=== PATIENT | male | born 1980 | race Caucasian/White ===

== ENCOUNTER 2016-04-18 19:01 | Emergency (ER) | payer MEDICAID ==
[2016-04-18 19:18] VITALS: BP 137/97
[2016-04-18] MEDS ORDERED: Ketorolac 60 MG/2 ML SDV IM ONE (19:27)
[2016-04-18] MEDS ORDERED: cefTRIAXone 1 GM, Lidocaine 1% 2.1 ML IM ONE ×2 (19:27)
[2016-04-18] MEDS ORDERED: Acetaminophen/oxyCODONE 325-5 MG Tab PO ONE (19:28)
[2016-04-18] MEDS ORDERED: Lidocaine 4% Top Soln 50 ML Bottle MUCMEM ONE (19:29)
--- NOTE | 2016-04-18 19:35 | EDM.PDOC ---
ED HPI ENT - General Chief Complaint: ENT Problem Stated Complaint: BAD TOOTHACHE LEFT SIDE Time Seen by Provider: 04/18/16 19:29 Source: Reports: Patient History Limitations: Reports: No limitations - History of Present Illness INITIAL COMMENTS - FREE TEXT/NARRATIVE: pt has severe pain in the left lower gum line. The gums are red and inflammed. Timing/Duration: Reports: Day(s):, Getting worse Location: Reports: mouth Associated symptoms: Reports: other (pt is not able to eat. He has had such severe pain. ) - Related Data Allergies/ADRs: Allergies Allergy/AdvReac Type Severity Reaction Status Date / Time No Known Allergies Allergy Verified 04/18/16 19:18 Home Meds: Home Meds Baclofen [Baclofen] 10 mg PO TID 12/07/15 [History] Gabapentin [Gabapentin] 300 mg PO TID 12/07/15 [History] Past Medical History HEENT History: Reports: Other (see below) Other HEENT History: Carries Other Cardiovascular History: episode of blackouts Musculoskeletal History: Reports: Back pain, chronic Psychiatric History: Reports: Anxiety, Depression - Past Surgical History Neurological Surgical History: Reports: Laminectomy Musculoskeletal Surgical History: Reports: Other (see below) Other Musculoskeletal Surgeries/Procedures:: low back surgery Social & Family History - Tobacco Use Smoking Status *Q: Current Status Unknown Years of Tobacco use: 15 Packs/Tins Daily: 0.5 Used Tobacco, but Quit: No Second Hand Smoke Exposure: Yes - Caffeine Use Caffeine Use: Reports: Soda - Alcohol Use Days Per Week of Alcohol Use: 2 Number of Drinks Per Day: 6 Total Drinks Per Week: 12 - Recreational Drug Use Recreational Drug Use: No ED ROS ENT - Review of Systems Review Of Systems: See Below Constitutional: Reports: no symptoms HEENT: Reports: Dental pain Respiratory: Reports: no symptoms Cardiovascular: Reports: No symptoms Endocrine: Reports: no symptoms GI/Abdominal: Reports: No symptoms : Reports: no symptoms Musculoskeletal: Reports: no symptoms ED EXAM, ENT - Physical Exam Exam: See Below Text/Narrative:: pt has severe pain in a very carious tooth left lower. He has severe inflamation in the gum line. Exam Limited By: No limitations General Appearance: alert, anxious Ears: normal TMs Nose: normal inspection Mouth/Throat: Other (pt has a markedly inflamed gum line this is swollen. He was very demanding that he would hve the tooth pulled. I did explain to him that we do not pull teeth in [place] and he needed to be on antibiotics prior to the extraction. ) Head: atraumatic Neck: normal inspection Respiratory/Chest: no respiratory distress Cardiovascular: regular rate, rhythm GI/Abdominal: soft, non tender Course - Vital Signs Last Recorded V/S: Last Vital Signs Temp 36.1 C 04/18/16 19:14 Pulse 136 H 04/18/16 19:14 Resp 15 04/18/16 19:14 BP 137/97 H 04/18/16 19:14 Pulse Ox 94 L 04/18/16 19:14 - Orders/Labs/Meds Meds: Medications Discontinued Medications Generic Name Dose Route Start Last Admin Trade Name Matiq PRN Reason Stop Dose Admin Ceftriaxone Sodium 1 gm/ 0 gm 04/18/16 19:27 Lidocaine HCl 2.1 ml IM 04/18/16 19:28 ONETIME ONE Ketorolac Tromethamine 60 mg 04/18/16 19:27 Toradol IM 04/18/16 19:28 ONETIME ONE Lidocaine HCl 1 ml 04/18/16 19:29 Xylocaine 4% Top Soln MUCMEM 04/18/16 19:30 ONETIME ONE Oxycodone/Acetaminophen 1 tab 04/18/16 19:28 Percocet 325-5 Mg PO 04/18/16 19:29 ONETIME ONE - Re-Assessments/Exams Free Text/Narrative Re-Assessment/Exam: 04/18/16 19:41 pt was to receive torodol, percocet, and rocephen. He was to have a pack applied with 4% lidocaine to the site and he could reapply several times during the night. I advised I would do a referal to [facility] for 8 fifteen tomorrow. The nurse was getting the meds together and at that time the pt walked out and did not receive any of the treatment. Departure - Departure Time of Disposition: 19:44 Disposition: Eloped 07 Condition: fair Clinical Impression: Infected tooth Referrals: Jacob Lowe PA-C [Primary Care Provider] - Forms: ED Department Discharge Care Plan Goals: pt eloped without getting his treatment
== END 2016-04-18 20:00 | disposition left against medical advice (07) ==
LOC: JP.ED 19:01
DX: K04.7 Periapical abscess without sinus (principal); Z79.899 Other long term (current) drug therapy
CPT/HCPCS: 96372; 96374; 99283-25; A9270-GY

== ENCOUNTER 2017-04-27 11:10 | Emergency (ER) | payer OTHER, MEDICAID ==
[2017-04-27 11:48] VITALS: BP 116/84
--- NOTE | 2017-04-27 11:58 | EDM.PDOC ---
ED HPI GENERAL MEDICAL PROBLEM - General Chief Complaint: Back Pain or Injury Stated Complaint: BACK PAIN Time Seen by Provider: 04/27/17 11:58 Source of Information: Reports: Patient History Limitations: Reports: No Limitations - History of Present Illness INITIAL COMMENTS - FREE TEXT/NARRATIVE: pt works at the [employer] and he lifted a heavy barrel today and he felt like something gave way in his back He now has marked tightness in his lower back and more pain on the left side. Onset: Today Duration: Hour(s):, Getting Worse Location: Reports: Back Associated Symptoms: Reports: No Other Symptoms Lower Back Pain Score (Numeric/FACES): 9 - Related Data Allergies Allergy/AdvReac Type Severity Reaction Status Date / Time No Known Allergies Allergy Verified 04/18/16 19:18 Home Meds: Home Meds Lisinopril 10 mg PO DAILY 04/27/17 [History] PARoxetine [Paxil] 40 mg PO DAILY 04/27/17 [History] Past Medical History HEENT History: Reports: Other (See Below) Other HEENT History: Carries Other Cardiovascular History: episode of blackouts Musculoskeletal History: Reports: Back Pain, Chronic Psychiatric History: Reports: Anxiety, Depression - Past Surgical History Neurological Surgical History: Reports: Laminectomy Musculoskeletal Surgical History: Reports: Other (See Below) Social & Family History - Tobacco Use Smoking Status *Q: Current Every Day Smoker Years of Tobacco use: 17 Packs/Tins Daily: 1 Used Tobacco, but Quit: No Second Hand Smoke Exposure: Yes - Caffeine Use Caffeine Use: Reports: Coffee, Soda, Tea - Alcohol Use Days Per Week of Alcohol Use: 2 Number of Drinks Per Day: 6 Total Drinks Per Week: 12 - Recreational Drug Use Recreational Drug Use: No ED ROS GENERAL - Review of Systems Review Of Systems: See Below Constitutional: Reports: No Symptoms HEENT: Reports: No Symptoms Respiratory: Reports: No Symptoms Cardiovascular: Reports: No Symptoms Endocrine: Reports: No Symptoms GI/Abdominal: Reports: No Symptoms : Reports: No Symptoms Musculoskeletal: Reports: Other ( increased lower back pain. ) Skin: Reports: No Symptoms Neurological: Reports: No Symptoms ED EXAM,LOWER BACK PAIN/INJURY - Physical Exam Exam: See Below Text/Narrative:: pt arrived with pain in the lower lumbar area. He feels very tight on the left side. He has some pain which is radiating over the left buttock area. Exam Limited By: No Limitations General Appearance: Alert, Anxious Ears: Normal TMs Nose: Normal Inspection Throat/Mouth: Normal Inspection Head: Atraumatic Neck: Normal Inspection Respiratory/Chest: No Respiratory Distress Cardiovascular: Regular Rate, Rhythm GI/Abdominal: Soft, Non-Tender (Male) Exam: Deferred Back Exam: Muscle Spasm, Paraspinal Tenderness, Other (lower lumbar pin) Neurological: Alert, Oriented x 3 Psychiatric: Normal Affect Course - Vital Signs Last Recorded V/S: Last Vital Signs Temp 36.3 C 04/27/17 11:45 Pulse 108 H 04/27/17 11:45 Resp 16 04/27/17 11:45 BP 116/84 04/27/17 11:45 Pulse Ox 97 04/27/17 11:45 - Orders/Labs/Meds Orders: Active Orders 24 hr Category Date Time Status Lumbar Spine Min 4V [CR] Stat Exams 04/27/17 12:04 Taken Meds: Medications Discontinued Medications Generic Name Dose Route Start Last Admin Trade Name Freq PRN Reason Stop Dose Admin Cyclobenzaprine HCl 10 mg 04/27/17 12:02 04/27/17 12:14 Flexeril PO 04/27/17 12:03 10 mg ONETIME ONE Administration Ketorolac Tromethamine 60 mg 04/27/17 12:03 04/27/17 12:14 Toradol IM 04/27/17 12:04 60 mg ONETIME ONE Administration Oxycodone/Acetaminophen 1 tab 04/27/17 12:04 04/27/17 12:14 Percocet 325-5 Mg PO 04/27/17 12:05 1 tab ONETIME ONE Administration - Re-Assessments/Exams Free Text/Narrative Re-Assessment/Exam: 04/27/17 12:38 pt was given torodol 60mg im and percocet 5/325 . He is more comfortable. Xrays were obtained which did not show any disruption of his previous fusion. Departure - Departure Time of Disposition: 12:40 Disposition: Home, Self-Care 01 Condition: Fair Clinical Impression: Lumbar back sprain - Discharge Information Referrals: PCP,None [Primary Care Provider] - Forms: ED Department Discharge Care Plan Goals: rest, ice pack to lower rt lumbar area, flexeril 10 mg bid, motrin 600mg tid, percocet 5/325 q6h prn for pain. - My Orders Last 24 Hours: My Active Orders 04/27/17 12:04 Lumbar Spine Min 4V [CR] Stat - Assessment/Plan Last 24 Hours: My Active Orders 04/27/17 12:04 Lumbar Spine Min 4V [CR] Stat
[2017-04-27] MEDS: Acetaminophen/oxyCODONE 325-5 MG Tab PO ONE (12:14)
[2017-04-27] MEDS: Cyclobenzaprine 10 MG Tab PO ONE (12:14)
[2017-04-27] MEDS: Ketorolac 60 MG/2 ML SDV IM ONE (12:14)
--- NOTE | 2017-04-27 13:04 | CR ---
L-spine There is posterior surgical fusion at the L4/5 and L5/S1 levels. The hardware is intact. There is no evidence of instability with flexion or extension. There are disc spacers in place. Impression: 1. Postsurgical changes of lumbar spine without evidence for complication.
== END 2017-04-27 12:53 | disposition home or self-care (01) ==
LOC: JP.ED 11:10
DX: S33.5XXA Sprain of ligaments of lumbar spine, initial encounter (principal); F17.210 Nicotine dependence, cigarettes, uncomplicated; X50.0XXA Overexertion from strenuous movement or load, initial encounter; Y92.89 Other specified places as the place of occurrence of the external cause; Y99.0 Civilian activity done for income or pay; Z79.899 Other long term (current) drug therapy
CPT/HCPCS: 72110; 72110-26; 96372; 99284-25; A9270-GY; J1885

== ENCOUNTER 2018-04-09 15:53 | Inpatient (IN) | payer MEDICAID ==
[2018-04-09] MEDS ORDERED: Sodium Chloride 0.9% 1,000 ML IV SCH ×2 (16:15→19:20)
--- NOTE | 2018-04-09 16:34 | EDM.PDOC ---
ED HPI GENERAL MEDICAL PROBLEM - General Chief Complaint: General Stated Complaint: VIA [facility] Time Seen by Provider: 04/09/18 16:24 Source of Information: Reports: Patient History Limitations: Reports: No Limitations - History of Present Illness INITIAL COMMENTS - FREE TEXT/NARRATIVE: pt arrived with ahistory of falling to the floor when he stood up. He has done this several times. He did hit the back of his head today. He has drank about 1/ 8 of a liter of vodka today. Onset: Gradual, Other (pt drinks every day and he has passed out in the past. ) Duration: Hour(s): Location: Reports: Head, Abdomen Associated Symptoms: Reports: Syncope, Other (possible seizure) - Related Data Allergies Allergy/AdvReac Type Severity Reaction Status Date / Time No Known Allergies Allergy Verified 04/18/16 19:18 Home Meds: Home Meds Lisinopril 5 mg PO DAILY 04/27/17 [History] Baclofen 10 mg PO TID 04/09/18 [History] DULoxetine HCl [Duloxetine HCl] 30 mg PO DAILY 04/09/18 [History] Mirtazapine 7.5 mg PO BEDTIME PRN 04/09/18 [History] Topiramate [Topamax] 25 mg PO BID 04/09/18 [History] Past Medical History HEENT History: Reports: Other (See Below) Other HEENT History: Carries Other Cardiovascular History: episode of blackouts Musculoskeletal History: Reports: Back Pain, Chronic Psychiatric History: Reports: Anxiety, Depression - Past Surgical History Neurological Surgical History: Reports: Laminectomy Musculoskeletal Surgical History: Reports: Other (See Below) Social & Family History - Tobacco Use Smoking Status *Q: Heavy Tobacco Smoker Years of Tobacco use: 19 Packs/Tins Daily: 1 - Caffeine Use Caffeine Use: Reports: None - Alcohol Use Days Per Week of Alcohol Use: 7 Number of Drinks Per Day: 1 Total Drinks Per Week: 7 - Recreational Drug Use Recreational Drug Use: No ED ROS GENERAL - Review of Systems Review Of Systems: See Below Constitutional: Reports: Weakness, Decreased Appetite, Other (pt drinks regularly ) HEENT: Reports: No Symptoms Respiratory: Reports: No Symptoms Cardiovascular: Reports: No Symptoms Endocrine: Reports: No Symptoms GI/Abdominal: Reports: Decreased Appetite, Other (pt is drinking heavily. ) : Reports: No Symptoms Musculoskeletal: Reports: No Symptoms Skin: Reports: No Symptoms ED EXAM, GENERAL - Physical Exam Exam: See Below Free Text/Narrative:: pt appears clinically jaundiced. Pt fell and hit the back of his head. He did have syncopal episode. He drinks heavily 1.5 liters per day. Exam Limited By: No Limitations General Appearance: Alert, Anxious, Mild Distress, Other (pt appears clically jaundiced. ) Ears: Normal TMs Nose: Normal Inspection Throat/Mouth: Normal Inspection Head: Atraumatic Neck: Normal Inspection Respiratory/Chest: No Respiratory Distress Cardiovascular: Regular Rate, Rhythm, Tachycardia GI/Abdominal: Other (mild tenderness over the liver edge which is down 2 finger breaths. ) (Male) Exam: Deferred Rectal (Males) Exam: Deferred Back Exam: Normal Inspection Extremities: Normal Inspection Neurological: Alert, Oriented, Normal Cognition Psychiatric: Anxious Course - Vital Signs Last Recorded V/S: Last Vital Signs Temp 35.3 C 04/09/18 16:00 Pulse 98 04/09/18 16:00 Resp 14 04/09/18 16:00 BP 120/78 04/09/18 16:00 Pulse Ox 99 04/09/18 16:00 Orthostatic Blood Pressure [ 97/60 Standing] Orthostatic Blood Pressure [ 115/80 Sitting] Orthostatic Blood Pressure [ 126/82 Supine] - Orders/Labs/Meds Orders: Active Orders 24 hr Category Date Time Status Orthostatic Vital Signs [RC] ASDIRECTED Care 04/09/18 16:37 Active Abdomen Pelvis w Cont [CT] Stat Exams 04/09/18 17:19 Ordered DRUG SCREEN, URINE [URCHEM] Stat Lab 04/09/18 16:22 Ordered HEPATITIS PANEL (4) Stat Lab 04/09/18 16:46 Ordered UA W/MICROSCOPIC [URIN] Urgent Lab 04/09/18 16:04 Ordered Iopamidol [Isovue-300 (61%)] Med 04/09/18 17:30 Ordered 96 ml IV . DIRECTED Sodium Chloride 0.9% [Normal Saline] 1,000 ml Med 04/09/18 16:15 Active IV ASDIRECTED Sodium Chloride 0.9% [Normal Saline] 70 ml Med 04/09/18 17:30 Ordered IV ASDIRECTED Sodium Chloride 0.9% [Saline Flush] Med 04/09/18 17:27 Once 10 ml FLUSH ONETIME ONE Sodium Chloride 0.9% with KCl [Normal Saline with 40 Med 04/09/18 17:15 Active mEq KCl] 1,000 ml IV ASDIRECTED Medication Orders Sodium Chloride (Normal Saline) 1,000 mls @ 999 mls/hr IV ASDIRECTED RUSS Last Admin: 04/09/18 16:22 Dose: 999 mls/hr Potassium Chloride/Sodium Chloride (Normal Saline With 40 Meq Kcl) 1,000 mls @ 300 mls/hr IV ASDIRECTED RUSS Sodium Chloride (Normal Saline) 70 mls @ 3 mls/sec IV ASDIRECTED RUSS Iopamidol (Isovue-300 (61%)) 96 ml IV . DIRECTED RUSS Sodium Chloride (Saline Flush) 10 ml FLUSH ONETIME ONE Stop: 04/09/18 17:28 Labs: Laboratory Tests 04/09/18 04/09/18 04/09/18 Range/Units 16:04 16:04 16:04 WBC 4.5 (4.5-11.0) K/uL RBC 3.75 L (4.30-5.90) M/uL Hgb 12.3 (12.0-15.0) g/dL Hct 35.5 L (40.0-54.0) % MCV 95 (80-98) fL MCH 33 H (27-31) pg MCHC 35 (32-36) % Plt Count 85 L (150-400) K/uL Neut % (Auto) 48 (36-66) % Lymph % (Auto) 41 (24-44) % [place] % (Auto) 10 H (2-6) % Eos % (Auto) 1 L (2-4) % Baso % (Auto) 1 (0-1) % Sodium 132 L (140-148) mmol/L Potassium 3.2 L (3.6-5.2) mmol/L Chloride 90 L (100-108) mmol/L Carbon Dioxide 28 (21-32) mmol/L Anion Gap 17.2 H (5.0-14.0) mmol/L BUN 5 L (7-18) mg/dL Creatinine 0.7 L (0.8-1.3) mg/dL Est Cr Clr Drug Dosing 132.30 mL/min Estimated GFR (MDRD) > 60 (>60) Glucose 112 H (74-106) mg/dL Calcium 9.1 (8.5-10.1) mg/dL Total Bilirubin 7.7 H (0.2-1.0) mg/dL AST 213 H (15-37) U/L ALT 70 (12-78) U/L Alkaline Phosphatase 327 H (46-116) U/L Total Protein 7.0 (6.4-8.2) g/dL Albumin 2.7 L (3.4-5.0) g/dL Globulin 4.3 H (2.3-3.5) g/dL Albumin/Globulin Ratio 0.6 L (1.2-2.2) Amylase (25-115) U/L Lipase (73-393) U/L Ethyl Alcohol 261 mg/dL 04/09/18 04/09/18 Range/Units 16:39 17:14 WBC (4.5-11.0) K/uL RBC (4.30-5.90) M/uL Hgb (12.0-15.0) g/dL Hct (40.0-54.0) % MCV (80-98) fL MCH (27-31) pg MCHC (32-36) % Plt Count (150-400) K/uL Neut % (Auto) (36-66) % Lymph % (Auto) (24-44) % [place] % (Auto) (2-6) % Eos % (Auto) (2-4) % Baso % (Auto) (0-1) % Sodium (140-148) mmol/L Potassium (3.6-5.2) mmol/L Chloride (100-108) mmol/L Carbon Dioxide (21-32) mmol/L Anion Gap (5.0-14.0) mmol/L BUN (7-18) mg/dL Creatinine (0.8-1.3) mg/dL Est Cr Clr Drug Dosing mL/min Estimated GFR (MDRD) (>60) Glucose (74-106) mg/dL Calcium (8.5-10.1) mg/dL Total Bilirubin (0.2-1.0) mg/dL AST (15-37) U/L ALT (12-78) U/L Alkaline Phosphatase (46-116) U/L Total Protein (6.4-8.2) g/dL Albumin (3.4-5.0) g/dL Globulin (2.3-3.5) g/dL Albumin/Globulin Ratio (1.2-2.2) Amylase 68 (25-115) U/L Lipase 861 H (73-393) U/L Ethyl Alcohol mg/dL Meds: Medications Generic Name Dose Route Start Last Admin Trade Name Freq PRN Reason Stop Dose Admin Sodium Chloride 1,000 mls @ 999 mls/hr 04/09/18 16:15 04/09/18 16:22 Normal Saline IV 999 mls/hr ASDIRECTED RUSS Administration Potassium Chloride/Sodium Chloride 1,000 mls @ 300 mls/hr 04/09/18 17:15 Normal Saline With 40 Meq Kcl IV ASDIRECTED RUSS Sodium Chloride 70 mls @ 3 mls/sec 04/09/18 17:30 Normal Saline IV ASDIRECTED RUSS Iopamidol 96 ml 04/09/18 17:30 Isovue-300 (61%) IV . DIRECTED RUSS Sodium Chloride 10 ml 04/09/18 17:27 Saline Flush FLUSH 04/09/18 17:28 ONETIME ONE - Re-Assessments/Exams Free Text/Narrative Re-Assessment/Exam: 04/09/18 17:34 pt has a bilirubin of 7.7. His lipase is elevated over 800. His amylase is normal. His liver enzymes are elevated. He has sig postural hypotension which I believe is causing the syncope. Departure - Departure Time of Disposition: 17:35 Disposition: Admitted As Inpatient 66 Condition: Fair Clinical Impression: Jaundice, Alcohol abuse, Pancreatitis, Contusion of head, Postural hypotension - Discharge Information Referrals: PCP,None [Primary Care Provider] - Forms: ED Department Discharge Care Plan Goals: admit to Dr Arevalo - My Orders Last 24 Hours: My Active Orders 04/09/18 16:04 UA W/MICROSCOPIC [URIN] Urgent 04/09/18 16:15 Sodium Chloride 0.9% [Normal Saline] 1,000 ml IV ASDIRECTED 04/09/18 16:22 DRUG SCREEN, URINE [URCHEM] Stat 04/09/18 16:37 Orthostatic Vital Signs [RC] ASDIRECTED 04/09/18 16:46 HEPATITIS PANEL (4) Stat 04/09/18 17:15 Sodium Chloride 0.9% with KCl [Normal Saline with 40 mEq KCl] 1,000 ml IV ASDIRECTED 04/09/18 17:19 Abdomen Pelvis w Cont [CT] Stat 04/09/18 17:27 Sodium Chloride 0.9% [Saline Flush] 10 ml FLUSH ONETIME ONE 04/09/18 17:30 Iopamidol [Isovue-300 (61%)] 96 ml IV . DIRECTED Sodium Chloride 0.9% [Normal Saline] 70 ml IV ASDIRECTED - Assessment/Plan Last 24 Hours: My Active Orders 04/09/18 16:04 UA W/MICROSCOPIC [URIN] Urgent 04/09/18 16:15 Sodium Chloride 0.9% [Normal Saline] 1,000 ml IV ASDIRECTED 04/09/18 16:22 DRUG SCREEN, URINE [URCHEM] Stat 04/09/18 16:37 Orthostatic Vital Signs [RC] ASDIRECTED 04/09/18 16:46 HEPATITIS PANEL (4) Stat 04/09/18 17:15 Sodium Chloride 0.9% with KCl [Normal Saline with 40 mEq KCl] 1,000 ml IV ASDIRECTED 04/09/18 17:19 Abdomen Pelvis w Cont [CT] Stat 04/09/18 17:27 Sodium Chloride 0.9% [Saline Flush] 10 ml FLUSH ONETIME ONE 04/09/18 17:30 Iopamidol [Isovue-300 (61%)] 96 ml IV . DIRECTED Sodium Chloride 0.9% [Normal Saline] 70 ml IV ASDIRECTED
[2018-04-09] MEDS ORDERED: Sodium Chloride 0.9% with KCl 1,000 ML IV SCH (17:15)
[2018-04-09] MEDS ORDERED: Sodium Chloride 0.9% 10 ML Syringe FLUSH ONE (17:27)
[2018-04-09] MEDS ORDERED: Iopamidol 612 MG/ML 100 ML Bottle IV SCH (17:30)
--- NOTE | 2018-04-09 17:30 | CRLCT ---
INDICATION: Trauma. TECHNIQUE: Noncontrast axial images. COMPARISON: 07/28/2014. FINDINGS: There is no abnormal intracranial mass effect or midline shift. No intracranial hemorrhage. No areas of abnormal attenuation are seen with the brain. CSF spaces are age-appropriate. No skull fracture. Minor mucosal thickening scattered throughout the visualized paranasal sinuses. Mastoids are clear. IMPRESSION: No CT evidence of an acute intracranial abnormality. Dictated by Ron Rivera MD @ 04/09/2018 5:29:27 PM Please note that all CT scans at this facility use dose modulation, iterative reconstruction, and/or weight-based dosing when appropriate to reduce radiation dose to as low as reasonably achievable. Dictated by: Ron Rivera MD @ 04/09/2018 17:29:31 (Electronically Signed)
--- NOTE | 2018-04-09 17:44 | PCM.HP ---
H&P History of Present Illness - General Date of Service: 04/09/18 Admit Problem/Dx: Admission Diagnosis/Problem Admission Diagnosis/Problem Cirrhosis of liver Source of Information: Patient, Family, Provider, RN Notes Reviewed History Limitations: Reports: No Limitations - History of Present Illness Initial Comments - Free Text/Narative: Mr. Knowles is a 37-year-old gentleman who was admitted through the emergency department with weakness and a syncopal episode secondary to long-standing alcohol abuse and underlying cirrhosis. He has a long-standing history of daily alcohol use and recently has been consuming 1.75 L of vodka per day. He reports symptoms of lightheadedness frequently when he attempts to stand. His mother went to visit him today and witnessed him blacking out after he stood up. He did have a brief episode of tonic-clonic movement after he passed out that lasted approximately 10 seconds. On evaluation in the emergency department his found to have an alcohol level of 260. CT scan of the head was obtained showing no acute abnormalities. Bilirubin is elevated at 7.7 with more modest elevation in AST and alkaline phosphatase. - Related Data Allergies/Adverse Reactions: Allergies Allergy/AdvReac Type Severity Reaction Status Date / Time No Known Allergies Allergy Verified 04/18/16 19:18 Home Medications: Home Meds Lisinopril 5 mg PO DAILY 04/27/17 [History] Baclofen 10 mg PO TID 04/09/18 [History] DULoxetine HCl [Duloxetine HCl] 30 mg PO DAILY 04/09/18 [History] Mirtazapine 7.5 mg PO BEDTIME PRN 04/09/18 [History] Topiramate [Topamax] 25 mg PO BID 04/09/18 [History] Past Medical History HEENT History: Reports: Other (See Below) Other HEENT History: Carries Other Cardiovascular History: episode of blackouts Musculoskeletal History: Reports: Back Pain, Chronic Psychiatric History: Reports: Anxiety, Depression - Past Surgical History Neurological Surgical History: Reports: Laminectomy Musculoskeletal Surgical History: Reports: Other (See Below) Social & Family History - Tobacco Use Smoking Status *Q: Heavy Tobacco Smoker Years of Tobacco use: 19 Packs/Tins Daily: 1 - Caffeine Use Caffeine Use: Reports: None - Alcohol Use Days Per Week of Alcohol Use: 7 Number of Drinks Per Day: 1 Total Drinks Per Week: 7 - Recreational Drug Use Recreational Drug Use: No H&P Review of Systems - Review of Systems: Review Of Systems: See Below General: Reports: Weakness. Denies: Fever, Chills HEENT: Reports: No Symptoms Pulmonary: Reports: No Symptoms Cardiovascular: Reports: Lightheadedness, Syncope. Denies: Chest Pain, Palpitations, Dyspnea on Exertion, Orthopnea, PND, Edema Gastrointestinal: Reports: No Symptoms Genitourinary: Reports: No Symptoms Musculoskeletal: Reports: Back Pain Skin: Reports: No Symptoms Psychiatric: Reports: No Symptoms Neurological: Reports: No Symptoms Hematologic/Lymphatic: Reports: No Symptoms Immunologic: Reports: No Symptoms Exam - Exam Exam: See Below - Vital Signs Vital Signs: Last Vital Signs Temp 95.6 F 04/09/18 16:00 Pulse 98 04/09/18 16:00 Resp 14 04/09/18 16:00 BP 120/78 04/09/18 16:00 Pulse Ox 99 04/09/18 16:00 Orthostatic Blood Pressure [ 97/60 Standing] Orthostatic Blood Pressure [ 115/80 Sitting] Orthostatic Blood Pressure [ 126/82 Supine] Weight: 140 lb - Exam Quality Assessment: DVT Prophylaxis General: Alert, Oriented, Cooperative, Mild Distress HEENT: Conjunctiva Clear, Hearing Intact, Normal Nasal Septum, Posterior Pharynx Clear, Pupils Equal. No: Mucosa Moist & [place] Neck: Supple, Trachea Midline, +2 Carotid Pulse wo Bruit Lungs: Clear to Auscultation, Normal Respiratory Effort Cardiovascular: Regular Rate, Regular Rhythm, Normal S1, Normal S2. No: Systolic Murmur, Diastolic Murmur GI/Abdominal Exam: Soft, Non-Tender, No Organomegaly, No Distention Back Exam: Normal Inspection, Full Range of Motion Extremities: Non-Tender, No Pedal Edema Skin: Warm, Dry Neurological: Cranial Nerves Intact, Strength Equal Bilateral, Normal Speech, Normal Tone, Sensation Intact. No: Focal Deficit Neuro Extensive - Mental Status: Alert, Oriented x3, Normal Mood/Affect, Normal Cognition, Memory Intact - Patient Data Lab Results Last 24 hrs: Laboratory Results - last 24 hr 04/09/18 04/09/18 04/09/18 Range/Units 16:04 16:04 16:04 WBC 4.5 (4.5-11.0) K/uL RBC 3.75 L (4.30-5.90) M/uL Hgb 12.3 (12.0-15.0) g/dL Hct 35.5 L (40.0-54.0) % MCV 95 (80-98) fL MCH 33 H (27-31) pg MCHC 35 (32-36) % Plt Count 85 L (150-400) K/uL Neut % (Auto) 48 (36-66) % Lymph % (Auto) 41 (24-44) % [place] % (Auto) 10 H (2-6) % Eos % (Auto) 1 L (2-4) % Baso % (Auto) 1 (0-1) % Sodium 132 L (140-148) mmol/L Potassium 3.2 L (3.6-5.2) mmol/L Chloride 90 L (100-108) mmol/L Carbon Dioxide 28 (21-32) mmol/L Anion Gap 17.2 H (5.0-14.0) mmol/L BUN 5 L (7-18) mg/dL Creatinine 0.7 L (0.8-1.3) mg/dL Est Cr Clr Drug Dosing 132.30 mL/min Estimated GFR (MDRD) > 60 (>60) Glucose 112 H (74-106) mg/dL Calcium 9.1 (8.5-10.1) mg/dL Total Bilirubin 7.7 H (0.2-1.0) mg/dL AST 213 H (15-37) U/L ALT 70 (12-78) U/L Alkaline Phosphatase 327 H (46-116) U/L Total Protein 7.0 (6.4-8.2) g/dL Albumin 2.7 L (3.4-5.0) g/dL Globulin 4.3 H (2.3-3.5) g/dL Albumin/Globulin Ratio 0.6 L (1.2-2.2) Amylase (25-115) U/L Lipase (73-393) U/L Ethyl Alcohol 261 mg/dL 04/09/18 04/09/18 Range/Units 16:39 17:14 WBC (4.5-11.0) K/uL RBC (4.30-5.90) M/uL Hgb (12.0-15.0) g/dL Hct (40.0-54.0) % MCV (80-98) fL MCH (27-31) pg MCHC (32-36) % Plt Count (150-400) K/uL Neut % (Auto) (36-66) % Lymph % (Auto) (24-44) % [place] % (Auto) (2-6) % Eos % (Auto) (2-4) % Baso % (Auto) (0-1) % Sodium (140-148) mmol/L Potassium (3.6-5.2) mmol/L Chloride (100-108) mmol/L Carbon Dioxide (21-32) mmol/L Anion Gap (5.0-14.0) mmol/L BUN (7-18) mg/dL Creatinine (0.8-1.3) mg/dL Est Cr Clr Drug Dosing mL/min Estimated GFR (MDRD) (>60) Glucose (74-106) mg/dL Calcium (8.5-10.1) mg/dL Total Bilirubin (0.2-1.0) mg/dL AST (15-37) U/L ALT (12-78) U/L Alkaline Phosphatase (46-116) U/L Total Protein (6.4-8.2) g/dL Albumin (3.4-5.0) g/dL Globulin (2.3-3.5) g/dL Albumin/Globulin Ratio (1.2-2.2) Amylase 68 (25-115) U/L Lipase 861 H (73-393) U/L Ethyl Alcohol mg/dL Result Diagrams: 04/09/18 16:04 04/09/18 16:04 *Q Meaningful Use (ADM) - VTE Risk Assess *Q Each Risk Factor Represents 1 Point: None Total Score 1 Point Risk Factors: 0 Each Risk Factor Represents 2 Points: None Total Score 2 Point Risk Factors: 0 Each Risk Factor Represents 3 Points: None Total Score 3 Point Risk Factors: 0 Each Risk Factor Represents 5 Points: None Total Score 5 Point Risk Factors: 0 Venous Thromboembolism Risk Factor Score *Q: 0 Problem List Initiated/Reviewed/Updated: Yes Orders Last 24hrs: Active Orders 24 hr Category Date Time Status Patient Status Manage Transfer [TRANSFER] Routine ADT 04/09/18 17:32 Active Orthostatic Vital Signs [RC] ASDIRECTED Care 04/09/18 16:37 Active Abdomen Pelvis w Cont [CT] Stat Exams 04/09/18 17:19 Ordered DRUG SCREEN, URINE [URCHEM] Stat Lab 04/09/18 16:22 Ordered HEPATITIS PANEL (4) Stat Lab 04/09/18 16:46 Ordered UA W/MICROSCOPIC [URIN] Urgent Lab 04/09/18 16:04 Ordered Iopamidol [Isovue-300 (61%)] Med 04/09/18 17:30 Active 96 ml IV . DIRECTED Sodium Chloride 0.9% [Normal Saline] 1,000 ml Med 04/09/18 16:15 Active IV ASDIRECTED Sodium Chloride 0.9% [Normal Saline] 70 ml Med 04/09/18 17:30 Active IV ASDIRECTED Sodium Chloride 0.9% with KCl [Normal Saline with 40 Med 04/09/18 17:15 Active mEq KCl] 1,000 ml IV ASDIRECTED Resuscitation Status Routine Resus Stat 04/09/18 17:35 Ordered Medication Orders Sodium Chloride (Normal Saline) 1,000 mls @ 999 mls/hr IV ASDIRECTED RUSS Last Admin: 04/09/18 16:22 Dose: 999 mls/hr Potassium Chloride/Sodium Chloride (Normal Saline With 40 Meq Kcl) 1,000 mls @ 300 mls/hr IV ASDIRECTED RUSS Last Admin: 04/09/18 17:31 Dose: 300 mls/hr Sodium Chloride (Normal Saline) 70 mls @ 3 mls/sec IV ASDIRECTED RUSS Iopamidol (Isovue-300 (61%)) 96 ml IV . DIRECTED [facility] Assessment/Plan Comment:: ASSESSMENT AND PLAN SYNCOPAL EPISODE-likely secondary to dehydration and intravascular volume depletion. Symptoms of lightheadedness and syncopal episodes have occurred after standing from a lying position. -IV fluids for hydration -Hold lisinopril ELEVATED BILIRUBIN-associated with more modest elevation in AST and ALT. There is evidence of cirrhosis with thrombocytopenia, likely secondary to portal vein hypertension and splenic enlargement. -Direct bilirubin and INR in a.m. -Stop all alcohol use -Repeat liver enzymes in a.m. LONG-STANDING ALCOHOL USE AND ABUSE-monitor closely for alcohol withdrawal -Alcohol withdrawal protocol -Banana bag -Gabapentin 400 mg by mouth every 8 hours 4 days, then 200 mg by mouth every 8 hours 4 days CHRONIC LOW BACK PAIN MAINTENANCE ISSUES -DVT prophylaxis; SCUDs -GI prophylaxis; Protonix -Preston catheter; not indicated -Nutrition; regular diet -Nicotine dependence; not required CODE STATUS-FULL CODE ADMISSION STATUS-patient will be admitted to inpatient status, expect at least a 2 night hospital stay for evaluation and management of problems as outlined above. At the time of this admission I do not reasonably expected evaluation and management of this problem will require more than a 96 hour hospital stay. DISPOSITION-anticipate discharge to home after the hospital stay. PRIMARY CARE PROVIDER-
[2018-04-09] MEDS ORDERED: Potassium Chloride 20 MEQ Tab.ER PO ONE (18:31)
[2018-04-09] MEDS ORDERED: Potassium Chloride Riders 40 MEQ in Premix Bag 1 BAG IV ONE (18:31)
--- NOTE | 2018-04-09 19:18 | CRLCT ---
INDICATION: Elevated liver enzymes and lipase. COMPARISON: None available TECHNIQUE: CT examination of the abdomen and pelvis was performed with the uneventful intravenous administration of 100 cc of Isovue-300 while 3 mm thick axial sections were obtained from the lung bases through the pubic symphysis. Oral contrast was not administered. Please note that all CT scans at this facility use dose modulation, iterative reconstruction, and/or weight-based dosing when appropriate to reduce radiation dose to as low as reasonably achievable. FINDINGS: In the abdomen, the liver is quite low in density, representing prominent fatty infiltration. There is focal sparing of fatty infiltration adjacent to the gallbladder. There is no sign of mass. The spleen, pancreas and adrenals are normal in appearance. The kidneys are normal in appearance. The gallbladder is normal in appearance. The abdominal aorta is normal in caliber with no sign of dilatation. There is no sign of retroperitoneal mass or adenopathy. The stomach, loops of small bowel, and colon in the abdomen are normal in appearance. In the pelvis, the retrocecal appendix is normal in appearance with no sign of inflammatory process.. The loops of small bowel and colon in the pelvis are normal in appearance. The prostate is normal in appearance. The urinary bladder is normal in appearance. There is no sign of pelvic or inguinal mass or adenopathy. There is a small fat containing right indirect inguinal hernia. The lung bases are clear. There are changes of laminectomy and fusion from L4 through S1 with bilateral intrapedicular screws with vertical connecting hardware. The fused segments are in anatomic alignment. IMPRESSION: CT of the abdomen shows prominent fatty infiltration of the liver with focal sparing of fatty infiltration anterior to the gallbladder. No sign of biliary ductal dilatation. CT of the pelvis shows a small fat containing indirect right inguinal hernia. Status post laminectomy and fusion from L4 through S1. Please note that all CT scans at this facility use dose modulation, iterative reconstruction, and/or weight-based dosing when appropriate to reduce radiation dose to as low as reasonably achievable. Dictated by David Gaming MD @ Apr 09 2018 7:09PM Signed by Dr. David Gaming @ Apr 09 2018 7:16PM
[2018-04-09] MEDS ORDERED: MVI, Adult with Vitamin K 10 ML, Thiamine 100 MG, Folic Acid 1 MG, Magnesium Sulfate 2 ... IV ONE ×5 (19:20)
[2018-04-09] MEDS ORDERED: Ondansetron 4 MG/2 ML SDV IV PRN (19:20)
[2018-04-09] MEDS: Topiramate 25 MG Tab PO SCH (20:54)
[2018-04-09] MEDS: Gabapentin 400 MG Cap PO SCH (20:54)
[2018-04-09] MEDS: Pantoprazole 40 MG Vial IVPUSH SCH (20:54)
[2018-04-09] MEDS ORDERED: Lidocaine 1% 20 ML MDV ONE (22:00)
[2018-04-09] MEDS ORDERED: Potassium Chloride 100 ML ONE (22:14)
[2018-04-09] MEDS: Potassium Chloride 20 MEQ, Lidocaine 1% 2 ML in Sodium Chloride 0.9% 100 ML IV SCH (22:24)
[2018-04-10] MEDS ORDERED: Potassium Chloride 100 ML ONE (00:57)
[2018-04-10] MEDS: Potassium Chloride 20 MEQ, Lidocaine 1% 2 ML in Sodium Chloride 0.9% 100 ML IV SCH (01:01)
[2018-04-10] MEDS: Gabapentin 400 MG Cap PO SCH ×3 (04:43→19:32)
[2018-04-10] MEDS: LORazepam 1 MG Tab PO SCH ×3 (05:58→21:52)
[2018-04-10] MEDS: DULoxetine 30 MG Cap PO SCH (08:25)
[2018-04-10] MEDS: Folic Acid 1 MG Tab PO SCH (08:25)
[2018-04-10] MEDS: Topiramate 25 MG Tab PO SCH ×2 (08:25→21:52)
[2018-04-10] MEDS: Thiamine 100 MG Tab PO SCH (08:25)
[2018-04-10] MEDS: Ibuprofen 400 MG Tab PO PRN (08:27)
--- NOTE | 2018-04-10 10:21 | PCM.PN ---
- General Info Date of Service: 04/10/18 Subjective Update: Mr. Knowles has been fairly stable since admission, this morning he did develop tremulousness consistent with evolving alcohol withdrawal. Will manage thus far with use of lorazepam. He does have mild epigastric pain in his lipase level was noted to be further elevated this morning consistent with alcohol-induced pancreatitis. Functional Status: Reports: Pain Controlled, Urinating - Review of Systems General: Denies: Fever, Chills Pulmonary: Reports: No Symptoms Cardiovascular: Reports: No Symptoms Gastrointestinal: Reports: Abdominal Pain. Denies: Difficulty Swallowing, Hematochezia, Melena, Nausea, Vomiting - Patient Data Vitals - Most Recent: Last Vital Signs Temp 99.1 F 04/10/18 08:27 Pulse 102 H 04/10/18 08:00 Resp 17 04/10/18 08:00 BP 148/103 H 04/10/18 08:00 Pulse Ox 95 04/10/18 08:00 Orthostatic Blood Pressure [ 97/60 Standing] Orthostatic Blood Pressure [ 115/80 Sitting] Orthostatic Blood Pressure [ 126/82 Supine] Weight - Most Recent: 169 lb I&O - Last 24 Hours: Intake & Output 04/09/18 04/10/18 04/10/18 22:59 06:59 14:59 Intake Total 480 2329 Output Total 400 925 Balance 80 1404 Lab Results Last 24 Hours: Laboratory Results - last 24 hr 04/09/18 04/09/18 04/09/18 Range/Units 16:04 16:04 16:04 WBC 4.5 (4.5-11.0) K/uL RBC 3.75 L (4.30-5.90) M/uL Hgb 12.3 (12.0-15.0) g/dL Hct 35.5 L (40.0-54.0) % MCV 95 (80-98) fL MCH 33 H (27-31) pg MCHC 35 (32-36) % Plt Count 85 L (150-400) K/uL Neut % (Auto) 48 (36-66) % Lymph % (Auto) 41 (24-44) % [place] % (Auto) 10 H (2-6) % Eos % (Auto) 1 L (2-4) % Baso % (Auto) 1 (0-1) % PT (9.5-12.0) sec INR (0.80-1.20) Sodium 132 L (140-148) mmol/L Potassium 3.2 L (3.6-5.2) mmol/L Chloride 90 L (100-108) mmol/L Carbon Dioxide 28 (21-32) mmol/L Anion Gap 17.2 H (5.0-14.0) mmol/L BUN 5 L (7-18) mg/dL Creatinine 0.7 L (0.8-1.3) mg/dL Est Cr Clr Drug Dosing 132.30 mL/min Estimated GFR (MDRD) > 60 (>60) Glucose 112 H (74-106) mg/dL Calcium 9.1 (8.5-10.1) mg/dL Magnesium (1.8-2.4) mg/dL Total Bilirubin 7.7 H (0.2-1.0) mg/dL Direct Bilirubin (0.0-0.2) mg/dL AST 213 H (15-37) U/L ALT 70 (12-78) U/L Alkaline Phosphatase 327 H (46-116) U/L Total Protein 7.0 (6.4-8.2) g/dL Albumin 2.7 L (3.4-5.0) g/dL Globulin 4.3 H (2.3-3.5) g/dL Albumin/Globulin Ratio 0.6 L (1.2-2.2) Amylase (25-115) U/L Lipase (73-393) U/L Urine Color Urine Appearance Urine pH (4.5-8.0) Ur Specific Central (1.008-1.030) Urine Protein (NEGATIVE) mg/dL Urine Glucose (UA) (NEGATIVE) mg/dL Urine Ketones (NEGATIVE) mg/dL Urine Occult Blood (NEGATIVE) Urine Nitrite (NEGAITVE) Urine Bilirubin (NEGATIVE) Urine Urobilinogen (NORMAL) mg/dL Ur Leukocyte Esterase (NEGATIVE) Urine RBC (0-5) Urine WBC (0-5) Ur Epithelial Cells Amorphous Sediment Urine Bacteria Urine Mucus Urine Opiates Screen (NEGATIVE) Ur Oxycodone Screen (NEGATIVE) Urine Methadone Screen (NEGATIVE) Ur Propoxyphene Screen (NEGATIVE) Ur Barbiturates Screen (NEGATIVE) Ur Tricyclics Screen (NEGATIVE) Ur Phencyclidine Scrn (NEGATIVE) Ur Amphetamine Screen (NEGATIVE) U Methamphetamines Scrn (NEGATIVE) Urine MDMA Screen (NEGATIVE) U Benzodiazepines Scrn (NEGATIVE) U Cocaine Metab Screen (NEGATIVE) U Marijuana (THC) Screen (NEGATIVE) Ethyl Alcohol 261 mg/dL 04/09/18 04/09/18 04/09/18 Range/Units 16:39 17:14 20:34 WBC (4.5-11.0) K/uL RBC (4.30-5.90) M/uL Hgb (12.0-15.0) g/dL Hct (40.0-54.0) % MCV (80-98) fL MCH (27-31) pg MCHC (32-36) % Plt Count (150-400) K/uL Neut % (Auto) (36-66) % Lymph % (Auto) (24-44) % [place] % (Auto) (2-6) % Eos % (Auto) (2-4) % Baso % (Auto) (0-1) % PT (9.5-12.0) sec INR (0.80-1.20) Sodium (140-148) mmol/L Potassium (3.6-5.2) mmol/L Chloride (100-108) mmol/L Carbon Dioxide (21-32) mmol/L Anion Gap (5.0-14.0) mmol/L BUN (7-18) mg/dL Creatinine (0.8-1.3) mg/dL Est Cr Clr Drug Dosing mL/min Estimated GFR (MDRD) (>60) Glucose (74-106) mg/dL Calcium (8.5-10.1) mg/dL Magnesium (1.8-2.4) mg/dL Total Bilirubin (0.2-1.0) mg/dL Direct Bilirubin (0.0-0.2) mg/dL AST (15-37) U/L ALT (12-78) U/L Alkaline Phosphatase (46-116) U/L Total Protein (6.4-8.2) g/dL Albumin (3.4-5.0) g/dL Globulin (2.3-3.5) g/dL Albumin/Globulin Ratio (1.2-2.2) Amylase 68 (25-115) U/L Lipase 861 H (73-393) U/L Urine Color Other Urine Appearance Clear Urine pH 7.0 (4.5-8.0) Ur Specific Central 1.010 (1.008-1.030) Urine Protein Negative (NEGATIVE) mg/dL Urine Glucose (UA) Normal (NEGATIVE) mg/dL Urine Ketones Negative (NEGATIVE) mg/dL Urine Occult Blood Negative (NEGATIVE) Urine Nitrite Negative (NEGAITVE) Urine Bilirubin Moderate (NEGATIVE) Urine Urobilinogen 4 (NORMAL) mg/dL Ur Leukocyte Esterase Negative (NEGATIVE) Urine RBC Not seen (0-5) Urine WBC Not seen (0-5) Ur Epithelial Cells Not seen Amorphous Sediment Many Urine Bacteria Not seen Urine Mucus Not seen Urine Opiates Screen (NEGATIVE) Ur Oxycodone Screen (NEGATIVE) Urine Methadone Screen (NEGATIVE) Ur Propoxyphene Screen (NEGATIVE) Ur Barbiturates Screen (NEGATIVE) Ur Tricyclics Screen (NEGATIVE) Ur Phencyclidine Scrn (NEGATIVE) Ur Amphetamine Screen (NEGATIVE) U Methamphetamines Scrn (NEGATIVE) Urine MDMA Screen (NEGATIVE) U Benzodiazepines Scrn (NEGATIVE) U Cocaine Metab Screen (NEGATIVE) U Marijuana (THC) Screen (NEGATIVE) Ethyl Alcohol mg/dL 04/09/18 04/10/18 04/10/18 Range/Units 20:34 04:45 04:45 WBC 3.9 L (4.5-11.0) K/uL RBC 3.25 L (4.30-5.90) M/uL Hgb 10.8 L (12.0-15.0) g/dL Hct 31.5 L (40.0-54.0) % MCV 97 (80-98) fL MCH 33 H (27-31) pg MCHC 34 (32-36) % Plt Count 79 L (150-400) K/uL Neut % (Auto) 54 (36-66) % Lymph % (Auto) 36 (24-44) % [place] % (Auto) 8 H (2-6) % Eos % (Auto) 1 L (2-4) % Baso % (Auto) 1 (0-1) % PT (9.5-12.0) sec INR (0.80-1.20) Sodium (140-148) mmol/L Potassium (3.6-5.2) mmol/L Chloride (100-108) mmol/L Carbon Dioxide (21-32) mmol/L Anion Gap (5.0-14.0) mmol/L BUN (7-18) mg/dL Creatinine (0.8-1.3) mg/dL Est Cr Clr Drug Dosing mL/min Estimated GFR (MDRD) (>60) Glucose (74-106) mg/dL Calcium (8.5-10.1) mg/dL Magnesium (1.8-2.4) mg/dL Total Bilirubin (0.2-1.0) mg/dL Direct Bilirubin (0.0-0.2) mg/dL AST (15-37) U/L ALT (12-78) U/L Alkaline Phosphatase (46-116) U/L Total Protein (6.4-8.2) g/dL Albumin (3.4-5.0) g/dL Globulin (2.3-3.5) g/dL Albumin/Globulin Ratio (1.2-2.2) Amylase (25-115) U/L Lipase 1362 H (73-393) U/L Urine Color Urine Appearance Urine pH (4.5-8.0) Ur Specific Central (1.008-1.030) Urine Protein (NEGATIVE) mg/dL Urine Glucose (UA) (NEGATIVE) mg/dL Urine Ketones (NEGATIVE) mg/dL Urine Occult Blood (NEGATIVE) Urine Nitrite (NEGAITVE) Urine Bilirubin (NEGATIVE) Urine Urobilinogen (NORMAL) mg/dL Ur Leukocyte Esterase (NEGATIVE) Urine RBC (0-5) Urine WBC (0-5) Ur Epithelial Cells Amorphous Sediment Urine Bacteria Urine Mucus Urine Opiates Screen Negative (NEGATIVE) Ur Oxycodone Screen Negative (NEGATIVE) Urine Methadone Screen Negative (NEGATIVE) Ur Propoxyphene Screen Negative (NEGATIVE) Ur Barbiturates Screen Negative (NEGATIVE) Ur Tricyclics Screen Negative (NEGATIVE) Ur Phencyclidine Scrn Negative (NEGATIVE) Ur Amphetamine Screen Negative (NEGATIVE) U Methamphetamines Scrn Negative (NEGATIVE) Urine MDMA Screen Negative (NEGATIVE) U Benzodiazepines Scrn Negative (NEGATIVE) U Cocaine Metab Screen Negative (NEGATIVE) U Marijuana (THC) Screen Negative (NEGATIVE) Ethyl Alcohol mg/dL 04/10/18 04/10/18 Range/Units 04:45 04:45 WBC (4.5-11.0) K/uL RBC (4.30-5.90) M/uL Hgb (12.0-15.0) g/dL Hct (40.0-54.0) % MCV (80-98) fL MCH (27-31) pg MCHC (32-36) % Plt Count (150-400) K/uL Neut % (Auto) (36-66) % Lymph % (Auto) (24-44) % [place] % (Auto) (2-6) % Eos % (Auto) (2-4) % Baso % (Auto) (0-1) % PT 11.8 (9.5-12.0) sec INR 1.08 (0.80-1.20) Sodium 133 L (140-148) mmol/L Potassium 4.2 (3.6-5.2) mmol/L Chloride 98 L (100-108) mmol/L Carbon Dioxide 26 (21-32) mmol/L Anion Gap 13.2 (5.0-14.0) mmol/L BUN 4 L (7-18) mg/dL Creatinine 0.6 L (0.8-1.3) mg/dL Est Cr Clr Drug Dosing 186.32 mL/min Estimated GFR (MDRD) > 60 (>60) Glucose 91 (74-106) mg/dL Calcium 8.7 (8.5-10.1) mg/dL Magnesium 1.8 (1.8-2.4) mg/dL Total Bilirubin 8.3 H (0.2-1.0) mg/dL Direct Bilirubin 6.31 H (0.0-0.2) mg/dL AST 188 H (15-37) U/L ALT 67 (12-78) U/L Alkaline Phosphatase 296 H (46-116) U/L Total Protein 6.2 L (6.4-8.2) g/dL Albumin 2.4 L (3.4-5.0) g/dL Globulin 3.8 H (2.3-3.5) g/dL Albumin/Globulin Ratio 0.6 L (1.2-2.2) Amylase (25-115) U/L Lipase (73-393) U/L Urine Color Urine Appearance Urine pH (4.5-8.0) Ur Specific Central (1.008-1.030) Urine Protein (NEGATIVE) mg/dL Urine Glucose (UA) (NEGATIVE) mg/dL Urine Ketones (NEGATIVE) mg/dL Urine Occult Blood (NEGATIVE) Urine Nitrite (NEGAITVE) Urine Bilirubin (NEGATIVE) Urine Urobilinogen (NORMAL) mg/dL Ur Leukocyte Esterase (NEGATIVE) Urine RBC (0-5) Urine WBC (0-5) Ur Epithelial Cells Amorphous Sediment Urine Bacteria Urine Mucus Urine Opiates Screen (NEGATIVE) Ur Oxycodone Screen (NEGATIVE) Urine Methadone Screen (NEGATIVE) Ur Propoxyphene Screen (NEGATIVE) Ur Barbiturates Screen (NEGATIVE) Ur Tricyclics Screen (NEGATIVE) Ur Phencyclidine Scrn (NEGATIVE) Ur Amphetamine Screen (NEGATIVE) U Methamphetamines Scrn (NEGATIVE) Urine MDMA Screen (NEGATIVE) U Benzodiazepines Scrn (NEGATIVE) U Cocaine Metab Screen (NEGATIVE) U Marijuana (THC) Screen (NEGATIVE) Ethyl Alcohol mg/dL Med Orders - Current: Current Medications Duloxetine HCl (Cymbalta) 30 mg PO DAILY [facility] Last Admin: 04/10/18 08:25 Dose: 30 mg Folic Acid (Folic Acid) 1 mg PO DAILY [facility] Last Admin: 04/10/18 08:25 Dose: 1 mg Gabapentin (Neurontin) 400 mg PO Q8H [facility] Last Admin: 04/10/18 04:43 Dose: 400 mg Sodium Chloride (Normal Saline) 1,000 mls @ 125 mls/hr IV ASDIRECTED RUSS Last Admin: 04/10/18 04:48 Dose: 125 mls/hr Ibuprofen (Motrin) 400 mg PO Q6H PRN PRN Reason: Pain (mild 1-3) Last Admin: 04/10/18 08:27 Dose: 400 mg Lorazepam (Ativan) 0 mg IV ASDIRECTED [facility]; Protocol Lorazepam (Ativan) 0 mg PO ASDIRECTED RUSS; Protocol Last Admin: 04/10/18 05:58 Dose: 2 mg Ondansetron HCl (Zofran) 4 mg IV Q4H PRN PRN Reason: Nausea/Vomiting Pantoprazole Sodium (Protonix Iv) 40 mg IVPUSH Q24H [facility] Last Admin: 04/09/18 20:54 Dose: 40 mg Sodium Chloride (Saline Flush) 10 ml FLUSH ASDIRECTED PRN PRN Reason: Keep Vein Open Thiamine HCl (Vitamin B-1) 100 mg PO DAILY [facility] Last Admin: 04/10/18 08:25 Dose: 100 mg Topiramate (Topamax) 25 mg PO BID [facility] Last Admin: 04/10/18 08:25 Dose: 25 mg Discontinued Medications Sodium Chloride (Normal Saline) 1,000 mls @ 999 mls/hr IV ASDIRECTED [facility] Last Admin: 04/09/18 16:22 Dose: 999 mls/hr Potassium Chloride/Sodium Chloride (Normal Saline With 40 Meq Kcl) 1,000 mls @ 300 mls/hr IV ASDIRECTED [facility] Last Admin: 04/09/18 17:31 Dose: 300 mls/hr Sodium Chloride (Normal Saline) 70 mls @ 3 mls/sec IV ASDIRECTED [facility] Last Admin: 04/09/18 18:45 Dose: 3 mls/sec Multivitamins/Minerals 10 ml/Thiamine HCl 100 mg/ Folic Acid 1 mg/ Magnesium Sulfate 2 gm/ Sodium Chloride 1,015.2 mls @ 100 mls/hr IV ONETIME ONE Stop: 04/10/18 05:29 Last Admin: 04/09/18 21:10 Dose: 100 mls/hr Potassium Chloride 20 meq/Lidocaine HCl 2 ml/ Sodium Chloride 112 mls @ 50 mls/ hr IV Q2H [facility] Stop: 04/10/18 01:59 Last Admin: 04/10/18 01:01 Dose: 50 mls/hr Potassium Chloride (Kcl 20 Meq In Water 100 Ml) Confirm Administered Dose 100 mls @ as directed .ROUTE .STK-MED ONE Stop: 04/09/18 22:15 Last Admin: 04/09/18 22:25 Dose: Not Given Potassium Chloride (Kcl 20 Meq In Water 100 Ml) Confirm Administered Dose 100 mls @ as directed .ROUTE .STK-MED ONE Stop: 04/10/18 00:58 Last Admin: 04/10/18 03:27 Dose: Not Given Iopamidol (Isovue-300 (61%)) 96 ml IV . DIRECTED [facility] Last Admin: 04/09/18 18:45 Dose: 96 ml Lidocaine HCl (Xylocaine 1%) 1 ml .XX ONETIME ONE Stop: 04/09/18 22:01 Last Admin: 04/09/18 22:25 Dose: Not Given Lidocaine HCl (Xylocaine-Mpf 1%) 2 ml INJECT ONETIME ONE Stop: 04/09/18 22:12 Last Admin: 04/09/18 23:35 Dose: Not Given Potassium Chloride (Klor-Con M20) 40 meq PO ONETIME ONE Stop: 04/09/18 18:32 Last Admin: 04/09/18 20:53 Dose: 40 meq Sodium Chloride (Saline Flush) 10 ml FLUSH ONETIME ONE Stop: 04/09/18 17:28 Last Admin: 04/09/18 18:45 Dose: 10 ml - Exam General: Alert, Oriented, Cooperative, Mild Distress Lungs: Clear to Auscultation, Normal Respiratory Effort Cardiovascular: Regular Rate, Regular Rhythm, No Murmurs GI/Abdominal Exam: Soft, Non-Tender, No Organomegaly, No Distention Extremities: Non-Tender, No Pedal Edema Skin: Warm, Dry, Intact - Problem List Review Problem List Initiated/Reviewed/Updated: Yes - My Orders Last 24 Hours: My Active Orders 04/09/18 17:35 Resuscitation Status Routine 04/09/18 19:20 Patient Status [ADT] Routine Ambulate [RC] QID CIWAA Assessment [RC] Q1H Cardiac Monitoring [RC] Q6H Height and Weight [RC] DAILY Intake and Output [RC] QSHIFT Notify Provider Vital Signs [RC] ASDIRECTED Notify Provider [RC] PRN Oxygen Therapy [RC] PRN Peripheral IV Care [RC] Q12H Pulse Oximetry [RC] CONTINUOUS Up With Assistance [RC] ASDIRECTED Up to Chair [RC] QID VTE/DVT Education [RC] Per Unit Routine Vital Signs [RC] Q1H Ibuprofen [Motrin] 400 mg PO Q6H PRN LORazepam [Ativan] See Protocol IV ASDIRECTED LORazepam [Ativan] See Protocol PO ASDIRECTED Ondansetron [Zofran] 4 mg IV Q4H PRN Sodium Chloride 0.9% [Normal Saline] 1,000 ml IV ASDIRECTED Sodium Chloride 0.9% [Saline Flush] 10 ml FLUSH ASDIRECTED PRN Peripheral IV Insertion Adult [OM.PC] Routine Seizure Precautions [OM.PC] Routine Sequential Compression Device [OM.PC] Per Unit Routine 04/09/18 20:00 Gabapentin [Neurontin] 400 mg PO Q8H Pantoprazole [ProTONIX IV] 40 mg IVPUSH Q24H 04/09/18 21:00 Topiramate [Topamax] 25 mg PO BID 04/10/18 04:00 Accu Check [Blood Glucose Check, Bedside] [RC] QID 04/10/18 09:00 DULoxetine [Cymbalta] 30 mg PO DAILY Folic Acid 1 mg PO DAILY Thiamine [Vitamin B-1] 100 mg PO DAILY 04/10/18 Breakfast NPO Now [Nothing per Oral Now Diet] [DIET] 04/11/18 05:00 CBC WITH AUTO DIFF [HEME] Timed COMPREHENSIVE METABOLIC PN,CMP [CHEM] Timed INR,PT,PROTHROMBIN TIME [COAG] Timed MAGNESIUM [CHEM] Timed - Plan Plan:: ASSESSMENT AND PLAN SYNCOPAL EPISODE-likely secondary to dehydration and intravascular volume depletion. Symptoms of lightheadedness and syncopal episodes have occurred after standing from a lying position. -IV fluids for hydration -Hold lisinopril PANCREATITIS-secondary to alcohol use -Nothing by mouth -Follow-up lipase level in a.m. ELEVATED BILIRUBIN-further increase in bilirubin from admission -Stop all alcohol use -Repeat liver enzymes in a.m. LONG-STANDING ALCOHOL USE AND ABUSE-monitor closely for alcohol withdrawal -Alcohol withdrawal protocol -Gabapentin 400 mg by mouth every 8 hours 4 days, then 200 mg by mouth every 8 hours 4 days CHRONIC LOW BACK PAIN MAINTENANCE ISSUES -DVT prophylaxis; SCUDs -GI prophylaxis; Protonix -Preston catheter; not indicated -Nutrition; regular diet -Nicotine dependence; not required CODE STATUS-FULL CODE ADMISSION STATUS-patient will be admitted to inpatient status, expect at least a 2 night hospital stay for evaluation and management of problems as outlined above. At the time of this admission I do not reasonably expected evaluation and management of this problem will require more than a 96 hour hospital stay. DISPOSITION-anticipate discharge to home after the hospital stay. PRIMARY CARE PROVIDER-
[2018-04-10] MEDS: Sodium Chloride 0.9% 1,000 ML IV SCH (12:58)
[2018-04-10] MEDS: Pantoprazole 40 MG Vial IVPUSH SCH (19:31)
[2018-04-11] MEDS: Sodium Chloride 0.9% 1,000 ML IV SCH (02:29)
[2018-04-11] MEDS: LORazepam 1 MG Tab PO SCH ×11 (02:36→23:13)
[2018-04-11] MEDS: Gabapentin 400 MG Cap PO SCH ×3 (04:26→19:20)
[2018-04-11] MEDS: Thiamine 100 MG Tab PO SCH (08:29)
[2018-04-11] MEDS: Topiramate 25 MG Tab PO SCH ×2 (08:30→20:44)
[2018-04-11] MEDS: Folic Acid 1 MG Tab PO SCH (08:30)
[2018-04-11] MEDS: DULoxetine 30 MG Cap PO SCH (08:30)
[2018-04-11 09:18] LABS: HBSAG SCREEN Negative (Negative); HEP A AB, IGM Negative (Negative); HEP B CORE AB, IGM Negative (Negative); HEP C VIRUS AB <0.1 s/co ratio (0.0-0.9)
--- NOTE | 2018-04-11 09:42 | PCM.PN ---
- General Info Date of Service: 04/11/18 Subjective Update: Mr. Knowles is continue to experience withdrawal symptoms, reports that they're less severe than they usually are. Bilirubin is up to 11.1 and prothrombin time mildly elevated at 12.5. He denies significant abdominal pain, lipase level has improved from yesterday. Functional Status: Reports: Urinating - Review of Systems General: Reports: Weakness. Denies: Fever, Chills Pulmonary: Reports: No Symptoms Cardiovascular: Reports: No Symptoms Gastrointestinal: Reports: No Symptoms - Patient Data Vitals - Most Recent: Last Vital Signs Temp 96.3 F 04/11/18 03:00 Pulse 81 04/11/18 08:00 Resp 17 04/11/18 08:00 BP 124/96 H 04/11/18 08:00 Pulse Ox 99 04/11/18 08:00 Orthostatic Blood Pressure [ 97/60 Standing] Orthostatic Blood Pressure [ 115/80 Sitting] Orthostatic Blood Pressure [ 126/82 Supine] Weight - Most Recent: 168 lb 15.996 oz I&O - Last 24 Hours: Intake & Output 04/10/18 04/11/18 04/11/18 22:59 06:59 14:59 Intake Total 1459 901 Output Total 1150 875 575 Balance 309 26 -575 Lab Results Last 24 Hours: Laboratory Results - last 24 hr 04/09/18 04/11/18 04/11/18 Range/Units 17:53 04:32 04:32 WBC 3.7 L (4.5-11.0) K/uL RBC 2.94 L (4.30-5.90) M/uL Hgb 9.6 L (12.0-15.0) g/dL Hct 29.3 L (40.0-54.0) % MCV 100 H (80-98) fL MCH 33 H (27-31) pg MCHC 33 (32-36) % Plt Count 65 L (150-400) K/uL Neut % (Auto) 53 (36-66) % Lymph % (Auto) 37 (24-44) % Mcclain % (Auto) 8 H (2-6) % Eos % (Auto) 1 L (2-4) % Baso % (Auto) 1 (0-1) % PT 12.5 H (9.5-12.0) sec INR 1.15 (0.80-1.20) Sodium (140-148) mmol/L Potassium (3.6-5.2) mmol/L Chloride (100-108) mmol/L Carbon Dioxide (21-32) mmol/L Anion Gap (5.0-14.0) mmol/L BUN (7-18) mg/dL Creatinine (0.8-1.3) mg/dL Est Cr Clr Drug Dosing mL/min Estimated GFR (MDRD) (>60) Glucose (74-106) mg/dL Calcium (8.5-10.1) mg/dL Magnesium (1.8-2.4) mg/dL Total Bilirubin (0.2-1.0) mg/dL AST (15-37) U/L ALT (12-78) U/L Alkaline Phosphatase (46-116) U/L Total Protein (6.4-8.2) g/dL Albumin (3.4-5.0) g/dL Globulin (2.3-3.5) g/dL Albumin/Globulin Ratio (1.2-2.2) Lipase (73-393) U/L Hepatitis A IgM Ab Negative (Negative) Hep Bs Antigen Negative (Negative) Hep B Core IgM Ab Negative (Negative) Hepatitis C Antibody <0.1 (0.0-0.9) s/co ratio 04/11/ Range/Units 04:32 WBC (4.5-11.0) K/uL RBC (4.30-5.90) M/uL Hgb (12.0-15.0) g/dL Hct (40.0-54.0) % MCV (80-98) fL MCH (27-31) pg MCHC (32-36) % Plt Count (150-400) K/uL Neut % (Auto) (36-66) % Lymph % (Auto) (24-44) % Mcclain % (Auto) (2-6) % Eos % (Auto) (2-4) % Baso % (Auto) (0-1) % PT (9.5-12.0) sec INR (0.80-1.20) Sodium 131 L (140-148) mmol/L Potassium 4.1 (3.6-5.2) mmol/L Chloride 99 L (100-108) mmol/L Carbon Dioxide 23 (21-32) mmol/L Anion Gap 13.1 (5.0-14.0) mmol/L BUN 4 L (7-18) mg/dL Creatinine 0.5 L (0.8-1.3) mg/dL Est Cr Clr Drug Dosing 223.58 mL/min Estimated GFR (MDRD) > 60 (>60) Glucose 87 (74-106) mg/dL Calcium 9.1 (8.5-10.1) mg/dL Magnesium 1.4 L (1.8-2.4) mg/dL Total Bilirubin 11.1 H (0.2-1.0) mg/dL AST 124 H (15-37) U/L ALT 51 (12-78) U/L Alkaline Phosphatase 267 H (46-116) U/L Total Protein 5.9 L (6.4-8.2) g/dL Albumin 2.3 L (3.4-5.0) g/dL Globulin 3.6 H (2.3-3.5) g/dL Albumin/Globulin Ratio 0.6 L (1.2-2.2) Lipase 733 H (73-393) U/L Hepatitis A IgM Ab (Negative) Hep Bs Antigen (Negative) Hep B Core IgM Ab (Negative) Hepatitis C Antibody (0.0-0.9) s/co ratio Med Orders - Current: Current Medications Duloxetine HCl (Cymbalta) 30 mg PO DAILY [facility] Last Admin: 04/11/18 08:30 Dose: 30 mg Folic Acid (Folic Acid) 1 mg PO DAILY [facility] Last Admin: 04/11/18 08:30 Dose: 1 mg Gabapentin (Neurontin) 400 mg PO Q8H [facility] Last Admin: 04/11/18 04:26 Dose: 400 mg Magnesium Sulfate 2 gm/ Premix 50 mls @ 25 mls/hr IV Q6H [facility] Stop: 04/11/18 22:59 Ibuprofen (Motrin) 400 mg PO Q6H PRN PRN Reason: Pain (mild 1-3) Last Admin: 04/10/18 08:27 Dose: 400 mg Lorazepam (Ativan) 0 mg IV ASDIRECTED [facility]; Protocol Lorazepam (Ativan) 0 mg PO ASDIRECTED [facility]; Protocol Last Admin: 04/11/18 08:35 Dose: 1 mg Ondansetron HCl (Zofran) 4 mg IV Q4H PRN PRN Reason: Nausea/Vomiting Pantoprazole Sodium (Protonix) 40 mg PO DAILY [facility] Sodium Chloride (Saline Flush) 10 ml FLUSH ASDIRECTED PRN PRN Reason: Keep Vein Open Thiamine HCl (Vitamin B-1) 100 mg PO DAILY [facility] Last Admin: 04/11/18 08:29 Dose: 100 mg Topiramate (Topamax) 25 mg PO BID [facility] Last Admin: 04/11/18 08:30 Dose: 25 mg Discontinued Medications Sodium Chloride (Normal Saline) 1,000 mls @ 999 mls/hr IV ASDIRECTED [facility] Last Admin: 04/09/18 16:22 Dose: 999 mls/hr Potassium Chloride/Sodium Chloride (Normal Saline With 40 Meq Kcl) 1,000 mls @ 300 mls/hr IV ASDIRECTED [facility] Last Admin: 04/09/18 17:31 Dose: 300 mls/hr Sodium Chloride (Normal Saline) 70 mls @ 3 mls/sec IV ASDIRECTED [facility] Last Admin: 04/09/18 18:45 Dose: 3 mls/sec Multivitamins/Minerals 10 ml/Thiamine HCl 100 mg/ Folic Acid 1 mg/ Magnesium Sulfate 2 gm/ Sodium Chloride 1,015.2 mls @ 100 mls/hr IV ONETIME ONE Stop: 04/10/18 05:29 Last Admin: 04/09/18 21:10 Dose: 100 mls/hr Sodium Chloride (Normal Saline) 1,000 mls @ 125 mls/hr IV ASDIRECTED [facility] Last Admin: 04/10/18 04:48 Dose: 125 mls/hr Potassium Chloride 20 meq/Lidocaine HCl 2 ml/ Sodium Chloride 112 mls @ 50 mls/ hr IV Q2H [facility] Stop: 04/10/18 01:59 Last Admin: 04/10/18 01:01 Dose: 50 mls/hr Potassium Chloride (Kcl 20 Meq In Water 100 Ml) Confirm Administered Dose 100 mls @ as directed .ROUTE .STK-MED ONE Stop: 04/09/18 22:15 Last Admin: 04/09/18 22:25 Dose: Not Given Potassium Chloride (Kcl 20 Meq In Water 100 Ml) Confirm Administered Dose 100 mls @ as directed .ROUTE .STK-MED ONE Stop: 04/10/18 00:58 Last Admin: 04/10/18 03:27 Dose: Not Given Sodium Chloride (Normal Saline) 1,000 mls @ 75 mls/hr IV ASDIRECTED [facility] Last Admin: 04/11/18 02:29 Dose: 75 mls/hr Iopamidol (Isovue-300 (61%)) 96 ml IV . DIRECTED [facility] Last Admin: 04/09/18 18:45 Dose: 96 ml Lidocaine HCl (Xylocaine 1%) 1 ml .XX ONETIME ONE Stop: 04/09/18 22:01 Last Admin: 04/09/18 22:25 Dose: Not Given Lidocaine HCl (Xylocaine-Mpf 1%) 2 ml INJECT ONETIME ONE Stop: 04/09/18 22:12 Last Admin: 04/09/18 23:35 Dose: Not Given Pantoprazole Sodium (Protonix Iv) 40 mg IVPUSH Q24H [facility] Last Admin: 04/10/18 19:31 Dose: 40 mg Potassium Chloride (Klor-Con M20) 40 meq PO ONETIME ONE Stop: 04/09/18 18:32 Last Admin: 04/09/18 20:53 Dose: 40 meq Sodium Chloride (Saline Flush) 10 ml FLUSH ONETIME ONE Stop: 04/09/18 17:28 Last Admin: 04/09/18 18:45 Dose: 10 ml - Exam Quality Assessment: DVT Prophylaxis General: Alert, Oriented, Cooperative, Moderate Distress Lungs: Clear to Auscultation, Normal Respiratory Effort Cardiovascular: Regular Rate, Regular Rhythm, No Murmurs GI/Abdominal Exam: Soft, Non-Tender, No Organomegaly, No Distention Extremities: Non-Tender, No Pedal Edema Skin: Warm, Dry, Other (Jaundice) - Problem List Review Problem List Initiated/Reviewed/Updated: Yes - My Orders Last 24 Hours: My Active Orders 04/10/18 09:00 DULoxetine [Cymbalta] 30 mg PO DAILY Folic Acid 1 mg PO DAILY Thiamine [Vitamin B-1] 100 mg PO DAILY 04/10/18 10:23 Convert IV to Saline Lock [OM.PC] Routine 04/11/18 09:00 Magnesium Sulfate/Water [Magnesium Sulfate 2 GM in Water 50 ML] 2 gm Premix Bag 1 bag IV Q6H 04/11/18 09:36 Convert IV to Saline Lock [OM.PC] Routine 04/11/18 Breakfast Full Liquid Diet [DIET] 04/12/18 05:00 CBC WITH AUTO DIFF [HEME] Timed COMPREHENSIVE METABOLIC PN,CMP [CHEM] Timed INR,PT,PROTHROMBIN TIME [COAG] Timed LIPASE [CHEM] Timed MAGNESIUM [CHEM] Timed 04/12/18 09:00 Pantoprazole [ProTONIX] 40 mg PO DAILY - Plan Plan:: ASSESSMENT AND PLAN SYNCOPAL EPISODE-l lightheadedness has essentially resolved, no further syncopal episodes -Hold lisinopril PANCREATITIS-secondary to alcohol use, denies significant abdominal pain, lipase level improved but still elevated -Full liquid diet -Follow-up lipase level in a.m. ALCOHOLIC HEPATITIS-further increase in bilirubin from admission, now at 11.1. Likely also has some underlying cirrhosis. Calculated Maddrey Score is 13 -Stop all alcohol use -Repeat liver enzymes in a.m. LONG-STANDING ALCOHOL ABUSE-currently experiencing alcohol withdrawal, denies hallucinations -Alcohol withdrawal protocol -Gabapentin 400 mg by mouth every 8 hours 4 days, then 200 mg by mouth every 8 hours 4 days CHRONIC LOW BACK PAIN MAINTENANCE ISSUES -DVT prophylaxis; SCUDs -GI prophylaxis; Protonix -Preston catheter; not indicated -Nutrition; regular diet -Nicotine dependence; not required CODE STATUS-FULL CODE ADMISSION STATUS-patient will be admitted to inpatient status, expect at least a 2 night hospital stay for evaluation and management of problems as outlined above. At the time of this admission I do not reasonably expected evaluation and management of this problem will require more than a 96 hour hospital stay. DISPOSITION-anticipate discharge to home after the hospital stay. PRIMARY CARE PROVIDER-
[2018-04-11] MEDS: Magnesium Sulfate/Water 2 GM in Premix Bag 1 BAG IV SCH ×3 (09:57→20:43)
[2018-04-11] MEDS: Pantoprazole 40 MG Tab.CR PO SCH (16:34)
[2018-04-11] MEDS: LORazepam 2 MG/ML SDV IV SCH (19:58)
[2018-04-12] MEDS: LORazepam 2 MG/ML SDV IV SCH ×11 (00:13→23:19)
[2018-04-12] MEDS: Gabapentin 400 MG Cap PO SCH ×3 (04:34→19:50)
--- NOTE | 2018-04-12 09:40 | PCM.PN ---
- General Info Date of Service: 04/12/18 Subjective Update: Mr. Knowles has developed more active alcohol withdrawal with delirium and hallucinations. He is tolerating a full liquid diet and denies significant abdominal pain. Functional Status: Reports: Tolerating Diet, Urinating - Review of Systems General: Reports: Weakness. Denies: Fever, Chills Pulmonary: Reports: No Symptoms Cardiovascular: Reports: No Symptoms Gastrointestinal: Reports: No Symptoms Psychiatric: Reports: Confusion, Agitation - Patient Data Vitals - Most Recent: Last Vital Signs Temp 95.7 F 04/12/18 09:00 Pulse 86 04/12/18 09:00 Resp 16 04/12/18 09:00 BP 97/54 L 04/12/18 09:00 Pulse Ox 98 04/12/18 06:00 Orthostatic Blood Pressure [ 97/60 Standing] Orthostatic Blood Pressure [ 115/80 Sitting] Orthostatic Blood Pressure [ 126/82 Supine] Weight - Most Recent: 168 lb 15.996 oz I&O - Last 24 Hours: Intake & Output 04/11/18 04/12/18 04/12/18 22:59 06:59 14:59 Intake Total 1360 50 Output Total 800 650 Balance 560 -600 Lab Results Last 24 Hours: Laboratory Results - last 24 hr 04/12/18 04/12/18 04/12/18 Range/Units 05:00 05:00 05:00 WBC 4.5 (4.5-11.0) K/uL RBC 2.65 L (4.30-5.90) M/uL Hgb 8.9 L (12.0-15.0) g/dL Hct 26.3 L (40.0-54.0) % MCV 99 H (80-98) fL MCH 34 H (27-31) pg MCHC 34 (32-36) % Plt Count 123 L (150-400) K/uL Neut % (Auto) 53 (36-66) % Lymph % (Auto) 32 (24-44) % Lipscomb % (Auto) 13 H (2-6) % Eos % (Auto) 1 L (2-4) % Baso % (Auto) 1 (0-1) % PT 12.3 H (9.5-12.0) sec INR 1.13 (0.80-1.20) Sodium 131 L (140-148) mmol/L Potassium 3.8 (3.6-5.2) mmol/L Chloride 99 L (100-108) mmol/L Carbon Dioxide 24 (21-32) mmol/L Anion Gap 11.8 (5.0-14.0) mmol/L BUN 4 L (7-18) mg/dL Creatinine 0.6 L (0.8-1.3) mg/dL Est Cr Clr Drug Dosing 186.32 mL/min Estimated GFR (MDRD) > 60 (>60) Glucose 93 (74-106) mg/dL Calcium 9.2 (8.5-10.1) mg/dL Magnesium 1.8 (1.8-2.4) mg/dL Total Bilirubin 9.2 H (0.2-1.0) mg/dL AST 95 H (15-37) U/L ALT 52 (12-78) U/L Alkaline Phosphatase 247 H (46-116) U/L Total Protein 6.0 L (6.4-8.2) g/dL Albumin 2.4 L (3.4-5.0) g/dL Globulin 3.6 H (2.3-3.5) g/dL Albumin/Globulin Ratio 0.7 L (1.2-2.2) Lipase 695 H (73-393) U/L Med Orders - Current: Current Medications Duloxetine HCl (Cymbalta) 30 mg PO DAILY [facility] Last Admin: 04/11/18 08:30 Dose: 30 mg Folic Acid (Folic Acid) 1 mg PO DAILY [facility] Last Admin: 04/11/18 08:30 Dose: 1 mg Gabapentin (Neurontin) 400 mg PO Q8H [facility] Last Admin: 04/12/18 04:34 Dose: 400 mg Ibuprofen (Motrin) 400 mg PO Q6H PRN PRN Reason: Pain (mild 1-3) Last Admin: 04/10/18 08:27 Dose: 400 mg Lorazepam (Ativan) 0 mg IV ASDIRECTED [facility]; Protocol Last Admin: 04/12/18 02:19 Dose: 2 mg Lorazepam (Ativan) 0 mg PO ASDIRECTED [facility]; Protocol Last Admin: 04/11/18 23:13 Dose: 2 mg Ondansetron HCl (Zofran) 4 mg IV Q4H PRN PRN Reason: Nausea/Vomiting Pantoprazole Sodium (Protonix) 40 mg PO Q24H [facility] Last Admin: 04/11/18 16:34 Dose: 40 mg Sodium Chloride (Saline Flush) 10 ml FLUSH ASDIRECTED PRN PRN Reason: Keep Vein Open Thiamine HCl (Vitamin B-1) 100 mg PO DAILY [facility] Last Admin: 04/11/18 08:29 Dose: 100 mg Topiramate (Topamax) 25 mg PO BID [facility] Last Admin: 04/11/18 20:44 Dose: 25 mg Discontinued Medications Sodium Chloride (Normal Saline) 1,000 mls @ 999 mls/hr IV ASDIRECTED [facility] Last Admin: 04/09/18 16:22 Dose: 999 mls/hr Potassium Chloride/Sodium Chloride (Normal Saline With 40 Meq Kcl) 1,000 mls @ 300 mls/hr IV ASDIRECTED [facility] Last Admin: 04/09/18 17:31 Dose: 300 mls/hr Sodium Chloride (Normal Saline) 70 mls @ 3 mls/sec IV ASDIRECTED [facility] Last Admin: 04/09/18 18:45 Dose: 3 mls/sec Multivitamins/Minerals 10 ml/Thiamine HCl 100 mg/ Folic Acid 1 mg/ Magnesium Sulfate 2 gm/ Sodium Chloride 1,015.2 mls @ 100 mls/hr IV ONETIME ONE Stop: 04/10/18 05:29 Last Admin: 04/09/18 21:10 Dose: 100 mls/hr Sodium Chloride (Normal Saline) 1,000 mls @ 125 mls/hr IV ASDIRECTED [facility] Last Admin: 04/10/18 04:48 Dose: 125 mls/hr Potassium Chloride 20 meq/Lidocaine HCl 2 ml/ Sodium Chloride 112 mls @ 50 mls/ hr IV Q2H [facility] Stop: 04/10/18 01:59 Last Admin: 04/10/18 01:01 Dose: 50 mls/hr Potassium Chloride (Kcl 20 Meq In Water 100 Ml) Confirm Administered Dose 100 mls @ as directed .ROUTE .STK-MED ONE Stop: 04/09/18 22:15 Last Admin: 04/09/18 22:25 Dose: Not Given Potassium Chloride (Kcl 20 Meq In Water 100 Ml) Confirm Administered Dose 100 mls @ as directed .ROUTE .STK-MED ONE Stop: 04/10/18 00:58 Last Admin: 04/10/18 03:27 Dose: Not Given Sodium Chloride (Normal Saline) 1,000 mls @ 75 mls/hr IV ASDIRECTED [facility] Last Admin: 04/11/18 02:29 Dose: 75 mls/hr Magnesium Sulfate 2 gm/ Premix 50 mls @ 25 mls/hr IV Q6H [facility] Stop: 04/11/18 22:59 Last Admin: 04/11/18 20:43 Dose: 25 mls/hr Iopamidol (Isovue-300 (61%)) 96 ml IV . DIRECTED [facility] Last Admin: 04/09/18 18:45 Dose: 96 ml Lidocaine HCl (Xylocaine 1%) 1 ml .XX ONETIME ONE Stop: 04/09/18 22:01 Last Admin: 04/09/18 22:25 Dose: Not Given Lidocaine HCl (Xylocaine-Mpf 1%) 2 ml INJECT ONETIME ONE Stop: 04/09/18 22:12 Last Admin: 04/09/18 23:35 Dose: Not Given Pantoprazole Sodium (Protonix Iv) 40 mg IVPUSH Q24H [facility] Last Admin: 04/10/18 19:31 Dose: 40 mg Potassium Chloride (Klor-Con M20) 40 meq PO ONETIME ONE Stop: 04/09/18 18:32 Last Admin: 04/09/18 20:53 Dose: 40 meq Sodium Chloride (Saline Flush) 10 ml FLUSH ONETIME ONE Stop: 04/09/18 17:28 Last Admin: 04/09/18 18:45 Dose: 10 ml - Exam General: Alert, Oriented, Cooperative, Moderate Distress Lungs: Clear to Auscultation, Normal Respiratory Effort Cardiovascular: Regular Rate, Regular Rhythm, No Murmurs GI/Abdominal Exam: Soft, Non-Tender, No Organomegaly, No Distention Extremities: Non-Tender, No Pedal Edema - Problem List Review Problem List Initiated/Reviewed/Updated: Yes - My Orders Last 24 Hours: My Active Orders 04/11/18 09:36 Convert IV to Saline Lock [OM.PC] Routine 04/11/18 16:30 Pantoprazole [ProTONIX] 40 mg PO Q24H 04/12/18 Breakfast Regular Diet [DIET] 04/13/18 05:00 COMPREHENSIVE METABOLIC PN,CMP [CHEM] Timed INR,PT,PROTHROMBIN TIME [COAG] Timed LIPASE [CHEM] Timed - Plan Plan:: ASSESSMENT AND PLAN SYNCOPAL EPISODE-l lightheadedness has essentially resolved, no further syncopal episodes -Hold lisinopril PANCREATITIS-secondary to alcohol use, denies significant abdominal pain, lipase level improved but still elevated. He has tolerated a full liquid diet without significant increase in pain -Regular diet -Follow-up lipase level in a.m. ALCOHOLIC HEPATITIS-bilirubin has improved since yesterday now down to 9, PT stable -Stop all alcohol use -Repeat liver enzymes in a.m. LONG-STANDING ALCOHOL ABUSE-currently experiencing alcohol withdrawal with delirium, hallucinations, and mild agitation -Alcohol withdrawal protocol -Gabapentin 400 mg by mouth every 8 hours 4 days, then 200 mg by mouth every 8 hours 4 days CHRONIC LOW BACK PAIN MAINTENANCE ISSUES -DVT prophylaxis; SCUDs -GI prophylaxis; Protonix -Preston catheter; not indicated -Nutrition; regular diet -Nicotine dependence; not required CODE STATUS-FULL CODE ADMISSION STATUS-patient will be admitted to inpatient status, expect at least a 2 night hospital stay for evaluation and management of problems as outlined above. At the time of this admission I do not reasonably expected evaluation and management of this problem will require more than a 96 hour hospital stay. DISPOSITION-anticipate discharge to home after the hospital stay. PRIMARY CARE PROVIDER-
[2018-04-12] MEDS: LORazepam 1 MG Tab PO SCH ×2 (09:52→11:28)
[2018-04-12] MEDS: DULoxetine 30 MG Cap PO SCH (09:52)
[2018-04-12] MEDS: Thiamine 100 MG Tab PO SCH (09:52)
[2018-04-12] MEDS: Topiramate 25 MG Tab PO SCH ×2 (09:52→21:15)
[2018-04-12] MEDS: Folic Acid 1 MG Tab PO SCH (09:52)
[2018-04-12] MEDS: Pantoprazole 40 MG Tab.CR PO SCH ×2 (17:18→19:50)
[2018-04-13] MEDS: LORazepam 2 MG/ML SDV IV SCH ×6 (00:36→16:42)
[2018-04-13] MEDS: Gabapentin 400 MG Cap PO SCH (05:22)
[2018-04-13] MEDS: Topiramate 25 MG Tab PO SCH ×2 (08:23→21:07)
[2018-04-13] MEDS: Folic Acid 1 MG Tab PO SCH (08:23)
[2018-04-13] MEDS: DULoxetine 30 MG Cap PO SCH (08:23)
[2018-04-13] MEDS: Thiamine 100 MG Tab PO SCH (08:24)
--- NOTE | 2018-04-13 08:31 | LETTER ---
04/13/2018 Rehabilitation Therapy Technician RE: BRYAN HERNANDEZ : 1980 To Whom It May concern: Bryan Hernandez with a date of 1980, arrived at the hospital in a life-threatening situation. Bryan has been drinking very heavily and not particularly eating and maintaining nutrition. He has passed out at home multiple times and been found on the floor. He did pass out on April 09 and hit the back of his head. He was found by his parents on the floor and had to be helped up. Clinically, this patient looked malnourished and his blood pressure was quite low, pressures were down in the 70 range. He did look very jaundiced and looked like the beginning of some sort of liver failure. The patient by the time he arrived to the hospital was alert. He did have a head scan which did not show acute brain injury. The patient on laboratory findings was very jaundiced and had evidence of early liver failure. The patient was hydrated and admitted to the ICU and has been there since that time he was found to have pancreatitis and has been hydrated. He is going through withdrawal. This patient is not caring for himself and is definitely a threat to his life and in terms of his habits and his ability to maintain his health. At this point, I am highly recommending that he be committed for further withdrawal and treatment in a long- term way. This patient given the route that he has taken certainly will lose his life. If you need further information from me, I am certainly willing to answer phone calls and Dr. Hema Arevalo is caring for him, and I am sure could give further information. I did see this patient and cared for this patient in the emergency room. Thank you for your time. Sincerely, /[id number]
--- NOTE | 2018-04-13 09:38 | PCM.PN ---
- General Info Date of Service: 04/13/18 Subjective Update: Mr. Knowles has experienced significant delirium and agitation over the last 24 hours secondary to alcohol withdrawal. He is somewhat more calm this morning and interested in eating. Remains very tremulous. He is unable to provide meaningful information concerning symptoms or review of systems because of current withdrawal - Patient Data Vitals - Most Recent: Last Vital Signs Temp 95.4 F 04/13/18 08:00 Pulse 75 04/13/18 08:00 Resp 16 04/13/18 08:00 BP 101/72 04/13/18 08:00 Pulse Ox 100 04/13/18 08:00 Orthostatic Blood Pressure [ 97/60 Standing] Orthostatic Blood Pressure [ 115/80 Sitting] Orthostatic Blood Pressure [ 126/82 Supine] Weight - Most Recent: 163 lb 3.2 oz I&O - Last 24 Hours: Intake & Output 04/12/18 04/13/18 04/13/18 22:59 06:59 14:59 Intake Total 320 Balance 320 Lab Results Last 24 Hours: Laboratory Results - last 24 hr 04/13/18 04/13/18 Range/Units 05:35 05:35 PT 12.0 (9.5-12.0) sec INR 1.10 (0.80-1.20) Sodium 134 L (140-148) mmol/L Potassium 3.8 (3.6-5.2) mmol/L Chloride 100 (100-108) mmol/L Carbon Dioxide 25 (21-32) mmol/L Anion Gap 12.8 (5.0-14.0) mmol/L BUN 4 L (7-18) mg/dL Creatinine 0.7 L (0.8-1.3) mg/dL Est Cr Clr Drug Dosing 154.22 mL/min Estimated GFR (MDRD) > 60 (>60) Glucose 88 (74-106) mg/dL Calcium 9.5 (8.5-10.1) mg/dL Total Bilirubin 7.6 H (0.2-1.0) mg/dL AST 90 H (15-37) U/L ALT 59 (12-78) U/L Alkaline Phosphatase 270 H (46-116) U/L Total Protein 6.3 L (6.4-8.2) g/dL Albumin 2.5 L (3.4-5.0) g/dL Globulin 3.8 H (2.3-3.5) g/dL Albumin/Globulin Ratio 0.7 L (1.2-2.2) Lipase 406 H (73-393) U/L Med Orders - Current: Current Medications Duloxetine HCl (Cymbalta) 30 mg PO DAILY [facility] Last Admin: 04/13/18 08:23 Dose: 30 mg Folic Acid (Folic Acid) 1 mg PO DAILY [facility] Last Admin: 04/13/18 08:23 Dose: 1 mg Gabapentin (Neurontin) 400 mg PO Q8H [facility] Last Admin: 04/13/18 05:22 Dose: 400 mg Ibuprofen (Motrin) 400 mg PO Q6H PRN PRN Reason: Pain (mild 1-3) Last Admin: 04/10/18 08:27 Dose: 400 mg Lorazepam (Ativan) 0 mg IV ASDIRECTED [facility]; Protocol Last Admin: 04/13/18 08:19 Dose: 2 mg Lorazepam (Ativan) 0 mg PO ASDIRECTED [facility]; Protocol Last Admin: 04/12/18 11:28 Dose: 2 mg Ondansetron HCl (Zofran) 4 mg IV Q4H PRN PRN Reason: Nausea/Vomiting Pantoprazole Sodium (Protonix) 40 mg PO Q24H [facility] Last Admin: 04/12/18 19:50 Dose: 40 mg Sodium Chloride (Saline Flush) 10 ml FLUSH ASDIRECTED PRN PRN Reason: Keep Vein Open Thiamine HCl (Vitamin B-1) 100 mg PO DAILY [facility] Last Admin: 04/13/18 08:24 Dose: 100 mg Topiramate (Topamax) 25 mg PO BID [facility] Last Admin: 04/13/18 08:23 Dose: 25 mg Discontinued Medications Sodium Chloride (Normal Saline) 1,000 mls @ 999 mls/hr IV ASDIRECTED [facility] Last Admin: 04/09/18 16:22 Dose: 999 mls/hr Potassium Chloride/Sodium Chloride (Normal Saline With 40 Meq Kcl) 1,000 mls @ 300 mls/hr IV ASDIRECTED [facility] Last Admin: 04/09/18 17:31 Dose: 300 mls/hr Sodium Chloride (Normal Saline) 70 mls @ 3 mls/sec IV ASDIRECTED [facility] Last Admin: 04/09/18 18:45 Dose: 3 mls/sec Multivitamins/Minerals 10 ml/Thiamine HCl 100 mg/ Folic Acid 1 mg/ Magnesium Sulfate 2 gm/ Sodium Chloride 1,015.2 mls @ 100 mls/hr IV ONETIME ONE Stop: 04/10/18 05:29 Last Admin: 04/09/18 21:10 Dose: 100 mls/hr Sodium Chloride (Normal Saline) 1,000 mls @ 125 mls/hr IV ASDIRECTED [facility] Last Admin: 04/10/18 04:48 Dose: 125 mls/hr Potassium Chloride 20 meq/Lidocaine HCl 2 ml/ Sodium Chloride 112 mls @ 50 mls/ hr IV Q2H [facility] Stop: 04/10/18 01:59 Last Admin: 04/10/18 01:01 Dose: 50 mls/hr Potassium Chloride (Kcl 20 Meq In Water 100 Ml) Confirm Administered Dose 100 mls @ as directed .ROUTE .STK-MED ONE Stop: 04/09/18 22:15 Last Admin: 04/09/18 22:25 Dose: Not Given Potassium Chloride (Kcl 20 Meq In Water 100 Ml) Confirm Administered Dose 100 mls @ as directed .ROUTE .STK-MED ONE Stop: 04/10/18 00:58 Last Admin: 04/10/18 03:27 Dose: Not Given Sodium Chloride (Normal Saline) 1,000 mls @ 75 mls/hr IV ASDIRECTED [facility] Last Admin: 04/11/18 02:29 Dose: 75 mls/hr Magnesium Sulfate 2 gm/ Premix 50 mls @ 25 mls/hr IV Q6H [facility] Stop: 04/11/18 22:59 Last Admin: 04/11/18 20:43 Dose: 25 mls/hr Iopamidol (Isovue-300 (61%)) 96 ml IV . DIRECTED [facility] Last Admin: 04/09/18 18:45 Dose: 96 ml Lidocaine HCl (Xylocaine 1%) 1 ml .XX ONETIME ONE Stop: 04/09/18 22:01 Last Admin: 04/09/18 22:25 Dose: Not Given Lidocaine HCl (Xylocaine-Mpf 1%) 2 ml INJECT ONETIME ONE Stop: 04/09/18 22:12 Last Admin: 04/09/18 23:35 Dose: Not Given Pantoprazole Sodium (Protonix Iv) 40 mg IVPUSH Q24H [facility] Last Admin: 04/10/18 19:31 Dose: 40 mg Potassium Chloride (Klor-Con M20) 40 meq PO ONETIME ONE Stop: 04/09/18 18:32 Last Admin: 04/09/18 20:53 Dose: 40 meq Sodium Chloride (Saline Flush) 10 ml FLUSH ONETIME ONE Stop: 04/09/18 17:28 Last Admin: 04/09/18 18:45 Dose: 10 ml - Exam Quality Assessment: DVT Prophylaxis General: Sedated, Lethargic Lungs: Clear to Auscultation, Normal Respiratory Effort Cardiovascular: Regular Rate, Regular Rhythm, No Murmurs GI/Abdominal Exam: Soft, Non-Tender, No Organomegaly, No Distention Extremities: Non-Tender, No Pedal Edema - Problem List Review Problem List Initiated/Reviewed/Updated: Yes - My Orders Last 24 Hours: My Active Orders 04/12/18 22:41 Communication Order [RC] ASDIRECTED 04/12/18 22:53 Restraint/S VIOL/SD Initiate 18 - Older [OM.PC] Stat 04/14/18 05:00 COMPREHENSIVE METABOLIC PN,CMP [CHEM] Timed INR,PT,PROTHROMBIN TIME [COAG] Timed LIPASE [CHEM] Timed MAGNESIUM [CHEM] Timed - Plan Plan:: ASSESSMENT AND PLAN SYNCOPAL EPISODE-l lightheadedness has essentially resolved, no further syncopal episodes -Hold lisinopril PANCREATITIS-secondary to alcohol use, denies significant abdominal pain, lipase level improved but still slightly elevated. He has tolerated a full liquid diet without significant increase in pain -Regular diet -Follow-up lipase level in a.m. ALCOHOLIC HEPATITIS-bilirubin has improved since yesterday now down to 7.6, PT stable -Stop all alcohol use slightly -Repeat liver enzymes and INR in a.m. LONG-STANDING ALCOHOL ABUSE-currently experiencing alcohol withdrawal with delirium, hallucinations, and more severe agitation over the past 24 hours -Alcohol withdrawal protocol -Gabapentin 400 mg by mouth every 8 hours 4 days, then 200 mg by mouth every 8 hours 4 days CHRONIC LOW BACK PAIN MAINTENANCE ISSUES -DVT prophylaxis; SCUDs -GI prophylaxis; Protonix -Preston catheter; not indicated -Nutrition; regular diet -Nicotine dependence; not required CODE STATUS-FULL CODE ADMISSION STATUS-patient will be admitted to inpatient status, expect at least a 2 night hospital stay for evaluation and management of problems as outlined above. At the time of this admission I do not reasonably expected evaluation and management of this problem will require more than a 96 hour hospital stay. DISPOSITION-anticipate discharge to home after the hospital stay. PRIMARY CARE PROVIDER-
[2018-04-13] MEDS: Gabapentin 100 MG Cap PO SCH ×2 (11:58→21:07)
[2018-04-13] MEDS: LORazepam 1 MG Tab PO SCH (13:36)
[2018-04-13] MEDS: Sodium Chloride 0.9% 10 ML Syringe FLUSH PRN ×2 (15:33→16:47)
[2018-04-13] MEDS: Pantoprazole 40 MG Tab.CR PO SCH (16:42)
[2018-04-14] MEDS: LORazepam 2 MG/ML SDV IV SCH ×5 (02:08→21:37)
[2018-04-14] MEDS: Gabapentin 100 MG Cap PO SCH ×3 (05:23→20:14)
[2018-04-14] MEDS: LORazepam 1 MG Tab PO SCH ×2 (07:28→12:50)
[2018-04-14] MEDS: Magnesium Sulfate/Water 2 GM in Premix Bag 1 BAG IV SCH ×3 (09:06→21:37)
[2018-04-14] MEDS: Thiamine 100 MG Tab PO SCH (09:08)
[2018-04-14] MEDS: Folic Acid 1 MG Tab PO SCH (09:09)
[2018-04-14] MEDS: Topiramate 25 MG Tab PO SCH ×2 (09:09→20:15)
[2018-04-14] MEDS: DULoxetine 30 MG Cap PO SCH (09:09)
--- NOTE | 2018-04-14 10:00 | PCM.PN ---
- General Info Date of Service: 04/14/18 Subjective Update: Mr. Knowles has been less agitated over the last 24 hours, remains fairly sedated and confused. Unable to provide meaningful information concerning symptoms or review of systems. - Patient Data Vitals - Most Recent: Last Vital Signs Temp 96.1 F 04/14/18 07:25 Pulse 81 04/14/18 09:00 Resp 10 L 04/14/18 09:00 BP 105/81 04/14/18 09:00 Pulse Ox 99 04/14/18 09:00 Orthostatic Blood Pressure [ 97/60 Standing] Orthostatic Blood Pressure [ 115/80 Sitting] Orthostatic Blood Pressure [ 126/82 Supine] Weight - Most Recent: 157 lb I&O - Last 24 Hours: Intake & Output 04/13/18 04/14/18 04/14/18 22:59 06:59 14:59 Intake Total 290 Balance 290 Lab Results Last 24 Hours: Laboratory Results - last 24 hr 04/14/18 04/14/18 Range/Units 05:00 05:00 PT 11.6 (9.5-12.0) sec INR 1.06 (0.80-1.20) Sodium 135 L (140-148) mmol/L Potassium 3.6 (3.6-5.2) mmol/L Chloride 101 (100-108) mmol/L Carbon Dioxide 24 (21-32) mmol/L Anion Gap 13.6 (5.0-14.0) mmol/L BUN 8 D (7-18) mg/dL Creatinine 0.7 L (0.8-1.3) mg/dL Est Cr Clr Drug Dosing 147.29 mL/min Estimated GFR (MDRD) > 60 (>60) Glucose 92 (74-106) mg/dL Calcium 9.0 (8.5-10.1) mg/dL Magnesium 1.5 L (1.8-2.4) mg/dL Total Bilirubin 6.5 H (0.2-1.0) mg/dL AST 78 H (15-37) U/L ALT 58 (12-78) U/L Alkaline Phosphatase 247 H (46-116) U/L Total Protein 5.9 L (6.4-8.2) g/dL Albumin 2.2 L (3.4-5.0) g/dL Globulin 3.7 H (2.3-3.5) g/dL Albumin/Globulin Ratio 0.6 L (1.2-2.2) Lipase 376 (73-393) U/L Med Orders - Current: Current Medications Duloxetine HCl (Cymbalta) 30 mg PO DAILY [facility] Last Admin: 04/14/18 09:09 Dose: 30 mg Folic Acid (Folic Acid) 1 mg PO DAILY [facility] Last Admin: 04/14/18 09:09 Dose: 1 mg Gabapentin (Neurontin) 200 mg PO Q8H [facility] Last Admin: 04/14/18 05:23 Dose: 200 mg Magnesium Sulfate 2 gm/ Premix 50 mls @ 25 mls/hr IV Q6H [facility] Stop: 04/14/18 23:59 Last Admin: 04/14/18 09:06 Dose: 25 mls/hr Ibuprofen (Motrin) 400 mg PO Q6H PRN PRN Reason: Pain (mild 1-3) Last Admin: 04/10/18 08:27 Dose: 400 mg Lorazepam (Ativan) 0 mg IV ASDIRECTED [facility]; Protocol Last Admin: 04/14/18 04:49 Dose: 2 mg Lorazepam (Ativan) 0 mg PO ASDIRECTED [facility]; Protocol Last Admin: 04/14/18 07:28 Dose: 1 mg Ondansetron HCl (Zofran) 4 mg IV Q4H PRN PRN Reason: Nausea/Vomiting Pantoprazole Sodium (Protonix) 40 mg PO Q24H [facility] Last Admin: 04/13/18 16:42 Dose: 40 mg Sodium Chloride (Saline Flush) 10 ml FLUSH ASDIRECTED PRN PRN Reason: Keep Vein Open Last Admin: 04/13/18 16:47 Dose: 10 ml Thiamine HCl (Vitamin B-1) 100 mg PO DAILY [facility] Last Admin: 04/14/18 09:08 Dose: 100 mg Topiramate (Topamax) 25 mg PO BID [facility] Last Admin: 04/14/18 09:09 Dose: 25 mg Discontinued Medications Gabapentin (Neurontin) 400 mg PO Q8H [facility] Last Admin: 04/13/18 05:22 Dose: 400 mg Sodium Chloride (Normal Saline) 1,000 mls @ 999 mls/hr IV ASDIRECTED [facility] Last Admin: 04/09/18 16:22 Dose: 999 mls/hr Potassium Chloride/Sodium Chloride (Normal Saline With 40 Meq Kcl) 1,000 mls @ 300 mls/hr IV ASDIRECTED [facility] Last Admin: 04/09/18 17:31 Dose: 300 mls/hr Sodium Chloride (Normal Saline) 70 mls @ 3 mls/sec IV ASDIRECTED [facility] Last Admin: 04/09/18 18:45 Dose: 3 mls/sec Multivitamins/Minerals 10 ml/Thiamine HCl 100 mg/ Folic Acid 1 mg/ Magnesium Sulfate 2 gm/ Sodium Chloride 1,015.2 mls @ 100 mls/hr IV ONETIME ONE Stop: 04/10/18 05:29 Last Admin: 04/09/18 21:10 Dose: 100 mls/hr Sodium Chloride (Normal Saline) 1,000 mls @ 125 mls/hr IV ASDIRECTED [facility] Last Admin: 04/10/18 04:48 Dose: 125 mls/hr Potassium Chloride 20 meq/Lidocaine HCl 2 ml/ Sodium Chloride 112 mls @ 50 mls/ hr IV Q2H [facility] Stop: 04/10/18 01:59 Last Admin: 04/10/18 01:01 Dose: 50 mls/hr Potassium Chloride (Kcl 20 Meq In Water 100 Ml) Confirm Administered Dose 100 mls @ as directed .ROUTE .STK-MED ONE Stop: 04/09/18 22:15 Last Admin: 04/09/18 22:25 Dose: Not Given Potassium Chloride (Kcl 20 Meq In Water 100 Ml) Confirm Administered Dose 100 mls @ as directed .ROUTE .STK-MED ONE Stop: 04/10/18 00:58 Last Admin: 04/10/18 03:27 Dose: Not Given Sodium Chloride (Normal Saline) 1,000 mls @ 75 mls/hr IV ASDIRECTED [facility] Last Admin: 04/11/18 02:29 Dose: 75 mls/hr Magnesium Sulfate 2 gm/ Premix 50 mls @ 25 mls/hr IV Q6H [facility] Stop: 04/11/18 22:59 Last Admin: 04/11/18 20:43 Dose: 25 mls/hr Iopamidol (Isovue-300 (61%)) 96 ml IV . DIRECTED [facility] Last Admin: 04/09/18 18:45 Dose: 96 ml Lidocaine HCl (Xylocaine 1%) 1 ml .XX ONETIME ONE Stop: 04/09/18 22:01 Last Admin: 04/09/18 22:25 Dose: Not Given Lidocaine HCl (Xylocaine-Mpf 1%) 2 ml INJECT ONETIME ONE Stop: 04/09/18 22:12 Last Admin: 04/09/18 23:35 Dose: Not Given Pantoprazole Sodium (Protonix Iv) 40 mg IVPUSH Q24H [facility] Last Admin: 04/10/18 19:31 Dose: 40 mg Potassium Chloride (Klor-Con M20) 40 meq PO ONETIME ONE Stop: 04/09/18 18:32 Last Admin: 04/09/18 20:53 Dose: 40 meq Sodium Chloride (Saline Flush) 10 ml FLUSH ONETIME ONE Stop: 04/09/18 17:28 Last Admin: 04/09/18 18:45 Dose: 10 ml - Exam Quality Assessment: DVT Prophylaxis General: Sedated, Lethargic Lungs: Clear to Auscultation, Normal Respiratory Effort Cardiovascular: Regular Rate, Regular Rhythm, No Murmurs GI/Abdominal Exam: Soft, Non-Tender, No Organomegaly, No Distention Extremities: Non-Tender, No Pedal Edema - Problem List Review Problem List Initiated/Reviewed/Updated: Yes - My Orders Last 24 Hours: My Active Orders 04/13/18 12:00 Gabapentin [Neurontin] 200 mg PO Q8H 04/14/18 10:00 Magnesium Sulfate/Water [Magnesium Sulfate 2 GM in Water 50 ML] 2 gm Premix Bag 1 bag IV Q6H 04/15/18 05:00 COMPREHENSIVE METABOLIC PN,CMP [CHEM] Timed MAGNESIUM [CHEM] Timed - Plan Plan:: ASSESSMENT AND PLAN SYNCOPAL EPISODE-l lightheadedness has essentially resolved, no further syncopal episodes -Hold lisinopril PANCREATITIS-secondary to alcohol use, denies significant abdominal pain, lipase level improved but still slightly elevated. He has tolerated a full liquid diet without significant increase in pain -Regular diet -Follow-up lipase level in a.m. ALCOHOLIC HEPATITIS-bilirubin has improved since yesterday now down to 6.5, PT normal -Stop all alcohol use -Repeat liver enzymes in am LONG-STANDING ALCOHOL ABUSE-currently experiencing alcohol withdrawal with delirium, hallucinations, and more severe agitation over the past 24 hours -Alcohol withdrawal protocol -Gabapentin 200 mg by mouth every 8 hours 4 days CHRONIC LOW BACK PAIN MAINTENANCE ISSUES -DVT prophylaxis; SCUDs -GI prophylaxis; Protonix -Preston catheter; not indicated -Nutrition; regular diet -Nicotine dependence; not required CODE STATUS-FULL CODE ADMISSION STATUS-patient will be admitted to inpatient status, expect at least a 2 night hospital stay for evaluation and management of problems as outlined above. At the time of this admission I do not reasonably expected evaluation and management of this problem will require more than a 96 hour hospital stay. DISPOSITION-anticipate discharge to home after the hospital stay. PRIMARY CARE PROVIDER-
[2018-04-14] MEDS: Pantoprazole 40 MG Tab.CR PO SCH (20:14)
[2018-04-15] MEDS: Gabapentin 100 MG Cap PO SCH ×3 (06:29→21:33)
[2018-04-15] MEDS: LORazepam 2 MG/ML SDV IV SCH ×3 (06:30→15:58)
[2018-04-15] MEDS ORDERED: Potassium Chloride 20 MEQ Tab.ER PO ONE (09:30)
--- NOTE | 2018-04-15 09:43 | PCM.PN ---
- General Info Date of Service: 04/15/18 Subjective Update: Mr. Knowles continues to experience alcohol withdrawal with delirium and agitation, requiring ongoing use of lorazepam. He is presently sedated and confused, unable to provide meaningful history concerning symptoms or review of systems. - Patient Data Vitals - Most Recent: Last Vital Signs Temp 97.8 F 04/15/18 08:00 Pulse 82 04/15/18 09:00 Resp 12 04/15/18 09:00 BP 107/68 04/15/18 09:00 Pulse Ox 99 04/15/18 09:00 Orthostatic Blood Pressure [ 97/60 Standing] Orthostatic Blood Pressure [ 115/80 Sitting] Orthostatic Blood Pressure [ 126/82 Supine] Weight - Most Recent: 156 lb 14.4 oz I&O - Last 24 Hours: Intake & Output 04/14/18 04/15/18 04/15/18 21:59 06:59 14:59 Intake Total 200 Output Total Balance 200 Lab Results Last 24 Hours: Laboratory Results - last 24 hr 04/15/18 Range/Units 05:00 Sodium 136 L (140-148) mmol/L Potassium 3.4 L (3.6-5.2) mmol/L Chloride 101 (100-108) mmol/L Carbon Dioxide 23 (21-32) mmol/L Anion Gap 15.4 H (5.0-14.0) mmol/L BUN 8 (7-18) mg/dL Creatinine 0.8 (0.8-1.3) mg/dL Est Cr Clr Drug Dosing 128.88 mL/min Estimated GFR (MDRD) > 60 (>60) Glucose 91 (74-106) mg/dL Calcium 8.9 (8.5-10.1) mg/dL Magnesium 2.1 (1.8-2.4) mg/dL Total Bilirubin 7.0 H (0.2-1.0) mg/dL AST 86 H (15-37) U/L ALT 65 (12-78) U/L Alkaline Phosphatase 258 H (46-116) U/L Total Protein 6.1 L (6.4-8.2) g/dL Albumin 2.3 L (3.4-5.0) g/dL Globulin 3.8 H (2.3-3.5) g/dL Albumin/Globulin Ratio 0.6 L (1.2-2.2) Med Orders - Current: Current Medications Duloxetine HCl (Cymbalta) 30 mg PO DAILY [facility] Last Admin: 04/14/18 09:09 Dose: 30 mg Folic Acid (Folic Acid) 1 mg PO DAILY [facility] Last Admin: 04/14/18 09:09 Dose: 1 mg Gabapentin (Neurontin) 200 mg PO Q8H [facility] Ibuprofen (Motrin) 400 mg PO Q6H PRN PRN Reason: Pain (mild 1-3) Last Admin: 04/10/18 08:27 Dose: 400 mg Lorazepam (Ativan) 0 mg IV ASDIRECTED [facility]; Protocol Last Admin: 04/15/18 08:04 Dose: 2 mg Lorazepam (Ativan) 0 mg PO ASDIRECTED [facility]; Protocol Last Admin: 04/14/18 12:50 Dose: 1 mg Ondansetron HCl (Zofran) 4 mg IV Q4H PRN PRN Reason: Nausea/Vomiting Pantoprazole Sodium (Protonix) 40 mg PO DAILY@0730 [facility] Sodium Chloride (Saline Flush) 10 ml FLUSH ASDIRECTED PRN PRN Reason: Keep Vein Open Last Admin: 04/13/18 16:47 Dose: 10 ml Thiamine HCl (Vitamin B-1) 100 mg PO DAILY [facility] Last Admin: 04/14/18 09:08 Dose: 100 mg Topiramate (Topamax) 25 mg PO BID [facility] Last Admin: 04/14/18 20:15 Dose: 25 mg Discontinued Medications Gabapentin (Neurontin) 400 mg PO Q8H [facility] Last Admin: 04/13/18 05:22 Dose: 400 mg Gabapentin (Neurontin) 200 mg PO Q8H [facility] Last Admin: 04/15/18 06:29 Dose: 200 mg Sodium Chloride (Normal Saline) 1,000 mls @ 999 mls/hr IV ASDIRECTED [facility] Last Admin: 04/09/18 16:22 Dose: 999 mls/hr Potassium Chloride/Sodium Chloride (Normal Saline With 40 Meq Kcl) 1,000 mls @ 300 mls/hr IV ASDIRECTED [facility] Last Admin: 04/09/18 17:31 Dose: 300 mls/hr Sodium Chloride (Normal Saline) 70 mls @ 3 mls/sec IV ASDIRECTED [facility] Last Admin: 04/09/18 18:45 Dose: 3 mls/sec Multivitamins/Minerals 10 ml/Thiamine HCl 100 mg/ Folic Acid 1 mg/ Magnesium Sulfate 2 gm/ Sodium Chloride 1,015.2 mls @ 100 mls/hr IV ONETIME ONE Stop: 04/10/18 05:29 Last Admin: 04/09/18 21:10 Dose: 100 mls/hr Sodium Chloride (Normal Saline) 1,000 mls @ 125 mls/hr IV ASDIRECTED [facility] Last Admin: 04/10/18 04:48 Dose: 125 mls/hr Potassium Chloride 20 meq/Lidocaine HCl 2 ml/ Sodium Chloride 112 mls @ 50 mls/ hr IV Q2H [facility] Stop: 04/10/18 01:59 Last Admin: 04/10/18 01:01 Dose: 50 mls/hr Potassium Chloride (Kcl 20 Meq In Water 100 Ml) Confirm Administered Dose 100 mls @ as directed .ROUTE .STK-MED ONE Stop: 04/09/18 22:15 Last Admin: 04/09/18 22:25 Dose: Not Given Potassium Chloride (Kcl 20 Meq In Water 100 Ml) Confirm Administered Dose 100 mls @ as directed .ROUTE .STK-[facility] ONE Stop: 04/10/18 00:58 Last Admin: 04/10/18 03:27 Dose: Not Given Sodium Chloride (Normal Saline) 1,000 mls @ [facility] Admin: 04/11/18 02:29 Dose: 75 mls/hr Magnesium Sulfate 2 gm/ Premix 50 mls @ 25 mls/hr IV Q6H [facility] Stop: 04/11/18 22:59 Last Admin: 04/11/18 20:43 Dose: 25 mls/hr Magnesium Sulfate 2 gm/ Premix 50 mls @ 25 mls/hr IV Q6H [facility] Stop: 04/14/18 23:59 Last Admin: 04/14/18 21:37 Dose: 25 mls/hr Iopamidol (Isovue-300 (61%)) 96 ml IV . DIRECTED [facility] Last Admin: 04/09/18 18:45 Dose: 96 ml Lidocaine HCl (Xylocaine 1%) 1 ml .XX ONETIME ONE Stop: 04/09/18 22:01 Last Admin: 04/09/18 22:25 Dose: Not Given Lidocaine HCl (Xylocaine-Mpf 1%) 2 ml INJECT ONETIME ONE Stop: 04/09/18 22:12 Last Admin: 04/09/18 23:35 Dose: Not Given Pantoprazole Sodium (Protonix Iv) 40 mg IVPUSH Q24H [facility] Last Admin: 04/10/18 19:31 Dose: 40 mg Pantoprazole Sodium (Protonix) 40 mg PO Q24H [facility] Last Admin: 04/14/18 20:14 Dose: 40 mg Potassium Chloride (Klor-Con M20) 40 meq PO ONETIME ONE Stop: 04/09/18 18:32 Last Admin: 04/09/18 20:53 Dose: 40 meq Potassium Chloride (Klor-Con M20) 40 meq PO ONETIME ONE Stop: 04/15/18 09:31 Sodium Chloride (Saline Flush) 10 ml FLUSH ONETIME ONE Stop: 04/09/18 17:28 Last Admin: 04/09/18 18:45 Dose: 10 ml - Exam General: Sedated, Lethargic Lungs: Clear to Auscultation, Normal Respiratory Effort Cardiovascular: Regular Rate, Regular Rhythm, No Murmurs GI/Abdominal Exam: Soft, Non-Tender, No Organomegaly, No Distention - Problem List Review Problem List Initiated/Reviewed/Updated: Yes - My Orders Last 24 Hours: My Active Orders 04/15/18 08:30 Pantoprazole [ProTONIX] 40 mg PO DAILY@0730 04/15/18 14:00 Gabapentin [Neurontin] 200 mg PO Q8H 04/16/18 05:00 COMPREHENSIVE METABOLIC PN,CMP [CHEM] Timed - Plan Plan:: ASSESSMENT AND PLAN SYNCOPAL EPISODE- lightheadedness has essentially resolved, no further syncopal episodes -Hold lisinopril PANCREATITIS-resolved -Regular diet -Follow-up lipase level in a.m. ALCOHOLIC HEPATITIS-bilirubin stable at 7.0 -Stop all alcohol use -Repeat liver enzymes in am ALCOHOL WITHDRAWAL-currently experiencing alcohol withdrawal with delirium, hallucinations, and agitation -Alcohol withdrawal protocol -Gabapentin 200 mg by mouth every 8 hours 4 days CHRONIC LOW BACK PAIN MAINTENANCE ISSUES -DVT prophylaxis; SCUDs -GI prophylaxis; Protonix -Preston catheter; not indicated -Nutrition; regular diet -Nicotine dependence; not required CODE STATUS-FULL CODE ADMISSION STATUS-patient will be admitted to inpatient status, expect at least a 2 night hospital stay for evaluation and management of problems as outlined above. Patient has developed severe call withdrawal with hallucinations, delirium, and agitation, requiring a more prolonged hospital stay than originally anticipated. DISPOSITION-anticipate discharge to home after the hospital stay. PRIMARY CARE PROVIDER-
[2018-04-15] MEDS: Pantoprazole 40 MG Tab.CR PO SCH (14:49)
[2018-04-15] MEDS: Topiramate 25 MG Tab PO SCH ×2 (14:49→21:32)
[2018-04-15] MEDS: DULoxetine 30 MG Cap PO SCH (14:49)
[2018-04-15] MEDS: Thiamine 100 MG Tab PO SCH (14:50)
[2018-04-15] MEDS: Folic Acid 1 MG Tab PO SCH (14:50)
[2018-04-15] MEDS: LORazepam 1 MG Tab PO SCH (21:36)
[2018-04-16] MEDS: LORazepam 2 MG/ML SDV IV SCH ×2 (00:51→15:36)
[2018-04-16] MEDS: Gabapentin 100 MG Cap PO SCH ×3 (05:31→21:35)
--- NOTE | 2018-04-16 09:12 | PCM.PN ---
- General Info Date of Service: 04/16/18 Subjective Update: there were no acute events reported overnight. Patient is very sleepy this morning and participates very little in the conversation. He received lorazepam twice yesterday and has not had any lorazepam in about 10 hours. blood pressures have been on the low side of normal. He has not had any fevers. bilirubin slightly better today but remains elevated at greater than 6. - Review of Systems General: Denies: Fever - Patient Data Vitals - Most Recent: Last Vital Signs Temp 36.2 C 04/16/18 07:24 Pulse 69 04/16/18 07:24 Resp 17 04/16/18 07:24 BP 97/66 04/16/18 07:24 Pulse Ox 98 04/16/18 07:24 Orthostatic Blood Pressure [ 97/60 Standing] Orthostatic Blood Pressure [ 115/80 Sitting] Orthostatic Blood Pressure [ 126/82 Supine] Weight - Most Recent: 72.665 kg I&O - Last 24 Hours: Intake & Output 04/15/18 04/16/18 04/16/18 22:59 06:59 14:59 Intake Total 500 120 Balance 500 120 Lab Results Last 24 Hours: Laboratory Results - last 24 hr 04/16/18 Range/Units 05:00 Sodium 136 L (140-148) mmol/L Potassium 4.6 (3.6-5.2) mmol/L Chloride 103 (100-108) mmol/L Carbon Dioxide 23 (21-32) mmol/L Anion Gap 14.6 H (5.0-14.0) mmol/L BUN 8 (7-18) mg/dL Creatinine 0.6 L (0.8-1.3) mg/dL Est Cr Clr Drug Dosing 171.84 mL/min Estimated GFR (MDRD) > 60 (>60) Glucose 92 (74-106) mg/dL Calcium 9.1 (8.5-10.1) mg/dL Total Bilirubin 6.3 H (0.2-1.0) mg/dL AST 83 H (15-37) U/L ALT 73 (12-78) U/L Alkaline Phosphatase 246 H (46-116) U/L Total Protein 6.2 L (6.4-8.2) g/dL Albumin 2.2 L (3.4-5.0) g/dL Globulin 4.0 H (2.3-3.5) g/dL Albumin/Globulin Ratio 0.6 L (1.2-2.2) Med Orders - Current: Current Medications Duloxetine HCl (Cymbalta) 30 mg PO DAILY [facility] Last Admin: 04/15/18 14:49 Dose: 30 mg Folic Acid (Folic Acid) 1 mg PO DAILY [facility] Last Admin: 04/15/18 14:50 Dose: 1 mg Gabapentin (Neurontin) 200 mg PO Q8H [facility] Last Admin: 04/16/18 05:31 Dose: 200 mg Ibuprofen (Motrin) 400 mg PO Q6H PRN PRN Reason: Pain (mild 1-3) Last Admin: 04/10/18 08:27 Dose: 400 mg Lorazepam (Ativan) 0 mg IV ASDIRECTED [facility]; Protocol Last Admin: 04/16/18 00:51 Dose: 2 mg Lorazepam (Ativan) 0 mg PO ASDIRECTED [facility]; Protocol Last Admin: 04/15/18 21:36 Dose: 1 mg Ondansetron HCl (Zofran) 4 mg IV Q4H PRN PRN Reason: Nausea/Vomiting Pantoprazole Sodium (Protonix) 40 mg PO DAILY@0730 [facility] Last Admin: 04/15/18 14:49 Dose: 40 mg Sodium Chloride (Saline Flush) 10 ml FLUSH ASDIRECTED PRN PRN Reason: Keep Vein Open Last Admin: 04/13/18 16:47 Dose: 10 ml Thiamine HCl (Vitamin B-1) 100 mg PO DAILY [facility] Last Admin: 04/15/18 14:50 Dose: 100 mg Topiramate (Topamax) 25 mg PO BID [facility] Last Admin: 04/15/18 21:32 Dose: 25 mg Discontinued Medications Gabapentin (Neurontin) 400 mg PO Q8H [facility] Last Admin: 04/13/18 05:22 Dose: 400 mg Gabapentin (Neurontin) 200 mg PO Q8H [facility] Last Admin: 04/15/18 06:29 Dose: 200 mg Sodium Chloride (Normal Saline) 1,000 mls @ 999 mls/hr IV ASDIRECTED [facility] Last Admin: 04/09/18 16:22 Dose: 999 mls/hr Potassium Chloride/Sodium Chloride (Normal Saline With 40 Meq Kcl) 1,000 mls @ 300 mls/hr IV ASDIRECTED [facility] Last Admin: 04/09/18 17:31 Dose: 300 mls/hr Sodium Chloride (Normal Saline) 70 mls @ 3 mls/sec IV ASDIRECTED [facility] Last Admin: 04/09/18 18:45 Dose: 3 mls/sec Multivitamins/Minerals 10 ml/Thiamine HCl 100 mg/ Folic Acid 1 mg/ Magnesium Sulfate 2 gm/ Sodium Chloride 1,015.2 mls @ 100 mls/hr IV ONETIME ONE Stop: 04/10/18 05:29 Last Admin: 04/09/18 21:10 Dose: 100 mls/hr Sodium Chloride (Normal Saline) 1,000 mls @ 125 mls/hr IV ASDIRECTED [facility] Last Admin: 04/10/18 04:48 Dose: 125 mls/hr Potassium Chloride 20 meq/Lidocaine HCl 2 ml/ Sodium Chloride 112 mls @ 50 mls/ hr IV Q2H [facility] Stop: 04/10/18 01:59 Last Admin: 04/10/18 01:01 Dose: 50 mls/hr Potassium Chloride (Kcl 20 Meq In Water 100 Ml) Confirm Administered Dose 100 mls @ as directed .ROUTE .[facility] ONE Stop: 04/09/18 22:15 Last Admin: 04/09/18 22:25 Dose: Not Given Potassium Chloride (Kcl 20 Meq In Water 100 Ml) Confirm Administered Dose 100 mls @ as directed .ROUTE .[facility] ONE Stop: 04/10/18 00:58 Last Admin: 04/10/18 03:27 Dose: Not Given Sodium Chloride (Normal Saline) 1,000 mls @ 75 mls/hr IV ASDIRECTED [facility] Last Admin: 04/11/18 02:29 Dose: 75 mls/hr Magnesium Sulfate 2 gm/ Premix 50 mls @ 25 mls/hr IV Q6H [facility] Stop: 04/11/18 22:59 Last Admin: 04/11/18 20:43 Dose: 25 mls/hr Magnesium Sulfate 2 gm/ Premix 50 mls @ 25 mls/hr IV Q6H [facility] Stop: 04/14/18 23:59 Last Admin: 04/14/18 21:37 Dose: 25 mls/hr Iopamidol (Isovue-300 (61%)) 96 ml IV . DIRECTED [facility] Last Admin: 04/09/18 18:45 Dose: 96 ml Lidocaine HCl (Xylocaine 1%) 1 ml .XX ONETIME ONE Stop: 04/09/18 22:01 Last Admin: 04/09/18 22:25 Dose: Not Given Lidocaine HCl (Xylocaine-Mpf 1%) 2 ml INJECT ONETIME ONE Stop: 04/09/18 22:12 Last Admin: 04/09/18 23:35 Dose: Not Given Pantoprazole Sodium (Protonix Iv) 40 mg IVPUSH Q24H [facility] Last Admin: 04/10/18 19:31 Dose: 40 mg Pantoprazole Sodium (Protonix) 40 mg PO Q24H [facility] Last Admin: 04/14/18 20:14 Dose: 40 mg Potassium Chloride (Klor-Con M20) 40 meq PO ONETIME ONE Stop: 04/09/18 18:32 Last Admin: 04/09/18 20:53 Dose: 40 meq Potassium Chloride (Klor-Con M20) 40 meq PO ONETIME ONE Stop: 04/15/18 09:31 Last Admin: 04/15/18 14:50 Dose: 40 meq Sodium Chloride (Saline Flush) 10 ml FLUSH ONETIME ONE Stop: 04/09/18 17:28 Last Admin: 04/09/18 18:45 Dose: 10 ml - Exam Quality Assessment: No: Supplemental Oxygen General: Alert, No Acute Distress, Lethargic. No: Cooperative Lungs: Clear to Auscultation, Normal Respiratory Effort Cardiovascular: Regular Rate, Regular Rhythm Extremities: No Pedal Edema. No: Increased Warmth Psy/Mental Status: Alert. No: Agitated - Problem List Review Problem List Initiated/Reviewed/Updated: Yes - My Orders Last 24 Hours: My Active Orders 04/17/18 05:00 BASIC METABOLIC PANEL,BMP [CHEM] Timed CBC W/O DIFF,HEMOGRAM [HEME] Timed (1) - Plan Plan:: ASSESSMENT AND PLAN ALCOHOLIC HEPATITIS - bilirubin slowly trending down.still waiting for the patient to be coherent enough to complete a rule 25. -Stop all alcohol use -Repeat liver enzymes every other day ALCOHOL WITHDRAWAL DELIRIUM - currently experiencing alcohol withdrawal with delirium, hallucinations, and some agitation. -Alcohol withdrawal protocol -Gabapentin 200 mg by mouth every 8 hours 4 days SYNCOPAL EPISODE - lightheadedness has essentially resolved, no further syncopal episodes -Hold lisinopril PANCREATITIS - resolved -Regular diet CHRONIC LOW BACK PAIN - stable MAINTENANCE ISSUES -DVT prophylaxis; SCUDs -GI prophylaxis; Protonix -Preston catheter; not indicated -Nutrition; regular diet DISPOSITION - anticipate discharge to home versus to treatment after the hospital stay. Kiran Sharma MD
[2018-04-16] MEDS: Topiramate 25 MG Tab PO SCH ×2 (10:00→21:35)
[2018-04-16] MEDS: Folic Acid 1 MG Tab PO SCH (10:00)
[2018-04-16] MEDS: Thiamine 100 MG Tab PO SCH (10:00)
[2018-04-16] MEDS: DULoxetine 30 MG Cap PO SCH (10:00)
[2018-04-16] MEDS: Pantoprazole 40 MG Tab.CR PO SCH (10:00)
[2018-04-16] MEDS: LORazepam 1 MG Tab PO SCH (21:35)
[2018-04-17] MEDS: Gabapentin 100 MG Cap PO SCH ×3 (05:45→21:52)
[2018-04-17] MEDS: Pantoprazole 40 MG Tab.CR PO SCH (07:53)
[2018-04-17] MEDS: Thiamine 100 MG Tab PO SCH (07:59)
[2018-04-17] MEDS: Folic Acid 1 MG Tab PO SCH (07:59)
[2018-04-17] MEDS: DULoxetine 30 MG Cap PO SCH (07:59)
[2018-04-17] MEDS: Topiramate 25 MG Tab PO SCH ×2 (07:59→21:51)
[2018-04-17] MEDS ORDERED: Potassium Chloride 20 MEQ Tab.ER PO ONE (09:00)
--- NOTE | 2018-04-17 09:27 | PCM.PN ---
- General Info Date of Service: 04/17/18 Subjective Update: There were no acute events overnight. Patient did receive a dose of lorazepam yesterday afternoon but has not needed any since that time. He is more alert and interactive today. He is answering questions appropriately but has a very delayed response. No complaints of pain today. He had hallucinations yesterday afternoon but does not seem to be hallucinating today. Functional Status: Reports: Pain Controlled, Tolerating Diet - Review of Systems General: Reports: Weakness - Patient Data Vitals - Most Recent: Last Vital Signs Temp 35.8 C 04/17/18 08:00 Pulse 84 04/17/18 08:00 Resp 11 L 04/17/18 08:00 BP 139/97 H 04/17/18 08:00 Pulse Ox 100 04/17/18 08:00 Orthostatic Blood Pressure [ 97/60 Standing] Orthostatic Blood Pressure [ 115/80 Sitting] Orthostatic Blood Pressure [ 126/82 Supine] Weight - Most Recent: 72.665 kg I&O - Last 24 Hours: Intake & Output 04/16/18 04/17/18 04/17/18 22:59 06:59 14:59 Intake Total 360 Balance 360 Lab Results Last 24 Hours: Laboratory Results - last 24 hr 04/17/18 04/17/18 Range/Units 05:05 05:05 WBC 4.3 L (4.5-11.0) K/uL RBC 2.80 L (4.30-5.90) M/uL Hgb 9.1 L (12.0-15.0) g/dL Hct 29.5 L (40.0-54.0) % MCV 105 H (80-98) fL MCH 33 H (27-31) pg MCHC 31 L (32-36) % Plt Count 197 (150-400) K/uL Sodium 137 L (140-148) mmol/L Potassium 3.5 L (3.6-5.2) mmol/L Chloride 104 (100-108) mmol/L Carbon Dioxide 22 (21-32) mmol/L Anion Gap 14.5 H (5.0-14.0) mmol/L BUN 9 (7-18) mg/dL Creatinine 0.8 (0.8-1.3) mg/dL Est Cr Clr Drug Dosing 128.88 mL/min Estimated GFR (MDRD) > 60 (>60) Glucose 94 (74-106) mg/dL Calcium 8.9 (8.5-10.1) mg/dL Med Orders - Current: Current Medications Duloxetine HCl (Cymbalta) 30 mg PO DAILY [facility] Last Admin: 04/17/18 07:59 Dose: 30 mg Folic Acid (Folic Acid) 1 mg PO DAILY [facility] Last Admin: 04/17/18 07:59 Dose: 1 mg Gabapentin (Neurontin) 200 mg PO Q8H [facility] Last Admin: 04/17/18 05:45 Dose: 200 mg Ibuprofen (Motrin) 400 mg PO Q6H PRN PRN Reason: Pain (mild 1-3) Last Admin: 04/10/18 08:27 Dose: 400 mg Lorazepam (Ativan) 0 mg IV ASDIRECTED [facility]; Protocol Last Admin: 04/16/18 15:36 Dose: 2 mg Lorazepam (Ativan) 0 mg PO ASDIRECTED [facility]; Protocol Last Admin: 04/16/18 21:35 Dose: 2 mg Ondansetron HCl (Zofran) 4 mg IV Q4H PRN PRN Reason: Nausea/Vomiting Pantoprazole Sodium (Protonix) 40 mg PO DAILY@0730 [facility] Last Admin: 04/17/18 07:53 Dose: 40 mg Sodium Chloride (Saline Flush) 10 ml FLUSH ASDIRECTED PRN PRN Reason: Keep Vein Open Last Admin: 04/13/18 16:47 Dose: 10 ml Thiamine HCl (Vitamin B-1) 100 mg PO DAILY [facility] Last Admin: 04/17/18 07:59 Dose: 100 mg Topiramate (Topamax) 25 mg PO BID [facility] Last Admin: 04/17/18 07:59 Dose: 25 mg Discontinued Medications Gabapentin (Neurontin) 400 mg PO Q8H [facility] Last Admin: 04/13/18 05:22 Dose: 400 mg Gabapentin (Neurontin) 200 mg PO Q8H [facility] Last Admin: 04/15/18 06:29 Dose: 200 mg Sodium Chloride (Normal Saline) 1,000 mls @ 999 mls/hr IV ASDIRECTED [facility] Last Admin: 04/09/18 16:22 Dose: 999 mls/hr Potassium Chloride/Sodium Chloride (Normal Saline With 40 Meq Kcl) 1,000 mls @ 300 mls/hr IV ASDIRECTED [facility] Last Admin: 04/09/18 17:31 Dose: 300 mls/hr Sodium Chloride (Normal Saline) 70 mls @ 3 mls/sec IV ASDIRECTED [facility] Last Admin: 04/09/18 18:45 Dose: 3 mls/sec Multivitamins/Minerals 10 ml/Thiamine HCl 100 mg/ Folic Acid 1 mg/ Magnesium Sulfate 2 gm/ Sodium Chloride 1,015.2 mls @ 100 mls/hr IV ONETIME ONE Stop: 04/10/18 05:29 Last Admin: 04/09/18 21:10 Dose: 100 mls/hr Sodium Chloride (Normal Saline) 1,000 mls @ 125 mls/hr IV ASDIRECTED [facility] Last Admin: 04/10/18 04:48 Dose: 125 mls/hr Potassium Chloride 20 meq/Lidocaine HCl 2 ml/ Sodium Chloride 112 mls @ 50 mls/ hr IV Q2H [facility] Stop: 04/10/18 01:59 Last Admin: 04/10/18 01:01 Dose: 50 mls/hr Potassium Chloride (Kcl 20 Meq In Water 100 Ml) Confirm Administered Dose 100 mls @ as directed .ROUTE .[facility] ONE Stop: 04/09/18 22:15 Last Admin: 04/09/18 22:25 Dose: Not Given Potassium Chloride (Kcl 20 Meq In Water 100 Ml) Confirm Administered Dose 100 mls @ as directed .ROUTE .[facility] ONE Stop: 04/10/18 00:58 Last Admin: 04/10/18 03:27 Dose: Not Given Sodium Chloride (Normal Saline) 1,000 mls @ [facility] Admin: 04/11/18 02:29 Dose: 75 mls/hr Magnesium Sulfate 2 gm/ Premix 50 mls @ 25 mls/hr IV Q6H [facility] Stop: 04/11/18 22:59 Last Admin: 04/11/18 20:43 Dose: 25 mls/hr Magnesium Sulfate 2 gm/ Premix 50 mls @ 25 mls/hr IV Q6H [facility] Stop: 04/14/18 23:59 Last Admin: 04/14/18 21:37 Dose: 25 mls/hr Iopamidol (Isovue-300 (61%)) 96 ml IV . DIRECTED [facility] Last Admin: 04/09/18 18:45 Dose: 96 ml Lidocaine HCl (Xylocaine 1%) 1 ml .XX ONETIME ONE Stop: 04/09/18 22:01 Last Admin: 04/09/18 22:25 Dose: Not Given Lidocaine HCl (Xylocaine-Mpf 1%) 2 ml INJECT ONETIME ONE Stop: 04/09/18 22:12 Last Admin: 04/09/18 23:35 Dose: Not Given Pantoprazole Sodium (Protonix Iv) 40 mg IVPUSH Q24H [facility] Last Admin: 04/10/18 19:31 Dose: 40 mg Pantoprazole Sodium (Protonix) 40 mg PO Q24H [facility] Last Admin: 04/14/18 20:14 Dose: 40 mg Potassium Chloride (Klor-Con M20) 40 meq PO ONETIME ONE Stop: 04/09/18 18:32 Last Admin: 04/09/18 20:53 Dose: 40 meq Potassium Chloride (Klor-Con M20) 40 meq PO ONETIME ONE Stop: 04/15/18 09:31 Last Admin: 04/15/18 14:50 Dose: 40 meq Potassium Chloride (Klor-Con M20) 40 meq PO ONETIME ONE Stop: 04/17/18 09:01 Sodium Chloride (Saline Flush) 10 ml FLUSH ONETIME ONE Stop: 04/09/18 17:28 Last Admin: 04/09/18 18:45 Dose: 10 ml - Exam General: Alert, Cooperative, No Acute Distress Lungs: Normal Respiratory Effort Skin: Warm, Dry Psy/Mental Status: Alert. No: Anxious, Agitated - Problem List Review Problem List Initiated/Reviewed/Updated: Yes - My Orders Last 24 Hours: My Active Orders 04/17/18 08:40 PT Evaluation and Treatment [CONS] Routine 04/17/18 09:25 Discontinue Telemetry Monitoring [Cardiac Monitoring Discontinue] [RC] Click to Edit 04/18/18 05:00 COMPREHENSIVE METABOLIC PN,CMP [CHEM] Timed - Plan Plan:: ASSESSMENT AND PLAN ALCOHOLIC HEPATITIS - bilirubin slowly trending down and patient seems to be slowly improving. -Absolute alcohol cessation -Repeat liver enzymes every other day ALCOHOL WITHDRAWAL DELIRIUM - currently experiencing alcohol withdrawal with delirium but seems to be improving very slowly. No active hallucinations obvious today. I think he should be ready for a rule 25 assessment today. -Alcohol withdrawal protocol -Gabapentin 200 mg by mouth every 8 hours 4 days (stop after tomorrow's doses) -Rule 25 today SYNCOPAL EPISODE - no further syncopal episodes. -Hold lisinopril PANCREATITIS - resolved -Regular diet CHRONIC LOW BACK PAIN - stable MAINTENANCE ISSUES -DVT prophylaxis; SCUDs -GI prophylaxis; Protonix -Preston catheter; not indicated -Nutrition; regular diet DISPOSITION - anticipate discharge to home versus to treatment after the hospital stay. Kiran Sharma MD
[2018-04-17] MEDS: LORazepam 1 MG Tab PO SCH ×2 (16:44→21:52)
[2018-04-17] MEDS: LORazepam 2 MG/ML SDV IV SCH (23:51)
[2018-04-18] MEDS ORDERED: Potassium Chloride 20 MEQ Tab.ER PO ONE (08:45)
[2018-04-18] MEDS: Topiramate 25 MG Tab PO SCH ×2 (08:48→21:17)
[2018-04-18] MEDS: Gabapentin 100 MG Cap PO SCH ×3 (08:49→21:17)
[2018-04-18] MEDS: Pantoprazole 40 MG Tab.CR PO SCH (08:49)
[2018-04-18] MEDS: Folic Acid 1 MG Tab PO SCH (08:49)
[2018-04-18] MEDS: DULoxetine 30 MG Cap PO SCH (08:49)
[2018-04-18] MEDS: Thiamine 100 MG Tab PO SCH (08:49)
--- NOTE | 2018-04-18 09:22 | PCM.PN ---
- General Info Date of Service: 04/18/18 Subjective Update: Patient had some difficulty with restlessness overnight as well as some confusion and hallucinations. He received lorazepam twice yesterday. Does not report any pain at this time. He is not very talkative this morning and is waiting for the family conference this afternoon to discuss issues including alcohol use and plans after discharge. - Patient Data Vitals - Most Recent: Last Vital Signs Temp 36 C 04/18/18 04:00 Pulse 84 04/18/18 04:00 Resp 15 04/18/18 04:00 BP 116/74 04/18/18 04:00 Pulse Ox 96 04/18/18 04:00 Orthostatic Blood Pressure [ 97/60 Standing] Orthostatic Blood Pressure [ 115/80 Sitting] Orthostatic Blood Pressure [ 126/82 Supine] Weight - Most Recent: 72.665 kg I&O - Last 24 Hours: Intake & Output 04/17/18 04/18/18 04/18/18 22:59 06:59 14:59 Intake Total 690 Balance 690 Lab Results Last 24 Hours: Laboratory Results - last 24 hr 04/18/18 Range/Units 05:01 Sodium 135 L (140-148) mmol/L Potassium 3.4 L (3.6-5.2) mmol/L Chloride 103 (100-108) mmol/L Carbon Dioxide 20 L (21-32) mmol/L Anion Gap 15.4 H (5.0-14.0) mmol/L BUN 5 L (7-18) mg/dL Creatinine 0.7 L (0.8-1.3) mg/dL Est Cr Clr Drug Dosing 151.39 mL/min Estimated GFR (MDRD) > 60 (>60) Glucose 103 (74-106) mg/dL Calcium 9.0 (8.5-10.1) mg/dL Total Bilirubin 4.4 H (0.2-1.0) mg/dL AST 71 H (15-37) U/L ALT 83 H (12-78) U/L Alkaline Phosphatase 236 H (46-116) U/L Total Protein 6.0 L (6.4-8.2) g/dL Albumin 2.2 L (3.4-5.0) g/dL Globulin 3.8 H (2.3-3.5) g/dL Albumin/Globulin Ratio 0.6 L (1.2-2.2) Med Orders - Current: Current Medications Duloxetine HCl (Cymbalta) 30 mg PO DAILY [facility] Last Admin: 04/18/18 08:49 Dose: 30 mg Folic Acid (Folic Acid) 1 mg PO DAILY [facility] Last Admin: 04/18/18 08:49 Dose: 1 mg Gabapentin (Neurontin) 200 mg PO Q8H [facility] Last Admin: 04/18/18 08:49 Dose: 200 mg Ibuprofen (Motrin) 400 mg PO Q6H PRN PRN Reason: Pain (mild 1-3) Last Admin: 04/10/18 08:27 Dose: 400 mg Lorazepam (Ativan) 0 mg IV ASDIRECTED [facility]; Protocol Last Admin: 04/17/18 23:51 Dose: 2 mg Lorazepam (Ativan) 0 mg PO ASDIRECTED [facility]; Protocol Last Admin: 04/17/18 21:52 Dose: 2 mg Ondansetron HCl (Zofran) 4 mg IV Q4H PRN PRN Reason: Nausea/Vomiting Pantoprazole Sodium (Protonix) 40 mg PO DAILY@0730 [facility] Last Admin: 04/18/18 08:49 Dose: 40 mg Sodium Chloride (Saline Flush) 10 ml FLUSH ASDIRECTED PRN PRN Reason: Keep Vein Open Last Admin: 04/13/18 16:47 Dose: 10 ml Thiamine HCl (Vitamin B-1) 100 mg PO DAILY [facility] Last Admin: 04/18/18 08:49 Dose: 100 mg Topiramate (Topamax) 25 mg PO BID [facility] Last Admin: 04/18/18 08:48 Dose: 25 mg Discontinued Medications Gabapentin (Neurontin) 400 mg PO Q8H [facility] Last Admin: 04/13/18 05:22 Dose: 400 mg Gabapentin (Neurontin) 200 mg PO Q8H [facility] Last Admin: 04/15/18 06:29 Dose: 200 mg Sodium Chloride (Normal Saline) 1,000 mls @ 999 mls/hr IV ASDIRECTED [facility] Last Admin: 04/09/18 16:22 Dose: 999 mls/hr Potassium Chloride/Sodium Chloride (Normal Saline With 40 Meq Kcl) 1,000 mls @ 300 mls/hr IV ASDIRECTED [facility] Last Admin: 04/09/18 17:31 Dose: 300 mls/hr Sodium Chloride (Normal Saline) 70 mls @ 3 mls/sec IV ASDIRECTED [facility] Last Admin: 04/09/18 18:45 Dose: 3 mls/sec Multivitamins/Minerals 10 ml/Thiamine HCl 100 mg/ Folic Acid 1 mg/ Magnesium Sulfate 2 gm/ Sodium Chloride 1,015.2 mls @ 100 mls/hr IV ONETIME ONE Stop: 04/10/18 05:29 Last Admin: 04/09/18 21:10 Dose: 100 mls/hr Sodium Chloride (Normal Saline) 1,000 mls @ 125 mls/hr IV ASDIRECTED [facility] Last Admin: 04/10/18 04:48 Dose: 125 mls/hr Potassium Chloride 20 meq/Lidocaine HCl 2 ml/ Sodium Chloride 112 mls @ 50 mls/ hr IV Q2H [facility] Stop: 04/10/18 01:59 Last Admin: 04/10/18 01:01 Dose: 50 mls/hr Potassium Chloride (Kcl 20 Meq In Water 100 Ml) Confirm Administered Dose 100 mls @ as directed .ROUTE .[facility] Stop: 04/09/18 22:15 Last Admin: 04/09/18 22:25 Dose: Not Given Potassium Chloride (Kcl 20 Meq In Water 100 Ml) Confirm Administered Dose 100 mls @ as directed .ROUTE .[facility] ONE Stop: 04/10/18 00:58 Last Admin: 04/10/18 03:27 Dose: Not Given Sodium Chloride (Normal Saline) 1,000 mls @ 75 mls/hr IV ASDIRECTED [facility] Last Admin: 04/11/18 02:29 Dose: 75 mls/hr Magnesium Sulfate 2 gm/ Premix 50 mls @ 25 mls/hr IV Q6H [facility] Stop: 04/11/18 22:59 Last Admin: 04/11/18 20:43 Dose: 25 mls/hr Magnesium Sulfate 2 gm/ Premix 50 mls @ 25 mls/hr IV Q6H [facility] Stop: 04/14/18 23:59 Last Admin: 04/14/18 21:37 Dose: 25 mls/hr Iopamidol (Isovue-300 (61%)) 96 ml IV . DIRECTED [facility] Last Admin: 04/09/18 18:45 Dose: 96 ml Lidocaine HCl (Xylocaine 1%) 1 ml .XX ONETIME ONE Stop: 04/09/18 22:01 Last Admin: 04/09/18 22:25 Dose: Not Given Lidocaine HCl (Xylocaine-Mpf 1%) 2 ml INJECT ONETIME ONE Stop: 04/09/18 22:12 Last Admin: 04/09/18 23:35 Dose: Not Given Pantoprazole Sodium (Protonix Iv) 40 mg IVPUSH Q24H [facility] Last Admin: 04/10/18 19:31 Dose: 40 mg Pantoprazole Sodium (Protonix) 40 mg PO Q24H [facility] Last Admin: 04/14/18 20:14 Dose: 40 mg Potassium Chloride (Klor-Con M20) 40 meq PO ONETIME ONE Stop: 04/09/18 18:32 Last Admin: 04/09/18 20:53 Dose: 40 meq Potassium Chloride (Klor-Con M20) 40 meq PO ONETIME ONE Stop: 04/15/18 09:31 Last Admin: 04/15/18 14:50 Dose: 40 meq Potassium Chloride (Klor-Con M20) 40 meq PO ONETIME ONE Stop: 04/17/18 09:01 Last Admin: 04/17/18 11:22 Dose: 40 meq Potassium Chloride (Klor-Con M20) 40 meq PO ONETIME ONE Stop: 04/18/18 08:46 Last Admin: 04/18/18 08:49 Dose: 40 meq Sodium Chloride (Saline Flush) 10 ml FLUSH ONETIME ONE Stop: 04/09/18 17:28 Last Admin: 04/09/18 18:45 Dose: 10 ml - Exam Quality Assessment: No: Supplemental Oxygen General: Alert, Cooperative, No Acute Distress HEENT: Scleral Icterus Lungs: Normal Respiratory Effort Psy/Mental Status: Alert. No: Normal Affect (Flat affect) - Problem List Review Problem List Initiated/Reviewed/Updated: Yes - My Orders Last 24 Hours: My Active Orders 04/17/18 08:40 PT Evaluation and Treatment [CONS] Routine 04/19/18 05:00 BASIC METABOLIC PANEL,BMP [CHEM] Timed CBC W/O DIFF,HEMOGRAM [HEME] Timed (1) - Plan Plan:: ASSESSMENT AND PLAN ALCOHOLIC HEPATITIS - bilirubin slowly trending down and patient continues to slowly improve. -Absolute alcohol cessation -Repeat liver enzymes every other day ALCOHOL WITHDRAWAL DELIRIUM - currently experiencing alcohol withdrawal with delirium but seems to be improving very slowly. No active hallucinations obvious today but he did have some again yesterday evening. He did complete a rule 25 assessment yesterday but the environmental protection inspector felt that with ongoing alcohol withdrawal and was not a complete assessment. -Alcohol withdrawal protocol -Gabapentin 200 mg by mouth every 8 hours 4 days (stop after today's doses) -Family conference this afternoon to discuss discharge plans SYNCOPAL EPISODE - no further syncopal episodes. -Hold lisinopril PANCREATITIS - resolved -Regular diet CHRONIC LOW BACK PAIN - stable MAINTENANCE ISSUES -DVT prophylaxis; SCUDs -GI prophylaxis; Protonix -Preston catheter; not indicated -Nutrition; regular diet DISPOSITION - anticipate discharge to home versus to treatment after the hospital stay. Kiran Sharma MD
[2018-04-18] MEDS: Nicotine 10 MG/Cartridge Inhaler 168 Cartridges/Box INH PRN (16:14)
[2018-04-18] MEDS: LORazepam 1 MG Tab PO SCH (20:15)
[2018-04-19] MEDS ORDERED: Potassium Chloride 20 MEQ Tab.ER PO ONE (09:00)
[2018-04-19] MEDS: Topiramate 25 MG Tab PO SCH ×2 (09:04→20:24)
[2018-04-19] MEDS: DULoxetine 30 MG Cap PO SCH (09:04)
[2018-04-19] MEDS: Folic Acid 1 MG Tab PO SCH (09:04)
[2018-04-19] MEDS: Thiamine 100 MG Tab PO SCH (09:06)
[2018-04-19] MEDS: Pantoprazole 40 MG Tab.CR PO SCH (09:07)
[2018-04-19] MEDS: Nicotine 10 MG/Cartridge Inhaler 168 Cartridges/Box INH PRN (09:08)
[2018-04-19] MEDS ORDERED: LORazepam 1 MG Tab PO PRN (09:16)
--- NOTE | 2018-04-19 09:18 | PCM.PN ---
- General Info Date of Service: 04/19/18 Subjective Update: There were no acute events overnight. He did receive lorazepam at 1999 last night but none since. Slept all night. Agreeable to treatment yet this morning. Much more clear and interactive today. No behavior issues. Vital signs all been stable. Potassium still slightly low. Functional Status: Reports: Pain Controlled, Tolerating Diet - Review of Systems Neurological: Denies: Confusion - Patient Data Vitals - Most Recent: Last Vital Signs Temp 36.4 C 04/19/18 08:00 Pulse 81 04/19/18 08:00 Resp 14 04/19/18 08:00 BP 126/85 04/19/18 08:00 Pulse Ox 97 04/19/18 08:00 Orthostatic Blood Pressure [ 97/60 Standing] Orthostatic Blood Pressure [ 115/80 Sitting] Orthostatic Blood Pressure [ 126/82 Supine] Weight - Most Recent: 72.665 kg I&O - Last 24 Hours: Intake & Output 04/18/18 04/19/18 04/19/18 22:59 06:59 14:59 Intake Total 480 Balance 480 Lab Results Last 24 Hours: Laboratory Results - last 24 hr 04/19/18 04/19/18 Range/Units 05:00 05:00 WBC 5.8 (4.5-11.0) K/uL RBC 3.30 L (4.30-5.90) M/uL Hgb 10.8 L (12.0-15.0) g/dL Hct 34.7 L (40.0-54.0) % MCV 105 H (80-98) fL MCH 33 H (27-31) pg MCHC 31 L (32-36) % Plt Count 263 (150-400) K/uL Sodium 137 L (140-148) mmol/L Potassium 3.5 L (3.6-5.2) mmol/L Chloride 102 (100-108) mmol/L Carbon Dioxide 23 (21-32) mmol/L Anion Gap 15.5 H (5.0-14.0) mmol/L BUN 7 (7-18) mg/dL Creatinine 0.8 (0.8-1.3) mg/dL Est Cr Clr Drug Dosing 132.46 mL/min Estimated GFR (MDRD) > 60 (>60) Glucose 86 (74-106) mg/dL Calcium 9.4 (8.5-10.1) mg/dL Med Orders - Current: Current Medications Duloxetine HCl (Cymbalta) 30 mg PO DAILY [facility] Last Admin: 04/19/18 09:04 Dose: 30 mg Folic Acid (Folic Acid) 1 mg PO DAILY [facility] Last Admin: 04/19/18 09:04 Dose: 1 mg Ibuprofen (Motrin) 400 mg PO Q6H PRN PRN Reason: Pain (mild 1-3) Last Admin: 04/10/18 08:27 Dose: 400 mg Nicotine (Nicotrol) 10 mg INH Q2H PRN PRN Reason: nicotine craving Last Admin: 04/19/18 09:08 Dose: 10 mg Ondansetron HCl (Zofran) 4 mg IV Q4H PRN PRN Reason: Nausea/Vomiting Pantoprazole Sodium (Protonix) 40 mg PO DAILY@0730 [facility] Last Admin: 04/19/18 09:07 Dose: 40 mg Sodium Chloride (Saline Flush) 10 ml FLUSH ASDIRECTED PRN PRN Reason: Keep Vein Open Last Admin: 04/13/18 16:47 Dose: 10 ml Thiamine HCl (Vitamin B-1) 100 mg PO DAILY [facility] Last Admin: 04/19/18 09:06 Dose: 100 mg Topiramate (Topamax) 25 mg PO BID [facility] Last Admin: 04/19/18 09:04 Dose: 25 mg Discontinued Medications Gabapentin (Neurontin) 400 mg PO Q8H [facility] Last Admin: 04/13/18 05:22 Dose: 400 mg Gabapentin (Neurontin) 200 mg PO Q8H [facility] Last Admin: 04/15/18 06:29 Dose: 200 mg Gabapentin (Neurontin) 200 mg PO Q8H [facility] Stop: 04/18/18 23:00 Last Admin: 04/18/18 21:17 Dose: 200 mg Sodium Chloride (Normal Saline) 1,000 mls @ 999 mls/hr IV ASDIRECTED [facility] Last Admin: 04/09/18 16:22 Dose: 999 mls/hr Potassium Chloride/Sodium Chloride (Normal Saline With 40 Meq Kcl) 1,000 mls @ 300 mls/hr IV ASDIRECTED [facility] Last Admin: 04/09/18 17:31 Dose: 300 mls/hr Sodium Chloride (Normal Saline) 70 mls @ 3 mls/sec IV ASDIRECTED [facility] Last Admin: 04/09/18 18:45 Dose: 3 mls/sec Multivitamins/Minerals 10 ml/Thiamine HCl 100 mg/ Folic Acid 1 mg/ Magnesium Sulfate 2 gm/ Sodium Chloride 1,015.2 mls @ 100 mls/hr IV ONETIME ONE Stop: 04/10/18 05:29 Last Admin: 04/09/18 21:10 Dose: 100 mls/hr Sodium Chloride (Normal Saline) 1,000 mls @ 125 mls/hr IV ASDIRECTED [facility] Last Admin: 04/10/18 04:48 Dose: 125 mls/hr Potassium Chloride 20 meq/Lidocaine HCl 2 ml/ Sodium Chloride 112 mls @ 50 mls/ hr IV Q2H [facility] Stop: 04/10/18 01:59 Last Admin: 04/10/18 01:01 Dose: 50 mls/hr Potassium Chloride (Kcl 20 Meq In Water 100 Ml) Confirm Administered Dose 100 mls @ as directed .ROUTE .STK-MED ONE Stop: 04/09/18 22:15 Last Admin: 04/09/18 22:25 Dose: Not Given Potassium Chloride (Kcl 20 Meq In Water 100 Ml) Confirm Administered Dose 100 mls @ as directed .ROUTE .STK-MED ONE Stop: 04/10/18 00:58 Last Admin: 04/10/18 03:27 Dose: Not Given Sodium Chloride (Normal Saline) 1,000 mls @ 75 mls/hr IV ASDIRECTED [facility] Last Admin: 04/11/18 02:29 Dose: 75 mls/hr Magnesium Sulfate 2 gm/ Premix 50 mls @ 25 mls/hr IV Q6H [facility] Stop: 04/11/18 22:59 Last Admin: 04/11/18 20:43 Dose: 25 mls/hr Magnesium Sulfate 2 gm/ Premix 50 mls @ 25 mls/hr IV Q6H [facility] Stop: 04/14/18 23:59 Last Admin: 04/14/18 21:37 Dose: 25 mls/hr Iopamidol (Isovue-300 (61%)) 96 ml IV . DIRECTED [facility] Last Admin: 04/09/18 18:45 Dose: 96 ml Lidocaine HCl (Xylocaine 1%) 1 ml .XX ONETIME ONE Stop: 04/09/18 22:01 Last Admin: 04/09/18 22:25 Dose: Not Given Lidocaine HCl (Xylocaine-Mpf 1%) 2 ml INJECT ONETIME ONE Stop: 04/09/18 22:12 Last Admin: 04/09/18 23:35 Dose: Not Given Lorazepam (Ativan) 0 mg IV ASDIRECTED [facility]; Protocol Last Admin: 04/17/18 23:51 Dose: 2 mg Lorazepam (Ativan) 0 mg PO ASDIRECTED [facility]; Protocol Last Admin: 04/18/18 20:15 Dose: 1 mg Pantoprazole Sodium (Protonix Iv) 40 mg IVPUSH Q24H [facility] Last Admin: 04/10/18 19:31 Dose: 40 mg Pantoprazole Sodium (Protonix) 40 mg PO Q24H [facility] Last Admin: 04/14/18 20:14 Dose: 40 mg Potassium Chloride (Klor-Con M20) 40 meq PO ONETIME ONE Stop: 04/09/18 18:32 Last Admin: 04/09/18 20:53 Dose: 40 meq Potassium Chloride (Klor-Con M20) 40 meq PO ONETIME ONE Stop: 04/15/18 09:31 Last Admin: 04/15/18 14:50 Dose: 40 meq Potassium Chloride (Klor-Con M20) 40 meq PO ONETIME ONE Stop: 04/17/18 09:01 Last Admin: 04/17/18 11:22 Dose: 40 meq Potassium Chloride (Klor-Con M20) 40 meq PO ONETIME ONE Stop: 04/18/18 08:46 Last Admin: 04/18/18 08:49 Dose: 40 meq Potassium Chloride (Klor-Con M20) 40 meq PO ONETIME ONE Stop: 04/19/18 09:01 Last Admin: 04/19/18 09:04 Dose: 40 meq Sodium Chloride (Saline Flush) 10 ml FLUSH ONETIME ONE Stop: 04/09/18 17:28 Last Admin: 04/09/18 18:45 Dose: 10 ml - Exam Quality Assessment: No: Supplemental Oxygen General: Alert, Oriented, Cooperative, No Acute Distress HEENT: Scleral Icterus Lungs: Normal Respiratory Effort GI/Abdominal Exam: No Distention Extremities: No Pedal Edema Skin: Other (jaundice) Psy/Mental Status: Alert, Normal Affect - Problem List Review Problem List Initiated/Reviewed/Updated: Yes - My Orders Last 24 Hours: My Active Orders 04/18/18 15:30 Nicotine [Nicotrol] 10 mg INH Q2H PRN 04/19/18 09:16 LORazepam [Ativan] 1 mg PO Q4H PRN 04/20/18 05:00 COMPREHENSIVE METABOLIC PN,CMP [CHEM] Timed - Plan Plan:: ASSESSMENT AND PLAN ALCOHOLIC HEPATITIS - bilirubin slowly trending down and patient continues to improve. He is at high risk for hepatic failure if he decides to drink again. -Absolute alcohol cessation -Repeat liver enzymes every other day ALCOHOL WITHDRAWAL DELIRIUM - finally seems to be completing his alcohol withdrawal experience. No active hallucinations overnight or today.. He did partially complete a rule 25 assessment. We are hoping for inpatient treatment. At this time patient is willing to go voluntarily. -Pursue plans for voluntary inpatient treatment SYNCOPAL EPISODE - no further syncopal episodes. -Hold lisinopril PANCREATITIS - resolved -Regular diet CHRONIC LOW BACK PAIN - stable MAINTENANCE ISSUES -DVT prophylaxis; SCUDs -GI prophylaxis; Protonix -Preston catheter; not indicated -Nutrition; regular diet DISPOSITION - anticipate discharge to treatment after the hospital stay. Kiran Sharma MD
[2018-04-19] MEDS: Ibuprofen 400 MG Tab PO PRN (21:54)
[2018-04-20] MEDS: Pantoprazole 40 MG Tab.CR PO SCH (06:56)
[2018-04-20 08:02] VITALS: BP 133/91
[2018-04-20] MEDS: Folic Acid 1 MG Tab PO SCH (08:18)
[2018-04-20] MEDS: Thiamine 100 MG Tab PO SCH (08:19)
[2018-04-20] MEDS: DULoxetine 30 MG Cap PO SCH (08:19)
[2018-04-20] MEDS: Topiramate 25 MG Tab PO SCH (08:19)
--- NOTE | 2018-04-20 13:22 | PCM.PN ---
- General Info Date of Service: 04/20/18 Subjective Update: There were no acute events overnight. There have been no behavior issues. He has not needed lorazepam. He is more steady on his feet each and every day. He is interested in going to treatment. A treatment bed is available but not until Monday unfortunately. Functional Status: Reports: Pain Controlled, Tolerating Diet - Review of Systems General: Denies: Fever - Patient Data Vitals - Most Recent: Last Vital Signs Temp 35 C L 04/20/18 07:59 Pulse 78 04/20/18 07:59 Resp 18 04/20/18 07:59 BP 133/91 H 04/20/18 07:59 Pulse Ox 100 04/20/18 04:46 Orthostatic Blood Pressure [ 97/60 Standing] Orthostatic Blood Pressure [ 115/80 Sitting] Orthostatic Blood Pressure [ 126/82 Supine] Weight - Most Recent: 72.665 kg I&O - Last 24 Hours: Intake & Output 04/19/18 04/20/18 04/20/18 22:59 06:59 14:59 Intake Total 360 Balance 360 Lab Results Last 24 Hours: Laboratory Results - last 24 hr 04/20/18 Range/Units 04:40 Sodium 138 L (140-148) mmol/L Potassium 3.6 (3.6-5.2) mmol/L Chloride 104 (100-108) mmol/L Carbon Dioxide 24 (21-32) mmol/L Anion Gap 13.6 (5.0-14.0) mmol/L BUN 9 (7-18) mg/dL Creatinine 0.7 L (0.8-1.3) mg/dL Est Cr Clr Drug Dosing 151.39 mL/min Estimated GFR (MDRD) > 60 (>60) Glucose 95 (74-106) mg/dL Calcium 9.0 (8.5-10.1) mg/dL Total Bilirubin 3.8 H (0.2-1.0) mg/dL AST 49 H (15-37) U/L ALT 70 (12-78) U/L Alkaline Phosphatase 200 H (46-116) U/L Total Protein 6.0 L (6.4-8.2) g/dL Albumin 2.2 L (3.4-5.0) g/dL Globulin 3.8 H (2.3-3.5) g/dL Albumin/Globulin Ratio 0.6 L (1.2-2.2) Med Orders - Current: Current Medications Duloxetine HCl (Cymbalta) 30 mg PO DAILY [facility] Last Admin: 04/20/18 08:19 Dose: 30 mg Folic Acid (Folic Acid) 1 mg PO DAILY [facility] Last Admin: 04/20/18 08:18 Dose: 1 mg Ibuprofen (Motrin) 400 mg PO Q6H PRN PRN Reason: Pain (mild 1-3) Last Admin: 04/19/18 21:54 Dose: 400 mg Lorazepam (Ativan) 1 mg PO Q4H PRN PRN Reason: Anxiety Last Admin: 04/19/18 21:55 Dose: 1 mg Nicotine (Nicotrol) 10 mg INH Q2H PRN PRN Reason: nicotine craving Last Admin: 04/19/18 09:08 Dose: 10 mg Ondansetron HCl (Zofran) 4 mg IV Q4H PRN PRN Reason: Nausea/Vomiting Pantoprazole Sodium (Protonix) 40 mg PO DAILY@0730 [facility] Last Admin: 04/20/18 06:56 Dose: 40 mg Sodium Chloride (Saline Flush) 10 ml FLUSH ASDIRECTED PRN PRN Reason: Keep Vein Open Last Admin: 04/13/18 16:47 Dose: 10 ml Thiamine HCl (Vitamin B-1) 100 mg PO DAILY [facility] Last Admin: 04/20/18 08:19 Dose: 100 mg Topiramate (Topamax) 25 mg PO BID [facility] Last Admin: 04/20/18 08:19 Dose: 25 mg Discontinued Medications Gabapentin (Neurontin) 400 mg PO Q8H [facility] Last Admin: 04/13/18 05:22 Dose: 400 mg Gabapentin (Neurontin) 200 mg PO Q8H [facility] Last Admin: 04/15/18 06:29 Dose: 200 mg Gabapentin (Neurontin) 200 mg PO Q8H [facility] Stop: 04/18/18 23:00 Last Admin: 04/18/18 21:17 Dose: 200 mg Sodium Chloride (Normal Saline) 1,000 mls @ 999 mls/hr IV ASDIRECTED [facility] Last Admin: 04/09/18 16:22 Dose: 999 mls/hr Potassium Chloride/Sodium Chloride (Normal Saline With 40 Meq Kcl) 1,000 mls @ 300 mls/hr IV ASDIRECTED [facility] Last Admin: 04/09/18 17:31 Dose: 300 mls/hr Sodium Chloride (Normal Saline) 70 mls @ 3 mls/sec IV ASDIRECTED [facility] Last Admin: 04/09/18 18:45 Dose: 3 mls/sec Multivitamins/Minerals 10 ml/Thiamine HCl 100 mg/ Folic Acid 1 mg/ Magnesium Sulfate 2 gm/ Sodium Chloride 1,015.2 mls @ 100 mls/hr IV ONETIME ONE Stop: 04/10/18 05:29 Last Admin: 04/09/18 21:10 Dose: 100 mls/hr Sodium Chloride (Normal Saline) 1,000 mls @ 125 mls/hr IV ASDIRECTED [facility] Last Admin: 04/10/18 04:48 Dose: 125 mls/hr Potassium Chloride 20 meq/Lidocaine HCl 2 ml/ Sodium Chloride 112 mls @ 50 mls/ hr IV Q2H [facility] Stop: 04/10/18 01:59 Last Admin: 04/10/18 01:01 Dose: 50 mls/hr Potassium Chloride (Kcl 20 Meq In Water 100 Ml) Confirm Administered Dose 100 mls @ as directed .ROUTE .STK-MED ONE Stop: 04/09/18 22:15 Last Admin: 04/09/18 22:25 Dose: Not Given Potassium Chloride (Kcl 20 Meq In Water 100 Ml) Confirm Administered Dose 100 mls @ as directed .ROUTE .STK-MED ONE Stop: 04/10/18 00:58 Last Admin: 04/10/18 03:27 Dose: Not Given Sodium Chloride (Normal Saline) 1,000 mls @ 75 [facility] Last Admin: 04/11/18 02:29 Dose: 75 mls/hr Magnesium Sulfate 2 gm/ Premix 50 mls @ 25 mls/hr IV Q6H [facility] Stop: 04/11/18 22:59 Last Admin: 04/11/18 20:43 Dose: 25 mls/hr Magnesium Sulfate 2 gm/ Premix 50 mls @ 25 mls/hr IV Q6H [facility] Stop: 04/14/18 23:59 Last Admin: 04/14/18 21:37 Dose: 25 mls/hr Iopamidol (Isovue-300 (61%)) 96 ml IV . DIRECTED [facility] Last Admin: 04/09/18 18:45 Dose: 96 ml Lidocaine HCl (Xylocaine 1%) 1 ml .XX ONETIME ONE Stop: 04/09/18 22:01 Last Admin: 04/09/18 22:25 Dose: Not Given Lidocaine HCl (Xylocaine-Mpf 1%) 2 ml INJECT ONETIME ONE Stop: 04/09/18 22:12 Last Admin: 04/09/18 23:35 Dose: Not Given Lorazepam (Ativan) 0 mg IV ASDIRECTED [facility]; Protocol Last Admin: 04/17/18 23:51 Dose: 2 mg Lorazepam (Ativan) 0 mg PO ASDIRECTED [facility]; Protocol Last Admin: 04/18/18 20:15 Dose: 1 mg Pantoprazole Sodium (Protonix Iv) 40 mg IVPUSH Q24H [facility] Last Admin: 04/10/18 19:31 Dose: 40 mg Pantoprazole Sodium (Protonix) 40 mg PO Q24H [facility] Last Admin: 04/14/18 20:14 Dose: 40 mg Potassium Chloride (Klor-Con M20) 40 meq PO ONETIME ONE Stop: 04/09/18 18:32 Last Admin: 04/09/18 20:53 Dose: 40 meq Potassium Chloride (Klor-Con M20) 40 meq PO ONETIME ONE Stop: 04/15/18 09:31 Last Admin: 04/15/18 14:50 Dose: 40 meq Potassium Chloride (Klor-Con M20) 40 meq PO ONETIME ONE Stop: 04/17/18 09:01 Last Admin: 04/17/18 11:22 Dose: 40 meq Potassium Chloride (Klor-Con M20) 40 meq PO ONETIME ONE Stop: 04/18/18 08:46 Last Admin: 04/18/18 08:49 Dose: 40 meq Potassium Chloride (Klor-Con M20) 40 meq PO ONETIME ONE Stop: 04/19/18 09:01 Last Admin: 04/19/18 09:04 Dose: 40 meq Sodium Chloride (Saline Flush) 10 ml FLUSH ONETIME ONE Stop: 04/09/18 17:28 Last Admin: 04/09/18 18:45 Dose: 10 ml - Exam Quality Assessment: No: Supplemental Oxygen General: Alert, Oriented, Cooperative, No Acute Distress Lungs: Normal Respiratory Effort GI/Abdominal Exam: No Distention Psy/Mental Status: Alert, Normal Affect - Problem List Review Problem List Initiated/Reviewed/Updated: Yes - My Orders Last 24 Hours: My Active Orders 04/20/18 13:18 Transfer Patient (Change bed) [ADT] Routine - Plan Plan:: ASSESSMENT AND PLAN ALCOHOLIC HEPATITIS - bilirubin slowly trending down and patient continues to improve. He is at high risk for hepatic failure if he decides to drink again. -Absolute alcohol cessation -Repeat liver enzymes every other day ALCOHOL WITHDRAWAL DELIRIUM - finally through his alcohol withdrawal and is no longer delirious. No behavior issues. -Pursue plans for voluntary inpatient treatment SYNCOPAL EPISODE - no further syncopal episodes. -Discontinue lisinopril PANCREATITIS - resolved -Regular diet CHRONIC LOW BACK PAIN - stable MAINTENANCE ISSUES -DVT prophylaxis; SCUDs -GI prophylaxis; Protonix -Preston catheter; not indicated -Nutrition; regular diet DISPOSITION - anticipate discharge to treatment after the hospital stay. A bed will be available on Monday. Patient is at a high risk for relapse and will remain hospitalized until that time. Kiran Sharma MD
--- NOTE | 2018-04-20 17:10 | PCM.DCSUM1 ---
Discharge Summary - Hospital Course Brief History: 37-year-old male with history of alcohol abuse who presented with syncope in the setting of ongoing alcohol abuse. He was admitted for management of alcoholic pancreatitis and alcoholic hepatitis. Diagnosis: Stroke: No - Discharge Data Discharge Date: 04/20/18 Discharge Disposition: Against Medical Advice 07 Condition: Fair - Discharge Diagnosis/Problem(s) (1) Alcoholic hepatitis without ascites SNOMED Code(s): 880913645 ICD Code: K70.10 - ALCOHOLIC HEPATITIS WITHOUT ASCITES Status: Acute (2) Pancreatitis SNOMED Code(s): 65277022 ICD Code: K85.90 - ACUTE PANCREATITIS WITHOUT NECROSIS OR INFECTION, UNSP Status: Acute (3) Alcohol withdrawal delirium, acute, hypoactive SNOMED Code(s): 5637958, 98068251 ICD Code: F10.231 - ALCOHOL DEPENDENCE WITH WITHDRAWAL DELIRIUM Status: Acute (4) Syncope and collapse SNOMED Code(s): 021061499 ICD Code: R55 - SYNCOPE AND COLLAPSE Status: Acute (5) Hypokalemia SNOMED Code(s): 13969132 ICD Code: E87.6 - HYPOKALEMIA Status: Acute (6) OREN (generalized anxiety disorder) SNOMED Code(s): 23057317 ICD Code: F41.1 - GENERALIZED ANXIETY DISORDER Status: Chronic (7) History of major depression SNOMED Code(s): 462843132 ICD Code: Z86.59 - PERSONAL HISTORY OF OTHER MENTAL AND BEHAVIORAL DISORDERS Status: Chronic - Patient Summary/Data Consults: Consultations 04/17/18 08:40 PT Evaluation and Treatment [CONS] Routine Please Evaluate and Treat. PT Reason for Consult: Strengthening This query below is only for informational purposes and is not editable. Admission Diagnosis/Problem: Cirrhosis of liver Hospital Course: Domingo presented to the emergency room after an episode of syncope. This occurred in the setting of heavy alcohol use with consumption of 1.75 L of vodka daily for some time. Workup in the emergency room revealed orthostatic hypotension, alcoholic pancreatitis and alcoholic hepatitis. CT scan obtained in the emergency room showed fatty infiltration of liver but no other acute findings. Bilirubin was initially elevated around 6. Lipase was elevated around 800. He was intoxicated with a blood alcohol level of 260 at the time of presentation. He was admitted to the hospital for further management and made nothing by mouth status. He was provided symptomatic management as well as IV fluids. The morning after admission, April 10 he developed alcohol withdrawal with tremulousness and increasing confusion. Bilirubin level had started to rise and lipase at also risen to about 1300. He was admitted to the intensive care unit and started on the alcohol withdrawal protocol. He was started on gabapentin as well as lorazepam. Over the next several days his alcohol withdrawal worsen to the point that he was very delirious and hypoactive for the most part. He was hallucinating with visual hallucinations. Bilirubin iesha over the next few days and peaked at 11.1. Since that peaked has trended down. Over the course of the last 5 days of his hospital stay his alcohol withdrawal did finally slowly resolved. His hallucinations have resolved and his mental status has improved probably back to baseline. As the hospital stay progressed and we were discussing discharge plans are hope was that he would go into inpatient treatment. We had a family discussion 3 days ago and at that point he was agreeable to going to inpatient chemical health and mental health treatment. We did discuss the possibility of commitment. Since he was going to proceed willingly we have elected to not pursue commitment. The next day he changed his mind and no longer wanted to go to treatment but after more discussions was more agreeable to inpatient treatment again. On the day of discharge he became very adamant that he no longer needed to be here and was ready to go home. This is very unfortunate as we did secure inpatient treatment for him but unfortunately no bed was available until Monday morning, 3 days from now. We had a very long discussion about the dangers of leaving at this time and is high risk for relapse back and alcohol use. This point he is not suicidal and he is not posing any immediate threat. We strongly encouraged him to remain here to attend his inpatient treatment program which is scheduled in the near future. At this point he does not seem very interested in treatment and was going mostly to appease his family but at this point he thinks he can do it on his own. My medical advice was that he stay here in the hospital to attend his inpatient treatment on Monday. We discussed the risks of going home including relapse and alcoholism. We discussed the fact that if he does drink there is an extremely high risk for morbidity and mortality given the severity of liver injury present at the time of presentation. He was willing to sign the AMA form and accept the risk of going home at this time. At the time of admission it was expected that his problems could be medically managed and he could be safely discharged in 96 hours or less. His hospital stay was prolonged well beyond the 96 hours because of severe alcohol withdrawal which was much more severe than expected and not anticipated at the time of admission. - Patient Instructions Other/Special Instructions: patient left AMA. He signed an AMA formed. I counseled him that this was a poor decision and a treatment plan for his alcohol abuse is in place with placement accepted for Monday. He insists on leaving at this time. He does accept the risk of leaving. - Discharge Plan *PRESCRIPTION DRUG MONITORING PROGRAM REVIEWED*: Not Applicable *COPY OF PRESCRIPTION DRUG MONITORING REPORT IN PATIENT MIKE: Not Applicable Home Medications: Home Meds Lisinopril 5 mg PO DAILY 04/27/17 [History] Baclofen 10 mg PO TID 04/09/18 [History] DULoxetine HCl [Duloxetine HCl] 30 mg PO DAILY 04/09/18 [History] Mirtazapine 7.5 mg PO BEDTIME PRN 04/09/18 [History] Topiramate [Topamax] 25 mg PO BID 04/09/18 [History] Oxygen Therapy Mode: Room Air Forms: ED Department Discharge Referrals: PCP,None [Primary Care Provider] - - Discharge Summary/Plan Comment DC Time >30 min.: No - Patient Data Vitals - Most Recent: Last Vital Signs Temp 35.4 C 04/20/18 16:00 Pulse 78 04/20/18 07:59 Resp 18 04/20/18 07:59 BP 133/91 H 04/20/18 07:59 Pulse Ox 100 04/20/18 04:46 Orthostatic Blood Pressure [ 97/60 Standing] Orthostatic Blood Pressure [ 115/80 Sitting] Orthostatic Blood Pressure [ 126/82 Supine] Weight - Most Recent: 72.665 kg I&O - Last 24 hours: Intake & Output 04/20/18 04/20/18 04/20/18 06:59 14:59 22:59 Intake Total 960 Balance 960 Lab Results - Last 24 hrs: Laboratory Results - last 24 hr 04/20/18 Range/Units 04:40 Sodium 138 L (140-148) mmol/L Potassium 3.6 (3.6-5.2) mmol/L Chloride 104 (100-108) mmol/L Carbon Dioxide 24 (21-32) mmol/L Anion Gap 13.6 (5.0-14.0) mmol/L BUN 9 (7-18) mg/dL Creatinine 0.7 L (0.8-1.3) mg/dL Est Cr Clr Drug Dosing 151.39 mL/min Estimated GFR (MDRD) > 60 (>60) Glucose 95 (74-106) mg/dL Calcium 9.0 (8.5-10.1) mg/dL Total Bilirubin 3.8 H (0.2-1.0) mg/dL AST 49 H (15-37) U/L ALT 70 (12-78) U/L Alkaline Phosphatase 200 H (46-116) U/L Total Protein 6.0 L (6.4-8.2) g/dL Albumin 2.2 L (3.4-5.0) g/dL Globulin 3.8 H (2.3-3.5) g/dL Albumin/Globulin Ratio 0.6 L (1.2-2.2) Med Orders - Current: Current Medications Discontinued Medications Duloxetine HCl (Cymbalta) 30 mg PO DAILY [facility] Last Admin: 04/20/18 08:19 Dose: 30 mg Folic Acid (Folic Acid) 1 mg PO DAILY [facility] Last Admin: 04/20/18 08:18 Dose: 1 mg Gabapentin (Neurontin) 400 mg PO Q8H [facility] Last Admin: 04/13/18 05:22 Dose: 400 mg Gabapentin (Neurontin) 200 mg PO Q8H [facility] Last Admin: 04/15/18 06:29 Dose: 200 mg Gabapentin (Neurontin) 200 mg PO Q8H [facility] Stop: 04/18/18 23:00 Last Admin: 04/18/18 21:17 Dose: 200 mg Sodium Chloride (Normal Saline) 1,000 mls @ 999 mls/hr IV ASDIRECTED [facility] Last Admin: 04/09/18 16:22 Dose: 999 mls/hr Potassium Chloride/Sodium Chloride (Normal Saline With 40 Meq Kcl) 1,000 mls @ 300 mls/hr IV ASDIRECTED [facility] Last Admin: 04/09/18 17:31 Dose: 300 mls/hr Sodium Chloride (Normal Saline) 70 mls @ 3 mls/sec IV ASDIRECTED [facility] Last Admin: 04/09/18 18:45 Dose: 3 mls/sec Multivitamins/Minerals 10 ml/Thiamine HCl 100 mg/ Folic Acid 1 mg/ Magnesium Sulfate 2 gm/ Sodium Chloride 1,015.2 mls @ 100 mls/hr IV ONETIME ONE Stop: 04/10/18 05:29 Last Admin: 04/09/18 21:10 Dose: 100 mls/hr Sodium Chloride (Normal Saline) 1,000 mls @ 125 mls/hr IV ASDIRECTED [facility] Last Admin: 04/10/18 04:48 Dose: 125 mls/hr Potassium Chloride 20 meq/Lidocaine HCl 2 ml/ Sodium Chloride 112 mls @ 50 mls/ hr IV Q2H [facility] Stop: 04/10/18 01:59 Last Admin: 04/10/18 01:01 Dose: 50 mls/hr Potassium Chloride (Kcl 20 Meq In Water 100 Ml) Confirm Administered Dose 100 mls @ as directed .ROUTE .STK-MED ONE Stop: 04/09/18 22:15 Last Admin: 04/09/18 22:25 Dose: Not Given Potassium Chloride (Kcl 20 Meq In Water 100 Ml) Confirm Administered Dose 100 mls @ as directed .ROUTE .STK-MED ONE Stop: 04/10/18 00:58 Last Admin: 04/10/18 03:27 Dose: Not Given Sodium Chloride (Normal Saline) 1,000 mls @ 75 mls/hr IV ASDIRECTED [facility] Last Admin: 04/11/18 02:29 Dose: 75 mls/hr Magnesium Sulfate 2 gm/ Premix 50 mls @ 25 mls/hr IV Q6H [facility] Stop: 04/11/18 22:59 Last Admin: 04/11/18 20:43 Dose: 25 mls/hr Magnesium Sulfate 2 gm/ Premix 50 mls @ 25 mls/hr IV Q6H [facility] Stop: 04/14/18 23:59 Last Admin: 04/14/18 21:37 Dose: 25 mls/hr Ibuprofen (Motrin) 400 mg PO Q6H PRN PRN Reason: Pain (mild 1-3) Last Admin: 04/19/18 21:54 Dose: 400 mg Iopamidol (Isovue-300 (61%)) 96 ml IV . DIRECTED [facility] Last Admin: 04/09/18 18:45 Dose: 96 ml Lidocaine HCl (Xylocaine 1%) 1 ml .XX ONETIME ONE Stop: 04/09/18 22:01 Last Admin: 04/09/18 22:25 Dose: Not Given Lidocaine HCl (Xylocaine-Mpf 1%) 2 ml INJECT ONETIME ONE Stop: 04/09/18 22:12 Last Admin: 04/09/18 23:35 Dose: Not Given Lorazepam (Ativan) 0 mg IV ASDIRECTED [facility]; Protocol Last Admin: 04/17/18 23:51 Dose: 2 mg Lorazepam (Ativan) 0 mg PO ASDIRECTED [facility]; Protocol Last Admin: 04/18/18 20:15 Dose: 1 mg Lorazepam (Ativan) 1 mg PO Q4H PRN PRN Reason: Anxiety Last Admin: 04/19/18 21:55 Dose: 1 mg Nicotine (Nicotrol) 10 mg INH Q2H PRN PRN Reason: nicotine craving Last Admin: 04/19/18 09:08 Dose: 10 mg Ondansetron HCl (Zofran) 4 mg IV Q4H PRN PRN Reason: Nausea/Vomiting Pantoprazole Sodium (Protonix Iv) 40 mg IVPUSH Q24H [facility] Last Admin: 04/10/18 19:31 Dose: 40 mg Pantoprazole Sodium (Protonix) 40 mg PO Q24H [facility] Last Admin: 04/14/18 20:14 Dose: 40 mg Pantoprazole Sodium (Protonix) 40 mg PO DAILY@0730 [facility] Last Admin: 04/20/18 06:56 Dose: 40 mg Potassium Chloride (Klor-Con M20) 40 meq PO ONETIME ONE Stop: 04/09/18 18:32 Last Admin: 04/09/18 20:53 Dose: 40 meq Potassium Chloride (Klor-Con M20) 40 meq PO ONETIME ONE Stop: 04/15/18 09:31 Last Admin: 04/15/18 14:50 Dose: 40 meq Potassium Chloride (Klor-Con M20) 40 meq PO ONETIME ONE Stop: 04/17/18 09:01 Last Admin: 04/17/18 11:22 Dose: 40 meq Potassium Chloride (Klor-Con M20) 40 meq PO ONETIME ONE Stop: 04/18/18 08:46 Last Admin: 04/18/18 08:49 Dose: 40 meq Potassium Chloride (Klor-Con M20) 40 meq PO ONETIME ONE Stop: 04/19/18 09:01 Last Admin: 04/19/18 09:04 Dose: 40 meq Sodium Chloride (Saline Flush) 10 ml FLUSH ONETIME ONE Stop: 04/09/18 17:28 Last Admin: 04/09/18 18:45 Dose: 10 ml Sodium Chloride (Saline Flush) 10 ml FLUSH ASDIRECTED PRN PRN Reason: Keep Vein Open Last Admin: 04/13/18 16:47 Dose: 10 ml Thiamine HCl (Vitamin B-1) 100 mg PO DAILY [facility] Last Admin: 04/20/18 08:19 Dose: 100 mg Topiramate (Topamax) 25 mg PO BID [facility] Last Admin: 04/20/18 08:19 Dose: 25 mg
== END 2018-04-20 17:00 | disposition left against medical advice (07) | DRG 432 ==
LOC: JP.ED 15:53 → JP.ICU 17:32
PROVIDERS: ADMIT Hospitalist; ATTEND Internal Medicine
DX: K70.10 Alcoholic hepatitis without ascites (principal); K85.20 Alcohol induced acute pancreatitis without necrosis or infection; F10.221 Alcohol dependence with intoxication delirium; F10.231 Alcohol dependence with withdrawal delirium; Y90.8 Blood alcohol level of 240 mg/100 ml or more; K76.0 Fatty (change of) liver, not elsewhere classified; R55 Syncope and collapse; S00.83XA Contusion of other part of head, initial encounter; E87.6 Hypokalemia; F41.1 Generalized anxiety disorder; Z86.59 Personal history of other mental and behavioral disorders; M54.9 Dorsalgia, unspecified; G89.29 Other chronic pain; F17.210 Nicotine dependence, cigarettes, uncomplicated; W19.XXXA Unspecified fall, initial encounter; Z91.81 History of falling; Y92.009 Unspecified place in unspecified non-institutional (private) residence as the place of occurrence of the external cause
CPT/HCPCS: 36415; 70450; 74177; 80048; 80053; 80074; 80305-QW; 81001; 82150; 82248; 83690; 83735; 85025; 85027; 85610; 96361; 96365; 96366; 97110-GP; 97116-GP; 97162-GP; 97530-GP; 99285-25; A9270-GY; C9113; G0480; J2001; J2060; J3411; J3475; J3480; J3490; J7030; Q9967

== ENCOUNTER 2018-04-28 21:54 | Emergency (ER) | payer MEDICAID ==
[2018-04-28 22:00] VITALS: BP 115/81
--- NOTE | 2018-04-28 23:36 | EDM.PDOCBH ---
ED HPI GENERAL MEDICAL PROBLEM - General Chief Complaint: Drug or Alcohol Abuse Stated Complaint: INTOXICATED VIA [place] Time Seen by Provider: 04/28/18 23:30 Source of Information: Reports: Patient History Limitations: Reports: No Limitations, Intoxication - History of Present Illness INITIAL COMMENTS - FREE TEXT/NARRATIVE: Pt arrived intoxicated. He has passed out a couple of times. Duration: Day(s): Location: Reports: Face Associated Symptoms: Reports: No Other Symptoms lower back pain Pain Score (Numeric/FACES): 0 - Related Data Allergies Allergy/AdvReac Type Severity Reaction Status Date / Time No Known Allergies Allergy Verified 04/28/18 22:01 Home Meds: Home Meds Lisinopril 5 mg PO DAILY 04/27/17 [History] Baclofen 10 mg PO TID 04/09/18 [History] DULoxetine HCl [Duloxetine HCl] 30 mg PO DAILY 04/09/18 [History] Mirtazapine 7.5 mg PO BEDTIME PRN 04/09/18 [History] Topiramate [Topamax] 25 mg PO BID 04/09/18 [History] Past Medical History HEENT History: Reports: Impaired Vision, Other (See Below) Other HEENT History: Carries Cardiovascular History: Reports: Hypertension Other Cardiovascular History: episode of blackouts Respiratory History: Reports: Sleep Apnea Gastrointestinal History: Reports: Cirrhosis Musculoskeletal History: Reports: Arthritis, Back Pain, Chronic Neurological History: Reports: Concussion, Headaches, Chronic, Seizure Psychiatric History: Reports: ADD, Addiction, Anxiety, Depression, Suicide Attempt - Infectious Disease History Infectious Disease History: Reports: Chicken Pox - Past Surgical History Neurological Surgical History: Reports: Laminectomy Social & Family History - Tobacco Use Smoking Status *Q: Current Every Day Smoker Years of Tobacco use: 15 Packs/Tins Daily: 0.5 - Caffeine Use Caffeine Use: Reports: Soda - Alcohol Use Date of Last Drink: 04/28/18 Time of Last Drink: 21:45 - Recreational Drug Use Recreational Drug Use: No ED ROS GENERAL - Review of Systems Review Of Systems: See Below Constitutional: Reports: Other (pt is intoxicated. ) HEENT: Reports: No Symptoms Respiratory: Reports: No Symptoms Cardiovascular: Reports: No Symptoms Endocrine: Reports: No Symptoms GI/Abdominal: Reports: No Symptoms : Reports: No Symptoms Musculoskeletal: Reports: No Symptoms Skin: Reports: Jaundice ED EXAM, BEHAVIORAL HEALTH - Physical Exam Exam: See Below Text/Narrative:: pt arrived with a history of drinking heavily. He has passed out twice. Exam Limited By: No Limitations General Appearance: Alert, Anxious, Other (pt is intoxicated. ) Ears: Normal TMs Nose: Normal Inspection Throat/Mouth: Normal Inspection Head: Atraumatic Neck: Normal Inspection Respiratory/Chest: No Respiratory Distress Cardiovascular: Regular Rate, Rhythm GI/Abdominal: Soft, Non-Tender (Male) Exam: Deferred Rectal (Males) Exam: Deferred Back Exam: Normal Inspection Extremities: Normal Inspection Neurological: Alert, Normal Cognition Psychiatric: Alert, Normal Cognition COURSE, BEHAVIORAL HEALTH COMP - Course Vital Signs: Last Vital Signs Temp 35.7 C 04/28/18 22:03 Pulse 93 04/28/18 22:03 Resp 16 04/28/18 22:03 BP 115/81 04/28/18 22:03 Pulse Ox 95 04/28/18 22:03 Orders, Labs, Meds: Laboratory Tests 04/28/18 04/28/18 04/28/18 Range/Units 22:37 22:37 22:37 WBC 7.2 (4.5-11.0) K/uL RBC 4.11 L (4.30-5.90) M/uL Hgb 13.0 D (12.0-15.0) g/dL Hct 40.3 (40.0-54.0) % MCV 98 (80-98) fL MCH 32 H (27-31) pg MCHC 32 (32-36) % Plt Count 324 (150-400) K/uL Neut % (Auto) 54 (36-66) % Lymph % (Auto) 34 (24-44) % [place] % (Auto) 10 H (2-6) % Eos % (Auto) 1 L (2-4) % Baso % (Auto) 1 (0-1) % Sodium 138 L (140-148) mmol/L Potassium 3.3 L (3.6-5.2) mmol/L Chloride 100 (100-108) mmol/L Carbon Dioxide 25 (21-32) mmol/L Anion Gap 16.3 H (5.0-14.0) mmol/L BUN 5 L (7-18) mg/dL Creatinine 0.7 L (0.8-1.3) mg/dL Est Cr Clr Drug Dosing 141.75 mL/min Estimated GFR (MDRD) > 60 (>60) Glucose 101 (74-106) mg/dL Calcium 9.0 (8.5-10.1) mg/dL Total Bilirubin 2.3 H (0.2-1.0) mg/dL AST 190 H D (15-37) U/L ALT 216 H (12-78) U/L Alkaline Phosphatase 285 H (46-116) U/L Total Protein 7.4 (6.4-8.2) g/dL Albumin 2.8 L (3.4-5.0) g/dL Globulin 4.6 H (2.3-3.5) g/dL Albumin/Globulin Ratio 0.6 L (1.2-2.2) Ethyl Alcohol 362 mg/dL Departure - Departure Time of Disposition: 23:36 Disposition: Home, Self-Care 01 Condition: Fair Clinical Impression: Intoxication, Jaundice, Elevated liver enzymes - Discharge Information Referrals: PCP,None [Primary Care Provider] - Forms: ED Department Discharge Care Plan Goals: try to stop drinking will send information to [facility] [place] if increased symptoms.
== END 2018-04-28 23:45 | disposition home or self-care (01) ==
LOC: JP.ED 21:54
DX: F10.929 Alcohol use, unspecified with intoxication, unspecified (principal); R17 Unspecified jaundice; F17.210 Nicotine dependence, cigarettes, uncomplicated; I10 Essential (primary) hypertension; F41.9 Anxiety disorder, unspecified; F32.9 Major depressive disorder, single episode, unspecified; Z79.899 Other long term (current) drug therapy; Y90.8 Blood alcohol level of 240 mg/100 ml or more
CPT/HCPCS: 36415; 80053; 85025; 99284; G0480

== ENCOUNTER 2018-07-24 16:29 | Inpatient (IN) | payer MEDICAID ==
[2018-07-24] MEDS ORDERED: MVI, Adult with Vitamin K 10 ML, Thiamine 100 MG, Folic Acid 1 MG, Magnesium Sulfate 3 ... IV SCH ×5 (16:45)
[2018-07-24] MEDS ORDERED: MVI, Adult with Vitamin K 10 ML, Thiamine 100 MG, Folic Acid 1 MG, Magnesium Sulfate 3 ... IV ONE ×5 (17:00)
--- NOTE | 2018-07-24 17:02 | EDM.PDOC ---
ED HPI GENERAL MEDICAL PROBLEM - General Chief Complaint: Drug or Alcohol Abuse Stated Complaint: [facility] Time Seen by Provider: 07/24/18 16:30 Source of Information: Reports: Patient, EMS, Family History Limitations: Reports: Intoxication - History of Present Illness INITIAL COMMENTS - FREE TEXT/NARRATIVE: 37-year-old male chronic alcoholic who cannot stay sober for any appreciable length of time unless in the hospital setting. His last hospitalization he went through significant withdrawal, and it was set up for him to go in into treatment on discharge but he left AMA and started drinking right away. Today the family called the ambulance because he was at home "unresponsive". He's been drinking vodka daily. Patient denies any pain, now that he is here at the emergency room he is awake and talking. He is obviously jaundiced, hypotensive and tachycardic. He denies any fever or chills. He has a chronic cough but is a smoker. Onset: Unknown/Unsure Associated Symptoms: Reports: Malaise, Weakness. Denies: Fever/Chills - Related Data Allergies Allergy/AdvReac Type Severity Reaction Status Date / Time No Known Allergies Allergy Verified 04/28/18 22:01 Home Meds: Home Meds Lisinopril 5 mg PO DAILY 04/27/17 [History] DULoxetine HCl [Duloxetine HCl] 30 mg PO DAILY 04/09/18 [History] Past Medical History HEENT History: Reports: Impaired Vision, Other (See Below) Other HEENT History: Carries Cardiovascular History: Reports: Hypertension Other Cardiovascular History: episode of blackouts Respiratory History: Reports: Sleep Apnea Gastrointestinal History: Reports: Cirrhosis Musculoskeletal History: Reports: Arthritis, Back Pain, Chronic Neurological History: Reports: Concussion, Headaches, Chronic, Seizure Psychiatric History: Reports: ADD, Addiction, Anxiety, Depression, Suicide Attempt - Infectious Disease History Infectious Disease History: Reports: Chicken Pox - Past Surgical History Neurological Surgical History: Reports: Laminectomy Social & Family History - Tobacco Use Years of Tobacco use: 20 - Caffeine Use Caffeine Use: Reports: Coffee, Soda - Recreational Drug Use Recreational Drug Use: No ED ROS GENERAL - Review of Systems Review Of Systems: See Below Constitutional: Reports: Malaise, Decreased Appetite. Denies: Fever HEENT: Denies: Vision Change Respiratory: Denies: Shortness of Breath Cardiovascular: Denies: Chest Pain GI/Abdominal: Denies: Abdominal Pain : Denies: Dysuria Neurological: Reports: Weakness - Physical Exam Exam: See Below Exam Limited By: Intoxication General Appearance: Alert, No Apparent Distress Eye Exam: Bilateral Eye: EOMI, Other (Obvious scleral icterus) Head Exam: Atraumatic Respiratory/Chest: No Respiratory Distress, Lungs Clear Cardiovascular: Regular Rate, Rhythm, Tachycardia GI/Abdominal: Hepatomegaly. No: Tender Neuro Exam (Abbreviated): Alert, Oriented Extremities: No: Pedal Edema Psychiatric: Depressed Mood, Flat Affect Skin Exam: Warm, Dry, Jaundice, Pallor Course - Vital Signs Last Recorded V/S: Last Vital Signs Temp 98.7 F 07/25/18 04:00 Pulse 119 H 07/24/18 21:00 Resp 24 H 07/25/18 06:00 BP 108/81 07/25/18 06:00 Pulse Ox 97 07/25/18 06:00 - Orders/Labs/Meds Orders: Medication Orders Duloxetine HCl (Cymbalta) 30 mg PO DAILY RUSS Folic Acid (Folic Acid) 1 mg PO DAILY RUSS Gabapentin (Neurontin) 400 mg PO TID RUSS Last Admin: 07/24/18 20:41 Dose: 400 mg Haloperidol Lactate (Haldol) 2 mg IVPUSH Q4H PRN PRN Reason: Agitation Dextrose/Sodium Chloride (Dextrose 5%-Normal Saline) 1,000 mls @ 125 mls/hr IV ASDIRECTED RUSS Last Admin: 07/25/18 03:32 Dose: 125 mls/hr Infusion: 07/25/18 03:32 Dose: 125 mls/hr Admin: 07/24/18 19:58 Dose: 125 mls/hr Potassium Chloride (Kcl 20 Meq In Water 100 Ml) 100 mls @ 50 mls/hr IV Q2H RUSS Stop: 07/25/18 10:59 Last Admin: 07/25/18 06:32 Dose: 50 mls/hr Ibuprofen (Motrin) 600 mg PO Q6H PRN PRN Reason: Pain/Fever Lorazepam (Ativan) 0 mg PO ASDIRECTED RUSS; Protocol Lorazepam (Ativan) 0 mg IV ASDIRECTED RUSS; Protocol Last Admin: 07/25/18 03:55 Dose: 2 mg Admin: 07/25/18 01:18 Dose: 2 mg Admin: 07/24/18 20:29 Dose: 2 mg Lorazepam (Ativan) 2 mg IVPUSH ASDIRECTED PRN PRN Reason: Seizures Magnesium Hydroxide (Milk Of Magnesia) 30 ml PO Q12H PRN PRN Reason: Constipation Melatonin (Melatonin) 9 mg PO BEDTIME ON LICENSE OF [facility] Last Admin: 07/24/18 22:20 Dose: Not Given Nicotine (Habitrol) 14 mg TRDERM DAILY ON LICENSE OF [facility] Ondansetron HCl (Zofran Odt) 4 mg PO Q6H PRN PRN Reason: Nausea able to take PO Ondansetron HCl (Zofran) 4 mg IV Q6H PRN PRN Reason: Nausea/Vomiting Pantoprazole Sodium (Protonix Iv) 40 mg IV DAILY ON LICENSE OF [facility] Last Admin: 07/24/18 19:52 Dose: 40 mg Senna/Docusate Sodium (Senna Plus) 1 tab PO BID PRN PRN Reason: Constipation Thiamine HCl (Vitamin B-1) 100 mg PO DAILY ON LICENSE OF [facility] Labs: Laboratory Tests 07/24/18 07/24/18 07/24/18 Range/Units 16:54 16:54 16:54 WBC 4.5 (4.5-11.0) K/uL RBC 4.42 (4.30-5.90) M/uL Hgb 14.4 (12.0-15.0) g/dL Hct 38.3 L (40.0-54.0) % MCV 87 (80-98) fL MCH 33 H (27-31) pg MCHC 38 H (32-36) % Plt Count 50 L (150-400) K/uL Neut % (Auto) 72 H (36-66) % Lymph % (Auto) 22 L (24-44) % [place] % (Auto) 6 (2-6) % Eos % (Auto) 0 L (2-4) % Baso % (Auto) 0 (0-1) % Sodium 125 L (140-148) mmol/L Potassium 3.0 L (3.6-5.2) mmol/L Chloride 79 L (100-108) mmol/L Carbon Dioxide 27 (21-32) mmol/L Anion Gap 22.0 H (5.0-14.0) mmol/L BUN 8 D (7-18) mg/dL Creatinine 0.7 L (0.8-1.3) mg/dL Est Cr Clr Drug Dosing 151.20 mL/min Estimated GFR (MDRD) > 60 (>60) Glucose 119 H (74-106) mg/dL Calcium 9.5 (8.5-10.1) mg/dL Total Bilirubin 14.5 H D (0.2-1.0) mg/dL AST 150 H (15-37) U/L ALT 114 H (12-78) U/L Alkaline Phosphatase 357 H (46-116) U/L Ammonia 39 H (11-32) mmol/L Total Protein 7.5 (6.4-8.2) g/dL Albumin 2.9 L (3.4-5.0) g/dL Globulin 4.6 H (2.3-3.5) g/dL Albumin/Globulin Ratio 0.6 L (1.2-2.2) Ethyl Alcohol mg/dL 07/24/18 Range/Units 16:54 WBC (4.5-11.0) K/uL RBC (4.30-5.90) M/uL Hgb (12.0-15.0) g/dL Hct (40.0-54.0) % MCV (80-98) fL MCH (27-31) pg MCHC (32-36) % Plt Count (150-400) K/uL Neut % (Auto) (36-66) % Lymph % (Auto) (24-44) % [place] % (Auto) (2-6) % Eos % (Auto) (2-4) % Baso % (Auto) (0-1) % Sodium (140-148) mmol/L Potassium (3.6-5.2) mmol/L Chloride (100-108) mmol/L Carbon Dioxide (21-32) mmol/L Anion Gap (5.0-14.0) mmol/L BUN (7-18) mg/dL Creatinine (0.8-1.3) mg/dL Est Cr Clr Drug Dosing mL/min Estimated GFR (MDRD) (>60) Glucose (74-106) mg/dL Calcium (8.5-10.1) mg/dL Total Bilirubin (0.2-1.0) mg/dL AST (15-37) U/L ALT (12-78) U/L Alkaline Phosphatase (46-116) U/L Ammonia (11-32) mmol/L Total Protein (6.4-8.2) g/dL Albumin (3.4-5.0) g/dL Globulin (2.3-3.5) g/dL Albumin/Globulin Ratio (1.2-2.2) Ethyl Alcohol 165 mg/dL Meds: Medications Generic Name Dose Route Start Last Admin Trade Name Freq PRN Reason Stop Dose Admin Duloxetine HCl 30 mg 07/25/18 09:00 Cymbalta PO DAILY RUSS Folic Acid 1 mg 07/25/18 09:00 Folic Acid PO DAILY RUSS Gabapentin 400 mg 07/24/18 21:00 07/24/18 20:41 Neurontin PO 400 mg TID RUSS Administration Haloperidol Lactate 2 mg 07/24/18 18:04 Haldol IVPUSH Q4H PRN Agitation Dextrose/Sodium Chloride 1,000 mls @ 125 mls/hr 07/24/18 18:04 07/25/18 03:32 Dextrose 5%-Normal Saline IV 125 mls/hr ASDIRECTED RUSS Administration Potassium Chloride 100 mls @ 50 mls/hr 07/25/18 07:00 07/25/18 06:32 Kcl 20 Meq In Water 100 Ml IV 07/25/18 10:59 50 mls/hr Q2H RUSS Administration Ibuprofen 600 mg 07/24/18 18:04 Motrin PO Q6H PRN Pain/Fever Lorazepam 0 mg 07/24/18 18:04 Ativan PO ASDIRECTED RUSS Protocol Lorazepam 0 mg 07/24/18 18:04 07/25/18 03:55 Ativan IV 2 mg ASDIRECTED RUSS Administration Protocol Lorazepam 2 mg 07/24/18 18:04 Ativan IVPUSH ASDIRECTED PRN Seizures Magnesium Hydroxide 30 ml 07/24/18 18:04 Milk Of Magnesia PO Q12H PRN Constipation Melatonin 9 mg 07/24/18 21:00 07/24/18 22:20 Melatonin PO Not Given BEDTIME RUSS Nicotine 14 mg 07/25/18 09:00 Habitrol TRDERM DAILY ON LICENSE OF [facility] Ondansetron HCl 4 mg 07/24/18 18:04 Zofran Odt PO Q6H PRN Nausea able to take PO Ondansetron HCl 4 mg 07/24/18 18:04 Zofran IV Q6H PRN Nausea/Vomiting Pantoprazole Sodium 40 mg 07/24/18 18:04 07/24/18 19:52 Protonix Iv IV 40 mg DAILY RUSS Administration Senna/Docusate Sodium 1 tab 07/24/18 18:04 Senna Plus PO BID PRN Constipation Thiamine HCl 100 mg 07/25/18 09:00 Vitamin B-1 PO DAILY RUSS Discontinued Medications Generic Name Dose Route Start Last Admin Trade Name Matiq PRN Reason Stop Dose Admin Multivitamins/Minerals 10 ml/ 1,017.2 mls @ 1,000 mls/hr 07/24/18 16:45 Thiamine HCl 100 mg/ Folic IV Acid 1 mg/ Magnesium Sulfate 3 ASDIRECTED RUSS gm/ Sodium Chloride Multivitamins/Minerals 10 ml/ 1,017.2 mls @ 500 mls/hr 07/24/18 17:00 17:03 Thiamine HCl 100 mg/ Folic IV 07/24/18 19:02 500 mls/hr Acid 1 mg/ Magnesium Sulfate 3 ASDIRECTED ONE Administration gm/ Sodium Chloride Potassium Chloride 20 meq/ 112 mls @ 50 mls/hr 07/24/18 18:04 07/24/18 22:00 Lidocaine HCl 2 ml/ Sodium IV 07/24/18 22:03 50 mls/hr Chloride Q2H RUSS Administration Potassium Chloride Confirm 07/24/18 19:42 07/24/18 19:49 Kcl 20 Meq In Water 100 Ml Administered 07/24/18 19:43 Not Given Dose 200 mls @ as directed .ROUTE .STK-MED ONE Potassium Chloride 20 meq/ 0 mls @ 50 mls/hr 07/25/18 05:59 Premix IV 07/25/18 06:00 ONETIME ONE Lidocaine HCl 2 ml 07/25/18 06:01 07/25/18 06:32 Xylocaine-Mpf 1% INJECT 07/25/18 06:02 2 ml ONETIME ONE Administration - Re-Assessments/Exams Free Text/Narrative Re-Assessment/Exam: 07/24/18 16:59 An IV was started and the patient was aggressively hydrated with normal saline, his pulse improved after just a few 100 mL of fluid. A banana bag was ordered for a second liter bolus, CBC, CMP, EtOH and ammonia levels were drawn. I had a discussion with the family, they were insisting that he needed a 72 hour hold and mandatory placement for long-term treatment. This was discussed with Dr. Sharma of the hospitalist service and he agreed to see the patient to consider admission and treatment for chronic alcoholism and likely alcohol withdrawal. 07/24/18 17:35 Ammonia 39, ETOH .165. WBC and hemoglobin normal. Departure - Departure Time of Disposition: 18:21 Disposition: Admitted As Inpatient 68 Clinical Impression: Alcohol abuse, Dehydration Alcoholic cirrhosis of liver Qualifiers: Ascites presence: unspecified Qualified Code(s): K70.30 - Alcoholic cirrhosis of liver without ascites - Discharge Information
--- NOTE | 2018-07-24 17:56 | PCM.HP ---
H&P History of Present Illness - General Date of Service: 07/24/18 Admit Problem/Dx: Admission Diagnosis/Problem Admission Diagnosis/Problem Alcoholic hepatitis without ascites Source of Information: Patient, Family, Provider History Limitations: Reports: No Limitations - History of Present Illness Initial Comments - Free Text/Narative: CC: I feel fine HPI: Ronny presents to the emergency room by ambulance after he was found unresponsive on the floor this afternoon. Per emergency room report an ambulance was summoned after a neighbor heard a loud crash in his apartment and found him laying on the floor. He reports that he blacked out and passed out while attempting to go from his couch to the bathroom to dump out a bucket full of vomit. He reports one episode of vomiting today but has not had previous episodes. Paramedics were concerned that there may have been some blood streaking in the emesis. He does not currently endorse any abdominal pain or nausea. He does endorse episodes of lightheadedness after standing and has had several falls in his apartment over the past few weeks. He does admit to drinking at the very least one half of a liter of vodka per day and up to 1 L per day sometimes. He has been doing this steadily since he was in the hospital more than 3 months ago. He does not endorse headache, shoulder pain, hip or knee pain from the fall. There are no obvious signs of trauma. He does have a history of severe alcohol withdrawal. His father thinks that he's been having episodes of seizure activity which he describes as Ronny will suddenly fall to the ground and convulse for seconds and may be up to half a minute. He is often confused after the episode but then returns to normal after a short while. Workup in the emergency room has revealed a blood alcohol level of 165, evidence for alcoholic hepatitis including a bilirubin of more than 14. Ammonia level is mildly elevated. Platelet level is quite low at 50,000. The patient will be admitted to the intensive care unit for management of alcoholic hepatitis. I have a strong concern that he will experience severe alcohol withdrawal as he did last time. - Related Data Allergies/Adverse Reactions: Allergies Allergy/AdvReac Type Severity Reaction Status Date / Time No Known Allergies Allergy Verified 04/28/18 22:01 Home Medications: Home Meds Lisinopril 5 mg PO DAILY 04/27/17 [History] DULoxetine HCl [Duloxetine HCl] 30 mg PO DAILY 04/09/18 [History] Past Medical History HEENT History: Reports: Impaired Vision, Other (See Below) Other HEENT History: Carries Cardiovascular History: Reports: Hypertension Other Cardiovascular History: episode of blackouts Respiratory History: Reports: Sleep Apnea Gastrointestinal History: Reports: Cirrhosis Musculoskeletal History: Reports: Arthritis, Back Pain, Chronic Neurological History: Reports: Concussion, Headaches, Chronic, Seizure Psychiatric History: Reports: ADD, Addiction, Anxiety, Depression, Suicide Attempt - Infectious Disease History Infectious Disease History: Reports: Chicken Pox - Past Surgical History Neurological Surgical History: Reports: Laminectomy Social & Family History - Family History Psychiatric: Reports: Other (See Below) (brother with alcoholism) - Tobacco Use Years of Tobacco use: 20 - Caffeine Use Caffeine Use: Reports: Coffee, Soda - Alcohol Use Alcohol Use History: Yes Days Per Week of Alcohol Use: 7 Number of Drinks Per Day Comment: 1/2 to 1 L of vodka daily - Recreational Drug Use Recreational Drug Use: No H&P Review of Systems - Review of Systems: Review Of Systems: See Below Free Text/Narrative: A complete 12 point review of systems was obtained. Pertinent positives and negatives are noted in the history of present illness. All other systems were reviewed and were negative except as noted. Exam - Exam Exam: See Below - Vital Signs Vital Signs: Last Vital Signs Temp 35.2 C 07/24/18 16:49 Pulse 103 H 07/24/18 17:49 Resp 18 07/24/18 17:49 BP 115/67 07/24/18 17:49 Pulse Ox 99 07/24/18 17:49 Weight: 72.575 kg - Exam Quality Assessment: No: Supplemental Oxygen General: Alert, Cooperative. No: Mild Distress HEENT: Pupils Equal, Scleral Icterus, Other (purulent drainage from medial and lateral right eye. No evidence for head trauma ). No: Mucosa Moist & Kelly (dry) Neck: Supple, Trachea Midline. No: Lymphadenopathy Lungs: Clear to Auscultation, Normal Respiratory Effort Cardiovascular: Regular Rhythm, Tachycardia. No: Systolic Murmur GI/Abdominal Exam: Soft, Non-Tender, No Distention. No: Normal Bowel Sounds ( hypoactive) Extremities: No Pedal Edema. No: Increased Warmth Skin: Warm, Dry, Other (jaundice) Neuro Extensive - Mental Status: Alert, Nl Response to Commands Neuro Extensive - Motor, Sensory, Reflexes: Tremor, Other (asterixis and tongue fasciculations). No: Dysarthria Psychiatric: Alert, Normal Affect. No: Anxious, Agitated - Patient Data Lab Results Last 24 hrs: Laboratory Results - last 24 hr 07/24/18 07/24/18 07/24/18 Range/Units 16:54 16:54 16:54 WBC 4.5 (4.5-11.0) K/uL RBC 4.42 (4.30-5.90) M/uL Hgb 14.4 (12.0-15.0) g/dL Hct 38.3 L (40.0-54.0) % MCV 87 (80-98) fL MCH 33 H (27-31) pg MCHC 38 H (32-36) % Plt Count 50 L (150-400) K/uL Neut % (Auto) 72 H (36-66) % Lymph % (Auto) 22 L (24-44) % [place] % (Auto) 6 (2-6) % Eos % (Auto) 0 L (2-4) % Baso % (Auto) 0 (0-1) % Sodium 125 L (140-148) mmol/L Potassium 3.0 L (3.6-5.2) mmol/L Chloride 79 L (100-108) mmol/L Carbon Dioxide 27 (21-32) mmol/L Anion Gap 22.0 H (5.0-14.0) mmol/L BUN 8 D (7-18) mg/dL Creatinine 0.7 L (0.8-1.3) mg/dL Est Cr Clr Drug Dosing 151.20 mL/min Estimated GFR (MDRD) > 60 (>60) Glucose 119 H (74-106) mg/dL Calcium 9.5 (8.5-10.1) mg/dL Total Bilirubin 14.5 H D (0.2-1.0) mg/dL AST 150 H (15-37) U/L ALT 114 H (12-78) U/L Alkaline Phosphatase 357 H (46-116) U/L Ammonia 39 H (11-32) mmol/L Total Protein 7.5 (6.4-8.2) g/dL Albumin 2.9 L (3.4-5.0) g/dL Globulin 4.6 H (2.3-3.5) g/dL Albumin/Globulin Ratio 0.6 L (1.2-2.2) Ethyl Alcohol mg/dL 07/24/18 Range/Units 16:54 WBC (4.5-11.0) K/uL RBC (4.30-5.90) M/uL Hgb (12.0-15.0) g/dL Hct (40.0-54.0) % MCV (80-98) fL MCH (27-31) pg MCHC (32-36) % Plt Count (150-400) K/uL Neut % (Auto) (36-66) % Lymph % (Auto) (24-44) % [place] % (Auto) (2-6) % Eos % (Auto) (2-4) % Baso % (Auto) (0-1) % Sodium (140-148) mmol/L Potassium (3.6-5.2) mmol/L Chloride (100-108) mmol/L Carbon Dioxide (21-32) mmol/L Anion Gap (5.0-14.0) mmol/L BUN (7-18) mg/dL Creatinine (0.8-1.3) mg/dL Est Cr Clr Drug Dosing mL/min Estimated GFR (MDRD) (>60) Glucose (74-106) mg/dL Calcium (8.5-10.1) mg/dL Total Bilirubin (0.2-1.0) mg/dL AST (15-37) U/L ALT (12-78) U/L Alkaline Phosphatase (46-116) U/L Ammonia (11-32) mmol/L Total Protein (6.4-8.2) g/dL Albumin (3.4-5.0) g/dL Globulin (2.3-3.5) g/dL Albumin/Globulin Ratio (1.2-2.2) Ethyl Alcohol 165 mg/dL Result Diagrams: 07/24/18 16:54 07/24/18 16:54 *Q Meaningful Use (ADM) - VTE *Q VTE Pharmacological Contraindications *Q: Thrombocytopenia - VTE Risk Assess *Q Each Risk Factor Represents 1 Point: None Total Score 1 Point Risk Factors: 0 Each Risk Factor Represents 2 Points: None Total Score 2 Point Risk Factors: 0 Each Risk Factor Represents 3 Points: None Total Score 3 Point Risk Factors: 0 Each Risk Factor Represents 5 Points: None Total Score 5 Point Risk Factors: 0 Venous Thromboembolism Risk Factor Score *Q: 0 - Problem List (1) Alcoholic hepatitis without ascites SNOMED Code(s): 006580598 ICD Code: K70.10 - ALCOHOLIC HEPATITIS WITHOUT ASCITES Status: Acute Current Visit: No (2) Alcohol abuse SNOMED Code(s): 11282490 ICD Code: F10.10 - ALCOHOL ABUSE, UNCOMPLICATED Status: Acute Current Visit: Yes (3) Hypokalemia SNOMED Code(s): 82362808 ICD Code: E87.6 - HYPOKALEMIA Status: Acute Current Visit: No (4) Tobacco dependence SNOMED Code(s): 18511095 ICD Code: F17.200 - NICOTINE DEPENDENCE, UNSPECIFIED, UNCOMPLICATED Status : Chronic Current Visit: Yes Problem List Initiated/Reviewed/Updated: Yes Orders Last 24hrs: Active Orders 24 hr Category Date Time Status Patient Status Manage Transfer [TRANSFER] Routine ADT 07/24/18 17:46 Active MVI, Adult with Vitamin K [Infuvite Adult] 10 ml Med 07/24/18 17:00 Active Thiamine [Vitamin B-1] 100 mg Folic Acid 1 mg Magnesium Sulfate [Magnesium Sulfate 50%] 3 gm Sodium Chloride 0.9% [Normal Saline] 1,000 ml IV ASDIRECTED Resuscitation Status Routine Resus Stat 07/24/18 17:47 Ordered Medication Orders Multivitamins/Minerals 10 ml/Thiamine HCl 100 mg/ Folic Acid 1 mg/ Magnesium Sulfate 3 gm/ Sodium Chloride 1,017.2 mls @ 500 mls/hr IV ASDIRECTED ONE Stop: 07/24/18 19:02 Last Admin: 07/24/18 17:03 Dose: 500 mls/hr Assessment/Plan Comment:: ASSESSMENT AND PLAN - Alcoholic hepatitis - this occurs in the setting of long-standing and heavy alcohol use. The patient endorses drinking large quantities of alcohol daily since he was released from the hospital about 3 months ago. His bilirubin level is significantly elevated at more than 14. Highest it was during his last hospital stay was 11. I do not have an INR to calculate a discriminant function at this time. I believe the patient is at high risk for morbidity and mortality at this time and even higher risk if he does not completely quit drinking alcohol immediately. Patient has known cirrhosis with complications including thrombocytopenia, mild hepatic encephalopathy. He is absolutely in danger of dying of alcohol related liver failure in the very near future. -Intensive care unit admission -IV fluids for hydration -Obtain INR to calculate discriminant function, consider steroids if indicated -Symptomatic management for pain or nausea Alcohol abuse - long-standing history of alcohol use. He endorses previous driving while intoxicated offenses. He reports being through treatment multiple times in the past. During the past hospitalization he was able to voice understanding of the dangers of ongoing alcohol use which included the potential for if he were to continue drinking. He has continued to make poor choices with heavy alcohol use. He is not eating well. He is extremely weak. He does have a history of severe alcohol withdrawal and may be experiencing seizures related to his alcohol use. CIWAA protocol with lorazepam if indicated -Gabapentin 400 mg 3 times daily for 5 days then 200 mg 3 times daily for 5 days -Melatonin at bedtime -Petition court for commitment and alcohol treatment Hypokalemia - mild at this time based on laboratory studies but I suspect he has a significant deficit and will require many milliequivalents of replacement over the next couple of days. -Replace this evening and recheck tomorrow morning Tobacco dependence - no interest in quitting at this time. -Nicotine patch Maintenance issues - - DVT prophylaxis - mechanical with severe thrombocytopenia - GI prophylaxis - IV PPI - Nutrition - clear liquid diet - Preston catheter - not indicated at this time CODE STATUS - full code Admission justification - This patient will be admitted for inpatient services and is medically appropriate meeting medical necessity for inpatient admission as outlined in my documentation. I reasonably expect the patient will require inpatient services that span a period time over 2 midnights. I reasonably expect this patient to be discharged or transferred within 96 hours after admission to the [facility]. Disposition - I would anticipate discharge to inpatient alcohol treatment if he survives the hospital stay Kiran Sharma M.D.
[2018-07-24] MEDS ORDERED: Ondansetron 4 MG Tab.DIS PO PRN (18:04)
[2018-07-24] MEDS ORDERED: Pantoprazole 40 MG Vial IV SCH (18:04)
[2018-07-24] MEDS ORDERED: Ondansetron 4 MG/2 ML SDV IV PRN (18:04)
[2018-07-24] MEDS ORDERED: Magnesium Hydroxide 400 MG/5 ML Susp 30 ML Cup PO PRN (18:04)
[2018-07-24] MEDS ORDERED: LORazepam 1 MG Tab PO SCH (18:04)
[2018-07-24] MEDS: Potassium Chloride 20 MEQ, Lidocaine 1% 2 ML in Sodium Chloride 0.9% 100 ML IV SCH ×2 (19:48→22:00)
[2018-07-24] MEDS: Dextrose 5%-0.9% NaCl 1,000 ML IV SCH (19:58)
[2018-07-24] MEDS: LORazepam 2 MG/ML SDV IV SCH (20:29)
[2018-07-24] MEDS: Gabapentin 400 MG Cap PO SCH (20:41)
[2018-07-24] MEDS: Melatonin 3 MG Tab PO SCH (22:20)
[2018-07-25] MEDS: LORazepam 2 MG/ML SDV IV SCH ×3 (01:18→21:24)
[2018-07-25] MEDS: Dextrose 5%-0.9% NaCl 1,000 ML IV SCH ×3 (03:32→19:07)
[2018-07-25] MEDS ORDERED: Potassium Chloride 20 MEQ in Premix Bag 2 BAG IV ONE (05:59)
[2018-07-25] MEDS: Potassium Chloride 100 ML IV SCH ×2 (06:32→09:02)
[2018-07-25] MEDS ORDERED: Potassium Chloride 20 MEQ in Premix Bag 2 BAG IV SCH (07:00)
[2018-07-25] MEDS: LORazepam 2 MG/ML SDV IVPUSH PRN ×4 (07:34→17:58)
[2018-07-25] MEDS: Thiamine 100 MG Tab PO SCH (09:06)
[2018-07-25] MEDS: DULoxetine 30 MG Cap PO SCH (09:06)
[2018-07-25] MEDS: Nicotine 14 MG/24 Hr Patch TRDERM SCH (09:06)
[2018-07-25] MEDS: Folic Acid 1 MG Tab PO SCH (09:06)
[2018-07-25] MEDS: Gabapentin 400 MG Cap PO SCH ×3 (09:06→21:28)
--- NOTE | 2018-07-25 09:18 | PCM.PN ---
- General Info Date of Service: 07/25/18 Subjective Update: There were no acute events overnight but the patient did have difficulty with confusion and received several doses of lorazepam. He has continued to be tachycardic and his blood pressure has been acceptable. There've been no fevers. He is very lethargic this morning and is not able to provide any reliable history. Nursing reports that he sometimes thinks that he send ditch working and other times he's waiting for his mom to finish making breakfast. He appears comfortable. Bilirubin is slightly better today. - Review of Systems General: Denies: Fever Neurological: Reports: Confusion - Patient Data Vitals - Most Recent: Last Vital Signs Temp 37.2 C 07/25/18 07:53 Pulse 121 H 07/25/18 07:53 Resp 32 H 07/25/18 07:53 BP 112/82 07/25/18 07:53 Pulse Ox 94 L 07/25/18 07:53 Weight - Most Recent: 72.575 kg I&O - Last 24 Hours: Intake & Output 07/24/18 07/25/18 07/25/18 22:59 06:59 14:59 Intake Total 540 1896 Balance 540 1896 Lab Results Last 24 Hours: Laboratory Results - last 24 hr 07/24/18 07/24/18 07/24/18 Range/Units 16:54 16:54 16:54 WBC 4.5 (4.5-11.0) K/uL RBC 4.42 (4.30-5.90) M/uL Hgb 14.4 (12.0-15.0) g/dL Hct 38.3 L (40.0-54.0) % MCV 87 (80-98) fL MCH 33 H (27-31) pg MCHC 38 H (32-36) % Plt Count 50 L (150-400) K/uL Neut % (Auto) 72 H (36-66) % Lymph % (Auto) 22 L (24-44) % [place] % (Auto) 6 (2-6) % Eos % (Auto) 0 L (2-4) % Baso % (Auto) 0 (0-1) % PT (9.5-12.0) sec INR (0.80-1.20) Sodium 125 L (140-148) mmol/L Potassium 3.0 L (3.6-5.2) mmol/L Chloride 79 L (100-108) mmol/L Carbon Dioxide 27 (21-32) mmol/L Anion Gap 22.0 H (5.0-14.0) mmol/L BUN 8 D (7-18) mg/dL Creatinine 0.7 L (0.8-1.3) mg/dL Est Cr Clr Drug Dosing 151.20 mL/min Estimated GFR (MDRD) > 60 (>60) Glucose 119 H (74-106) mg/dL Calcium 9.5 (8.5-10.1) mg/dL Magnesium (1.8-2.4) mg/dL Total Bilirubin 14.5 H D (0.2-1.0) mg/dL AST 150 H (15-37) U/L ALT 114 H (12-78) U/L Alkaline Phosphatase 357 H (46-116) U/L Ammonia 39 H (11-32) mmol/L Total Protein 7.5 (6.4-8.2) g/dL Albumin 2.9 L (3.4-5.0) g/dL Globulin 4.6 H (2.3-3.5) g/dL Albumin/Globulin Ratio 0.6 L (1.2-2.2) Ethyl Alcohol mg/dL 07/24/18 07/25/18 07/25/18 Range/Units 16:54 05:06 05:06 WBC 3.7 L (4.5-11.0) K/uL RBC 3.64 L (4.30-5.90) M/uL Hgb 11.6 L D (12.0-15.0) g/dL Hct 31.8 L (40.0-54.0) % MCV 87 (80-98) fL MCH 32 H (27-31) pg MCHC 37 H (32-36) % Plt Count 39 L (150-400) K/uL Neut % (Auto) (36-66) % Lymph % (Auto) (24-44) % [place] % (Auto) (2-6) % Eos % (Auto) (2-4) % Baso % (Auto) (0-1) % PT 12.5 H (9.5-12.0) sec INR 1.15 (0.80-1.20) Sodium (140-148) mmol/L Potassium (3.6-5.2) mmol/L Chloride (100-108) mmol/L Carbon Dioxide (21-32) mmol/L Anion Gap (5.0-14.0) mmol/L BUN (7-18) mg/dL Creatinine (0.8-1.3) mg/dL Est Cr Clr Drug Dosing mL/min Estimated GFR (MDRD) (>60) Glucose (74-106) mg/dL Calcium (8.5-10.1) mg/dL Magnesium (1.8-2.4) mg/dL Total Bilirubin (0.2-1.0) mg/dL AST (15-37) U/L ALT (12-78) U/L Alkaline Phosphatase (46-116) U/L Ammonia (11-32) mmol/L Total Protein (6.4-8.2) g/dL Albumin (3.4-5.0) g/dL Globulin (2.3-3.5) g/dL Albumin/Globulin Ratio (1.2-2.2) Ethyl Alcohol 165 mg/dL 07/25/18 Range/Units 05:06 WBC (4.5-11.0) K/uL RBC (4.30-5.90) M/uL Hgb (12.0-15.0) g/dL Hct (40.0-54.0) % MCV (80-98) fL MCH (27-31) pg MCHC (32-36) % Plt Count (150-400) K/uL Neut % (Auto) (36-66) % Lymph % (Auto) (24-44) % [place] % (Auto) (2-6) % Eos % (Auto) (2-4) % Baso % (Auto) (0-1) % PT (9.5-12.0) sec INR (0.80-1.20) Sodium 127 L (140-148) mmol/L Potassium 2.9 L* (3.6-5.2) mmol/L Chloride 91 L (100-108) mmol/L Carbon Dioxide 27 (21-32) mmol/L Anion Gap 11.9 (5.0-14.0) mmol/L BUN 11 (7-18) mg/dL Creatinine 1.0 (0.8-1.3) mg/dL Est Cr Clr Drug Dosing 105.84 mL/min Estimated GFR (MDRD) > 60 (>60) Glucose 108 H (74-106) mg/dL Calcium 8.1 L (8.5-10.1) mg/dL Magnesium 1.9 (1.8-2.4) mg/dL Total Bilirubin 12.8 H (0.2-1.0) mg/dL AST 125 H (15-37) U/L ALT 80 H (12-78) U/L Alkaline Phosphatase 246 H (46-116) U/L Ammonia (11-32) mmol/L Total Protein 5.2 L (6.4-8.2) g/dL Albumin 2.1 L (3.4-5.0) g/dL Globulin 3.1 (2.3-3.5) g/dL Albumin/Globulin Ratio 0.7 L (1.2-2.2) Ethyl Alcohol mg/dL Med Orders - Current: Current Medications Duloxetine HCl (Cymbalta) 30 mg PO DAILY [facility] [place] Last Admin: 07/25/18 09:06 Dose: 30 mg Folic Acid (Folic Acid) 1 mg PO DAILY [facility] [place] Last Admin: 07/25/18 09:06 Dose: 1 mg Gabapentin (Neurontin) 400 mg PO TID [facility] [place] Last Admin: 07/25/18 09:06 Dose: 400 mg Haloperidol Lactate (Haldol) 2 mg IVPUSH Q4H PRN PRN Reason: Agitation Dextrose/Sodium Chloride (Dextrose 5%-Normal Saline) 1,000 mls @ 125 mls/hr IV ASDIRECTED [facility] Last Admin: 07/25/18 03:32 Dose: 125 mls/hr Potassium Chloride (Kcl 20 Meq In Water 100 Ml) 100 mls @ 50 mls/hr IV Q2H [facility] Stop: 07/25/18 10:59 Last Admin: 07/25/18 09:02 Dose: 50 mls/hr Ibuprofen (Motrin) 600 mg PO Q6H PRN PRN Reason: Pain/Fever Lorazepam (Ativan) 0 mg PO ASDIRECTED RUSS; Protocol Lorazepam (Ativan) 0 mg IV ASDIRECTED RUSS; Protocol Last Admin: 07/25/18 03:55 Dose: 2 mg Lorazepam (Ativan) 2 mg IVPUSH ASDIRECTED PRN PRN Reason: Seizures Last Admin: 07/25/18 09:16 Dose: 2 mg Magnesium Hydroxide (Milk Of Magnesia) 30 ml PO Q12H PRN PRN Reason: Constipation Melatonin (Melatonin) 9 mg PO BEDTIME [facility] [place] Last Admin: 07/24/18 22:20 Dose: Not Given Nicotine (Habitrol) 14 mg TRDERM DAILY [facility] [place] Last Admin: 07/25/18 09:06 Dose: 14 mg Ondansetron HCl (Zofran Odt) 4 mg PO Q6H PRN PRN Reason: Nausea able to take PO Ondansetron HCl (Zofran) 4 mg IV Q6H PRN PRN Reason: Nausea/Vomiting Pantoprazole Sodium (Protonix Iv) 40 mg IV Q24H [facility] [place] Senna/Docusate Sodium (Senna Plus) 1 tab PO BID PRN PRN Reason: Constipation Thiamine HCl (Vitamin B-1) 100 mg PO DAILY [facility] [place] Last Admin: 07/25/18 09:06 Dose: 100 mg Discontinued Medications Multivitamins/Minerals 10 ml/Thiamine HCl 100 mg/ Folic Acid 1 mg/ Magnesium Sulfate 3 gm/ Sodium Chloride 1,017.2 mls @ 1,000 mls/hr IV ASDIRECTED [facility] [place] Multivitamins/Minerals 10 ml/Thiamine HCl 100 mg/ Folic Acid 1 mg/ Magnesium Sulfate 3 gm/ Sodium Chloride 1,017.2 mls @ 500 mls/hr IV ASDIRECTED ONE Stop: 07/24/18 19:02 Last Admin: 07/24/18 17:03 Dose: 500 mls/hr Potassium Chloride 20 meq/Lidocaine HCl 2 ml/ Sodium Chloride 112 mls @ 50 mls/ hr IV Q2H [facility] [place] Stop: 07/24/18 22:03 Last Admin: 07/24/18 22:00 Dose: 50 mls/hr Potassium Chloride (Kcl 20 Meq In Water 100 Ml) Confirm Administered Dose 200 mls @ as directed .ROUTE .STK-MED ONE Stop: 07/24/18 19:43 Last Admin: 07/24/18 19:49 Dose: Not Given Potassium Chloride 20 meq/ (Premix) 0 mls @ 50 mls/hr IV ONETIME ONE Stop: 07/25/18 06:00 Lidocaine HCl (Xylocaine-Mpf 1%) 2 ml INJECT ONETIME ONE Stop: 07/25/18 06:02 Last Admin: 07/25/18 06:32 Dose: 2 ml Pantoprazole Sodium (Protonix Iv) 40 mg IV DAILY [facility] Last Admin: 07/24/18 19:52 Dose: 40 mg - Exam Quality Assessment: No: Supplemental Oxygen General: Mild Distress, Sedated. No: Alert, Oriented Lungs: Clear to Auscultation, Normal Respiratory Effort Cardiovascular: Regular Rhythm, Tachycardia GI/Abdominal Exam: Soft, Non-Tender, No Distention Extremities: No Pedal Edema. No: Increased Warmth Skin: Warm, Dry Psy/Mental Status: Anxious. No: Alert - Problem List & Annotations (1) Alcoholic hepatitis without ascites SNOMED Code(s): 200320806 Code(s): K70.10 - ALCOHOLIC HEPATITIS WITHOUT ASCITES Status: Acute Current Visit: No (2) Alcohol abuse SNOMED Code(s): 06718233 Code(s): F10.10 - ALCOHOL ABUSE, UNCOMPLICATED Status: Acute Current Visit: Yes (3) Hypokalemia SNOMED Code(s): 28336713 Code(s): E87.6 - HYPOKALEMIA Status: Resolved Current Visit: No (4) Tobacco dependence SNOMED Code(s): 03088489 Code(s): F17.200 - NICOTINE DEPENDENCE, UNSPECIFIED, UNCOMPLICATED Status: Chronic Current Visit: Yes - Problem List Review Problem List Initiated/Reviewed/Updated: Yes - My Orders Last 24 Hours: My Active Orders 07/24/18 17:47 Resuscitation Status Routine 07/24/18 18:04 Patient Status [ADT] Routine Antiembolic Devices [RC] .Routine Bedrest Bedside Commode [RC] ASDIRECTED CIWAA Assessment [RC] Q1H Cardiac Monitoring [RC] Q6H Height and Weight [RC] DAILY Intake and Output [RC] QSHIFT Notify Provider Vital Signs [RC] ASDIRECTED Notify Provider [RC] PRN Oxygen Therapy [RC] PRN Pulse Oximetry [RC] CONTINUOUS Up With Assistance [RC] ASDIRECTED Vital Signs [RC] Q1HR Dextrose 5%-0.9% NaCl [Dextrose 5%-Normal Saline] 1,000 ml IV ASDIRECTED Docusate Sodium/Sennosides [Senna Plus] 1 tab PO BID PRN Haloperidol Lactate [Haldol] 2 mg IVPUSH Q4H PRN Ibuprofen [Motrin] 600 mg PO Q6H PRN LORazepam [Ativan] 2 mg IVPUSH ASDIRECTED PRN LORazepam [Ativan] See Protocol IV ASDIRECTED LORazepam [Ativan] See Protocol PO ASDIRECTED Magnesium Hydroxide [Milk of Magnesia] 30 ml PO Q12H PRN Ondansetron [Zofran ODT] 4 mg PO Q6H PRN Ondansetron [Zofran] 4 mg IV Q6H PRN Antiembolic Hose [OM.PC] Routine Seizure Precautions [OM.PC] Routine VTE Pharmacological Contraindications [AST] Routine 07/24/18 21:00 Gabapentin [Neurontin] 400 mg PO TID Melatonin 9 mg PO BEDTIME 07/24/18 Dinner Clear Liquid Diet [DIET] 07/25/18 07:00 Potassium Chloride [KCL 20 MEQ in Water 100 ML] 100 ml IV Q2H 07/25/18 09:00 DULoxetine [Cymbalta] 30 mg PO DAILY Folic Acid 1 mg PO DAILY Nicotine [Habitrol] 14 mg TRDERM DAILY Thiamine [Vitamin B-1] 100 mg PO DAILY 07/25/18 13:00 POTASSIUM,K [CHEM] Timed 07/25/18 16:00 Pantoprazole [ProTONIX IV] 40 mg IV Q24H 07/26/18 05:00 CBC W/O DIFF,HEMOGRAM [HEME] Timed (1) COMPREHENSIVE METABOLIC PN,CMP [CHEM] Timed - Plan Plan:: ASSESSMENT AND PLAN - Alcoholic hepatitis - this occurs in the setting of long-standing and heavy alcohol use. The patient endorses drinking large quantities of alcohol daily since he was released from the hospital about 3 months ago. His bilirubin level has improved slightly overnight. Maddrey discriminant function is 15 suggesting that he would not benefit from steroids at this time. -Continue IV fluids -Repeat labs in the morning -Symptomatic management for pain or nausea Alcohol abuse - long-standing history of alcohol use. he is in full-blown alcohol withdrawal at this time and appears to be hallucinating. He has received multiple doses of medication to help manage his withdrawal. No seizures so far. -CIWAA protocol with lorazepam as indicated -Gabapentin 400 mg 3 times daily for 5 days then 200 mg 3 times daily for 5 days -Melatonin at bedtime -Petition court for commitment and alcohol treatment Hypokalemia - persistent hypokalemia and he is currently receiving IV replacement. -Recheck potassium this afternoon and replace as indicated -Recheck again in the morning Tobacco dependence - no interest in quitting at this time. -Nicotine patch Maintenance issues - - DVT prophylaxis - mechanical with severe thrombocytopenia - GI prophylaxis - IV PPI - Nutrition - clear liquid diet - Preston catheter - placed for strict intake and output monitoring in this critically ill patient Disposition - I would anticipate discharge to inpatient alcohol treatment if he survives the hospital stay Kiran Sharma M.D.
[2018-07-25] MEDS: Haloperidol Lactate 5 MG/ML SDV IVPUSH PRN ×2 (10:25→21:50)
[2018-07-25] MEDS: Potassium Chloride 20 MEQ, Lidocaine 1% 2 ML in Sodium Chloride 0.9% 100 ML IV SCH ×2 (14:57→17:11)
[2018-07-25] MEDS: Pantoprazole 40 MG Vial IV SCH (16:27)
[2018-07-25] MEDS: Melatonin 3 MG Tab PO SCH (21:27)
[2018-07-25] MEDS: Ibuprofen 600 MG Tab PO PRN (21:53)
[2018-07-26] MEDS: LORazepam 2 MG/ML SDV IV SCH ×4 (01:25→22:26)
[2018-07-26] MEDS: Haloperidol Lactate 5 MG/ML SDV IVPUSH PRN ×5 (02:25→20:27)
[2018-07-26] MEDS: Dextrose 5%-0.9% NaCl 1,000 ML IV SCH ×2 (03:14→10:23)
[2018-07-26] MEDS: Folic Acid 1 MG Tab PO SCH (08:25)
[2018-07-26] MEDS: Gabapentin 400 MG Cap PO SCH ×3 (08:26→20:26)
[2018-07-26] MEDS: Thiamine 100 MG Tab PO SCH (08:26)
[2018-07-26] MEDS: DULoxetine 30 MG Cap PO SCH (08:26)
[2018-07-26] MEDS: Nicotine 14 MG/24 Hr Patch TRDERM SCH (08:27)
[2018-07-26] MEDS: LORazepam 2 MG/ML SDV IVPUSH PRN ×4 (08:28→16:28)
--- NOTE | 2018-07-26 09:48 | PCM.PN ---
- General Info Date of Service: 07/26/18 Subjective Update: There were no acute events overnight. The patient remains very lethargic and is unable to provide any reliable history. He has received several doses of lorazepam and Haldol for agitation in the setting of alcohol withdrawal. Tachycardia has slowly decreased but he remains mildly tachycardic this morning. He has not had any fevers. Bilirubin is similar to the level obtained at the time of admission. Platelets are stable and there is no evidence for bleeding. Functional Status: Denies: Ambulating - Review of Systems General: Denies: Fever - Patient Data Vitals - Most Recent: Last Vital Signs Temp 35.9 C 07/26/18 08:00 Pulse 103 H 07/26/18 08:50 Resp 20 07/26/18 08:50 BP 102/63 07/26/18 08:50 Pulse Ox 96 07/26/18 08:50 Weight - Most Recent: 72.575 kg I&O - Last 24 Hours: Intake & Output 07/25/18 07/26/18 07/26/18 22:59 06:59 14:59 Intake Total 2086 1527 Output Total 1180 320 Balance 906 1207 Lab Results Last 24 Hours: Laboratory Results - last 24 hr 07/25/18 07/26/18 07/26/18 Range/Units 13:00 04:50 05:00 WBC 3.8 L (4.5-11.0) K/uL RBC 3.09 L (4.30-5.90) M/uL Hgb 10.1 L (12.0-15.0) g/dL Hct 28.1 L (40.0-54.0) % MCV 91 (80-98) fL MCH 33 H (27-31) pg MCHC 36 (32-36) % Plt Count 39 L (150-400) K/uL Sodium 136 L (140-148) mmol/L Potassium 3.3 L 3.3 L (3.6-5.2) mmol/L Chloride 102 (100-108) mmol/L Carbon Dioxide 28 (21-32) mmol/L Anion Gap 9.3 (5.0-14.0) mmol/L BUN 8 (7-18) mg/dL Creatinine 0.9 (0.8-1.3) mg/dL Est Cr Clr Drug Dosing 117.60 mL/min Estimated GFR (MDRD) > 60 (>60) Glucose 105 (74-106) mg/dL Calcium 8.4 L (8.5-10.1) mg/dL Total Bilirubin 14.4 H (0.2-1.0) mg/dL AST 82 H (15-37) U/L ALT 62 (12-78) U/L Alkaline Phosphatase 212 H (46-116) U/L Total Protein 4.7 L (6.4-8.2) g/dL Albumin 1.8 L (3.4-5.0) g/dL Globulin 2.9 (2.3-3.5) g/dL Albumin/Globulin Ratio 0.6 L (1.2-2.2) Med Orders - Current: Current Medications Duloxetine HCl (Cymbalta) 30 mg PO DAILY [facility] Last Admin: 07/26/18 08:26 Dose: 30 mg Folic Acid (Folic Acid) 1 mg PO DAILY [facility] Last Admin: 07/26/18 08:25 Dose: 1 mg Gabapentin (Neurontin) 400 mg PO TID [facility] Last Admin: 07/26/18 08:26 Dose: 400 mg Haloperidol Lactate (Haldol) 2 mg IVPUSH Q4H PRN PRN Reason: Agitation Last Admin: 07/26/18 08:27 Dose: 2 mg Dextrose/Sodium Chloride (Dextrose 5%-Normal Saline) 1,000 mls @ 125 mls/hr IV ASDIRECTED [facility] Last Admin: 07/26/18 03:14 Dose: 125 mls/hr Potassium Chloride 20 meq/Lidocaine HCl 2 ml/ Sodium Chloride 112 mls @ 56 mls/ hr IV Q2H [facility] Stop: 07/26/18 13:29 Ibuprofen (Motrin) 600 mg PO Q6H PRN PRN Reason: Pain/Fever Last Admin: 07/25/18 21:53 Dose: 600 mg Lorazepam (Ativan) 0 mg PO ASDIRECTED RUSS; Protocol Lorazepam (Ativan) 0 mg IV ASDIRECTED RUSS; Protocol Last Admin: 07/26/18 04:54 Dose: 2 mg Lorazepam (Ativan) 2 mg IVPUSH ASDIRECTED PRN PRN Reason: Seizures Last Admin: 07/26/18 08:28 Dose: 2 mg Magnesium Hydroxide (Milk Of Magnesia) 30 ml PO Q12H PRN PRN Reason: Constipation Melatonin (Melatonin) 9 mg PO BEDTIME [facility] Last Admin: 07/25/18 21:27 Dose: 9 mg Nicotine (Habitrol) 14 mg TRDERM DAILY [facility] Last Admin: 07/26/18 08:27 Dose: 14 mg Ondansetron HCl (Zofran Odt) 4 mg PO Q6H PRN PRN Reason: Nausea able to take PO Ondansetron HCl (Zofran) 4 mg IV Q6H PRN PRN Reason: Nausea/Vomiting Pantoprazole Sodium (Protonix Iv) 40 mg IV Q24H [facility] Last Admin: 07/25/18 16:27 Dose: 40 mg Senna/Docusate Sodium (Senna Plus) 1 tab PO BID PRN PRN Reason: Constipation Thiamine HCl (Vitamin B-1) 100 mg PO DAILY [facility] Last Admin: 07/26/18 08:26 Dose: 100 mg Discontinued Medications Multivitamins/Minerals 10 ml/Thiamine HCl 100 mg/ Folic Acid 1 mg/ Magnesium Sulfate 3 gm/ Sodium Chloride 1,017.2 mls @ 1,000 mls/hr IV ASDIRECTED [facility] Multivitamins/Minerals 10 ml/Thiamine HCl 100 mg/ Folic Acid 1 mg/ Magnesium Sulfate 3 gm/ Sodium Chloride 1,017.2 mls @ 500 mls/hr IV ASDIRECTED ONE Stop: 07/24/18 19:02 Last Admin: 07/24/18 17:03 Dose: 500 mls/hr Potassium Chloride 20 meq/Lidocaine HCl 2 ml/ Sodium Chloride 112 mls @ 50 mls/ hr IV Q2H [facility] Stop: 07/24/18 22:03 Last Admin: 07/24/18 22:00 Dose: 50 mls/hr Potassium Chloride (Kcl 20 Meq In Water 100 Ml) Confirm Administered Dose 200 mls @ as directed .ROUTE .STK-MED ONE Stop: 07/24/18 19:43 Last Admin: 07/24/18 19:49 Dose: Not Given Potassium Chloride 20 meq/ (Premix) 0 mls @ 50 mls/hr IV ONETIME ONE Stop: 07/25/18 06:00 Last Admin: 07/25/18 10:06 Dose: Not Given Potassium Chloride (Kcl 20 Meq In Water 100 Ml) 100 mls @ 50 mls/hr IV Q2H [facility] Stop: 07/25/18 10:59 Last Admin: 07/25/18 09:02 Dose: 50 mls/hr Potassium Chloride 20 meq/Lidocaine HCl 2 ml/ Sodium Chloride 112 mls @ 50 mls/ hr IV Q2H [facility] Stop: 07/25/18 18:29 Last Admin: 07/25/18 17:11 Dose: 50 mls/hr Lidocaine HCl (Xylocaine-Mpf 1%) 2 ml INJECT ONETIME ONE Stop: 07/25/18 06:02 Last Admin: 07/25/18 06:32 Dose: 2 ml Pantoprazole Sodium (Protonix Iv) 40 mg IV DAILY [facility] Last Admin: 07/24/18 19:52 Dose: 40 mg - Exam Quality Assessment: No: Supplemental Oxygen General: Alert, Oriented, Cooperative, No Acute Distress Neck: Supple Lungs: Clear to Auscultation, Normal Respiratory Effort Cardiovascular: Regular Rhythm, Tachycardia GI/Abdominal Exam: Soft, No Distention, Abnormal Bowel Sounds (hypoactive) Extremities: No Pedal Edema. No: Increased Warmth Skin: Warm, Dry Psy/Mental Status: No: Alert, Agitated - Problem List & Annotations (1) Alcoholic hepatitis without ascites SNOMED Code(s): 344046842 Code(s): K70.10 - ALCOHOLIC HEPATITIS WITHOUT ASCITES Status: Acute Current Visit: No (2) Alcohol abuse SNOMED Code(s): 07767471 Code(s): F10.10 - ALCOHOL ABUSE, UNCOMPLICATED Status: Acute Current Visit: Yes (3) Hypokalemia SNOMED Code(s): 71873680 Code(s): E87.6 - HYPOKALEMIA Status: Resolved Current Visit: No (4) Tobacco dependence SNOMED Code(s): 41051428 Code(s): F17.200 - NICOTINE DEPENDENCE, UNSPECIFIED, UNCOMPLICATED Status: Chronic Current Visit: Yes - Problem List Review Problem List Initiated/Reviewed/Updated: Yes - My Orders Last 24 Hours: My Active Orders 07/25/18 09:00 DULoxetine [Cymbalta] 30 mg PO DAILY Folic Acid 1 mg PO DAILY Nicotine [Habitrol] 14 mg TRDERM DAILY Thiamine [Vitamin B-1] 100 mg PO DAILY 07/25/18 12:03 Urinary Catheter Assessment [RC] ASDIRECTED 07/25/18 12:15 Preston Catheter Insertion [Insert Urinary Catheter] [OM.PC] Q24H 07/25/18 16:00 Pantoprazole [ProTONIX IV] 40 mg IV Q24H 07/26/18 09:30 Potassium Chloride 20 meq Lidocaine 1% [Xylocaine 1%] 2 ml Sodium Chloride 0.9 % [Normal Saline] 100 ml IV Q2H 07/26/18 14:00 POTASSIUM,K [CHEM] Timed 07/27/18 05:00 BASIC METABOLIC PANEL,BMP [CHEM] Timed CBC W/O DIFF,HEMOGRAM [HEME] Timed (1) - Plan Plan:: ASSESSMENT AND PLAN - Alcoholic hepatitis - bilirubin essentially stable the past couple of days. AST and ALT are improving. Patient does not appear to be having any pain. -Continue gentle IV fluids -Repeat labs in the morning -Symptomatic management for pain or nausea Alcohol abuse - long-standing history of alcohol use. He continues to be in full -blown alcohol withdrawal with delirium. He is lethargic this morning. He continues to require both lorazepam and Haldol for intermittent agitation. -CIWAA protocol with lorazepam as indicated -Gabapentin 400 mg 3 times daily for 5 days then 200 mg 3 times daily for 5 days -Haldol for breakthrough agitation -Melatonin at bedtime -Petition court for commitment and alcohol treatment Hypokalemia - potassium level still on the low side and will require additional supplementation. -Recheck potassium this afternoon and replace as indicated -Recheck again in the morning Tobacco dependence - no interest in quitting at this time. -Nicotine patch Maintenance issues - - DVT prophylaxis - mechanical with severe thrombocytopenia - GI prophylaxis - IV PPI - Nutrition - clear liquid diet - Preston catheter - placed for strict intake and output monitoring in this critically ill patient Disposition - I would anticipate discharge to inpatient alcohol treatment if he survives the hospital stay Kiran Sharma M.D.
[2018-07-26] MEDS: Potassium Chloride 20 MEQ, Lidocaine 1% 2 ML in Sodium Chloride 0.9% 100 ML IV SCH ×2 (10:23→12:31)
[2018-07-26] MEDS: D5 1/2 NS w/ 20 mEq/L KCl 1,000 ML IV SCH (14:45)
[2018-07-26] MEDS: Pantoprazole 40 MG Vial IV SCH (16:11)
[2018-07-26] MEDS: Melatonin 3 MG Tab PO SCH (20:26)
[2018-07-27] MEDS: Haloperidol Lactate 5 MG/ML SDV IVPUSH PRN ×5 (00:27→21:03)
[2018-07-27] MEDS: LORazepam 2 MG/ML SDV IV SCH ×4 (01:14→21:57)
[2018-07-27] MEDS: D5 1/2 NS w/ 20 mEq/L KCl 1,000 ML IV SCH ×2 (03:56→21:01)
[2018-07-27] MEDS: Nicotine 14 MG/24 Hr Patch TRDERM SCH (08:28)
[2018-07-27] MEDS: Folic Acid 1 MG Tab PO SCH (08:30)
[2018-07-27] MEDS: Gabapentin 400 MG Cap PO SCH ×4 (08:30→20:39)
[2018-07-27] MEDS: DULoxetine 30 MG Cap PO SCH (08:30)
[2018-07-27] MEDS: Thiamine 100 MG Tab PO SCH (08:30)
--- NOTE | 2018-07-27 08:53 | PCM.PN ---
- General Info Date of Service: 07/27/18 Subjective Update: There were no acute events overnight. Patient continues to experience significant alcohol withdrawal with tremor, confusion and hallucinations. He is very weak. Even trying to eat requires a great deal of effort and time. He has been alert enough to swallow pills and eat a little bit of breakfast today. Tachycardia is slowly improving. Potassium level is normal. Functional Status: Reports: Tolerating Diet - Review of Systems General: Denies: Fever Neurological: Reports: Confusion, Tremors - Patient Data Vitals - Most Recent: Last Vital Signs Temp 36.4 C 07/27/18 04:00 Pulse 120 H 07/27/18 07:00 Resp 24 H 07/27/18 07:00 BP 113/74 07/27/18 07:00 Pulse Ox 98 07/27/18 07:00 Weight - Most Recent: 72.575 kg I&O - Last 24 Hours: Intake & Output 07/26/18 07/27/18 07/27/18 22:59 06:59 14:59 Intake Total 1753 1273 Output Total 440 325 Balance 1313 948 Lab Results Last 24 Hours: Laboratory Results - last 24 hr 07/26/18 07/27/18 07/27/18 Range/Units 14:00 05:00 05:00 WBC 4.0 L (4.5-11.0) K/uL RBC 3.10 L (4.30-5.90) M/uL Hgb 10.1 L (12.0-15.0) g/dL Hct 28.3 L (40.0-54.0) % MCV 91 (80-98) fL MCH 33 H (27-31) pg MCHC 36 (32-36) % Plt Count 48 L (150-400) K/uL Sodium 137 L (140-148) mmol/L Potassium 4.0 3.6 (3.6-5.2) mmol/L Chloride 102 (100-108) mmol/L Carbon Dioxide 28 (21-32) mmol/L Anion Gap 10.6 (5.0-14.0) mmol/L BUN 7 (7-18) mg/dL Creatinine 0.7 L (0.8-1.3) mg/dL Est Cr Clr Drug Dosing 151.20 mL/min Estimated GFR (MDRD) > 60 (>60) Glucose 87 (74-106) mg/dL Calcium 8.7 (8.5-10.1) mg/dL Med Orders - Current: Current Medications Duloxetine HCl (Cymbalta) 30 mg PO DAILY [facility] Last Admin: 07/27/18 08:30 Dose: 30 mg Folic Acid (Folic Acid) 1 mg PO DAILY [facility] Last Admin: 07/27/18 08:30 Dose: 1 mg Gabapentin (Neurontin) 400 mg PO TID [facility] Last Admin: 07/27/18 08:30 Dose: 400 mg Haloperidol Lactate (Haldol) 2 mg IVPUSH Q4H PRN PRN Reason: Agitation Last Admin: 07/27/18 04:48 Dose: 2 mg Potassium Chloride/Dextrose/Sod Cl (D5 1/2 Ns W/ 20 Meq/L Kcl) 1,000 mls @ 50 mls/hr IV ASDIRECTED [facility] Ibuprofen (Motrin) 600 mg PO Q6H PRN PRN Reason: Pain/Fever Last Admin: 07/25/18 21:53 Dose: 600 mg Lorazepam (Ativan) 0 mg PO ASDIRECTED [facility]; Protocol Lorazepam (Ativan) 0 mg IV ASDIRECTED [facility]; Protocol Last Admin: 07/27/18 02:56 Dose: 2 mg Lorazepam (Ativan) 2 mg IVPUSH ASDIRECTED PRN PRN Reason: Seizures Last Admin: 07/26/18 16:28 Dose: 2 mg Magnesium Hydroxide (Milk Of Magnesia) 30 ml PO Q12H PRN PRN Reason: Constipation Melatonin (Melatonin) 9 mg PO BEDTIME [facility] Last Admin: 07/26/18 20:26 Dose: 9 mg Nicotine (Habitrol) 14 mg TRDERM DAILY [facility] Last Admin: 07/27/18 08:28 Dose: 14 mg Ondansetron HCl (Zofran Odt) 4 mg PO Q6H PRN PRN Reason: Nausea able to take PO Ondansetron HCl (Zofran) 4 mg IV Q6H PRN PRN Reason: Nausea/Vomiting Pantoprazole Sodium (Protonix Iv) 40 mg IV Q24H [facility] Last Admin: 07/26/18 16:11 Dose: 40 mg Senna/Docusate Sodium (Senna Plus) 1 tab PO BID PRN PRN Reason: Constipation Thiamine HCl (Vitamin B-1) 100 mg PO DAILY [facility] Last Admin: 07/27/18 08:30 Dose: 100 mg Discontinued Medications Multivitamins/Minerals 10 ml/Thiamine HCl 100 mg/ Folic Acid 1 mg/ Magnesium Sulfate 3 gm/ Sodium Chloride 1,017.2 mls @ 1,000 mls/hr IV ASDIRECTED [facility] Multivitamins/Minerals 10 ml/Thiamine HCl 100 mg/ Folic Acid 1 mg/ Magnesium Sulfate 3 gm/ Sodium Chloride 1,017.2 mls @ 500 mls/hr IV ASDIRECTED ONE Stop: 07/24/18 19:02 Last Admin: 07/24/18 17:03 Dose: 500 mls/hr Dextrose/Sodium Chloride (Dextrose 5%-Normal Saline) 1,000 mls @ 125 mls/hr IV ASDIRECTED [facility] Last Admin: 07/26/18 10:23 Dose: 125 mls/hr Potassium Chloride 20 meq/Lidocaine HCl 2 ml/ Sodium Chloride 112 mls @ 50 mls/ hr IV Q2H [facility] Stop: 07/24/18 22:03 Last Admin: 07/24/18 22:00 Dose: 50 mls/hr Potassium Chloride (Kcl 20 Meq In Water 100 Ml) Confirm Administered Dose 200 mls @ as directed .ROUTE .STK-MED ONE Stop: 07/24/18 19:43 Last Admin: 07/24/18 19:49 Dose: Not Given Potassium Chloride 20 meq/ (Premix) 0 mls @ 50 mls/hr IV ONETIME ONE Stop: 07/25/18 06:00 Last Admin: 07/25/18 10:06 Dose: Not Given Potassium Chloride (Kcl 20 Meq In Water 100 Ml) 100 mls @ 50 mls/hr IV Q2H [facility] Stop: 07/25/18 10:59 Last Admin: 07/25/18 09:02 Dose: 50 mls/hr Potassium Chloride 20 meq/Lidocaine HCl 2 ml/ Sodium Chloride 112 mls @ 50 mls/ hr IV Q2H [facility] Stop: 07/25/18 18:29 Last Admin: 07/25/18 17:11 Dose: 50 mls/hr Potassium Chloride 20 meq/Lidocaine HCl 2 ml/ Sodium Chloride 112 mls @ 56 mls/ hr IV Q2H [facility] Stop: 07/26/18 13:29 Last Admin: 07/26/18 12:31 Dose: 56 mls/hr Potassium Chloride/Dextrose/Sod Cl (D5 1/2 Ns W/ 20 Meq/L Kcl) 1,000 mls @ 75 mls/hr IV ASDIRECTED [facility] Last Admin: 07/27/18 03:56 Dose: 75 mls/hr Lidocaine HCl (Xylocaine-Mpf 1%) 2 ml INJECT ONETIME ONE Stop: 07/25/18 06:02 Last Admin: 07/25/18 06:32 Dose: 2 ml Pantoprazole Sodium (Protonix Iv) 40 mg IV DAILY [facility] Last Admin: 07/24/18 19:52 Dose: 40 mg - Exam Quality Assessment: No: Supplemental Oxygen General: Alert, Cooperative, Mild Distress. No: Oriented HEENT: Pupils Equal Lungs: Clear to Auscultation, Normal Respiratory Effort Cardiovascular: Regular Rhythm, Tachycardia GI/Abdominal Exam: Soft, Non-Tender, No Distention Extremities: No Pedal Edema. No: Increased Warmth Skin: Warm, Dry Psy/Mental Status: Alert, Anxious - Problem List & Annotations (1) Alcoholic hepatitis without ascites SNOMED Code(s): 778428721 Code(s): K70.10 - ALCOHOLIC HEPATITIS WITHOUT ASCITES Status: Acute Current Visit: No (2) Alcohol abuse SNOMED Code(s): 66456593 Code(s): F10.10 - ALCOHOL ABUSE, UNCOMPLICATED Status: Acute Current Visit: Yes (3) Hypokalemia SNOMED Code(s): 15159431 Code(s): E87.6 - HYPOKALEMIA Status: Resolved Current Visit: No (4) Tobacco dependence SNOMED Code(s): 35441224 Code(s): F17.200 - NICOTINE DEPENDENCE, UNSPECIFIED, UNCOMPLICATED Status: Chronic Current Visit: Yes - Problem List Review Problem List Initiated/Reviewed/Updated: Yes - My Orders Last 24 Hours: My Active Orders 07/27/18 09:00 D5 1/2 NS w/ 20 mEq/L KCl 1,000 ml IV ASDIRECTED 07/27/18 12:15 Preston Catheter Insertion [Insert Urinary Catheter] [OM.PC] Q24H 07/27/18 Lunch Regular Diet [DIET] 07/28/18 05:00 CBC W/O DIFF,HEMOGRAM [HEME] Timed (1) COMPREHENSIVE METABOLIC PN,CMP [CHEM] Timed - Plan Plan:: ASSESSMENT AND PLAN - Alcoholic hepatitis - bilirubin essentially stable the past couple of days. AST and ALT have been improving. Patient does not appear to be having any pain. -Continue gentle IV fluids -Repeat liver labs in the morning -Symptomatic management for pain or nausea Alcohol abuse - long-standing history of alcohol use. He continues to be in full -blown alcohol withdrawal with delirium. He is still lethargic but more alert today. Very tremulous, confused and hallucinating. -CIWAA protocol with lorazepam as indicated -Gabapentin 400 mg 3 times daily for 5 days then 200 mg 3 times daily for 5 days -Haldol for breakthrough agitation -Melatonin at bedtime -Petition court for commitment and alcohol treatment Hypokalemia - potassium level has improved with supplementation. -Recheck again in the morning Tobacco dependence - no interest in quitting at this time. -Nicotine patch Maintenance issues - - DVT prophylaxis - mechanical with severe thrombocytopenia - GI prophylaxis - PPI - Nutrition - regular diet - Preston catheter - placed for strict intake and output monitoring in this critically ill patient Disposition - I would anticipate discharge to inpatient alcohol treatment if he survives the hospital stay Kiran Sharma M.D.
[2018-07-27] MEDS: Pantoprazole 40 MG Tab.CR PO SCH (10:59)
[2018-07-27] MEDS: LORazepam 2 MG/ML SDV IVPUSH PRN ×3 (11:02→17:59)
[2018-07-27] MEDS: Melatonin 3 MG Tab PO SCH ×2 (20:36→20:38)
[2018-07-28] MEDS: LORazepam 2 MG/ML SDV IV SCH ×3 (00:20→08:13)
[2018-07-28] MEDS: Haloperidol Lactate 5 MG/ML SDV IVPUSH PRN (01:45)
[2018-07-28] MEDS: Ibuprofen 600 MG Tab PO PRN (07:35)
[2018-07-28] MEDS: Pantoprazole 40 MG Tab.CR PO SCH (07:35)
[2018-07-28] MEDS: Nicotine 14 MG/24 Hr Patch TRDERM SCH (08:14)
[2018-07-28] MEDS: Folic Acid 1 MG Tab PO SCH (08:14)
[2018-07-28] MEDS: Thiamine 100 MG Tab PO SCH (08:14)
[2018-07-28] MEDS: Gabapentin 400 MG Cap PO SCH ×3 (08:14→20:26)
[2018-07-28] MEDS: DULoxetine 30 MG Cap PO SCH (08:14)
--- NOTE | 2018-07-28 08:56 | PCM.PN ---
- General Info Date of Service: 07/28/18 Subjective Update: There were no acute events overnight. The patient remains very lethargic and provides no usable history this morning. He continues to be in alcohol withdrawal and has been receiving lorazepam for symptoms. He remains mildly tachycardic. Blood pressures have been stable. Urine output has been good. Bilirubin is slightly better today. Platelets remain low but are improving. - Review of Systems General: Denies: Fever - Patient Data Vitals - Most Recent: Last Vital Signs Temp 37.0 C 07/28/18 08:00 Pulse 130 H 07/28/18 08:00 Resp 22 H 07/28/18 08:00 BP 109/73 07/28/18 08:00 Pulse Ox 99 07/28/18 08:00 Weight - Most Recent: 72.575 kg I&O - Last 24 Hours: Intake & Output 07/27/18 07/28/18 07/28/18 22:59 06:59 14:59 Intake Total 400 973 Output Total 710 700 Balance -310 273 Lab Results Last 24 Hours: Laboratory Results - last 24 hr 07/28/18 07/28/18 Range/Units 05:47 05:47 WBC 4.3 L (4.5-11.0) K/uL RBC 3.05 L (4.30-5.90) M/uL Hgb 9.9 L (12.0-15.0) g/dL Hct 28.2 L (40.0-54.0) % MCV 93 (80-98) fL MCH 33 H (27-31) pg MCHC 35 (32-36) % Plt Count 61 L (150-400) K/uL Sodium 138 L (140-148) mmol/L Potassium 3.6 (3.6-5.2) mmol/L Chloride 102 (100-108) mmol/L Carbon Dioxide 29 (21-32) mmol/L Anion Gap 10.6 (5.0-14.0) mmol/L BUN 5 L (7-18) mg/dL Creatinine 0.6 L (0.8-1.3) mg/dL Est Cr Clr Drug Dosing 176.40 mL/min Estimated GFR (MDRD) > 60 (>60) Glucose 87 (74-106) mg/dL Calcium 8.5 (8.5-10.1) mg/dL Total Bilirubin 11.5 H (0.2-1.0) mg/dL AST 64 H (15-37) U/L ALT 60 (12-78) U/L Alkaline Phosphatase 205 H (46-116) U/L Total Protein 5.0 L (6.4-8.2) g/dL Albumin 1.8 L (3.4-5.0) g/dL Globulin 3.2 (2.3-3.5) g/dL Albumin/Globulin Ratio 0.6 L (1.2-2.2) Med Orders - Current: Current Medications Duloxetine HCl (Cymbalta) 30 mg PO DAILY [facility] Last Admin: 07/28/18 08:14 Dose: 30 mg Folic Acid (Folic Acid) 1 mg PO DAILY [facility] Last Admin: 07/28/18 08:14 Dose: 1 mg Gabapentin (Neurontin) 400 mg PO TID [facility] Last Admin: 07/28/18 08:14 Dose: 400 mg Haloperidol Lactate (Haldol) 2 mg IVPUSH Q4H PRN PRN Reason: Agitation Last Admin: 07/28/18 01:45 Dose: 2 mg Potassium Chloride/Dextrose/Sod Cl (D5 1/2 Ns W/ 20 Meq/L Kcl) 1,000 mls @ 50 mls/hr IV ASDIRECTED [facility] Last Admin: 07/27/18 21:01 Dose: 50 mls/hr Potassium Chloride 20 meq/Lidocaine HCl 2 ml/ Sodium Chloride 112 mls @ 50 mls/ hr IV Q2H [facility] Stop: 07/28/18 13:59 Ibuprofen (Motrin) 600 mg PO Q6H PRN PRN Reason: Pain/Fever Last Admin: 07/28/18 07:35 Dose: 600 mg Lorazepam (Ativan) 0 mg PO ASDIRECTED [facility]; Protocol Lorazepam (Ativan) 0 mg IV ASDIRECTED [facility]; Protocol Last Admin: 07/28/18 08:13 Dose: 2 mg Lorazepam (Ativan) 2 mg IVPUSH ASDIRECTED PRN PRN Reason: Seizures Last Admin: 07/27/18 17:59 Dose: 2 mg Magnesium Hydroxide (Milk Of Magnesia) 30 ml PO Q12H PRN PRN Reason: Constipation Melatonin (Melatonin) 9 mg PO BEDTIME [facility] Last Admin: 07/27/18 20:38 Dose: Not Given Nicotine (Habitrol) 14 mg TRDERM DAILY [facility] Last Admin: 07/28/18 08:14 Dose: 14 mg Ondansetron HCl (Zofran Odt) 4 mg PO Q6H PRN PRN Reason: Nausea able to take PO Ondansetron HCl (Zofran) 4 mg IV Q6H PRN PRN Reason: Nausea/Vomiting Pantoprazole Sodium (Protonix) 40 mg PO ACBREAKFAST [facility] Last Admin: 07/28/18 07:35 Dose: 40 mg Senna/Docusate Sodium (Senna Plus) 1 tab PO BID PRN PRN Reason: Constipation Thiamine HCl (Vitamin B-1) 100 mg PO DAILY [facility] Last Admin: 07/28/18 08:14 Dose: 100 mg Discontinued Medications Multivitamins/Minerals 10 ml/Thiamine HCl 100 mg/ Folic Acid 1 mg/ Magnesium Sulfate 3 gm/ Sodium Chloride 1,017.2 mls @ 1,000 mls/hr IV ASDIRECTED [facility] Multivitamins/Minerals 10 ml/Thiamine HCl 100 mg/ Folic Acid 1 mg/ Magnesium Sulfate 3 gm/ Sodium Chloride 1,017.2 mls @ 500 mls/hr IV ASDIRECTED ONE Stop: 07/24/18 19:02 Last Admin: 07/24/18 17:03 Dose: 500 mls/hr Dextrose/Sodium Chloride (Dextrose 5%-Normal Saline) 1,000 mls @ 125 mls/hr IV ASDIRECTED [facility] Last Admin: 07/26/18 10:23 Dose: 125 mls/hr Potassium Chloride 20 meq/Lidocaine HCl 2 ml/ Sodium Chloride 112 mls @ 50 mls/ hr IV Q2H [facility] Stop: 07/24/18 22:03 Last Admin: 07/24/18 22:00 Dose: 50 mls/hr Potassium Chloride (Kcl 20 Meq In Water 100 Ml) Confirm Administered Dose 200 mls @ as directed .ROUTE .STK-MED ONE Stop: 07/24/18 19:43 Last Admin: 07/24/18 19:49 Dose: Not Given Potassium Chloride 20 meq/ (Premix) 0 mls @ 50 mls/hr IV ONETIME ONE Stop: 07/25/18 06:00 Last Admin: 07/25/18 10:06 Dose: Not Given Potassium Chloride (Kcl 20 Meq In Water 100 Ml) 100 mls @ 50 mls/hr IV Q2H [facility] Stop: 07/25/18 10:59 Last Admin: 07/25/18 09:02 Dose: 50 mls/hr Potassium Chloride 20 meq/Lidocaine HCl 2 ml/ Sodium Chloride 112 mls @ 50 mls/ hr IV Q2H [facility] Stop: 07/25/18 18:29 Last Admin: 07/25/18 17:11 Dose: 50 mls/hr Potassium Chloride 20 meq/Lidocaine HCl 2 ml/ Sodium Chloride 112 mls @ 56 mls/ hr IV Q2H [facility] Stop: 07/26/18 13:29 Last Admin: 07/26/18 12:31 Dose: 56 mls/hr Potassium Chloride/Dextrose/Sod Cl (D5 1/2 Ns W/ 20 Meq/L Kcl) 1,000 mls @ 75 mls/hr IV ASDIRECTED [facility] Last Admin: 07/27/18 03:56 Dose: 75 mls/hr Lidocaine HCl (Xylocaine-Mpf 1%) 2 ml INJECT ONETIME ONE Stop: 07/25/18 06:02 Last Admin: 07/25/18 06:32 Dose: 2 ml Pantoprazole Sodium (Protonix Iv) 40 mg IV DAILY [facility] Last Admin: 07/24/18 19:52 Dose: 40 mg Pantoprazole Sodium (Protonix Iv) 40 mg IV Q24H [facility] Last Admin: 07/26/18 16:11 Dose: 40 mg - Exam Quality Assessment: No: Supplemental Oxygen General: No Acute Distress, Lethargic. No: Alert Lungs: Clear to Auscultation, Normal Respiratory Effort Cardiovascular: Regular Rhythm, Tachycardia GI/Abdominal Exam: Soft, No Distention Extremities: No Pedal Edema. No: Increased Warmth Skin: Warm, Dry Psy/Mental Status: No: Alert, Agitated - Problem List & Annotations (1) Alcoholic hepatitis without ascites SNOMED Code(s): 548639912 Code(s): K70.10 - ALCOHOLIC HEPATITIS WITHOUT ASCITES Status: Acute Current Visit: No (2) Alcohol abuse SNOMED Code(s): 20644214 Code(s): F10.10 - ALCOHOL ABUSE, UNCOMPLICATED Status: Acute Current Visit: Yes (3) Hypokalemia SNOMED Code(s): 24774505 Code(s): E87.6 - HYPOKALEMIA Status: Resolved Current Visit: No (4) Tobacco dependence SNOMED Code(s): 62417184 Code(s): F17.200 - NICOTINE DEPENDENCE, UNSPECIFIED, UNCOMPLICATED Status: Chronic Current Visit: Yes - Problem List Review Problem List Initiated/Reviewed/Updated: Yes - My Orders Last 24 Hours: My Active Orders 07/27/18 09:00 D5 1/2 NS w/ 20 mEq/L KCl 1,000 ml IV ASDIRECTED 07/27/18 11:30 Pantoprazole [ProTONIX] 40 mg PO ACBREAKFAST 07/27/18 12:15 Preston Catheter Insertion [Insert Urinary Catheter] [OM.PC] Q24H 07/27/18 Lunch Regular Diet [DIET] 07/28/18 10:00 Potassium Chloride 20 meq Lidocaine 1% [Xylocaine 1%] 2 ml Sodium Chloride 0.9 % [Normal Saline] 100 ml IV Q2H 07/29/18 05:00 CBC W/O DIFF,HEMOGRAM [HEME] Timed (1) COMPREHENSIVE METABOLIC PN,CMP [CHEM] Timed INR,PT,PROTHROMBIN TIME [COAG] Timed - Plan Plan:: ASSESSMENT AND PLAN - Alcoholic hepatitis - bilirubin slightly better today and AST and ALTs are both improving. No abdominal pain. -Continue gentle IV fluids -Repeat liver labs in the morning -Symptomatic management for pain or nausea Alcohol abuse - long-standing history of alcohol use. He continues to be in full -blown alcohol withdrawal with delirium. He remains very lethargic. -CIWAA protocol with lorazepam as indicated -Gabapentin 400 mg 3 times daily for 5 days then 200 mg 3 times daily for 5 days (start on 07/29) -Haldol for breakthrough agitation -Melatonin at bedtime -Petition court for commitment and alcohol treatment Hypokalemia - potassium level has improved with supplementation but is on the low side of normal. -40 mEq today -Recheck again in the morning Tobacco dependence - no interest in quitting at this time. -Nicotine patch Maintenance issues - - DVT prophylaxis - mechanical with severe thrombocytopenia - GI prophylaxis - PPI - Nutrition - regular diet - Preston catheter - placed for strict intake and output monitoring in this critically ill patient, I anticipate removal in the next day or 2 Disposition - I would anticipate discharge to inpatient alcohol treatment after the hospital stay Kiran Sharma M.D.
[2018-07-28] MEDS: LORazepam 2 MG/ML SDV IVPUSH PRN (09:00)
[2018-07-28] MEDS: Potassium Chloride 20 MEQ, Lidocaine 1% 2 ML in Sodium Chloride 0.9% 100 ML IV SCH ×2 (09:46→12:23)
[2018-07-28] MEDS ORDERED: Sodium Chloride 0.9% 500 ML IV ONE (18:37)
[2018-07-28] MEDS: Melatonin 3 MG Tab PO SCH (20:26)
[2018-07-28] MEDS: D5 1/2 NS w/ 20 mEq/L KCl 1,000 ML IV SCH (22:47)
--- NOTE | 2018-07-29 09:02 | PCM.PN ---
- General Info Date of Service: 07/29/18 Subjective Update: There were no acute events overnight. The patient is somnolent again this morning and I'm unable to get any usable history out of him. He has not had lorazepam since yesterday morning. He has been more alert and interactive when talking to the nurses. He remains extremely weak and requires an assist device to get from the bed to the chair. Bilirubin is slightly lower at 10 today. He has not had any fevers. Heart rate has finally normalized. - Review of Systems General: Reports: Weakness. Denies: Fever - Patient Data Vitals - Most Recent: Last Vital Signs Temp 35.7 C 07/29/18 04:00 Pulse 85 07/29/18 05:50 Resp 16 07/29/18 05:50 BP 108/74 07/29/18 05:50 Pulse Ox 98 07/29/18 05:50 Weight - Most Recent: 75.7 kg I&O - Last 24 Hours: Intake & Output 07/28/18 07/29/18 07/29/18 22:59 06:59 14:59 Intake Total 680 1398 Output Total 250 300 Balance 430 1098 Lab Results Last 24 Hours: Laboratory Results - last 24 hr 07/29/18 07/29/18 07/29/18 Range/Units 06:02 06:02 06:02 WBC 3.8 L (4.5-11.0) K/uL RBC 2.86 L (4.30-5.90) M/uL Hgb 9.2 L (12.0-15.0) g/dL Hct 26.8 L (40.0-54.0) % MCV 94 (80-98) fL MCH 32 H (27-31) pg MCHC 34 (32-36) % Plt Count 60 L (150-400) K/uL PT 12.7 H (9.5-12.0) sec INR 1.16 (0.80-1.20) Sodium 138 L (140-148) mmol/L Potassium 3.8 (3.6-5.2) mmol/L Chloride 104 (100-108) mmol/L Carbon Dioxide 26 (21-32) mmol/L Anion Gap 11.8 (5.0-14.0) mmol/L BUN 6 L (7-18) mg/dL Creatinine 0.6 L (0.8-1.3) mg/dL Est Cr Clr Drug Dosing 183.99 mL/min Estimated GFR (MDRD) > 60 (>60) Glucose 89 (74-106) mg/dL Calcium 8.6 (8.5-10.1) mg/dL Total Bilirubin 10.8 H (0.2-1.0) mg/dL AST 68 H (15-37) U/L ALT 62 (12-78) U/L Alkaline Phosphatase 208 H (46-116) U/L Total Protein 5.1 L (6.4-8.2) g/dL Albumin 1.8 L (3.4-5.0) g/dL Globulin 3.3 (2.3-3.5) g/dL Albumin/Globulin Ratio 0.6 L (1.2-2.2) Med Orders - Current: Current Medications Duloxetine HCl (Cymbalta) 30 mg PO DAILY [facility] Last Admin: 07/28/18 08:14 Dose: 30 mg Folic Acid (Folic Acid) 1 mg PO DAILY [facility] Last Admin: 07/28/18 08:14 Dose: 1 mg Gabapentin (Neurontin) 400 mg PO TID [facility] Last Admin: 07/28/18 20:26 Dose: 400 mg Haloperidol Lactate (Haldol) 2 mg IVPUSH Q4H PRN PRN Reason: Agitation Last Admin: 07/28/18 01:45 Dose: 2 mg Potassium Chloride/Dextrose/Sod Cl (D5 1/2 Ns W/ 20 Meq/L Kcl) 1,000 mls @ 50 mls/hr IV ASDIRECTED [facility] Last Admin: 07/28/18 22:47 Dose: 50 mls/hr Ibuprofen (Motrin) 600 mg PO Q6H PRN PRN Reason: Pain/Fever Last Admin: 07/28/18 07:35 Dose: 600 mg Lorazepam (Ativan) 0 mg PO ASDIRECTED [facility]; Protocol Lorazepam (Ativan) 0 mg IV ASDIRECTED [facility]; Protocol Last Admin: 07/28/18 08:13 Dose: 2 mg Lorazepam (Ativan) 2 mg IVPUSH ASDIRECTED PRN PRN Reason: Seizures Last Admin: 07/28/18 09:00 Dose: 2 mg Magnesium Hydroxide (Milk Of Magnesia) 30 ml PO Q12H PRN PRN Reason: Constipation Melatonin (Melatonin) 9 mg PO BEDTIME [facility] Last Admin: 07/28/18 20:26 Dose: 9 mg Nicotine (Habitrol) 14 mg TRDERM DAILY [facility] Last Admin: 07/28/18 08:14 Dose: 14 mg Ondansetron HCl (Zofran Odt) 4 mg PO Q6H PRN PRN Reason: Nausea able to take PO Ondansetron HCl (Zofran) 4 mg IV Q6H PRN PRN Reason: Nausea/Vomiting Pantoprazole Sodium (Protonix) 40 mg PO ACBREAKFAST [facility] Last Admin: 07/28/18 07:35 Dose: 40 mg Senna/Docusate Sodium (Senna Plus) 1 tab PO BID PRN PRN Reason: Constipation Thiamine HCl (Vitamin B-1) 100 mg PO DAILY [facility] Last Admin: 07/28/18 08:14 Dose: 100 mg Discontinued Medications Multivitamins/Minerals 10 ml/Thiamine HCl 100 mg/ Folic Acid 1 mg/ Magnesium Sulfate 3 gm/ Sodium Chloride 1,017.2 mls @ 1,000 mls/hr IV ASDIRECTED [facility] Multivitamins/Minerals 10 ml/Thiamine HCl 100 mg/ Folic Acid 1 mg/ Magnesium Sulfate 3 gm/ Sodium Chloride 1,017.2 mls @ 500 mls/hr IV ASDIRECTED ONE Stop: 07/24/18 19:02 Last Admin: 07/24/18 17:03 Dose: 500 mls/hr Dextrose/Sodium Chloride (Dextrose 5%-Normal Saline) 1,000 mls @ 125 mls/hr IV ASDIRECTED [facility] Last Admin: 07/26/18 10:23 Dose: 125 mls/hr Potassium Chloride 20 meq/Lidocaine HCl 2 ml/ Sodium Chloride 112 mls @ 50 mls/ hr IV Q2H [facility] Stop: 07/24/18 22:03 Last Admin: 07/24/18 22:00 Dose: 50 mls/hr Potassium Chloride (Kcl 20 Meq In Water 100 Ml) Confirm Administered Dose 200 mls @ as directed .ROUTE .STK-MED ONE Stop: 07/24/18 19:43 Last Admin: 07/24/18 19:49 Dose: Not Given Potassium Chloride 20 meq/ (Premix) 0 mls @ 50 mls/hr IV ONETIME ONE Stop: 07/25/18 06:00 Last Admin: 07/25/18 10:06 Dose: Not Given Potassium Chloride (Kcl 20 Meq In Water 100 Ml) 100 mls @ 50 mls/hr IV Q2H [facility] Stop: 07/25/18 10:59 Last Admin: 07/25/18 09:02 Dose: 50 mls/hr Potassium Chloride 20 meq/Lidocaine HCl 2 ml/ Sodium Chloride 112 mls @ 50 mls/ hr IV Q2H [facility] Stop: 07/25/18 18:29 Last Admin: 07/25/18 17:11 Dose: 50 mls/hr Potassium Chloride 20 meq/Lidocaine HCl 2 ml/ Sodium Chloride 112 mls @ 56 mls/ hr IV Q2H [facility] Stop: 07/26/18 13:29 Last Admin: 07/26/18 12:31 Dose: 56 mls/hr Potassium Chloride/Dextrose/Sod Cl (D5 1/2 Ns W/ 20 Meq/L Kcl) 1,000 mls @ 75 mls/hr IV ASDIRECTED [facility] Last Admin: 07/27/18 03:56 Dose: 75 mls/hr Potassium Chloride 20 meq/Lidocaine HCl 2 ml/ Sodium Chloride 112 mls @ 50 mls/ hr IV Q2H [facility] Stop: 07/28/18 13:59 Last Admin: 07/28/18 12:23 Dose: 50 mls/hr Sodium Chloride (Normal Saline) 500 mls @ 500 mls/hr IV .BOLUS ONE Stop: 07/28/18 19:36 Last Admin: 07/28/18 18:40 Dose: 500 mls/hr Lidocaine HCl (Xylocaine-Mpf 1%) 2 ml INJECT ONETIME ONE Stop: 07/25/18 06:02 Last Admin: 07/25/18 06:32 Dose: 2 ml Pantoprazole Sodium (Protonix Iv) 40 mg IV DAILY [facility] Last Admin: 07/24/18 19:52 Dose: 40 mg Pantoprazole Sodium (Protonix Iv) 40 mg IV Q24H [facility] Last Admin: 07/26/18 16:11 Dose: 40 mg - Exam Quality Assessment: No: Supplemental Oxygen General: No Acute Distress, Lethargic. No: Alert Lungs: Clear to Auscultation, Normal Respiratory Effort Cardiovascular: Regular Rate, Regular Rhythm GI/Abdominal Exam: Soft, No Distention Extremities: No Pedal Edema Skin: Warm, Dry Psy/Mental Status: No: Agitated - Problem List & Annotations (1) Alcoholic hepatitis without ascites SNOMED Code(s): 341438644 Code(s): K70.10 - ALCOHOLIC HEPATITIS WITHOUT ASCITES Status: Acute Current Visit: No (2) Alcohol abuse SNOMED Code(s): 10108828 Code(s): F10.10 - ALCOHOL ABUSE, UNCOMPLICATED Status: Acute Current Visit: Yes (3) Hypokalemia SNOMED Code(s): 56982639 Code(s): E87.6 - HYPOKALEMIA Status: Resolved Current Visit: No (4) Tobacco dependence SNOMED Code(s): 21707167 Code(s): F17.200 - NICOTINE DEPENDENCE, UNSPECIFIED, UNCOMPLICATED Status: Chronic Current Visit: Yes - Problem List Review Problem List Initiated/Reviewed/Updated: Yes - My Orders Last 24 Hours: My Active Orders 07/29/18 12:15 Preston Catheter Insertion [Insert Urinary Catheter] [OM.PC] Q24H 07/30/18 05:00 CBC W/O DIFF,HEMOGRAM [HEME] Timed (1) COMPREHENSIVE METABOLIC PN,CMP [CHEM] Timed - Plan Plan:: ASSESSMENT AND PLAN - Alcoholic hepatitis - bilirubin slightly better again today and AST and ALT are both improving. No abdominal pain. -Continue gentle IV fluids -Repeat liver labs in the morning -Symptomatic management for pain or nausea Alcohol abuse - long-standing history of alcohol use. He remains very lethargic but overall alcohol withdrawal seems to be improving. -CIWAA protocol with lorazepam as indicated -Gabapentin 200 mg 3 times daily for 5 days (start on 07/29) -Haldol for breakthrough agitation -Melatonin at bedtime -Petition court for commitment and alcohol treatment once alcohol withdrawal has completed Hypokalemia - potassium level has improved with supplementation. -40 mEq today -Recheck again in the morning Tobacco dependence - no interest in quitting at this time. -Nicotine patch Maintenance issues - - DVT prophylaxis - mechanical with severe thrombocytopenia - GI prophylaxis - PPI - Nutrition - regular diet - Preston catheter - placed for strict intake and output monitoring in this critically ill patient, I anticipate removal tomorrow. Urine output has remained on the low side of normal Disposition - I would anticipate discharge to inpatient alcohol treatment after the hospital stay Kiran Sharma M.D.
[2018-07-29] MEDS: Thiamine 100 MG Tab PO SCH (09:52)
[2018-07-29] MEDS: Pantoprazole 40 MG Tab.CR PO SCH (09:53)
[2018-07-29] MEDS: DULoxetine 30 MG Cap PO SCH (09:53)
[2018-07-29] MEDS: Gabapentin 100 MG Cap PO SCH ×4 (09:53→20:33)
[2018-07-29] MEDS: Nicotine 14 MG/24 Hr Patch TRDERM SCH (09:54)
[2018-07-29] MEDS: Folic Acid 1 MG Tab PO SCH (09:54)
[2018-07-29] MEDS: Gabapentin 400 MG Cap PO SCH (10:03)
[2018-07-29] MEDS: D5 1/2 NS w/ 20 mEq/L KCl 1,000 ML IV SCH (18:36)
[2018-07-29] MEDS: Melatonin 3 MG Tab PO SCH (20:33)
[2018-07-30] MEDS ORDERED: Haloperidol Lactate 5 MG/ML SDV IM STA (06:01)
[2018-07-30] MEDS: Nicotine 14 MG/24 Hr Patch TRDERM SCH (08:19)
[2018-07-30] MEDS: Pantoprazole 40 MG Tab.CR PO SCH (08:19)
[2018-07-30] MEDS: Thiamine 100 MG Tab PO SCH (08:20)
[2018-07-30] MEDS: DULoxetine 30 MG Cap PO SCH (08:20)
[2018-07-30] MEDS: Folic Acid 1 MG Tab PO SCH (08:20)
[2018-07-30] MEDS: Gabapentin 100 MG Cap PO SCH ×3 (08:21→20:50)
--- NOTE | 2018-07-30 10:05 | PCM.PN ---
- General Info Date of Service: 07/30/18 Subjective Update: Mr. Knowles is a 37-year-old gentleman with a long-standing history of alcohol abuse. He became very weak and fell at home, admitted to the hospital with acute alcohol withdrawal and acute alcoholic hepatitis. He likely also has a component of underlying cirrhosis. He was admitted to this facility within the past few months under similar circumstances and after discharge refuses treatment for his chemical dependency. He is slowly coming out of his alcohol withdrawal and is placed on a 72 hour hold today to proceed with commitment. He was informed of the 72 hour hold and commitment process when seen today. - Review of Systems General: Reports: Weakness. Denies: Fever, Chills Pulmonary: Reports: No Symptoms Cardiovascular: Reports: No Symptoms Gastrointestinal: Reports: No Symptoms - Patient Data Vitals - Most Recent: Last Vital Signs Temp 97.6 F 07/30/18 08:00 Pulse 101 H 07/30/18 08:00 Resp 20 07/30/18 08:00 BP 113/72 07/30/18 08:00 Pulse Ox 98 07/30/18 08:00 Weight - Most Recent: 166 lb 14.239 oz I&O - Last 24 Hours: Intake & Output 07/29/18 07/30/18 07/30/18 22:59 06:59 14:59 Intake Total 659 1250 Output Total 300 Balance 359 1250 Lab Results Last 24 Hours: Laboratory Results - last 24 hr 07/30/18 07/30/18 Range/Units 05:49 05:49 WBC 4.4 L (4.5-11.0) K/uL RBC 3.13 L (4.30-5.90) M/uL Hgb 10.0 L (12.0-15.0) g/dL Hct 29.7 L (40.0-54.0) % MCV 95 (80-98) fL MCH 32 H (27-31) pg MCHC 34 (32-36) % Plt Count 95 L (150-400) K/uL Sodium 138 L (140-148) mmol/L Potassium 3.6 (3.6-5.2) mmol/L Chloride 102 (100-108) mmol/L Carbon Dioxide 28 (21-32) mmol/L Anion Gap 11.6 (5.0-14.0) mmol/L BUN 5 L (7-18) mg/dL Creatinine 0.7 L (0.8-1.3) mg/dL Est Cr Clr Drug Dosing 157.71 mL/min Estimated GFR (MDRD) > 60 (>60) Glucose 87 (74-106) mg/dL Calcium 8.9 (8.5-10.1) mg/dL Total Bilirubin 11.5 H (0.2-1.0) mg/dL AST 77 H (15-37) U/L ALT 69 (12-78) U/L Alkaline Phosphatase 225 H (46-116) U/L Total Protein 5.3 L (6.4-8.2) g/dL Albumin 2.0 L (3.4-5.0) g/dL Globulin 3.3 (2.3-3.5) g/dL Albumin/Globulin Ratio 0.6 L (1.2-2.2) Med Orders - Current: Current Medications Duloxetine HCl (Cymbalta) 30 mg PO DAILY [facility] Last Admin: 07/30/18 08:20 Dose: 30 mg Folic Acid (Folic Acid) 1 mg PO DAILY [facility] Last Admin: 07/30/18 08:20 Dose: 1 mg Gabapentin (Neurontin) 200 mg PO TID [facility] Last Admin: 07/30/18 08:21 Dose: 200 mg Haloperidol Lactate (Haldol) 2 mg IVPUSH Q4H PRN PRN Reason: Agitation Last Admin: 07/28/18 01:45 Dose: 2 mg Ibuprofen (Motrin) 600 mg PO Q6H PRN PRN Reason: Pain/Fever Last Admin: 07/28/18 07:35 Dose: 600 mg Lorazepam (Ativan) 0 mg PO ASDIRECTED [facility]; Protocol Last Admin: 07/29/18 15:46 Dose: 1 mg Lorazepam (Ativan) 0 mg IV ASDIRECTED [facility]; Protocol Last Admin: 07/28/18 08:13 Dose: 2 mg Lorazepam (Ativan) 2 mg IVPUSH ASDIRECTED PRN PRN Reason: Seizures Last Admin: 07/28/18 09:00 Dose: 2 mg Magnesium Hydroxide (Milk Of Magnesia) 30 ml PO Q12H PRN PRN Reason: Constipation Melatonin (Melatonin) 9 mg PO BEDTIME [facility] Last Admin: 07/29/18 20:33 Dose: 9 mg Nicotine (Habitrol) 14 mg TRDERM DAILY [facility] Last Admin: 07/30/18 08:19 Dose: 14 mg Ondansetron HCl (Zofran Odt) 4 mg PO Q6H PRN PRN Reason: Nausea able to take PO Ondansetron HCl (Zofran) 4 mg IV Q6H PRN PRN Reason: Nausea/Vomiting Pantoprazole Sodium (Protonix) 40 mg PO ACBREAKFAST [facility] Last Admin: 07/30/18 08:19 Dose: 40 mg Senna/Docusate Sodium (Senna Plus) 1 tab PO BID PRN PRN Reason: Constipation Thiamine HCl (Vitamin B-1) 100 mg PO DAILY [facility] Last Admin: 07/30/18 08:20 Dose: 100 mg Discontinued Medications Gabapentin (Neurontin) 400 mg PO TID [facility] Last Admin: 07/29/18 10:03 Dose: Not Given Haloperidol Lactate (Haldol) 5 mg IM ONETIME [facility] Stop: 07/30/18 06:02 Last Admin: 07/30/18 06:16 Dose: 5 mg Multivitamins/Minerals 10 ml/Thiamine HCl 100 mg/ Folic Acid 1 mg/ Magnesium Sulfate 3 gm/ Sodium Chloride 1,017.2 mls @ 1,000 mls/hr IV ASDIRECTED [facility] Multivitamins/Minerals 10 ml/Thiamine HCl 100 mg/ Folic Acid 1 mg/ Magnesium Sulfate 3 gm/ Sodium Chloride 1,017.2 mls @ 500 mls/hr IV ASDIRECTED ONE Stop: 07/24/18 19:02 Last Admin: 07/24/18 17:03 Dose: 500 mls/hr Dextrose/Sodium Chloride (Dextrose 5%-Normal Saline) 1,000 mls @ 125 mls/hr IV ASDIRECTED [facility] Last Admin: 07/26/18 10:23 Dose: 125 mls/hr Potassium Chloride 20 meq/Lidocaine HCl 2 ml/ Sodium Chloride 112 mls @ 50 mls/ hr IV Q2H [facility] Stop: 07/24/18 22:03 Last Admin: 07/24/18 22:00 Dose: 50 mls/hr Potassium Chloride (Kcl 20 Meq In Water 100 Ml) Confirm Administered Dose 200 mls @ as directed .ROUTE .STK-MED ONE Stop: 07/24/18 19:43 Last Admin: 07/24/18 19:49 Dose: Not Given Potassium Chloride 20 meq/ (Premix) 0 mls @ 50 mls/hr IV ONETIME [facility] Stop: 07/25/18 06:00 Last Admin: 07/25/18 10:06 Dose: Not Given Potassium Chloride (Kcl 20 Meq In Water 100 Ml) 100 mls @ 50 mls/hr IV Q2H [facility] Stop: 07/25/18 10:59 Last Admin: 07/25/18 09:02 Dose: 50 mls/hr Potassium Chloride 20 meq/Lidocaine HCl 2 ml/ Sodium Chloride 112 mls @ 50 mls/ hr IV Q2H [facility] Stop: 07/25/18 18:29 Last Admin: 07/25/18 17:11 Dose: 50 mls/hr Potassium Chloride 20 meq/Lidocaine HCl 2 ml/ Sodium Chloride 112 mls @ 56 mls/ hr IV Q2H [facility] Stop: 07/26/18 13:29 Last Admin: 07/26/18 12:31 Dose: 56 mls/hr Potassium Chloride/Dextrose/Sod Cl (D5 1/2 Ns W/ 20 Meq/L Kcl) 1,000 mls @ 75 mls/hr IV ASDIRECTED [facility] Last Admin: 07/27/18 03:56 Dose: 75 mls/hr Potassium Chloride/Dextrose/Sod Cl (D5 1/2 Ns W/ 20 Meq/L Kcl) 1,000 mls @ 50 mls/hr IV ASDIRECTED [facility] Last Admin: 07/29/18 18:36 Dose: 50 mls/hr Potassium Chloride 20 meq/Lidocaine HCl 2 ml/ Sodium Chloride 112 mls @ 50 mls/ hr IV Q2H [facility] Stop: 07/28/18 13:59 Last Admin: 07/28/18 12:23 Dose: 50 mls/hr Sodium Chloride (Normal Saline) 500 mls @ 500 mls/hr IV .BOLUS ONE Stop: 07/28/18 19:36 Last Admin: 07/28/18 18:40 Dose: 500 mls/hr Lidocaine HCl (Xylocaine-Mpf 1%) 2 ml INJECT ONETIME ONE Stop: 07/25/18 06:02 Last Admin: 07/25/18 06:32 Dose: 2 ml Pantoprazole Sodium (Protonix Iv) 40 mg IV DAILY [facility] Last Admin: 07/24/18 19:52 Dose: 40 mg Pantoprazole Sodium (Protonix Iv) 40 mg IV Q24H [facility] Last Admin: 07/26/18 16:11 Dose: 40 mg - Exam Quality Assessment: Urine Catheter, DVT Prophylaxis General: Alert, Oriented, Cooperative, Mild Distress HEENT: Scleral Icterus Lungs: Clear to Auscultation, Normal Respiratory Effort Cardiovascular: Regular Rate, Regular Rhythm, No Murmurs GI/Abdominal Exam: Soft, Non-Tender, No Organomegaly, No Distention Skin: Other (Jaundice) - Problem List Review Problem List Initiated/Reviewed/Updated: Yes - My Orders Last 24 Hours: My Active Orders 07/30/18 09:51 Convert IV to Saline Lock [OM.PC] Routine 07/31/18 05:00 CBC WITH AUTO DIFF [HEME] Timed COMPREHENSIVE METABOLIC PN,CMP [CHEM] Timed INR,PT,PROTHROMBIN TIME [COAG] Timed - Plan Plan:: ASSESSMENT AND PLAN - Alcoholic hepatitis -bilirubin remains elevated at 11.5 -A lock IV -Repeat liver labs in the morning -Symptomatic management for pain or nausea Alcohol abuse - long-standing history of alcohol use. He remains very lethargic but overall alcohol withdrawal seems to be improving. He was placed on a 70 2R hold today and will forward with commitment process. -[facility] protocol with lorazepam as indicated -Gabapentin 200 mg 3 times daily for 5 days (start on 07/29) -Haldol for breakthrough agitation -Melatonin at bedtime -72 hour hold, proceed with commitment process Hypokalemia - potassium level within normal range today -Recheck again in the morning Tobacco dependence - no interest in quitting at this time. -Nicotine patch Maintenance issues - - DVT prophylaxis - mechanical with severe thrombocytopenia - GI prophylaxis - PPI - Nutrition - regular diet - Preston catheter - placed for strict intake and output monitoring in this critically ill patient, I anticipate removal tomorrow. Urine output has remained on the low side of normal Disposition - I would anticipate discharge to inpatient alcohol treatment after the hospital stay
[2018-07-30] MEDS: Melatonin 3 MG Tab PO SCH (20:50)
[2018-07-31] MEDS: Loperamide 2 MG Cap PO PRN ×3 (05:43→10:17)
[2018-07-31] MEDS ORDERED: Potassium Chloride 20 MEQ in Premix Bag 1 BAG IV SCH (06:00)
[2018-07-31] MEDS ORDERED: Potassium Chloride 20 MEQ Tab.ER PO ONE ×2 (06:00→12:00)
[2018-07-31] MEDS: Nicotine 14 MG/24 Hr Patch TRDERM SCH (08:07)
[2018-07-31] MEDS: Thiamine 100 MG Tab PO SCH (08:08)
[2018-07-31] MEDS: Gabapentin 100 MG Cap PO SCH ×3 (08:08→21:56)
[2018-07-31] MEDS: Pantoprazole 40 MG Tab.CR PO SCH (08:08)
[2018-07-31] MEDS: Folic Acid 1 MG Tab PO SCH (08:09)
[2018-07-31] MEDS: DULoxetine 30 MG Cap PO SCH (08:10)
[2018-07-31] MEDS ORDERED: Potassium Chloride 20 MEQ, Lidocaine 1% 2 ML in Sodium Chloride 0.9% 100 ML IV ONE (08:30)
--- NOTE | 2018-07-31 11:07 | PCM.PN ---
- General Info Date of Service: 07/31/18 Subjective Update: Mr. Knowles remains very weak and lethargic, he has had 2 episodes of transient syncope in the last 24 hours. Oral intake has been fair, but he continues to have large volume of watery diarrhea. Functional Status: Reports: Tolerating Diet, Urinating - Review of Systems General: Reports: Weakness. Denies: Fever, Chills Pulmonary: Reports: No Symptoms Cardiovascular: Reports: No Symptoms Gastrointestinal: Reports: No Symptoms - Patient Data Vitals - Most Recent: Last Vital Signs Temp 97.8 F 07/31/18 10:00 Pulse 88 07/31/18 10:00 Resp 23 H 07/31/18 10:00 BP 107/73 07/31/18 10:00 Pulse Ox 100 07/31/18 10:00 Weight - Most Recent: 165 lb 12.602 oz I&O - Last 24 Hours: Intake & Output 07/30/18 07/31/18 07/31/18 22:59 06:59 14:59 Intake Total 600 Output Total 900 800 Balance -300 -800 Lab Results Last 24 Hours: Laboratory Results - last 24 hr 07/31/18 07/31/18 07/31/18 Range/Units 04:45 04:45 04:45 WBC 5.1 (4.5-11.0) K/uL RBC 3.04 L (4.30-5.90) M/uL Hgb 9.8 L (12.0-15.0) g/dL Hct 28.7 L (40.0-54.0) % MCV 94 (80-98) fL MCH 32 H (27-31) pg MCHC 34 (32-36) % Plt Count 124 L (150-400) K/uL Add Manual Diff Yes Neutrophils % (Manual) 48 (36-66) % Band Neutrophils % 5 (5-11) % Lymphocytes % (Manual) 25 (24-44) % Monocytes % (Manual) 22 H (2-6) % Anisocytosis Marked H Target Cells Many H PT 12.7 H (9.5-12.0) sec INR 1.16 (0.80-1.20) Sodium 138 L (140-148) mmol/L Potassium 2.9 L* (3.6-5.2) mmol/L Chloride 101 (100-108) mmol/L Carbon Dioxide 26 (21-32) mmol/L Anion Gap 13.9 (5.0-14.0) mmol/L BUN 3 L (7-18) mg/dL Creatinine 0.7 L (0.8-1.3) mg/dL Est Cr Clr Drug Dosing 157.71 mL/min Estimated GFR (MDRD) > 60 (>60) Glucose 99 (74-106) mg/dL Calcium 8.7 (8.5-10.1) mg/dL Total Bilirubin 12.2 H (0.2-1.0) mg/dL AST 77 H (15-37) U/L ALT 76 (12-78) U/L Alkaline Phosphatase 244 H (46-116) U/L Total Protein 5.3 L (6.4-8.2) g/dL Albumin 1.9 L (3.4-5.0) g/dL Globulin 3.4 (2.3-3.5) g/dL Albumin/Globulin Ratio 0.6 L (1.2-2.2) Med Orders - Current: Current Medications Diphenoxylate HCl/Atropine (Lomotil 0.025-2.5 Mg) 1 tab PO Q4H PRN PRN Reason: Diarrhea Duloxetine HCl (Cymbalta) 30 mg PO DAILY [facility] Last Admin: 07/31/18 08:10 Dose: 30 mg Folic Acid (Folic Acid) 1 mg PO DAILY [facility] Last Admin: 07/31/18 08:09 Dose: 1 mg Gabapentin (Neurontin) 200 mg PO TID [facility] Last Admin: 07/31/18 08:08 Dose: 200 mg Haloperidol Lactate (Haldol) 2 mg IVPUSH Q4H PRN PRN Reason: Agitation Last Admin: 07/28/18 01:45 Dose: 2 mg Sodium Chloride (Normal Saline) 1,000 mls @ 125 mls/hr IV ASDIRECTED [facility] Ibuprofen (Motrin) 600 mg PO Q6H PRN PRN Reason: Pain/Fever Last Admin: 07/28/18 07:35 Dose: 600 mg Lorazepam (Ativan) 0 mg PO ASDIRECTED [facility]; Protocol Last Admin: 07/29/18 15:46 Dose: 1 mg Lorazepam (Ativan) 0 mg IV ASDIRECTED [facility]; Protocol Last Admin: 07/28/18 08:13 Dose: 2 mg Lorazepam (Ativan) 2 mg IVPUSH ASDIRECTED PRN PRN Reason: Seizures Last Admin: 07/28/18 09:00 Dose: 2 mg Magnesium Hydroxide (Milk Of Magnesia) 30 ml PO Q12H PRN PRN Reason: Constipation Melatonin (Melatonin) 9 mg PO BEDTIME [facility] Last Admin: 07/30/18 20:50 Dose: 9 mg Nicotine (Habitrol) 14 mg TRDERM DAILY [facility] Last Admin: 07/31/18 08:07 Dose: 14 mg Ondansetron HCl (Zofran Odt) 4 mg PO Q6H PRN PRN Reason: Nausea able to take PO Ondansetron HCl (Zofran) 4 mg IV Q6H PRN PRN Reason: Nausea/Vomiting Pantoprazole Sodium (Protonix) 40 mg PO ACBREAKFAST [facility] Last Admin: 07/31/18 08:08 Dose: 40 mg Potassium Chloride (Klor-Con M20) 40 meq PO ONETIME ONE Stop: 07/31/18 12:01 Senna/Docusate Sodium (Senna Plus) 1 tab PO BID PRN PRN Reason: Constipation Thiamine HCl (Vitamin B-1) 100 mg PO DAILY [facility] Last Admin: 07/31/18 08:08 Dose: 100 mg Discontinued Medications Gabapentin (Neurontin) 400 mg PO TID [facility] Last Admin: 07/29/18 10:03 Dose: Not Given Haloperidol Lactate (Haldol) 5 mg IM ONETIME STA Stop: 07/30/18 06:02 Last Admin: 07/30/18 06:16 Dose: 5 mg Multivitamins/Minerals 10 ml/Thiamine HCl 100 mg/ Folic Acid 1 mg/ Magnesium Sulfate 3 gm/ Sodium Chloride 1,017.2 mls @ 1,000 mls/hr IV ASDIRECTED [facility] Multivitamins/Minerals 10 ml/Thiamine HCl 100 mg/ Folic Acid 1 mg/ Magnesium Sulfate 3 gm/ Sodium Chloride 1,017.2 mls @ 500 mls/hr IV ASDIRECTED ONE Stop: 07/24/18 19:02 Last Admin: 07/24/18 17:03 Dose: 500 mls/hr Dextrose/Sodium Chloride (Dextrose 5%-Normal Saline) 1,000 mls @ 125 mls/hr IV ASDIRECTED [facility] Last Admin: 07/26/18 10:23 Dose: 125 mls/hr Potassium Chloride 20 meq/Lidocaine HCl 2 ml/ Sodium Chloride 112 mls @ 50 mls/ hr IV Q2H [facility] Stop: 07/24/18 22:03 Last Admin: 07/24/18 22:00 Dose: 50 mls/hr Potassium Chloride (Kcl 20 Meq In Water 100 Ml) Confirm Administered Dose 200 mls @ as directed .ROUTE .STK-MED ONE Stop: 07/24/18 19:43 Last Admin: 07/24/18 19:49 Dose: Not Given Potassium Chloride 20 meq/ (Premix) 0 mls @ 50 mls/hr IV ONETIME ONE Stop: 07/25/18 06:00 Last Admin: 07/25/18 10:06 Dose: Not Given Potassium Chloride (Kcl 20 Meq In Water 100 Ml) 100 mls @ 50 mls/hr IV Q2H [facility] Stop: 07/25/18 10:59 Last Admin: 07/25/18 09:02 Dose: 50 mls/hr Potassium Chloride 20 meq/Lidocaine HCl 2 ml/ Sodium Chloride 112 mls @ 50 mls/ hr IV Q2H [facility] Stop: 07/25/18 18:29 Last Admin: 07/25/18 17:11 Dose: 50 mls/hr Potassium Chloride 20 meq/Lidocaine HCl 2 ml/ Sodium Chloride 112 mls @ 56 mls/ hr IV Q2H [facility] Stop: 07/26/18 13:29 Last Admin: 07/26/18 12:31 Dose: 56 mls/hr Potassium Chloride/Dextrose/Sod Cl (D5 1/2 Ns W/ 20 Meq/L Kcl) 1,000 mls @ 75 mls/hr IV ASDIRECTED [facility] Last Admin: 07/27/18 03:56 Dose: 75 mls/hr Potassium Chloride/Dextrose/Sod Cl (D5 1/2 Ns W/ 20 Meq/L Kcl) 1,000 mls @ 50 mls/hr IV ASDIRECTED [facility] Last Admin: 07/29/18 18:36 Dose: 50 mls/hr Potassium Chloride 20 meq/Lidocaine HCl 2 ml/ Sodium Chloride 112 mls @ 50 mls/ hr IV Q2H [facility] Stop: 07/28/18 13:59 Last Admin: 07/28/18 12:23 Dose: 50 mls/hr Sodium Chloride (Normal Saline) 500 mls @ 500 mls/hr IV .BOLUS ONE Stop: 07/28/18 19:36 Last Admin: 07/28/18 18:40 Dose: 500 mls/hr Potassium Chloride 20 meq/ (Premix) 100 mls @ 50 mls/hr IV Q2H [facility] Stop: 07/31/18 08:00 Last Admin: 07/31/18 06:35 Dose: 50 mls/hr Potassium Chloride 20 meq/Lidocaine HCl 2 ml/ Sodium Chloride 112 mls @ 56 mls/ hr IV ONETIME ONE Stop: 07/31/18 10:29 Last Admin: 07/31/18 08:27 Dose: 56 mls/hr Lidocaine HCl (Xylocaine-Mpf 1%) 2 ml INJECT ONETIME ONE Stop: 07/25/18 06:02 Last Admin: 07/25/18 06:32 Dose: 2 ml Lidocaine HCl (Xylocaine-Mpf 1%) 2 ml INJECT ONETIME ONE Stop: 07/31/18 05:56 Last Admin: 07/31/18 06:41 Dose: 2 ml Loperamide HCl (Imodium) 2 mg PO Q4H PRN PRN Reason: Diarrhea Last Admin: 07/31/18 10:17 Dose: 2 mg Pantoprazole Sodium (Protonix Iv) 40 mg IV DAILY [facility] Last Admin: 07/24/18 19:52 Dose: 40 mg Pantoprazole Sodium (Protonix Iv) 40 mg IV Q24H [facility] Last Admin: 07/26/18 16:11 Dose: 40 mg Potassium Chloride (Klor-Con M20) 40 meq PO ONETIME ONE Stop: 07/31/18 06:01 Last Admin: 07/31/18 06:31 Dose: 40 meq - Exam Quality Assessment: DVT Prophylaxis General: Cooperative, Mild Distress Lungs: Clear to Auscultation, Normal Respiratory Effort Cardiovascular: Regular Rate, Regular Rhythm, No Murmurs GI/Abdominal Exam: Soft, Non-Tender, No Organomegaly, No Distention Extremities: Non-Tender, No Pedal Edema - Problem List Review Problem List Initiated/Reviewed/Updated: Yes - My Orders Last 24 Hours: My Active Orders 07/31/18 11:01 Orthostatic Vital Signs [RC] Q6HR 07/31/18 11:02 Atropine/Diphenoxylate [Lomotil 0.025-2.5 MG] 1 tab PO Q4H PRN 07/31/18 11:15 Sodium Chloride 0.9% @ 125 MLS/HR (1000ml) Sodium Chloride 0.9% [Normal Saline] 1,000 ml IV ASDIRECTED 07/31/18 12:00 Potassium Chloride [Klor-Con M20] 40 meq PO ONETIME ONE 07/31/18 17:00 POTASSIUM,K [CHEM] Stat 08/01/18 05:00 COMPREHENSIVE METABOLIC PN,CMP [CHEM] Timed - Plan Plan:: ASSESSMENT AND PLAN - Alcoholic hepatitis -bilirubin remains elevated at 12 -Dermal saline 125 mL per hour -Repeat liver labs in the morning -Symptomatic management for pain or nausea Alcohol abuse - long-standing history of alcohol use. He remains very lethargic but overall alcohol withdrawal seems to be improving. He was placed on a 70 2R hold today and will forward with commitment process. -CIWAA protocol with lorazepam as indicated -Gabapentin 200 mg 3 times daily for 5 days (start on 07/29) -Haldol for breakthrough agitation -Melatonin at bedtime -72 hour hold, proceed with commitment process Hypokalemia - potassium level low today -IV and oral potassium replacement -Recheck potassium this afternoon -Recheck again in the morning Tobacco dependence - no interest in quitting at this time. -Nicotine patch Maintenance issues - - DVT prophylaxis - mechanical with severe thrombocytopenia - GI prophylaxis - PPI - Nutrition - regular diet - Preston catheter - placed for strict intake and output monitoring in this critically ill patient, I anticipate removal tomorrow. Urine output has remained on the low side of normal Disposition - I would anticipate discharge to inpatient alcohol treatment after the hospital stay
[2018-07-31] MEDS: Sodium Chloride 0.9% 1,000 ML IV SCH ×2 (11:57→19:17)
[2018-07-31] MEDS: Atropine/Diphenoxylate 0.025-2.5 MG Tab PO PRN (14:50)
[2018-07-31] MEDS: Melatonin 3 MG Tab PO SCH (21:55)
[2018-08-01] MEDS: Sodium Chloride 0.9% 1,000 ML IV SCH (03:23)
[2018-08-01] MEDS: Atropine/Diphenoxylate 0.025-2.5 MG Tab PO PRN ×2 (03:24→11:19)
[2018-08-01] MEDS: Ibuprofen 600 MG Tab PO PRN ×2 (05:43→17:03)
[2018-08-01] MEDS: Nicotine 14 MG/24 Hr Patch TRDERM SCH (08:17)
[2018-08-01] MEDS: Folic Acid 1 MG Tab PO SCH (08:19)
[2018-08-01] MEDS: Thiamine 100 MG Tab PO SCH (08:19)
[2018-08-01] MEDS: DULoxetine 30 MG Cap PO SCH (08:19)
[2018-08-01] MEDS: Pantoprazole 40 MG Tab.CR PO SCH (08:19)
[2018-08-01] MEDS: Gabapentin 100 MG Cap PO SCH ×2 (08:20→13:21)
[2018-08-01] MEDS ORDERED: Potassium Chloride 20 MEQ Tab.ER PO ONE ×3 (09:00→17:00)
--- NOTE | 2018-08-01 09:24 | PCM.PN ---
- General Info Date of Service: 08/01/18 Subjective Update: Mr. Knowles has become cognitively more clear over the last 24 hours, more interactive and conversant. He refuses to consider voluntary alcohol treatment, but did consent to sign a release of information for the court system to move along commitment proceedings. Continues to experience diarrhea, oral intake has remained somewhat marginal. - Review of Systems General: Reports: Weakness. Denies: Fever, Chills Pulmonary: Reports: No Symptoms Cardiovascular: Reports: No Symptoms Gastrointestinal: Reports: Decreased Appetite, Diarrhea. Denies: Difficulty Swallowing, Hematochezia, Melena, Nausea, Vomiting - Patient Data Vitals - Most Recent: Last Vital Signs Temp 98.5 F 07/31/18 19:51 Pulse 90 08/01/18 07:22 Resp 19 08/01/18 07:22 BP 125/85 08/01/18 07:22 Pulse Ox 99 08/01/18 07:22 Orthostatic Blood Pressure [ 107/48 Standing] Orthostatic Blood Pressure [ 107/73 Sitting] Orthostatic Blood Pressure [ 121/83 Supine] Weight - Most Recent: 165 lb 12.602 oz I&O - Last 24 Hours: Intake & Output 07/31/18 08/01/18 08/01/18 22:59 06:59 14:59 Intake Total 2399 2157 Output Total 1300 1000 Balance 1099 1157 Lab Results Last 24 Hours: Laboratory Results - last 24 hr 07/31/18 08/01/18 Range/Units 17:00 05:47 Sodium 137 L (140-148) mmol/L Potassium 3.6 3.3 L (3.6-5.2) mmol/L Chloride 102 (100-108) mmol/L Carbon Dioxide 25 (21-32) mmol/L Anion Gap 13.3 (5.0-14.0) mmol/L BUN 2 L (7-18) mg/dL Creatinine 0.6 L (0.8-1.3) mg/dL Est Cr Clr Drug Dosing 182.78 mL/min Estimated GFR (MDRD) > 60 (>60) Glucose 101 (74-106) mg/dL Calcium 8.6 (8.5-10.1) mg/dL Total Bilirubin 14.7 H (0.2-1.0) mg/dL AST 89 H (15-37) U/L ALT 85 H (12-78) U/L Alkaline Phosphatase 276 H (46-116) U/L Total Protein 5.6 L (6.4-8.2) g/dL Albumin 2.1 L (3.4-5.0) g/dL Globulin 3.5 (2.3-3.5) g/dL Albumin/Globulin Ratio 0.6 L (1.2-2.2) Med Orders - Current: Current Medications Diphenoxylate HCl/Atropine (Lomotil 0.025-2.5 Mg) 1 tab PO Q4H PRN PRN Reason: Diarrhea Last Admin: 08/01/18 03:24 Dose: 1 tab Duloxetine HCl (Cymbalta) 30 mg PO DAILY [facility] Last Admin: 08/01/18 08:19 Dose: 30 mg Folic Acid (Folic Acid) 1 mg PO DAILY [facility] Last Admin: 08/01/18 08:19 Dose: 1 mg Gabapentin (Neurontin) 200 mg PO TID [facility] Last Admin: 08/01/18 08:20 Dose: 200 mg Haloperidol Lactate (Haldol) 2 mg IVPUSH Q4H PRN PRN Reason: Agitation Last Admin: 07/28/18 01:45 Dose: 2 mg Sodium Chloride (Normal Saline) 1,000 mls @ 125 mls/hr IV ASDIRECTED [facility] Last Admin: 08/01/18 03:23 Dose: 125 mls/hr Ibuprofen (Motrin) 600 mg PO Q6H PRN PRN Reason: Pain/Fever Last Admin: 08/01/18 05:43 Dose: 600 mg Lorazepam (Ativan) 0 mg PO ASDIRECTED [facility]; Protocol Last Admin: 07/29/18 15:46 Dose: 1 mg Lorazepam (Ativan) 0 mg IV ASDIRECTED [facility]; Protocol Last Admin: 07/28/18 08:13 Dose: 2 mg Lorazepam (Ativan) 2 mg IVPUSH ASDIRECTED PRN PRN Reason: Seizures Last Admin: 07/28/18 09:00 Dose: 2 mg Magnesium Hydroxide (Milk Of Magnesia) 30 ml PO Q12H PRN PRN Reason: Constipation Melatonin (Melatonin) 9 mg PO BEDTIME [facility] Last Admin: 07/31/18 21:55 Dose: 9 mg Nicotine (Habitrol) 14 mg TRDERM DAILY [facility] Last Admin: 06/26/19 08:17 Dose: 14 mg Ondansetron HCl (Zofran Odt) 4 mg PO Q6H PRN PRN Reason: Nausea able to take PO Ondansetron HCl (Zofran) 4 mg IV Q6H PRN PRN Reason: Nausea/Vomiting Pantoprazole Sodium (Protonix) 40 mg PO ACBREAKFAST [facility] Last Admin: 08/01/18 08:19 Dose: 40 mg Potassium Chloride (Klor-Con M20) 40 meq PO ONETIME ONE Stop: 08/01/18 12:01 Senna/Docusate Sodium (Senna Plus) 1 tab PO BID PRN PRN Reason: Constipation Thiamine HCl (Vitamin B-1) 100 mg PO DAILY [facility] Last Admin: 08/01/18 08:19 Dose: 100 mg Discontinued Medications Gabapentin (Neurontin) 400 mg PO TID [facility] Last Admin: 07/29/18 10:03 Dose: Not Given Haloperidol Lactate (Haldol) 5 mg IM ONETIME [facility] Stop: 07/30/18 06:02 Last Admin: 07/30/18 06:16 Dose: 5 mg Multivitamins/Minerals 10 ml/Thiamine HCl 100 mg/ Folic Acid 1 mg/ Magnesium Sulfate 3 gm/ Sodium Chloride 1,017.2 mls @ 1,000 mls/hr IV ASDIRECTED [facility] Multivitamins/Minerals 10 ml/Thiamine HCl 100 mg/ Folic Acid 1 mg/ Magnesium Sulfate 3 gm/ Sodium Chloride 1,017.2 mls @ 500 mls/hr IV ASDIRECTED ONE Stop: 07/24/18 19:02 Last Admin: 07/24/18 17:03 Dose: 500 mls/hr Dextrose/Sodium Chloride (Dextrose 5%-Normal Saline) 1,000 mls @ 125 mls/hr IV ASDIRECTED [facility] Last Admin: 07/26/18 10:23 Dose: 125 mls/hr Potassium Chloride 20 meq/Lidocaine HCl 2 ml/ Sodium Chloride 112 mls @ 50 mls/ hr IV Q2H [facility] Stop: 07/24/18 22:03 Last Admin: 07/24/18 22:00 Dose: 50 mls/hr Potassium Chloride (Kcl 20 Meq In Water 100 Ml) Confirm Administered Dose 200 mls @ as directed .ROUTE .STK-MED ONE Stop: 07/24/18 19:43 Last Admin: 07/24/18 19:49 Dose: Not Given Potassium Chloride 20 meq/ (Premix) 0 mls @ 50 mls/hr IV ONETIME ONE Stop: 07/25/18 06:00 Last Admin: 07/25/18 10:06 Dose: Not Given Potassium Chloride (Kcl 20 Meq In Water 100 Ml) 100 mls @ 50 mls/hr IV Q2H [facility] Stop: 07/25/18 10:59 Last Admin: 07/25/18 09:02 Dose: 50 mls/hr Potassium Chloride 20 meq/Lidocaine HCl 2 ml/ Sodium Chloride 112 mls @ 50 mls/ hr IV Q2H [facility] Stop: 07/25/18 18:29 Last Admin: 07/25/18 17:11 Dose: 50 mls/hr Potassium Chloride 20 meq/Lidocaine HCl 2 ml/ Sodium Chloride 112 mls @ 56 mls/ hr IV Q2H [facility] Stop: 07/26/18 13:29 Last Admin: 07/26/18 12:31 Dose: 56 mls/hr Potassium Chloride/Dextrose/Sod Cl (D5 1/2 Ns W/ 20 Meq/L Kcl) 1,000 mls @ 75 mls/hr IV ASDIRECTED [facility] Last Admin: 07/27/18 03:56 Dose: 75 mls/hr Potassium Chloride/Dextrose/Sod Cl (D5 1/2 Ns W/ 20 Meq/L Kcl) 1,000 mls @ 50 mls/hr IV ASDIRECTED [facility] Last Admin: 07/29/18 18:36 Dose: 50 mls/hr Potassium Chloride 20 meq/Lidocaine HCl 2 ml/ Sodium Chloride 112 mls @ 50 mls/ hr IV Q2H [facility] Stop: 07/28/18 13:59 Last Admin: 07/28/18 12:23 Dose: 50 mls/hr Sodium Chloride (Normal Saline) 500 mls @ 500 mls/hr IV .BOLUS ONE Stop: 07/28/18 19:36 Last Admin: 07/28/18 18:40 Dose: 500 mls/hr Potassium Chloride 20 meq/ (Premix) 100 mls @ 50 mls/hr IV Q2H [facility] Stop: 07/31/18 08:00 Last Admin: 07/31/18 06:35 Dose: 50 mls/hr Potassium Chloride 20 meq/Lidocaine HCl 2 ml/ Sodium Chloride 112 mls @ 56 mls/ hr IV ONETIME ONE Stop: 07/31/18 10:29 Last Admin: 07/31/18 08:27 Dose: 56 mls/hr Lidocaine HCl (Xylocaine-Mpf 1%) 2 ml INJECT ONETIME ONE Stop: 07/25/18 06:02 Last Admin: 07/25/18 06:32 Dose: 2 ml Lidocaine HCl (Xylocaine-Mpf 1%) 2 ml INJECT ONETIME ONE Stop: 07/31/18 05:56 Last Admin: 07/31/18 06:41 Dose: 2 ml Loperamide HCl (Imodium) 2 mg PO Q4H PRN PRN Reason: Diarrhea Last Admin: 07/31/18 10:17 Dose: 2 mg Pantoprazole Sodium (Protonix Iv) 40 mg IV DAILY [facility] Last Admin: 07/24/18 19:52 Dose: 40 mg Pantoprazole Sodium (Protonix Iv) 40 mg IV Q24H [facility] Last Admin: 07/26/18 16:11 Dose: 40 mg Potassium Chloride (Klor-Con M20) 40 meq PO ONETIME ONE Stop: 07/31/18 06:01 Last Admin: 07/31/18 06:31 Dose: 40 meq Potassium Chloride (Klor-Con M20) 40 meq PO ONETIME ONE Stop: 07/31/18 12:01 Last Admin: 07/31/18 11:58 Dose: 40 meq Potassium Chloride (Klor-Con M20) 40 meq PO ONETIME ONE Stop: 08/01/18 09:01 Last Admin: 08/01/18 08:22 Dose: 40 meq - Exam Quality Assessment: DVT Prophylaxis General: Alert, Oriented, Mild Distress Lungs: Clear to Auscultation, Normal Respiratory Effort Cardiovascular: Regular Rate, Regular Rhythm, No Murmurs GI/Abdominal Exam: Soft, Non-Tender, No Organomegaly, No Distention - Problem List Review Problem List Initiated/Reviewed/Updated: Yes - My Orders Last 24 Hours: My Active Orders 07/31/18 11:01 Orthostatic Vital Signs [RC] Q6HR 07/31/18 11:02 Atropine/Diphenoxylate [Lomotil 0.025-2.5 MG] 1 tab PO Q4H PRN 07/31/18 11:15 Sodium Chloride 0.9% [Normal Saline] 1,000 ml IV ASDIRECTED 08/01/18 12:00 Potassium Chloride [Klor-Con M20] 40 meq PO ONETIME ONE 08/01/18 17:00 Potassium Chloride [Klor-Con M20] 40 meq PO ONETIME ONE 08/02/18 05:11 POTASSIUM,K [CHEM] AM - Plan Plan:: ASSESSMENT AND PLAN - Alcoholic hepatitis -bilirubin remains elevated at 14 -Normal saline 125 mL per hour -Repeat liver labs in the morning -Symptomatic management for pain or nausea Alcohol abuse - remains very weak, and no longer delirious -CIWAA protocol with lorazepam as indicated -Gabapentin 200 mg 3 times daily for 5 days (start on 07/29) -Haldol for breakthrough agitation -Melatonin at bedtime -72 hour hold, proceed with commitment process Hypokalemia - potassium level low today -oral potassium replacement -Recheck again in the morning Tobacco dependence - no interest in quitting at this time. -Nicotine patch Maintenance issues - - DVT prophylaxis - mechanical with severe thrombocytopenia - GI prophylaxis - PPI - Nutrition - regular diet - Preston catheter - placed for strict intake and output monitoring in this critically ill patient, I anticipate removal tomorrow. Urine output has remained on the low side of normal Disposition - I would anticipate discharge to inpatient alcohol treatment after the hospital stay
--- NOTE | 2018-08-01 09:39 | LETTER ---
08/01/2018 RE: BRYAN HERNANDEZ : 1980 To Whom It May Concern: Mr. Hernandez is a 37-year-old gentleman who is currently hospitalized at [facility] in [place], [place] in the intensive care unit. Mr. Hernandez has a long- standing history of alcohol use and abuse. 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 During that hospitalization, he had severe alcohol withdrawal. After he recovered from his alcohol withdrawal, plan had been for alcohol treatment. He left our facility against medical advice, did resume drinking and then later went to detox, but refused alcohol treatment. Since then, he has been consuming alcohol and has become progressively more weak to the point where he was falling several times a day in his apartment. He returned to our facility last week, after he fell and was unable to get up at home. He again was intoxicated when he arrived and has gone through alcohol withdrawal. He remains extremely weak, but has refused any suggestion of treatment for his alcoholism. He again had shown significant elevation in his bilirubin consistent with alcoholic hepatitis and underlying liver cirrhosis. I have told Mr. Hernandez many times that, if he does not stop drinking, I do not expect that he will live more than another year or two because of his medical problems related to alcohol use. I strongly believe that Mr. Hernandez should be committed for alcohol treatment and that he does not have the insight to make this decision for himself. If there are any further questions concerning these issues, please feel free to contact me. Sincerely, /[id number]
[2018-08-01] MEDS: Melatonin 3 MG Tab PO SCH (20:33)
[2018-08-02] MEDS: Ibuprofen 600 MG Tab PO PRN ×4 (03:06→20:34)
[2018-08-02] MEDS: Pantoprazole 40 MG Tab.CR PO SCH (07:57)
[2018-08-02] MEDS: Nicotine 14 MG/24 Hr Patch TRDERM SCH (07:59)
[2018-08-02] MEDS: Folic Acid 1 MG Tab PO SCH (07:59)
[2018-08-02] MEDS: DULoxetine 30 MG Cap PO SCH ×3 (07:59→20:34)
[2018-08-02] MEDS: Thiamine 100 MG Tab PO SCH (08:00)
[2018-08-02] MEDS: Atropine/Diphenoxylate 0.025-2.5 MG Tab PO PRN (08:03)
--- NOTE | 2018-08-02 09:01 | PCM.PN ---
- General Info Date of Service: 08/02/18 Subjective Update: Mr. Knowles has continued to show slow improvement in overall strength and has been working with physical therapy. Tolerating current diet but continues to experience loose stools although not overt diarrhea. Currently experiencing muscular pain in his neck and extending into the skull. Bilirubin level continues to slowly increase, he remains very jaundice. - Review of Systems General: Reports: Weakness. Denies: Fever, Chills Pulmonary: Reports: No Symptoms Cardiovascular: Reports: No Symptoms Gastrointestinal: Reports: No Symptoms - Patient Data Vitals - Most Recent: Last Vital Signs Temp 96.2 F 08/02/18 08:09 Pulse 91 08/02/18 08:09 Resp 19 08/02/18 08:09 BP 124/87 08/02/18 08:09 Pulse Ox 98 08/02/18 08:09 Orthostatic Blood Pressure [ 107/48 Standing] Orthostatic Blood Pressure [ 107/73 Sitting] Orthostatic Blood Pressure [ 121/83 Supine] Weight - Most Recent: 165 lb 12.602 oz I&O - Last 24 Hours: Intake & Output 08/01/18 08/02/18 08/02/18 22:59 06:59 14:59 Intake Total 700 Balance 700 Lab Results Last 24 Hours: Laboratory Results - last 24 hr 08/02/18 08/02/18 Range/Units 04:45 04:45 PT 12.8 H (9.5-12.0) sec INR 1.17 (0.80-1.20) Sodium 138 L (140-148) mmol/L Potassium 3.8 (3.6-5.2) mmol/L Chloride 104 (100-108) mmol/L Carbon Dioxide 26 (21-32) mmol/L Anion Gap 11.8 (5.0-14.0) mmol/L BUN 4 L D (7-18) mg/dL Creatinine 0.6 L (0.8-1.3) mg/dL Est Cr Clr Drug Dosing 182.78 mL/min Estimated GFR (MDRD) > 60 (>60) Glucose 112 H (74-106) mg/dL Calcium 8.6 (8.5-10.1) mg/dL Total Bilirubin 15.8 H (0.2-1.0) mg/dL AST 100 H (15-37) U/L ALT 90 H (12-78) U/L Alkaline Phosphatase 295 H (46-116) U/L Total Protein 5.3 L (6.4-8.2) g/dL Albumin 1.9 L (3.4-5.0) g/dL Globulin 3.4 (2.3-3.5) g/dL Albumin/Globulin Ratio 0.6 L (1.2-2.2) Med Orders - Current: Current Medications Citalopram Hydrobromide (Celexa) 20 mg PO DAILY [facility] Diphenoxylate HCl/Atropine (Lomotil 0.025-2.5 Mg) 1 tab PO Q4H PRN PRN Reason: Diarrhea Last Admin: 08/02/18 08:03 Dose: 1 tab Duloxetine HCl (Cymbalta) 30 mg PO BID [facility] Folic Acid (Folic Acid) 1 mg PO DAILY [facility] Last Admin: 08/02/18 07:59 Dose: 1 mg Ibuprofen (Motrin) 600 mg PO Q6H PRN PRN Reason: Pain/Fever Last Admin: 08/02/18 03:06 Dose: 600 mg Magnesium Hydroxide (Milk Of Magnesia) 30 ml PO Q12H PRN PRN Reason: Constipation Melatonin (Melatonin) 9 mg PO BEDTIME [facility] Last Admin: 08/01/18 20:33 Dose: 9 mg Nicotine (Habitrol) 14 mg TRDERM DAILY [facility] Last Admin: 08/02/18 07:59 Dose: 14 mg Ondansetron HCl (Zofran Odt) 4 mg PO Q6H PRN PRN Reason: Nausea able to take PO Ondansetron HCl (Zofran) 4 mg IV Q6H PRN PRN Reason: Nausea/Vomiting Pantoprazole Sodium (Protonix) 40 mg PO ACBREAKFAST [facility] Last Admin: 08/02/18 07:57 Dose: 40 mg Senna/Docusate Sodium (Senna Plus) 1 tab PO BID PRN PRN Reason: Constipation Thiamine HCl (Vitamin B-1) 100 mg PO DAILY [facility] Last Admin: 08/01/18 08:19 Dose: 100 mg Discontinued Medications Duloxetine HCl (Cymbalta) 30 mg PO DAILY [facility] Last Admin: 08/02/18 07:59 Dose: 30 mg Gabapentin (Neurontin) 400 mg PO TID [facility] Last Admin: 07/29/18 10:03 Dose: Not Given Gabapentin (Neurontin) 200 mg PO TID [facility] Last Admin: 08/01/18 13:21 Dose: 200 mg Haloperidol Lactate (Haldol) 2 mg IVPUSH Q4H PRN PRN Reason: Agitation Last Admin: 07/28/18 01:45 Dose: 2 mg Haloperidol Lactate (Haldol) 5 mg IM ONETIME STA Stop: 07/30/18 06:02 Last Admin: 07/30/18 06:16 Dose: 5 mg Multivitamins/Minerals 10 ml/Thiamine HCl 100 mg/ Folic Acid 1 mg/ Magnesium Sulfate 3 gm/ Sodium Chloride 1,017.2 mls @ 1,000 mls/hr IV ASDIRECTED [facility] Multivitamins/Minerals 10 ml/Thiamine HCl 100 mg/ Folic Acid 1 mg/ Magnesium Sulfate 3 gm/ Sodium Chloride 1,017.2 mls @ 500 mls/hr IV ASDIRECTED ONE Stop: 07/24/18 19:02 Last Admin: 07/24/18 17:03 Dose: 500 mls/hr Dextrose/Sodium Chloride (Dextrose 5%-Normal Saline) 1,000 mls @ 125 mls/hr IV ASDIRECTED [facility] Last Admin: 07/26/18 10:23 Dose: 125 mls/hr Potassium Chloride 20 meq/Lidocaine HCl 2 ml/ Sodium Chloride 112 mls @ 50 mls/ hr IV Q2H [facility] Stop: 07/24/18 22:03 Last Admin: 07/24/18 22:00 Dose: 50 mls/hr Potassium Chloride (Kcl 20 Meq In Water 100 Ml) Confirm Administered Dose 200 mls @ as directed .ROUTE .STK-MED ONE Stop: 07/24/18 19:43 Last Admin: 07/24/18 19:49 Dose: Not Given Potassium Chloride 20 meq/ (Premix) 0 mls @ 50 mls/hr IV ONETIME ONE Stop: 07/25/18 06:00 Last Admin: 07/25/18 10:06 Dose: Not Given Potassium Chloride (Kcl 20 Meq In Water 100 Ml) 100 mls @ 50 mls/hr IV Q2H [facility] Stop: 07/25/18 10:59 Last Admin: 07/25/18 09:02 Dose: 50 mls/hr Potassium Chloride 20 meq/Lidocaine HCl 2 ml/ Sodium Chloride 112 mls @ 50 mls/ hr IV Q2H [facility] Stop: 07/25/18 18:29 Last Admin: 07/25/18 17:11 Dose: 50 mls/hr Potassium Chloride 20 meq/Lidocaine HCl 2 ml/ Sodium Chloride 112 mls @ 56 mls/ hr IV Q2H [facility] Stop: 07/26/18 13:29 Last Admin: 07/26/18 12:31 Dose: 56 mls/hr Potassium Chloride/Dextrose/Sod Cl (D5 1/2 Ns W/ 20 Meq/L Kcl) 1,000 mls @ 75 mls/hr IV ASDIRECTED [facility] Last Admin: 07/27/18 03:56 Dose: 75 mls/hr Potassium Chloride/Dextrose/Sod Cl (D5 1/2 Ns W/ 20 Meq/L Kcl) 1,000 mls @ 50 mls/hr IV ASDIRECTED [facility] Last Admin: 07/29/18 18:36 Dose: 50 mls/hr Potassium Chloride 20 meq/Lidocaine HCl 2 ml/ Sodium Chloride 112 mls @ 50 mls/ hr IV Q2H [facility] Stop: 07/28/18 13:59 Last Admin: 07/28/18 12:23 Dose: 50 mls/hr Sodium Chloride (Normal Saline) 500 mls @ 500 mls/hr IV .BOLUS ONE Stop: 07/28/18 19:36 Last Admin: 07/28/18 18:40 Dose: 500 mls/hr Potassium Chloride 20 meq/ (Premix) 100 mls @ 50 mls/hr IV Q2H [facility] Stop: 07/31/18 08:00 Last Admin: 07/31/18 06:35 Dose: 50 mls/hr Potassium Chloride 20 meq/Lidocaine HCl 2 ml/ Sodium Chloride 112 mls @ 56 mls/ hr IV ONETIME ONE Stop: 07/31/18 10:29 Last Admin: 07/31/18 08:27 Dose: 56 mls/hr Sodium Chloride (Normal Saline) 1,000 mls @ 125 mls/hr IV ASDIRECTED [facility] Last Admin: 08/01/18 03:23 Dose: 125 mls/hr Lidocaine HCl (Xylocaine-Mpf 1%) 2 ml INJECT ONETIME ONE Stop: 07/25/18 06:02 Last Admin: 07/25/18 06:32 Dose: 2 ml Lidocaine HCl (Xylocaine-Mpf 1%) 2 ml INJECT ONETIME ONE Stop: 07/31/18 05:56 Last Admin: 07/31/18 06:41 Dose: 2 ml Loperamide HCl (Imodium) 2 mg PO Q4H PRN PRN Reason: Diarrhea Last Admin: 07/31/18 10:17 Dose: 2 mg Lorazepam (Ativan) 0 mg PO ASDIRECTED [facility]; Protocol Last Admin: 07/29/18 15:46 Dose: 1 mg Lorazepam (Ativan) 0 mg IV ASDIRECTED [facility]; Protocol Last Admin: 07/28/18 08:13 Dose: 2 mg Lorazepam (Ativan) 2 mg IVPUSH ASDIRECTED PRN PRN Reason: Seizures Last Admin: 07/28/18 09:00 Dose: 2 mg Pantoprazole Sodium (Protonix Iv) 40 mg IV DAILY [facility] Last Admin: 07/24/18 19:52 Dose: 40 mg Pantoprazole Sodium (Protonix Iv) 40 mg IV Q24H [facility] Last Admin: 07/26/18 16:11 Dose: 40 mg Potassium Chloride (Klor-Con M20) 40 meq PO ONETIME ONE Stop: 07/31/18 06:01 Last Admin: 07/31/18 06:31 Dose: 40 meq Potassium Chloride (Klor-Con M20) 40 meq PO ONETIME ONE Stop: 07/31/18 12:01 Last Admin: 07/31/18 11:58 Dose: 40 meq Potassium Chloride (Klor-Con M20) 40 meq PO ONETIME ONE Stop: 08/01/18 09:01 Last Admin: 08/01/18 08:22 Dose: 40 meq Potassium Chloride (Klor-Con M20) 40 meq PO ONETIME ONE Stop: 08/01/18 12:01 Last Admin: 08/01/18 11:18 Dose: 40 meq Potassium Chloride (Klor-Con M20) 40 meq PO ONETIME ONE Stop: 08/01/18 17:01 Last Admin: 08/01/18 17:03 Dose: 40 meq - Exam Quality Assessment: DVT Prophylaxis General: Alert, Oriented, Cooperative, No Acute Distress Lungs: Clear to Auscultation, Normal Respiratory Effort Cardiovascular: Regular Rate, Regular Rhythm, No Murmurs GI/Abdominal Exam: Soft, Non-Tender, No Organomegaly, No Distention Extremities: Non-Tender, No Pedal Edema - Problem List Review Problem List Initiated/Reviewed/Updated: Yes - My Orders Last 24 Hours: My Active Orders 08/01/18 10:33 Communication Order [RC] ASDIRECTED 08/01/18 15:29 PT Evaluation and Treatment [CONS] Routine 08/01/18 15:44 Discontinue Telemetry Monitoring [Cardiac Monitoring Discontinue] [RC] Click to Edit 08/02/18 09:00 Citalopram [Celexa] 20 mg PO DAILY DULoxetine [Cymbalta] 30 mg PO BID 08/03/18 05:00 COMPREHENSIVE METABOLIC PN,CMP [CHEM] Timed INR,PT,PROTHROMBIN TIME [COAG] Timed - Plan Plan:: ASSESSMENT AND PLAN - Alcoholic hepatitis/cirrhosis -bilirubin remains elevated, now close to 16 -Saline lock IV -Repeat liver labs in the morning -Symptomatic management for pain or nausea Alcohol abuse - remains very weak, alcohol withdrawal has resolved -Melatonin at bedtime -72 hour hold, proceed with commitment process Hypokalemia - potassium level now within normal range -Recheck again in the morning Tobacco dependence - no interest in quitting at this time. -Nicotine patch Maintenance issues - - DVT prophylaxis - mechanical - GI prophylaxis - PPI - Nutrition - regular diet - Preston catheter - removed yesterday Disposition - I would anticipate discharge to inpatient alcohol treatment after the hospital stay
[2018-08-02] MEDS: Citalopram 20 MG Tab PO SCH (09:56)
[2018-08-02] MEDS: Melatonin 3 MG Tab PO SCH (20:34)
--- NOTE | 2018-08-02 22:26 | PCM.SN ---
- Free Text/Narrative Note: time: 22:00 call from ICU Nurse, request fecal occult stool test reports early in shift had a brown colored stool, now has a unusual looking reddish brown stool vital signs 36.1-84 B/P 155/61 O2 sat 92% A: stool changes P: order fecal occult stool x 3, hemoglobin and hematocrit now. continue present plan of care.
[2018-08-03] MEDS ORDERED: HYDROmorphone 0.5 MG/0.5 ML Syringe IVPUSH PRN (01:06)
[2018-08-03] MEDS: Ibuprofen 600 MG Tab PO PRN (03:03)
[2018-08-03] MEDS: Pantoprazole 40 MG Tab.CR PO SCH (07:45)
[2018-08-03] MEDS: Thiamine 100 MG Tab PO SCH (08:05)
[2018-08-03] MEDS: Citalopram 20 MG Tab PO SCH (08:05)
[2018-08-03] MEDS: Folic Acid 1 MG Tab PO SCH (08:06)
[2018-08-03] MEDS: Nicotine 14 MG/24 Hr Patch TRDERM SCH (08:06)
[2018-08-03] MEDS: DULoxetine 30 MG Cap PO SCH ×2 (08:06→20:37)
--- NOTE | 2018-08-03 08:40 | PCM.PN ---
- General Info Date of Service: 08/03/18 Subjective Update: Mr. Knowles continues to experience slow increase in bilirubin level. Over the last 24 hours is had some difficulty with headache and ongoing difficulty with insomnia. - Patient Data Vitals - Most Recent: Last Vital Signs Temp 96.5 F 08/03/18 07:51 Pulse 84 08/03/18 07:51 Resp 20 08/03/18 07:51 BP 122/69 08/03/18 07:51 Pulse Ox 97 08/03/18 07:51 Orthostatic Blood Pressure [ 107/48 Standing] Orthostatic Blood Pressure [ 107/73 Sitting] Orthostatic Blood Pressure [ 121/83 Supine] Weight - Most Recent: 165 lb 12.602 oz I&O - Last 24 Hours: Intake & Output 08/02/18 08/03/18 08/03/18 22:59 06:59 14:59 Intake Total 240 Output Total 200 200 Balance -200 40 Lab Results Last 24 Hours: Laboratory Results - last 24 hr 08/02/18 08/03/18 08/03/18 Range/Units 22:22 05:27 05:27 WBC (4.5-11.0) K/uL RBC (4.30-5.90) M/uL Hgb 10.4 L (12.0-15.0) g/dL Hct 29.5 L (40.0-54.0) % MCV (80-98) fL MCH (27-31) pg MCHC (32-36) % Plt Count (150-400) K/uL Add Manual Diff Neutrophils % (Manual) (36-66) % Band Neutrophils % (5-11) % Lymphocytes % (Manual) (24-44) % Monocytes % (Manual) (2-6) % PT 12.1 H (9.5-12.0) sec INR 1.11 (0.80-1.20) Sodium 133 L (140-148) mmol/L Potassium 3.6 (3.6-5.2) mmol/L Chloride 99 L (100-108) mmol/L Carbon Dioxide 27 (21-32) mmol/L Anion Gap 10.6 (5.0-14.0) mmol/L BUN 5 L (7-18) mg/dL Creatinine 0.4 L (0.8-1.3) mg/dL Est Cr Clr Drug Dosing 274.17 mL/min Estimated GFR (MDRD) > 60 (>60) Glucose 103 (74-106) mg/dL Calcium 8.7 (8.5-10.1) mg/dL Total Bilirubin 16.2 H (0.2-1.0) mg/dL AST 102 H (15-37) U/L ALT 97 H (12-78) U/L Alkaline Phosphatase 299 H (46-116) U/L Total Protein 5.1 L (6.4-8.2) g/dL Albumin 1.8 L (3.4-5.0) g/dL Globulin 3.3 (2.3-3.5) g/dL Albumin/Globulin Ratio 0.6 L (1.2-2.2) 08/03/18 Range/Units 06:20 WBC 9.7 (4.5-11.0) K/uL RBC 3.18 L (4.30-5.90) M/uL Hgb 10.5 L (12.0-15.0) g/dL Hct 29.9 L (40.0-54.0) % MCV 94 (80-98) fL MCH 33 H (27-31) pg MCHC 35 (32-36) % Plt Count 195 (150-400) K/uL Add Manual Diff Yes Neutrophils % (Manual) 65 (36-66) % Band Neutrophils % 5 (5-11) % Lymphocytes % (Manual) 17 L (24-44) % Monocytes % (Manual) 13 H (2-6) % PT (9.5-12.0) sec INR (0.80-1.20) Sodium (140-148) mmol/L Potassium (3.6-5.2) mmol/L Chloride (100-108) mmol/L Carbon Dioxide (21-32) mmol/L Anion Gap (5.0-14.0) mmol/L BUN (7-18) mg/dL Creatinine (0.8-1.3) mg/dL Est Cr Clr Drug Dosing mL/min Estimated GFR (MDRD) (>60) Glucose (74-106) mg/dL Calcium (8.5-10.1) mg/dL Total Bilirubin (0.2-1.0) mg/dL AST (15-37) U/L ALT (12-78) U/L Alkaline Phosphatase (46-116) U/L Total Protein (6.4-8.2) g/dL Albumin (3.4-5.0) g/dL Globulin (2.3-3.5) g/dL Albumin/Globulin Ratio (1.2-2.2) Td Results Last 24 Hours: Microbiology 08/02/18 22:16 Stool Occult Blood (TD) - Final Stool / Feces Med Orders - Current: Current Medications Citalopram Hydrobromide (Celexa) 20 mg PO DAILY [facility] Last Admin: 08/03/18 08:05 Dose: 20 mg Diphenoxylate HCl/Atropine (Lomotil 0.025-2.5 Mg) 1 tab PO Q4H PRN PRN Reason: Diarrhea Last Admin: 08/02/18 08:03 Dose: 1 tab Duloxetine HCl (Cymbalta) 30 mg PO BID [facility] Last Admin: 08/03/18 08:06 Dose: 30 mg Folic Acid (Folic Acid) 1 mg PO DAILY [facility] Last Admin: 08/03/18 08:06 Dose: 1 mg Ketorolac Tromethamine (Toradol) 30 mg IVPUSH Q6H PRN PRN Reason: Pain Stop: 08/08/18 08:36 Magnesium Hydroxide (Milk Of Magnesia) 30 ml PO Q12H PRN PRN Reason: Constipation Melatonin (Melatonin) 9 mg PO BEDTIME [facility] Last Admin: 08/02/18 20:34 Dose: 9 mg Nicotine (Habitrol) 14 mg TRDERM DAILY [facility] Last Admin: 08/03/18 08:06 Dose: 14 mg Ondansetron HCl (Zofran Odt) 4 mg PO Q6H PRN PRN Reason: Nausea able to take PO Last Admin: 08/02/18 15:15 Dose: 4 mg Ondansetron HCl (Zofran) 4 mg IV Q6H PRN PRN Reason: Nausea/Vomiting Pantoprazole Sodium (Protonix) 40 mg PO ACBREAKFAST [facility] Last Admin: 08/03/18 07:45 Dose: 40 mg Potassium Chloride (Klor-Con M20) 40 meq PO ONETIME ONE Stop: 08/03/18 08:36 Potassium Chloride (Klor-Con M20) 40 meq PO ONETIME ONE Stop: 08/03/18 17:01 Senna/Docusate Sodium (Senna Plus) 1 tab PO BID PRN PRN Reason: Constipation Thiamine HCl (Vitamin B-1) 100 mg PO DAILY [facility] Last Admin: 08/03/18 08:05 Dose: 100 mg Discontinued Medications Duloxetine HCl (Cymbalta) 30 mg PO DAILY [facility] Last Admin: 08/02/18 07:59 Dose: 30 mg Gabapentin (Neurontin) 400 mg PO TID [facility] Last Admin: 07/29/18 10:03 Dose: Not Given Gabapentin (Neurontin) 200 mg PO TID [facility] Last Admin: 08/01/18 13:21 Dose: 200 mg Haloperidol Lactate (Haldol) 2 mg IVPUSH Q4H PRN PRN Reason: Agitation Last Admin: 07/28/18 01:45 Dose: 2 mg Haloperidol Lactate (Haldol) 5 mg IM ONETIME STA Stop: 07/30/18 06:02 Last Admin: 07/30/18 06:16 Dose: 5 mg Hydromorphone HCl (Dilaudid) 0.5 mg IVPUSH Q2H PRN PRN Reason: Headache Last Admin: 08/03/18 01:19 Dose: 0.5 mg Multivitamins/Minerals 10 ml/Thiamine HCl 100 mg/ Folic Acid 1 mg/ Magnesium Sulfate 3 gm/ Sodium Chloride 1,017.2 mls @ 1,000 mls/hr IV ASDIRECTED [facility] Multivitamins/Minerals 10 ml/Thiamine HCl 100 mg/ Folic Acid 1 mg/ Magnesium Sulfate 3 gm/ Sodium Chloride 1,017.2 mls @ 500 mls/hr IV ASDIRECTED ONE Stop: 07/24/18 19:02 Last Admin: 07/24/18 17:03 Dose: 500 mls/hr Dextrose/Sodium Chloride (Dextrose 5%-Normal Saline) 1,000 mls @ 125 mls/hr IV ASDIRECTED [facility] Last Admin: 07/26/18 10:23 Dose: 125 mls/hr Potassium Chloride 20 meq/Lidocaine HCl 2 ml/ Sodium Chloride 112 mls @ 50 mls/ hr IV Q2H [facility] Stop: 07/24/18 22:03 Last Admin: 07/24/18 22:00 Dose: 50 mls/hr Potassium Chloride (Kcl 20 Meq In Water 100 Ml) Confirm Administered Dose 200 mls @ as directed .ROUTE .STK-MED ONE Stop: 07/24/18 19:43 Last Admin: 07/24/18 19:49 Dose: Not Given Potassium Chloride 20 meq/ (Premix) 0 mls @ 50 mls/hr IV ONETIME ONE Stop: 07/25/18 06:00 Last Admin: 07/25/18 10:06 Dose: Not Given Potassium Chloride (Kcl 20 Meq In Water 100 Ml) 100 mls @ 50 mls/hr IV Q2H [facility] Stop: 07/25/18 10:59 Last Admin: 07/25/18 09:02 Dose: 50 mls/hr Potassium Chloride 20 meq/Lidocaine HCl 2 ml/ Sodium Chloride 112 mls @ 50 mls/ hr IV Q2H [facility] Stop: 07/25/18 18:29 Last Admin: 07/25/18 17:11 Dose: 50 mls/hr Potassium Chloride 20 meq/Lidocaine HCl 2 ml/ Sodium Chloride 112 mls @ 56 mls/ hr IV Q2H [facility] Stop: 07/26/18 13:29 Last Admin: 07/26/18 12:31 Dose: 56 mls/hr Potassium Chloride/Dextrose/Sod Cl (D5 1/2 Ns W/ 20 Meq/L Kcl) 1,000 mls @ 75 mls/hr IV ASDIRECTED [facility] Last Admin: 07/27/18 03:56 Dose: 75 mls/hr Potassium Chloride/Dextrose/Sod Cl (D5 1/2 Ns W/ 20 Meq/L Kcl) 1,000 mls @ 50 mls/hr IV ASDIRECTED [facility] Last Admin: 07/29/18 18:36 Dose: 50 mls/hr Potassium Chloride 20 meq/Lidocaine HCl 2 ml/ Sodium Chloride 112 mls @ 50 mls/ hr IV Q2H [facility] Stop: 07/28/18 13:59 Last Admin: 07/28/18 12:23 Dose: 50 mls/hr Sodium Chloride (Normal Saline) 500 mls @ 500 mls/hr IV .BOLUS ONE Stop: 07/28/18 19:36 Last Admin: 07/28/18 18:40 Dose: 500 mls/hr Potassium Chloride 20 meq/ (Premix) 100 mls @ 50 mls/hr IV Q2H [facility] Stop: 07/31/18 08:00 Last Admin: 07/31/18 06:35 Dose: 50 mls/hr Potassium Chloride 20 meq/Lidocaine HCl 2 ml/ Sodium Chloride 112 mls @ 56 mls/ hr IV ONETIME ONE Stop: 07/31/18 10:29 Last Admin: 07/31/18 08:27 Dose: 56 mls/hr Sodium Chloride (Normal Saline) 1,000 mls @ 125 mls/hr IV ASDIRECTED [facility] Last Admin: 08/01/18 03:23 Dose: 125 mls/hr Ibuprofen (Motrin) 600 mg PO Q6H PRN PRN Reason: Pain/Fever Last Admin: 08/03/18 03:03 Dose: 600 mg Lidocaine HCl (Xylocaine-Mpf 1%) 2 ml INJECT ONETIME ONE Stop: 07/25/18 06:02 Last Admin: 07/25/18 06:32 Dose: 2 ml Lidocaine HCl (Xylocaine-Mpf 1%) 2 ml INJECT ONETIME ONE Stop: 07/31/18 05:56 Last Admin: 07/31/18 06:41 Dose: 2 ml Loperamide HCl (Imodium) 2 mg PO Q4H PRN PRN Reason: Diarrhea Last Admin: 07/31/18 10:17 Dose: 2 mg Lorazepam (Ativan) 0 mg PO ASDIRECTED [facility]; Protocol Last Admin: 07/29/18 15:46 Dose: 1 mg Lorazepam (Ativan) 0 mg IV ASDIRECTED [facility]; Protocol Last Admin: 07/28/18 08:13 Dose: 2 mg Lorazepam (Ativan) 2 mg IVPUSH ASDIRECTED PRN PRN Reason: Seizures Last Admin: 07/28/18 09:00 Dose: 2 mg Pantoprazole Sodium (Protonix Iv) 40 mg IV DAILY [facility] Last Admin: 07/24/18 19:52 Dose: 40 mg Pantoprazole Sodium (Protonix Iv) 40 mg IV Q24H [facility] Last Admin: 07/26/18 16:11 Dose: 40 mg Potassium Chloride (Klor-Con M20) 40 meq PO ONETIME ONE Stop: 07/31/18 06:01 Last Admin: 07/31/18 06:31 Dose: 40 meq Potassium Chloride (Klor-Con M20) 40 meq PO ONETIME ONE Stop: 07/31/18 12:01 Last Admin: 07/31/18 11:58 Dose: 40 meq Potassium Chloride (Klor-Con M20) 40 meq PO ONETIME ONE Stop: 08/01/18 09:01 Last Admin: 08/01/18 08:22 Dose: 40 meq Potassium Chloride (Klor-Con M20) 40 meq PO ONETIME ONE Stop: 08/01/18 12:01 Last Admin: 08/01/18 11:18 Dose: 40 meq Potassium Chloride (Klor-Con M20) 40 meq PO ONETIME ONE Stop: 08/01/18 17:01 Last Admin: 08/01/18 17:03 Dose: 40 meq - Exam Quality Assessment: DVT Prophylaxis General: Alert, Oriented, Cooperative, Mild Distress Lungs: Clear to Auscultation, Normal Respiratory Effort Cardiovascular: Regular Rate, Regular Rhythm, No Murmurs GI/Abdominal Exam: Soft, Non-Tender, No Organomegaly, No Distention Extremities: Non-Tender, No Pedal Edema - Problem List Review Problem List Initiated/Reviewed/Updated: Yes - My Orders Last 24 Hours: My Active Orders 08/02/18 09:00 Citalopram [Celexa] 20 mg PO DAILY DULoxetine [Cymbalta] 30 mg PO BID 08/03/18 08:35 Potassium Chloride [Klor-Con M20] 40 meq PO ONETIME ONE 08/03/18 08:36 Ketorolac [Toradol] 30 mg IVPUSH Q6H PRN 08/03/18 17:00 Potassium Chloride [Klor-Con M20] 40 meq PO ONETIME ONE 08/04/18 05:00 CBC WITH AUTO DIFF [HEME] Timed COMPREHENSIVE METABOLIC PN,CMP [CHEM] Timed - Plan Plan:: ASSESSMENT AND PLAN - Alcoholic hepatitis/cirrhosis -bilirubin remains elevated, now at 16 -Saline lock IV -Repeat liver labs in the morning -Symptomatic management for pain or nausea Alcohol abuse - remains very weak, alcohol withdrawal has resolved -Melatonin at bedtime -Currently on a court hold pending commitment Hypokalemia - potassium level now within normal range -Recheck again in the morning Tobacco dependence - no interest in quitting at this time. -Nicotine patch Maintenance issues - - DVT prophylaxis - mechanical - GI prophylaxis - PPI - Nutrition - regular diet - Preston catheter - removed yesterday Disposition - I would anticipate discharge to inpatient alcohol treatment after the hospital stay
[2018-08-03] MEDS ORDERED: Potassium Chloride 20 MEQ Tab.ER PO ONE ×2 (09:00→17:00)
[2018-08-03] MEDS: Ketorolac 30 MG/ML SDV IVPUSH PRN ×2 (10:46→19:52)
--- NOTE | 2018-08-03 11:47 | LETTER ---
08/03/2018 RE: BRYAN HERNANDEZ : 1980 To Whom It May Concern: This letter is in regard to Mr. Bryan Hernandez, who is a patient under my care at [facility] in [place], [place]. Mr. Hernandez is in the process of undergoing legal proceedings for commitment. It was my feeling yesterday after talking with Bryan that he would be able to participate and go to the court proceedings scheduled for today. Unfortunately, Mr. Hernandez did not have a good night and was unable to sleep complicated by pain from a headache. Mr. Hernandez does have underlying severe anxiety and I believe that this is a contributing factor to him not wanting to go to court today. We are in the process of trying to actively treat his anxiety, but medications have not yet taken full effect. Given his current condition, I believe it would be better if Mr. Hernandez participates in the court proceedings via telephone today given that the situation has changed in the last 24 hours. If there are any further questions concerning these issues, please feel free to contact me. Sincerely, /[phone]
[2018-08-03] MEDS: Atropine/Diphenoxylate 0.025-2.5 MG Tab PO PRN (19:52)
[2018-08-03] MEDS: Melatonin 3 MG Tab PO SCH (20:37)
[2018-08-03] MEDS ORDERED: LORazepam 1 MG Tab PO ONE (22:33)
[2018-08-03] MEDS: Divalproex Sodium Delayed-Release 250 MG Tab.CR PO SCH (22:52)
[2018-08-04] MEDS: Pantoprazole 40 MG Tab.CR PO SCH (07:32)
[2018-08-04] MEDS: Divalproex Sodium Delayed-Release 250 MG Tab.CR PO SCH ×2 (07:33→16:49)
[2018-08-04] MEDS: DULoxetine 30 MG Cap PO SCH ×2 (08:49→21:29)
[2018-08-04] MEDS: Nicotine 14 MG/24 Hr Patch TRDERM SCH (08:50)
[2018-08-04] MEDS: Citalopram 20 MG Tab PO SCH (08:50)
[2018-08-04] MEDS: Thiamine 100 MG Tab PO SCH (08:50)
[2018-08-04] MEDS: Folic Acid 1 MG Tab PO SCH (08:50)
--- NOTE | 2018-08-04 09:32 | PCM.PN ---
- General Info Date of Service: 08/04/18 Subjective Update: Mr. Knowles continues to experience difficulty with anxiety, started on Depakote 250 mg twice daily last night. Seems more relaxed and comfortable this morning. Denies significant abdominal pain but bilirubin is now up to 18.2. Functional Status: Reports: Pain Controlled, Tolerating Diet, Ambulating, Urinating - Review of Systems General: Reports: Weakness. Denies: Fever, Chills Pulmonary: Reports: No Symptoms Cardiovascular: Reports: No Symptoms Gastrointestinal: Reports: No Symptoms Skin: Reports: Jaundice - Patient Data Vitals - Most Recent: Last Vital Signs Temp 98.3 F 08/04/18 08:00 Pulse 85 08/04/18 08:00 Resp 14 08/04/18 08:00 BP 120/81 08/04/18 08:00 Pulse Ox 96 08/04/18 08:00 Orthostatic Blood Pressure [ 107/48 Standing] Orthostatic Blood Pressure [ 107/73 Sitting] Orthostatic Blood Pressure [ 121/83 Supine] Weight - Most Recent: 165 lb 12.602 oz I&O - Last 24 Hours: Intake & Output 08/03/18 08/04/18 08/04/18 22:59 06:59 14:59 Output Total 650 Balance -650 Lab Results Last 24 Hours: Laboratory Results - last 24 hr 08/04/18 08/04/18 Range/Units 05:05 05:05 WBC 9.4 (4.5-11.0) K/uL RBC 3.13 L (4.30-5.90) M/uL Hgb 10.0 L (12.0-15.0) g/dL Hct 29.3 L (40.0-54.0) % MCV 94 (80-98) fL MCH 32 H (27-31) pg MCHC 34 (32-36) % Plt Count 222 (150-400) K/uL Add Manual Diff Yes Neutrophils % (Manual) 75 H (36-66) % Band Neutrophils % 1 L (5-11) % Lymphocytes % (Manual) 12 L (24-44) % Monocytes % (Manual) 12 H (2-6) % Anisocytosis Moderate H Target Cells Many H Sodium 134 L (140-148) mmol/L Potassium 3.8 (3.6-5.2) mmol/L Chloride 99 L (100-108) mmol/L Carbon Dioxide 27 (21-32) mmol/L Anion Gap 11.8 (5.0-14.0) mmol/L BUN 5 L (7-18) mg/dL Creatinine 0.5 L (0.8-1.3) mg/dL Est Cr Clr Drug Dosing 219.33 mL/min Estimated GFR (MDRD) > 60 (>60) Glucose 90 (74-106) mg/dL Calcium 8.7 (8.5-10.1) mg/dL Total Bilirubin 18.2 H (0.2-1.0) mg/dL AST 113 H (15-37) U/L ALT 111 H (12-78) U/L Alkaline Phosphatase 326 H (46-116) U/L Total Protein 5.4 L (6.4-8.2) g/dL Albumin 2.0 L (3.4-5.0) g/dL Globulin 3.4 (2.3-3.5) g/dL Albumin/Globulin Ratio 0.6 L (1.2-2.2) Td Results Last 24 Hours: Microbiology 08/03/18 13:24 Occult Blood - Final Stool / Feces Med Orders - Current: Current Medications Citalopram Hydrobromide (Celexa) 20 mg PO DAILY [facility] Last Admin: 08/04/18 08:50 Dose: 20 mg Diphenoxylate HCl/Atropine (Lomotil 0.025-2.5 Mg) 1 tab PO Q4H PRN PRN Reason: Diarrhea Last Admin: 08/03/18 19:52 Dose: 1 tab Divalproex Sodium (Divalproex Sodium) 250 mg PO BIDMEALS [facility] Last Admin: 08/04/18 07:33 Dose: 250 mg Duloxetine HCl (Cymbalta) 30 mg PO BID [facility] Last Admin: 08/04/18 08:49 Dose: 30 mg Folic Acid (Folic Acid) 1 mg PO DAILY [facility] Last Admin: 08/04/18 08:50 Dose: 1 mg Ketorolac Tromethamine (Toradol) 30 mg IVPUSH Q6H PRN PRN Reason: Pain Stop: 08/08/18 08:36 Last Admin: 08/03/18 19:52 Dose: 30 mg Magnesium Hydroxide (Milk Of Magnesia) 30 ml PO Q12H PRN PRN Reason: Constipation Melatonin (Melatonin) 9 mg PO BEDTIME [facility] Last Admin: 08/03/18 20:37 Dose: 9 mg Nicotine (Habitrol) 14 mg TRDERM DAILY [facility] Last Admin: 08/04/18 08:50 Dose: 14 mg Ondansetron HCl (Zofran Odt) 4 mg PO Q6H PRN PRN Reason: Nausea able to take PO Last Admin: 08/02/18 15:15 Dose: 4 mg Ondansetron HCl (Zofran) 4 mg IV Q6H PRN PRN Reason: Nausea/Vomiting Pantoprazole Sodium (Protonix) 40 mg PO ACBREAKFAST [facility] Last Admin: 08/04/18 07:32 Dose: 40 mg Senna/Docusate Sodium (Senna Plus) 1 tab PO BID PRN PRN Reason: Constipation Thiamine HCl (Vitamin B-1) 100 mg PO DAILY [facility] Last Admin: 08/04/18 08:50 Dose: 100 mg Discontinued Medications Duloxetine HCl (Cymbalta) 30 mg PO DAILY [facility] Last Admin: 08/02/18 07:59 Dose: 30 mg Gabapentin (Neurontin) 400 mg PO TID [facility] Last Admin: 07/29/18 10:03 Dose: Not Given Gabapentin (Neurontin) 200 mg PO TID [facility] Last Admin: 08/01/18 13:21 Dose: 200 mg Haloperidol Lactate (Haldol) 2 mg IVPUSH Q4H PRN PRN Reason: Agitation Last Admin: 07/28/18 01:45 Dose: 2 mg Haloperidol Lactate (Haldol) 5 mg IM ONETIME STA Stop: 07/30/18 06:02 Last Admin: 07/30/18 06:16 Dose: 5 mg Hydromorphone HCl (Dilaudid) 0.5 mg IVPUSH Q2H PRN PRN Reason: Headache Last Admin: 08/03/18 01:19 Dose: 0.5 mg Multivitamins/Minerals 10 ml/Thiamine HCl 100 mg/ Folic Acid 1 mg/ Magnesium Sulfate 3 gm/ Sodium Chloride 1,017.2 mls @ 1,000 mls/hr IV ASDIRECTED [facility] Multivitamins/Minerals 10 ml/Thiamine HCl 100 mg/ Folic Acid 1 mg/ Magnesium Sulfate 3 gm/ Sodium Chloride 1,017.2 mls @ 500 mls/hr IV ASDIRECTED ONE Stop: 07/24/18 19:02 Last Admin: 07/24/18 17:03 Dose: 500 mls/hr Dextrose/Sodium Chloride (Dextrose 5%-Normal Saline) 1,000 mls @ 125 mls/hr IV ASDIRECTED [facility] Last Admin: 07/26/18 10:23 Dose: 125 mls/hr Potassium Chloride 20 meq/Lidocaine HCl 2 ml/ Sodium Chloride 112 mls @ 50 mls/ hr IV Q2H [facility] Stop: 07/24/18 22:03 Last Admin: 07/24/18 22:00 Dose: 50 mls/hr Potassium Chloride (Kcl 20 Meq In Water 100 Ml) Confirm Administered Dose 200 mls @ as directed .ROUTE .STK-MED ONE Stop: 07/24/18 19:43 Last Admin: 07/24/18 19:49 Dose: Not Given Potassium Chloride 20 meq/ (Premix) 0 mls @ 50 mls/hr IV ONETIME ONE Stop: 07/25/18 06:00 Last Admin: 07/25/18 10:06 Dose: Not Given Potassium Chloride (Kcl 20 Meq In Water 100 Ml) 100 mls @ 50 mls/hr IV Q2H [facility] Stop: 07/25/18 10:59 Last Admin: 07/25/18 09:02 Dose: 50 mls/hr Potassium Chloride 20 meq/Lidocaine HCl 2 ml/ Sodium Chloride 112 mls @ 50 mls/ hr IV Q2H [facility] Stop: 07/25/18 18:29 Last Admin: 07/25/18 17:11 Dose: 50 mls/hr Potassium Chloride 20 meq/Lidocaine HCl 2 ml/ Sodium Chloride 112 mls @ 56 mls/ hr IV Q2H [facility] Stop: 07/26/18 13:29 Last Admin: 07/26/18 12:31 Dose: 56 mls/hr Potassium Chloride/Dextrose/Sod Cl (D5 1/2 Ns W/ 20 Meq/L Kcl) 1,000 mls @ 75 mls/hr IV ASDIRECTED [facility] Last Admin: 07/27/18 03:56 Dose: 75 mls/hr Potassium Chloride/Dextrose/Sod Cl (D5 1/2 Ns W/ 20 Meq/L Kcl) 1,000 mls @ 50 mls/hr IV ASDIRECTED [facility] Last Admin: 07/29/18 18:36 Dose: 50 mls/hr Potassium Chloride 20 meq/Lidocaine HCl 2 ml/ Sodium Chloride 112 mls @ 50 mls/ hr IV Q2H [facility] Stop: 07/28/18 13:59 Last Admin: 07/28/18 12:23 Dose: 50 mls/hr Sodium Chloride (Normal Saline) 500 mls @ 500 mls/hr IV .BOLUS ONE Stop: 07/28/18 19:36 Last Admin: 07/28/18 18:40 Dose: 500 mls/hr Potassium Chloride 20 meq/ (Premix) 100 mls @ 50 mls/hr IV Q2H [facility] Stop: 07/31/18 08:00 Last Admin: 07/31/18 06:35 Dose: 50 mls/hr Potassium Chloride 20 meq/Lidocaine HCl 2 ml/ Sodium Chloride 112 mls @ 56 mls/ hr IV ONETIME ONE Stop: 07/31/18 10:29 Last Admin: 07/31/18 08:27 Dose: 56 mls/hr Sodium Chloride (Normal Saline) 1,000 mls @ 125 mls/hr IV ASDIRECTED [facility] Last Admin: 08/01/18 03:23 Dose: 125 mls/hr Ibuprofen (Motrin) 600 mg PO Q6H PRN PRN Reason: Pain/Fever Last Admin: 08/03/18 03:03 Dose: 600 mg Lidocaine HCl (Xylocaine-Mpf 1%) 2 ml INJECT ONETIME ONE Stop: 07/25/18 06:02 Last Admin: 07/25/18 06:32 Dose: 2 ml Lidocaine HCl (Xylocaine-Mpf 1%) 2 ml INJECT ONETIME ONE Stop: 07/31/18 05:56 Last Admin: 07/31/18 06:41 Dose: 2 ml Loperamide HCl (Imodium) 2 mg PO Q4H PRN PRN Reason: Diarrhea Last Admin: 07/31/18 10:17 Dose: 2 mg Lorazepam (Ativan) 0 mg PO ASDIRECTED [facility]; Protocol Last Admin: 07/29/18 15:46 Dose: 1 mg Lorazepam (Ativan) 0 mg IV ASDIRECTED [facility]; Protocol Last Admin: 07/28/18 08:13 Dose: 2 mg Lorazepam (Ativan) 2 mg IVPUSH ASDIRECTED PRN PRN Reason: Seizures Last Admin: 07/28/18 09:00 Dose: 2 mg Lorazepam (Ativan) 1 mg PO ONETIME ONE Stop: 08/03/18 22:34 Last Admin: 08/03/18 22:51 Dose: 1 mg Pantoprazole Sodium (Protonix Iv) 40 mg IV DAILY [facility] Last Admin: 07/24/18 19:52 Dose: 40 mg Pantoprazole Sodium (Protonix Iv) 40 mg IV Q24H [facility] Last Admin: 07/26/18 16:11 Dose: 40 mg Potassium Chloride (Klor-Con M20) 40 meq PO ONETIME ONE Stop: 07/31/18 06:01 Last Admin: 07/31/18 06:31 Dose: 40 meq Potassium Chloride (Klor-Con M20) 40 meq PO ONETIME ONE Stop: 07/31/18 12:01 Last Admin: 07/31/18 11:58 Dose: 40 meq Potassium Chloride (Klor-Con M20) 40 meq PO ONETIME ONE Stop: 08/01/18 09:01 Last Admin: 08/01/18 08:22 Dose: 40 meq Potassium Chloride (Klor-Con M20) 40 meq PO ONETIME ONE Stop: 08/01/18 12:01 Last Admin: 08/01/18 11:18 Dose: 40 meq Potassium Chloride (Klor-Con M20) 40 meq PO ONETIME ONE Stop: 08/01/18 17:01 Last Admin: 08/01/18 17:03 Dose: 40 meq Potassium Chloride (Klor-Con M20) 40 meq PO ONETIME ONE Stop: 08/03/18 09:01 Last Admin: 08/03/18 09:57 Dose: 40 meq Potassium Chloride (Klor-Con M20) 40 meq PO ONETIME ONE Stop: 08/03/18 17:01 Last Admin: 08/03/18 16:22 Dose: 40 meq - Exam Quality Assessment: DVT Prophylaxis General: Alert, Oriented, Cooperative, Mild Distress Lungs: Clear to Auscultation, Normal Respiratory Effort Cardiovascular: Regular Rate, Regular Rhythm, No Murmurs GI/Abdominal Exam: Soft, Non-Tender, No Organomegaly, No Distention Extremities: Non-Tender, No Pedal Edema - Problem List Review Problem List Initiated/Reviewed/Updated: Yes - My Orders Last 24 Hours: My Active Orders 08/03/18 08:36 Ketorolac [Toradol] 30 mg IVPUSH Q6H PRN 08/03/18 22:32 Divalproex Sodium 250 mg PO BIDMEALS - Plan Plan:: ASSESSMENT AND PLAN - Alcoholic hepatitis/cirrhosis -bilirubin remains elevated, now at 18. Maddrey score of 19, meld score 19 -Abdominal ultrasound to rule out obstruction -Saline lock IV -Repeat liver labs in the morning -Symptomatic management for pain or nausea Alcohol abuse - remains very weak, alcohol withdrawal has resolved -Melatonin at bedtime -Currently on a court hold pending commitment Severe anxiety -Citalopram 20 mg by mouth daily -Depakote 250 mg by mouth twice a day Hypokalemia - potassium level now within normal range -Recheck again in the morning Tobacco dependence - no interest in quitting at this time. -Nicotine patch Maintenance issues - - DVT prophylaxis - mechanical - GI prophylaxis - PPI - Nutrition - regular diet - Preston catheter - removed yesterday Disposition - I would anticipate discharge to inpatient alcohol treatment after the hospital stay
--- NOTE | 2018-08-04 14:43 | CRLUS ---
INDICATION: Increasing bilirubin. TECHNIQUE: Transabdominal imaging with attention to the right upper quadrant. COMPARISON: CT from 04/09/2018. FINDINGS: The pancreas is obscured by bowel gas. Mild hepatomegaly is again noted with severe fatty infiltration. There is no discrete intrahepatic mass. Trace amount of free fluid is seen adjacent to the liver. Hepatopetal flow is demonstrated in the main portal vein. Gallbladder is distended. Sludge is seen within the gallbladder, but there are no discrete gallstones. Gallbladder wall appears mildly thickened with a trace amount of free fluid adjacent to the fundus. No intrahepatic or extrahepatic bile duct dilatation. The CBD measures 4 mm. Right kidney is unremarkable. IMPRESSION: 1. Sludge is seen within the gallbladder, which is distended, with mild gallbladder wall thickening and a trace amount of pericholecystic edema. Findings are concerning for cholecystitis. This could be further assessed with a HIDA scan if clinically indicated. 2. No abnormal bile duct dilatation. 3. Fatty liver. Dictated by Ron Rivera MD @ 08/04/2018 2:42:07 PM Dictated by: Ron Rivera MD @ 08/04/2018 14:43:05 (Electronically Signed)
[2018-08-04] MEDS: Ampicillin/Sulbactam Na 1.5 GM in Sodium Chloride 0.9% 50 ML IV SCH ×2 (16:40→21:29)
[2018-08-04] MEDS: Melatonin 3 MG Tab PO SCH (21:29)
[2018-08-05] MEDS: Ampicillin/Sulbactam Na 1.5 GM in Sodium Chloride 0.9% 50 ML IV SCH ×4 (04:31→21:00)
[2018-08-05] MEDS: Pantoprazole 40 MG Tab.CR PO SCH (08:28)
[2018-08-05] MEDS: Citalopram 20 MG Tab PO SCH (08:30)
[2018-08-05] MEDS: Divalproex Sodium Delayed-Release 250 MG Tab.CR PO SCH ×2 (08:30→16:48)
[2018-08-05] MEDS: Folic Acid 1 MG Tab PO SCH (08:31)
[2018-08-05] MEDS: Thiamine 100 MG Tab PO SCH (08:32)
[2018-08-05] MEDS: DULoxetine 30 MG Cap PO SCH ×2 (08:33→20:47)
[2018-08-05] MEDS: Nicotine 14 MG/24 Hr Patch TRDERM SCH (08:33)
[2018-08-05] MEDS: Atropine/Diphenoxylate 0.025-2.5 MG Tab PO PRN ×2 (08:43→20:46)
[2018-08-05] MEDS ORDERED: Potassium Chloride 20 MEQ Tab.ER PO ONE ×2 (11:30→17:00)
--- NOTE | 2018-08-05 13:10 | PCM.PN ---
- General Info Date of Service: 08/05/18 Subjective Update: Mr. Knowles showing further improvement with better oral intake and overall strength. He is been up and walking around the room as well as out into the hallway. More agitated this morning and demanding that he be allowed to leave, law enforcement had to be called twice because of attempts to leave the building. When a long discussion concerning his behavior this morning and is agreed to act more appropriately if he is allowed to smoke 3 times a day. Bilirubin further elevated today, almost up to 22. He denies any abdominal pain or nausea. Abdominal ultrasound obtained yesterday shows no evidence of biliary ductal dilatation, bilirubin a disproportionately elevated compared to transaminase levels. Ultrasound did show evidence of cholecystitis with sludge in the gallbladder, pericholecyst systolic fluid, and mild gallbladder wall thickening. Functional Status: Reports: Tolerating Diet, Ambulating, Urinating - Review of Systems General: Reports: Weakness. Denies: Fever, Chills Pulmonary: Reports: No Symptoms Cardiovascular: Reports: No Symptoms Gastrointestinal: Reports: No Symptoms Skin: Reports: Jaundice - Patient Data Vitals - Most Recent: Last Vital Signs Temp 97.6 F 08/05/18 11:53 Pulse 89 08/05/18 11:53 Resp 20 08/05/18 11:53 BP 123/75 08/05/18 11:53 Pulse Ox 99 08/05/18 11:53 Orthostatic Blood Pressure [ 107/48 Standing] Orthostatic Blood Pressure [ 107/73 Sitting] Orthostatic Blood Pressure [ 121/83 Supine] Weight - Most Recent: 165 lb 12.602 oz I&O - Last 24 Hours: Intake & Output 08/04/18 08/05/18 08/05/18 22:59 06:59 14:59 Intake Total 720 Balance 720 Lab Results Last 24 Hours: Laboratory Results - last 24 hr 08/05/18 08/05/18 Range/Units 10:00 10:00 PT 12.6 H (9.5-12.0) sec INR 1.15 (0.80-1.20) Sodium 138 L (140-148) mmol/L Potassium 3.3 L (3.6-5.2) mmol/L Chloride 99 L (100-108) mmol/L Carbon Dioxide 28 (21-32) mmol/L Anion Gap 14.3 H (5.0-14.0) mmol/L BUN 5 L (7-18) mg/dL Creatinine 0.6 L (0.8-1.3) mg/dL Est Cr Clr Drug Dosing 182.78 mL/min Estimated GFR (MDRD) > 60 (>60) Glucose 81 (74-106) mg/dL Calcium 8.4 L (8.5-10.1) mg/dL Total Bilirubin 21.8 H (0.2-1.0) mg/dL AST 153 H (15-37) U/L ALT 142 H (12-78) U/L Alkaline Phosphatase 369 H (46-116) U/L Total Protein 5.7 L (6.4-8.2) g/dL Albumin 2.1 L (3.4-5.0) g/dL Globulin 3.6 H (2.3-3.5) g/dL Albumin/Globulin Ratio 0.6 L (1.2-2.2) Med Orders - Current: Current Medications Citalopram Hydrobromide (Celexa) 20 mg PO DAILY [facility] Last Admin: 08/05/18 08:30 Dose: 20 mg Diphenoxylate HCl/Atropine (Lomotil 0.025-2.5 Mg) 1 tab PO Q4H PRN PRN Reason: Diarrhea Last Admin: 08/05/18 08:43 Dose: 1 tab Divalproex Sodium (Divalproex Sodium) 250 mg PO BIDMEALS [facility] Last Admin: 08/05/18 08:30 Dose: 250 mg Duloxetine HCl (Cymbalta) 30 mg PO BID [facility] Last Admin: 08/05/18 08:33 Dose: 30 mg Folic Acid (Folic Acid) 1 mg PO DAILY [facility] Last Admin: 08/05/18 08:31 Dose: 1 mg Ampicillin Sodium/Sulbactam (Sodium 1.5 gm/ Sodium Chloride) 50 mls @ 100 mls/ hr IV Q6H [facility] Last Admin: 08/05/18 10:31 Dose: 100 mls/hr Ketorolac Tromethamine (Toradol) 30 mg IVPUSH Q6H PRN PRN Reason: Pain Stop: 08/08/18 08:36 Last Admin: 08/03/18 19:52 Dose: 30 mg Magnesium Hydroxide (Milk Of Magnesia) 30 ml PO Q12H PRN PRN Reason: Constipation Melatonin (Melatonin) 9 mg PO BEDTIME [facility] Last Admin: 08/04/18 21:29 Dose: 9 mg Nicotine (Habitrol) 14 mg TRDERM DAILY [facility] Last Admin: 08/05/18 08:33 Dose: Not Given Ondansetron HCl (Zofran Odt) 4 mg PO Q6H PRN PRN Reason: Nausea able to take PO Last Admin: 08/02/18 15:15 Dose: 4 mg Ondansetron HCl (Zofran) 4 mg IV Q6H PRN PRN Reason: Nausea/Vomiting Pantoprazole Sodium (Protonix) 40 mg PO ACBREAKFAST [facility] Last Admin: 08/05/18 08:28 Dose: 40 mg Senna/Docusate Sodium (Senna Plus) 1 tab PO BID PRN PRN Reason: Constipation Thiamine HCl (Vitamin B-1) 100 mg PO DAILY [facility] Last Admin: 08/05/18 08:32 Dose: 100 mg Discontinued Medications Duloxetine HCl (Cymbalta) 30 mg PO DAILY [facility] Last Admin: 08/02/18 07:59 Dose: 30 mg Gabapentin (Neurontin) 400 mg PO TID [facility] Last Admin: 07/29/18 10:03 Dose: Not Given Gabapentin (Neurontin) 200 mg PO TID [facility] Last Admin: 08/01/18 13:21 Dose: 200 mg Haloperidol Lactate (Haldol) 2 mg IVPUSH Q4H PRN PRN Reason: Agitation Last Admin: 07/28/18 01:45 Dose: 2 mg Haloperidol Lactate (Haldol) 5 mg IM ONETIME STA Stop: 07/30/18 06:02 Last Admin: 07/30/18 06:16 Dose: 5 mg Hydromorphone HCl (Dilaudid) 0.5 mg IVPUSH Q2H PRN PRN Reason: Headache Last Admin: 08/03/18 01:19 Dose: 0.5 mg Multivitamins/Minerals 10 ml/Thiamine HCl 100 mg/ Folic Acid 1 mg/ Magnesium Sulfate 3 gm/ Sodium Chloride 1,017.2 mls @ 1,000 mls/hr IV ASDIRECTED [facility] Multivitamins/Minerals 10 ml/Thiamine HCl 100 mg/ Folic Acid 1 mg/ Magnesium Sulfate 3 gm/ Sodium Chloride 1,017.2 mls @ 500 mls/hr IV ASDIRECTED ONE Stop: 07/24/18 19:02 Last Admin: 07/24/18 17:03 Dose: 500 mls/hr Dextrose/Sodium Chloride (Dextrose 5%-Normal Saline) 1,000 mls @ 125 mls/hr IV ASDIRECTED [facility] Last Admin: 07/26/18 10:23 Dose: 125 mls/hr Potassium Chloride 20 meq/Lidocaine HCl 2 ml/ Sodium Chloride 112 mls @ 50 mls/ hr IV Q2H [facility] Stop: 07/24/18 22:03 Last Admin: 07/24/18 22:00 Dose: 50 mls/hr Potassium Chloride (Kcl 20 Meq In Water 100 Ml) Confirm Administered Dose 200 mls @ as directed .ROUTE .STK-MED ONE Stop: 07/24/18 19:43 Last Admin: 07/24/18 19:49 Dose: Not Given Potassium Chloride 20 meq/ (Premix) 0 mls @ 50 mls/hr IV ONETIME ONE Stop: 07/25/18 06:00 Last Admin: 07/25/18 10:06 Dose: Not Given Potassium Chloride (Kcl 20 Meq In Water 100 Ml) 100 mls @ 50 mls/hr IV Q2H [facility] Stop: 07/25/18 10:59 Last Admin: 07/25/18 09:02 Dose: 50 mls/hr Potassium Chloride 20 meq/Lidocaine HCl 2 ml/ Sodium Chloride 112 mls @ 50 mls/ hr IV Q2H [facility] Stop: 07/25/18 18:29 Last Admin: 07/25/18 17:11 Dose: 50 mls/hr Potassium Chloride 20 meq/Lidocaine HCl 2 ml/ Sodium Chloride 112 mls @ 56 mls/ hr IV Q2H [facility] Stop: 07/26/18 13:29 Last Admin: 07/26/18 12:31 Dose: 56 mls/hr Potassium Chloride/Dextrose/Sod Cl (D5 1/2 Ns W/ 20 Meq/L Kcl) 1,000 mls @ 75 mls/hr IV ASDIRECTED [facility] Last Admin: 07/27/18 03:56 Dose: 75 mls/hr Potassium Chloride/Dextrose/Sod Cl (D5 1/2 Ns W/ 20 Meq/L Kcl) 1,000 mls @ 50 mls/hr IV ASDIRECTED [facility] Last Admin: 07/29/18 18:36 Dose: 50 mls/hr Potassium Chloride 20 meq/Lidocaine HCl 2 ml/ Sodium Chloride 112 mls @ 50 mls/ hr IV Q2H [facility] Stop: 07/28/18 13:59 Last Admin: 07/28/18 12:23 Dose: 50 mls/hr Sodium Chloride (Normal Saline) 500 mls @ 500 mls/hr IV .BOLUS ONE Stop: 07/28/18 19:36 Last Admin: 07/28/18 18:40 Dose: 500 mls/hr Potassium Chloride 20 meq/ (Premix) 100 mls @ 50 mls/hr IV Q2H [facility] Stop: 07/31/18 08:00 Last Admin: 07/31/18 06:35 Dose: 50 mls/hr Potassium Chloride 20 meq/Lidocaine HCl 2 ml/ Sodium Chloride 112 mls @ 56 mls/ hr IV ONETIME ONE Stop: 07/31/18 10:29 Last Admin: 07/31/18 08:27 Dose: 56 mls/hr Sodium Chloride (Normal Saline) 1,000 mls @ 125 mls/hr IV ASDIRECTED [facility] Last Admin: 08/01/18 03:23 Dose: 125 mls/hr Ibuprofen (Motrin) 600 mg PO Q6H PRN PRN Reason: Pain/Fever Last Admin: 08/03/18 03:03 Dose: 600 mg Lidocaine HCl (Xylocaine-Mpf 1%) 2 ml INJECT ONETIME ONE Stop: 07/25/18 06:02 Last Admin: 07/25/18 06:32 Dose: 2 ml Lidocaine HCl (Xylocaine-Mpf 1%) 2 ml INJECT ONETIME ONE Stop: 07/31/18 05:56 Last Admin: 07/31/18 06:41 Dose: 2 ml Loperamide HCl (Imodium) 2 mg PO Q4H PRN PRN Reason: Diarrhea Last Admin: 07/31/18 10:17 Dose: 2 mg Lorazepam (Ativan) 0 mg PO ASDIRECTED [facility]; Protocol Last Admin: 07/29/18 15:46 Dose: 1 mg Lorazepam (Ativan) 0 mg IV ASDIRECTED [facility]; Protocol Last Admin: 07/28/18 08:13 Dose: 2 mg Lorazepam (Ativan) 2 mg IVPUSH ASDIRECTED PRN PRN Reason: Seizures Last Admin: 07/28/18 09:00 Dose: 2 mg Lorazepam (Ativan) 1 mg PO ONETIME ONE Stop: 08/03/18 22:34 Last Admin: 08/03/18 22:51 Dose: 1 mg Pantoprazole Sodium (Protonix Iv) 40 mg IV DAILY [facility] Last Admin: 07/24/18 19:52 Dose: 40 mg Pantoprazole Sodium (Protonix Iv) 40 mg IV Q24H [facility] Last Admin: 07/26/18 16:11 Dose: 40 mg Potassium Chloride (Klor-Con M20) 40 meq PO ONETIME ONE Stop: 07/31/18 06:01 Last Admin: 07/31/18 06:31 Dose: 40 meq Potassium Chloride (Klor-Con M20) 40 meq PO ONETIME ONE Stop: 07/31/18 12:01 Last Admin: 07/31/18 11:58 Dose: 40 meq Potassium Chloride (Klor-Con M20) 40 meq PO ONETIME ONE Stop: 08/01/18 09:01 Last Admin: 08/01/18 08:22 Dose: 40 meq Potassium Chloride (Klor-Con M20) 40 meq PO ONETIME ONE Stop: 08/01/18 12:01 Last Admin: 08/01/18 11:18 Dose: 40 meq Potassium Chloride (Klor-Con M20) 40 meq PO ONETIME ONE Stop: 08/01/18 17:01 Last Admin: 08/01/18 17:03 Dose: 40 meq Potassium Chloride (Klor-Con M20) 40 meq PO ONETIME ONE Stop: 08/03/18 09:01 Last Admin: 08/03/18 09:57 Dose: 40 meq Potassium Chloride (Klor-Con M20) 40 meq PO ONETIME ONE Stop: 08/03/18 17:01 Last Admin: 08/03/18 16:22 Dose: 40 meq Potassium Chloride (Klor-Con M20) 40 meq PO ONETIME ONE Stop: 08/05/18 11:31 Last Admin: 08/05/18 11:24 Dose: 40 meq - Exam Quality Assessment: DVT Prophylaxis General: Alert, Oriented, Mild Distress HEENT: Scleral Icterus Lungs: Clear to Auscultation, Normal Respiratory Effort Cardiovascular: Regular Rate, Regular Rhythm, No Murmurs GI/Abdominal Exam: Soft, Non-Tender, No Organomegaly, No Distention Extremities: Non-Tender, No Pedal Edema - Problem List Review Problem List Initiated/Reviewed/Updated: Yes - My Orders Last 24 Hours: My Active Orders 08/04/18 16:00 Ampicillin/Sulbactam Na [Unasyn] 1.5 gm Sodium Chloride 0.9% [Normal Saline] 50 ml IV Q6H 08/06/18 05:00 COMPREHENSIVE METABOLIC PN,CMP [CHEM] Timed 08/06/18 05:11 BILIRUBIN DIRECT [CHEM] AM 08/06/18 08:00 Cholescintigraphy w Pharm Int [NM] Urgent - Plan Plan:: ASSESSMENT AND PLAN - Alcoholic hepatitis/cirrhosis -bilirubin remains elevated, now at 21. Evidence of cholecystitis identified on ultrasound obtained yesterday, no evidence of liver ductal dilatation. Essentially asymptomatic with slowly improving appetite and energy level. -Saline lock IV -Repeat liver labs in the morning including direct bilirubin -Continue Unasyn 1.5 g IV every 6 hours -CCK stimulated HIDA scan in a.m. -Symptomatic management for pain or nausea Alcohol abuse -alcohol withdrawal has resolved -Melatonin at bedtime -Currently on a court hold pending commitment Severe anxiety -Citalopram 20 mg by mouth daily -Depakote 250 mg by mouth twice a day Hypokalemia - potassium level low this morning -Oral iron replacement -Recheck again in the morning Tobacco dependence - no interest in quitting at this time. -Nicotine patch Maintenance issues - - DVT prophylaxis - mechanical - GI prophylaxis - PPI - Nutrition - regular diet - Preston catheter - removed, no current indication Disposition - I would anticipate discharge to inpatient alcohol treatment after the hospital stay
[2018-08-05] MEDS: Lactobacillus Rhamnosus GG (Probiotic) Cap PO SCH ×2 (13:30→20:46)
[2018-08-05] MEDS: Vancomycin 250 MG/5 ML ML Oral Solution PO SCH ×2 (17:40→21:00)
[2018-08-05] MEDS: Melatonin 3 MG Tab PO SCH (20:46)
[2018-08-06] MEDS: Vancomycin 250 MG/5 ML ML Oral Solution PO SCH ×4 (03:00→21:38)
[2018-08-06] MEDS: Ampicillin/Sulbactam Na 1.5 GM in Sodium Chloride 0.9% 50 ML IV SCH ×4 (03:00→21:37)
[2018-08-06] MEDS: Folic Acid 1 MG Tab PO SCH (10:53)
[2018-08-06] MEDS: Lactobacillus Rhamnosus GG (Probiotic) Cap PO SCH ×2 (10:53→21:38)
[2018-08-06] MEDS: Divalproex Sodium Delayed-Release 250 MG Tab.CR PO SCH ×2 (10:54→17:24)
[2018-08-06] MEDS: DULoxetine 30 MG Cap PO SCH ×2 (10:54→21:38)
[2018-08-06] MEDS: Pantoprazole 40 MG Tab.CR PO SCH (10:54)
[2018-08-06] MEDS: Thiamine 100 MG Tab PO SCH (10:54)
[2018-08-06] MEDS: Citalopram 20 MG Tab PO SCH (10:54)
[2018-08-06] MEDS: Nicotine 14 MG/24 Hr Patch TRDERM SCH (11:10)
--- NOTE | 2018-08-06 12:38 | NM ---
HEPATOBILIARY SCAN : Clinical History: Cholecystitis, elevated bilirubin Technique: Multiple scintographic images of the hepatobiliary system were obtained following the IV injection of 5.1 mCi of technetium 99m Choletec. Findings: There was only minimal diffuse uptake within the liver slightly beyond background level. No visualization of the intrahepatic biliary tree, common bile duct or gallbladder is seen. There is no intestinal activity. Impression:Vague diffuse uptake in the liver without significant biliary excretion. Considering the lack of intrahepatic biliary dilatation on the ultrasound, abnormal liver echotexture and ascites, this likely represents a diffuse hepatocellular disease. Gallbladder function is not evaluated
--- NOTE | 2018-08-06 14:35 | PCM.PN ---
- General Info Date of Service: 08/06/18 Subjective Update: There were no acute events overnight. The patient has not been sleeping well at night but did get a nap and today. he is not reporting any abdominal pain or nausea. Diarrhea seems a little bit better at this time. HIDA scan was completed this morning and did not show any uptake in the gallbladder which can be seen in diffuse hepatocellular disease. Functional Status: Reports: Pain Controlled, Tolerating Diet - Review of Systems General: Denies: Fever Gastrointestinal: Reports: Diarrhea. Denies: Abdominal Pain - Patient Data Vitals - Most Recent: Last Vital Signs Temp 36.5 C 08/06/18 12:00 Pulse 91 08/06/18 12:00 Resp 16 08/06/18 12:00 BP 116/72 08/06/18 12:00 Pulse Ox 96 08/06/18 12:00 Orthostatic Blood Pressure [ 107/48 Standing] Orthostatic Blood Pressure [ 107/73 Sitting] Orthostatic Blood Pressure [ 121/83 Supine] Weight - Most Recent: 77.927 kg I&O - Last 24 Hours: Intake & Output 08/05/18 08/06/18 08/06/18 22:59 06:59 14:59 Intake Total 150 350 400 Balance 150 350 400 Lab Results Last 24 Hours: Laboratory Results - last 24 hr 08/06/18 08/06/18 Range/Units 05:10 05:10 Sodium 139 L (140-148) mmol/L Potassium 3.7 (3.6-5.2) mmol/L Chloride 102 (100-108) mmol/L Carbon Dioxide 27 (21-32) mmol/L Anion Gap 13.7 (5.0-14.0) mmol/L BUN 6 L (7-18) mg/dL Creatinine 0.6 L (0.8-1.3) mg/dL Est Cr Clr Drug Dosing 189.41 mL/min Estimated GFR (MDRD) > 60 (>60) Glucose 92 (74-106) mg/dL Calcium 8.0 L (8.5-10.1) mg/dL Total Bilirubin 19.7 H (0.2-1.0) mg/dL Direct Bilirubin 15.26 H (0.0-0.2) mg/dL AST 161 H (15-37) U/L ALT 147 H (12-78) U/L Alkaline Phosphatase 352 H (46-116) U/L Total Protein 5.0 L (6.4-8.2) g/dL Albumin 1.8 L (3.4-5.0) g/dL Globulin 3.2 (2.3-3.5) g/dL Albumin/Globulin Ratio 0.6 L (1.2-2.2) Td Results Last 24 Hours: Microbiology 08/05/18 13:15 Clostridioides difficile (PCR) - Final Stool / Feces Positive C. Diff Toxin 08/04/18 22:16 Stool Occult Blood (TD) - Final Stool / Feces NEGATIVE OCCULT BLOOD REFERENCE RANGE: NEGATIVE Med Orders - Current: Current Medications Citalopram Hydrobromide (Celexa) 20 mg PO DAILY [facility] Last Admin: 08/06/18 10:54 Dose: 20 mg Divalproex Sodium (Divalproex Sodium) 250 mg PO BIDMEALS [facility] Last Admin: 08/06/18 10:54 Dose: 250 mg Duloxetine HCl (Cymbalta) 30 mg PO BID [facility] Last Admin: 08/06/18 10:54 Dose: 30 mg Folic Acid (Folic Acid) 1 mg PO DAILY [facility] Last Admin: 08/06/18 10:53 Dose: 1 mg Ampicillin Sodium/Sulbactam (Sodium 1.5 gm/ Sodium Chloride) 50 mls @ 100 mls/ hr IV Q6H [facility] Last Admin: 08/06/18 09:51 Dose: 100 mls/hr Ketorolac Tromethamine (Toradol) 30 mg IVPUSH Q6H PRN PRN Reason: Pain Stop: 08/08/18 08:36 Last Admin: 08/03/18 19:52 Dose: 30 mg Lactobacillus Rhamnosus (Culturelle) 1 cap PO BID [facility] Last Admin: 08/06/18 10:53 Dose: 1 cap Magnesium Hydroxide (Milk Of Magnesia) 30 ml PO Q12H PRN PRN Reason: Constipation Melatonin (Melatonin) 9 mg PO BEDTIME [facility] Last Admin: 08/05/18 20:46 Dose: 9 mg Nicotine (Habitrol) 14 mg TRDERM DAILY [facility] Last Admin: 08/06/18 11:10 Dose: Not Given Ondansetron HCl (Zofran Odt) 4 mg PO Q6H PRN PRN Reason: Nausea able to take PO Last Admin: 08/02/18 15:15 Dose: 4 mg Ondansetron HCl (Zofran) 4 mg IV Q6H PRN PRN Reason: Nausea/Vomiting Pantoprazole Sodium (Protonix) 40 mg PO ACBREAKFAST [facility] Last Admin: 08/06/18 10:54 Dose: 40 mg Senna/Docusate Sodium (Senna Plus) 1 tab PO BID PRN PRN Reason: Constipation Thiamine HCl (Vitamin B-1) 100 mg PO DAILY [facility] Last Admin: 08/06/18 10:54 Dose: 100 mg Vancomycin HCl (Vancocin 250 Mg/5 Ml Soln) 125 mg PO Q6HR [facility] Discontinued Medications Diphenoxylate HCl/Atropine (Lomotil 0.025-2.5 Mg) 1 tab PO Q4H PRN PRN Reason: Diarrhea Last Admin: 08/05/18 20:46 Dose: 1 tab Duloxetine HCl (Cymbalta) 30 mg PO DAILY [facility] Last Admin: 08/02/18 07:59 Dose: 30 mg Gabapentin (Neurontin) 400 mg PO TID [facility] Last Admin: 07/29/18 10:03 Dose: Not Given Gabapentin (Neurontin) 200 mg PO TID [facility] Last Admin: 08/01/18 13:21 Dose: 200 mg Haloperidol Lactate (Haldol) 2 mg IVPUSH Q4H PRN PRN Reason: Agitation Last Admin: 07/28/18 01:45 Dose: 2 mg Haloperidol Lactate (Haldol) 5 mg IM ONETIME STA Stop: 07/30/18 06:02 Last Admin: 07/30/18 06:16 Dose: 5 mg Hydromorphone HCl (Dilaudid) 0.5 mg IVPUSH Q2H PRN PRN Reason: Headache Last Admin: 08/03/18 01:19 Dose: 0.5 mg Multivitamins/Minerals 10 ml/Thiamine HCl 100 mg/ Folic Acid 1 mg/ Magnesium Sulfate 3 gm/ Sodium Chloride 1,017.2 mls @ 1,000 mls/hr IV ASDIRECTED [facility] Multivitamins/Minerals 10 ml/Thiamine HCl 100 mg/ Folic Acid 1 mg/ Magnesium Sulfate 3 gm/ Sodium Chloride 1,017.2 mls @ 500 mls/hr IV ASDIRECTED ONE Stop: 07/24/18 19:02 Last Admin: 07/24/18 17:03 Dose: 500 mls/hr Dextrose/Sodium Chloride (Dextrose 5%-Normal Saline) 1,000 mls @ 125 mls/hr IV ASDIRECTED [facility] Last Admin: 07/26/18 10:23 Dose: 125 mls/hr Potassium Chloride 20 meq/Lidocaine HCl 2 ml/ Sodium Chloride 112 mls @ 50 mls/ hr IV Q2H [facility] Stop: 07/24/18 22:03 Last Admin: 07/24/18 22:00 Dose: 50 mls/hr Potassium Chloride (Kcl 20 Meq In Water 100 Ml) Confirm Administered Dose 200 mls @ as directed .ROUTE .STK-MED ONE Stop: 07/24/18 19:43 Last Admin: 07/24/18 19:49 Dose: Not Given Potassium Chloride 20 meq/ (Premix) 0 mls @ 50 mls/hr IV ONETIME ONE Stop: 07/25/18 06:00 Last Admin: 07/25/18 10:06 Dose: Not Given Potassium Chloride (Kcl 20 Meq In Water 100 Ml) 100 mls @ 50 mls/hr IV Q2H [facility] Stop: 07/25/18 10:59 Last Admin: 07/25/18 09:02 Dose: 50 mls/hr Potassium Chloride 20 meq/Lidocaine HCl 2 ml/ Sodium Chloride 112 mls @ 50 mls/ hr IV Q2H [facility] Stop: 07/25/18 18:29 Last Admin: 07/25/18 17:11 Dose: 50 mls/hr Potassium Chloride 20 meq/Lidocaine HCl 2 ml/ Sodium Chloride 112 mls @ 56 mls/ hr IV Q2H [facility] Stop: 07/26/18 13:29 Last Admin: 07/26/18 12:31 Dose: 56 mls/hr Potassium Chloride/Dextrose/Sod Cl (D5 1/2 Ns W/ 20 Meq/L Kcl) 1,000 mls @ 75 mls/hr IV ASDIRECTED [facility] Last Admin: 07/27/18 03:56 Dose: 75 mls/hr Potassium Chloride/Dextrose/Sod Cl (D5 1/2 Ns W/ 20 Meq/L Kcl) 1,000 mls @ 50 mls/hr IV ASDIRECTED [facility] Last Admin: 07/29/18 18:36 Dose: 50 mls/hr Potassium Chloride 20 meq/Lidocaine HCl 2 ml/ Sodium Chloride 112 mls @ 50 mls/ hr IV Q2H [facility] Stop: 07/28/18 13:59 Last Admin: 07/28/18 12:23 Dose: 50 mls/hr Sodium Chloride (Normal Saline) 500 mls @ 500 mls/hr IV .BOLUS ONE Stop: 07/28/18 19:36 Last Admin: 07/28/18 18:40 Dose: 500 mls/hr Potassium Chloride 20 meq/ (Premix) 100 mls @ 50 mls/hr IV Q2H [facility] Stop: 07/31/18 08:00 Last Admin: 07/31/18 06:35 Dose: 50 mls/hr Potassium Chloride 20 meq/Lidocaine HCl 2 ml/ Sodium Chloride 112 mls @ 56 mls/ hr IV ONETIME ONE Stop: 07/31/18 10:29 Last Admin: 07/31/18 08:27 Dose: 56 mls/hr Sodium Chloride (Normal Saline) 1,000 mls @ 125 mls/hr IV ASDIRECTED [facility] Last Admin: 08/01/18 03:23 Dose: 125 mls/hr Ibuprofen (Motrin) 600 mg PO Q6H PRN PRN Reason: Pain/Fever Last Admin: 08/03/18 03:03 Dose: 600 mg Lidocaine HCl (Xylocaine-Mpf 1%) 2 ml INJECT ONETIME ONE Stop: 07/25/18 06:02 Last Admin: 07/25/18 06:32 Dose: 2 ml Lidocaine HCl (Xylocaine-Mpf 1%) 2 ml INJECT ONETIME ONE Stop: 07/31/18 05:56 Last Admin: 07/31/18 06:41 Dose: 2 ml Loperamide HCl (Imodium) 2 mg PO Q4H PRN PRN Reason: Diarrhea Last Admin: 07/31/18 10:17 Dose: 2 mg Lorazepam (Ativan) 0 mg PO ASDIRECTED [facility]; Protocol Last Admin: 07/29/18 15:46 Dose: 1 mg Lorazepam (Ativan) 0 mg IV ASDIRECTED [facility]; Protocol Last Admin: 07/28/18 08:13 Dose: 2 mg Lorazepam (Ativan) 2 mg IVPUSH ASDIRECTED PRN PRN Reason: Seizures Last Admin: 07/28/18 09:00 Dose: 2 mg Lorazepam (Ativan) 1 mg PO ONETIME ONE Stop: 08/03/18 22:34 Last Admin: 08/03/18 22:51 Dose: 1 mg Pantoprazole Sodium (Protonix Iv) 40 mg IV DAILY [facility] Last Admin: 07/24/18 19:52 Dose: 40 mg Pantoprazole Sodium (Protonix Iv) 40 mg IV Q24H [facility] Last Admin: 07/26/18 16:11 Dose: 40 mg Potassium Chloride (Klor-Con M20) 40 meq PO ONETIME ONE Stop: 07/31/18 06:01 Last Admin: 07/31/18 06:31 Dose: 40 meq Potassium Chloride (Klor-Con M20) 40 meq PO ONETIME ONE Stop: 07/31/18 12:01 Last Admin: 07/31/18 11:58 Dose: 40 meq Potassium Chloride (Klor-Con M20) 40 meq PO ONETIME ONE Stop: 08/01/18 09:01 Last Admin: 08/01/18 08:22 Dose: 40 meq Potassium Chloride (Klor-Con M20) 40 meq PO ONETIME ONE Stop: 08/01/18 12:01 Last Admin: 08/01/18 11:18 Dose: 40 meq Potassium Chloride (Klor-Con M20) 40 meq PO ONETIME ONE Stop: 08/01/18 17:01 Last Admin: 08/01/18 17:03 Dose: 40 meq Potassium Chloride (Klor-Con M20) 40 meq PO ONETIME ONE Stop: 08/03/18 09:01 Last Admin: 08/03/18 09:57 Dose: 40 meq Potassium Chloride (Klor-Con M20) 40 meq PO ONETIME ONE Stop: 08/03/18 17:01 Last Admin: 08/03/18 16:22 Dose: 40 meq Potassium Chloride (Klor-Con M20) 40 meq PO ONETIME ONE Stop: 08/05/18 11:31 Last Admin: 08/05/18 11:24 Dose: 40 meq Potassium Chloride (Klor-Con M20) 40 meq PO ONETIME ONE Stop: 08/05/18 17:01 Last Admin: 08/05/18 16:49 Dose: 40 meq Vancomycin HCl (Vancocin 250 Mg/5 Ml Soln) 250 mg PO Q6HR [facility] Last Admin: 08/06/18 10:58 Dose: 250 mg - Exam Quality Assessment: No: Supplemental Oxygen General: Alert, Oriented, Cooperative, No Acute Distress HEENT: Scleral Icterus Lungs: Normal Respiratory Effort GI/Abdominal Exam: Soft, No Distention Extremities: No Pedal Edema Skin: Warm, Dry Psy/Mental Status: Alert, Normal Affect - Problem List & Annotations (1) Alcoholic hepatitis without ascites SNOMED Code(s): 133145426 Code(s): K70.10 - ALCOHOLIC HEPATITIS WITHOUT ASCITES Status: Resolved Current Visit: No (2) Alcohol abuse SNOMED Code(s): 14374966 Code(s): F10.10 - ALCOHOL ABUSE, UNCOMPLICATED Status: Acute Current Visit: Yes (3) Hypokalemia SNOMED Code(s): 20593648 Code(s): E87.6 - HYPOKALEMIA Status: Resolved Current Visit: No (4) Tobacco dependence SNOMED Code(s): 66334471 Code(s): F17.200 - NICOTINE DEPENDENCE, UNSPECIFIED, UNCOMPLICATED Status: Chronic Current Visit: Yes - Problem List Review Problem List Initiated/Reviewed/Updated: Yes - My Orders Last 24 Hours: My Active Orders 08/06/18 16:00 Vancomycin [Vancocin 250 MG/5 ML Soln] 125 mg PO Q6HR 08/07/18 05:00 CBC W/O DIFF,HEMOGRAM [HEME] Timed (1) COMPREHENSIVE METABOLIC PN,CMP [CHEM] Timed - Plan Plan:: ASSESSMENT AND PLAN - Alcoholic hepatitis/cirrhosis - bilirubin remains elevated but is slightly better today. No complaints of abdominal pain or nausea. -Saline lock IV -Repeat liver labs in the morning -Symptomatic management for pain or nausea Acute acalculous cholecystitis, suspected - ultrasound showed distended gallbladder with sludge and mild wall thickening. Patient is asymptomatic. HIDA did not help evaluate gallbladder function because of diffuse hepatocellular disease. -Continue Unasyn 1.5 g IV every 6 hours -Transition to oral antibiotics tomorrow or the next day -Consider outpatient surgical follow-up unless symptoms develop Clostridium difficile colitis - diarrhea slowly improving. Tolerating oral vancomycin. -Continue vancomycin for total of 2 weeks Alcohol abuse - alcohol withdrawal has resolved. Petition for commitment completed and next hearing is August 14. -Melatonin at bedtime -Currently on a court hold pending commitment Severe anxiety -Citalopram 20 mg by mouth daily -Depakote 250 mg by mouth twice a day Hypokalemia - potassium level is in the low side of normal today. -Recheck again in the morning Tobacco dependence - no interest in quitting at this time. -Nicotine patch Maintenance issues - - DVT prophylaxis - mechanical - GI prophylaxis - PPI - Nutrition - regular diet Disposition - I would anticipate discharge to inpatient alcohol treatment after the hospital stay Kiran Sharma M.D.
[2018-08-06] MEDS: Melatonin 3 MG Tab PO SCH (21:38)
[2018-08-07] MEDS: Vancomycin 250 MG/5 ML ML Oral Solution PO SCH ×4 (04:32→22:08)
[2018-08-07] MEDS: Ampicillin/Sulbactam Na 1.5 GM in Sodium Chloride 0.9% 50 ML IV SCH (04:32)
[2018-08-07] MEDS: Pantoprazole 40 MG Tab.CR PO SCH (07:23)
[2018-08-07] MEDS: Divalproex Sodium Delayed-Release 250 MG Tab.CR PO SCH ×2 (08:55→16:52)
--- NOTE | 2018-08-07 09:02 | PCM.PN ---
- General Info Date of Service: 08/07/18 Subjective Update: There were no acute events overnight. Patient does not report any abdominal pain or nausea. He does feel a little unsteady when walking to the bathroom. He has not had any fevers. Still has diarrhea but it seems to be a little bit less. Bilirubin level is stable. Patient has been relatively calm and cooperative. Functional Status: Reports: Pain Controlled, Tolerating Diet, Ambulating - Review of Systems General: Reports: Weakness Gastrointestinal: Reports: Diarrhea. Denies: Abdominal Pain - Patient Data Vitals - Most Recent: Last Vital Signs Temp 36.0 C 08/07/18 08:00 Pulse 97 08/07/18 08:00 Resp 20 08/07/18 08:00 BP 123/81 08/07/18 08:00 Pulse Ox 97 08/07/18 08:00 Orthostatic Blood Pressure [ 107/48 Standing] Orthostatic Blood Pressure [ 107/73 Sitting] Orthostatic Blood Pressure [ 121/83 Supine] Weight - Most Recent: 77.111 kg I&O - Last 24 Hours: Intake & Output 08/06/18 08/07/18 08/07/18 22:59 06:59 14:59 Intake Total 250 650 Balance 250 650 Lab Results Last 24 Hours: Laboratory Results - last 24 hr 08/07/18 08/07/18 Range/Units 04:30 04:30 WBC 9.9 (4.5-11.0) K/uL RBC 2.99 L (4.30-5.90) M/uL Hgb 9.4 L (12.0-15.0) g/dL Hct 28.3 L (40.0-54.0) % MCV 95 (80-98) fL MCH 31 (27-31) pg MCHC 33 (32-36) % Plt Count 193 (150-400) K/uL Sodium 138 L (140-148) mmol/L Potassium 3.4 L (3.6-5.2) mmol/L Chloride 101 (100-108) mmol/L Carbon Dioxide 28 (21-32) mmol/L Anion Gap 12.4 (5.0-14.0) mmol/L BUN 5 L (7-18) mg/dL Creatinine 0.5 L (0.8-1.3) mg/dL Est Cr Clr Drug Dosing 224.91 mL/min Estimated GFR (MDRD) > 60 (>60) Glucose 91 (74-106) mg/dL Calcium 8.4 L (8.5-10.1) mg/dL Total Bilirubin 20.8 H (0.2-1.0) mg/dL AST 193 H (15-37) U/L ALT 182 H (12-78) U/L Alkaline Phosphatase 363 H (46-116) U/L Total Protein 5.1 L (6.4-8.2) g/dL Albumin 1.8 L (3.4-5.0) g/dL Globulin 3.3 (2.3-3.5) g/dL Albumin/Globulin Ratio 0.6 L (1.2-2.2) Med Orders - Current: Current Medications Amoxicillin/Clavulanate Potassium (Augmentin 875 Mg/125 Mg) 1 tab PO Q12HR [facility] Citalopram Hydrobromide (Celexa) 20 mg PO DAILY [facility] Last Admin: 08/06/18 10:54 Dose: 20 mg Divalproex Sodium (Divalproex Sodium) 250 mg PO BIDMEALS [facility] Last Admin: 08/06/18 17:24 Dose: 250 mg Duloxetine HCl (Cymbalta) 30 mg PO BID [facility] Last Admin: 08/06/18 21:38 Dose: 30 mg Folic Acid (Folic Acid) 1 mg PO DAILY [facility] Last Admin: 08/06/18 10:53 Dose: 1 mg Ketorolac Tromethamine (Toradol) 30 mg IVPUSH Q6H PRN PRN Reason: Pain Stop: 08/08/18 08:36 Last Admin: 08/03/18 19:52 Dose: 30 mg Lactobacillus Rhamnosus (Culturelle) 1 cap PO BID [facility] Last Admin: 08/06/18 21:38 Dose: 1 cap Magnesium Hydroxide (Milk Of Magnesia) 30 ml PO Q12H PRN PRN Reason: Constipation Melatonin (Melatonin) 9 mg PO BEDTIME [facility] Last Admin: 08/06/18 21:38 Dose: 9 mg Nicotine (Habitrol) 14 mg TRDERM DAILY [facility] Last Admin: 08/06/18 11:10 Dose: Not Given Ondansetron HCl (Zofran Odt) 4 mg PO Q6H PRN PRN Reason: Nausea able to take PO Last Admin: 08/02/18 15:15 Dose: 4 mg Ondansetron HCl (Zofran) 4 mg IV Q6H PRN PRN Reason: Nausea/Vomiting Pantoprazole Sodium (Protonix) 40 mg PO ACBREAKFAST [facility] Last Admin: 08/07/18 07:23 Dose: 40 mg Potassium Chloride (Klor-Con M20) 40 meq PO BID [facility] Stop: 08/07/18 21:01 Senna/Docusate Sodium (Senna Plus) 1 tab PO BID PRN PRN Reason: Constipation Thiamine HCl (Vitamin B-1) 100 mg PO DAILY [facility] Last Admin: 08/06/18 10:54 Dose: 100 mg Vancomycin HCl (Vancocin 250 Mg/5 Ml Soln) 125 mg PO Q6HR [facility] Stop: 08/18/18 22:30 Last Admin: 08/07/18 04:32 Dose: 125 mg Discontinued Medications Diphenoxylate HCl/Atropine (Lomotil 0.025-2.5 Mg) 1 tab PO Q4H PRN PRN Reason: Diarrhea Last Admin: 08/05/18 20:46 Dose: 1 tab Duloxetine HCl (Cymbalta) 30 mg PO DAILY [facility] Last Admin: 08/02/18 07:59 Dose: 30 mg Gabapentin (Neurontin) 400 mg PO TID [facility] Last Admin: 07/29/18 10:03 Dose: Not Given Gabapentin (Neurontin) 200 mg PO TID [facility] Last Admin: 08/01/18 13:21 Dose: 200 mg Haloperidol Lactate (Haldol) 2 mg IVPUSH Q4H PRN PRN Reason: Agitation Last Admin: 07/28/18 01:45 Dose: 2 mg Haloperidol Lactate (Haldol) 5 mg IM ONETIME [facility] Stop: 07/30/18 06:02 Last Admin: 07/30/18 06:16 Dose: 5 mg Hydromorphone HCl (Dilaudid) 0.5 mg IVPUSH Q2H PRN PRN Reason: Headache Last Admin: 08/03/18 01:19 Dose: 0.5 mg Multivitamins/Minerals 10 ml/Thiamine HCl 100 mg/ Folic Acid 1 mg/ Magnesium Sulfate 3 gm/ Sodium Chloride 1,017.2 mls @ 1,000 mls/hr IV ASDIRECTED [facility] Multivitamins/Minerals 10 ml/Thiamine HCl 100 mg/ Folic Acid 1 mg/ Magnesium Sulfate 3 gm/ Sodium Chloride 1,017.2 mls @ 500 mls/hr IV ASDIRECTED ONE Stop: 07/24/18 19:02 Last Admin: 07/24/18 17:03 Dose: 500 mls/hr Dextrose/Sodium Chloride (Dextrose 5%-Normal Saline) 1,000 mls @ 125 mls/hr IV ASDIRECTED [facility] Last Admin: 07/26/18 10:23 Dose: 125 mls/hr Potassium Chloride 20 meq/Lidocaine HCl 2 ml/ Sodium Chloride 112 mls @ 50 mls/ hr IV Q2H [facility] Stop: 07/24/18 22:03 Last Admin: 07/24/18 22:00 Dose: 50 mls/hr Potassium Chloride (Kcl 20 Meq In Water 100 Ml) Confirm Administered Dose 200 mls @ as directed .ROUTE .[facility] Stop: 07/24/18 19:43 Last Admin: 07/24/18 19:49 Dose: Not Given Potassium Chloride 20 meq/ (Premix) 0 mls @ 50 mls/hr IV ONETIME ONE Stop: 07/25/18 06:00 Last Admin: 07/25/18 10:06 Dose: Not Given Potassium Chloride (Kcl 20 Meq In Water 100 Ml) 100 mls @ 50 mls/hr IV Q2H [facility] Stop: 07/25/18 10:59 Last Admin: 07/25/18 09:02 Dose: 50 mls/hr Potassium Chloride 20 meq/Lidocaine HCl 2 ml/ Sodium Chloride 112 mls @ 50 mls/ hr IV Q2H [facility] Stop: 07/25/18 18:29 Last Admin: 07/25/18 17:11 Dose: 50 mls/hr Potassium Chloride 20 meq/Lidocaine HCl 2 ml/ Sodium Chloride 112 mls @ 56 mls/ hr IV Q2H [facility] Stop: 07/26/18 13:29 Last Admin: 07/26/18 12:31 Dose: 56 mls/hr Potassium Chloride/Dextrose/Sod Cl (D5 1/2 Ns W/ 20 Meq/L Kcl) 1,000 mls @ 75 mls/hr IV ASDIRECTED [facility] Last Admin: 07/27/18 03:56 Dose: 75 mls/hr Potassium Chloride/Dextrose/Sod Cl (D5 1/2 Ns W/ 20 Meq/L Kcl) 1,000 mls @ 50 mls/hr IV ASDIRECTED [facility] Last Admin: 07/29/18 18:36 Dose: 50 mls/hr Potassium Chloride 20 meq/Lidocaine HCl 2 ml/ Sodium Chloride 112 mls @ 50 mls/ hr IV Q2H [facility] Stop: 07/28/18 13:59 Last Admin: 07/28/18 12:23 Dose: 50 mls/hr Sodium Chloride (Normal Saline) 500 mls @ 500 mls/hr IV .[facility] ONE Stop: 07/28/18 19:36 Last Admin: 07/28/18 18:40 Dose: 500 mls/hr Potassium Chloride 20 meq/ (Premix) 100 mls @ 50 mls/hr IV Q2H [facility] Stop: 07/31/18 08:00 Last Admin: 07/31/18 06:35 Dose: 50 mls/hr Potassium Chloride 20 meq/Lidocaine HCl 2 ml/ Sodium Chloride 112 mls @ 56 mls/ hr IV ONETIME ONE Stop: 07/31/18 10:29 Last Admin: 07/31/18 08:27 Dose: 56 mls/hr Sodium Chloride (Normal Saline) 1,000 mls @ 125 mls/hr IV ASDIRECTED [facility] Last Admin: 08/01/18 03:23 Dose: 125 mls/hr Ampicillin Sodium/Sulbactam (Sodium 1.5 gm/ Sodium Chloride) 50 mls @ 100 mls/ hr IV Q6H [facility] Last Admin: 08/07/18 04:32 Dose: 100 mls/hr Ibuprofen (Motrin) 600 mg PO Q6H PRN PRN Reason: Pain/Fever Last Admin: 08/03/18 03:03 Dose: 600 mg Lidocaine HCl (Xylocaine-Mpf 1%) 2 ml INJECT ONETIME ONE Stop: 07/25/18 06:02 Last Admin: 07/25/18 06:32 Dose: 2 ml Lidocaine HCl (Xylocaine-Mpf 1%) 2 ml INJECT ONETIME ONE Stop: 07/31/18 05:56 Last Admin: 07/31/18 06:41 Dose: 2 ml Loperamide HCl (Imodium) 2 mg PO Q4H PRN PRN Reason: Diarrhea Last Admin: 07/31/18 10:17 Dose: 2 mg Lorazepam (Ativan) 0 mg PO ASDIRECTED [facility]; Protocol Last Admin: 07/29/18 15:46 Dose: 1 mg Lorazepam (Ativan) 0 mg IV ASDIRECTED [facility]; Protocol Last Admin: 07/28/18 08:13 Dose: 2 mg Lorazepam (Ativan) 2 mg IVPUSH ASDIRECTED PRN PRN Reason: Seizures Last Admin: 07/28/18 09:00 Dose: 2 mg Lorazepam (Ativan) 1 mg PO ONETIME ONE Stop: 08/03/18 22:34 Last Admin: 08/03/18 22:51 Dose: 1 mg Pantoprazole Sodium (Protonix Iv) 40 mg IV DAILY [facility] Last Admin: 07/24/18 19:52 Dose: 40 mg Pantoprazole Sodium (Protonix Iv) 40 mg IV Q24H [facility] Last Admin: 07/26/18 16:11 Dose: 40 mg Potassium Chloride (Klor-Con M20) 40 meq PO ONETIME ONE Stop: 07/31/18 06:01 Last Admin: 07/31/18 06:31 Dose: 40 meq Potassium Chloride (Klor-Con M20) 40 meq PO ONETIME ONE Stop: 07/31/18 12:01 Last Admin: 07/31/18 11:58 Dose: 40 meq Potassium Chloride (Klor-Con M20) 40 meq PO ONETIME ONE Stop: 08/01/18 09:01 Last Admin: 08/01/18 08:22 Dose: 40 meq Potassium Chloride (Klor-Con M20) 40 meq PO ONETIME ONE Stop: 08/01/18 12:01 Last Admin: 08/01/18 11:18 Dose: 40 meq Potassium Chloride (Klor-Con M20) 40 meq PO ONETIME ONE Stop: 08/01/18 17:01 Last Admin: 08/01/18 17:03 Dose: 40 meq Potassium Chloride (Klor-Con M20) 40 meq PO ONETIME ONE Stop: 08/03/18 09:01 Last Admin: 08/03/18 09:57 Dose: 40 meq Potassium Chloride (Klor-Con M20) 40 meq PO ONETIME ONE Stop: 08/03/18 17:01 Last Admin: 08/03/18 16:22 Dose: 40 meq Potassium Chloride (Klor-Con M20) 40 meq PO ONETIME ONE Stop: 08/05/18 11:31 Last Admin: 08/05/18 11:24 Dose: 40 meq Potassium Chloride (Klor-Con M20) 40 meq PO ONETIME ONE Stop: 08/05/18 17:01 Last Admin: 08/05/18 16:49 Dose: 40 meq Vancomycin HCl (Vancocin 250 Mg/5 Ml Soln) 250 mg PO Q6HR [facility] Last Admin: 08/06/18 10:58 Dose: 250 mg - Exam Quality Assessment: No: Supplemental Oxygen General: Alert, Oriented, Cooperative, No Acute Distress Lungs: Normal Respiratory Effort GI/Abdominal Exam: Soft, No Distention Extremities: No Pedal Edema Skin: Warm, Dry Psy/Mental Status: Alert, Normal Affect - Problem List & Annotations (1) Alcoholic hepatitis without ascites SNOMED Code(s): 925021210 Code(s): K70.10 - ALCOHOLIC HEPATITIS WITHOUT ASCITES Status: Resolved Current Visit: No (2) Alcohol abuse SNOMED Code(s): 97706093 Code(s): F10.10 - ALCOHOL ABUSE, UNCOMPLICATED Status: Acute Current Visit: Yes (3) Hypokalemia SNOMED Code(s): 70050752 Code(s): E87.6 - HYPOKALEMIA Status: Resolved Current Visit: No (4) Tobacco dependence SNOMED Code(s): 08034380 Code(s): F17.200 - NICOTINE DEPENDENCE, UNSPECIFIED, UNCOMPLICATED Status: Chronic Current Visit: Yes - Problem List Review Problem List Initiated/Reviewed/Updated: Yes - My Orders Last 24 Hours: My Active Orders 08/06/18 16:00 Vancomycin [Vancocin 250 MG/5 ML Soln] 125 mg PO Q6HR 08/07/18 09:00 Amoxicillin/Clavulanate K [Augmentin 875 MG/125 MG] 1 tab PO Q12HR 08/07/18 09:15 Potassium Chloride [Klor-Con M20] 40 meq PO BID 08/08/18 05:00 COMPREHENSIVE METABOLIC PN,CMP [CHEM] Timed - Plan Plan:: ASSESSMENT AND PLAN - Alcoholic hepatitis/cirrhosis - bilirubin remains elevated but and is stable. No complaints of abdominal pain or nausea. -Saline lock IV -Repeat liver labs in the morning -Symptomatic management for pain or nausea Acute acalculous cholecystitis, suspected - ultrasound showed distended gallbladder with sludge and mild wall thickening. Patient is asymptomatic. HIDA did not help evaluate gallbladder function because of diffuse hepatocellular disease. -Change antibiotics to oral Augmentin -Consider outpatient surgical follow-up unless symptoms develop Clostridium difficile colitis - diarrhea slowly improving. Tolerating oral vancomycin so far. -Continue vancomycin for total of 2 weeks Alcohol abuse - alcohol withdrawal has resolved. Petition for commitment completed and next hearing is August 14. -Melatonin at bedtime -Currently on a court hold pending commitment Severe anxiety -Citalopram 20 mg by mouth daily -Depakote 250 mg by mouth twice a day Hypokalemia - potassium level slightly low again today. -40 mEq 2 today -Recheck again in the morning Tobacco dependence - no interest in quitting at this time. -Nicotine patch Maintenance issues - - DVT prophylaxis - mechanical - GI prophylaxis - PPI - Nutrition - regular diet Disposition - I would anticipate discharge to inpatient alcohol treatment after the hospital stay Kiran Sharma M.D.
[2018-08-07] MEDS: Thiamine 100 MG Tab PO SCH (09:29)
[2018-08-07] MEDS: DULoxetine 30 MG Cap PO SCH ×2 (09:29→20:54)
[2018-08-07] MEDS: Nicotine 14 MG/24 Hr Patch TRDERM SCH (09:30)
[2018-08-07] MEDS: Citalopram 20 MG Tab PO SCH (09:30)
[2018-08-07] MEDS: Folic Acid 1 MG Tab PO SCH (09:30)
[2018-08-07] MEDS: Lactobacillus Rhamnosus GG (Probiotic) Cap PO SCH ×2 (09:30→20:55)
[2018-08-07] MEDS: Potassium Chloride 20 MEQ Tab.ER PO SCH ×2 (09:45→20:55)
[2018-08-07] MEDS: Amoxicillin/Clavulanate K 875-125 MG Tab PO SCH ×2 (09:45→20:55)
[2018-08-07] MEDS: Melatonin 3 MG Tab PO SCH (20:55)
[2018-08-08] MEDS: Vancomycin 250 MG/5 ML ML Oral Solution PO SCH ×4 (04:12→21:10)
[2018-08-08] MEDS: Pantoprazole 40 MG Tab.CR PO SCH (07:51)
[2018-08-08] MEDS: Divalproex Sodium Delayed-Release 250 MG Tab.CR PO SCH ×2 (07:52→16:36)
[2018-08-08] MEDS: Thiamine 100 MG Tab PO SCH ×2 (07:53→10:04)
[2018-08-08] MEDS: Citalopram 20 MG Tab PO SCH ×2 (07:53→10:04)
[2018-08-08] MEDS: Lactobacillus Rhamnosus GG (Probiotic) Cap PO SCH ×3 (07:53→21:10)
[2018-08-08] MEDS: DULoxetine 30 MG Cap PO SCH ×3 (07:53→21:09)
[2018-08-08] MEDS: Folic Acid 1 MG Tab PO SCH ×2 (07:54→10:04)
[2018-08-08] MEDS: Amoxicillin/Clavulanate K 875-125 MG Tab PO SCH ×3 (07:54→21:10)
[2018-08-08] MEDS ORDERED: Potassium Chloride 20 MEQ Tab.ER PO ONE (09:00)
--- NOTE | 2018-08-08 09:07 | PCM.PN ---
- General Info Date of Service: 08/08/18 Subjective Update: There were no acute events overnight. The patient has not been sleeping well. He continues to have diarrhea. He has not had any fevers. He does not have any abdominal pain or nausea. His discriminant function is elevated today at 33 suggesting that steroids may be beneficial to prolong survival and these will be initiated. He has smoked 3 cigarettes early this morning which is his daily allowance and he is requesting more. Functional Status: Reports: Pain Controlled, Tolerating Diet - Review of Systems Gastrointestinal: Reports: Diarrhea. Denies: Abdominal Pain, Nausea - Patient Data Vitals - Most Recent: Last Vital Signs Temp 35.8 C 08/08/18 07:50 Pulse 100 08/08/18 07:50 Resp 16 08/08/18 07:50 BP 127/82 08/08/18 07:50 Pulse Ox 97 08/08/18 07:50 Orthostatic Blood Pressure [ 107/48 Standing] Orthostatic Blood Pressure [ 107/73 Sitting] Orthostatic Blood Pressure [ 121/83 Supine] Weight - Most Recent: 76.938 kg I&O - Last 24 Hours: Intake & Output 08/07/18 08/08/18 08/08/18 22:59 06:59 14:59 Intake Total 485 Balance 485 Lab Results Last 24 Hours: Laboratory Results - last 24 hr 08/08/18 Range/Units 05:30 Sodium 138 L (140-148) mmol/L Potassium 3.4 L (3.6-5.2) mmol/L Chloride 101 (100-108) mmol/L Carbon Dioxide 30 (21-32) mmol/L Anion Gap 10.4 (5.0-14.0) mmol/L BUN 5 L (7-18) mg/dL Creatinine 0.5 L (0.8-1.3) mg/dL Est Cr Clr Drug Dosing 224.40 mL/min Estimated GFR (MDRD) > 60 (>60) Glucose 92 (74-106) mg/dL Calcium 8.6 (8.5-10.1) mg/dL Total Bilirubin 21.6 H (0.2-1.0) mg/dL AST 206 H (15-37) U/L ALT 208 H (12-78) U/L Alkaline Phosphatase 382 H (46-116) U/L Total Protein 5.1 L (6.4-8.2) g/dL Albumin 1.8 L (3.4-5.0) g/dL Globulin 3.3 (2.3-3.5) g/dL Albumin/Globulin Ratio 0.6 L (1.2-2.2) Med Orders - Current: Current Medications Amoxicillin/Clavulanate Potassium (Augmentin 875 Mg/125 Mg) 1 tab PO Q12H [facility] Last Admin: 08/08/18 07:54 Dose: 1 tab Citalopram Hydrobromide (Celexa) 20 mg PO DAILY [facility] Last Admin: 08/08/18 07:53 Dose: 20 mg Divalproex Sodium (Divalproex Sodium) 250 mg PO BIDMEALS [facility] Last Admin: 08/08/18 07:52 Dose: 250 mg Duloxetine HCl (Cymbalta) 30 mg PO BID [facility] Last Admin: 08/08/18 07:53 Dose: 30 mg Folic Acid (Folic Acid) 1 mg PO DAILY [facility] Last Admin: 08/08/18 07:54 Dose: 1 mg Lactobacillus Rhamnosus (Culturelle) 1 cap PO BID [facility] Last Admin: 08/08/18 07:53 Dose: 1 cap Magnesium Hydroxide (Milk Of Magnesia) 30 ml PO Q12H PRN PRN Reason: Constipation Melatonin (Melatonin) 9 mg PO BEDTIME [facility] Last Admin: 08/07/18 20:55 Dose: 9 mg Nicotine (Habitrol) 14 mg TRDERM DAILY [facility] Last Admin: 08/07/18 09:30 Dose: Not Given Ondansetron HCl (Zofran Odt) 4 mg PO Q6H PRN PRN Reason: Nausea able to take PO Last Admin: 08/02/18 15:15 Dose: 4 mg Ondansetron HCl (Zofran) 4 mg IV Q6H PRN PRN Reason: Nausea/Vomiting Pantoprazole Sodium (Protonix) 40 mg PO ACBREAKFAST [facility] Last Admin: 08/08/18 07:51 Dose: 40 mg Senna/Docusate Sodium (Senna Plus) 1 tab PO BID PRN PRN Reason: Constipation Thiamine HCl (Vitamin B-1) 100 mg PO DAILY [facility] Last Admin: 08/08/18 07:53 Dose: 100 mg Vancomycin HCl (Vancocin 250 Mg/5 Ml Soln) 125 mg PO Q6HR [facility] Stop: 08/18/18 22:30 Last Admin: 08/08/18 04:12 Dose: 125 mg Discontinued Medications Diphenoxylate HCl/Atropine (Lomotil 0.025-2.5 Mg) 1 tab PO Q4H PRN PRN Reason: Diarrhea Last Admin: 08/05/18 20:46 Dose: 1 tab Duloxetine HCl (Cymbalta) 30 mg PO DAILY [facility] Last Admin: 08/02/18 07:59 Dose: 30 mg Gabapentin (Neurontin) 400 mg PO TID [facility] Last Admin: 07/29/18 10:03 Dose: Not Given Gabapentin (Neurontin) 200 mg PO TID [facility] Last Admin: 08/01/18 13:21 Dose: 200 mg Haloperidol Lactate (Haldol) 2 mg IVPUSH Q4H PRN PRN Reason: Agitation Last Admin: 07/28/18 01:45 Dose: 2 mg Haloperidol Lactate (Haldol) 5 mg IM ONETIME [facility] Stop: 07/30/18 06:02 Last Admin: 07/30/18 06:16 Dose: 5 mg Hydromorphone HCl (Dilaudid) 0.5 mg IVPUSH Q2H PRN PRN Reason: Headache Last Admin: 08/03/18 01:19 Dose: 0.5 mg Multivitamins/Minerals 10 ml/Thiamine HCl 100 mg/ Folic Acid 1 mg/ Magnesium Sulfate 3 gm/ Sodium Chloride 1,017.2 mls @ 1,000 mls/hr IV ASDIRECTED [facility] Multivitamins/Minerals 10 ml/Thiamine HCl 100 mg/ Folic Acid 1 mg/ Magnesium Sulfate 3 gm/ Sodium Chloride 1,017.2 mls @ 500 mls/hr IV ASDIRECTED ONE Stop: 07/24/18 19:02 Last Admin: 07/24/18 17:03 Dose: 500 mls/hr Dextrose/Sodium Chloride (Dextrose 5%-Normal Saline) 1,000 mls @ 125 mls/hr IV ASDIRECTED [facility] Last Admin: 07/26/18 10:23 Dose: 125 mls/hr Potassium Chloride 20 meq/Lidocaine HCl 2 ml/ Sodium Chloride 112 mls @ 50 mls/ hr IV Q2H [facility] Stop: 07/24/18 22:03 Last Admin: 07/24/18 22:00 Dose: 50 mls/hr Potassium Chloride (Kcl 20 Meq In Water 100 Ml) Confirm Administered Dose 200 mls @ as directed .ROUTE .STK-MED ONE Stop: 07/24/18 19:43 Last Admin: 07/24/18 19:49 Dose: Not Given Potassium Chloride 20 meq/ (Premix) 0 mls @ 50 mls/hr IV ONETIME ONE Stop: 07/25/18 06:00 Last Admin: 07/25/18 10:06 Dose: Not Given Potassium Chloride (Kcl 20 Meq In Water 100 Ml) 100 mls @ 50 mls/hr IV Q2H [facility] Stop: 07/25/18 10:59 Last Admin: 07/25/18 09:02 Dose: 50 mls/hr Potassium Chloride 20 meq/Lidocaine HCl 2 ml/ Sodium Chloride 112 mls @ 50 mls/ hr IV Q2H [facility] Stop: 07/25/18 18:29 Last Admin: 07/25/18 17:11 Dose: 50 mls/hr Potassium Chloride 20 meq/Lidocaine HCl 2 ml/ Sodium Chloride 112 mls @ 56 mls/ hr IV Q2H [facility] Stop: 07/26/18 13:29 Last Admin: 07/26/18 12:31 Dose: 56 mls/hr Potassium Chloride/Dextrose/Sod Cl (D5 1/2 Ns W/ 20 Meq/L Kcl) 1,000 mls @ 75 mls/hr IV ASDIRECTED [facility] Last Admin: 07/27/18 03:56 Dose: 75 mls/hr Potassium Chloride/Dextrose/Sod Cl (D5 1/2 Ns W/ 20 Meq/L Kcl) 1,000 mls @ 50 mls/hr IV ASDIRECTED [facility] Last Admin: 07/29/18 18:36 Dose: 50 mls/hr Potassium Chloride 20 meq/Lidocaine HCl 2 ml/ Sodium Chloride 112 mls @ 50 mls/ hr IV Q2H [facility] Stop: 07/28/18 13:59 Last Admin: 07/28/18 12:23 Dose: 50 mls/hr Sodium Chloride (Normal Saline) 500 mls @ 500 mls/hr IV .BOLUS ONE Stop: 07/28/18 19:36 Last Admin: 07/28/18 18:40 Dose: 500 mls/hr Potassium Chloride 20 meq/ (Premix) 100 mls @ 50 mls/hr IV Q2H [facility] Stop: 07/31/18 08:00 Last Admin: 07/31/18 06:35 Dose: 50 mls/hr Potassium Chloride 20 meq/Lidocaine HCl 2 ml/ Sodium Chloride 112 mls @ 56 mls/ hr IV ONETIME ONE Stop: 07/31/18 10:29 Last Admin: 07/31/18 08:27 Dose: 56 mls/hr Sodium Chloride (Normal Saline) 1,000 mls @ 125 mls/hr IV ASDIRECTED [facility] Last Admin: 08/01/18 03:23 Dose: 125 mls/hr Ampicillin Sodium/Sulbactam (Sodium 1.5 gm/ Sodium Chloride) 50 mls @ 100 mls/ hr IV Q6H [facility] Last Admin: 08/07/18 04:32 Dose: 100 mls/hr Ibuprofen (Motrin) 600 mg PO Q6H PRN PRN Reason: Pain/Fever Last Admin: 08/03/18 03:03 Dose: 600 mg Ketorolac Tromethamine (Toradol) 30 mg IVPUSH Q6H PRN PRN Reason: Pain Stop: 08/08/18 08:36 Last Admin: 08/03/18 19:52 Dose: 30 mg Lidocaine HCl (Xylocaine-Mpf 1%) 2 ml INJECT ONETIME ONE Stop: 07/25/18 06:02 Last Admin: 07/25/18 06:32 Dose: 2 ml Lidocaine HCl (Xylocaine-Mpf 1%) 2 ml INJECT ONETIME ONE Stop: 07/31/18 05:56 Last Admin: 07/31/18 06:41 Dose: 2 ml Loperamide HCl (Imodium) 2 mg PO Q4H PRN PRN Reason: Diarrhea Last Admin: 07/31/18 10:17 Dose: 2 mg Lorazepam (Ativan) 0 mg PO ASDIRECTED [facility]; Protocol Last Admin: 07/29/18 15:46 Dose: 1 mg Lorazepam (Ativan) 0 mg IV ASDIRECTED [facility]; Protocol Last Admin: 07/28/18 08:13 Dose: 2 mg Lorazepam (Ativan) 2 mg IVPUSH ASDIRECTED PRN PRN Reason: Seizures Last Admin: 07/28/18 09:00 Dose: 2 mg Lorazepam (Ativan) 1 mg PO ONETIME ONE Stop: 08/03/18 22:34 Last Admin: 08/03/18 22:51 Dose: 1 mg Pantoprazole Sodium (Protonix Iv) 40 mg IV DAILY [facility] Last Admin: 07/24/18 19:52 Dose: 40 mg Pantoprazole Sodium (Protonix Iv) 40 mg IV Q24H [facility] Last Admin: 07/26/18 16:11 Dose: 40 mg Potassium Chloride (Klor-Con M20) 40 meq PO ONETIME ONE Stop: 07/31/18 06:01 Last Admin: 07/31/18 06:31 Dose: 40 meq Potassium Chloride (Klor-Con M20) 40 meq PO ONETIME ONE Stop: 07/31/18 12:01 Last Admin: 07/31/18 11:58 Dose: 40 meq Potassium Chloride (Klor-Con M20) 40 meq PO ONETIME ONE Stop: 08/01/18 09:01 Last Admin: 08/01/18 08:22 Dose: 40 meq Potassium Chloride (Klor-Con M20) 40 meq PO ONETIME ONE Stop: 08/01/18 12:01 Last Admin: 08/01/18 11:18 Dose: 40 meq Potassium Chloride (Klor-Con M20) 40 meq PO ONETIME ONE Stop: 08/01/18 17:01 Last Admin: 08/01/18 17:03 Dose: 40 meq Potassium Chloride (Klor-Con M20) 40 meq PO ONETIME ONE Stop: 08/03/18 09:01 Last Admin: 08/03/18 09:57 Dose: 40 meq Potassium Chloride (Klor-Con M20) 40 meq PO ONETIME ONE Stop: 08/03/18 17:01 Last Admin: 08/03/18 16:22 Dose: 40 meq Potassium Chloride (Klor-Con M20) 40 meq PO ONETIME ONE Stop: 08/05/18 11:31 Last Admin: 08/05/18 11:24 Dose: 40 meq Potassium Chloride (Klor-Con M20) 40 meq PO ONETIME ONE Stop: 08/05/18 17:01 Last Admin: 08/05/18 16:49 Dose: 40 meq Potassium Chloride (Klor-Con M20) 40 meq PO BID [facility] Stop: 08/07/18 21:01 Last Admin: 08/07/18 20:55 Dose: 40 meq Potassium Chloride (Klor-Con M20) 40 meq PO ONETIME ONE Stop: 08/08/18 09:01 Vancomycin HCl (Vancocin 250 Mg/5 Ml Soln) 250 mg PO Q6HR [facility] Last Admin: 08/06/18 10:58 Dose: 250 mg - Exam Quality Assessment: No: Supplemental Oxygen General: Alert, Cooperative, No Acute Distress HEENT: Scleral Icterus Lungs: Normal Respiratory Effort GI/Abdominal Exam: Soft, No Distention Extremities: No Pedal Edema Skin: Warm, Dry, Ecchymosis (right medial elbow) Psy/Mental Status: Alert, Normal Affect - Problem List & Annotations (1) Alcoholic hepatitis without ascites SNOMED Code(s): 737845929 Code(s): K70.10 - ALCOHOLIC HEPATITIS WITHOUT ASCITES Status: Resolved Current Visit: No (2) Alcohol abuse SNOMED Code(s): 40478926 Code(s): F10.10 - ALCOHOL ABUSE, UNCOMPLICATED Status: Acute Current Visit: Yes (3) Hypokalemia SNOMED Code(s): 62405840 Code(s): E87.6 - HYPOKALEMIA Status: Resolved Current Visit: No (4) Tobacco dependence SNOMED Code(s): 49899551 Code(s): F17.200 - NICOTINE DEPENDENCE, UNSPECIFIED, UNCOMPLICATED Status: Chronic Current Visit: Yes - Problem List Review Problem List Initiated/Reviewed/Updated: Yes - My Orders Last 24 Hours: My Active Orders 08/07/18 09:00 Amoxicillin/Clavulanate K [Augmentin 875 MG/125 MG] 1 tab PO Q12H 08/09/18 05:00 AMMONIA VENOUS [CHEM] Timed COMPREHENSIVE METABOLIC PN,CMP [CHEM] Timed - Plan Plan:: ASSESSMENT AND PLAN - Alcoholic hepatitis/cirrhosis - bilirubin remains elevated and has been slowly climbing. Discriminant function elevated at greater than 33 suggesting steroids may be beneficial to prolong survival. Oh complaints of abdominal pain. -Saline lock IV -Start prednisolone 40 mg daily -Repeat liver labs in the morning -Symptomatic management for pain or nausea Acute acalculous cholecystitis, suspected - ultrasound showed distended gallbladder with sludge and mild wall thickening. Patient is asymptomatic. HIDA did not help evaluate gallbladder function because of diffuse hepatocellular disease. -Continue Augmentin -Consider outpatient surgical follow-up unless symptoms develop Clostridium difficile colitis - diarrhea slowly improving. Tolerating oral vancomycin so far. -Continue vancomycin for total of 2 weeks (treatment through August 18) Alcohol abuse - alcohol withdrawal has resolved. Petition for commitment completed and next hearing is August 14. -Melatonin at bedtime -Currently on a court hold pending commitment Severe anxiety -Citalopram 20 mg by mouth daily -Depakote 250 mg by mouth twice a day Hypokalemia - potassium level slightly low again today. -40 mEq 1 today -Recheck again in the morning Tobacco dependence - no interest in quitting at this time. Current cigarette allowance is 3 per day. -Nicotine patch Maintenance issues - - DVT prophylaxis - mechanical - GI prophylaxis - PPI - Nutrition - regular diet Disposition - I would anticipate discharge to inpatient alcohol treatment after the hospital stay if he survives his severe alcoholic hepatitis Kiran Sharma M.D.
[2018-08-08] MEDS: Nicotine 14 MG/24 Hr Patch TRDERM SCH (09:34)
[2018-08-08] MEDS: prednisoLONE 15 MG/5 ML Soln UD Cup PO SCH (16:35)
[2018-08-08] MEDS: Melatonin 3 MG Tab PO SCH (21:09)
[2018-08-09] MEDS: Vancomycin 250 MG/5 ML ML Oral Solution PO SCH ×4 (03:17→21:35)
[2018-08-09] MEDS: Divalproex Sodium Delayed-Release 250 MG Tab.CR PO SCH (07:40)
[2018-08-09] MEDS: Pantoprazole 40 MG Tab.CR PO SCH (07:40)
[2018-08-09] MEDS: DULoxetine 30 MG Cap PO SCH ×2 (08:14→20:24)
[2018-08-09] MEDS: Amoxicillin/Clavulanate K 875-125 MG Tab PO SCH ×2 (08:14→20:24)
[2018-08-09] MEDS: Lactobacillus Rhamnosus GG (Probiotic) Cap PO SCH ×2 (08:15→20:24)
[2018-08-09] MEDS: Folic Acid 1 MG Tab PO SCH (08:15)
[2018-08-09] MEDS: Citalopram 20 MG Tab PO SCH (08:15)
[2018-08-09] MEDS: prednisoLONE 15 MG/5 ML Soln UD Cup PO SCH (08:16)
[2018-08-09] MEDS: Thiamine 100 MG Tab PO SCH (08:16)
[2018-08-09] MEDS: Nicotine 14 MG/24 Hr Patch TRDERM SCH (08:20)
--- NOTE | 2018-08-09 09:16 | PCM.PN ---
- General Info Date of Service: 08/09/18 Subjective Update: There were no acute events overnight. Patient continues to have diarrhea. He has been hallucinating some overnight. He has not had any fevers. He does not report any abdominal pain or nausea. Bilirubin level has risen to more than 25 today. Today is day 2 of prednisolone. Functional Status: Reports: Pain Controlled, Tolerating Diet - Review of Systems General: Reports: Weakness. Denies: Fever Gastrointestinal: Reports: Diarrhea. Denies: Abdominal Pain, Nausea Neurological: Reports: Confusion Psychiatric: Reports: Hallucinations - Patient Data Vitals - Most Recent: Last Vital Signs Temp 36.1 C 08/09/18 08:00 Pulse 90 08/09/18 03:15 Resp 16 08/09/18 03:15 BP 128/76 08/09/18 03:15 Pulse Ox 96 08/09/18 03:15 Orthostatic Blood Pressure [ 107/48 Standing] Orthostatic Blood Pressure [ 107/73 Sitting] Orthostatic Blood Pressure [ 121/83 Supine] Weight - Most Recent: 76.938 kg I&O - Last 24 Hours: Intake & Output 08/08/18 08/09/18 08/09/18 22:59 06:59 14:59 Intake Total 240 600 Balance 240 600 Lab Results Last 24 Hours: Laboratory Results - last 24 hr 08/09/18 08/09/18 Range/Units 05:50 05:50 Sodium 137 L (140-148) mmol/L Potassium 3.7 (3.6-5.2) mmol/L Chloride 100 (100-108) mmol/L Carbon Dioxide 29 (21-32) mmol/L Anion Gap 11.7 (5.0-14.0) mmol/L BUN 5 L (7-18) mg/dL Creatinine 0.5 L (0.8-1.3) mg/dL Est Cr Clr Drug Dosing 224.40 mL/min Estimated GFR (MDRD) > 60 (>60) Glucose 100 (74-106) mg/dL Calcium 9.1 (8.5-10.1) mg/dL Total Bilirubin 25.4 H (0.2-1.0) mg/dL AST 248 H (15-37) U/L ALT 251 H (12-78) U/L Alkaline Phosphatase 442 H (46-116) U/L Ammonia 29 (11-32) mmol/L Total Protein 5.9 L (6.4-8.2) g/dL Albumin 2.1 L (3.4-5.0) g/dL Globulin 3.8 H (2.3-3.5) g/dL Albumin/Globulin Ratio 0.6 L (1.2-2.2) Med Orders - Current: Current Medications Amoxicillin/Clavulanate Potassium (Augmentin 875 Mg/125 Mg) 1 tab PO Q12H [facility] Last Admin: 08/09/18 08:14 Dose: 1 tab Citalopram Hydrobromide (Celexa) 20 mg PO DAILY [facility] Last Admin: 08/09/18 08:15 Dose: 20 mg Divalproex Sodium (Divalproex Sodium) 250 mg PO BIDMEALS [facility] Last Admin: 08/09/18 07:40 Dose: 250 mg Duloxetine HCl (Cymbalta) 30 mg PO BID [facility] Last Admin: 08/09/18 08:14 Dose: 30 mg Folic Acid (Folic Acid) 1 mg PO DAILY [facility] Last Admin: 08/09/18 08:15 Dose: 1 mg Lactobacillus Rhamnosus (Culturelle) 1 cap PO BID [facility] Last Admin: 08/09/18 08:15 Dose: 1 cap Magnesium Hydroxide (Milk Of Magnesia) 30 ml PO Q12H PRN PRN Reason: Constipation Melatonin (Melatonin) 9 mg PO BEDTIME [facility] Last Admin: 08/08/18 21:09 Dose: 9 mg Nicotine (Habitrol) 14 mg TRDERM DAILY [facility] Last Admin: 08/09/18 08:20 Dose: Not Given Ondansetron HCl (Zofran Odt) 4 mg PO Q6H PRN PRN Reason: Nausea able to take PO Last Admin: 08/02/18 15:15 Dose: 4 mg Ondansetron HCl (Zofran) 4 mg IV Q6H PRN PRN Reason: Nausea/Vomiting Pantoprazole Sodium (Protonix) 40 mg PO ACBREAKFAST [facility] Last Admin: 08/09/18 07:40 Dose: 40 mg Prednisolone (Orapred 15 Mg/5ml Soln) 40 mg PO DAILY [facility] Last Admin: 08/09/18 08:16 Dose: 40 mg Senna/Docusate Sodium (Senna Plus) 1 tab PO BID PRN PRN Reason: Constipation Thiamine HCl (Vitamin B-1) 100 mg PO DAILY [facility] Last Admin: 08/09/18 08:16 Dose: 100 mg Vancomycin HCl (Vancocin 250 Mg/5 Ml Soln) 125 mg PO Q6HR [facility] Stop: 08/18/18 22:30 Last Admin: 08/09/18 03:17 Dose: 125 mg Discontinued Medications Diphenoxylate HCl/Atropine (Lomotil 0.025-2.5 Mg) 1 tab PO Q4H PRN PRN Reason: Diarrhea Last Admin: 08/05/18 20:46 Dose: 1 tab Duloxetine HCl (Cymbalta) 30 mg PO DAILY [facility] Last Admin: 08/02/18 07:59 Dose: 30 mg Gabapentin (Neurontin) 400 mg PO TID [facility] Last Admin: 07/29/18 10:03 Dose: Not Given Gabapentin (Neurontin) 200 mg PO TID [facility] Last Admin: 08/01/18 13:21 Dose: 200 mg Haloperidol Lactate (Haldol) 2 mg IVPUSH Q4H PRN PRN Reason: Agitation Last Admin: 07/28/18 01:45 Dose: 2 mg Haloperidol Lactate (Haldol) 5 mg IM ONETIME [facility] Stop: 07/30/18 06:02 Last Admin: 07/30/18 06:16 Dose: 5 mg Hydromorphone HCl (Dilaudid) 0.5 mg IVPUSH Q2H PRN PRN Reason: Headache Last Admin: 08/03/18 01:19 Dose: 0.5 mg Multivitamins/Minerals 10 ml/Thiamine HCl 100 mg/ Folic Acid 1 mg/ Magnesium Sulfate 3 gm/ Sodium Chloride 1,017.2 mls @ 1,000 mls/hr IV ASDIRECTED [facility] Multivitamins/Minerals 10 ml/Thiamine HCl 100 mg/ Folic Acid 1 mg/ Magnesium Sulfate 3 gm/ Sodium Chloride 1,017.2 mls @ 500 mls/hr IV ASDIRECTED ONE Stop: 07/24/18 19:02 Last Admin: 07/24/18 17:03 Dose: 500 mls/hr Dextrose/Sodium Chloride (Dextrose 5%-Normal Saline) 1,000 mls @ 125 mls/hr IV ASDIRECTED [facility] Last Admin: 07/26/18 10:23 Dose: 125 mls/hr Potassium Chloride 20 meq/Lidocaine HCl 2 ml/ Sodium Chloride 112 mls @ 50 mls/ hr IV Q2H [facility] Stop: 07/24/18 22:03 Last Admin: 07/24/18 22:00 Dose: 50 mls/hr Potassium Chloride (Kcl 20 Meq In Water 100 Ml) Confirm Administered Dose 200 mls @ as directed .ROUTE .STK-MED ONE Stop: 07/24/18 19:43 Last Admin: 07/24/18 19:49 Dose: Not Given Potassium Chloride 20 meq/ (Premix) 0 mls @ 50 mls/hr IV ONETIME ONE Stop: 07/25/18 06:00 Last Admin: 07/25/18 10:06 Dose: Not Given Potassium Chloride (Kcl 20 Meq In Water 100 Ml) 100 mls @ 50 mls/hr IV Q2H [facility] Stop: 07/25/18 10:59 Last Admin: 07/25/18 09:02 Dose: 50 mls/hr Potassium Chloride 20 meq/Lidocaine HCl 2 ml/ Sodium Chloride 112 mls @ 50 mls/ hr IV Q2H [facility] Stop: 07/25/18 18:29 Last Admin: 07/25/18 17:11 Dose: 50 mls/hr Potassium Chloride 20 meq/Lidocaine HCl 2 ml/ Sodium Chloride 112 mls @ 56 mls/ hr IV Q2H [facility] Stop: 07/26/18 13:29 Last Admin: 07/26/18 12:31 Dose: 56 mls/hr Potassium Chloride/Dextrose/Sod Cl (D5 1/2 Ns W/ 20 Meq/L Kcl) 1,000 mls @ 75 mls/hr IV ASDIRECTED [facility] Last Admin: 07/27/18 03:56 Dose: 75 mls/hr Potassium Chloride/Dextrose/Sod Cl (D5 1/2 Ns W/ 20 Meq/L Kcl) 1,000 mls @ 50 mls/hr IV ASDIRECTED [facility] Last Admin: 07/29/18 18:36 Dose: 50 mls/hr Potassium Chloride 20 meq/Lidocaine HCl 2 ml/ Sodium Chloride 112 mls @ 50 mls/ hr IV Q2H [facility] Stop: 07/28/18 13:59 Last Admin: 07/28/18 12:23 Dose: 50 mls/hr Sodium Chloride (Normal Saline) 500 mls @ 500 mls/hr IV .BOLUS ONE Stop: 07/28/18 19:36 Last Admin: 07/28/18 18:40 Dose: 500 mls/hr Potassium Chloride 20 meq/ (Premix) 100 mls @ 50 mls/hr IV Q2H [facility] Stop: 07/31/18 08:00 Last Admin: 07/31/18 06:35 Dose: 50 mls/hr Potassium Chloride 20 meq/Lidocaine HCl 2 ml/ Sodium Chloride 112 mls @ 56 mls/ hr IV ONETIME ONE Stop: 07/31/18 10:29 Last Admin: 07/31/18 08:27 Dose: 56 mls/hr Sodium Chloride (Normal Saline) 1,000 mls @ 125 mls/hr IV ASDIRECTED [facility] Last Admin: 08/01/18 03:23 Dose: 125 mls/hr Ampicillin Sodium/Sulbactam (Sodium 1.5 gm/ Sodium Chloride) 50 mls @ 100 mls/ hr IV Q6H [facility] Last Admin: 08/07/18 04:32 Dose: 100 mls/hr Ibuprofen (Motrin) 600 mg PO Q6H PRN PRN Reason: Pain/Fever Last Admin: 08/03/18 03:03 Dose: 600 mg Ketorolac Tromethamine (Toradol) 30 mg IVPUSH Q6H PRN PRN Reason: Pain Stop: 08/08/18 08:36 Last Admin: 08/03/18 19:52 Dose: 30 mg Lidocaine HCl (Xylocaine-Mpf 1%) 2 ml INJECT ONETIME ONE Stop: 07/25/18 06:02 Last Admin: 07/25/18 06:32 Dose: 2 ml Lidocaine HCl (Xylocaine-Mpf 1%) 2 ml INJECT ONETIME ONE Stop: 07/31/18 05:56 Last Admin: 07/31/18 06:41 Dose: 2 ml Loperamide HCl (Imodium) 2 mg PO Q4H PRN PRN Reason: Diarrhea Last Admin: 07/31/18 10:17 Dose: 2 mg Lorazepam (Ativan) 0 mg PO ASDIRECTED [facility]; Protocol Last Admin: 07/29/18 15:46 Dose: 1 mg Lorazepam (Ativan) 0 mg IV ASDIRECTED [facility]; Protocol Last Admin: 07/28/18 08:13 Dose: 2 mg Lorazepam (Ativan) 2 mg IVPUSH ASDIRECTED PRN PRN Reason: Seizures Last Admin: 07/28/18 09:00 Dose: 2 mg Lorazepam (Ativan) 1 mg PO ONETIME ONE Stop: 08/03/18 22:34 Last Admin: 08/03/18 22:51 Dose: 1 mg Pantoprazole Sodium (Protonix Iv) 40 mg IV DAILY [facility] Last Admin: 07/24/18 19:52 Dose: 40 mg Pantoprazole Sodium (Protonix Iv) 40 mg IV Q24H [facility] Last Admin: 07/26/18 16:11 Dose: 40 mg Potassium Chloride (Klor-Con M20) 40 meq PO ONETIME ONE Stop: 07/31/18 06:01 Last Admin: 07/31/18 06:31 Dose: 40 meq Potassium Chloride (Klor-Con M20) 40 meq PO ONETIME ONE Stop: 07/31/18 12:01 Last Admin: 07/31/18 11:58 Dose: 40 meq Potassium Chloride (Klor-Con M20) 40 meq PO ONETIME ONE Stop: 08/01/18 09:01 Last Admin: 08/01/18 08:22 Dose: 40 meq Potassium Chloride (Klor-Con M20) 40 meq PO ONETIME ONE Stop: 08/01/18 12:01 Last Admin: 08/01/18 11:18 Dose: 40 meq Potassium Chloride (Klor-Con M20) 40 meq PO ONETIME ONE Stop: 08/01/18 17:01 Last Admin: 08/01/18 17:03 Dose: 40 meq Potassium Chloride (Klor-Con M20) 40 meq PO ONETIME ONE Stop: 08/03/18 09:01 Last Admin: 08/03/18 09:57 Dose: 40 meq Potassium Chloride (Klor-Con M20) 40 meq PO ONETIME ONE Stop: 08/03/18 17:01 Last Admin: 08/03/18 16:22 Dose: 40 meq Potassium Chloride (Klor-Con M20) 40 meq PO ONETIME ONE Stop: 08/05/18 11:31 Last Admin: 08/05/18 11:24 Dose: 40 meq Potassium Chloride (Klor-Con M20) 40 meq PO ONETIME ONE Stop: 08/05/18 17:01 Last Admin: 08/05/18 16:49 Dose: 40 meq Potassium Chloride (Klor-Con M20) 40 meq PO BID [facility] Stop: 08/07/18 21:01 Last Admin: 08/07/18 20:55 Dose: 40 meq Potassium Chloride (Klor-Con M20) 40 meq PO ONETIME ONE Stop: 08/08/18 09:01 Last Admin: 08/08/18 09:59 Dose: 40 meq Vancomycin HCl (Vancocin 250 Mg/5 Ml Soln) 250 mg PO Q6HR [facility] Last Admin: 08/06/18 10:58 Dose: 250 mg - Exam Quality Assessment: No: Supplemental Oxygen General: Alert, Cooperative, No Acute Distress HEENT: Scleral Icterus Lungs: Clear to Auscultation, Normal Respiratory Effort Cardiovascular: Regular Rate, Regular Rhythm, No Murmurs GI/Abdominal Exam: Soft, No Distention Extremities: Pedal Edema (trace bilateral ankle edema). No: Increased Warmth Skin: Warm, Dry, Other (jaundice) Psy/Mental Status: Alert. No: Agitated - Problem List & Annotations (1) Alcoholic hepatitis without ascites SNOMED Code(s): 456238254 Code(s): K70.10 - ALCOHOLIC HEPATITIS WITHOUT ASCITES Status: Resolved Current Visit: No (2) Alcohol abuse SNOMED Code(s): 24085573 Code(s): F10.10 - ALCOHOL ABUSE, UNCOMPLICATED Status: Acute Current Visit: Yes (3) Hypokalemia SNOMED Code(s): 69411646 Code(s): E87.6 - HYPOKALEMIA Status: Resolved Current Visit: No (4) Tobacco dependence SNOMED Code(s): 34777220 Code(s): F17.200 - NICOTINE DEPENDENCE, UNSPECIFIED, UNCOMPLICATED Status: Chronic Current Visit: Yes - Problem List Review Problem List Initiated/Reviewed/Updated: Yes - My Orders Last 24 Hours: My Active Orders 08/08/18 14:00 prednisoLONE [OraPred 15 MG/5ML Soln] 40 mg PO DAILY 08/10/18 05:00 AMMONIA VENOUS [CHEM] Timed CBC W/O DIFF,HEMOGRAM [HEME] Timed (1) HEPATIC FUNCTION PANEL,HFP [CHEM] Timed POTASSIUM,K [CHEM] Timed - Plan Plan:: ASSESSMENT AND PLAN - Alcoholic hepatitis/cirrhosis - bilirubin remains elevated and has risen even further since yesterday. Today is day 2 of steroids. Still no complaints of abdominal pain or nausea. He is hallucinating. Ammonia level is normal. Both mother and father updated today about rising bilirubin and concerns of worsening liver function. -Saline lock IV -Continue prednisolone 40 mg daily -Repeat liver labs in the morning -Symptomatic management for pain or nausea Acute acalculous cholecystitis, suspected - ultrasound showed distended gallbladder with sludge and mild wall thickening. Patient is asymptomatic. HIDA did not help evaluate gallbladder function because of diffuse hepatocellular disease. -Continue Augmentin -Consider outpatient surgical follow-up unless symptoms develop Clostridium difficile colitis - diarrhea slowly improving. Tolerating oral vancomycin so far. -Continue vancomycin for total of 2 weeks (treatment through August 18) -contact precautions until diarrhea resolves Alcohol abuse - alcohol withdrawal has resolved. Petition for commitment completed and next hearing is August 14. -Melatonin at bedtime -Currently on a court hold pending commitment Severe anxiety -Citalopram 20 mg by mouth daily -discontinue Depakote with concerns of potential problems in the setting of severe liver disease Hypokalemia - potassium level acceptable today. -Recheck again in the morning Tobacco dependence - no interest in quitting at this time. Current cigarette allowance is 3 per day. -Nicotine patch Maintenance issues - - DVT prophylaxis - mechanical - GI prophylaxis - PPI - Nutrition - regular diet Disposition - I would anticipate discharge to inpatient alcohol treatment after the hospital stay if he survives his severe alcoholic hepatitis Kiran Sharma M.D.
[2018-08-09] MEDS: Nicotine 14 MG/24 Hr Patch TRDERM PRN (13:01)
[2018-08-09] MEDS: Melatonin 3 MG Tab PO SCH (20:24)
[2018-08-10] MEDS: Vancomycin 250 MG/5 ML ML Oral Solution PO SCH ×4 (04:00→21:11)
[2018-08-10] MEDS ORDERED: Potassium Chloride 20 MEQ Tab.ER PO ONE (06:58)
[2018-08-10] MEDS: Pantoprazole 40 MG Tab.CR PO SCH (07:11)
[2018-08-10] MEDS: Citalopram 20 MG Tab PO SCH (08:21)
[2018-08-10] MEDS: Lactobacillus Rhamnosus GG (Probiotic) Cap PO SCH ×2 (08:22→21:09)
[2018-08-10] MEDS: Amoxicillin/Clavulanate K 875-125 MG Tab PO SCH ×2 (08:22→21:09)
[2018-08-10] MEDS: DULoxetine 30 MG Cap PO SCH ×2 (08:22→21:11)
[2018-08-10] MEDS: Folic Acid 1 MG Tab PO SCH (08:23)
[2018-08-10] MEDS: prednisoLONE 15 MG/5 ML Soln UD Cup PO SCH (08:23)
[2018-08-10] MEDS: Thiamine 100 MG Tab PO SCH (08:23)
[2018-08-10] MEDS: Nicotine 14 MG/24 Hr Patch TRDERM PRN (08:24)
--- NOTE | 2018-08-10 09:22 | PCM.PN ---
- General Info Date of Service: 08/10/18 Subjective Update: there were no acute events overnight. Patient does not report any abdominal pain or nausea today. He has been tolerating his diet. No hallucinations today. He is more alert and interactive today. Bilirubin is slightly better. Tolerating current antibiotics. Functional Status: Reports: Pain Controlled, Tolerating Diet, Ambulating - Review of Systems General: Reports: Weakness Gastrointestinal: Reports: Diarrhea - Patient Data Vitals - Most Recent: Last Vital Signs Temp 36.0 C 08/10/18 07:28 Pulse 96 08/10/18 07:28 Resp 20 08/10/18 07:28 BP 135/92 H 08/10/18 07:28 Pulse Ox 100 08/10/18 04:00 Orthostatic Blood Pressure [ 107/48 Standing] Orthostatic Blood Pressure [ 107/73 Sitting] Orthostatic Blood Pressure [ 121/83 Supine] Weight - Most Recent: 76.938 kg I&O - Last 24 Hours: Intake & Output 08/09/18 08/10/18 08/10/18 22:59 06:59 14:59 Intake Total 1200 Balance 1200 Lab Results Last 24 Hours: Laboratory Results - last 24 hr 08/10/18 08/10/18 08/10/18 Range/Units 05:56 05:56 05:56 WBC 12.3 H (4.5-11.0) K/uL RBC 3.25 L (4.30-5.90) M/uL Hgb 10.3 L (12.0-15.0) g/dL Hct 31.0 L (40.0-54.0) % MCV 95 (80-98) fL MCH 32 H (27-31) pg MCHC 33 (32-36) % Plt Count 225 (150-400) K/uL Potassium 2.7 L* (3.6-5.2) mmol/L Total Bilirubin 23.9 H (0.2-1.0) mg/dL Direct Bilirubin 19.45 H (0.0-0.2) mg/dL Indirect Bilirubin 4.45 AST 200 H (15-37) U/L ALT 251 H (12-78) U/L Alkaline Phosphatase 402 H (46-116) U/L Ammonia 25 (11-32) mmol/L Total Protein 5.5 L (6.4-8.2) g/dL Albumin 1.9 L (3.4-5.0) g/dL Globulin 3.6 H (2.3-3.5) g/dL Albumin/Globulin Ratio 0.5 L (1.2-2.2) Med Orders - Current: Current Medications Amoxicillin/Clavulanate Potassium (Augmentin 875 Mg/125 Mg) 1 tab PO Q12H [facility] Last Admin: 08/10/18 08:22 Dose: 1 tab Citalopram Hydrobromide (Celexa) 20 mg PO DAILY [facility] Last Admin: 08/10/18 08:21 Dose: 20 mg Duloxetine HCl (Cymbalta) 30 mg PO BID [facility] Last Admin: 08/10/18 08:22 Dose: 30 mg Folic Acid (Folic Acid) 1 mg PO DAILY [facility] Last Admin: 08/10/18 08:23 Dose: 1 mg Lactobacillus Rhamnosus (Culturelle) 1 cap PO BID [facility] Last Admin: 08/10/18 08:22 Dose: 1 cap Magnesium Hydroxide (Milk Of Magnesia) 30 ml PO Q12H PRN PRN Reason: Constipation Melatonin (Melatonin) 9 mg PO BEDTIME [facility] Last Admin: 08/09/18 20:24 Dose: 9 mg Nicotine (Habitrol) 14 mg TRDERM DAILY PRN PRN Reason: nicotine craving Last Admin: 08/10/18 08:24 Dose: 14 mg Ondansetron HCl (Zofran Odt) 4 mg PO Q6H PRN PRN Reason: Nausea able to take PO Last Admin: 08/02/18 15:15 Dose: 4 mg Ondansetron HCl (Zofran) 4 mg IV Q6H PRN PRN Reason: Nausea/Vomiting Pantoprazole Sodium (Protonix) 40 mg PO ACBREAKFAST [facility] Last Admin: 08/10/18 07:11 Dose: 40 mg Potassium Chloride (Klor-Con M20) 40 meq PO TID [facility] Prednisolone (Orapred 15 Mg/5ml Soln) 40 mg PO DAILY [facility] Last Admin: 08/10/18 08:23 Dose: 40 mg Senna/Docusate Sodium (Senna Plus) 1 tab PO BID PRN PRN Reason: Constipation Thiamine HCl (Vitamin B-1) 100 mg PO DAILY [facility] Last Admin: 08/10/18 08:23 Dose: 100 mg Vancomycin HCl (Vancocin 250 Mg/5 Ml Soln) 125 mg PO Q6HR [facility] Stop: 08/18/18 22:30 Last Admin: 08/10/18 04:00 Dose: 125 mg Discontinued Medications Diphenoxylate HCl/Atropine (Lomotil 0.025-2.5 Mg) 1 tab PO Q4H PRN PRN Reason: Diarrhea Last Admin: 08/05/18 20:46 Dose: 1 tab Divalproex Sodium (Divalproex Sodium) 250 mg PO BIDMEALS [facility] Last Admin: 08/09/18 07:40 Dose: 250 mg Duloxetine HCl (Cymbalta) 30 mg PO DAILY [facility] Last Admin: 08/02/18 07:59 Dose: 30 mg Gabapentin (Neurontin) 400 mg PO TID [facility] Last Admin: 07/29/18 10:03 Dose: Not Given Gabapentin (Neurontin) 200 mg PO TID [facility] Last Admin: 08/01/18 13:21 Dose: 200 mg Haloperidol Lactate (Haldol) 2 mg IVPUSH Q4H PRN PRN Reason: Agitation Last Admin: 07/28/18 01:45 Dose: 2 mg Haloperidol Lactate (Haldol) 5 mg IM ONETIME STA Stop: 07/30/18 06:02 Last Admin: 07/30/18 06:16 Dose: 5 mg Hydromorphone HCl (Dilaudid) 0.5 mg IVPUSH Q2H PRN PRN Reason: Headache Last Admin: 08/03/18 01:19 Dose: 0.5 mg Multivitamins/Minerals 10 ml/Thiamine HCl 100 mg/ Folic Acid 1 mg/ Magnesium Sulfate 3 gm/ Sodium Chloride 1,017.2 mls @ 1,000 mls/hr IV ASDIRECTED [facility] Multivitamins/Minerals 10 ml/Thiamine HCl 100 mg/ Folic Acid 1 mg/ Magnesium Sulfate 3 gm/ Sodium Chloride 1,017.2 mls @ 500 mls/hr IV ASDIRECTED ONE Stop: 07/24/18 19:02 Last Admin: 07/24/18 17:03 Dose: 500 mls/hr Dextrose/Sodium Chloride (Dextrose 5%-Normal Saline) 1,000 mls @ 125 mls/hr IV ASDIRECTED [facility] Last Admin: 07/26/18 10:23 Dose: 125 mls/hr Potassium Chloride 20 meq/Lidocaine HCl 2 ml/ Sodium Chloride 112 mls @ 50 mls/ hr IV Q2H [facility] Stop: 07/24/18 22:03 Last Admin: 07/24/18 22:00 Dose: 50 mls/hr Potassium Chloride (Kcl 20 Meq In Water 100 Ml) Confirm Administered Dose 200 mls @ as directed .ROUTE .STK-MED ONE Stop: 07/24/18 19:43 Last Admin: 07/24/18 19:49 Dose: Not Given Potassium Chloride 20 meq/ (Premix) 0 mls @ 50 mls/hr IV ONETIME ONE Stop: 07/25/18 06:00 Last Admin: 07/25/18 10:06 Dose: Not Given Potassium Chloride (Kcl 20 Meq In Water 100 Ml) 100 mls @ 50 mls/hr IV Q2H [facility] Stop: 07/25/18 10:59 Last Admin: 07/25/18 09:02 Dose: 50 mls/hr Potassium Chloride 20 meq/Lidocaine HCl 2 ml/ Sodium Chloride 112 mls @ 50 mls/ hr IV Q2H [facility] Stop: 07/25/18 18:29 Last Admin: 07/25/18 17:11 Dose: 50 mls/hr Potassium Chloride 20 meq/Lidocaine HCl 2 ml/ Sodium Chloride 112 mls @ 56 mls/ hr IV Q2H [facility] Stop: 07/26/18 13:29 Last Admin: 07/26/18 12:31 Dose: 56 mls/hr Potassium Chloride/Dextrose/Sod Cl (D5 1/2 Ns W/ 20 Meq/L Kcl) 1,000 mls @ 75 mls/hr IV ASDIRECTED [facility] Last Admin: 07/27/18 03:56 Dose: 75 mls/hr Potassium Chloride/Dextrose/Sod Cl (D5 1/2 Ns W/ 20 Meq/L Kcl) 1,000 mls @ 50 mls/hr IV ASDIRECTED [facility] Last Admin: 07/29/18 18:36 Dose: 50 mls/hr Potassium Chloride 20 meq/Lidocaine HCl 2 ml/ Sodium Chloride 112 mls @ 50 mls/ hr IV Q2H [facility] Stop: 07/28/18 13:59 Last Admin: 07/28/18 12:23 Dose: 50 mls/hr Sodium Chloride (Normal Saline) 500 mls @ 500 mls/hr IV .BOLUS ONE Stop: 07/28/18 19:36 Last Admin: 07/28/18 18:40 Dose: 500 mls/hr Potassium Chloride 20 meq/ (Premix) 100 mls @ 50 mls/hr IV Q2H [facility] Stop: 07/31/18 08:00 Last Admin: 07/31/18 06:35 Dose: 50 mls/hr Potassium Chloride 20 meq/Lidocaine HCl 2 ml/ Sodium Chloride 112 mls @ 56 mls/ hr IV ONETIME ONE Stop: 07/31/18 10:29 Last Admin: 07/31/18 08:27 Dose: 56 mls/hr Sodium Chloride (Normal Saline) 1,000 mls @ 125 mls/hr IV ASDIRECTED [facility] Last Admin: 08/01/18 03:23 Dose: 125 mls/hr Ampicillin Sodium/Sulbactam (Sodium 1.5 gm/ Sodium Chloride) 50 mls @ 100 mls/ hr IV Q6H [facility] Last Admin: 08/07/18 04:32 Dose: 100 mls/hr Ibuprofen (Motrin) 600 mg PO Q6H PRN PRN Reason: Pain/Fever Last Admin: 08/03/18 03:03 Dose: 600 mg Ketorolac Tromethamine (Toradol) 30 mg IVPUSH Q6H PRN PRN Reason: Pain Stop: 08/08/18 08:36 Last Admin: 08/03/18 19:52 Dose: 30 mg Lidocaine HCl (Xylocaine-Mpf 1%) 2 ml INJECT ONETIME ONE Stop: 07/25/18 06:02 Last Admin: 07/25/18 06:32 Dose: 2 ml Lidocaine HCl (Xylocaine-Mpf 1%) 2 ml INJECT ONETIME ONE Stop: 07/31/18 05:56 Last Admin: 07/31/18 06:41 Dose: 2 ml Loperamide HCl (Imodium) 2 mg PO Q4H PRN PRN Reason: Diarrhea Last Admin: 07/31/18 10:17 Dose: 2 mg Lorazepam (Ativan) 0 mg PO ASDIRECTED [facility]; Protocol Last Admin: 07/29/18 15:46 Dose: 1 mg Lorazepam (Ativan) 0 mg IV ASDIRECTED [facility]; Protocol Last Admin: 07/28/18 08:13 Dose: 2 mg Lorazepam (Ativan) 2 mg IVPUSH ASDIRECTED PRN PRN Reason: Seizures Last Admin: 07/28/18 09:00 Dose: 2 mg Lorazepam (Ativan) 1 mg PO ONETIME ONE Stop: 08/03/18 22:34 Last Admin: 08/03/18 22:51 Dose: 1 mg Nicotine (Habitrol) 14 mg TRDERM DAILY [facility] Last Admin: 08/09/18 08:20 Dose: Not Given Pantoprazole Sodium (Protonix Iv) 40 mg IV DAILY [facility] Last Admin: 07/24/18 19:52 Dose: 40 mg Pantoprazole Sodium (Protonix Iv) 40 mg IV Q24H [facility] Last Admin: 07/26/18 16:11 Dose: 40 mg Potassium Chloride (Klor-Con M20) 40 meq PO ONETIME ONE Stop: 07/31/18 06:01 Last Admin: 07/31/18 06:31 Dose: 40 meq Potassium Chloride (Klor-Con M20) 40 meq PO ONETIME ONE Stop: 07/31/18 12:01 Last Admin: 07/31/18 11:58 Dose: 40 meq Potassium Chloride (Klor-Con M20) 40 meq PO ONETIME ONE Stop: 08/01/18 09:01 Last Admin: 08/01/18 08:22 Dose: 40 meq Potassium Chloride (Klor-Con M20) 40 meq PO ONETIME ONE Stop: 08/01/18 12:01 Last Admin: 08/01/18 11:18 Dose: 40 meq Potassium Chloride (Klor-Con M20) 40 meq PO ONETIME ONE Stop: 08/01/18 17:01 Last Admin: 08/01/18 17:03 Dose: 40 meq Potassium Chloride (Klor-Con M20) 40 meq PO ONETIME ONE Stop: 08/03/18 09:01 Last Admin: 08/03/18 09:57 Dose: 40 meq Potassium Chloride (Klor-Con M20) 40 meq PO ONETIME ONE Stop: 08/03/18 17:01 Last Admin: 08/03/18 16:22 Dose: 40 meq Potassium Chloride (Klor-Con M20) 40 meq PO ONETIME ONE Stop: 08/05/18 11:31 Last Admin: 08/05/18 11:24 Dose: 40 meq Potassium Chloride (Klor-Con M20) 40 meq PO ONETIME ONE Stop: 08/05/18 17:01 Last Admin: 08/05/18 16:49 Dose: 40 meq Potassium Chloride (Klor-Con M20) 40 meq PO BID [facility] Stop: 08/07/18 21:01 Last Admin: 08/07/18 20:55 Dose: 40 meq Potassium Chloride (Klor-Con M20) 40 meq PO ONETIME ONE Stop: 08/08/18 09:01 Last Admin: 08/08/18 09:59 Dose: 40 meq Potassium Chloride (Klor-Con M20) 40 meq PO ONETIME ONE Stop: 08/10/18 06:59 Last Admin: 08/10/18 07:10 Dose: 40 meq Vancomycin HCl (Vancocin 250 Mg/5 Ml Soln) 250 mg PO Q6HR [facility] Last Admin: 08/06/18 10:58 Dose: 250 mg - Exam Quality Assessment: No: Supplemental Oxygen General: Alert, Oriented, Cooperative, No Acute Distress HEENT: Scleral Icterus Lungs: Normal Respiratory Effort GI/Abdominal Exam: Soft, Distended (mild) Extremities: Pedal Edema Skin: Other (jaundice) Psy/Mental Status: Alert, Normal Affect. No: Hallucinations - Problem List & Annotations (1) Alcoholic hepatitis without ascites SNOMED Code(s): 332091559 Code(s): K70.10 - ALCOHOLIC HEPATITIS WITHOUT ASCITES Status: Resolved Current Visit: No (2) Alcohol abuse SNOMED Code(s): 35071017 Code(s): F10.10 - ALCOHOL ABUSE, UNCOMPLICATED Status: Acute Current Visit: Yes (3) Hypokalemia SNOMED Code(s): 76199536 Code(s): E87.6 - HYPOKALEMIA Status: Resolved Current Visit: No (4) Tobacco dependence SNOMED Code(s): 93674296 Code(s): F17.200 - NICOTINE DEPENDENCE, UNSPECIFIED, UNCOMPLICATED Status: Chronic Current Visit: Yes - Problem List Review Problem List Initiated/Reviewed/Updated: Yes - My Orders Last 24 Hours: My Active Orders 08/09/18 09:22 Nicotine [Habitrol] 14 mg TRDERM DAILY PRN 08/10/18 14:00 Potassium Chloride [Klor-Con M20] 40 meq PO TID 08/11/18 05:00 COMPREHENSIVE METABOLIC PN,CMP [CHEM] Timed - Plan Plan:: ASSESSMENT AND PLAN - Alcoholic hepatitis/cirrhosis - bilirubin remains elevated but is slightly better today. Patient is more alert and interactive. Tolerating steroids. -Saline lock IV -Continue prednisolone 40 mg daily -Repeat liver labs in the morning -Symptomatic management for pain or nausea Acute acalculous cholecystitis, suspected - ultrasound showed distended gallbladder with sludge and mild wall thickening. Patient is asymptomatic. HIDA did not help evaluate gallbladder function because of diffuse hepatocellular disease. -Continue Augmentin (treatment will end after dosing on Monday) -Consider outpatient surgical follow-up unless symptoms develop Clostridium difficile colitis - diarrhea slowly improving. Tolerating oral vancomycin so far. -Continue vancomycin for total of 2 weeks (treatment through August 18) -contact precautions until diarrhea resolves Alcohol abuse - alcohol withdrawal has resolved. Petition for commitment completed and next hearing is August 14. -Melatonin at bedtime -Currently on a court hold pending commitment Severe anxiety -Citalopram 20 mg by mouth daily -discontinue Depakote with concerns of potential problems in the setting of severe liver disease Hypokalemia - potassium level low again today. -Potassium supplementation 3 times today -Recheck again in the morning Tobacco dependence - no interest in quitting at this time. Current cigarette allowance is 3 per day. -Nicotine patch Maintenance issues - - DVT prophylaxis - mechanical - GI prophylaxis - PPI - Nutrition - regular diet Disposition - I would anticipate discharge to inpatient alcohol treatment after the hospital stay if he survives his severe alcoholic hepatitis Kiran Sharma M.D.
[2018-08-10] MEDS: Potassium Chloride 20 MEQ Tab.ER PO SCH ×2 (13:08→21:09)
[2018-08-10] MEDS: Melatonin 3 MG Tab PO SCH (21:09)
[2018-08-11] MEDS: Vancomycin 250 MG/5 ML ML Oral Solution PO SCH ×4 (04:32→21:08)
[2018-08-11] MEDS: Pantoprazole 40 MG Tab.CR PO SCH (07:48)
[2018-08-11] MEDS: Amoxicillin/Clavulanate K 875-125 MG Tab PO SCH ×2 (08:55→21:05)
[2018-08-11] MEDS: Citalopram 20 MG Tab PO SCH (08:55)
[2018-08-11] MEDS: Potassium Chloride 20 MEQ Tab.ER PO SCH ×3 (08:55→21:06)
[2018-08-11] MEDS: Folic Acid 1 MG Tab PO SCH (08:56)
[2018-08-11] MEDS: DULoxetine 30 MG Cap PO SCH ×2 (08:56→21:06)
[2018-08-11] MEDS: Lactobacillus Rhamnosus GG (Probiotic) Cap PO SCH ×2 (08:56→21:05)
[2018-08-11] MEDS: Thiamine 100 MG Tab PO SCH (08:57)
[2018-08-11] MEDS: prednisoLONE 15 MG/5 ML Soln UD Cup PO SCH (08:57)
[2018-08-11] MEDS: Nicotine 14 MG/24 Hr Patch TRDERM PRN (09:19)
--- NOTE | 2018-08-11 09:22 | PCM.PN ---
- General Info Date of Service: 08/11/18 Subjective Update: There were no acute events overnight. Patient seems to be hallucinating today and thinks that he sees either cats or babies in his room. He seems a little bit more agitated today and is insistent that he gets more cigarettes or gets to go home. He does not complain of any abdominal pain or nausea. He has not had any fevers. Bilirubin level is slightly better today. He continues to have diarrhea though it does seem to be slowing a little bit. Functional Status: Reports: Pain Controlled, Tolerating Diet - Review of Systems General: Denies: Fever Psychiatric: Reports: Confusion, Hallucinations - Patient Data Vitals - Most Recent: Last Vital Signs Temp 36.8 C 08/11/18 04:00 Pulse 105 H 08/11/18 04:00 Resp 18 08/11/18 04:00 BP 139/89 08/11/18 04:00 Pulse Ox 97 08/11/18 04:00 Orthostatic Blood Pressure [ 107/48 Standing] Orthostatic Blood Pressure [ 107/73 Sitting] Orthostatic Blood Pressure [ 121/83 Supine] Weight - Most Recent: 72.212 kg I&O - Last 24 Hours: Intake & Output 08/10/18 08/11/18 08/11/18 22:59 06:59 14:59 Intake Total 1999 Balance 1999 Lab Results Last 24 Hours: Laboratory Results - last 24 hr 08/11/18 Range/Units 05:00 Sodium 139 L (140-148) mmol/L Potassium 3.3 L (3.6-5.2) mmol/L Chloride 103 (100-108) mmol/L Carbon Dioxide 26 (21-32) mmol/L Anion Gap 13.3 (5.0-14.0) mmol/L BUN 7 (7-18) mg/dL Creatinine 0.6 L (0.8-1.3) mg/dL Est Cr Clr Drug Dosing 175.52 mL/min Estimated GFR (MDRD) > 60 (>60) Glucose 93 (74-106) mg/dL Calcium 8.5 (8.5-10.1) mg/dL Total Bilirubin 21.3 H (0.2-1.0) mg/dL AST 145 H (15-37) U/L ALT 212 H (12-78) U/L Alkaline Phosphatase 351 H (46-116) U/L Total Protein 5.0 L (6.4-8.2) g/dL Albumin 1.6 L (3.4-5.0) g/dL Globulin 3.4 (2.3-3.5) g/dL Albumin/Globulin Ratio 0.5 L (1.2-2.2) Med Orders - Current: Current Medications Amoxicillin/Clavulanate Potassium (Augmentin 875 Mg/125 Mg) 1 tab PO Q12H [facility] Last Admin: 08/11/18 08:55 Dose: 1 tab Citalopram Hydrobromide (Celexa) 20 mg PO DAILY [facility] Last Admin: 08/11/18 08:55 Dose: 20 mg Duloxetine HCl (Cymbalta) 30 mg PO BID [facility] Last Admin: 08/11/18 08:56 Dose: 30 mg Folic Acid (Folic Acid) 1 mg PO DAILY [facility] Last Admin: 08/11/18 08:56 Dose: 1 mg Lactobacillus Rhamnosus (Culturelle) 1 cap PO BID [facility] Last Admin: 08/11/18 08:56 Dose: 1 cap Magnesium Hydroxide (Milk Of Magnesia) 30 ml PO Q12H PRN PRN Reason: Constipation Melatonin (Melatonin) 9 mg PO BEDTIME [facility] Last Admin: 08/10/18 21:09 Dose: Not Given Nicotine (Habitrol) 14 mg TRDERM DAILY PRN PRN Reason: nicotine craving Last Admin: 08/11/18 09:19 Dose: 14 mg Ondansetron HCl (Zofran Odt) 4 mg PO Q6H PRN PRN Reason: Nausea able to take PO Last Admin: 08/02/18 15:15 Dose: 4 mg Ondansetron HCl (Zofran) 4 mg IV Q6H PRN PRN Reason: Nausea/Vomiting Pantoprazole Sodium (Protonix) 40 mg PO ACBREAKFAST [facility] Last Admin: 08/11/18 07:48 Dose: 40 mg Potassium Chloride (Klor-Con M20) 40 meq PO TID [facility] Last Admin: 08/11/18 08:55 Dose: 40 meq Prednisolone (Orapred 15 Mg/5ml Soln) 40 mg PO DAILY [facility] Last Admin: 08/11/18 08:57 Dose: 40 mg Quetiapine Fumarate (Seroquel) 25 mg PO BID [facility] Senna/Docusate Sodium (Senna Plus) 1 tab PO BID PRN PRN Reason: Constipation Thiamine HCl (Vitamin B-1) 100 mg PO DAILY [facility] Last Admin: 08/11/18 08:57 Dose: 100 mg Vancomycin HCl (Vancocin 250 Mg/5 Ml Soln) 125 mg PO Q6HR [facility] Stop: 08/18/18 22:30 Last Admin: 08/11/18 04:32 Dose: 125 mg Discontinued Medications Diphenoxylate HCl/Atropine (Lomotil 0.025-2.5 Mg) 1 tab PO Q4H PRN PRN Reason: Diarrhea Last Admin: 08/05/18 20:46 Dose: 1 tab Divalproex Sodium (Divalproex Sodium) 250 mg PO BIDMEALS [facility] Last Admin: 08/09/18 07:40 Dose: 250 mg Duloxetine HCl (Cymbalta) 30 mg PO DAILY [facility] Last Admin: 08/02/18 07:59 Dose: 30 mg Gabapentin (Neurontin) 400 mg PO TID [facility] Last Admin: 07/29/18 10:03 Dose: Not Given Gabapentin (Neurontin) 200 mg PO TID [facility] Last Admin: 08/01/18 13:21 Dose: 200 mg Haloperidol Lactate (Haldol) 2 mg IVPUSH Q4H PRN PRN Reason: Agitation Last Admin: 07/28/18 01:45 Dose: 2 mg Haloperidol Lactate (Haldol) 5 mg IM ONETIME [facility] Stop: 07/30/18 06:02 Last Admin: 07/30/18 06:16 Dose: 5 mg Hydromorphone HCl (Dilaudid) 0.5 mg IVPUSH Q2H PRN PRN Reason: Headache Last Admin: 08/03/18 01:19 Dose: 0.5 mg Multivitamins/Minerals 10 ml/Thiamine HCl 100 mg/ Folic Acid 1 mg/ Magnesium Sulfate 3 gm/ Sodium Chloride 1,017.2 mls @ 1,000 mls/hr IV ASDIRECTED [facility] Multivitamins/Minerals 10 ml/Thiamine HCl 100 mg/ Folic Acid 1 mg/ Magnesium Sulfate 3 gm/ Sodium Chloride 1,017.2 mls @ 500 mls/hr IV ASDIRECTED ONE Stop: 07/24/18 19:02 Last Admin: 07/24/18 17:03 Dose: 500 mls/hr Dextrose/Sodium Chloride (Dextrose 5%-Normal Saline) 1,000 mls @ 125 mls/hr IV ASDIRECTED [facility] Last Admin: 07/26/18 10:23 Dose: 125 mls/hr Potassium Chloride 20 meq/Lidocaine HCl 2 ml/ Sodium Chloride 112 mls @ 50 mls/ hr IV Q2H [facility] Stop: 07/24/18 22:03 Last Admin: 07/24/18 22:00 Dose: 50 mls/hr Potassium Chloride (Kcl 20 Meq In Water 100 Ml) Confirm Administered Dose 200 mls @ as directed .ROUTE .STK-MED ONE Stop: 07/24/18 19:43 Last Admin: 07/24/18 19:49 Dose: Not Given Potassium Chloride 20 meq/ (Premix) 0 mls @ 50 mls/hr IV ONETIME ONE Stop: 07/25/18 06:00 Last Admin: 07/25/18 10:06 Dose: Not Given Potassium Chloride (Kcl 20 Meq In Water 100 Ml) 100 mls @ 50 mls/hr IV Q2H [facility] Stop: 07/25/18 10:59 Last Admin: 07/25/18 09:02 Dose: 50 mls/hr Potassium Chloride 20 meq/Lidocaine HCl 2 ml/ Sodium Chloride 112 mls @ 50 mls/ hr IV Q2H [facility] Stop: 07/25/18 18:29 Last Admin: 07/25/18 17:11 Dose: 50 mls/hr Potassium Chloride 20 meq/Lidocaine HCl 2 ml/ Sodium Chloride 112 mls @ 56 mls/ hr IV Q2H [facility] Stop: 07/26/18 13:29 Last Admin: 07/26/18 12:31 Dose: 56 mls/hr Potassium Chloride/Dextrose/Sod Cl (D5 1/2 Ns W/ 20 Meq/L Kcl) 1,000 mls @ 75 mls/hr IV ASDIRECTED [facility] Last Admin: 07/27/18 03:56 Dose: 75 mls/hr Potassium Chloride/Dextrose/Sod Cl (D5 1/2 Ns W/ 20 Meq/L Kcl) 1,000 mls @ 50 mls/hr IV ASDIRECTED [facility] Last Admin: 07/29/18 18:36 Dose: 50 mls/hr Potassium Chloride 20 meq/Lidocaine HCl 2 ml/ Sodium Chloride 112 mls @ 50 mls/ hr IV Q2H [facility] Stop: 07/28/18 13:59 Last Admin: 07/28/18 12:23 Dose: 50 mls/hr Sodium Chloride (Normal Saline) 500 mls @ 500 mls/hr IV .BOLUS ONE Stop: 07/28/18 19:36 Last Admin: 07/28/18 18:40 Dose: 500 mls/hr Potassium Chloride 20 meq/ (Premix) 100 mls @ 50 mls/hr IV Q2H [facility] Stop: 07/31/18 08:00 Last Admin: 07/31/18 06:35 Dose: 50 mls/hr Potassium Chloride 20 meq/Lidocaine HCl 2 ml/ Sodium Chloride 112 mls @ 56 mls/ hr IV ONETIME ONE Stop: 07/31/18 10:29 Last Admin: 07/31/18 08:27 Dose: 56 mls/hr Sodium Chloride (Normal Saline) 1,000 mls @ 125 mls/hr IV ASDIRECTED [facility] Last Admin: 08/01/18 03:23 Dose: 125 mls/hr Ampicillin Sodium/Sulbactam (Sodium 1.5 gm/ Sodium Chloride) 50 mls @ 100 mls/ hr IV Q6H [facility] Last Admin: 08/07/18 04:32 Dose: 100 mls/hr Ibuprofen (Motrin) 600 mg PO Q6H PRN PRN Reason: Pain/Fever Last Admin: 08/03/18 03:03 Dose: 600 mg Ketorolac Tromethamine (Toradol) 30 mg IVPUSH Q6H PRN PRN Reason: Pain Stop: 08/08/18 08:36 Last Admin: 08/03/18 19:52 Dose: 30 mg Lidocaine HCl (Xylocaine-Mpf 1%) 2 ml INJECT ONETIME ONE Stop: 07/25/18 06:02 Last Admin: 07/25/18 06:32 Dose: 2 ml Lidocaine HCl (Xylocaine-Mpf 1%) 2 ml INJECT ONETIME ONE Stop: 07/31/18 05:56 Last Admin: 07/31/18 06:41 Dose: 2 ml Loperamide HCl (Imodium) 2 mg PO Q4H PRN PRN Reason: Diarrhea Last Admin: 07/31/18 10:17 Dose: 2 mg Lorazepam (Ativan) 0 mg PO ASDIRECTED [facility]; Protocol Last Admin: 07/29/18 15:46 Dose: 1 mg Lorazepam (Ativan) 0 mg IV ASDIRECTED [facility]; Protocol Last Admin: 07/28/18 08:13 Dose: 2 mg Lorazepam (Ativan) 2 mg IVPUSH ASDIRECTED PRN PRN Reason: Seizures Last Admin: 07/28/18 09:00 Dose: 2 mg Lorazepam (Ativan) 1 mg PO ONETIME ONE Stop: 08/03/18 22:34 Last Admin: 08/03/18 22:51 Dose: 1 mg Nicotine (Habitrol) 14 mg TRDERM DAILY [facility] Last Admin: 08/09/18 08:20 Dose: Not Given Pantoprazole Sodium (Protonix Iv) 40 mg IV DAILY [facility] Last Admin: 07/24/18 19:52 Dose: 40 mg Pantoprazole Sodium (Protonix Iv) 40 mg IV Q24H [facility] Last Admin: 07/26/18 16:11 Dose: 40 mg Potassium Chloride (Klor-Con M20) 40 meq PO ONETIME ONE Stop: 07/31/18 06:01 Last Admin: 07/31/18 06:31 Dose: 40 meq Potassium Chloride (Klor-Con M20) 40 meq PO ONETIME ONE Stop: 07/31/18 12:01 Last Admin: 07/31/18 11:58 Dose: 40 meq Potassium Chloride (Klor-Con M20) 40 meq PO ONETIME ONE Stop: 08/01/18 09:01 Last Admin: 08/01/18 08:22 Dose: 40 meq Potassium Chloride (Klor-Con M20) 40 meq PO ONETIME ONE Stop: 08/01/18 12:01 Last Admin: 08/01/18 11:18 Dose: 40 meq Potassium Chloride (Klor-Con M20) 40 meq PO ONETIME ONE Stop: 08/01/18 17:01 Last Admin: 08/01/18 17:03 Dose: 40 meq Potassium Chloride (Klor-Con M20) 40 meq PO ONETIME ONE Stop: 08/03/18 09:01 Last Admin: 08/03/18 09:57 Dose: 40 meq Potassium Chloride (Klor-Con M20) 40 meq PO ONETIME ONE Stop: 08/03/18 17:01 Last Admin: 08/03/18 16:22 Dose: 40 meq Potassium Chloride (Klor-Con M20) 40 meq PO ONETIME ONE Stop: 08/05/18 11:31 Last Admin: 08/05/18 11:24 Dose: 40 meq Potassium Chloride (Klor-Con M20) 40 meq PO ONETIME ONE Stop: 08/05/18 17:01 Last Admin: 08/05/18 16:49 Dose: 40 meq Potassium Chloride (Klor-Con M20) 40 meq PO BID [facility] Stop: 08/07/18 21:01 Last Admin: 08/07/18 20:55 Dose: 40 meq Potassium Chloride (Klor-Con M20) 40 meq PO ONETIME ONE Stop: 08/08/18 09:01 Last Admin: 08/08/18 09:59 Dose: 40 meq Potassium Chloride (Klor-Con M20) 40 meq PO ONETIME ONE Stop: 08/10/18 06:59 Last Admin: 08/10/18 07:10 Dose: 40 meq Vancomycin HCl (Vancocin 250 Mg/5 Ml Soln) 250 mg PO Q6HR [facility] Last Admin: 08/06/18 10:58 Dose: 250 mg - Exam Quality Assessment: No: Supplemental Oxygen General: Alert, Cooperative, No Acute Distress HEENT: Scleral Icterus Lungs: Normal Respiratory Effort GI/Abdominal Exam: Soft, No Distention Extremities: Pedal Edema (mild) Psy/Mental Status: Alert, Agitated, Hallucinations - Problem List & Annotations (1) Alcoholic hepatitis without ascites SNOMED Code(s): 747882738 Code(s): K70.10 - ALCOHOLIC HEPATITIS WITHOUT ASCITES Status: Resolved Current Visit: No (2) Alcohol abuse SNOMED Code(s): 54393734 Code(s): F10.10 - ALCOHOL ABUSE, UNCOMPLICATED Status: Acute Current Visit: Yes (3) Hypokalemia SNOMED Code(s): 94797598 Code(s): E87.6 - HYPOKALEMIA Status: Resolved Current Visit: No (4) Tobacco dependence SNOMED Code(s): 47216077 Code(s): F17.200 - NICOTINE DEPENDENCE, UNSPECIFIED, UNCOMPLICATED Status: Chronic Current Visit: Yes - Problem List Review Problem List Initiated/Reviewed/Updated: Yes - My Orders Last 24 Hours: My Active Orders 08/10/18 14:00 Potassium Chloride [Klor-Con M20] 40 meq PO TID 08/11/18 09:30 QUEtiapine [SEROquel] 25 mg PO BID 08/12/18 05:00 COMPREHENSIVE METABOLIC PN,CMP [CHEM] Timed - Plan Plan:: ASSESSMENT AND PLAN - Alcoholic hepatitis/cirrhosis - bilirubin remains elevated but seems to be slowly trending down since steroids were started. He is hallucinating today and I'm not sure if that's because of his alcohol related liver disease or if it's steroids or both. -Saline lock IV -Continue prednisolone 40 mg daily -Seroquel twice daily to help with hallucinations and agitation -Repeat liver labs in the morning -Symptomatic management for pain or nausea Acute acalculous cholecystitis, suspected - ultrasound showed distended gallbladder with sludge and mild wall thickening. Patient is asymptomatic. HIDA did not help evaluate gallbladder function because of diffuse hepatocellular disease. -Continue Augmentin (treatment will end after dosing on Monday) -Consider outpatient surgical follow-up unless symptoms develop Clostridium difficile colitis - diarrhea slowly improving. Tolerating oral vancomycin so far. -Continue vancomycin for total of 2 weeks (treatment through August 18) -contact precautions until diarrhea resolves Alcohol abuse - alcohol withdrawal has resolved. Petition for commitment completed and next hearing is August 14. -Melatonin at bedtime -Currently on a court hold pending commitment Severe anxiety -Citalopram 20 mg by mouth daily -Seroquel twice daily Hypokalemia - potassium level low again today. -Potassium supplementation 3 times today -Recheck again in the morning Tobacco dependence - no interest in quitting at this time. Current cigarette allowance is 3 per day. -Nicotine patch Maintenance issues - - DVT prophylaxis - mechanical - GI prophylaxis - PPI - Nutrition - regular diet Disposition - I would anticipate discharge to inpatient alcohol treatment after the hospital stay if he survives his severe alcoholic hepatitis Kiran Sharma M.D.
[2018-08-11] MEDS: QUEtiapine 25 MG Tab PO SCH ×2 (10:29→21:06)
[2018-08-11] MEDS: Melatonin 3 MG Tab PO SCH (21:07)
[2018-08-12] MEDS: Vancomycin 250 MG/5 ML ML Oral Solution PO SCH ×4 (03:43→21:12)
[2018-08-12] MEDS: Pantoprazole 40 MG Tab.CR PO SCH (07:28)
[2018-08-12] MEDS: Nicotine 14 MG/24 Hr Patch TRDERM PRN (08:15)
[2018-08-12] MEDS: Potassium Chloride 20 MEQ Tab.ER PO SCH ×2 (08:16→10:28)
[2018-08-12] MEDS: Amoxicillin/Clavulanate K 875-125 MG Tab PO SCH (08:16)
[2018-08-12] MEDS: Lactobacillus Rhamnosus GG (Probiotic) Cap PO SCH ×2 (08:17→21:12)
[2018-08-12] MEDS: Citalopram 20 MG Tab PO SCH (08:17)
[2018-08-12] MEDS: DULoxetine 30 MG Cap PO SCH ×2 (08:17→21:12)
[2018-08-12] MEDS: Folic Acid 1 MG Tab PO SCH (08:17)
[2018-08-12] MEDS: prednisoLONE 15 MG/5 ML Soln UD Cup PO SCH (08:18)
[2018-08-12] MEDS: QUEtiapine 25 MG Tab PO SCH ×2 (08:18→21:12)
[2018-08-12] MEDS: Thiamine 100 MG Tab PO SCH (08:18)
--- NOTE | 2018-08-12 11:26 | PCM.PN ---
- General Info Date of Service: 08/12/18 Subjective Update: There were no acute events overnight. Patient continues to have diarrhea but his stool is no longer watery and is now loose. He has not had any fevers. No complaints of abdominal pain or nausea. He does report hallucinations and sees 3 other people in the room with us today. 2 of them are familiar and one is a stranger. Functional Status: Reports: Pain Controlled - Review of Systems General: Denies: Fever Gastrointestinal: Denies: Abdominal Pain Psychiatric: Reports: Hallucinations - Patient Data Vitals - Most Recent: Last Vital Signs Temp 36.2 C 08/12/18 07:00 Pulse 102 H 08/12/18 07:00 Resp 20 08/12/18 07:00 BP 121/84 08/12/18 07:00 Pulse Ox 98 08/12/18 03:46 Orthostatic Blood Pressure [ 107/48 Standing] Orthostatic Blood Pressure [ 107/73 Sitting] Orthostatic Blood Pressure [ 121/83 Supine] Weight - Most Recent: 71.441 kg I&O - Last 24 Hours: Intake & Output 08/11/18 08/12/18 08/12/18 22:59 06:59 14:59 Intake Total 1800 1980 Balance 1800 1979 Lab Results Last 24 Hours: Laboratory Results - last 24 hr 08/12/18 Range/Units 05:05 Sodium 139 L (140-148) mmol/L Potassium 3.9 (3.6-5.2) mmol/L Chloride 105 (100-108) mmol/L Carbon Dioxide 24 (21-32) mmol/L Anion Gap 13.9 (5.0-14.0) mmol/L BUN 9 (7-18) mg/dL Creatinine 0.7 L (0.8-1.3) mg/dL Est Cr Clr Drug Dosing 150.44 mL/min Estimated GFR (MDRD) > 60 (>60) Glucose 76 (74-106) mg/dL Calcium 8.7 (8.5-10.1) mg/dL Total Bilirubin 21.5 H (0.2-1.0) mg/dL AST 131 H (15-37) U/L ALT 214 H (12-78) U/L Alkaline Phosphatase 346 H (46-116) U/L Total Protein 5.5 L (6.4-8.2) g/dL Albumin 1.8 L (3.4-5.0) g/dL Globulin 3.7 H (2.3-3.5) g/dL Albumin/Globulin Ratio 0.5 L (1.2-2.2) Med Orders - Current: Current Medications Citalopram Hydrobromide (Celexa) 20 mg PO DAILY [facility] Last Admin: 08/12/18 08:17 Dose: 20 mg Duloxetine HCl (Cymbalta) 30 mg PO BID [facility] Last Admin: 08/12/18 08:17 Dose: 30 mg Folic Acid (Folic Acid) 1 mg PO DAILY [facility] Last Admin: 08/12/18 08:17 Dose: 1 mg Lactobacillus Rhamnosus (Culturelle) 1 cap PO BID [facility] Last Admin: 08/12/18 08:17 Dose: 1 cap Magnesium Hydroxide (Milk Of Magnesia) 30 ml PO Q12H PRN PRN Reason: Constipation Melatonin (Melatonin) 9 mg PO BEDTIME [facility] Last Admin: 08/11/18 21:07 Dose: 9 mg Nicotine (Habitrol) 14 mg TRDERM DAILY PRN PRN Reason: nicotine craving Last Admin: 08/12/18 08:15 Dose: 14 mg Ondansetron HCl (Zofran Odt) 4 mg PO Q6H PRN PRN Reason: Nausea able to take PO Last Admin: 08/02/18 15:15 Dose: 4 mg Ondansetron HCl (Zofran) 4 mg IV Q6H PRN PRN Reason: Nausea/Vomiting Pantoprazole Sodium (Protonix) 40 mg PO ACBREAKFAST [facility] Last Admin: 08/12/18 07:28 Dose: 40 mg Potassium Chloride (Klor-Con M20) 40 meq PO DAILY [facility] Last Admin: 08/12/18 10:28 Dose: Not Given Prednisolone (Orapred 15 Mg/5ml Soln) 40 mg PO DAILY [facility] Last Admin: 08/12/18 08:18 Dose: 40 mg Quetiapine Fumarate (Seroquel) 25 mg PO BID [facility] Last Admin: 08/12/18 08:18 Dose: 25 mg Senna/Docusate Sodium (Senna Plus) 1 tab PO BID PRN PRN Reason: Constipation Thiamine HCl (Vitamin B-1) 100 mg PO DAILY [facility] Last Admin: 08/12/18 08:18 Dose: 100 mg Vancomycin HCl (Vancocin 250 Mg/5 Ml Soln) 125 mg PO Q6HR [facility] Stop: 08/18/18 22:30 Last Admin: 08/12/18 10:31 Dose: 125 mg Discontinued Medications Amoxicillin/Clavulanate Potassium (Augmentin 875 Mg/125 Mg) 1 tab PO Q12H [facility] Last Admin: 08/12/18 08:16 Dose: 1 tab Diphenoxylate HCl/Atropine (Lomotil 0.025-2.5 Mg) 1 tab PO Q4H PRN PRN Reason: Diarrhea Last Admin: 08/05/18 20:46 Dose: 1 tab Divalproex Sodium (Divalproex Sodium) 250 mg PO BIDMEALS [facility] Last Admin: 08/09/18 07:40 Dose: 250 mg Duloxetine HCl (Cymbalta) 30 mg PO DAILY [facility] Last Admin: 08/02/18 07:59 Dose: 30 mg Gabapentin (Neurontin) 400 mg PO TID [facility] Last Admin: 07/29/18 10:03 Dose: Not Given Gabapentin (Neurontin) 200 mg PO TID [facility] Last Admin: 08/01/18 13:21 Dose: 200 mg Haloperidol Lactate (Haldol) 2 mg IVPUSH Q4H PRN PRN Reason: Agitation Last Admin: 07/28/18 01:45 Dose: 2 mg Haloperidol Lactate (Haldol) 5 mg IM ONETIME [facility] Stop: 07/30/18 06:02 Last Admin: 07/30/18 06:16 Dose: 5 mg Hydromorphone HCl (Dilaudid) 0.5 mg IVPUSH Q2H PRN PRN Reason: Headache Last Admin: 08/03/18 01:19 Dose: 0.5 mg Multivitamins/Minerals 10 ml/Thiamine HCl 100 mg/ Folic Acid 1 mg/ Magnesium Sulfate 3 gm/ Sodium Chloride 1,017.2 mls @ 1,000 mls/hr IV ASDIRECTED [facility] Multivitamins/Minerals 10 ml/Thiamine HCl 100 mg/ Folic Acid 1 mg/ Magnesium Sulfate 3 gm/ Sodium Chloride 1,017.2 mls @ 500 mls/hr IV ASDIRECTED ONE Stop: 07/24/18 19:02 Last Admin: 07/24/18 17:03 Dose: 500 mls/hr Dextrose/Sodium Chloride (Dextrose 5%-Normal Saline) 1,000 mls @ 125 mls/hr IV ASDIRECTED [facility] Last Admin: 07/26/18 10:23 Dose: 125 mls/hr Potassium Chloride 20 meq/Lidocaine HCl 2 ml/ Sodium Chloride 112 mls @ 50 mls/ hr IV Q2H [facility] Stop: 07/24/18 22:03 Last Admin: 07/24/18 22:00 Dose: 50 mls/hr Potassium Chloride (Kcl 20 Meq In Water 100 Ml) Confirm Administered Dose 200 mls @ as directed .ROUTE .STK-MED ONE Stop: 07/24/18 19:43 Last Admin: 07/24/18 19:49 Dose: Not Given Potassium Chloride 20 meq/ (Premix) 0 mls @ 50 mls/hr IV ONETIME ONE Stop: 07/25/18 06:00 Last Admin: 07/25/18 10:06 Dose: Not Given Potassium Chloride (Kcl 20 Meq In Water 100 Ml) 100 mls @ 50 mls/hr IV Q2H [facility] Stop: 07/25/18 10:59 Last Admin: 07/25/18 09:02 Dose: 50 mls/hr Potassium Chloride 20 meq/Lidocaine HCl 2 ml/ Sodium Chloride 112 mls @ 50 mls/ hr IV Q2H [facility] Stop: 07/25/18 18:29 Last Admin: 07/25/18 17:11 Dose: 50 mls/hr Potassium Chloride 20 meq/Lidocaine HCl 2 ml/ Sodium Chloride 112 mls @ 56 mls/ hr IV Q2H [facility] Stop: 07/26/18 13:29 Last Admin: 07/26/18 12:31 Dose: 56 mls/hr Potassium Chloride/Dextrose/Sod Cl (D5 1/2 Ns W/ 20 Meq/L Kcl) 1,000 mls @ 75 mls/hr IV ASDIRECTED [facility] Last Admin: 07/27/18 03:56 Dose: 75 mls/hr Potassium Chloride/Dextrose/Sod Cl (D5 1/2 Ns W/ 20 Meq/L Kcl) 1,000 mls @ 50 mls/hr IV ASDIRECTED [facility] Last Admin: 07/29/18 18:36 Dose: 50 mls/hr Potassium Chloride 20 meq/Lidocaine HCl 2 ml/ Sodium Chloride 112 mls @ 50 mls/ hr IV Q2H [facility] Stop: 07/28/18 13:59 Last Admin: 07/28/18 12:23 Dose: 50 mls/hr Sodium Chloride (Normal Saline) 500 mls @ 500 mls/hr IV .BOLUS ONE Stop: 07/28/18 19:36 Last Admin: 07/28/18 18:40 Dose: 500 mls/hr Potassium Chloride 20 meq/ (Premix) 100 mls @ 50 mls/hr IV Q2H [facility] Stop: 07/31/18 08:00 Last Admin: 07/31/18 06:35 Dose: 50 mls/hr Potassium Chloride 20 meq/Lidocaine HCl 2 ml/ Sodium Chloride 112 mls @ 56 mls/ hr IV ONETIME ONE Stop: 07/31/18 10:29 Last Admin: 07/31/18 08:27 Dose: 56 mls/hr Sodium Chloride (Normal Saline) 1,000 mls @ 125 mls/hr IV ASDIRECTED [facility] Last Admin: 08/01/18 03:23 Dose: 125 mls/hr Ampicillin Sodium/Sulbactam (Sodium 1.5 gm/ Sodium Chloride) 50 mls @ 100 mls/ hr IV Q6H [facility] Last Admin: 08/07/18 04:32 Dose: 100 mls/hr Ibuprofen (Motrin) 600 mg PO Q6H PRN PRN Reason: Pain/Fever Last Admin: 08/03/18 03:03 Dose: 600 mg Ketorolac Tromethamine (Toradol) 30 mg IVPUSH Q6H PRN PRN Reason: Pain Stop: 08/08/18 08:36 Last Admin: 08/03/18 19:52 Dose: 30 mg Lidocaine HCl (Xylocaine-Mpf 1%) 2 ml INJECT ONETIME ONE Stop: 07/25/18 06:02 Last Admin: 07/25/18 06:32 Dose: 2 ml Lidocaine HCl (Xylocaine-Mpf 1%) 2 ml INJECT ONETIME ONE Stop: 07/31/18 05:56 Last Admin: 07/31/18 06:41 Dose: 2 ml Loperamide HCl (Imodium) 2 mg PO Q4H PRN PRN Reason: Diarrhea Last Admin: 07/31/18 10:17 Dose: 2 mg Lorazepam (Ativan) 0 mg PO ASDIRECTED [facility]USS; Protocol Last Admin: 07/29/18 15:46 Dose: 1 mg Lorazepam (Ativan) 0 mg IV ASDIRECTED [facility]; Protocol Last Admin: 07/28/18 08:13 Dose: 2 mg Lorazepam (Ativan) 2 mg IVPUSH ASDIRECTED PRN PRN Reason: Seizures Last Admin: 07/28/18 09:00 Dose: 2 mg Lorazepam (Ativan) 1 mg PO ONETIME ONE Stop: 08/03/18 22:34 Last Admin: 08/03/18 22:51 Dose: 1 mg Nicotine (Habitrol) 14 mg TRDERM DAILY [facility] Last Admin: 08/09/18 08:20 Dose: Not Given Pantoprazole Sodium (Protonix Iv) 40 mg IV DAILY [facility] Last Admin: 07/24/18 19:52 Dose: 40 mg Pantoprazole Sodium (Protonix Iv) 40 mg IV Q24H [facility] Last Admin: 07/26/18 16:11 Dose: 40 mg Potassium Chloride (Klor-Con M20) 40 meq PO ONETIME ONE Stop: 07/31/18 06:01 Last Admin: 07/31/18 06:31 Dose: 40 meq Potassium Chloride (Klor-Con M20) 40 meq PO ONETIME ONE Stop: 07/31/18 12:01 Last Admin: 07/31/18 11:58 Dose: 40 meq Potassium Chloride (Klor-Con M20) 40 meq PO ONETIME ONE Stop: 08/01/18 09:01 Last Admin: 08/01/18 08:22 Dose: 40 meq Potassium Chloride (Klor-Con M20) 40 meq PO ONETIME ONE Stop: 08/01/18 12:01 Last Admin: 08/01/18 11:18 Dose: 40 meq Potassium Chloride (Klor-Con M20) 40 meq PO ONETIME ONE Stop: 08/01/18 17:01 Last Admin: 08/01/18 17:03 Dose: 40 meq Potassium Chloride (Klor-Con M20) 40 meq PO ONETIME ONE Stop: 08/03/18 09:01 Last Admin: 08/03/18 09:57 Dose: 40 meq Potassium Chloride (Klor-Con M20) 40 meq PO ONETIME ONE Stop: 08/03/18 17:01 Last Admin: 08/03/18 16:22 Dose: 40 meq Potassium Chloride (Klor-Con M20) 40 meq PO ONETIME ONE Stop: 08/05/18 11:31 Last Admin: 08/05/18 11:24 Dose: 40 meq Potassium Chloride (Klor-Con M20) 40 meq PO ONETIME ONE Stop: 08/05/18 17:01 Last Admin: 08/05/18 16:49 Dose: 40 meq Potassium Chloride (Klor-Con M20) 40 meq PO BID [facility] Stop: 08/07/18 21:01 Last Admin: 08/07/18 20:55 Dose: 40 meq Potassium Chloride (Klor-Con M20) 40 meq PO ONETIME ONE Stop: 08/08/18 09:01 Last Admin: 08/08/18 09:59 Dose: 40 meq Potassium Chloride (Klor-Con M20) 40 meq PO ONETIME ONE Stop: 08/10/18 06:59 Last Admin: 08/10/18 07:10 Dose: 40 meq Potassium Chloride (Klor-Con M20) 40 meq PO TID [facility] Last Admin: 08/12/18 08:16 Dose: 40 meq Vancomycin HCl (Vancocin 250 Mg/5 Ml Soln) 250 mg PO Q6HR [facility] Last Admin: 08/06/18 10:58 Dose: 250 mg - Exam Quality Assessment: No: Supplemental Oxygen General: Alert, Oriented, Cooperative, No Acute Distress HEENT: Scleral Icterus Lungs: Normal Respiratory Effort GI/Abdominal Exam: Soft, No Distention Extremities: Pedal Edema (Trace ankle edema) Skin: Other (Jaundice) Psy/Mental Status: Alert, Hallucinations. No: Agitated - Problem List & Annotations (1) Alcoholic hepatitis without ascites SNOMED Code(s): 929490713 Code(s): K70.10 - ALCOHOLIC HEPATITIS WITHOUT ASCITES Status: Resolved Current Visit: No (2) Alcohol abuse SNOMED Code(s): 35513070 Code(s): F10.10 - ALCOHOL ABUSE, UNCOMPLICATED Status: Acute Current Visit: Yes (3) Hypokalemia SNOMED Code(s): 48997141 Code(s): E87.6 - HYPOKALEMIA Status: Resolved Current Visit: No (4) Tobacco dependence SNOMED Code(s): 99956646 Code(s): F17.200 - NICOTINE DEPENDENCE, UNSPECIFIED, UNCOMPLICATED Status: Chronic Current Visit: Yes - Problem List Review Problem List Initiated/Reviewed/Updated: Yes - My Orders Last 24 Hours: My Active Orders 08/12/18 09:00 Potassium Chloride [Klor-Con M20] 40 meq PO DAILY 08/13/18 05:00 CBC W/O DIFF,HEMOGRAM [HEME] Timed (1) COMPREHENSIVE METABOLIC PN,CMP [CHEM] Timed - Plan Plan:: ASSESSMENT AND PLAN - Alcoholic hepatitis/cirrhosis - bilirubin remains elevated and is stable compared to yesterday. Still hallucinating and I suspect this is related to steroids since the hallucinations started shortly after steroids were initiated. Benefits of continuing seem to outweigh the risk with only hallucinations present at this time. -Saline lock IV -Continue prednisolone 40 mg daily -Seroquel twice daily to help with hallucinations and agitation -Repeat liver labs in the morning -Symptomatic management for pain or nausea Acute acalculous cholecystitis, suspected - ultrasound showed distended gallbladder with sludge and mild wall thickening. Patient is asymptomatic. HIDA did not help evaluate gallbladder function because of diffuse hepatocellular disease. -Stopping antibiotics today -Consider outpatient surgical follow-up unless symptoms develop Clostridium difficile colitis - diarrhea slowly improving. Tolerating oral vancomycin so far. -Continue vancomycin for total of 2 weeks (treatment through August 18) -contact precautions until diarrhea resolves Alcohol abuse - alcohol withdrawal has resolved. Petition for commitment completed and next hearing is August 14. -Melatonin at bedtime -Currently on a court hold pending commitment Severe anxiety -Citalopram 20 mg by mouth daily -Seroquel twice daily Hypokalemia - potassium level improved with supplementation. -Potassium supplementation daily -Recheck again in the morning Tobacco dependence - no interest in quitting at this time. Current cigarette allowance is 3 per day. -Nicotine patch Maintenance issues - - DVT prophylaxis - mechanical - GI prophylaxis - PPI - Nutrition - regular diet Disposition - I would anticipate discharge to inpatient alcohol treatment after the hospital stay if he survives his severe alcoholic hepatitis Kiran Sharma M.D.
[2018-08-12] MEDS: Melatonin 3 MG Tab PO SCH (21:12)
[2018-08-13] MEDS: Vancomycin 250 MG/5 ML ML Oral Solution PO SCH ×4 (04:15→21:40)
[2018-08-13] MEDS: prednisoLONE 15 MG/5 ML Soln UD Cup PO SCH ×2 (07:24→09:05)
[2018-08-13] MEDS: Lactobacillus Rhamnosus GG (Probiotic) Cap PO SCH ×3 (07:24→21:40)
[2018-08-13] MEDS: Potassium Chloride 20 MEQ Tab.ER PO SCH ×2 (07:24→09:05)
[2018-08-13] MEDS: Citalopram 20 MG Tab PO SCH ×2 (07:24→09:05)
[2018-08-13] MEDS: Thiamine 100 MG Tab PO SCH ×2 (07:25→09:06)
[2018-08-13] MEDS: QUEtiapine 25 MG Tab PO SCH ×3 (07:25→21:40)
[2018-08-13] MEDS: Folic Acid 1 MG Tab PO SCH ×2 (07:25→09:05)
[2018-08-13] MEDS: DULoxetine 30 MG Cap PO SCH ×3 (07:25→21:40)
[2018-08-13] MEDS: Pantoprazole 40 MG Tab.CR PO SCH (07:25)
[2018-08-13] MEDS ORDERED: Potassium Chloride 20 MEQ Tab.ER PO ONE ×3 (08:31→17:00)
--- NOTE | 2018-08-13 09:37 | PCM.PN ---
- General Info Date of Service: 08/13/18 Subjective Update: Mr. Knowles has been stable since yesterday, diarrhea continues to slowly improve , appetite is very good. Bilirubin level has shown further improvement since yesterday with steroid therapy. Functional Status: Reports: Tolerating Diet, Ambulating, Urinating - Review of Systems General: Denies: Fever, Chills Pulmonary: Reports: No Symptoms Cardiovascular: Reports: No Symptoms Gastrointestinal: Reports: Diarrhea. Denies: Abdominal Pain, Difficulty Swallowing, Hematochezia, Melena, Nausea, Vomiting - Patient Data Vitals - Most Recent: Last Vital Signs Temp 99.1 F 08/13/18 07:00 Pulse 87 08/13/18 07:00 Resp 20 08/13/18 07:00 BP 122/71 08/13/18 07:00 Pulse Ox 99 08/13/18 07:00 Orthostatic Blood Pressure [ 107/48 Standing] Orthostatic Blood Pressure [ 107/73 Sitting] Orthostatic Blood Pressure [ 121/83 Supine] Weight - Most Recent: 157 lb 8 oz I&O - Last 24 Hours: Intake & Output 08/12/18 08/13/18 08/13/18 22:59 06:59 14:59 Intake Total 1999 240 Balance 1999 240 Lab Results Last 24 Hours: Laboratory Results - last 24 hr 08/13/18 08/13/18 Range/Units 04:10 04:10 WBC 12.1 H (4.5-11.0) K/uL RBC 3.01 L (4.30-5.90) M/uL Hgb 9.6 L (12.0-15.0) g/dL Hct 29.3 L (40.0-54.0) % MCV 97 (80-98) fL MCH 32 H (27-31) pg MCHC 33 (32-36) % Plt Count 182 (150-400) K/uL Sodium 139 L (140-148) mmol/L Potassium 3.2 L (3.6-5.2) mmol/L Chloride 103 (100-108) mmol/L Carbon Dioxide 30 (21-32) mmol/L Anion Gap 9.2 (5.0-14.0) mmol/L BUN 9 (7-18) mg/dL Creatinine 0.6 L (0.8-1.3) mg/dL Est Cr Clr Drug Dosing 173.64 mL/min Estimated GFR (MDRD) > 60 (>60) Glucose 94 (74-106) mg/dL Calcium 8.8 (8.5-10.1) mg/dL Total Bilirubin 17.8 H (0.2-1.0) mg/dL AST 106 H (15-37) U/L ALT 187 H (12-78) U/L Alkaline Phosphatase 310 H (46-116) U/L Total Protein 5.3 L (6.4-8.2) g/dL Albumin 1.7 L (3.4-5.0) g/dL Globulin 3.6 H (2.3-3.5) g/dL Albumin/Globulin Ratio 0.5 L (1.2-2.2) Med Orders - Current: Current Medications Citalopram Hydrobromide (Celexa) 20 mg PO DAILY [facility] Last Admin: 08/13/18 09:05 Dose: Not Given Duloxetine HCl (Cymbalta) 30 mg PO BID [facility] Last Admin: 08/13/18 09:05 Dose: Not Given Folic Acid (Folic Acid) 1 mg PO DAILY [facility] Last Admin: 08/13/18 09:05 Dose: Not Given Lactobacillus Rhamnosus (Culturelle) 1 cap PO BID [facility] Last Admin: 08/13/18 09:05 Dose: Not Given Magnesium Hydroxide (Milk Of Magnesia) 30 ml PO Q12H PRN PRN Reason: Constipation Melatonin (Melatonin) 9 mg PO BEDTIME [facility] Last Admin: 08/12/18 21:12 Dose: 9 mg Nicotine (Habitrol) 14 mg TRDERM DAILY PRN PRN Reason: nicotine craving Last Admin: 08/12/18 08:15 Dose: 14 mg Ondansetron HCl (Zofran Odt) 4 mg PO Q6H PRN PRN Reason: Nausea able to take PO Last Admin: 08/02/18 15:15 Dose: 4 mg Ondansetron HCl (Zofran) 4 mg IV Q6H PRN PRN Reason: Nausea/Vomiting Pantoprazole Sodium (Protonix) 40 mg PO ACBREAKFAST [facility] Last Admin: 08/13/18 07:25 Dose: 40 mg Potassium Chloride (Klor-Con M20) 40 meq PO DAILY [facility] Last Admin: 08/13/18 09:05 Dose: Not Given Potassium Chloride (Klor-Con M20) 40 meq PO ONETIME ONE Stop: 08/13/18 12:01 Potassium Chloride (Klor-Con M20) 40 meq PO ONETIME ONE Stop: 08/13/18 17:01 Prednisolone (Orapred 15 Mg/5ml Soln) 40 mg PO DAILY [facility] Last Admin: 08/13/18 09:05 Dose: Not Given Quetiapine Fumarate (Seroquel) 25 mg PO BID [facility] Last Admin: 08/13/18 09:05 Dose: Not Given Senna/Docusate Sodium (Senna Plus) 1 tab PO BID PRN PRN Reason: Constipation Thiamine HCl (Vitamin B-1) 100 mg PO DAILY [facility] Last Admin: 08/13/18 09:06 Dose: Not Given Vancomycin HCl (Vancocin 250 Mg/5 Ml Soln) 125 mg PO Q6HR [facility] Stop: 08/18/18 22:30 Last Admin: 08/13/18 04:15 Dose: 125 mg Discontinued Medications Amoxicillin/Clavulanate Potassium (Augmentin 875 Mg/125 Mg) 1 tab PO Q12H [facility] Last Admin: 08/12/18 08:16 Dose: 1 tab Diphenoxylate HCl/Atropine (Lomotil 0.025-2.5 Mg) 1 tab PO Q4H PRN PRN Reason: Diarrhea Last Admin: 08/05/18 20:46 Dose: 1 tab Divalproex Sodium (Divalproex Sodium) 250 mg PO BIDMEALS [facility] Last Admin: 08/09/18 07:40 Dose: 250 mg Duloxetine HCl (Cymbalta) 30 mg PO DAILY [facility] Last Admin: 08/02/18 07:59 Dose: 30 mg Gabapentin (Neurontin) 400 mg PO TID [facility] Last Admin: 07/29/18 10:03 Dose: Not Given Gabapentin (Neurontin) 200 mg PO TID [facility] Last Admin: 08/01/18 13:21 Dose: 200 mg Haloperidol Lactate (Haldol) 2 mg IVPUSH Q4H PRN PRN Reason: Agitation Last Admin: 07/28/18 01:45 Dose: 2 mg Haloperidol Lactate (Haldol) 5 mg IM ONETIME STA Stop: 07/30/18 06:02 Last Admin: 07/30/18 06:16 Dose: 5 mg Hydromorphone HCl (Dilaudid) 0.5 mg IVPUSH Q2H PRN PRN Reason: Headache Last Admin: 08/03/18 01:19 Dose: 0.5 mg Multivitamins/Minerals 10 ml/Thiamine HCl 100 mg/ Folic Acid 1 mg/ Magnesium Sulfate 3 gm/ Sodium Chloride 1,017.2 mls @ 1,000 mls/hr IV ASDIRECTED [facility] Multivitamins/Minerals 10 ml/Thiamine HCl 100 mg/ Folic Acid 1 mg/ Magnesium Sulfate 3 gm/ Sodium Chloride 1,017.2 mls @ 500 mls/hr IV ASDIRECTED ONE Stop: 07/24/18 19:02 Last Admin: 07/24/18 17:03 Dose: 500 mls/hr Dextrose/Sodium Chloride (Dextrose 5%-Normal Saline) 1,000 mls @ 125 mls/hr IV ASDIRECTED [facility] Last Admin: 07/26/18 10:23 Dose: 125 mls/hr Potassium Chloride 20 meq/Lidocaine HCl 2 ml/ Sodium Chloride 112 mls @ 50 mls/ hr IV Q2H [facility] Stop: 07/24/18 22:03 Last Admin: 07/24/18 22:00 Dose: 50 mls/hr Potassium Chloride (Kcl 20 Meq In Water 100 Ml) Confirm Administered Dose 200 mls @ as directed .ROUTE .STK-MED ONE Stop: 07/24/18 19:43 Last Admin: 07/24/18 19:49 Dose: Not Given Potassium Chloride 20 meq/ (Premix) 0 mls @ 50 mls/hr IV ONETIME ONE Stop: 07/25/18 06:00 Last Admin: 07/25/18 10:06 Dose: Not Given Potassium Chloride (Kcl 20 Meq In Water 100 Ml) 100 mls @ 50 mls/hr IV Q2H [facility] Stop: 07/25/18 10:59 Last Admin: 07/25/18 09:02 Dose: 50 mls/hr Potassium Chloride 20 meq/Lidocaine HCl 2 ml/ Sodium Chloride 112 mls @ 50 mls/ hr IV Q2H [facility] Stop: 07/25/18 18:29 Last Admin: 07/25/18 17:11 Dose: 50 mls/hr Potassium Chloride 20 meq/Lidocaine HCl 2 ml/ Sodium Chloride 112 mls @ 56 mls/ hr IV Q2H [facility] Stop: 07/26/18 13:29 Last Admin: 07/26/18 12:31 Dose: 56 mls/hr Potassium Chloride/Dextrose/Sod Cl (D5 1/2 Ns W/ 20 Meq/L Kcl) 1,000 mls @ 75 mls/hr IV ASDIRECTED [facility] Last Admin: 07/27/18 03:56 Dose: 75 mls/hr Potassium Chloride/Dextrose/Sod Cl (D5 1/2 Ns W/ 20 Meq/L Kcl) 1,000 mls @ [facility]ls[facility] Last Admin: 07/29/18 18:36 Dose: 50 mls/hr Potassium Chloride 20 meq/Lidocaine HCl 2 ml/ Sodium Chloride 112 mls @ 50 mls/ hr IV Q2H [facility] Stop: 07/28/18 13:59 Last Admin: 07/28/18 12:23 Dose: 50 mls/hr Sodium Chloride (Normal Saline) 500 mls @ 500 mls/hr IV .BOLUS ONE Stop: 07/28/18 19:36 Last Admin: 07/28/18 18:40 Dose: 500 mls/hr Potassium Chloride 20 meq/ (Premix) 100 mls @ 50 mls/hr IV Q2H [facility] Stop: 07/31/18 08:00 Last Admin: 07/31/18 06:35 Dose: 50 mls/hr Potassium Chloride 20 meq/Lidocaine HCl 2 ml/ Sodium Chloride 112 mls @ 56 mls/ hr IV ONETIME ONE Stop: 07/31/18 10:29 Last Admin: 07/31/18 08:27 Dose: 56 mls/hr Sodium Chloride (Normal Saline) 1,000 mls @ 125 [facility]ls[facility] Last Admin: 08/01/18 03:23 Dose: 125 mls/hr Ampicillin Sodium/Sulbactam (Sodium 1.5 gm/ Sodium Chloride) 50 mls @ 100 mls/ hr IV Q6H [facility] Last Admin: 08/07/18 04:32 Dose: 100 mls/hr Ibuprofen (Motrin) 600 mg PO Q6H PRN PRN Reason: Pain/Fever Last Admin: 08/03/18 03:03 Dose: 600 mg Ketorolac Tromethamine (Toradol) 30 mg IVPUSH Q6H PRN PRN Reason: Pain Stop: 08/08/18 08:36 Last Admin: 08/03/18 19:52 Dose: 30 mg Lidocaine HCl (Xylocaine-Mpf 1%) 2 ml INJECT ONETIME ONE Stop: 07/25/18 06:02 Last Admin: 07/25/18 06:32 Dose: 2 ml Lidocaine HCl (Xylocaine-Mpf 1%) 2 ml INJECT ONETIME ONE Stop: 07/31/18 05:56 Last Admin: 07/31/18 06:41 Dose: 2 ml Loperamide HCl (Imodium) 2 mg PO Q4H PRN PRN Reason: Diarrhea Last Admin: 07/31/18 10:17 Dose: 2 mg Lorazepam (Ativan) 0 mg PO ASDIRECTED [facility]; Protocol Last Admin: 07/29/18 15:46 Dose: 1 mg Lorazepam (Ativan) 0 mg IV ASDIRECTED [facility]; Protocol Last Admin: 07/28/18 08:13 Dose: 2 mg Lorazepam (Ativan) 2 mg IVPUSH ASDIRECTED PRN PRN Reason: Seizures Last Admin: 07/28/18 09:00 Dose: 2 mg Lorazepam (Ativan) 1 mg PO ONETIME ONE Stop: 08/03/18 22:34 Last Admin: 08/03/18 22:51 Dose: 1 mg Nicotine (Habitrol) 14 mg TRDERM DAILY [facility] Last Admin: 08/09/18 08:20 Dose: Not Given Pantoprazole Sodium (Protonix Iv) 40 mg IV DAILY [facility] Last Admin: 07/24/18 19:52 Dose: 40 mg Pantoprazole Sodium (Protonix Iv) 40 mg IV Q24H [facility] Last Admin: 07/26/18 16:11 Dose: 40 mg Potassium Chloride (Klor-Con M20) 40 meq PO ONETIME ONE Stop: 07/31/18 06:01 Last Admin: 07/31/18 06:31 Dose: 40 meq Potassium Chloride (Klor-Con M20) 40 meq PO ONETIME ONE Stop: 07/31/18 12:01 Last Admin: 07/31/18 11:58 Dose: 40 meq Potassium Chloride (Klor-Con M20) 40 meq PO ONETIME ONE Stop: 08/01/18 09:01 Last Admin: 08/01/18 08:22 Dose: 40 meq Potassium Chloride (Klor-Con M20) 40 meq PO ONETIME ONE Stop: 08/01/18 12:01 Last Admin: 08/01/18 11:18 Dose: 40 meq Potassium Chloride (Klor-Con M20) 40 meq PO ONETIME ONE Stop: 08/01/18 17:01 Last Admin: 08/01/18 17:03 Dose: 40 meq Potassium Chloride (Klor-Con M20) 40 meq PO ONETIME ONE Stop: 08/03/18 09:01 Last Admin: 08/03/18 09:57 Dose: 40 meq Potassium Chloride (Klor-Con M20) 40 meq PO ONETIME ONE Stop: 08/03/18 17:01 Last Admin: 08/03/18 16:22 Dose: 40 meq Potassium Chloride (Klor-Con M20) 40 meq PO ONETIME ONE Stop: 08/05/18 11:31 Last Admin: 08/05/18 11:24 Dose: 40 meq Potassium Chloride (Klor-Con M20) 40 meq PO ONETIME ONE Stop: 08/05/18 17:01 Last Admin: 08/05/18 16:49 Dose: 40 meq Potassium Chloride (Klor-Con M20) 40 meq PO BID [facility] Stop: 08/07/18 21:01 Last Admin: 08/07/18 20:55 Dose: 40 meq Potassium Chloride (Klor-Con M20) 40 meq PO ONETIME ONE Stop: 08/08/18 09:01 Last Admin: 08/08/18 09:59 Dose: 40 meq Potassium Chloride (Klor-Con M20) 40 meq PO ONETIME ONE Stop: 08/10/18 06:59 Last Admin: 08/10/18 07:10 Dose: 40 meq Potassium Chloride (Klor-Con M20) 40 meq PO TID [facility] Last Admin: 08/12/18 08:16 Dose: 40 meq Potassium Chloride (Klor-Con M20) 40 meq PO ONETIME ONE Stop: 08/13/18 08:32 Last Admin: 08/13/18 08:44 Dose: 40 meq Vancomycin HCl (Vancocin 250 Mg/5 Ml Soln) 250 mg PO Q6HR [facility] Last Admin: 08/06/18 10:58 Dose: 250 mg - Exam General: Alert, Oriented, Cooperative, Mild Distress Lungs: Clear to Auscultation, Normal Respiratory Effort Cardiovascular: Regular Rate, Regular Rhythm, No Murmurs GI/Abdominal Exam: Soft, Non-Tender, No Organomegaly, No Distention Extremities: Non-Tender, No Pedal Edema - Problem List Review Problem List Initiated/Reviewed/Updated: Yes - My Orders Last 24 Hours: My Active Orders 08/13/18 12:00 Potassium Chloride [Klor-Con M20] 40 meq PO ONETIME ONE 08/13/18 17:00 Potassium Chloride [Klor-Con M20] 40 meq PO ONETIME ONE 08/14/18 05:00 CBC WITH AUTO DIFF [HEME] Timed COMPREHENSIVE METABOLIC PN,CMP [CHEM] Timed - Plan Plan:: ASSESSMENT AND PLAN - Alcoholic hepatitis/cirrhosis - bilirubin remains elevated and is stable compared to yesterday. Still hallucinating and I suspect this is related to steroids since the hallucinations started shortly after steroids were initiated. Benefits of continuing seem to outweigh the risk with only hallucinations present at this time. -Continue prednisolone 40 mg daily -Seroquel twice daily to help with hallucinations and agitation -Repeat liver labs in the morning -Symptomatic management for pain or nausea Acute acalculous cholecystitis, suspected - ultrasound showed distended gallbladder with sludge and mild wall thickening. Patient is asymptomatic. HIDA did not help evaluate gallbladder function because of diffuse hepatocellular disease. -Antibiotic therapy discontinued yesterday -Consider outpatient surgical follow-up unless symptoms develop Clostridium difficile colitis - diarrhea slowly improving. Tolerating oral vancomycin so far. -Continue vancomycin for total of 2 weeks (treatment through August 18) -contact precautions until diarrhea resolves Alcohol abuse - alcohol withdrawal has resolved. Petition for commitment completed and next hearing is August 14. -Melatonin at bedtime -Currently on a court hold pending commitment Severe anxiety -Citalopram 20 mg by mouth daily -Seroquel twice daily Hypokalemia - potassium level improved with supplementation. -Potassium supplementation daily -Recheck again in the morning Tobacco dependence - no interest in quitting at this time. Current cigarette allowance is 3 per day. -Nicotine patch Maintenance issues - - DVT prophylaxis - mechanical - GI prophylaxis - PPI - Nutrition - regular diet Disposition - I would anticipate discharge to inpatient alcohol treatment after the hospital stay if he survives his severe alcoholic hepatitis
[2018-08-13] MEDS: Melatonin 3 MG Tab PO SCH (21:40)
[2018-08-14] MEDS: Vancomycin 250 MG/5 ML ML Oral Solution PO SCH ×4 (03:21→21:48)
[2018-08-14] MEDS: Citalopram 20 MG Tab PO SCH (08:41)
[2018-08-14] MEDS: Pantoprazole 40 MG Tab.CR PO SCH (08:41)
[2018-08-14] MEDS: Lactobacillus Rhamnosus GG (Probiotic) Cap PO SCH ×2 (08:42→21:48)
[2018-08-14] MEDS: Folic Acid 1 MG Tab PO SCH (08:42)
[2018-08-14] MEDS: DULoxetine 30 MG Cap PO SCH ×2 (08:42→21:48)
[2018-08-14] MEDS: Potassium Chloride 20 MEQ Tab.ER PO SCH (08:43)
[2018-08-14] MEDS: prednisoLONE 15 MG/5 ML Soln UD Cup PO SCH (08:43)
[2018-08-14] MEDS: QUEtiapine 25 MG Tab PO SCH ×2 (08:44→21:48)
[2018-08-14] MEDS: Thiamine 100 MG Tab PO SCH (08:44)
--- NOTE | 2018-08-14 10:32 | PCM.PN ---
- General Info Date of Service: 08/14/18 Subjective Update: Mr. Knowles is experienced difficulty with agitation and behaviors over the last 24 hours. He has left the facility 3 times and each time has returned with law enforcement. There is been further improvement in bilirubin level. Overall strength and appetite have been good, albumin level improving. White blood cell count elevated but likely secondary to current glucocorticoid therapy. Functional Status: Reports: Tolerating Diet, Ambulating, Urinating - Review of Systems General: Denies: Fever, Weakness, Chills Pulmonary: Reports: No Symptoms Cardiovascular: Reports: No Symptoms Gastrointestinal: Reports: No Symptoms - Patient Data Vitals - Most Recent: Last Vital Signs Temp 98.6 F 08/13/18 21:54 Pulse 80 08/13/18 21:54 Resp 17 08/13/18 21:54 BP 121/85 08/13/18 21:54 Pulse Ox 99 08/13/18 21:54 Orthostatic Blood Pressure [ 107/48 Standing] Orthostatic Blood Pressure [ 107/73 Sitting] Orthostatic Blood Pressure [ 121/83 Supine] Weight - Most Recent: 157 lb 8 oz Lab Results Last 24 Hours: Laboratory Results - last 24 hr 08/14/18 08/14/18 Range/Units 04:10 04:10 WBC 15.3 H (4.5-11.0) K/uL RBC 3.34 L (4.30-5.90) M/uL Hgb 10.7 L (12.0-15.0) g/dL Hct 33.0 L (40.0-54.0) % MCV 99 H (80-98) fL MCH 32 H (27-31) pg MCHC 32 (32-36) % Plt Count 220 (150-400) K/uL Neut % (Auto) It Consulting Director Lymph % (Auto) It Consulting Director Camp % (Auto) It Consulting Director Eos % (Auto) It Consulting Director Baso % (Auto) It Consulting Director Add Manual Diff Yes Neutrophils % (Manual) 58 (36-66) % Band Neutrophils % 5 (5-11) % Lymphocytes % (Manual) 13 L (24-44) % Monocytes % (Manual) 23 H (2-6) % Eosinophils % (Manual) 1 L (2-4) % Anisocytosis Marked H Target Cells Moderate H Sodium 138 L (140-148) mmol/L Potassium 3.7 (3.6-5.2) mmol/L Chloride 101 (100-108) mmol/L Carbon Dioxide 29 (21-32) mmol/L Anion Gap 11.7 (5.0-14.0) mmol/L BUN 9 (7-18) mg/dL Creatinine 0.7 L (0.8-1.3) mg/dL Est Cr Clr Drug Dosing 148.83 mL/min Estimated GFR (MDRD) > 60 (>60) Glucose 86 (74-106) mg/dL Calcium 9.1 (8.5-10.1) mg/dL Total Bilirubin 16.7 H (0.2-1.0) mg/dL AST 111 H (15-37) U/L ALT 211 H (12-78) U/L Alkaline Phosphatase 343 H (46-116) U/L Total Protein 6.3 L (6.4-8.2) g/dL Albumin 2.1 L (3.4-5.0) g/dL Globulin 4.2 H (2.3-3.5) g/dL Albumin/Globulin Ratio 0.5 L (1.2-2.2) Med Orders - Current: Current Medications Citalopram Hydrobromide (Celexa) 20 mg PO DAILY [facility] Last Admin: 08/14/18 08:41 Dose: 20 mg Duloxetine HCl (Cymbalta) 30 mg PO BID [facility] Last Admin: 08/14/18 08:42 Dose: 30 mg Folic Acid (Folic Acid) 1 mg PO DAILY [facility] Last Admin: 08/14/18 08:42 Dose: 1 mg Lactobacillus Rhamnosus (Culturelle) 1 cap PO BID [facility] Last Admin: 08/14/18 08:42 Dose: 1 cap Magnesium Hydroxide (Milk Of Magnesia) 30 ml PO Q12H PRN PRN Reason: Constipation Melatonin (Melatonin) 9 mg PO BEDTIME [facility] Last Admin: 08/13/18 21:40 Dose: 9 mg Nicotine (Habitrol) 14 mg TRDERM DAILY PRN PRN Reason: nicotine craving Last Admin: 08/12/18 08:15 Dose: 14 mg Ondansetron HCl (Zofran Odt) 4 mg PO Q6H PRN PRN Reason: Nausea able to take PO Last Admin: 08/02/18 15:15 Dose: 4 mg Ondansetron HCl (Zofran) 4 mg IV Q6H PRN PRN Reason: Nausea/Vomiting Pantoprazole Sodium (Protonix) 40 mg PO ACBREAKFAST [facility] Last Admin: 08/14/18 08:41 Dose: 40 mg Potassium Chloride (Klor-Con M20) 40 meq PO DAILY [facility] Last Admin: 08/14/18 08:43 Dose: 40 meq Prednisolone (Orapred 15 Mg/5ml Soln) 40 mg PO DAILY [facility] Last Admin: 08/14/18 08:43 Dose: 40 mg Quetiapine Fumarate (Seroquel) 25 mg PO BID [facility] Last Admin: 08/14/18 08:44 Dose: 25 mg Senna/Docusate Sodium (Senna Plus) 1 tab PO BID PRN PRN Reason: Constipation Thiamine HCl (Vitamin B-1) 100 mg PO DAILY [facility] Last Admin: 08/14/18 08:44 Dose: 100 mg Vancomycin HCl (Vancocin 250 Mg/5 Ml Soln) 125 mg PO Q6HR [facility] Stop: 08/18/18 22:30 Last Admin: 08/14/18 09:34 Dose: 125 mg Discontinued Medications Amoxicillin/Clavulanate Potassium (Augmentin 875 Mg/125 Mg) 1 tab PO Q12H [facility] Last Admin: 08/12/18 08:16 Dose: 1 tab Diphenoxylate HCl/Atropine (Lomotil 0.025-2.5 Mg) 1 tab PO Q4H PRN PRN Reason: Diarrhea Last Admin: 08/05/18 20:46 Dose: 1 tab Divalproex Sodium (Divalproex Sodium) 250 mg PO BIDMEALS [facility] Last Admin: 08/09/18 07:40 Dose: 250 mg Duloxetine HCl (Cymbalta) 30 mg PO DAILY [facility] Last Admin: 08/02/18 07:59 Dose: 30 mg Gabapentin (Neurontin) 400 mg PO TID [facility] Last Admin: 07/29/18 10:03 Dose: Not Given Gabapentin (Neurontin) 200 mg PO TID [facility] Last Admin: 08/01/18 13:21 Dose: 200 mg Haloperidol Lactate (Haldol) 2 mg IVPUSH Q4H PRN PRN Reason: Agitation Last Admin: 07/28/18 01:45 Dose: 2 mg Haloperidol Lactate (Haldol) 5 mg IM ONETIME [facility] Stop: 07/30/18 06:02 Last Admin: 07/30/18 06:16 Dose: 5 mg Hydromorphone HCl (Dilaudid) 0.5 mg IVPUSH Q2H PRN PRN Reason: Headache Last Admin: 08/03/18 01:19 Dose: 0.5 mg Multivitamins/Minerals 10 ml/Thiamine HCl 100 mg/ Folic Acid 1 mg/ Magnesium Sulfate 3 gm/ Sodium Chloride 1,017.2 mls @ 1,000 mls/hr IV ASDIRECTED [facility] Multivitamins/Minerals 10 ml/Thiamine HCl 100 mg/ Folic Acid 1 mg/ Magnesium Sulfate 3 gm/ Sodium Chloride 1,017.2 mls @ 500 mls/hr IV ASDIRECTED ONE Stop: 07/24/18 19:02 Last Admin: 07/24/18 17:03 Dose: 500 mls/hr Dextrose/Sodium Chloride (Dextrose 5%-Normal Saline) 1,000 mls @ 125 mls/hr IV ASDIRECTED [facility] Last Admin: 07/26/18 10:23 Dose: 125 mls/hr Potassium Chloride 20 meq/Lidocaine HCl 2 ml/ Sodium Chloride 112 mls @ 50 mls/ hr IV Q2H [facility] Stop: 07/24/18 22:03 Last Admin: 07/24/18 22:00 Dose: 50 mls/hr Potassium Chloride (Kcl 20 Meq In Water 100 Ml) Confirm Administered Dose 200 mls @ as directed .ROUTE .STK-MED ONE Stop: 07/24/18 19:43 Last Admin: 07/24/18 19:49 Dose: Not Given Potassium Chloride 20 meq/ (Premix) 0 mls @ 50 mls/hr IV ONETIME ONE Stop: 07/25/18 06:00 Last Admin: 07/25/18 10:06 Dose: Not Given Potassium Chloride (Kcl 20 Meq In Water 100 Ml) 100 mls @ 50 mls/hr IV Q2H [facility] Stop: 07/25/18 10:59 Last Admin: 07/25/18 09:02 Dose: 50 mls/hr Potassium Chloride 20 meq/Lidocaine HCl 2 ml/ Sodium Chloride 112 mls @ 50 mls/ hr IV Q2H [facility] Stop: 07/25/18 18:29 Last Admin: 07/25/18 17:11 Dose: 50 mls/hr Potassium Chloride 20 meq/Lidocaine HCl 2 ml/ Sodium Chloride 112 mls @ 56 mls/ hr IV Q2H [facility] Stop: 07/26/18 13:29 Last Admin: 07/26/18 12:31 Dose: 56 mls/hr Potassium Chloride/Dextrose/Sod Cl (D5 1/2 Ns W/ 20 Meq/L Kcl) 1,000 mls @ 75 mls/hr IV ASDIRECTED [facility] Last Admin: 07/27/18 03:56 Dose: 75 mls/hr Potassium Chloride/Dextrose/Sod Cl (D5 1/2 Ns W/ 20 Meq/L Kcl) 1,000 mls @ 50 mls/hr IV ASDIRECTED [facility] Last Admin: 07/29/18 18:36 Dose: 50 mls/hr Potassium Chloride 20 meq/Lidocaine HCl 2 ml/ Sodium Chloride 112 mls @ 50 mls/ hr IV Q2H [facility] Stop: 07/28/18 13:59 Last Admin: 07/28/18 12:23 Dose: 50 mls/hr Sodium Chloride (Normal Saline) 500 mls @ 500 mls/hr IV .BOLUS ONE Stop: 07/28/18 19:36 Last Admin: 07/28/18 18:40 Dose: 500 mls/hr Potassium Chloride 20 meq/ (Premix) 100 mls @ 50 mls/hr IV Q2H [facility] Stop: 07/31/18 08:00 Last Admin: 07/31/18 06:35 Dose: 50 mls/hr Potassium Chloride 20 meq/Lidocaine HCl 2 ml/ Sodium Chloride 112 mls @ 56 mls/ hr IV ONETIME ONE Stop: 07/31/18 10:29 Last Admin: 07/31/18 08:27 Dose: 56 mls/hr Sodium Chloride (Normal Saline) 1,000 mls @ 125 mls/hr IV ASDIRECTED [facility] Last Admin: 08/01/18 03:23 Dose: 125 mls/hr Ampicillin Sodium/Sulbactam (Sodium 1.5 gm/ Sodium Chloride) 50 mls @ 100 mls/ hr IV Q6H [facility] Last Admin: 08/07/18 04:32 Dose: 100 mls/hr Ibuprofen (Motrin) 600 mg PO Q6H PRN PRN Reason: Pain/Fever Last Admin: 08/03/18 03:03 Dose: 600 mg Ketorolac Tromethamine (Toradol) 30 mg IVPUSH Q6H PRN PRN Reason: Pain Stop: 08/08/18 08:36 Last Admin: 08/03/18 19:52 Dose: 30 mg Lidocaine HCl (Xylocaine-Mpf 1%) 2 ml INJECT ONETIME ONE Stop: 07/25/18 06:02 Last Admin: 07/25/18 06:32 Dose: 2 ml Lidocaine HCl (Xylocaine-Mpf 1%) 2 ml INJECT ONETIME ONE Stop: 07/31/18 05:56 Last Admin: 07/31/18 06:41 Dose: 2 ml Loperamide HCl (Imodium) 2 mg PO Q4H PRN PRN Reason: Diarrhea Last Admin: 07/31/18 10:17 Dose: 2 mg Lorazepam (Ativan) 0 mg PO ASDIRECTED [facility]; Protocol Last Admin: 07/29/18 15:46 Dose: 1 mg Lorazepam (Ativan) 0 mg IV ASDIRECTED [facility]; Protocol Last Admin: 07/28/18 08:13 Dose: 2 mg Lorazepam (Ativan) 2 mg IVPUSH ASDIRECTED PRN PRN Reason: Seizures Last Admin: 07/28/18 09:00 Dose: 2 mg Lorazepam (Ativan) 1 mg PO ONETIME ONE Stop: 08/03/18 22:34 Last Admin: 08/03/18 22:51 Dose: 1 mg Nicotine (Habitrol) 14 mg TRDERM DAILY [facility] Last Admin: 08/09/18 08:20 Dose: Not Given Pantoprazole Sodium (Protonix Iv) 40 mg IV DAILY [facility] Last Admin: 07/24/18 19:52 Dose: 40 mg Pantoprazole Sodium (Protonix Iv) 40 mg IV Q24H [facility] Last Admin: 07/26/18 16:11 Dose: 40 mg Potassium Chloride (Klor-Con M20) 40 meq PO ONETIME ONE Stop: 07/31/18 06:01 Last Admin: 07/31/18 06:31 Dose: 40 meq Potassium Chloride (Klor-Con M20) 40 meq PO ONETIME ONE Stop: 07/31/18 12:01 Last Admin: 07/31/18 11:58 Dose: 40 meq Potassium Chloride (Klor-Con M20) 40 meq PO ONETIME ONE Stop: 08/01/18 09:01 Last Admin: 08/01/18 08:22 Dose: 40 meq Potassium Chloride (Klor-Con M20) 40 meq PO ONETIME ONE Stop: 08/01/18 12:01 Last Admin: 08/01/18 11:18 Dose: 40 meq Potassium Chloride (Klor-Con M20) 40 meq PO ONETIME ONE Stop: 08/01/18 17:01 Last Admin: 08/01/18 17:03 Dose: 40 meq Potassium Chloride (Klor-Con M20) 40 meq PO ONETIME ONE Stop: 08/03/18 09:01 Last Admin: 08/03/18 09:57 Dose: 40 meq Potassium Chloride (Klor-Con M20) 40 meq PO ONETIME ONE Stop: 08/03/18 17:01 Last Admin: 08/03/18 16:22 Dose: 40 meq Potassium Chloride (Klor-Con M20) 40 meq PO ONETIME ONE Stop: 08/05/18 11:31 Last Admin: 08/05/18 11:24 Dose: 40 meq Potassium Chloride (Klor-Con M20) 40 meq PO ONETIME ONE Stop: 08/05/18 17:01 Last Admin: 08/05/18 16:49 Dose: 40 meq Potassium Chloride (Klor-Con M20) 40 meq PO BID [facility] Stop: 08/07/18 21:01 Last Admin: 08/07/18 20:55 Dose: 40 meq Potassium Chloride (Klor-Con M20) 40 meq PO ONETIME ONE Stop: 08/08/18 09:01 Last Admin: 08/08/18 09:59 Dose: 40 meq Potassium Chloride (Klor-Con M20) 40 meq PO ONETIME ONE Stop: 08/10/18 06:59 Last Admin: 08/10/18 07:10 Dose: 40 meq Potassium Chloride (Klor-Con M20) 40 meq PO TID [facility] Last Admin: 08/12/18 08:16 Dose: 40 meq Potassium Chloride (Klor-Con M20) 40 meq PO ONETIME ONE Stop: 08/13/18 08:32 Last Admin: 08/13/18 08:44 Dose: 40 meq Potassium Chloride (Klor-Con M20) 40 meq PO ONETIME ONE Stop: 08/13/18 12:01 Last Admin: 08/13/18 11:44 Dose: 40 meq Potassium Chloride (Klor-Con M20) 40 meq PO ONETIME ONE Stop: 08/13/18 17:01 Last Admin: 08/13/18 16:26 Dose: 40 meq Vancomycin HCl (Vancocin 250 Mg/5 Ml Soln) 250 mg PO Q6HR [facility] Last Admin: 08/06/18 10:58 Dose: 250 mg - Exam Quality Assessment: DVT Prophylaxis General: Alert, Oriented, Cooperative, No Acute Distress Lungs: Clear to Auscultation, Normal Respiratory Effort Cardiovascular: Regular Rate, Regular Rhythm, No Murmurs GI/Abdominal Exam: Soft, Non-Tender, No Organomegaly, No Distention Extremities: Non-Tender, No Pedal Edema - Problem List Review Problem List Initiated/Reviewed/Updated: Yes - My Orders Last 24 Hours: My Active Orders 08/15/18 05:00 CBC WITH AUTO DIFF [HEME] Timed COMPREHENSIVE METABOLIC PN,CMP [CHEM] Timed - Plan Plan:: ASSESSMENT AND PLAN - Alcoholic hepatitis/cirrhosis - further modest improvement in bilirubin level. Appetite and energy level improving. -Continue prednisolone 40 mg daily -Seroquel twice daily to help with hallucinations and agitation -Repeat liver labs in the morning -Symptomatic management for pain or nausea Acute acalculous cholecystitis, suspected - ultrasound showed distended gallbladder with sludge and mild wall thickening. Patient is asymptomatic. HIDA did not help evaluate gallbladder function because of diffuse hepatocellular disease. -Antibiotic therapy discontinued -Consider outpatient surgical follow-up unless symptoms develop Clostridium difficile colitis - diarrhea slowly improving. Tolerating oral vancomycin so far. -Continue vancomycin for total of 2 weeks (treatment through August 18) -contact precautions until diarrhea resolves Alcohol abuse - alcohol withdrawal has resolved. Petition for commitment completed and next hearing is today -Melatonin at bedtime -Currently on a court hold pending commitment Severe anxiety -Citalopram 20 mg by mouth daily -Seroquel twice daily Hypokalemia - potassium level improved with supplementation. -Potassium supplementation daily -Recheck again in the morning Tobacco dependence - no interest in quitting at this time. Current cigarette allowance is 3 per day. -Nicotine patch Maintenance issues - - DVT prophylaxis - mechanical - GI prophylaxis - PPI - Nutrition - regular diet Disposition - I would anticipate discharge to inpatient alcohol treatment after the hospital stay if he survives his severe alcoholic hepatitis
[2018-08-14] MEDS: Nicotine 14 MG/24 Hr Patch TRDERM PRN (16:28)
[2018-08-14] MEDS: Melatonin 3 MG Tab PO SCH (21:48)
[2018-08-15] MEDS: Vancomycin 250 MG/5 ML ML Oral Solution PO SCH ×4 (04:50→21:12)
--- NOTE | 2018-08-15 08:11 | LETTER ---
08/14/2018 To Whom It May Concern RE: BRYAN HERNANDEZ : 1980 Mr. Bryan Hernandez is a 37-year-old gentleman, currently under my care at [facility] in [place], [place]. Mr. Hernandez was originally hospitalized because of acute alcohol intoxication associated with severe weakness and acute alcoholic hepatitis. During this hospitalization, we have moved to proceed with commitment, that process was completed today, and he has now been committed by the chart picker for mandated alcohol treatment by the State. Mr. Hernandez did go through significant alcohol withdrawal during this hospitalization. He is now through that and is alert and interactive. He does have ongoing difficulty with anxiety. He has had ongoing difficulty with alcoholic hepatitis. His bilirubin level peaked at 25 with a Maddrey score of over 32, so he was started on prednisolone. With that therapy, his bilirubin level has slowly improved and is now down to 16. His hospital course has been complicated by C. difficile-positive diarrhea. He is currently receiving a course of oral antibiotic therapy with vancomycin and is no longer felt to be contagious. His overall strength has slowly improved where he is ambulatory and steady on his feet. Appetite has improved and his oral intake has been excellent. Albumin level remains low, but has slowly improved and today was at 2.1. I believe that Mr. Hernandez is medically stable and would be able to be managed as an outpatient at this time. He is cleared medically to be discharged to inpatient alcohol treatment as decided by the State. He is currently on oral medications, but will require followup and ongoing monitoring of his liver tests including bilirubin, AST, ALT, and alkaline phosphatase level. I would expect that these levels should continue to slowly improve, although they may not normalize as I do believe that he does have a component of hepatic cirrhosis. If there any further questions concerning Mr. Hernandez's current condition or recent care, please feel free to contact me. Sincerely, /[id number]
[2018-08-15] MEDS: Pantoprazole 40 MG Tab.CR PO SCH (08:35)
[2018-08-15] MEDS: Lactobacillus Rhamnosus GG (Probiotic) Cap PO SCH ×2 (08:55→21:12)
[2018-08-15] MEDS: Thiamine 100 MG Tab PO SCH (08:55)
[2018-08-15] MEDS: QUEtiapine 25 MG Tab PO SCH ×2 (08:55→21:13)
[2018-08-15] MEDS: Citalopram 20 MG Tab PO SCH (08:56)
[2018-08-15] MEDS: DULoxetine 30 MG Cap PO SCH ×2 (08:56→21:13)
[2018-08-15] MEDS: Folic Acid 1 MG Tab PO SCH (08:57)
[2018-08-15] MEDS: prednisoLONE 15 MG/5 ML Soln UD Cup PO SCH (08:59)
[2018-08-15] MEDS ORDERED: Potassium Chloride 20 MEQ Tab.ER PO ONE (09:00)
--- NOTE | 2018-08-15 09:53 | PCM.PN ---
- General Info Date of Service: 08/15/18 Subjective Update: Mr. Knowles has been stable since yesterday, further improvement in bilirubin today 12.9. Commitment hearing was held yesterday and he has been committed to his state custody for mandated alcohol treatment. Functional Status: Reports: Tolerating Diet, Ambulating, Urinating - Review of Systems General: Reports: No Symptoms Pulmonary: Reports: No Symptoms Cardiovascular: Reports: No Symptoms Gastrointestinal: Reports: No Symptoms - Patient Data Vitals - Most Recent: Last Vital Signs Temp 96.2 F 08/15/18 05:00 Pulse 80 08/15/18 05:00 Resp 17 08/15/18 05:00 BP 118/86 08/15/18 05:00 Pulse Ox 97 08/15/18 05:00 Orthostatic Blood Pressure [ 107/48 Standing] Orthostatic Blood Pressure [ 107/73 Sitting] Orthostatic Blood Pressure [ 121/83 Supine] Weight - Most Recent: 144 lb 11.2 oz Lab Results Last 24 Hours: Laboratory Results - last 24 hr 08/15/18 08/15/18 Range/Units 05:40 05:40 WBC 11.9 H (4.5-11.0) K/uL RBC 3.11 L (4.30-5.90) M/uL Hgb 10.1 L (12.0-15.0) g/dL Hct 30.7 L (40.0-54.0) % MCV 99 H (80-98) fL MCH 33 H (27-31) pg MCHC 33 (32-36) % Plt Count 234 (150-400) K/uL Add Manual Diff Yes Neutrophils % (Manual) 56 (36-66) % Lymphocytes % (Manual) 24 (24-44) % Monocytes % (Manual) 19 H (2-6) % Eosinophils % (Manual) 1 L (2-4) % Target Cells Moderate H Sodium 138 L (140-148) mmol/L Potassium 3.5 L (3.6-5.2) mmol/L Chloride 101 (100-108) mmol/L Carbon Dioxide 29 (21-32) mmol/L Anion Gap 11.5 (5.0-14.0) mmol/L BUN 10 (7-18) mg/dL Creatinine 0.6 L (0.8-1.3) mg/dL Est Cr Clr Drug Dosing 159.53 mL/min Estimated GFR (MDRD) > 60 (>60) Glucose 91 (74-106) mg/dL Calcium 8.8 (8.5-10.1) mg/dL Total Bilirubin 12.9 H (0.2-1.0) mg/dL AST 98 H (15-37) U/L ALT 197 H (12-78) U/L Alkaline Phosphatase 306 H (46-116) U/L Total Protein 6.0 L (6.4-8.2) g/dL Albumin 1.9 L (3.4-5.0) g/dL Globulin 4.1 H (2.3-3.5) g/dL Albumin/Globulin Ratio 0.5 L (1.2-2.2) Med Orders - Current: Current Medications Citalopram Hydrobromide (Celexa) 20 mg PO DAILY [facility] Last Admin: 08/15/18 08:56 Dose: 20 mg Duloxetine HCl (Cymbalta) 30 mg PO BID [facility] Last Admin: 08/15/18 08:56 Dose: 30 mg Folic Acid (Folic Acid) 1 mg PO DAILY [facility] Last Admin: 08/15/18 08:57 Dose: 1 mg Lactobacillus Rhamnosus (Culturelle) 1 cap PO BID [facility] Last Admin: 08/15/18 08:55 Dose: 1 cap Magnesium Hydroxide (Milk Of Magnesia) 30 ml PO Q12H PRN PRN Reason: Constipation Melatonin (Melatonin) 9 mg PO BEDTIME [facility] Last Admin: 08/14/18 21:48 Dose: 9 mg Nicotine (Habitrol) 14 mg TRDERM DAILY PRN PRN Reason: nicotine craving Last Admin: 08/14/18 16:28 Dose: 14 mg Ondansetron HCl (Zofran Odt) 4 mg PO Q6H PRN PRN Reason: Nausea able to take PO Last Admin: 08/02/18 15:15 Dose: 4 mg Ondansetron HCl (Zofran) 4 mg IV Q6H PRN PRN Reason: Nausea/Vomiting Pantoprazole Sodium (Protonix) 40 mg PO ACBREAKFAST [facility] Last Admin: 08/15/18 08:35 Dose: 40 mg Potassium Chloride (Klor-Con M20) 40 meq PO DAILY [facility] Last Admin: 08/14/18 08:43 Dose: 40 meq Prednisolone (Orapred 15 Mg/5ml Soln) 40 mg PO DAILY [facility] Last Admin: 08/15/18 08:59 Dose: 40 mg Quetiapine Fumarate (Seroquel) 25 mg PO BID [facility] Last Admin: 08/15/18 08:55 Dose: 25 mg Senna/Docusate Sodium (Senna Plus) 1 tab PO BID PRN PRN Reason: Constipation Thiamine HCl (Vitamin B-1) 100 mg PO DAILY [facility] Last Admin: 08/15/18 08:55 Dose: 100 mg Vancomycin HCl (Vancocin 250 Mg/5 Ml Soln) 125 mg PO Q6HR [facility] Stop: 08/18/18 22:30 Last Admin: 08/15/18 09:35 Dose: 125 mg Discontinued Medications Amoxicillin/Clavulanate Potassium (Augmentin 875 Mg/125 Mg) 1 tab PO Q12H [facility] Last Admin: 08/12/18 08:16 Dose: 1 tab Diphenoxylate HCl/Atropine (Lomotil 0.025-2.5 Mg) 1 tab PO Q4H PRN PRN Reason: Diarrhea Last Admin: 08/05/18 20:46 Dose: 1 tab Divalproex Sodium (Divalproex Sodium) 250 mg PO BIDMEALS [facility] Last Admin: 08/09/18 07:40 Dose: 250 mg Duloxetine HCl (Cymbalta) 30 mg PO DAILY [facility] Last Admin: 08/02/18 07:59 Dose: 30 mg Gabapentin (Neurontin) 400 mg PO TID [facility] Last Admin: 07/29/18 10:03 Dose: Not Given Gabapentin (Neurontin) 200 mg PO TID [facility] Last Admin: 08/01/18 13:21 Dose: 200 mg Haloperidol Lactate (Haldol) 2 mg IVPUSH Q4H PRN PRN Reason: Agitation Last Admin: 07/28/18 01:45 Dose: 2 mg Haloperidol Lactate (Haldol) 5 mg IM ONETIME [facility] Stop: 07/30/18 06:02 Last Admin: 07/30/18 06:16 Dose: 5 mg Hydromorphone HCl (Dilaudid) 0.5 mg IVPUSH Q2H PRN PRN Reason: Headache Last Admin: 08/03/18 01:19 Dose: 0.5 mg Multivitamins/Minerals 10 ml/Thiamine HCl 100 mg/ Folic Acid 1 mg/ Magnesium Sulfate 3 gm/ Sodium Chloride 1,017.2 mls @ 1,000 mls/hr IV ASDIRECTED [facility] Multivitamins/Minerals 10 ml/Thiamine HCl 100 mg/ Folic Acid 1 mg/ Magnesium Sulfate 3 gm/ Sodium Chloride 1,017.2 mls @ 500 mls/hr IV ASDIRECTED ONE Stop: 07/24/18 19:02 Last Admin: 07/24/18 17:03 Dose: 500 mls/hr Dextrose/Sodium Chloride (Dextrose 5%-Normal Saline) 1,000 mls @ 125 mls/hr IV ASDIRECTED [facility] Last Admin: 07/26/18 10:23 Dose: 125 mls/hr Potassium Chloride 20 meq/Lidocaine HCl 2 ml/ Sodium Chloride 112 mls @ 50 mls/ hr IV Q2H [facility] Stop: 07/24/18 22:03 Last Admin: 07/24/18 22:00 Dose: 50 mls/hr Potassium Chloride (Kcl 20 Meq In Water 100 Ml) Confirm Administered Dose 200 mls @ as directed .ROUTE .[facility] Stop: 07/24/18 19:43 Last Admin: 07/24/18 19:49 Dose: Not Given Potassium Chloride 20 meq/ (Premix) 0 mls @ 50 mls/hr IV ONETIME ONE Stop: 07/25/18 06:00 Last Admin: 07/25/18 10:06 Dose: Not Given Potassium Chloride (Kcl 20 Meq In Water 100 Ml) 100 mls @ 50 mls/hr IV Q2H [facility] Stop: 07/25/18 10:59 Last Admin: 07/25/18 09:02 Dose: 50 mls/hr Potassium Chloride 20 meq/Lidocaine HCl 2 ml/ Sodium Chloride 112 mls @ 50 mls/ hr IV Q2H [facility] Stop: 07/25/18 18:29 Last Admin: 07/25/18 17:11 Dose: 50 mls/hr Potassium Chloride 20 meq/Lidocaine HCl 2 ml/ Sodium Chloride 112 mls @ 56 mls/ hr IV Q2H [facility] Stop: 07/26/18 13:29 Last Admin: 07/26/18 12:31 Dose: 56 mls/hr Potassium Chloride/Dextrose/Sod Cl (D5 1/2 Ns W/ 20 Meq/L Kcl) 1,000 mls @ 75 mls/hr IV ASDIRECTED [facility] Last Admin: 07/27/18 03:56 Dose: 75 mls/hr Potassium Chloride/Dextrose/Sod Cl (D5 1/2 Ns W/ 20 Meq/L Kcl) 1,000 mls @ 50 mls/hr IV ASDIRECTED [facility] Last Admin: 07/29/18 18:36 Dose: 50 mls/hr Potassium Chloride 20 meq/Lidocaine HCl 2 ml/ Sodium Chloride 112 mls @ 50 mls/ hr IV Q2H [facility] Stop: 07/28/18 13:59 Last Admin: 07/28/18 12:23 Dose: 50 mls/hr Sodium Chloride (Normal Saline) 500 mls @ 500 mls/hr IV .[facility] ONE Stop: 07/28/18 19:36 Last Admin: 07/28/18 18:40 Dose: 500 mls/hr Potassium Chloride 20 meq/ (Premix) 100 mls @ 50 mls/hr IV Q2H [facility] Stop: 07/31/18 08:00 Last Admin: 07/31/18 06:35 Dose: 50 mls/hr Potassium Chloride 20 meq/Lidocaine HCl 2 ml/ Sodium Chloride 112 mls @ 56 mls/ hr IV ONETIME ONE Stop: 07/31/18 10:29 Last Admin: 07/31/18 08:27 Dose: 56 mls/hr Sodium Chloride (Normal Saline) 1,000 mls @ 125 mls/hr IV ASDIRECTED [facility] Last Admin: 08/01/18 03:23 Dose: 125 mls/hr Ampicillin Sodium/Sulbactam (Sodium 1.5 gm/ Sodium Chloride) 50 mls @ 100 mls/ hr IV Q6H [facility] Last Admin: 08/07/18 04:32 Dose: 100 mls/hr Ibuprofen (Motrin) 600 mg PO Q6H PRN PRN Reason: Pain/Fever Last Admin: 08/03/18 03:03 Dose: 600 mg Ketorolac Tromethamine (Toradol) 30 mg IVPUSH Q6H PRN PRN Reason: Pain Stop: 08/08/18 08:36 Last Admin: 08/03/18 19:52 Dose: 30 mg Lidocaine HCl (Xylocaine-Mpf 1%) 2 ml INJECT ONETIME ONE Stop: 07/25/18 06:02 Last Admin: 07/25/18 06:32 Dose: 2 ml Lidocaine HCl (Xylocaine-Mpf 1%) 2 ml INJECT ONETIME ONE Stop: 07/31/18 05:56 Last Admin: 07/31/18 06:41 Dose: 2 ml Loperamide HCl (Imodium) 2 mg PO Q4H PRN PRN Reason: Diarrhea Last Admin: 07/31/18 10:17 Dose: 2 mg Lorazepam (Ativan) 0 mg PO ASDIRECTED [facility]; Protocol Last Admin: 07/29/18 15:46 Dose: 1 mg Lorazepam (Ativan) 0 mg IV ASDIRECTED [facility]; Protocol Last Admin: 07/28/18 08:13 Dose: 2 mg Lorazepam (Ativan) 2 mg IVPUSH ASDIRECTED PRN PRN Reason: Seizures Last Admin: 07/28/18 09:00 Dose: 2 mg Lorazepam (Ativan) 1 mg PO ONETIME ONE Stop: 08/03/18 22:34 Last Admin: 08/03/18 22:51 Dose: 1 mg Nicotine (Habitrol) 14 mg TRDERM DAILY [facility] Last Admin: 08/09/18 08:20 Dose: Not Given Pantoprazole Sodium (Protonix Iv) 40 mg IV DAILY [facility] Last Admin: 07/24/18 19:52 Dose: 40 mg Pantoprazole Sodium (Protonix Iv) 40 mg IV Q24H [facility] Last Admin: 07/26/18 16:11 Dose: 40 mg Potassium Chloride (Klor-Con M20) 40 meq PO ONETIME ONE Stop: 07/31/18 06:01 Last Admin: 07/31/18 06:31 Dose: 40 meq Potassium Chloride (Klor-Con M20) 40 meq PO ONETIME ONE Stop: 07/31/18 12:01 Last Admin: 07/31/18 11:58 Dose: 40 meq Potassium Chloride (Klor-Con M20) 40 meq PO ONETIME ONE Stop: 08/01/18 09:01 Last Admin: 08/01/18 08:22 Dose: 40 meq Potassium Chloride (Klor-Con M20) 40 meq PO ONETIME ONE Stop: 08/01/18 12:01 Last Admin: 08/01/18 11:18 Dose: 40 meq Potassium Chloride (Klor-Con M20) 40 meq PO ONETIME ONE Stop: 08/01/18 17:01 Last Admin: 08/01/18 17:03 Dose: 40 meq Potassium Chloride (Klor-Con M20) 40 meq PO ONETIME ONE Stop: 08/03/18 09:01 Last Admin: 08/03/18 09:57 Dose: 40 meq Potassium Chloride (Klor-Con M20) 40 meq PO ONETIME ONE Stop: 08/03/18 17:01 Last Admin: 08/03/18 16:22 Dose: 40 meq Potassium Chloride (Klor-Con M20) 40 meq PO ONETIME ONE Stop: 08/05/18 11:31 Last Admin: 08/05/18 11:24 Dose: 40 meq Potassium Chloride (Klor-Con M20) 40 meq PO ONETIME ONE Stop: 08/05/18 17:01 Last Admin: 08/05/18 16:49 Dose: 40 meq Potassium Chloride (Klor-Con M20) 40 meq PO BID [facility] Stop: 08/07/18 21:01 Last Admin: 08/07/18 20:55 Dose: 40 meq Potassium Chloride (Klor-Con M20) 40 meq PO ONETIME ONE Stop: 08/08/18 09:01 Last Admin: 08/08/18 09:59 Dose: 40 meq Potassium Chloride (Klor-Con M20) 40 meq PO ONETIME ONE Stop: 08/10/18 06:59 Last Admin: 08/10/18 07:10 Dose: 40 meq Potassium Chloride (Klor-Con M20) 40 meq PO TID [facility] Last Admin: 08/12/18 08:16 Dose: 40 meq Potassium Chloride (Klor-Con M20) 40 meq PO ONETIME ONE Stop: 08/13/18 08:32 Last Admin: 08/13/18 08:44 Dose: 40 meq Potassium Chloride (Klor-Con M20) 40 meq PO ONETIME ONE Stop: 08/13/18 12:01 Last Admin: 08/13/18 11:44 Dose: 40 meq Potassium Chloride (Klor-Con M20) 40 meq PO ONETIME ONE Stop: 08/13/18 17:01 Last Admin: 08/13/18 16:26 Dose: 40 meq Potassium Chloride (Klor-Con M20) 40 meq PO ONETIME ONE Stop: 08/15/18 09:01 Last Admin: 08/15/18 08:57 Dose: 40 meq Vancomycin HCl (Vancocin 250 Mg/5 Ml Soln) 250 mg PO Q6HR [facility] Last Admin: 08/06/18 10:58 Dose: 250 mg - Exam General: Alert, Oriented, Cooperative, No Acute Distress Lungs: Clear to Auscultation, Normal Respiratory Effort Cardiovascular: Regular Rate, Regular Rhythm, No Murmurs GI/Abdominal Exam: Soft, Non-Tender, No Organomegaly, No Distention Skin: Other (Jaundice) - Problem List Review Problem List Initiated/Reviewed/Updated: Yes - My Orders Last 24 Hours: My Active Orders 08/16/18 05:00 COMPREHENSIVE METABOLIC PN,CMP [CHEM] Timed - Plan Plan:: ASSESSMENT AND PLAN - Alcoholic hepatitis/cirrhosis - bilirubin improved to 12.9 today. Appetite and energy level improving. -Seroquel twice daily to help with hallucinations and agitation -Repeat liver labs in the morning -Symptomatic management for pain or nausea Acute acalculous cholecystitis, resolved - stable now that he has completed antibiotic therapy, no fevers or abdominal pain. Clostridium difficile colitis - diarrhea slowly improving. Tolerating oral vancomycin so far. -Continue vancomycin for total of 2 weeks (treatment through August 18) -contact precautions until diarrhea resolves Alcohol abuse - alcohol withdrawal has resolved. He has been legally committed by the state and will be mandated to state alcohol treatment. -Melatonin at bedtime Severe anxiety -Citalopram 20 mg by mouth daily -Seroquel twice daily Hypokalemia - potassium level improved with supplementation. -Potassium supplementation daily -Recheck again in the morning Tobacco dependence - no interest in quitting at this time. Current cigarette allowance is 3 per day. -Nicotine patch Maintenance issues - - DVT prophylaxis - mechanical - GI prophylaxis - PPI - Nutrition - regular diet Disposition - I would anticipate discharge to inpatient alcohol treatment after the hospital stay if he survives his severe alcoholic hepatitis
[2018-08-15] MEDS: Potassium Chloride 20 MEQ Tab.ER PO SCH (12:00)
[2018-08-15] MEDS: Nicotine 14 MG/24 Hr Patch TRDERM PRN (19:40)
[2018-08-15] MEDS: Melatonin 3 MG Tab PO SCH (21:13)
[2018-08-16] MEDS: Vancomycin 250 MG/5 ML ML Oral Solution PO SCH ×4 (05:14→21:05)
[2018-08-16] MEDS: Pantoprazole 40 MG Tab.CR PO SCH (08:06)
[2018-08-16] MEDS: Citalopram 20 MG Tab PO SCH (08:13)
[2018-08-16] MEDS: QUEtiapine 25 MG Tab PO SCH (08:13)
[2018-08-16] MEDS: DULoxetine 30 MG Cap PO SCH ×2 (08:14→21:05)
[2018-08-16] MEDS: Potassium Chloride 20 MEQ Tab.ER PO SCH (08:14)
[2018-08-16] MEDS: Lactobacillus Rhamnosus GG (Probiotic) Cap PO SCH ×2 (08:15→21:05)
[2018-08-16] MEDS: Folic Acid 1 MG Tab PO SCH (08:15)
[2018-08-16] MEDS: Thiamine 100 MG Tab PO SCH (08:15)
[2018-08-16] MEDS: prednisoLONE 15 MG/5 ML Soln UD Cup PO SCH (08:18)
[2018-08-16] MEDS ORDERED: Potassium Chloride 20 MEQ Tab.ER PO ONE ×3 (09:00→17:00)
--- NOTE | 2018-08-16 09:18 | PCM.PN ---
- General Info Date of Service: 08/16/18 Subjective Update: Mr. Knowles has been stable over the last 24 hours, further improvement in bilirubin to 11.6. Eating well with total resolution of diarrhea. Awaiting state mandated placement in treatment facility. Functional Status: Reports: Tolerating Diet, Ambulating, Urinating - Review of Systems General: Denies: Fever, Weakness, Chills Pulmonary: Reports: No Symptoms Cardiovascular: Reports: No Symptoms Gastrointestinal: Reports: No Symptoms - Patient Data Vitals - Most Recent: Last Vital Signs Temp 96.0 F 08/16/18 08:00 Pulse 82 08/16/18 08:00 Resp 14 08/16/18 08:00 BP 128/86 08/16/18 08:00 Pulse Ox 99 08/16/18 08:00 Orthostatic Blood Pressure [ 107/48 Standing] Orthostatic Blood Pressure [ 107/73 Sitting] Orthostatic Blood Pressure [ 121/83 Supine] Weight - Most Recent: 144 lb 11.2 oz I&O - Last 24 Hours: Intake & Output 08/15/18 08/16/18 08/16/18 22:59 06:59 14:59 Output Total 50 Balance -50 Lab Results Last 24 Hours: Laboratory Results - last 24 hr 08/16/18 Range/Units 05:00 Sodium 140 (140-148) mmol/L Potassium 3.5 L (3.6-5.2) mmol/L Chloride 104 (100-108) mmol/L Carbon Dioxide 28 (21-32) mmol/L Anion Gap 11.5 (5.0-14.0) mmol/L BUN 10 (7-18) mg/dL Creatinine 0.7 L (0.8-1.3) mg/dL Est Cr Clr Drug Dosing 136.74 mL/min Estimated GFR (MDRD) > 60 (>60) Glucose 93 (74-106) mg/dL Calcium 8.9 (8.5-10.1) mg/dL Total Bilirubin 11.6 H (0.2-1.0) mg/dL AST 107 H (15-37) U/L ALT 215 H (12-78) U/L Alkaline Phosphatase 291 H (46-116) U/L Total Protein 6.2 L (6.4-8.2) g/dL Albumin 2.0 L (3.4-5.0) g/dL Globulin 4.2 H (2.3-3.5) g/dL Albumin/Globulin Ratio 0.5 L (1.2-2.2) Med Orders - Current: Current Medications Citalopram Hydrobromide (Celexa) 20 mg PO DAILY [facility] Last Admin: 08/16/18 08:13 Dose: 20 mg Duloxetine HCl (Cymbalta) 30 mg PO BID [facility] Last Admin: 08/16/18 08:14 Dose: 30 mg Folic Acid (Folic Acid) 1 mg PO DAILY [facility] Last Admin: 08/16/18 08:15 Dose: 1 mg Lactobacillus Rhamnosus (Culturelle) 1 cap PO BID [facility] Last Admin: 08/16/18 08:15 Dose: 1 cap Magnesium Hydroxide (Milk Of Magnesia) 30 ml PO Q12H PRN PRN Reason: Constipation Melatonin (Melatonin) 9 mg PO BEDTIME [facility] Last Admin: 08/15/18 21:13 Dose: 9 mg Nicotine (Habitrol) 14 mg TRDERM DAILY PRN PRN Reason: nicotine craving Last Admin: 08/15/18 19:40 Dose: 14 mg Ondansetron HCl (Zofran Odt) 4 mg PO Q6H PRN PRN Reason: Nausea able to take PO Last Admin: 08/02/18 15:15 Dose: 4 mg Ondansetron HCl (Zofran) 4 mg IV Q6H PRN PRN Reason: Nausea/Vomiting Pantoprazole Sodium (Protonix) 40 mg PO ACBREAKFAST [facility] Last Admin: 08/16/18 08:06 Dose: 40 mg Potassium Chloride (Klor-Con M20) 40 meq PO DAILY [facility] Last Admin: 08/16/18 08:14 Dose: 40 meq Potassium Chloride (Klor-Con M20) 40 meq PO ONETIME ONE Stop: 08/16/18 12:01 Potassium Chloride (Klor-Con M20) 40 meq PO ONETIME ONE Stop: 08/16/18 17:01 Quetiapine Fumarate (Seroquel) 25 mg PO BID [facility] Last Admin: 08/16/18 08:13 Dose: 25 mg Senna/Docusate Sodium (Senna Plus) 1 tab PO BID PRN PRN Reason: Constipation Thiamine HCl (Vitamin B-1) 100 mg PO DAILY [facility] Last Admin: 08/16/18 08:15 Dose: 100 mg Vancomycin HCl (Vancocin 250 Mg/5 Ml Soln) 125 mg PO Q6HR [facility] Stop: 08/18/18 22:30 Last Admin: 08/16/18 05:14 Dose: 125 mg Discontinued Medications Amoxicillin/Clavulanate Potassium (Augmentin 875 Mg/125 Mg) 1 tab PO Q12H [facility] Last Admin: 08/12/18 08:16 Dose: 1 tab Diphenoxylate HCl/Atropine (Lomotil 0.025-2.5 Mg) 1 tab PO Q4H PRN PRN Reason: Diarrhea Last Admin: 08/05/18 20:46 Dose: 1 tab Divalproex Sodium (Divalproex Sodium) 250 mg PO BIDMEALS [facility] Last Admin: 08/09/18 07:40 Dose: 250 mg Duloxetine HCl (Cymbalta) 30 mg PO DAILY [facility] Last Admin: 08/02/18 07:59 Dose: 30 mg Gabapentin (Neurontin) 400 mg PO TID [facility] Last Admin: 07/29/18 10:03 Dose: Not Given Gabapentin (Neurontin) 200 mg PO TID [facility] Last Admin: 08/01/18 13:21 Dose: 200 mg Haloperidol Lactate (Haldol) 2 mg IVPUSH Q4H PRN PRN Reason: Agitation Last Admin: 07/28/18 01:45 Dose: 2 mg Haloperidol Lactate (Haldol) 5 mg IM ONETIME [facility] Stop: 07/30/18 06:02 Last Admin: 07/30/18 06:16 Dose: 5 mg Hydromorphone HCl (Dilaudid) 0.5 mg IVPUSH Q2H PRN PRN Reason: Headache Last Admin: 08/03/18 01:19 Dose: 0.5 mg Multivitamins/Minerals 10 ml/Thiamine HCl 100 mg/ Folic Acid 1 mg/ Magnesium Sulfate 3 gm/ Sodium Chloride 1,017.2 mls @ 1,000 mls/hr IV ASDIRECTED [facility] Multivitamins/Minerals 10 ml/Thiamine HCl 100 mg/ Folic Acid 1 mg/ Magnesium Sulfate 3 gm/ Sodium Chloride 1,017.2 mls @ 500 mls/hr IV ASDIRECTED ONE Stop: 07/24/18 19:02 Last Admin: 07/24/18 17:03 Dose: 500 mls/hr Dextrose/Sodium Chloride (Dextrose 5%-Normal Saline) 1,000 mls @ 125 mls/hr IV ASDIRECTED [facility] Last Admin: 07/26/18 10:23 Dose: 125 mls/hr Potassium Chloride 20 meq/Lidocaine HCl 2 ml/ Sodium Chloride 112 mls @ 50 mls/ hr IV Q2H [facility] Stop: 07/24/18 22:03 Last Admin: 07/24/18 22:00 Dose: 50 mls/hr Potassium Chloride (Kcl 20 Meq In Water 100 Ml) Confirm Administered Dose 200 mls @ as directed .ROUTE .STK-MED ONE Stop: 07/24/18 19:43 Last Admin: 07/24/18 19:49 Dose: Not Given Potassium Chloride 20 meq/ (Premix) 0 mls @ 50 mls/hr IV ONETIME ONE Stop: 07/25/18 06:00 Last Admin: 07/25/18 10:06 Dose: Not Given Potassium Chloride (Kcl 20 Meq In Water 100 Ml) 100 mls @ 50 mls/hr IV Q2H [facility] Stop: 07/25/18 10:59 Last Admin: 07/25/18 09:02 Dose: 50 mls/hr Potassium Chloride 20 meq/Lidocaine HCl 2 ml/ Sodium Chloride 112 mls @ 50 mls/ hr IV Q2H [facility] Stop: 07/25/18 18:29 Last Admin: 07/25/18 17:11 Dose: 50 mls/hr Potassium Chloride 20 meq/Lidocaine HCl 2 ml/ Sodium Chloride 112 mls @ 56 mls/ hr IV Q2H [facility] Stop: 07/26/18 13:29 Last Admin: 07/26/18 12:31 Dose: 56 mls/hr Potassium Chloride/Dextrose/Sod Cl (D5 1/2 Ns W/ 20 Meq/L Kcl) 1,000 mls @ 75 mls/hr IV ASDIRECTED [facility] Last Admin: 07/27/18 03:56 Dose: 75 mls/hr Potassium Chloride/Dextrose/Sod Cl (D5 1/2 Ns W/ 20 Meq/L Kcl) 1,000 mls @ 50 mls/hr IV ASDIRECTED [facility] Last Admin: 07/29/18 18:36 Dose: 50 mls/hr Potassium Chloride 20 meq/Lidocaine HCl 2 ml/ Sodium Chloride 112 mls @ 50 mls/ hr IV Q2H [facility] Stop: 07/28/18 13:59 Last Admin: 07/28/18 12:23 Dose: 50 mls/hr Sodium Chloride (Normal Saline) 500 mls @ 500 mls/hr IV .BOLUS ONE Stop: 07/28/18 19:36 Last Admin: 07/28/18 18:40 Dose: 500 mls/hr Potassium Chloride 20 meq/ (Premix) 100 mls @ 50 mls/hr IV Q2H [facility] Stop: 07/31/18 08:00 Last Admin: 07/31/18 06:35 Dose: 50 mls/hr Potassium Chloride 20 meq/Lidocaine HCl 2 ml/ Sodium Chloride 112 mls @ 56 mls/ hr IV ONETIME ONE Stop: 07/31/18 10:29 Last Admin: 07/31/18 08:27 Dose: 56 mls/hr Sodium Chloride (Normal Saline) 1,000 mls @ 125 mls/hr IV ASDIRECTED [facility] Last Admin: 08/01/18 03:23 Dose: 125 mls/hr Ampicillin Sodium/Sulbactam (Sodium 1.5 gm/ Sodium Chloride) 50 mls @ 100 mls/ hr IV Q6H [facility] Last Admin: 08/07/18 04:32 Dose: 100 mls/hr Ibuprofen (Motrin) 600 mg PO Q6H PRN PRN Reason: Pain/Fever Last Admin: 08/03/18 03:03 Dose: 600 mg Ketorolac Tromethamine (Toradol) 30 mg IVPUSH Q6H PRN PRN Reason: Pain Stop: 08/08/18 08:36 Last Admin: 08/03/18 19:52 Dose: 30 mg Lidocaine HCl (Xylocaine-Mpf 1%) 2 ml INJECT ONETIME ONE Stop: 07/25/18 06:02 Last Admin: 07/25/18 06:32 Dose: 2 ml Lidocaine HCl (Xylocaine-Mpf 1%) 2 ml INJECT ONETIME ONE Stop: 07/31/18 05:56 Last Admin: 07/31/18 06:41 Dose: 2 ml Loperamide HCl (Imodium) 2 mg PO Q4H PRN PRN Reason: Diarrhea Last Admin: 07/31/18 10:17 Dose: 2 mg Lorazepam (Ativan) 0 mg PO ASDIRECTED [facility]; Protocol Last Admin: 07/29/18 15:46 Dose: 1 mg Lorazepam (Ativan) 0 mg IV ASDIRECTED [facility]; Protocol Last Admin: 07/28/18 08:13 Dose: 2 mg Lorazepam (Ativan) 2 mg IVPUSH ASDIRECTED PRN PRN Reason: Seizures Last Admin: 07/28/18 09:00 Dose: 2 mg Lorazepam (Ativan) 1 mg PO ONETIME ONE Stop: 08/03/18 22:34 Last Admin: 08/03/18 22:51 Dose: 1 mg Nicotine (Habitrol) 14 mg TRDERM DAILY [facility] Last Admin: 08/09/18 08:20 Dose: Not Given Pantoprazole Sodium (Protonix Iv) 40 mg IV DAILY [facility] Last Admin: 07/24/18 19:52 Dose: 40 mg Pantoprazole Sodium (Protonix Iv) 40 mg IV Q24H [facility] Last Admin: 07/26/18 16:11 Dose: 40 mg Potassium Chloride (Klor-Con M20) 40 meq PO ONETIME ONE Stop: 07/31/18 06:01 Last Admin: 07/31/18 06:31 Dose: 40 meq Potassium Chloride (Klor-Con M20) 40 meq PO ONETIME ONE Stop: 07/31/18 12:01 Last Admin: 07/31/18 11:58 Dose: 40 meq Potassium Chloride (Klor-Con M20) 40 meq PO ONETIME ONE Stop: 08/01/18 09:01 Last Admin: 08/01/18 08:22 Dose: 40 meq Potassium Chloride (Klor-Con M20) 40 meq PO ONETIME ONE Stop: 08/01/18 12:01 Last Admin: 08/01/18 11:18 Dose: 40 meq Potassium Chloride (Klor-Con M20) 40 meq PO ONETIME ONE Stop: 08/01/18 17:01 Last Admin: 08/01/18 17:03 Dose: 40 meq Potassium Chloride (Klor-Con M20) 40 meq PO ONETIME ONE Stop: 08/03/18 09:01 Last Admin: 08/03/18 09:57 Dose: 40 meq Potassium Chloride (Klor-Con M20) 40 meq PO ONETIME ONE Stop: 08/03/18 17:01 Last Admin: 08/03/18 16:22 Dose: 40 meq Potassium Chloride (Klor-Con M20) 40 meq PO ONETIME ONE Stop: 08/05/18 11:31 Last Admin: 08/05/18 11:24 Dose: 40 meq Potassium Chloride (Klor-Con M20) 40 meq PO ONETIME ONE Stop: 08/05/18 17:01 Last Admin: 08/05/18 16:49 Dose: 40 meq Potassium Chloride (Klor-Con M20) 40 meq PO BID [facility] Stop: 08/07/18 21:01 Last Admin: 08/07/18 20:55 Dose: 40 meq Potassium Chloride (Klor-Con M20) 40 meq PO ONETIME ONE Stop: 08/08/18 09:01 Last Admin: 08/08/18 09:59 Dose: 40 meq Potassium Chloride (Klor-Con M20) 40 meq PO ONETIME ONE Stop: 08/10/18 06:59 Last Admin: 08/10/18 07:10 Dose: 40 meq Potassium Chloride (Klor-Con M20) 40 meq PO TID [facility] Last Admin: 08/12/18 08:16 Dose: 40 meq Potassium Chloride (Klor-Con M20) 40 meq PO ONETIME ONE Stop: 08/13/18 08:32 Last Admin: 08/13/18 08:44 Dose: 40 meq Potassium Chloride (Klor-Con M20) 40 meq PO ONETIME ONE Stop: 08/13/18 12:01 Last Admin: 08/13/18 11:44 Dose: 40 meq Potassium Chloride (Klor-Con M20) 40 meq PO ONETIME ONE Stop: 08/13/18 17:01 Last Admin: 08/13/18 16:26 Dose: 40 meq Potassium Chloride (Klor-Con M20) 40 meq PO ONETIME ONE Stop: 08/15/18 09:01 Last Admin: 08/15/18 08:57 Dose: 40 meq Prednisolone (Orapred 15 Mg/5ml Soln) 40 mg PO DAILY [facility] Last Admin: 08/16/18 08:18 Dose: 40 mg Vancomycin HCl (Vancocin 250 Mg/5 Ml Soln) 250 mg PO Q6HR [facility] Last Admin: 08/06/18 10:58 Dose: 250 mg - Exam Quality Assessment: DVT Prophylaxis General: Alert, Oriented, Cooperative, No Acute Distress Lungs: Clear to Auscultation, Normal Respiratory Effort Cardiovascular: Regular Rate, Regular Rhythm, No Murmurs GI/Abdominal Exam: Soft, Non-Tender, No Organomegaly, No Distention - Problem List Review Problem List Initiated/Reviewed/Updated: Yes - My Orders Last 24 Hours: My Active Orders 08/16/18 12:00 Potassium Chloride [Klor-Con M20] 40 meq PO ONETIME ONE 08/16/18 17:00 Potassium Chloride [Klor-Con M20] 40 meq PO ONETIME ONE 08/17/18 05:00 COMPREHENSIVE METABOLIC PN,CMP [CHEM] Timed - Plan Plan:: ASSESSMENT AND PLAN - Alcoholic hepatitis/cirrhosis - bilirubin improved to 11.6 today. Appetite and energy level improving. -Seroquel twice daily to help with hallucinations and agitation -Repeat liver labs in the morning -Symptomatic management for pain or nausea Acute acalculous cholecystitis, resolved - stable now that he has completed antibiotic therapy, no fevers or abdominal pain. Clostridium difficile colitis - diarrhea slowly improving. Tolerating oral vancomycin so far. -Continue vancomycin for total of 2 weeks (treatment through August 18) Alcohol abuse - alcohol withdrawal has resolved. He has been legally committed by the state and will be mandated to state alcohol treatment. -Melatonin at bedtime Severe anxiety -Citalopram 20 mg by mouth daily -Seroquel twice daily Hypokalemia - potassium level improved with supplementation. -Potassium supplementation daily -Recheck again in the morning Tobacco dependence - no interest in quitting at this time. Current cigarette allowance is 3 per day. -Nicotine patch Maintenance issues - - DVT prophylaxis - mechanical - GI prophylaxis - PPI - Nutrition - regular diet Disposition - I would anticipate discharge to inpatient alcohol treatment after the hospital stay if he survives his severe alcoholic hepatitis
[2018-08-16] MEDS: Melatonin 3 MG Tab PO SCH (21:05)
[2018-08-17] MEDS: Vancomycin 250 MG/5 ML ML Oral Solution PO SCH ×4 (03:30→21:51)
[2018-08-17] MEDS: Pantoprazole 40 MG Tab.CR PO SCH (08:24)
[2018-08-17] MEDS: DULoxetine 30 MG Cap PO SCH ×2 (08:24→21:51)
[2018-08-17] MEDS: Potassium Chloride 20 MEQ Tab.ER PO SCH ×2 (08:25→21:51)
[2018-08-17] MEDS: Thiamine 100 MG Tab PO SCH (08:25)
[2018-08-17] MEDS: Folic Acid 1 MG Tab PO SCH (08:25)
[2018-08-17] MEDS: Citalopram 20 MG Tab PO SCH (08:25)
[2018-08-17] MEDS: Lactobacillus Rhamnosus GG (Probiotic) Cap PO SCH ×2 (08:25→21:51)
[2018-08-17] MEDS ORDERED: Potassium Chloride 20 MEQ Tab.ER PO ONE (10:00)
--- NOTE | 2018-08-17 10:48 | PCM.PN ---
- General Info Date of Service: 08/17/18 Subjective Update: Mr. Knowles has been stable since yesterday, no further diarrhea or hallucinations. Bilirubin level is now down to 10.1. Functional Status: Reports: Tolerating Diet, Ambulating, Urinating - Review of Systems General: Denies: Fever, Chills Pulmonary: Reports: No Symptoms Cardiovascular: Reports: No Symptoms Gastrointestinal: Reports: No Symptoms - Patient Data Vitals - Most Recent: Last Vital Signs Temp 96 F 08/17/18 08:00 Pulse 60 08/17/18 08:00 Resp 12 08/17/18 08:00 BP 137/90 08/17/18 08:00 Pulse Ox 99 08/17/18 08:00 Orthostatic Blood Pressure [ 107/48 Standing] Orthostatic Blood Pressure [ 107/73 Sitting] Orthostatic Blood Pressure [ 121/83 Supine] Weight - Most Recent: 144 lb 11.2 oz I&O - Last 24 Hours: Intake & Output 08/16/18 08/17/18 08/17/18 22:59 06:59 14:59 Intake Total 840 Balance 840 Lab Results Last 24 Hours: Laboratory Results - last 24 hr 08/17/18 Range/Units 06:01 Sodium 137 L (140-148) mmol/L Potassium 3.3 L (3.6-5.2) mmol/L Chloride 104 (100-108) mmol/L Carbon Dioxide 25 (21-32) mmol/L Anion Gap 11.3 (5.0-14.0) mmol/L BUN 11 (7-18) mg/dL Creatinine 0.6 L (0.8-1.3) mg/dL Est Cr Clr Drug Dosing 159.53 mL/min Estimated GFR (MDRD) > 60 (>60) Glucose 96 (74-106) mg/dL Calcium 8.8 (8.5-10.1) mg/dL Total Bilirubin 10.1 H (0.2-1.0) mg/dL AST 107 H (15-37) U/L ALT 225 H (12-78) U/L Alkaline Phosphatase 261 H (46-116) U/L Total Protein 6.0 L (6.4-8.2) g/dL Albumin 1.9 L (3.4-5.0) g/dL Globulin 4.1 H (2.3-3.5) g/dL Albumin/Globulin Ratio 0.5 L (1.2-2.2) Med Orders - Current: Current Medications Citalopram Hydrobromide (Celexa) [address] [facility] Last Admin: 08/17/18 08:25 Dose: 20 mg Duloxetine HCl (Cymbalta) [address] [facility] Last Admin: 08/17/18 08:24 Dose: 30 mg Folic Acid (Folic Acid) [address] [facility] Last Admin: 08/17/18 08:25 Dose: 1 mg Lactobacillus Rhamnosus (Culturelle) [address] [facility] Last Admin: 08/17/18 08:25 Dose: 1 cap Magnesium Hydroxide (Milk Of Magnesia) 30 ml PO Q12H PRN PRN Reason: Constipation Melatonin (Melatonin) [address] [facility] Last Admin: 08/16/18 21:05 Dose: 9 mg Nicotine (Habitrol) 14 mg TRDERM DAILY PRN PRN Reason: nicotine craving Last Admin: 08/15/18 19:40 Dose: 14 mg Ondansetron HCl (Zofran Odt) 4 mg PO Q6H PRN PRN Reason: Nausea able to take PO Last Admin: 08/02/18 15:15 Dose: 4 mg Ondansetron HCl (Zofran) 4 mg IV Q6H PRN PRN Reason: Nausea/Vomiting Pantoprazole Sodium (Protonix) [address] [facility] Last Admin: 08/17/18 08:24 Dose: 40 mg Potassium Chloride (Klor-Con M20) [address] [facility] Senna/Docusate Sodium (Senna Plus) 1 tab PO BID PRN PRN Reason: Constipation Thiamine HCl (Vitamin B-1) [address] [facility] Last Admin: 08/17/18 08:25 Dose: 100 mg Vancomycin HCl (Vancocin 250 Mg/5 Ml Soln) [address] [facility] Stop: 08/17/18 22:30 Last Admin: 08/17/18 09:59 Dose: 125 mg Discontinued Medications Amoxicillin/Clavulanate Potassium (Augmentin 875 Mg/125 Mg) [address] [facility] Last Admin: 08/12/18 08:16 Dose: 1 tab Diphenoxylate HCl/Atropine (Lomotil 0.025-2.5 Mg) 1 tab PO Q4H PRN PRN Reason: Diarrhea Last Admin: 08/05/18 20:46 Dose: 1 tab Divalproex Sodium (Divalproex Sodium) [address] [facility] Last Admin: 08/09/18 07:40 Dose: 250 mg Duloxetine HCl (Cymbalta) [address] [facility] Last Admin: 08/02/18 07:59 Dose: 30 mg Gabapentin (Neurontin) [address] [facility] Last Admin: 07/29/18 10:03 Dose: Not Given Gabapentin (Neurontin) [address] [facility] Last Admin: 08/01/18 13:21 Dose: 200 mg Haloperidol Lactate (Haldol) 2 mg IVPUSH Q4H PRN PRN Reason: Agitation Last Admin: 07/28/18 01:45 Dose: 2 mg Haloperidol Lactate (Haldol) 5 mg IM ONETIME [facility] Stop: 07/30/18 06:02 Last Admin: 07/30/18 06:16 Dose: 5 mg Hydromorphone HCl (Dilaudid) 0.5 mg IVPUSH Q2H PRN PRN Reason: Headache Last Admin: 08/03/18 01:19 Dose: 0.5 mg Multivitamins/Minerals 10 ml/Thiamine HCl 100 mg/ Folic Acid 1 mg/ Magnesium Sulfate 3 gm/ Sodium Chloride 1,017.2 mls @ 1,000 mls/hr IV ASDIRECTED [facility] Multivitamins/Minerals 10 ml/Thiamine HCl 100 mg/ Folic Acid 1 mg/ Magnesium Sulfate 3 gm/ Sodium Chloride 1,017.2 mls @ 500 mls/hr IV ASDIRECTED ONE Stop: 07/24/18 19:02 Last Admin: 07/24/18 17:03 Dose: 500 mls/hr Dextrose/Sodium Chloride (Dextrose 5%-Normal Saline) 1,000 mls @ 125 mls/hr IV ASDIRECTED [facility] Last Admin: 07/26/18 10:23 Dose: 125 mls/hr Potassium Chloride 20 meq/Lidocaine HCl 2 ml/ Sodium Chloride 112 mls @ 50 mls/ hr IV Q2H [facility] Stop: 07/24/18 22:03 Last Admin: 07/24/18 22:00 Dose: 50 mls/hr Potassium Chloride (Kcl 20 Meq In Water 100 Ml) Confirm Administered Dose 200 mls @ as directed .ROUTE .STK-MED ONE Stop: 07/24/18 19:43 Last Admin: 07/24/18 19:49 Dose: Not Given Potassium Chloride 20 meq/ (Premix) 0 mls @ 50 mls/hr IV ONETIME ONE Stop: 07/25/18 06:00 Last Admin: 07/25/18 10:06 Dose: Not Given Potassium Chloride (Kcl 20 Meq In Water 100 Ml) 100 mls @ 50 mls/hr IV Q2H [facility] Stop: 07/25/18 10:59 Last Admin: 07/25/18 09:02 Dose: 50 mls/hr Potassium Chloride 20 meq/Lidocaine HCl 2 ml/ Sodium Chloride 112 mls @ 50 mls/ hr IV Q2H [facility] Stop: 07/25/18 18:29 Last Admin: 07/25/18 17:11 Dose: 50 mls/hr Potassium Chloride 20 meq/Lidocaine HCl 2 ml/ Sodium Chloride 112 mls @ 56 mls/ hr IV Q2H [facility] Stop: 07/26/18 13:29 Last Admin: 07/26/18 12:31 Dose: 56 mls/hr Potassium Chloride/Dextrose/Sod Cl (D5 1/2 Ns W/ 20 Meq/L Kcl) 1,000 mls @ 75 mls/hr IV ASDIRECTED [facility] Last Admin: 07/27/18 03:56 Dose: 75 mls/hr Potassium Chloride/Dextrose/Sod Cl (D5 1/2 Ns W/ 20 Meq/L Kcl) 1,000 mls @ 50 mls/hr IV ASDIRECTED [facility] Last Admin: 07/29/18 18:36 Dose: 50 mls/hr Potassium Chloride 20 meq/Lidocaine HCl 2 ml/ Sodium Chloride 112 mls @ 50 mls/ hr IV Q2H [facility] Stop: 07/28/18 13:59 Last Admin: 07/28/18 12:23 Dose: 50 mls/hr Sodium Chloride (Normal Saline) 500 mls @ 500 mls/hr IV .BOLUS ONE Stop: 07/28/18 19:36 Last Admin: 07/28/18 18:40 Dose: 500 mls/hr Potassium Chloride 20 meq/ (Premix) 100 mls @ 50 mls/hr IV Q2H [facility] Stop: 07/31/18 08:00 Last Admin: 07/31/18 06:35 Dose: 50 mls/hr Potassium Chloride 20 meq/Lidocaine HCl 2 ml/ Sodium Chloride 112 mls @ 56 mls/ hr IV ONETIME ONE Stop: 07/31/18 10:29 Last Admin: 07/31/18 08:27 Dose: 56 mls/hr Sodium Chloride (Normal Saline) 1,000 mls @ 125 mls/hr IV ASDIRECTED [facility] Last Admin: 08/01/18 03:23 Dose: 125 mls/hr Ampicillin Sodium/Sulbactam (Sodium 1.5 gm/ Sodium Chloride) 50 mls @ 100 mls/ hr IV Q6H [facility] Last Admin: 08/07/18 04:32 Dose: 100 mls/hr Ibuprofen (Motrin) 600 mg PO Q6H PRN PRN Reason: Pain/Fever Last Admin: 08/03/18 03:03 Dose: 600 mg Ketorolac Tromethamine (Toradol) 30 mg IVPUSH Q6H PRN PRN Reason: Pain Stop: 08/08/18 08:36 Last Admin: 08/03/18 19:52 Dose: 30 mg Lidocaine HCl (Xylocaine-Mpf 1%) 2 ml INJECT ONETIME ONE Stop: 07/25/18 06:02 Last Admin: 07/25/18 06:32 Dose: 2 ml Lidocaine HCl (Xylocaine-Mpf 1%) 2 ml INJECT ONETIME ONE Stop: 07/31/18 05:56 Last Admin: 07/31/18 06:41 Dose: 2 ml Loperamide HCl (Imodium) 2 mg PO Q4H PRN PRN Reason: Diarrhea Last Admin: 07/31/18 10:17 Dose: 2 mg Lorazepam (Ativan) [address] [facility]; Protocol Last Admin: 07/29/18 15:46 Dose: 1 mg Lorazepam (Ativan) 0 mg IV ASDIRECTED [facility]; Protocol Last Admin: 07/28/18 08:13 Dose: 2 mg Lorazepam (Ativan) 2 mg IVPUSH ASDIRECTED PRN PRN Reason: Seizures Last Admin: 07/28/18 09:00 Dose: 2 mg Lorazepam (Ativan) 1 mg PO ONETIME ONE Stop: 08/03/18 22:34 Last Admin: 08/03/18 22:51 Dose: 1 mg Nicotine (Habitrol) [address] [facility] Last Admin: 08/09/18 08:20 Dose: Not Given Pantoprazole Sodium (Protonix Iv) [address] [facility] Last Admin: 07/24/18 19:52 Dose: 40 mg Pantoprazole Sodium (Protonix Iv) [address] [facility] Last Admin: 07/26/18 16:11 Dose: 40 mg Potassium Chloride (Klor-Con M20) 40 meq PO ONETIME ONE Stop: 07/31/18 06:01 Last Admin: 07/31/18 06:31 Dose: 40 meq Potassium Chloride (Klor-Con M20) 40 meq PO ONETIME ONE Stop: 07/31/18 12:01 Last Admin: 07/31/18 11:58 Dose: 40 meq Potassium Chloride (Klor-Con M20) 40 meq PO ONETIME ONE Stop: 08/01/18 09:01 Last Admin: 08/01/18 08:22 Dose: 40 meq Potassium Chloride (Klor-Con M20) 40 meq PO ONETIME ONE Stop: 08/01/18 12:01 Last Admin: 08/01/18 11:18 Dose: 40 meq Potassium Chloride (Klor-Con M20) 40 meq PO ONETIME ONE Stop: 08/01/18 17:01 Last Admin: 08/01/18 17:03 Dose: 40 meq Potassium Chloride (Klor-Con M20) 40 meq PO ONETIME ONE Stop: 08/03/18 09:01 Last Admin: 08/03/18 09:57 Dose: 40 meq Potassium Chloride (Klor-Con M20) 40 meq PO ONETIME ONE Stop: 08/03/18 17:01 Last Admin: 08/03/18 16:22 Dose: 40 meq Potassium Chloride (Klor-Con M20) 40 meq PO ONETIME ONE Stop: 08/05/18 11:31 Last Admin: 08/05/18 11:24 Dose: 40 meq Potassium Chloride (Klor-Con M20) 40 meq PO ONETIME ONE Stop: 08/05/18 17:01 Last Admin: 08/05/18 16:49 Dose: 40 meq Potassium Chloride (Klor-Con M20) 40 meq PO BID [facility] Stop: 08/07/18 21:01 Last Admin: 08/07/18 20:55 Dose: 40 meq Potassium Chloride (Klor-Con M20) 40 meq PO ONETIME ONE Stop: 08/08/18 09:01 Last Admin: 08/08/18 09:59 Dose: 40 meq Potassium Chloride (Klor-Con M20) 40 meq PO ONETIME ONE Stop: 08/10/18 06:59 Last Admin: 08/10/18 07:10 Dose: 40 meq Potassium Chloride (Klor-Con M20) [address] [facility] Last Admin: 08/12/18 08:16 Dose: 40 meq Potassium Chloride (Klor-Con M20) [address] [facility] Last Admin: 08/17/18 08:25 Dose: 40 meq Potassium Chloride (Klor-Con M20) 40 meq PO ONETIME ONE Stop: 08/13/18 08:32 Last Admin: 08/13/18 08:44 Dose: 40 meq Potassium Chloride (Klor-Con M20) 40 meq PO ONETIME ONE Stop: 08/13/18 12:01 Last Admin: 08/13/18 11:44 Dose: 40 meq Potassium Chloride (Klor-Con M20) 40 meq PO ONETIME ONE Stop: 08/13/18 17:01 Last Admin: 08/13/18 16:26 Dose: 40 meq Potassium Chloride (Klor-Con M20) 40 meq PO ONETIME ONE Stop: 08/15/18 09:01 Last Admin: 08/15/18 08:57 Dose: 40 meq Potassium Chloride (Klor-Con M20) 40 meq PO ONETIME ONE Stop: 08/16/18 12:01 Last Admin: 08/16/18 12:07 Dose: 40 meq Potassium Chloride (Klor-Con M20) 40 meq PO ONETIME ONE Stop: 08/16/18 17:01 Last Admin: 08/16/18 17:03 Dose: 40 meq Potassium Chloride (Klor-Con M20) 40 meq PO ONETIME ONE Stop: 08/17/18 10:01 Last Admin: 08/17/18 09:58 Dose: 40 meq Prednisolone (Orapred 15 Mg/5ml Soln) [address] [facility] Last Admin: 08/16/18 08:18 Dose: 40 mg Quetiapine Fumarate (Seroquel) [address] [facility] Last Admin: 08/16/18 08:13 Dose: 25 mg Vancomycin HCl (Vancocin 250 Mg/5 Ml Soln) [address] [facility] Last Admin: 07/01/19 10:58 Dose: 250 mg - Exam Quality Assessment: DVT Prophylaxis General: Alert, Oriented, Cooperative, No Acute Distress Lungs: Clear to Auscultation, Normal Respiratory Effort Cardiovascular: Regular Rate, Regular Rhythm, No Murmurs GI/Abdominal Exam: Soft, Non-Tender, No Organomegaly, No Distention Extremities: Non-Tender, No Pedal Edema - Problem List & Annotations (1) Alcohol withdrawal delirium, acute, hypoactive SNOMED Code(s): 2259910, 34256025 Code(s): F10.231 - ALCOHOL DEPENDENCE WITH WITHDRAWAL DELIRIUM Status: Acute Current Visit: Yes (2) Clostridium difficile colitis SNOMED Code(s): 319620115 Code(s): A04.72 - ENTEROCOLITIS D/T CLOSTRIDIUM DIFFICILE, NOT SPCF RECUR Status: Acute Current Visit: Yes (3) Alcohol abuse SNOMED Code(s): 28639605 Code(s): F10.10 - ALCOHOL ABUSE, UNCOMPLICATED Status: Acute Current Visit: Yes (4) Dehydration SNOMED Code(s): 41550225 Code(s): E86.0 - DEHYDRATION Status: Acute Current Visit: Yes (5) Alcoholic cirrhosis of liver SNOMED Code(s): 539158626 Code(s): K70.30 - ALCOHOLIC CIRRHOSIS OF LIVER WITHOUT ASCITES Status: Acute Current Visit: Yes Qualifiers: Ascites presence: unspecified Qualified Code(s): K70.30 - Alcoholic cirrhosis of liver without ascites (6) Alcoholic hepatitis SNOMED Code(s): 296761831 Code(s): K70.10 - ALCOHOLIC HEPATITIS WITHOUT ASCITES Status: Acute Current Visit: Yes - Problem List Review Problem List Initiated/Reviewed/Updated: Yes - My Orders Last 24 Hours: My Active Orders 08/17/18 21:00 Potassium Chloride [Klor-Con M20] 40 meq PO BID 08/18/18 05:00 COMPREHENSIVE METABOLIC PN,CMP [CHEM] Timed - Plan Plan:: ASSESSMENT AND PLAN - Alcoholic hepatitis/cirrhosis - bilirubin improved to 10.1 today. Appetite and energy level improving. -Repeat liver labs in the morning Acute acalculous cholecystitis, resolved - stable now that he has completed antibiotic therapy, no fevers or abdominal pain. Clostridium difficile colitis - diarrhea resolved -Continue vancomycin for total of 2 weeks (treatment through August 17) Alcohol abuse - alcohol withdrawal has resolved. He has been legally committed by the state and will be mandated to state alcohol treatment. Severe anxiety -Citalopram 20 mg by mouth daily Hypokalemia - potassium level improved with supplementation. -Potassium supplementation daily -Recheck again in the morning Tobacco dependence - no interest in quitting at this time. Current cigarette allowance is 3 per day. -Nicotine patch Maintenance issues - - DVT prophylaxis - mechanical - GI prophylaxis - PPI - Nutrition - regular diet Disposition - I would anticipate discharge to inpatient alcohol treatment after the hospital stay
[2018-08-17] MEDS: Melatonin 3 MG Tab PO SCH (21:51)
[2018-08-18] MEDS: Folic Acid 1 MG Tab PO SCH (08:08)
[2018-08-18] MEDS: Pantoprazole 40 MG Tab.CR PO SCH (08:08)
[2018-08-18] MEDS: Potassium Chloride 20 MEQ Tab.ER PO SCH ×2 (08:08→21:24)
[2018-08-18] MEDS: DULoxetine 30 MG Cap PO SCH ×2 (08:09→21:24)
[2018-08-18] MEDS: Lactobacillus Rhamnosus GG (Probiotic) Cap PO SCH ×2 (08:09→21:25)
[2018-08-18] MEDS: Thiamine 100 MG Tab PO SCH (08:10)
[2018-08-18] MEDS: Citalopram 20 MG Tab PO SCH (08:10)
--- NOTE | 2018-08-18 09:23 | PCM.PN ---
- General Info Date of Service: 08/18/18 Subjective Update: Domingo has been stable since yesterday. No further episodes of hallucinations, these episodes seem to be very random and he has shown no other evidence of psychosis. I believe that these episodes are factitious and a result of the patient trying to manipulate the staff. Functional Status: Reports: Tolerating Diet, Ambulating, Urinating - Review of Systems General: Reports: No Symptoms Pulmonary: Reports: No Symptoms Cardiovascular: Reports: No Symptoms Gastrointestinal: Reports: No Symptoms - Patient Data Vitals - Most Recent: Last Vital Signs Temp 95.9 F 08/18/18 07:29 Pulse 80 08/18/18 07:29 Resp 16 08/18/18 07:29 BP 115/78 08/18/18 07:29 Pulse Ox 98 08/18/18 07:29 Orthostatic Blood Pressure [ 107/48 Standing] Orthostatic Blood Pressure [ 107/73 Sitting] Orthostatic Blood Pressure [ 121/83 Supine] Weight - Most Recent: 144 lb 11.2 oz I&O - Last 24 Hours: Intake & Output 08/17/18 08/18/18 08/18/18 22:59 06:59 14:59 Intake Total 1000 Balance 1000 Lab Results Last 24 Hours: Laboratory Results - last 24 hr 08/18/18 Range/Units 05:00 Sodium 136 L (140-148) mmol/L Potassium 3.9 (3.6-5.2) mmol/L Chloride 103 (100-108) mmol/L Carbon Dioxide 25 (21-32) mmol/L Anion Gap 11.9 (5.0-14.0) mmol/L BUN 9 (7-18) mg/dL Creatinine 0.6 L (0.8-1.3) mg/dL Est Cr Clr Drug Dosing 159.53 mL/min Estimated GFR (MDRD) > 60 (>60) Glucose 108 H (74-106) mg/dL Calcium 8.8 (8.5-10.1) mg/dL Total Bilirubin 10.1 H (0.2-1.0) mg/dL AST 137 H (15-37) U/L ALT 276 H (12-78) U/L Alkaline Phosphatase 260 H (46-116) U/L Total Protein 5.8 L (6.4-8.2) g/dL Albumin 2.0 L (3.4-5.0) g/dL Globulin 3.8 H (2.3-3.5) g/dL Albumin/Globulin Ratio 0.5 L (1.2-2.2) Med Orders - Current: Current Medications Citalopram Hydrobromide (Celexa) 20 mg PO DAILY [facility] Last Admin: 08/18/18 08:10 Dose: 20 mg Duloxetine HCl (Cymbalta) 30 mg PO BID [facility] Last Admin: 08/18/18 08:09 Dose: 30 mg Folic Acid (Folic Acid) 1 mg PO DAILY [facility] Last Admin: 08/18/18 08:08 Dose: 1 mg Lactobacillus Rhamnosus (Culturelle) 1 cap PO BID [facility] Last Admin: 08/18/18 08:09 Dose: 1 cap Magnesium Hydroxide (Milk Of Magnesia) 30 ml PO Q12H PRN PRN Reason: Constipation Melatonin (Melatonin) 9 mg PO BEDTIME [facility] Last Admin: 08/17/18 21:51 Dose: 9 mg Nicotine (Habitrol) 14 mg TRDERM DAILY PRN PRN Reason: nicotine craving Last Admin: 08/15/18 19:40 Dose: 14 mg Ondansetron HCl (Zofran Odt) 4 mg PO Q6H PRN PRN Reason: Nausea able to take PO Last Admin: 08/02/18 15:15 Dose: 4 mg Ondansetron HCl (Zofran) 4 mg IV Q6H PRN PRN Reason: Nausea/Vomiting Pantoprazole Sodium (Protonix) 40 mg PO ACBREAKFAST [facility] Last Admin: 08/18/18 08:08 Dose: 40 mg Potassium Chloride (Klor-Con M20) 40 meq PO BID [facility] Last Admin: 08/18/18 08:08 Dose: 40 meq Senna/Docusate Sodium (Senna Plus) 1 tab PO BID PRN PRN Reason: Constipation Thiamine HCl (Vitamin B-1) 100 mg PO DAILY [facility] Last Admin: 08/18/18 08:10 Dose: 100 mg Discontinued Medications Amoxicillin/Clavulanate Potassium (Augmentin 875 Mg/125 Mg) 1 tab PO Q12H [facility] Last Admin: 08/12/18 08:16 Dose: 1 tab Diphenoxylate HCl/Atropine (Lomotil 0.025-2.5 Mg) 1 tab PO Q4H PRN PRN Reason: Diarrhea Last Admin: 08/05/18 20:46 Dose: 1 tab Divalproex Sodium (Divalproex Sodium) 250 mg PO BIDMEALS [facility] Last Admin: 08/09/18 07:40 Dose: 250 mg Duloxetine HCl (Cymbalta) 30 mg PO DAILY [facility] Last Admin: 08/02/18 07:59 Dose: 30 mg Gabapentin (Neurontin) 400 mg PO TID [facility] Last Admin: 07/29/18 10:03 Dose: Not Given Gabapentin (Neurontin) 200 mg PO TID [facility] Last Admin: 08/01/18 13:21 Dose: 200 mg Haloperidol Lactate (Haldol) 2 mg IVPUSH Q4H PRN PRN Reason: Agitation Last Admin: 07/28/18 01:45 Dose: 2 mg Haloperidol Lactate (Haldol) 5 mg IM ONETIME [facility] Stop: 07/30/18 06:02 Last Admin: 07/30/18 06:16 Dose: 5 mg Hydromorphone HCl (Dilaudid) 0.5 mg IVPUSH Q2H PRN PRN Reason: Headache Last Admin: 08/03/18 01:19 Dose: 0.5 mg Multivitamins/Minerals 10 ml/Thiamine HCl 100 mg/ Folic Acid 1 mg/ Magnesium Sulfate 3 gm/ Sodium Chloride 1,017.2 mls @ 1,000 mls/hr IV ASDIRECTED [facility] Multivitamins/Minerals 10 ml/Thiamine HCl 100 mg/ Folic Acid 1 mg/ Magnesium Sulfate 3 gm/ Sodium Chloride 1,017.2 mls @ 500 mls/hr IV ASDIRECTED ONE Stop: 07/24/18 19:02 Last Admin: 07/24/18 17:03 Dose: 500 mls/hr Dextrose/Sodium Chloride (Dextrose 5%-Normal Saline) 1,000 mls @ 125 mls/hr IV ASDIRECTED [facility] Last Admin: 07/26/18 10:23 Dose: 125 mls/hr Potassium Chloride 20 meq/Lidocaine HCl 2 ml/ Sodium Chloride 112 mls @ 50 mls/ hr IV Q2H [facility] Stop: 07/24/18 22:03 Last Admin: 07/24/18 22:00 Dose: 50 mls/hr Potassium Chloride (Kcl 20 Meq In Water 100 Ml) Confirm Administered Dose 200 mls @ as directed .ROUTE .STK-MED ONE Stop: 07/24/18 19:43 Last Admin: 07/24/18 19:49 Dose: Not Given Potassium Chloride 20 meq/ (Premix) 0 mls @ 50 mls/hr IV ONETIME ONE Stop: 07/25/18 06:00 Last Admin: 07/25/18 10:06 Dose: Not Given Potassium Chloride (Kcl 20 Meq In Water 100 Ml) 100 mls @ 50 mls/hr IV Q2H [facility] Stop: 07/25/18 10:59 Last Admin: 07/25/18 09:02 Dose: 50 mls/hr Potassium Chloride 20 meq/Lidocaine HCl 2 ml/ Sodium Chloride 112 mls @ 50 mls/ hr IV Q2H [facility] Stop: 07/25/18 18:29 Last Admin: 07/25/18 17:11 Dose: 50 mls/hr Potassium Chloride 20 meq/Lidocaine HCl 2 ml/ Sodium Chloride 112 mls @ 56 mls/ hr IV Q2H [facility] Stop: 07/26/18 13:29 Last Admin: 07/26/18 12:31 Dose: 56 mls/hr Potassium Chloride/Dextrose/Sod Cl (D5 1/2 Ns W/ 20 Meq/L Kcl) 1,000 mls @ 75 mls/hr IV ASDIRECTED [facility] Last Admin: 07/27/18 03:56 Dose: 75 mls/hr Potassium Chloride/Dextrose/Sod Cl (D5 1/2 Ns W/ 20 Meq/L Kcl) 1,000 mls @ 50 mls/hr IV ASDIRECTED [facility] Last Admin: 07/29/18 18:36 Dose: 50 mls/hr Potassium Chloride 20 meq/Lidocaine HCl 2 ml/ Sodium Chloride 112 mls @ 50 mls/ hr IV Q2H [facility] Stop: 07/28/18 13:59 Last Admin: 07/28/18 12:23 Dose: 50 mls/hr Sodium Chloride (Normal Saline) 500 mls @ 500 mls/hr IV .BOLUS ONE Stop: 07/28/18 19:36 Last Admin: 07/28/18 18:40 Dose: 500 mls/hr Potassium Chloride 20 meq/ (Premix) 100 mls @ 50 mls/hr IV Q2H [facility] Stop: 07/31/18 08:00 Last Admin: 07/31/18 06:35 Dose: 50 mls/hr Potassium Chloride 20 meq/Lidocaine HCl 2 ml/ Sodium Chloride 112 mls @ 56 mls/ hr IV ONETIME ONE Stop: 07/31/18 10:29 Last Admin: 07/31/18 08:27 Dose: 56 mls/hr Sodium Chloride (Normal Saline) 1,000 mls @ 125 mls/hr IV ASDIRECTED [facility] Last Admin: 08/01/18 03:23 Dose: 125 mls/hr Ampicillin Sodium/Sulbactam (Sodium 1.5 gm/ Sodium Chloride) 50 mls @ 100 mls/ hr IV Q6H [facility] Last Admin: 08/07/18 04:32 Dose: 100 mls/hr Ibuprofen (Motrin) 600 mg PO Q6H PRN PRN Reason: Pain/Fever Last Admin: 08/03/18 03:03 Dose: 600 mg Ketorolac Tromethamine (Toradol) 30 mg IVPUSH Q6H PRN PRN Reason: Pain Stop: 08/08/18 08:36 Last Admin: 08/03/18 19:52 Dose: 30 mg Lidocaine HCl (Xylocaine-Mpf 1%) 2 ml INJECT ONETIME ONE Stop: 07/25/18 06:02 Last Admin: 07/25/18 06:32 Dose: 2 ml Lidocaine HCl (Xylocaine-Mpf 1%) 2 ml INJECT ONETIME ONE Stop: 07/31/18 05:56 Last Admin: 07/31/18 06:41 Dose: 2 ml Loperamide HCl (Imodium) 2 mg PO Q4H PRN PRN Reason: Diarrhea Last Admin: 07/31/18 10:17 Dose: 2 mg Lorazepam (Ativan) 0 mg PO ASDIRECTED [facility]; Protocol Last Admin: 07/29/18 15:46 Dose: 1 mg Lorazepam (Ativan) 0 mg IV ASDIRECTED [facility]; Protocol Last Admin: 07/28/18 08:13 Dose: 2 mg Lorazepam (Ativan) 2 mg IVPUSH ASDIRECTED PRN PRN Reason: Seizures Last Admin: 07/28/18 09:00 Dose: 2 mg Lorazepam (Ativan) 1 mg PO ONETIME ONE Stop: 08/03/18 22:34 Last Admin: 08/03/18 22:51 Dose: 1 mg Nicotine (Habitrol) 14 mg TRDERM DAILY [facility] Last Admin: 08/09/18 08:20 Dose: Not Given Pantoprazole Sodium (Protonix Iv) 40 mg IV DAILY [facility] Last Admin: 07/24/18 19:52 Dose: 40 mg Pantoprazole Sodium (Protonix Iv) 40 mg IV Q24H [facility] Last Admin: 07/26/18 16:11 Dose: 40 mg Potassium Chloride (Klor-Con M20) 40 meq PO ONETIME ONE Stop: 07/31/18 06:01 Last Admin: 07/31/18 06:31 Dose: 40 meq Potassium Chloride (Klor-Con M20) 40 meq PO ONETIME ONE Stop: 07/31/18 12:01 Last Admin: 07/31/18 11:58 Dose: 40 meq Potassium Chloride (Klor-Con M20) 40 meq PO ONETIME ONE Stop: 08/01/18 09:01 Last Admin: 08/01/18 08:22 Dose: 40 meq Potassium Chloride (Klor-Con M20) 40 meq PO ONETIME ONE Stop: 08/01/18 12:01 Last Admin: 08/01/18 11:18 Dose: 40 meq Potassium Chloride (Klor-Con M20) 40 meq PO ONETIME ONE Stop: 08/01/18 17:01 Last Admin: 08/01/18 17:03 Dose: 40 meq Potassium Chloride (Klor-Con M20) 40 meq PO ONETIME ONE Stop: 08/03/18 09:01 Last Admin: 08/03/18 09:57 Dose: 40 meq Potassium Chloride (Klor-Con M20) 40 meq PO ONETIME ONE Stop: 08/03/18 17:01 Last Admin: 08/03/18 16:22 Dose: 40 meq Potassium Chloride (Klor-Con M20) 40 meq PO ONETIME ONE Stop: 08/05/18 11:31 Last Admin: 08/05/18 11:24 Dose: 40 meq Potassium Chloride (Klor-Con M20) 40 meq PO ONETIME ONE Stop: 08/05/18 17:01 Last Admin: 08/05/18 16:49 Dose: 40 meq Potassium Chloride (Klor-Con M20) 40 meq PO BID [facility] Stop: 08/07/18 21:01 Last Admin: 08/07/18 20:55 Dose: 40 meq Potassium Chloride (Klor-Con M20) 40 meq PO ONETIME ONE Stop: 08/08/18 09:01 Last Admin: 08/08/18 09:59 Dose: 40 meq Potassium Chloride (Klor-Con M20) 40 meq PO ONETIME ONE Stop: 08/10/18 06:59 Last Admin: 08/10/18 07:10 Dose: 40 meq Potassium Chloride (Klor-Con M20) 40 meq PO TID [facility] Last Admin: 08/12/18 08:16 Dose: 40 meq Potassium Chloride (Klor-Con M20) 40 meq PO DAILY [facility] Last Admin: 08/17/18 08:25 Dose: 40 meq Potassium Chloride (Klor-Con M20) 40 meq PO ONETIME ONE Stop: 08/13/18 08:32 Last Admin: 08/13/18 08:44 Dose: 40 meq Potassium Chloride (Klor-Con M20) 40 meq PO ONETIME ONE Stop: 08/13/18 12:01 Last Admin: 08/13/18 11:44 Dose: 40 meq Potassium Chloride (Klor-Con M20) 40 meq PO ONETIME ONE Stop: 08/13/18 17:01 Last Admin: 08/13/18 16:26 Dose: 40 meq Potassium Chloride (Klor-Con M20) 40 meq PO ONETIME ONE Stop: 08/15/18 09:01 Last Admin: 08/15/18 08:57 Dose: 40 meq Potassium Chloride (Klor-Con M20) 40 meq PO ONETIME ONE Stop: 08/16/18 12:01 Last Admin: 08/16/18 12:07 Dose: 40 meq Potassium Chloride (Klor-Con M20) 40 meq PO ONETIME ONE Stop: 08/16/18 17:01 Last Admin: 08/16/18 17:03 Dose: 40 meq Potassium Chloride (Klor-Con M20) 40 meq PO ONETIME ONE Stop: 08/17/18 10:01 Last Admin: 08/17/18 09:58 Dose: 40 meq Prednisolone (Orapred 15 Mg/5ml Soln) 40 mg PO DAILY [facility] Last Admin: 08/16/18 08:18 Dose: 40 mg Quetiapine Fumarate (Seroquel) 25 mg PO BID [facility] Last Admin: 08/16/18 08:13 Dose: 25 mg Vancomycin HCl (Vancocin 250 Mg/5 Ml Soln) 250 mg PO Q6HR [facility] Last Admin: 08/06/18 10:58 Dose: 250 mg Vancomycin HCl (Vancocin 250 Mg/5 Ml Soln) 125 mg PO Q6HR [facility] Stop: 08/17/18 22:30 Last Admin: 08/17/18 21:51 Dose: 125 mg - Exam Quality Assessment: DVT Prophylaxis General: Alert, Oriented, Cooperative, No Acute Distress HEENT: Scleral Icterus Lungs: Clear to Auscultation, Normal Respiratory Effort Cardiovascular: Regular Rate, Regular Rhythm, No Murmurs GI/Abdominal Exam: Soft, Non-Tender, No Organomegaly, No Distention Skin: Other (Jaundice) - Problem List & Annotations (1) Alcohol withdrawal delirium, acute, hypoactive SNOMED Code(s): 4893014, 76696615 Code(s): F10.231 - ALCOHOL DEPENDENCE WITH WITHDRAWAL DELIRIUM Status: Acute Current Visit: Yes (2) Clostridium difficile colitis SNOMED Code(s): 067541760 Code(s): A04.72 - ENTEROCOLITIS D/T CLOSTRIDIUM DIFFICILE, NOT SPCF RECUR Status: Acute Current Visit: Yes (3) Alcohol abuse SNOMED Code(s): 99627250 Code(s): F10.10 - ALCOHOL ABUSE, UNCOMPLICATED Status: Acute Current Visit: Yes (4) Dehydration SNOMED Code(s): 61194846 Code(s): E86.0 - DEHYDRATION Status: Acute Current Visit: Yes (5) Alcoholic cirrhosis of liver SNOMED Code(s): 999053480 Code(s): K70.30 - ALCOHOLIC CIRRHOSIS OF LIVER WITHOUT ASCITES Status: Acute Current Visit: Yes Qualifiers: Ascites presence: unspecified Qualified Code(s): K70.30 - Alcoholic cirrhosis of liver without ascites (6) Alcoholic hepatitis SNOMED Code(s): 697441649 Code(s): K70.10 - ALCOHOLIC HEPATITIS WITHOUT ASCITES Status: Acute Current Visit: Yes - Problem List Review Problem List Initiated/Reviewed/Updated: Yes - My Orders Last 24 Hours: My Active Orders 08/17/18 21:00 Potassium Chloride [Klor-Con M20] 40 meq PO BID - Plan Plan:: ASSESSMENT AND PLAN - Alcoholic hepatitis/cirrhosis - bilirubin stable from yesterday at 10.1. Appetite and energy level improving. Acute acalculous cholecystitis, resolved - stable now that he has completed antibiotic therapy, no fevers or abdominal pain. Clostridium difficile colitis - diarrhea resolved, he has completed his course of antibiotic therapy Alcohol abuse - alcohol withdrawal has resolved. He has been legally committed by the state and will be mandated to state alcohol treatment. Severe anxiety -Citalopram 20 mg by mouth daily Hypokalemia - potassium level normal today Tobacco dependence - no interest in quitting at this time. Current cigarette allowance is 3 per day. -Nicotine patch Maintenance issues - - DVT prophylaxis - mechanical - GI prophylaxis - PPI - Nutrition - regular diet Disposition - I would anticipate discharge to inpatient alcohol treatment after the hospital stay
[2018-08-18] MEDS: Melatonin 3 MG Tab PO SCH (21:25)
[2018-08-19] MEDS: Pantoprazole 40 MG Tab.CR PO SCH (07:49)
[2018-08-19] MEDS: Lactobacillus Rhamnosus GG (Probiotic) Cap PO SCH (08:19)
[2018-08-19] MEDS: Thiamine 100 MG Tab PO SCH (08:19)
[2018-08-19] MEDS: Citalopram 20 MG Tab PO SCH (08:19)
[2018-08-19] MEDS: DULoxetine 30 MG Cap PO SCH (08:19)
[2018-08-19] MEDS: Potassium Chloride 20 MEQ Tab.ER PO SCH (08:19)
[2018-08-19] MEDS: Folic Acid 1 MG Tab PO SCH (08:19)
--- NOTE | 2018-08-19 09:33 | PCM.PN ---
- General Info Date of Service: 08/19/18 Subjective Update: Domingo has been stable over the last 24 hours, good vital signs and no significant temperature elevations. Functional Status: Reports: Tolerating Diet, Ambulating, Urinating - Review of Systems General: Denies: Fever, Weakness, Fatigue, Chills Pulmonary: Reports: No Symptoms Cardiovascular: Reports: No Symptoms Gastrointestinal: Reports: No Symptoms Skin: Reports: Jaundice - Patient Data Vitals - Most Recent: Last Vital Signs Temp 97.4 F 08/19/18 07:45 Pulse 100 08/19/18 07:45 Resp 12 08/19/18 07:45 BP 147/96 H 08/19/18 07:45 Pulse Ox 100 08/19/18 07:45 Orthostatic Blood Pressure [ 107/48 Standing] Orthostatic Blood Pressure [ 107/73 Sitting] Orthostatic Blood Pressure [ 121/83 Supine] Weight - Most Recent: 144 lb 11.2 oz I&O - Last 24 Hours: Intake & Output 08/18/18 08/19/18 08/19/18 22:59 06:59 14:59 Intake Total 480 Balance 480 Med Orders - Current: Current Medications Citalopram Hydrobromide (Celexa) 20 mg PO DAILY [facility] Last Admin: 08/19/18 08:19 Dose: 20 mg Duloxetine HCl (Cymbalta) 30 mg PO BID [facility] Last Admin: 08/19/18 08:19 Dose: 30 mg Folic Acid (Folic Acid) 1 mg PO DAILY [facility] Last Admin: 08/19/18 08:19 Dose: 1 mg Lactobacillus Rhamnosus (Culturelle) 1 cap PO BID [facility] Last Admin: 08/19/18 08:19 Dose: 1 cap Magnesium Hydroxide (Milk Of Magnesia) 30 ml PO Q12H PRN PRN Reason: Constipation Melatonin (Melatonin) 9 mg PO BEDTIME [facility] Last Admin: 08/18/18 21:25 Dose: 9 mg Nicotine (Habitrol) 14 mg TRDERM DAILY PRN PRN Reason: nicotine craving Last Admin: 08/15/18 19:40 Dose: 14 mg Ondansetron HCl (Zofran Odt) 4 mg PO Q6H PRN PRN Reason: Nausea able to take PO Last Admin: 08/02/18 15:15 Dose: 4 mg Ondansetron HCl (Zofran) 4 mg IV Q6H PRN PRN Reason: Nausea/Vomiting Pantoprazole Sodium (Protonix) 40 mg PO ACBREAKFAST [facility] Last Admin: 08/19/18 07:49 Dose: 40 mg Potassium Chloride (Klor-Con M20) 40 meq PO BID [facility] Last Admin: 08/19/18 08:19 Dose: 40 meq Senna/Docusate Sodium (Senna Plus) 1 tab PO BID PRN PRN Reason: Constipation Thiamine HCl (Vitamin B-1) 100 mg PO DAILY [facility] Last Admin: 08/19/18 08:19 Dose: 100 mg Discontinued Medications Amoxicillin/Clavulanate Potassium (Augmentin 875 Mg/125 Mg) 1 tab PO Q12H [facility] Last Admin: 08/12/18 08:16 Dose: 1 tab Diphenoxylate HCl/Atropine (Lomotil 0.025-2.5 Mg) 1 tab PO Q4H PRN PRN Reason: Diarrhea Last Admin: 08/05/18 20:46 Dose: 1 tab Divalproex Sodium (Divalproex Sodium) 250 mg PO BIDMEALS [facility] Last Admin: 08/09/18 07:40 Dose: 250 mg Duloxetine HCl (Cymbalta) 30 mg PO DAILY [facility] Last Admin: 08/02/18 07:59 Dose: 30 mg Gabapentin (Neurontin) 400 mg PO TID [facility] Last Admin: 07/29/18 10:03 Dose: Not Given Gabapentin (Neurontin) 200 mg PO TID [facility] Last Admin: 08/01/18 13:21 Dose: 200 mg Haloperidol Lactate (Haldol) 2 mg IVPUSH Q4H PRN PRN Reason: Agitation Last Admin: 07/28/18 01:45 Dose: 2 mg Haloperidol Lactate (Haldol) 5 mg IM ONETIME STA Stop: 07/30/18 06:02 Last Admin: 07/30/18 06:16 Dose: 5 mg Hydromorphone HCl (Dilaudid) 0.5 mg IVPUSH Q2H PRN PRN Reason: Headache Last Admin: 08/03/18 01:19 Dose: 0.5 mg Multivitamins/Minerals 10 ml/Thiamine HCl 100 mg/ Folic Acid 1 mg/ Magnesium Sulfate 3 gm/ Sodium Chloride 1,017.2 mls @ 1,000 mls/hr IV ASDIRECTED [facility] Multivitamins/Minerals 10 ml/Thiamine HCl 100 mg/ Folic Acid 1 mg/ Magnesium Sulfate 3 gm/ Sodium Chloride 1,017.2 mls @ 500 mls/hr IV ASDIRECTED ONE Stop: 07/24/18 19:02 Last Admin: 07/24/18 17:03 Dose: 500 mls/hr Dextrose/Sodium Chloride (Dextrose 5%-Normal Saline) 1,000 mls @ 125 mls/hr IV ASDIRECTED [facility] Last Admin: 07/26/18 10:23 Dose: 125 mls/hr Potassium Chloride 20 meq/Lidocaine HCl 2 ml/ Sodium Chloride 112 mls @ 50 mls/ hr IV Q2H [facility] Stop: 07/24/18 22:03 Last Admin: 07/24/18 22:00 Dose: 50 mls/hr Potassium Chloride (Kcl 20 Meq In Water 100 Ml) Confirm Administered Dose 200 mls @ as directed .ROUTE .STK-MED ONE Stop: 07/24/18 19:43 Last Admin: 07/24/18 19:49 Dose: Not Given Potassium Chloride 20 meq/ (Premix) 0 mls @ 50 mls/hr IV ONETIME ONE Stop: 07/25/18 06:00 Last Admin: 07/25/18 10:06 Dose: Not Given Potassium Chloride (Kcl 20 Meq In Water 100 Ml) 100 mls @ 50 mls/hr IV Q2H [facility] Stop: 07/25/18 10:59 Last Admin: 07/25/18 09:02 Dose: 50 mls/hr Potassium Chloride 20 meq/Lidocaine HCl 2 ml/ Sodium Chloride 112 mls @ 50 mls/ hr IV Q2H [facility] Stop: 07/25/18 18:29 Last Admin: 07/25/18 17:11 Dose: 50 mls/hr Potassium Chloride 20 meq/Lidocaine HCl 2 ml/ Sodium Chloride 112 mls @ 56 mls/ hr IV Q2H [facility] Stop: 07/26/18 13:29 Last Admin: 07/26/18 12:31 Dose: 56 mls/hr Potassium Chloride/Dextrose/Sod Cl (D5 1/2 Ns W/ 20 Meq/L Kcl) 1,000 mls @ 75 mls/hr IV ASDIRECTED [facility] Last Admin: 07/27/18 03:56 Dose: 75 mls/hr Potassium Chloride/Dextrose/Sod Cl (D5 1/2 Ns W/ 20 Meq/L Kcl) 1,000 mls @ 50 mls/hr IV ASDIRECTED [facility] Last Admin: 07/29/18 18:36 Dose: 50 mls/hr Potassium Chloride 20 meq/Lidocaine HCl 2 ml/ Sodium Chloride 112 mls @ 50 mls/ hr IV Q2H [facility] Stop: 07/28/18 13:59 Last Admin: 07/28/18 12:23 Dose: 50 mls/hr Sodium Chloride (Normal Saline) 500 mls @ 500 mls/hr IV .BOLUS ONE Stop: 07/28/18 19:36 Last Admin: 07/28/18 18:40 Dose: 500 mls/hr Potassium Chloride 20 meq/ (Premix) 100 mls @ 50 mls/hr IV Q2H [facility] Stop: 07/31/18 08:00 Last Admin: 07/31/18 06:35 Dose: 50 mls/hr Potassium Chloride 20 meq/Lidocaine HCl 2 ml/ Sodium Chloride 112 mls @ 56 mls/ hr IV ONETIME ONE Stop: 07/31/18 10:29 Last Admin: 07/31/18 08:27 Dose: 56 mls/hr Sodium Chloride (Normal Saline) 1,000 mls @ 125 mls/hr IV ASDIRECTED [facility] Last Admin: 08/01/18 03:23 Dose: 125 mls/hr Ampicillin Sodium/Sulbactam (Sodium 1.5 gm/ Sodium Chloride) 50 mls @ 100 mls/ hr IV Q6H [facility] Last Admin: 08/07/18 04:32 Dose: 100 mls/hr Ibuprofen (Motrin) 600 mg PO Q6H PRN PRN Reason: Pain/Fever Last Admin: 08/03/18 03:03 Dose: 600 mg Ketorolac Tromethamine (Toradol) 30 mg IVPUSH Q6H PRN PRN Reason: Pain Stop: 08/08/18 08:36 Last Admin: 08/03/18 19:52 Dose: 30 mg Lidocaine HCl (Xylocaine-Mpf 1%) 2 ml INJECT ONETIME ONE Stop: 07/25/18 06:02 Last Admin: 07/25/18 06:32 Dose: 2 ml Lidocaine HCl (Xylocaine-Mpf 1%) 2 ml INJECT ONETIME ONE Stop: 07/31/18 05:56 Last Admin: 07/31/18 06:41 Dose: 2 ml Loperamide HCl (Imodium) 2 mg PO Q4H PRN PRN Reason: Diarrhea Last Admin: 07/31/18 10:17 Dose: 2 mg Lorazepam (Ativan) 0 mg PO ASDIRECTED [facility]; Protocol Last Admin: 07/29/18 15:46 Dose: 1 mg Lorazepam (Ativan) 0 mg IV ASDIRECTED [facility]; Protocol Last Admin: 07/28/18 08:13 Dose: 2 mg Lorazepam (Ativan) 2 mg IVPUSH ASDIRECTED PRN PRN Reason: Seizures Last Admin: 07/28/18 09:00 Dose: 2 mg Lorazepam (Ativan) 1 mg PO ONETIME ONE Stop: 08/03/18 22:34 Last Admin: 08/03/18 22:51 Dose: 1 mg Nicotine (Habitrol) 14 mg TRDERM DAILY [facility] Last Admin: 08/09/18 08:20 Dose: Not Given Pantoprazole Sodium (Protonix Iv) 40 mg IV DAILY [facility] Last Admin: 07/24/18 19:52 Dose: 40 mg Pantoprazole Sodium (Protonix Iv) 40 mg IV Q24H [facility] Last Admin: 07/26/18 16:11 Dose: 40 mg Potassium Chloride (Klor-Con M20) 40 meq PO ONETIME ONE Stop: 07/31/18 06:01 Last Admin: 07/31/18 06:31 Dose: 40 meq Potassium Chloride (Klor-Con M20) 40 meq PO ONETIME ONE Stop: 07/31/18 12:01 Last Admin: 07/31/18 11:58 Dose: 40 meq Potassium Chloride (Klor-Con M20) 40 meq PO ONETIME ONE Stop: 08/01/18 09:01 Last Admin: 08/01/18 08:22 Dose: 40 meq Potassium Chloride (Klor-Con M20) 40 meq PO ONETIME ONE Stop: 08/01/18 12:01 Last Admin: 08/01/18 11:18 Dose: 40 meq Potassium Chloride (Klor-Con M20) 40 meq PO ONETIME ONE Stop: 08/01/18 17:01 Last Admin: 08/01/18 17:03 Dose: 40 meq Potassium Chloride (Klor-Con M20) 40 meq PO ONETIME ONE Stop: 08/03/18 09:01 Last Admin: 08/03/18 09:57 Dose: 40 meq Potassium Chloride (Klor-Con M20) 40 meq PO ONETIME ONE Stop: 08/03/18 17:01 Last Admin: 08/03/18 16:22 Dose: 40 meq Potassium Chloride (Klor-Con M20) 40 meq PO ONETIME ONE Stop: 08/05/18 11:31 Last Admin: 08/05/18 11:24 Dose: 40 meq Potassium Chloride (Klor-Con M20) 40 meq PO ONETIME ONE Stop: 08/05/18 17:01 Last Admin: 08/05/18 16:49 Dose: 40 meq Potassium Chloride (Klor-Con M20) 40 meq PO BID [facility] Stop: 08/07/18 21:01 Last Admin: 08/07/18 20:55 Dose: 40 meq Potassium Chloride (Klor-Con M20) 40 meq PO ONETIME ONE Stop: 08/08/18 09:01 Last Admin: 08/08/18 09:59 Dose: 40 meq Potassium Chloride (Klor-Con M20) 40 meq PO ONETIME ONE Stop: 08/10/18 06:59 Last Admin: 08/10/18 07:10 Dose: 40 meq Potassium Chloride (Klor-Con M20) 40 meq PO TID [facility] Last Admin: 08/12/18 08:16 Dose: 40 meq Potassium Chloride (Klor-Con M20) 40 meq PO DAILY [facility] Last Admin: 08/17/18 08:25 Dose: 40 meq Potassium Chloride (Klor-Con M20) 40 meq PO ONETIME ONE Stop: 08/13/18 08:32 Last Admin: 08/13/18 08:44 Dose: 40 meq Potassium Chloride (Klor-Con M20) 40 meq PO ONETIME ONE Stop: 08/13/18 12:01 Last Admin: 08/13/18 11:44 Dose: 40 meq Potassium Chloride (Klor-Con M20) 40 meq PO ONETIME ONE Stop: 08/13/18 17:01 Last Admin: 08/13/18 16:26 Dose: 40 meq Potassium Chloride (Klor-Con M20) 40 meq PO ONETIME ONE Stop: 08/15/18 09:01 Last Admin: 08/15/18 08:57 Dose: 40 meq Potassium Chloride (Klor-Con M20) 40 meq PO ONETIME ONE Stop: 08/16/18 12:01 Last Admin: 08/16/18 12:07 Dose: 40 meq Potassium Chloride (Klor-Con M20) 40 meq PO ONETIME ONE Stop: 08/16/18 17:01 Last Admin: 08/16/18 17:03 Dose: 40 meq Potassium Chloride (Klor-Con M20) 40 meq PO ONETIME ONE Stop: 08/17/18 10:01 Last Admin: 08/17/18 09:58 Dose: 40 meq Prednisolone (Orapred 15 Mg/5ml Soln) 40 mg PO DAILY [facility] Last Admin: 08/16/18 08:18 Dose: 40 mg Quetiapine Fumarate (Seroquel) 25 mg PO BID [facility] Last Admin: 08/16/18 08:13 Dose: 25 mg Vancomycin HCl (Vancocin 250 Mg/5 Ml Soln) 250 mg PO Q6HR [facility] Last Admin: 08/06/18 10:58 Dose: 250 mg Vancomycin HCl (Vancocin 250 Mg/5 Ml Soln) 125 mg PO Q6HR [facility] Stop: 08/17/18 22:30 Last Admin: 08/17/18 21:51 Dose: 125 mg - Exam Quality Assessment: DVT Prophylaxis General: Alert, Oriented, Cooperative, No Acute Distress HEENT: Scleral Icterus Lungs: Clear to Auscultation, Normal Respiratory Effort Cardiovascular: Regular Rate, Regular Rhythm, No Murmurs GI/Abdominal Exam: Soft, Non-Tender, No Organomegaly, No Distention Skin: Other (Jaundice) - Problem List & Annotations (1) Alcohol withdrawal delirium, acute, hypoactive SNOMED Code(s): 1512133, 68652046 Code(s): F10.231 - ALCOHOL DEPENDENCE WITH WITHDRAWAL DELIRIUM Status: Acute Current Visit: Yes (2) Clostridium difficile colitis SNOMED Code(s): 428903945 Code(s): A04.72 - ENTEROCOLITIS D/T CLOSTRIDIUM DIFFICILE, NOT SPCF RECUR Status: Acute Current Visit: Yes (3) Alcohol abuse SNOMED Code(s): 82069174 Code(s): F10.10 - ALCOHOL ABUSE, UNCOMPLICATED Status: Acute Current Visit: Yes (4) Dehydration SNOMED Code(s): 24850036 Code(s): E86.0 - DEHYDRATION Status: Acute Current Visit: Yes (5) Alcoholic cirrhosis of liver SNOMED Code(s): 368695406 Code(s): K70.30 - ALCOHOLIC CIRRHOSIS OF LIVER WITHOUT ASCITES Status: Acute Current Visit: Yes Qualifiers: Ascites presence: unspecified Qualified Code(s): K70.30 - Alcoholic cirrhosis of liver without ascites (6) Alcoholic hepatitis SNOMED Code(s): 701494397 Code(s): K70.10 - ALCOHOLIC HEPATITIS WITHOUT ASCITES Status: Acute Current Visit: Yes - Problem List Review Problem List Initiated/Reviewed/Updated: Yes - Plan Plan:: ASSESSMENT AND PLAN - Alcoholic hepatitis/cirrhosis - bilirubin stable at 10.1. Appetite and energy level improving. Acute acalculous cholecystitis, resolved - stable now that he has completed antibiotic therapy, no fevers or abdominal pain. Clostridium difficile colitis - diarrhea resolved, he has completed his course of antibiotic therapy Alcohol abuse - alcohol withdrawal has resolved. He has been legally committed by the state and will be mandated to state alcohol treatment. Severe anxiety -Citalopram 20 mg by mouth daily Hypokalemia - potassium level normal today Tobacco dependence - no interest in quitting at this time. Current cigarette allowance is 3 per day. -Nicotine patch Maintenance issues - - DVT prophylaxis - mechanical - GI prophylaxis - PPI - Nutrition - regular diet Disposition - I would anticipate discharge to inpatient alcohol treatment after the hospital stay
[2018-08-20] MEDS: DULoxetine 30 MG Cap PO SCH ×4 (06:20→20:50)
[2018-08-20] MEDS: Potassium Chloride 20 MEQ Tab.ER PO SCH ×4 (06:20→20:50)
[2018-08-20] MEDS: Lactobacillus Rhamnosus GG (Probiotic) Cap PO SCH ×4 (06:20→20:50)
[2018-08-20] MEDS: Melatonin 3 MG Tab PO SCH ×2 (06:20→20:50)
[2018-08-20] MEDS: Pantoprazole 40 MG Tab.CR PO SCH (07:40)
[2018-08-20] MEDS: Thiamine 100 MG Tab PO SCH ×2 (07:41→08:23)
[2018-08-20] MEDS: Citalopram 20 MG Tab PO SCH ×2 (07:41→08:22)
[2018-08-20] MEDS: Folic Acid 1 MG Tab PO SCH ×2 (07:43→08:23)
--- NOTE | 2018-08-20 09:27 | PCM.PN ---
- General Info Date of Service: 08/20/18 Subjective Update: There were no acute events overnight. Patient has not had any fevers. No complaints of diarrhea or abdominal pain. Appetite has been good. No difficulties walking out to smoke. No hallucinations. Functional Status: Reports: Pain Controlled, Tolerating Diet - Review of Systems General: Denies: Fever Gastrointestinal: Denies: Diarrhea - Patient Data Vitals - Most Recent: Last Vital Signs Temp 35.7 C 08/20/18 07:37 Pulse 89 08/20/18 07:37 Resp 16 08/20/18 07:37 BP 125/76 08/20/18 07:37 Pulse Ox 98 08/20/18 07:37 Orthostatic Blood Pressure [ 107/48 Standing] Orthostatic Blood Pressure [ 107/73 Sitting] Orthostatic Blood Pressure [ 121/83 Supine] Weight - Most Recent: 65.635 kg Med Orders - Current: Current Medications Citalopram Hydrobromide (Celexa) 20 mg PO DAILY [facility] Last Admin: 08/20/18 08:22 Dose: Not Given Duloxetine HCl (Cymbalta) 30 mg PO BID [facility] Last Admin: 08/20/18 08:23 Dose: Not Given Folic Acid (Folic Acid) 1 mg PO DAILY [facility] Last Admin: 08/20/18 08:23 Dose: Not Given Lactobacillus Rhamnosus (Culturelle) 1 cap PO BID [facility] Last Admin: 08/20/18 08:23 Dose: Not Given Magnesium Hydroxide (Milk Of Magnesia) 30 ml PO Q12H PRN PRN Reason: Constipation Melatonin (Melatonin) 9 mg PO BEDTIME [facility] Last Admin: 08/20/18 06:20 Dose: Not Given Nicotine (Habitrol) 14 mg TRDERM DAILY PRN PRN Reason: nicotine craving Last Admin: 08/15/18 19:40 Dose: 14 mg Ondansetron HCl (Zofran Odt) 4 mg PO Q6H PRN PRN Reason: Nausea able to take PO Last Admin: 08/02/18 15:15 Dose: 4 mg Ondansetron HCl (Zofran) 4 mg IV Q6H PRN PRN Reason: Nausea/Vomiting Pantoprazole Sodium (Protonix) 40 mg PO ACBREAKFAST [facility] Last Admin: 08/20/18 07:40 Dose: 40 mg Potassium Chloride (Klor-Con M20) 40 meq PO BID [facility] Last Admin: 08/20/18 08:23 Dose: Not Given Senna/Docusate Sodium (Senna Plus) 1 tab PO BID PRN PRN Reason: Constipation Thiamine HCl (Vitamin B-1) 100 mg PO DAILY [facility] Last Admin: 08/20/18 08:23 Dose: Not Given Discontinued Medications Amoxicillin/Clavulanate Potassium (Augmentin 875 Mg/125 Mg) 1 tab PO Q12H [facility] Last Admin: 08/12/18 08:16 Dose: 1 tab Diphenoxylate HCl/Atropine (Lomotil 0.025-2.5 Mg) 1 tab PO Q4H PRN PRN Reason: Diarrhea Last Admin: 08/05/18 20:46 Dose: 1 tab Divalproex Sodium (Divalproex Sodium) 250 mg PO BIDMEALS [facility] Last Admin: 08/09/18 07:40 Dose: 250 mg Duloxetine HCl (Cymbalta) 30 mg PO DAILY [facility] Last Admin: 08/02/18 07:59 Dose: 30 mg Gabapentin (Neurontin) 400 mg PO TID [facility] Last Admin: 07/29/18 10:03 Dose: Not Given Gabapentin (Neurontin) 200 mg PO TID [facility] Last Admin: 08/01/18 13:21 Dose: 200 mg Haloperidol Lactate (Haldol) 2 mg IVPUSH Q4H PRN PRN Reason: Agitation Last Admin: 07/28/18 01:45 Dose: 2 mg Haloperidol Lactate (Haldol) 5 mg IM ONETIME STA Stop: 07/30/18 06:02 Last Admin: 07/30/18 06:16 Dose: 5 mg Hydromorphone HCl (Dilaudid) 0.5 mg IVPUSH Q2H PRN PRN Reason: Headache Last Admin: 08/03/18 01:19 Dose: 0.5 mg Multivitamins/Minerals 10 ml/Thiamine HCl 100 mg/ Folic Acid 1 mg/ Magnesium Sulfate 3 gm/ Sodium Chloride 1,017.2 mls @ 1,000 mls/hr IV ASDIRECTED [facility] Multivitamins/Minerals 10 ml/Thiamine HCl 100 mg/ Folic Acid 1 mg/ Magnesium Sulfate 3 gm/ Sodium Chloride 1,017.2 mls @ 500 mls/hr IV ASDIRECTED ONE Stop: 07/24/18 19:02 Last Admin: 07/24/18 17:03 Dose: 500 mls/hr Dextrose/Sodium Chloride (Dextrose 5%-Normal Saline) 1,000 mls @ 125 mls/hr IV ASDIRECTED [facility] Last Admin: 07/26/18 10:23 Dose: 125 mls/hr Potassium Chloride 20 meq/Lidocaine HCl 2 ml/ Sodium Chloride 112 mls @ 50 mls/ hr IV Q2H [facility] Stop: 07/24/18 22:03 Last Admin: 07/24/18 22:00 Dose: 50 mls/hr Potassium Chloride (Kcl 20 Meq In Water 100 Ml) Confirm Administered Dose 200 mls @ as directed .ROUTE .STK-MED ONE Stop: 07/24/18 19:43 Last Admin: 07/24/18 19:49 Dose: Not Given Potassium Chloride 20 meq/ (Premix) 0 mls @ 50 mls/hr IV ONETIME ONE Stop: 07/25/18 06:00 Last Admin: 07/25/18 10:06 Dose: Not Given Potassium Chloride (Kcl 20 Meq In Water 100 Ml) 100 mls @ 50 mls/hr IV Q2H [facility] Stop: 07/25/18 10:59 Last Admin: 07/25/18 09:02 Dose: 50 mls/hr Potassium Chloride 20 meq/Lidocaine HCl 2 ml/ Sodium Chloride 112 mls @ 50 mls/ hr IV Q2H [facility] Stop: 07/25/18 18:29 Last Admin: 07/25/18 17:11 Dose: 50 mls/hr Potassium Chloride 20 meq/Lidocaine HCl 2 ml/ Sodium Chloride 112 mls @ 56 mls/ hr IV Q2H [facility] Stop: 07/26/18 13:29 Last Admin: 07/26/18 12:31 Dose: 56 mls/hr Potassium Chloride/Dextrose/Sod Cl (D5 1/2 Ns W/ 20 Meq/L Kcl) 1,000 mls @ 75 mls/hr IV ASDIRECTED [facility] Last Admin: 07/27/18 03:56 Dose: 75 mls/hr Potassium Chloride/Dextrose/Sod Cl (D5 1/2 Ns W/ 20 Meq/L Kcl) 1,000 mls @ 50 mls/hr IV ASDIRECTED [facility] Last Admin: 07/29/18 18:36 Dose: 50 mls/hr Potassium Chloride 20 meq/Lidocaine HCl 2 ml/ Sodium Chloride 112 mls @ 50 mls/ hr IV Q2H [facility] Stop: 07/28/18 13:59 Last Admin: 07/28/18 12:23 Dose: 50 mls/hr Sodium Chloride (Normal Saline) 500 mls @ 500 mls/hr IV .BOLUS ONE Stop: 07/28/18 19:36 Last Admin: 07/28/18 18:40 Dose: 500 mls/hr Potassium Chloride 20 meq/ (Premix) 100 mls @ 50 mls/hr IV Q2H [facility] Stop: 07/31/18 08:00 Last Admin: 07/31/18 06:35 Dose: 50 mls/hr Potassium Chloride 20 meq/Lidocaine HCl 2 ml/ Sodium Chloride 112 mls @ 56 mls/ hr IV ONETIME ONE Stop: 07/31/18 10:29 Last Admin: 07/31/18 08:27 Dose: 56 mls/hr Sodium Chloride (Normal Saline) 1,000 mls @ 125 mls/hr IV ASDIRECTED [facility] Last Admin: 08/01/18 03:23 Dose: 125 mls/hr Ampicillin Sodium/Sulbactam (Sodium 1.5 gm/ Sodium Chloride) 50 mls @ 100 mls/ hr IV Q6H [facility] Last Admin: 08/07/18 04:32 Dose: 100 mls/hr Ibuprofen (Motrin) 600 mg PO Q6H PRN PRN Reason: Pain/Fever Last Admin: 08/03/18 03:03 Dose: 600 mg Ketorolac Tromethamine (Toradol) 30 mg IVPUSH Q6H PRN PRN Reason: Pain Stop: 08/08/18 08:36 Last Admin: 08/03/18 19:52 Dose: 30 mg Lidocaine HCl (Xylocaine-Mpf 1%) 2 ml INJECT ONETIME ONE Stop: 07/25/18 06:02 Last Admin: 07/25/18 06:32 Dose: 2 ml Lidocaine HCl (Xylocaine-Mpf 1%) 2 ml INJECT ONETIME ONE Stop: 07/31/18 05:56 Last Admin: 07/31/18 06:41 Dose: 2 ml Loperamide HCl (Imodium) 2 mg PO Q4H PRN PRN Reason: Diarrhea Last Admin: 07/31/18 10:17 Dose: 2 mg Lorazepam (Ativan) 0 mg PO ASDIRECTED [facility]; Protocol Last Admin: 07/29/18 15:46 Dose: 1 mg Lorazepam (Ativan) 0 mg IV ASDIRECTED [facility]; Protocol Last Admin: 07/28/18 08:13 Dose: 2 mg Lorazepam (Ativan) 2 mg IVPUSH ASDIRECTED PRN PRN Reason: Seizures Last Admin: 07/28/18 09:00 Dose: 2 mg Lorazepam (Ativan) 1 mg PO ONETIME ONE Stop: 08/03/18 22:34 Last Admin: 08/03/18 22:51 Dose: 1 mg Nicotine (Habitrol) 14 mg TRDERM DAILY [facility] Last Admin: 08/09/18 08:20 Dose: Not Given Pantoprazole Sodium (Protonix Iv) 40 mg IV DAILY [facility] Last Admin: 07/24/18 19:52 Dose: 40 mg Pantoprazole Sodium (Protonix Iv) 40 mg IV Q24H [facility] Last Admin: 07/26/18 16:11 Dose: 40 mg Potassium Chloride (Klor-Con M20) 40 meq PO ONETIME ONE Stop: 07/31/18 06:01 Last Admin: 07/31/18 06:31 Dose: 40 meq Potassium Chloride (Klor-Con M20) 40 meq PO ONETIME ONE Stop: 07/31/18 12:01 Last Admin: 07/31/18 11:58 Dose: 40 meq Potassium Chloride (Klor-Con M20) 40 meq PO ONETIME ONE Stop: 08/01/18 09:01 Last Admin: 08/01/18 08:22 Dose: 40 meq Potassium Chloride (Klor-Con M20) 40 meq PO ONETIME ONE Stop: 08/01/18 12:01 Last Admin: 08/01/18 11:18 Dose: 40 meq Potassium Chloride (Klor-Con M20) 40 meq PO ONETIME ONE Stop: 08/01/18 17:01 Last Admin: 08/01/18 17:03 Dose: 40 meq Potassium Chloride (Klor-Con M20) 40 meq PO ONETIME ONE Stop: 08/03/18 09:01 Last Admin: 08/03/18 09:57 Dose: 40 meq Potassium Chloride (Klor-Con M20) 40 meq PO ONETIME ONE Stop: 08/03/18 17:01 Last Admin: 08/03/18 16:22 Dose: 40 meq Potassium Chloride (Klor-Con M20) 40 meq PO ONETIME ONE Stop: 08/05/18 11:31 Last Admin: 08/05/18 11:24 Dose: 40 meq Potassium Chloride (Klor-Con M20) 40 meq PO ONETIME ONE Stop: 08/05/18 17:01 Last Admin: 08/05/18 16:49 Dose: 40 meq Potassium Chloride (Klor-Con M20) 40 meq PO BID [facility] Stop: 08/07/18 21:01 Last Admin: 08/07/18 20:55 Dose: 40 meq Potassium Chloride (Klor-Con M20) 40 meq PO ONETIME ONE Stop: 08/08/18 09:01 Last Admin: 08/08/18 09:59 Dose: 40 meq Potassium Chloride (Klor-Con M20) 40 meq PO ONETIME ONE Stop: 08/10/18 06:59 Last Admin: 08/10/18 07:10 Dose: 40 meq Potassium Chloride (Klor-Con M20) 40 meq PO TID [facility] Last Admin: 08/12/18 08:16 Dose: 40 meq Potassium Chloride (Klor-Con M20) 40 meq PO DAILY [facility] Last Admin: 08/17/18 08:25 Dose: 40 meq Potassium Chloride (Klor-Con M20) 40 meq PO ONETIME ONE Stop: 08/13/18 08:32 Last Admin: 08/13/18 08:44 Dose: 40 meq Potassium Chloride (Klor-Con M20) 40 meq PO ONETIME ONE Stop: 08/13/18 12:01 Last Admin: 08/13/18 11:44 Dose: 40 meq Potassium Chloride (Klor-Con M20) 40 meq PO ONETIME ONE Stop: 08/13/18 17:01 Last Admin: 08/13/18 16:26 Dose: 40 meq Potassium Chloride (Klor-Con M20) 40 meq PO ONETIME ONE Stop: 08/15/18 09:01 Last Admin: 08/15/18 08:57 Dose: 40 meq Potassium Chloride (Klor-Con M20) 40 meq PO ONETIME ONE Stop: 08/16/18 12:01 Last Admin: 08/16/18 12:07 Dose: 40 meq Potassium Chloride (Klor-Con M20) 40 meq PO ONETIME ONE Stop: 08/16/18 17:01 Last Admin: 08/16/18 17:03 Dose: 40 meq Potassium Chloride (Klor-Con M20) 40 meq PO ONETIME ONE Stop: 08/17/18 10:01 Last Admin: 08/17/18 09:58 Dose: 40 meq Prednisolone (Orapred 15 Mg/5ml Soln) 40 mg PO DAILY [facility] Last Admin: 08/16/18 08:18 Dose: 40 mg Quetiapine Fumarate (Seroquel) 25 mg PO BID [facility] Last Admin: 08/16/18 08:13 Dose: 25 mg Vancomycin HCl (Vancocin 250 Mg/5 Ml Soln) 250 mg PO Q6HR [facility] Last Admin: 08/06/18 10:58 Dose: 250 mg Vancomycin HCl (Vancocin 250 Mg/5 Ml Soln) 125 mg PO Q6HR [facility] Stop: 08/17/18 22:30 Last Admin: 08/17/18 21:51 Dose: 125 mg - Exam Quality Assessment: No: Supplemental Oxygen General: Alert, Oriented, Cooperative, No Acute Distress HEENT: Scleral Icterus Lungs: Normal Respiratory Effort Cardiovascular: Regular Rate, Regular Rhythm GI/Abdominal Exam: Soft, No Distention - Problem List & Annotations (1) Alcoholic hepatitis without ascites SNOMED Code(s): 976059990 Code(s): K70.10 - ALCOHOLIC HEPATITIS WITHOUT ASCITES Status: Resolved Current Visit: No (2) Alcohol abuse SNOMED Code(s): 93589262 Code(s): F10.10 - ALCOHOL ABUSE, UNCOMPLICATED Status: Acute Current Visit: Yes (3) Hypokalemia SNOMED Code(s): 47572048 Code(s): E87.6 - HYPOKALEMIA Status: Resolved Current Visit: No (4) Tobacco dependence SNOMED Code(s): 54539818 Code(s): F17.200 - NICOTINE DEPENDENCE, UNSPECIFIED, UNCOMPLICATED Status: Chronic Current Visit: Yes - Problem List Review Problem List Initiated/Reviewed/Updated: Yes - Plan Plan:: ASSESSMENT AND PLAN - Alcoholic hepatitis/cirrhosis - bilirubin stable at 10.1. Appetite and energy level improving. -Weekly laboratory follow-up as an outpatient Acute acalculous cholecystitis, resolved - stable now that he has completed antibiotic therapy, no fevers or abdominal pain. Clostridium difficile colitis - diarrhea resolved, he has completed his course of antibiotic therapy. Alcohol abuse - alcohol withdrawal has resolved. He has been legally committed by the state and will be mandated to state alcohol treatment. Severe anxiety - stable -Citalopram 20 mg by mouth daily Hypokalemia - potassium level has been normal. Tobacco dependence - no interest in quitting at this time. Current cigarette allowance is 3 per day. -Nicotine patch Maintenance issues - - DVT prophylaxis - mechanical - GI prophylaxis - PPI - Nutrition - regular diet Disposition - I would anticipate discharge to inpatient alcohol treatment after the hospital stay Kiran Sharma M.D.
[2018-08-21] MEDS: DULoxetine 30 MG Cap PO SCH (08:01)
[2018-08-21] MEDS: Thiamine 100 MG Tab PO SCH (08:01)
[2018-08-21] MEDS: Potassium Chloride 20 MEQ Tab.ER PO SCH (08:01)
[2018-08-21] MEDS: Pantoprazole 40 MG Tab.CR PO SCH (08:01)
[2018-08-21] MEDS: Folic Acid 1 MG Tab PO SCH (08:01)
[2018-08-21] MEDS: Lactobacillus Rhamnosus GG (Probiotic) Cap PO SCH (08:01)
[2018-08-21] MEDS: Citalopram 20 MG Tab PO SCH (08:01)
[2018-08-21 08:06] VITALS: BP 149/95; PULSE 100
--- NOTE | 2018-08-21 09:01 | PCM.DCSUM1 ---
Discharge Summary - Hospital Course Brief History: 37-year-old male with history of chronic back pain, generalized anxiety disorder and alcohol dependence with recent admission for alcohol withdrawal and alcoholic hepatitis who presented intoxicated after collapsing in his apartment. He was admitted for management of alcoholic hepatitis. Diagnosis: Stroke: No - Discharge Data Discharge Date: 08/21/18 Discharge Disposition: DC/Tfer to Inpt Rehab Fac 62 Condition: Fair - Discharge Diagnosis/Problem(s) (1) Alcoholic hepatitis without ascites SNOMED Code(s): 606583889 ICD Code: K70.10 - ALCOHOLIC HEPATITIS WITHOUT ASCITES Status: Resolved Current Visit: No (2) Alcohol abuse SNOMED Code(s): 46014754 ICD Code: F10.10 - ALCOHOL ABUSE, UNCOMPLICATED Status: Acute Current Visit: Yes (3) Hypokalemia SNOMED Code(s): 29859604 ICD Code: E87.6 - HYPOKALEMIA Status: Resolved Current Visit: No (4) Tobacco dependence SNOMED Code(s): 59712231 ICD Code: F17.200 - NICOTINE DEPENDENCE, UNSPECIFIED, UNCOMPLICATED Status : Chronic Current Visit: Yes (5) Alcohol withdrawal delirium, acute, hypoactive SNOMED Code(s): 7991293, 36750060 ICD Code: F10.231 - ALCOHOL DEPENDENCE WITH WITHDRAWAL DELIRIUM Status: Acute Current Visit: Yes (6) Clostridium difficile colitis SNOMED Code(s): 402449126 ICD Code: A04.72 - ENTEROCOLITIS D/T CLOSTRIDIUM DIFFICILE, NOT SPCF RECUR Status: Acute Current Visit: Yes - Patient Summary/Data Consults: Consultations 08/01/18 15:29 PT Evaluation and Treatment [CONS] Routine Please Evaluate and Treat. PT Reason for Consult: Strengthening This query below is only for informational purposes and is not editable. Admission Diagnosis/Problem: Alcoholic hepatitis Hospital Course: Domingo presented to the emergency room after collapsing in his apartment. Workup in the emergency room revealed alcohol intoxication as well as evidence for alcoholic hepatitis with elevated AST, ALT and bilirubin. There was a great deal of concern from his family at the time of presentation about his heavy and persistent alcohol use. His family had tried to pursue commitment outpatient but did not have sufficient supporting documentation at that time. He was admitted to the intensive care unit with the suspicion that he would go into alcohol withdrawal fairly quickly. Shortly after admission to the intensive care unit he started to hallucinate and become agitated. Alcohol withdrawal was managed with scheduled gabapentin as well as PRN lorazepam and Haldol for more severe agitation. He fairly quickly transitioned to a hypoactive delirium which lasted for about 1 week. During that time he had a slow rise in his bilirubin with levels going up as high as 15 before taking a more rapid jump up to 21 and then up to 25. With the rapid jump we did explore imaging of the abdomen which showed mild ascites as well as a distended gallbladder with mild thickening of the gallbladder wall. There was sludge noted in the gallbladder but no stones. Acalculus cholecystitis was considered but the patient did not have any abdominal pain or nausea. By this point his alcohol withdrawal was nearly complete though he remained extremely weak. He was started on antibiotics to cover potential pathogens from gallbladder disease. The patient remained asymptomatic. He was eventually transitioned to oral antibiotics and has completed adequate therapy for his potential gallbladder disease. He continues to be asymptomatic and tolerates his diet without any symptoms of abdominal pain or nausea. No further workup or treatment is needed unless the patient develops signs or symptoms gallbladder disease. Regarding his alcoholic hepatitis, his bilirubin iesha high enough that his discriminant function calculation became greater than 32. At this point he was started on prednisolone. This was continued for about 10 days before it was discontinued with the concern that it may be contributing to hallucinations. His bilirubin level has improved from a peak of more than 25 down to 10 at the time of discharge. He does not have any right upper quadrant pain. He remains very jaundiced but has the above-mentioned improvement in his bilirubin. He has been counseled on multiple occasions about the importance of absolute abstinence from alcohol. He has been counseled that any alcohol use will very likely lead to further liver damage with increased morbidity and very likely a quick mortality. Patient has a long history of alcohol use and abuse. He has had multiple DWIs and has been through treatment multiple times. He had a hospital stay several months ago for alcoholic hepatitis and severe alcohol withdrawal. Given the severity of his liver disease at presentation and progression to even more severe alcoholic hepatitis we elected to petition the court for commitment. His initial 72 hour hold was extended to a court hold and finally the patient was committed to alcohol treatment. He has remained hospitalized until his medical problems have stabilized/resolved. Our hope is that the patient will benefit from inpatient treatment. He is at a very high risk for morbidity and/or mortality if he uses any alcohol at this point. Also encountered during the hospital stay was hypokalemia which required fairly regular supplementation. His levels have been better after supplementation. About 10 days into the hospital stay he developed significant diarrhea. Clostridium difficile testing was positive and he was started on oral vancomycin. He has completed 2 weeks of therapy and his diarrhea has resolved. He is no longer contagious at this point. He continues to smoke but a cigarette use has been very limited. He has been utilizing a nicotine patch as well. He does not express any interest in quitting tobacco products at this time. At this time the patient is stable and safe for transfer. Acute medical problems have all either resolved or become stable. He is safe for treatment at this time. He will be discharged in fair condition at this time. - Patient Instructions Diet: Regular Diet as Tolerated Activity: As Tolerated Showering/Bathing: May Shower Other/Special Instructions: 1. You were in the hospital for management of alcohol abuse complicated by alcohol withdrawal and delirium tremens. Because of the heavy alcohol use you developed alcoholic hepatitis. The alcohol withdrawal has completed. Your alcoholic hepatitis is improving. Your hospital stay was also complicated by Clostridium difficile infection in your colon. This has also resolved with antibiotic therapy. Because of the duration and quantity of alcohol use as well as the potentially life-threatening complications we have petitioned the court for commitment and you are court mandated to go to treatment. 2. Check CMP weekly starting 08/24 - Dx: alcoholic hepatitis - Discharge Plan *PRESCRIPTION DRUG MONITORING PROGRAM REVIEWED*: Not Applicable *COPY OF PRESCRIPTION DRUG MONITORING REPORT IN PATIENT MIKE: Not Applicable Prescriptions/Med Rec: Citalopram [Citalopram HBr] 20 mg PO DAILY #30 tablet DULoxetine [Cymbalta] 30 mg PO BID #60 cap Folic Acid 1 mg PO DAILY #30 tablet Lactobacillus Rhamnosus GG [Culturelle] 1 cap PO BID #60 cap Nicotine [Habitrol] 14 mg TRDERM DAILY PRN #30 patch PRN Reason: nicotine craving Potassium Chloride [Klor-Con M20] 40 meq PO DAILY #30 tab.er Thiamine [Vitamin B-1] 100 mg PO DAILY #30 tablet Home Medications: Home Meds DULoxetine HCl [Duloxetine HCl] 30 mg PO DAILY 04/09/18 [History] Citalopram [Citalopram HBr] 20 mg PO DAILY #30 tablet 08/17/18 [Rx] DULoxetine [Cymbalta] 30 mg PO BID #60 cap 08/17/18 [Rx] Folic Acid 1 mg PO DAILY #30 tablet 08/17/18 [Rx] Lactobacillus Rhamnosus GG [Culturelle] 1 cap PO BID #60 cap 08/17/18 [Rx] Nicotine [Habitrol] 14 mg TRDERM DAILY PRN #30 patch 08/17/18 [Rx] Potassium Chloride [Klor-Con M20] 40 meq PO DAILY #30 tab.er 08/17/18 [Rx] Thiamine [Vitamin B-1] 100 mg PO DAILY #30 tablet 08/17/18 [Rx] Oxygen Therapy Mode: Room Air Forms: ED Department Discharge Referrals: PCP,None [Primary Care Provider] - - Discharge Summary/Plan Comment DC Time >30 min.: Yes (50 - coordinating tx plan) - Patient Data Vitals - Most Recent: Last Vital Signs Temp 34.9 C L 08/21/18 08:00 Pulse 100 08/21/18 08:00 Resp 16 08/21/18 08:00 BP 149/95 H 08/21/18 08:00 Pulse Ox 100 08/21/18 08:00 Orthostatic Blood Pressure [ 107/48 Standing] Orthostatic Blood Pressure [ 107/73 Sitting] Orthostatic Blood Pressure [ 121/83 Supine] Weight - Most Recent: 65.635 kg I&O - Last 24 hours: Intake & Output 08/20/18 08/21/18 08/21/18 22:59 06:59 14:59 Intake Total 550 Balance 550 Med Orders - Current: Current Medications Citalopram Hydrobromide (Celexa) 20 mg PO DAILY [facility] Last Admin: 08/21/18 08:01 Dose: 20 mg Duloxetine HCl (Cymbalta) 30 mg PO BID [facility] Last Admin: 08/21/18 08:01 Dose: 30 mg Folic Acid (Folic Acid) 1 mg PO DAILY [facility] Last Admin: 08/21/18 08:01 Dose: 1 mg Lactobacillus Rhamnosus (Culturelle) 1 cap PO BID [facility] Last Admin: 08/21/18 08:01 Dose: 1 cap Magnesium Hydroxide (Milk Of Magnesia) 30 ml PO Q12H PRN PRN Reason: Constipation Melatonin (Melatonin) 9 mg PO BEDTIME [facility] Last Admin: 08/20/18 20:50 Dose: 9 mg Nicotine (Habitrol) 14 mg TRDERM DAILY PRN PRN Reason: nicotine craving Last Admin: 08/15/18 19:40 Dose: 14 mg Ondansetron HCl (Zofran Odt) 4 mg PO Q6H PRN PRN Reason: Nausea able to take PO Last Admin: 08/02/18 15:15 Dose: 4 mg Ondansetron HCl (Zofran) 4 mg IV Q6H PRN PRN Reason: Nausea/Vomiting Pantoprazole Sodium (Protonix) 40 mg PO ACBREAKFAST [facility] Last Admin: 08/21/18 08:01 Dose: 40 mg Potassium Chloride (Klor-Con M20) 40 meq PO BID [facility] Last Admin: 08/21/18 08:01 Dose: 40 meq Senna/Docusate Sodium (Senna Plus) 1 tab PO BID PRN PRN Reason: Constipation Thiamine HCl (Vitamin B-1) 100 mg PO DAILY [facility] Last Admin: 08/21/18 08:01 Dose: 100 mg Discontinued Medications Amoxicillin/Clavulanate Potassium (Augmentin 875 Mg/125 Mg) 1 tab PO Q12H [facility] Last Admin: 08/12/18 08:16 Dose: 1 tab Diphenoxylate HCl/Atropine (Lomotil 0.025-2.5 Mg) 1 tab PO Q4H PRN PRN Reason: Diarrhea Last Admin: 08/05/18 20:46 Dose: 1 tab Divalproex Sodium (Divalproex Sodium) 250 mg PO BIDMEALS [facility] Last Admin: 08/09/18 07:40 Dose: 250 mg Duloxetine HCl (Cymbalta) 30 mg PO DAILY [facility] Last Admin: 08/02/18 07:59 Dose: 30 mg Gabapentin (Neurontin) 400 mg PO TID [facility] Last Admin: 07/29/18 10:03 Dose: Not Given Gabapentin (Neurontin) 200 mg PO TID [facility] Last Admin: 08/01/18 13:21 Dose: 200 mg Haloperidol Lactate (Haldol) 2 mg IVPUSH Q4H PRN PRN Reason: Agitation Last Admin: 07/28/18 01:45 Dose: 2 mg Haloperidol Lactate (Haldol) 5 mg IM ONETIME STA Stop: 07/30/18 06:02 Last Admin: 07/30/18 06:16 Dose: 5 mg Hydromorphone HCl (Dilaudid) 0.5 mg IVPUSH Q2H PRN PRN Reason: Headache Last Admin: 08/03/18 01:19 Dose: 0.5 mg Multivitamins/Minerals 10 ml/Thiamine HCl 100 mg/ Folic Acid 1 mg/ Magnesium Sulfate 3 gm/ Sodium Chloride 1,017.2 mls @ 1,000 mls/hr IV ASDIRECTED [facility] Multivitamins/Minerals 10 ml/Thiamine HCl 100 mg/ Folic Acid 1 mg/ Magnesium Sulfate 3 gm/ Sodium Chloride 1,017.2 mls @ 500 mls/hr IV ASDIRECTED ONE Stop: 07/24/18 19:02 Last Admin: 07/24/18 17:03 Dose: 500 mls/hr Dextrose/Sodium Chloride (Dextrose 5%-Normal Saline) 1,000 mls @ 125 mls/hr IV ASDIRECTED [facility] Last Admin: 07/26/18 10:23 Dose: 125 mls/hr Potassium Chloride 20 meq/Lidocaine HCl 2 ml/ Sodium Chloride 112 mls @ 50 mls/ hr IV Q2H [facility] Stop: 07/24/18 22:03 Last Admin: 07/24/18 22:00 Dose: 50 mls/hr Potassium Chloride (Kcl 20 Meq In Water 100 Ml) Confirm Administered Dose 200 mls @ as directed .ROUTE .STK-MED ONE Stop: 07/24/18 19:43 Last Admin: 07/24/18 19:49 Dose: Not Given Potassium Chloride 20 meq/ (Premix) 0 mls @ 50 mls/hr IV ONETIME ONE Stop: 07/25/18 06:00 Last Admin: 07/25/18 10:06 Dose: Not Given Potassium Chloride (Kcl 20 Meq In Water 100 Ml) 100 mls @ 50 mls/hr IV Q2H [facility] Stop: 07/25/18 10:59 Last Admin: 07/25/18 09:02 Dose: 50 mls/hr Potassium Chloride 20 meq/Lidocaine HCl 2 ml/ Sodium Chloride 112 mls @ 50 mls/ hr IV Q2H [facility] Stop: 07/25/18 18:29 Last Admin: 07/25/18 17:11 Dose: 50 mls/hr Potassium Chloride 20 meq/Lidocaine HCl 2 ml/ Sodium Chloride 112 mls @ 56 mls/ hr IV Q2H [facility] Stop: 07/26/18 13:29 Last Admin: 07/26/18 12:31 Dose: 56 mls/hr Potassium Chloride/Dextrose/Sod Cl (D5 1/2 Ns W/ 20 Meq/L Kcl) 1,000 mls @ 75 mls/hr IV ASDIRECTED [facility] Last Admin: 07/27/18 03:56 Dose: 75 mls/hr Potassium Chloride/Dextrose/Sod Cl (D5 1/2 Ns W/ 20 Meq/L Kcl) 1,000 mls @ 50 mls/hr IV ASDIRECTED [facility] Last Admin: 07/29/18 18:36 Dose: 50 mls/hr Potassium Chloride 20 meq/Lidocaine HCl 2 ml/ Sodium Chloride 112 mls @ 50 mls/ hr IV Q2H [facility] Stop: 07/28/18 13:59 Last Admin: 07/28/18 12:23 Dose: 50 mls/hr Sodium Chloride (Normal Saline) 500 mls @ 500 mls/hr IV .BOLUS ONE Stop: 07/28/18 19:36 Last Admin: 07/28/18 18:40 Dose: 500 mls/hr Potassium Chloride 20 meq/ (Premix) 100 mls @ 50 mls/hr IV Q2H [facility] Stop: 07/31/18 08:00 Last Admin: 07/31/18 06:35 Dose: 50 mls/hr Potassium Chloride 20 meq/Lidocaine HCl 2 ml/ Sodium Chloride 112 mls @ 56 mls/ hr IV ONETIME ONE Stop: 07/31/18 10:29 Last Admin: 07/31/18 08:27 Dose: 56 mls/hr Sodium Chloride (Normal Saline) 1,000 mls @ 125 mls/hr IV ASDIRECTED [facility] Last Admin: 08/01/18 03:23 Dose: 125 mls/hr Ampicillin Sodium/Sulbactam (Sodium 1.5 gm/ Sodium Chloride) 50 mls @ 100 mls/ hr IV Q6H [facility] Last Admin: 08/07/18 04:32 Dose: 100 mls/hr Ibuprofen (Motrin) 600 mg PO Q6H PRN PRN Reason: Pain/Fever Last Admin: 08/03/18 03:03 Dose: 600 mg Ketorolac Tromethamine (Toradol) 30 mg IVPUSH Q6H PRN PRN Reason: Pain Stop: 08/08/18 08:36 Last Admin: 08/03/18 19:52 Dose: 30 mg Lidocaine HCl (Xylocaine-Mpf 1%) 2 ml INJECT ONETIME ONE Stop: 07/25/18 06:02 Last Admin: 07/25/18 06:32 Dose: 2 ml Lidocaine HCl (Xylocaine-Mpf 1%) 2 ml INJECT ONETIME ONE Stop: 07/31/18 05:56 Last Admin: 07/31/18 06:41 Dose: 2 ml Loperamide HCl (Imodium) 2 mg PO Q4H PRN PRN Reason: Diarrhea Last Admin: 07/31/18 10:17 Dose: 2 mg Lorazepam (Ativan) 0 mg PO ASDIRECTED [facility]; Protocol Last Admin: 07/29/18 15:46 Dose: 1 mg Lorazepam (Ativan) 0 mg IV ASDIRECTED [facility]; Protocol Last Admin: 07/28/18 08:13 Dose: 2 mg Lorazepam (Ativan) 2 mg IVPUSH ASDIRECTED PRN PRN Reason: Seizures Last Admin: 07/28/18 09:00 Dose: 2 mg Lorazepam (Ativan) 1 mg PO ONETIME ONE Stop: 08/03/18 22:34 Last Admin: 08/03/18 22:51 Dose: 1 mg Nicotine (Habitrol) 14 mg TRDERM DAILY [facility] Last Admin: 08/09/18 08:20 Dose: Not Given Pantoprazole Sodium (Protonix Iv) 40 mg IV DAILY [facility] Last Admin: 07/24/18 19:52 Dose: 40 mg Pantoprazole Sodium (Protonix Iv) 40 mg IV Q24H [facility] Last Admin: 07/26/18 16:11 Dose: 40 mg Potassium Chloride (Klor-Con M20) 40 meq PO ONETIME ONE Stop: 07/31/18 06:01 Last Admin: 07/31/18 06:31 Dose: 40 meq Potassium Chloride (Klor-Con M20) 40 meq PO ONETIME ONE Stop: 07/31/18 12:01 Last Admin: 07/31/18 11:58 Dose: 40 meq Potassium Chloride (Klor-Con M20) 40 meq PO ONETIME ONE Stop: 08/01/18 09:01 Last Admin: 08/01/18 08:22 Dose: 40 meq Potassium Chloride (Klor-Con M20) 40 meq PO ONETIME ONE Stop: 08/01/18 12:01 Last Admin: 08/01/18 11:18 Dose: 40 meq Potassium Chloride (Klor-Con M20) 40 meq PO ONETIME ONE Stop: 08/01/18 17:01 Last Admin: 08/01/18 17:03 Dose: 40 meq Potassium Chloride (Klor-Con M20) 40 meq PO ONETIME ONE Stop: 08/03/18 09:01 Last Admin: 08/03/18 09:57 Dose: 40 meq Potassium Chloride (Klor-Con M20) 40 meq PO ONETIME ONE Stop: 08/03/18 17:01 Last Admin: 08/03/18 16:22 Dose: 40 meq Potassium Chloride (Klor-Con M20) 40 meq PO ONETIME ONE Stop: 08/05/18 11:31 Last Admin: 08/05/18 11:24 Dose: 40 meq Potassium Chloride (Klor-Con M20) 40 meq PO ONETIME ONE Stop: 08/05/18 17:01 Last Admin: 08/05/18 16:49 Dose: 40 meq Potassium Chloride (Klor-Con M20) 40 meq PO BID [facility] Stop: 08/07/18 21:01 Last Admin: 08/07/18 20:55 Dose: 40 meq Potassium Chloride (Klor-Con M20) 40 meq PO ONETIME ONE Stop: 08/08/18 09:01 Last Admin: 08/08/18 09:59 Dose: 40 meq Potassium Chloride (Klor-Con M20) 40 meq PO ONETIME ONE Stop: 08/10/18 06:59 Last Admin: 08/10/18 07:10 Dose: 40 meq Potassium Chloride (Klor-Con M20) 40 meq PO TID [facility] Last Admin: 08/12/18 08:16 Dose: 40 meq Potassium Chloride (Klor-Con M20) 40 meq PO DAILY [facility] Last Admin: 08/17/18 08:25 Dose: 40 meq Potassium Chloride (Klor-Con M20) 40 meq PO ONETIME ONE Stop: 08/13/18 08:32 Last Admin: 08/13/18 08:44 Dose: 40 meq Potassium Chloride (Klor-Con M20) 40 meq PO ONETIME ONE Stop: 08/13/18 12:01 Last Admin: 08/13/18 11:44 Dose: 40 meq Potassium Chloride (Klor-Con M20) 40 meq PO ONETIME ONE Stop: 08/13/18 17:01 Last Admin: 08/13/18 16:26 Dose: 40 meq Potassium Chloride (Klor-Con M20) 40 meq PO ONETIME ONE Stop: 08/15/18 09:01 Last Admin: 08/15/18 08:57 Dose: 40 meq Potassium Chloride (Klor-Con M20) 40 meq PO ONETIME ONE Stop: 08/16/18 12:01 Last Admin: 08/16/18 12:07 Dose: 40 meq Potassium Chloride (Klor-Con M20) 40 meq PO ONETIME ONE Stop: 08/16/18 17:01 Last Admin: 08/16/18 17:03 Dose: 40 meq Potassium Chloride (Klor-Con M20) 40 meq PO ONETIME ONE Stop: 08/17/18 10:01 Last Admin: 08/17/18 09:58 Dose: 40 meq Prednisolone (Orapred 15 Mg/5ml Soln) 40 mg PO DAILY [facility] Last Admin: 08/16/18 08:18 Dose: 40 mg Quetiapine Fumarate (Seroquel) 25 mg PO BID [facility] Last Admin: 08/16/18 08:13 Dose: 25 mg Vancomycin HCl (Vancocin 250 Mg/5 Ml Soln) 250 mg PO Q6HR [facility] Last Admin: 08/06/18 10:58 Dose: 250 mg Vancomycin HCl (Vancocin 250 Mg/5 Ml Soln) 125 mg PO Q6HR [facility] Stop: 08/17/18 22:30 Last Admin: 08/17/18 21:51 Dose: 125 mg - Exam Quality Assessment: Denies: Supplemental Oxygen General: Reports: Alert, Oriented, Cooperative, No Acute Distress HEENT: Reports: Scleral Icterus Lungs: Reports: Normal Respiratory Effort GI/Abdominal Exam: Soft, No Distention Extremities: No Pedal Edema Psy/Mental Status: Reports: Alert, Normal Affect. Denies: Hallucinations *Q Meaningful Use (DIS) - VTE *Q VTE Pharmacological Contraindications *Q: Thrombocytopenia
== END 2018-08-21 09:10 | DRG 433 ==
LOC: JP.ED 16:29 → JP.ICU 17:46
PROVIDERS: ADMIT Internal Medicine; ATTEND Internal Medicine
DX: K70.10 Alcoholic hepatitis without ascites (principal); F10.231 Alcohol dependence with withdrawal delirium; F68.10 Factitious disorder imposed on self, unspecified; A04.72 Enterocolitis due to Clostridium difficile, not specified as recurrent; K81.0 Acute cholecystitis; K70.30 Alcoholic cirrhosis of liver without ascites; K70.40 Alcoholic hepatic failure without coma; D69.6 Thrombocytopenia, unspecified; F10.229 Alcohol dependence with intoxication, unspecified; Y90.6 Blood alcohol level of 120-199 mg/100 ml; F17.210 Nicotine dependence, cigarettes, uncomplicated; R29.6 Repeated falls; I10 Essential (primary) hypertension; H54.7 Unspecified visual loss; G47.30 Sleep apnea, unspecified; M54.9 Dorsalgia, unspecified; G89.29 Other chronic pain; F32.9 Major depressive disorder, single episode, unspecified; F41.1 Generalized anxiety disorder; R51 Headache; F98.8 Other specified behavioral and emotional disorders with onset usually occurring in childhood and adolescence; Z91.5 Personal history of self-harm; E87.6 Hypokalemia; R00.0 Tachycardia, unspecified; R55 Syncope and collapse; R44.1 Visual hallucinations; R45.1 Restlessness and agitation; T38.0X5A Adverse effect of glucocorticoids and synthetic analogues, initial encounter; Y92.230 Patient room in hospital as the place of occurrence of the external cause
CPT/HCPCS: 36415; 76705; 78226; 78226-26; 80048; 80053; 80076; 82140; 82248; 82270; 82272; 83735; 84132; 85014; 85018; 85025; 85027; 85610; 87493; 96365; 97010; 97110-GP; 97140-GP; 97162-GP; 97530-GP; 97535-GP; 99284-25; A9270-GY; A9537; C9113; G0480; J0287; J1170; J1630; J1885; J2001; J2060; J2805; J3411; J3475; J3480; J3490; J7030; J7040; J7050

== ENCOUNTER 2018-10-29 15:03 | Emergency (ER) | payer MEDICAID ==
--- NOTE | 2018-10-29 15:58 | EDM.PDOCBH ---
ED HPI GENERAL MEDICAL PROBLEM - General Chief Complaint: Drug or Alcohol Abuse Stated Complaint: EVAL Time Seen by Provider: 10/29/18 15:15 Source of Information: Reports: Patient, Police ([facility] Judge Court Order) - History of Present Illness INITIAL COMMENTS - FREE TEXT/NARRATIVE: 38 yo male present to ER with [facility]'s Deputies on a court order to be apprehended, held and taken to the [facility] Emergency Department to be medically cleared. Patient has been drinking on Monday and Monday while sitting in his apartment watching football games with friends. Patient has pans to visit a friend from [place] whom recently moved back to the area this evening. Patient has a scheduled dentist appointment tomorrow to take care of some of his teeth. Patient is very frustrated as he feels he has a right to drink if he so chooses if he is not causing any concerns or disrupting anyone. Patient has been through treatment and has no desire to stop drinking. Patient state he drinks due to his back pain which he had a fusion, failed physical therapy and not allowed to get additional repeat Narcotic pain medications. Patient had been taking to people on his cell phone. Patient make flippant statement that if he goes home he is going to drink himself to . I asked why he did not drink himself to over the weekend, when he had a opportunity. We were made aware of his court order on Monday but not brought in on Monday and left alone over the weekend to do as he pleased. Patient does not offer anything in way of complaints but agree that "some big fat house carpenter helper can decide that he must stop drinking". Patient had chicken nuggets for lunch this afternoon but feels dehydrated due to drinking over the weekend. - Related Data Allergies Allergy/AdvReac Type Severity Reaction Status Date / Time No Known Allergies Allergy Verified 10/29/18 15:15 Home Meds: Home Meds DULoxetine HCl [Duloxetine HCl] 30 mg PO DAILY 04/09/18 [History] Citalopram [Citalopram HBr] 20 mg PO DAILY #30 tablet 08/17/18 [Rx] DULoxetine [Cymbalta] 30 mg PO BID #60 cap 08/17/18 [Rx] Folic Acid 1 mg PO DAILY #30 tablet 08/17/18 [Rx] Lactobacillus Rhamnosus GG [Culturelle] 1 cap PO BID #60 cap 08/17/18 [Rx] Nicotine [Habitrol] 14 mg TRDERM DAILY PRN #30 patch 08/17/18 [Rx] Potassium Chloride [Klor-Con M20] 40 meq PO DAILY #30 tab.er 08/17/18 [Rx] Thiamine [Vitamin B-1] 100 mg PO DAILY #30 tablet 08/17/18 [Rx] Past Medical History HEENT History: Reports: Impaired Vision, Other (See Below) Other HEENT History: Carries Cardiovascular History: Reports: Hypertension Other Cardiovascular History: episode of blackouts Respiratory History: Reports: Sleep Apnea Gastrointestinal History: Reports: Cirrhosis Musculoskeletal History: Reports: Arthritis, Back Pain, Chronic Neurological History: Reports: Concussion, Headaches, Chronic, Seizure Psychiatric History: Reports: ADD, Addiction, Anxiety, Depression, Suicide Attempt - Infectious Disease History Infectious Disease History: Reports: Chicken Pox - Past Surgical History Neurological Surgical History: Reports: Laminectomy Social & Family History - Family History Psychiatric: Reports: Other (See Below) - Tobacco Use Smoking Status *Q: Current Every Day Smoker Years of Tobacco use: 25 Packs/Tins Daily: 0.5 - Caffeine Use Caffeine Use: Reports: None - Recreational Drug Use Recreational Drug Use: No ED ROS GENERAL - Review of Systems Review Of Systems: ROS reveals no pertinent complaints other than HPI. HEENT: Reports: Other (dry mouth) ED EXAM, BEHAVIORAL HEALTH - Physical Exam Exam: See Below Exam Limited By: Other (anxious but answers all questions appropriately) General Appearance: Alert, WD/WN, Anxious, Thin Eye Exam: Bilateral Eye: EOMI, PERRL Ears: Normal External Exam, Normal Canal, Hearing Grossly Normal, Normal TMs Nose: Normal Inspection, Normal Mucosa, No Blood Throat/Mouth: Normal Inspection, Normal Lips, Normal Teeth, Normal Gums, Normal Oropharynx, Normal Voice, No Airway Compromise, Other (dry tacky mouth noted) Head: Atraumatic, Normocephalic Neck: Normal Inspection, Supple, Non-Tender, Full Range of Motion Respiratory/Chest: No Respiratory Distress, Lungs Clear, Normal Breath Sounds, No Accessory Muscle Use, Chest Non-Tender Cardiovascular: Normal Peripheral Pulses, Regular Rate, Rhythm, No Edema, No Gallop, No JVD, No Murmur, No Rub, Tachycardia (due to stress and anxious being in ER against his will ) GI/Abdominal: Normal Bowel Sounds, Soft, Non-Tender (Male) Exam: Deferred Rectal (Males) Exam: Deferred Back Exam: Normal Inspection, Decreased Range of Motion (due to spinal fusion. Patient is able to balance on his right foot and lift his left to touch without bending at the waist. He is able to do the opposite with his right foot. ), Other (scar noted on his back) Extremities: Normal Inspection, Normal Range of Motion, Non-Tender, Normal Capillary Refill, No Pedal Edema Neurological: Alert, CN II-XII Intact, Normal Reflexes, No Motor/Sensory Deficits, Oriented x 3, Other (anxious and hyper in his speach pattern adn frustration). No: Abnormal Gait Psychiatric: Alert, Normal Affect, Normal Cognition, Normal Mood, Oriented, Restless, Agitated (due to being in ER and told to stop drinking, pending detox/ treatmet placement in [facility]), Pressured Speech. No: Uncooperative ( patient cooperates completely with my questions and examiantion ) Skin Exam: Warm, Dry, Intact, Normal color, No rash ED Add Procedures - Additional/Other Procedure(s) Procedure(s) (Free Text): Bladder scan (average of 3): 205 cc COURSE, BEHAVIORAL HEALTH COMP - Course Vital Signs: Last Vital Signs Temp 36.5 C 10/29/18 17:08 Pulse 99 10/29/18 17:08 Resp 16 10/29/18 17:08 BP 139/89 10/29/18 17:08 Pulse Ox 95 10/29/18 17:08 Orders, Labs, Meds: Active Orders 24 hr Category Date Time Status Vital Signs [RC] PFP Care 10/29/18 16:57 Active Laboratory Tests 10/29/18 Range/Units 16:45 Urine Opiates Screen Negative (NEGATIVE) Ur Oxycodone Screen Negative (NEGATIVE) Urine Methadone Screen Negative (NEGATIVE) Ur Propoxyphene Screen Negative (NEGATIVE) Ur Barbiturates Screen Negative (NEGATIVE) Ur Tricyclics Screen Negative (NEGATIVE) Ur Phencyclidine Scrn Negative (NEGATIVE) Ur Amphetamine Screen Negative (NEGATIVE) U Methamphetamines Scrn Negative (NEGATIVE) Urine MDMA Screen Negative (NEGATIVE) U Benzodiazepines Scrn Negative (NEGATIVE) U Cocaine Metab Screen Negative (NEGATIVE) U Marijuana (THC) Screen Negative (NEGATIVE) Re-Assessment/Re-Exam: Nursing staff contacted [facility] and would like a Urine Drug Screen completed but do not want an alcohol level drawn as it will be done upon arrival at [facility]. [facility] Sheriff's office has arranged transport to [facility] Treatment as Court ordered. Re-Assessment/Re-Exam Date: 10/29/18 (Patient has been unable to give a urine smaple. Patient has been drinking water. Bladder scan completed: 200cc noted in bladder at this time. Patient gave verbal consent witnessed by (hilaria higuera ) to allow for Catheter to be used to obtain sample for testing. ) Re-Assessment/Re-Exam Time: 16:52 (ER Nurse contacted accepting facility in [facility]. Patient may be transport while Urine Drug test is running.) Medical Clearance: Patient is clinically sober at time of assessment. His speach is clear, his thought process makes sense with frustration. He is able to balance on his right foot and lift his left above his waist. Insight is questionable: "If you let me go home, I will drink himself to or shot himself due to the stress ", "He has no desire to go to treatment, he will run away and continue to drink " and "He is willing to give a urine sample if he is able to drink fluids". 10/29/18 16:05 Discharge vs Psych Eval/Treatment:: Patient will be discharged to be transported by Law Enforcement to accepting treatment facility in [facility]. 10/29/18 16:53 Departure - Departure Time of Disposition: 16:58 (with Law Enforcement) Disposition: DC/Tfer to Psych Hosp/Unit 65 Clinical Impression: Drug dependence, Chronic back pain - Discharge Information Instructions: Alcohol Use Disorder Referrals: PCP,None [Primary Care Provider] - Forms: ED Department Discharge Additional Instructions: 1. Law Enforcement to take patient to Court Ordered Treatment Facility in [facility]. - My Orders Last 24 Hours: My Active Orders 10/29/18 16:57 Vital Signs [RC] PFP - Assessment/Plan Last 24 Hours: My Active Orders 10/29/18 16:57 Vital Signs [RC] PFP
[2018-10-29 17:09] VITALS: BP 139/89; PULSE 99
== END 2018-10-29 17:16 ==
LOC: JP.ED 15:03
DX: F10.20 Alcohol dependence, uncomplicated (principal); M54.9 Dorsalgia, unspecified; G89.29 Other chronic pain; I10 Essential (primary) hypertension; M19.90 Unspecified osteoarthritis, unspecified site; F41.9 Anxiety disorder, unspecified; F32.9 Major depressive disorder, single episode, unspecified; F17.210 Nicotine dependence, cigarettes, uncomplicated; Z79.899 Other long term (current) drug therapy
CPT/HCPCS: 51798; 80305-QW; 99285-25

== ENCOUNTER 2019-10-07 12:31 | Inpatient (IN) | payer MEDICAID ==
[2019-10-07] MEDS ORDERED: Sodium Chloride 0.9% 10 ML Syringe FLUSH PRN (13:48)
[2019-10-07] MEDS ORDERED: MVI, Adult with Vitamin K 10 ML, Thiamine 200 MG, Folic Acid 1 MG, Magnesium Sulfate 2 ... IV ONE ×5 (13:49)
--- NOTE | 2019-10-07 13:51 | EDM.PDOCBH ---
<OfficerDevon - Last Filed: 10/07/19 13:50> ED HPI GENERAL MEDICAL PROBLEM - General Chief Complaint: Drug or Alcohol Abuse Time Seen by Provider: 10/07/19 12:32 Source of Information: Reports: Patient, RN Notes Reviewed History Limitations: Reports: Intoxication - History of Present Illness INITIAL COMMENTS - FREE TEXT/NARRATIVE: 38-year-old gentleman presents emergency department today brought in by family members concerned about his welfare, he admits to consuming alcohol this morning does have a history of extensive alcohol use and dependence. Has had significant ascites in the past. Does not want to go to detoxification facility at this time - Related Data Allergies Allergy/AdvReac Type Severity Reaction Status Date / Time No Known Allergies Allergy Verified 10/07/19 19:27 Home Meds: Home Meds DULoxetine HCl [Duloxetine HCl] 30 mg PO DAILY 04/09/18 [History] Citalopram [Citalopram HBr] 20 mg PO DAILY #30 tablet 08/17/18 [Rx] DULoxetine [Cymbalta] 30 mg PO BID #60 cap 08/17/18 [Rx] Folic Acid 1 mg PO DAILY #30 tablet 08/17/18 [Rx] Lactobacillus Rhamnosus GG [Culturelle] 1 cap PO BID #60 cap 08/17/18 [Rx] Nicotine [Habitrol] 14 mg TRDERM DAILY PRN #30 patch 08/17/18 [Rx] Potassium Chloride [Klor-Con M20] 40 meq PO DAILY #30 tab.er 08/17/18 [Rx] Thiamine [Vitamin B-1] 100 mg PO DAILY #30 tablet 08/17/18 [Rx] Past Medical History HEENT History: Reports: Impaired Vision, Other (See Below) Other HEENT History: Carries Cardiovascular History: Reports: Hypertension Other Cardiovascular History: episode of blackouts Respiratory History: Reports: Sleep Apnea Gastrointestinal History: Reports: Cirrhosis Musculoskeletal History: Reports: Arthritis, Back Pain, Chronic Neurological History: Reports: Concussion, Headaches, Chronic, Seizure Psychiatric History: Reports: ADD, Addiction, Anxiety, Depression, Suicide Attempt - Infectious Disease History Infectious Disease History: Reports: Chicken Pox - Past Surgical History Neurological Surgical History: Reports: Laminectomy Social & Family History - Family History Psychiatric: Reports: Other (See Below) - Caffeine Use Caffeine Use: Reports: Coffee - Recreational Drug Use Recreational Drug Use: No ED ROS GENERAL - Review of Systems Review Of Systems: Unable To Obtain Reason Not Obtained: Intoxicated ED EXAM, BEHAVIORAL HEALTH - Physical Exam Exam: See Below Exam Limited By: Intoxication General Appearance: Alert, No Apparent Distress Eye Exam: Bilateral Eye: Other (Yellow scleral icterus) Head: Atraumatic, Normocephalic Neck: Normal Inspection, Supple, Non-Tender, Full Range of Motion Respiratory/Chest: No Respiratory Distress, Lungs Clear, Normal Breath Sounds, No Accessory Muscle Use, Chest Non-Tender Cardiovascular: Regular Rate, Rhythm, No Murmur GI/Abdominal: Normal Bowel Sounds, Soft, Distended Departure - Departure Disposition: Admitted As Inpatient 66 Clinical Impression: Hypomagnesemia, Mild dehydration, Hyponatremia, Jaundice, Hypoproteinemia Alcohol withdrawal Qualifiers: Complication of substance-induced condition: with unspecified complication Qualified Code(s): F10.239 - Alcohol dependence with withdrawal, unspecified Alcoholic hepatitis Qualifiers: Ascites presence: without ascites Qualified Code(s): K70.10 - Alcoholic h epatitis without ascites - Discharge Information Referrals: PCP,None [Ordering Only Provider] - Forms: ED Department Discharge Sepsis Event Note (ED) - Evaluation Sepsis Screening Result: No Definite Risk <Austin Verma - Last Filed: 10/07/19 20:19> COURSE, BEHAVIORAL HEALTH COMP - Course Vital Signs: Last Vital Signs Temp 36.8 C 10/07/19 19:43 Pulse 104 H 10/07/19 19:43 Resp 16 10/07/19 19:43 BP 110/71 10/07/19 19:43 Pulse Ox 95 10/07/19 19:43 Orders, Labs, Meds: Active Orders 24 hr Category Date Time Status Peripheral IV Care [RC] . DIRECTED Care 10/07/19 13:49 Active AMMONIA VENOUS [CHEM] Stat Lab 10/07/19 20:09 Ordered Magnesium Sulfate/Water [Magnesium Sulfate in Water Med 10/07/19 19:59 Active Premix] 2 gm Premix Bag 1 bag IV ONETIME NS + KCl 20mEq/L [Normal Saline with 20 mEq KCl] 1,000 Med 10/07/19 19:45 Active ml IV ASDIRECTED Sodium Chloride 0.9% [Saline Flush] Med 10/07/19 13:48 Active 10 ml FLUSH ASDIRECTED PRN Peripheral IV Insertion Adult [OM.PC] Urgent Oth 10/07/19 13:48 Ordered Medication Orders Potassium Chloride/Sodium Chloride (Normal Saline With 20 Meq Kcl) 1,000 mls @ 1,000 mls/hr IV ASDIRECTED RUSS Last Admin: 10/07/19 19:59 Dose: 1,000 mls/hr Documented by: ALFONSO Magnesium Sulfate 2 gm/ Premix 50 mls @ 12.5 mls/hr IV ONETIME ONE Stop: 10/07/19 23:58 Last Admin: 10/07/19 20:17 Dose: 25 mls/hr Documented by: Sodium Chloride (Saline Flush) 10 ml FLUSH ASDIRECTED PRN PRN Reason: Keep Vein Open Last Admin: 10/07/19 14:54 Dose: 10 ml Documented by: [email or web address] Laboratory Tests 10/07/19 10/07/19 10/07/19 Range/Units 14:05 14:05 14:05 WBC 11.4 H (4.5-11.0) K/uL RBC 3.95 L (4.30-5.90) M/uL Hgb 12.5 D (12.0-15.0) g/dL Hct 37.8 L (40.0-54.0) % MCV 96 (80-98) fL MCH 32 H (27-31) pg MCHC 33 (32-36) % Plt Count 263 (150-400) K/uL Add Manual Diff Yes Neutrophils % (Manual) 74 H (36-66) % Band Neutrophils % 1 L (5-11) % Lymphocytes % (Manual) 12 L (24-44) % Monocytes % (Manual) 12 H (2-6) % Nucleated RBCs 2 Anisocytosis Few Target Cells Few Stomatocytes Moderate H PT (9.5-12.0) sec INR (0.80-1.20) Sodium 121 L (140-148) mmol/L Potassium 3.5 L (3.6-5.2) mmol/L Chloride 78 L (100-108) mmol/L Carbon Dioxide 25 (21-32) mmol/L Anion Gap 21.5 H (5.0-14.0) mmol/L BUN 23 H D (7-18) mg/dL Creatinine 1.4 H D (0.8-1.3) mg/dL Est Cr Clr Drug Dosing 72.43 mL/min Estimated GFR (MDRD) 57 L (>60) Glucose 83 (74-106) mg/dL Calcium 8.0 L (8.5-10.1) mg/dL Magnesium (1.8-2.4) mg/dL Total Bilirubin 10.1 H (0.2-1.0) mg/dL AST 189 H (15-37) U/L ALT 229 H (12-78) U/L Alkaline Phosphatase 318 H (46-116) U/L Ammonia (11-32) mmol/L Total Protein 6.1 L (6.4-8.2) g/dL Albumin 2.5 L (3.4-5.0) g/dL Globulin 3.6 H (2.3-3.5) g/dL Albumin/Globulin Ratio 0.7 L (1.2-2.2) Urine Opiates Screen (NEGATIVE) Ur Oxycodone Screen (NEGATIVE) Urine Methadone Screen (NEGATIVE) Ur Propoxyphene Screen (NEGATIVE) Ur Barbiturates Screen (NEGATIVE) Ur Tricyclics Screen (NEGATIVE) Ur Phencyclidine Scrn (NEGATIVE) Ur Amphetamine Screen (NEGATIVE) U Methamphetamines Scrn (NEGATIVE) Urine MDMA Screen (NEGATIVE) U Benzodiazepines Scrn (NEGATIVE) U Cocaine Metab Screen (NEGATIVE) U Marijuana (THC) Screen (NEGATIVE) Ethyl Alcohol 4 mg/dL 10/07/19 10/07/19 10/07/19 Range/Units 14:05 14:05 19:06 WBC (4.5-11.0) K/uL RBC (4.30-5.90) M/uL Hgb (12.0-15.0) g/dL Hct (40.0-54.0) % MCV (80-98) fL MCH (27-31) pg MCHC (32-36) % Plt Count (150-400) K/uL Add Manual Diff Neutrophils % (Manual) (36-66) % Band Neutrophils % (5-11) % Lymphocytes % (Manual) (24-44) % Monocytes % (Manual) (2-6) % Nucleated RBCs Anisocytosis Target Cells Stomatocytes PT 18.8 H (9.5-12.0) sec INR 1.74 H (0.80-1.20) Sodium (140-148) mmol/L Potassium (3.6-5.2) mmol/L Chloride (100-108) mmol/L Carbon Dioxide (21-32) mmol/L Anion Gap (5.0-14.0) mmol/L BUN (7-18) mg/dL Creatinine (0.8-1.3) mg/dL Est Cr Clr Drug Dosing mL/min Estimated GFR (MDRD) (>60) Glucose (74-106) mg/dL Calcium (8.5-10.1) mg/dL Magnesium (1.8-2.4) mg/dL Total Bilirubin (0.2-1.0) mg/dL AST (15-37) U/L ALT (12-78) U/L Alkaline Phosphatase (46-116) U/L Ammonia 48 H (11-32) mmol/L Total Protein (6.4-8.2) g/dL Albumin (3.4-5.0) g/dL Globulin (2.3-3.5) g/dL Albumin/Globulin Ratio (1.2-2.2) Urine Opiates Screen Negative (NEGATIVE) Ur Oxycodone Screen Negative (NEGATIVE) Urine Methadone Screen Negative (NEGATIVE) Ur Propoxyphene Screen Negative (NEGATIVE) Ur Barbiturates Screen Negative (NEGATIVE) Ur Tricyclics Screen Negative (NEGATIVE) Ur Phencyclidine Scrn Negative (NEGATIVE) Ur Amphetamine Screen Negative (NEGATIVE) U Methamphetamines Scrn Negative (NEGATIVE) Urine MDMA Screen Negative (NEGATIVE) U Benzodiazepines Scrn Negative (NEGATIVE) U Cocaine Metab Screen Negative (NEGATIVE) U Marijuana (THC) Screen Negative (NEGATIVE) Ethyl Alcohol mg/dL 10/07/19 Range/Units 19:47 WBC (4.5-11.0) K/uL RBC (4.30-5.90) M/uL Hgb (12.0-15.0) g/dL Hct (40.0-54.0) % MCV (80-98) fL MCH (27-31) pg MCHC (32-36) % Plt Count (150-400) K/uL Add Manual Diff Neutrophils % (Manual) (36-66) % Band Neutrophils % (5-11) % Lymphocytes % (Manual) (24-44) % Monocytes % (Manual) (2-6) % Nucleated RBCs Anisocytosis Target Cells Stomatocytes PT (9.5-12.0) sec INR (0.80-1.20) Sodium (140-148) mmol/L Potassium (3.6-5.2) mmol/L Chloride (100-108) mmol/L Carbon Dioxide (21-32) mmol/L Anion Gap (5.0-14.0) mmol/L BUN (7-18) mg/dL Creatinine (0.8-1.3) mg/dL Est Cr Clr Drug Dosing mL/min Estimated GFR (MDRD) (>60) Glucose (74-106) mg/dL Calcium (8.5-10.1) mg/dL Magnesium 1.3 L D (1.8-2.4) mg/dL Total Bilirubin (0.2-1.0) mg/dL AST (15-37) U/L ALT (12-78) U/L Alkaline Phosphatase (46-116) U/L Ammonia (11-32) mmol/L Total Protein (6.4-8.2) g/dL Albumin (3.4-5.0) g/dL Globulin (2.3-3.5) g/dL Albumin/Globulin Ratio (1.2-2.2) Urine Opiates Screen (NEGATIVE) Ur Oxycodone Screen (NEGATIVE) Urine Methadone Screen (NEGATIVE) Ur Propoxyphene Screen (NEGATIVE) Ur Barbiturates Screen (NEGATIVE) Ur Tricyclics Screen (NEGATIVE) Ur Phencyclidine Scrn (NEGATIVE) Ur Amphetamine Screen (NEGATIVE) U Methamphetamines Scrn (NEGATIVE) Urine MDMA Screen (NEGATIVE) U Benzodiazepines Scrn (NEGATIVE) U Cocaine Metab Screen (NEGATIVE) U Marijuana (THC) Screen (NEGATIVE) Ethyl Alcohol mg/dL Medications Generic Name Dose Route Start Last Admin Trade Name Freq PRN Reason Stop Dose Admin Potassium Chloride/Sodium Chloride 1,000 mls @ 1,000 mls/hr 10/07/19 19:45 10/07/19 19:59 Normal Saline With 20 Meq Kcl IV 1,000 mls/hr ASDIRECTED RUSS Administration Magnesium Sulfate 2 gm/ Premix 50 mls @ 12.5 mls/hr 10/07/19 19:59 10/07/19 20:17 IV 10/07/19 23:58 25 mls/hr ONETIME ONE Administration Sodium Chloride 10 ml 10/07/19 13:48 10/07/19 14:54 Saline Flush FLUSH 10 ml ASDIRECTED PRN Administration Keep Vein Open Discontinued Medications Generic Name Dose Route Start Last Admin Trade Name Rach PRN Reason Stop Dose Admin Multivitamins/Minerals 10 ml/ 1,016.2 mls @ 500 mls/hr 10/07/19 13:49 10/07/19 14:20 Thiamine HCl 200 mg/ Folic IV 10/07/19 15:50 500 mls/hr Acid 1 mg/ Magnesium Sulfate 2 ONETIME ONE Administration gm/ Dextrose/Lactated Ringer' s Lorazepam 1 mg 10/07/19 19:42 10/07/19 19:59 Ativan PO 10/07/19 19:43 1 mg ONETIME ONE Administration Magnesium Oxide 800 mg 10/07/19 19:59 10/07/19 20:10 Magnesium Oxide PO 10/07/19 20:00 800 mg ONETIME ONE Administration Penicillin V Potassium 500 mg 10/07/19 20:02 10/07/19 20:10 Veetids PO 10/07/19 20:03 500 mg ONETIME ONE Administration Re-Assessment/Re-Exam Date: 10/07/19 (Unable to ambulate independently, Karla Wheeler not willing to take until he can do so. ) Departure - Departure Time of Disposition: 20:35 Condition: Fair - Discharge Information *PRESCRIPTION DRUG MONITORING PROGRAM REVIEWED*: Not Applicable *COPY OF PRESCRIPTION DRUG MONITORING REPORT IN PATIENT MIKE: Not Applicable Sepsis Event Note (ED) - Focused Exam Vital Signs: Vital Signs Temp Pulse Resp BP Pulse Ox 10/07/19 19:43 36.8 C 104 H 16 110/71 95 10/07/19 13:22 36 C L 117 H 16 121/76 97 10/07/19 13:21 36 C L 117 H 16 121/76 97 - My Orders Last 24 Hours: My Active Orders 10/07/19 19:45 NS + KCl 20mEq/L [Normal Saline with 20 mEq KCl] 1,000 ml IV ASDIRECTED 10/07/19 19:59 Magnesium Sulfate/Water [Magnesium Sulfate in Water Premix] 2 gm Premix Bag 1 bag IV ONETIME 10/07/19 20:09 AMMONIA VENOUS [CHEM] Stat - Assessment/Plan Last 24 Hours: My Active Orders 10/07/19 19:45 NS + KCl 20mEq/L [Normal Saline with 20 mEq KCl] 1,000 ml IV ASDIRECTED 10/07/19 19:59 Magnesium Sulfate/Water [Magnesium Sulfate in Water Premix] 2 gm Premix Bag 1 bag IV ONETIME 10/07/19 20:09 AMMONIA VENOUS [CHEM] Stat
[2019-10-07] MEDS ORDERED: LORazepam 1 MG Tab PO ONE (19:42)
[2019-10-07] MEDS ORDERED: NS + KCl 20mEq/L 1,000 ML IV SCH (19:45)
[2019-10-07] MEDS ORDERED: Magnesium Oxide 400 MG Tab PO ONE (19:59)
[2019-10-07] MEDS ORDERED: Penicillin V Potassium 250 MG Tab PO ONE (20:02)
[2019-10-07] MEDS: Magnesium Sulfate/Water 2 GM in Premix Bag 1 BAG IV ONE ×2 (20:10→20:17)
[2019-10-07] MEDS ORDERED: oxyCODONE 5 MG Tab PO PRN (20:43)
[2019-10-07] MEDS ORDERED: Ondansetron 4 MG Tab.DIS PO PRN (20:43)
[2019-10-07] MEDS ORDERED: Ondansetron 4 MG/2 ML SDV IV PRN (20:43)
[2019-10-07] MEDS ORDERED: LORazepam 1 MG Tab PO PRN (20:53)
[2019-10-07] MEDS ORDERED: Pantoprazole 40 MG Tab.CR PO SCH (21:00)
[2019-10-07] MEDS ORDERED: cloNIDine 0.1 MG Tab PO PRN (21:12)
--- NOTE | 2019-10-07 21:18 | PCM.HP.2 ---
H&P History of Present Illness - General Date of Service: 10/07/19 Admit Problem/Dx: Admission Diagnosis/Problem Admission Diagnosis/Problem Liver failure Source of Information: Patient, EMS Notes Reviewed, Family History Limitations: Reports: Altered Mental Status, Intoxication - History of Present Illness Initial Comments - Free Text/Narative: Patient is a 38yo male with alcoholic liver disease who presented to the ED after a welfare check by his family found him in a weakened condition today. He was not intoxicated, but was unable to walk. Patient is either non-cooperative with the interviewing or he is obtunded upon questioning. Onset of Symptoms: Reports: Unknown/Unsure Duration of Symptoms: Reports: Day(s): Associated Symptoms: Reports: Confusion - Related Data Allergies/Adverse Reactions: Allergies Allergy/AdvReac Type Severity Reaction Status Date / Time No Known Allergies Allergy Verified 10/07/19 19:27 Home Medications: Home Meds DULoxetine HCl [Duloxetine HCl] 30 mg PO DAILY 04/09/18 [History] Citalopram [Citalopram HBr] 20 mg PO DAILY #30 tablet 08/17/18 [Rx] DULoxetine [Cymbalta] 30 mg PO BID #60 cap 08/17/18 [Rx] Folic Acid 1 mg PO DAILY #30 tablet 08/17/18 [Rx] Lactobacillus Rhamnosus GG [Culturelle] 1 cap PO BID #60 cap 08/17/18 [Rx] Nicotine [Habitrol] 14 mg TRDERM DAILY PRN #30 patch 08/17/18 [Rx] Potassium Chloride [Klor-Con M20] 40 meq PO DAILY #30 tab.er 08/17/18 [Rx] Thiamine [Vitamin B-1] 100 mg PO DAILY #30 tablet 08/17/18 [Rx] Past Medical History HEENT History: Reports: Impaired Vision, Other (See Below) Other HEENT History: Carries Cardiovascular History: Reports: Hypertension Other Cardiovascular History: episode of blackouts Respiratory History: Reports: Sleep Apnea Gastrointestinal History: Reports: Cirrhosis Musculoskeletal History: Reports: Arthritis, Back Pain, Chronic Neurological History: Reports: Concussion, Headaches, Chronic, Seizure Psychiatric History: Reports: ADD, Addiction, Anxiety, Depression, Suicide Attempt - Infectious Disease History Infectious Disease History: Reports: Chicken Pox - Past Surgical History Neurological Surgical History: Reports: Laminectomy Social & Family History - Family History Psychiatric: Reports: Other (See Below) - Caffeine Use Caffeine Use: Reports: Coffee - Recreational Drug Use Recreational Drug Use: No H&P Review of Systems - Review of Systems: Review Of Systems: Unable To Obtain Reason Not Obtained: Obtunded or uncooperative General: Reports: ROS unobtainable Exam - Exam Exam: See Below - Vital Signs Vital Signs: Last Vital Signs Temp 36.8 C 10/07/19 19:43 Pulse 104 H 10/07/19 19:43 Resp 16 10/07/19 19:43 BP 110/71 10/07/19 19:43 Pulse Ox 95 10/07/19 19:43 Weight: 70.2 kg - Exam General: Obtunded Neck: Supple, Trachea Midline, 2 Lungs: Clear to Auscultation, Normal Respiratory Effort Cardiovascular: Regular Rate, Regular Rhythm GI/Abdominal Exam: Normal Bowel Sounds, Soft, Non-Tender, No Distention, No Abnormal Bruit, No Mass, Pelvis Stable (Male) Exam: Deferred Rectal (Males) Exam: Deferred Back Exam: Normal Inspection, Full Range of Motion, NT Extremities: Normal Inspection, Normal Range of Motion, Non-Tender, No Pedal Edema, Normal Capillary Refill Skin: Warm, Dry, Intact Neuro Extensive - Mental Status: Disorientation to Place, Disorientation to Time, Inattentive. No: Disorientation to Person Psychiatric: Withdrawal Symptoms - Patient Data Lab Results Last 24 hrs: Laboratory Results - last 24 hr 10/07/19 10/07/19 10/07/19 Range/Units 14:05 14:05 14:05 WBC 11.4 H (4.5-11.0) K/uL RBC 3.95 L (4.30-5.90) M/uL Hgb 12.5 D (12.0-15.0) g/dL Hct 37.8 L (40.0-54.0) % MCV 96 (80-98) fL MCH 32 H (27-31) pg MCHC 33 (32-36) % Plt Count 263 (150-400) K/uL Add Manual Diff Yes Neutrophils % (Manual) 74 H (36-66) % Band Neutrophils % 1 L (5-11) % Lymphocytes % (Manual) 12 L (24-44) % Monocytes % (Manual) 12 H (2-6) % Nucleated RBCs 2 Anisocytosis Few Target Cells Few Stomatocytes Moderate H PT (9.5-12.0) sec INR (0.80-1.20) Sodium 121 L (140-148) mmol/L Potassium 3.5 L (3.6-5.2) mmol/L Chloride 78 L (100-108) mmol/L Carbon Dioxide 25 (21-32) mmol/L Anion Gap 21.5 H (5.0-14.0) mmol/L BUN 23 H D (7-18) mg/dL Creatinine 1.4 H D (0.8-1.3) mg/dL Est Cr Clr Drug Dosing 72.43 mL/min Estimated GFR (MDRD) 57 L (>60) Glucose 83 (74-106) mg/dL Calcium 8.0 L (8.5-10.1) mg/dL Magnesium (1.8-2.4) mg/dL Total Bilirubin 10.1 H (0.2-1.0) mg/dL AST 189 H (15-37) U/L ALT 229 H (12-78) U/L Alkaline Phosphatase 318 H (46-116) U/L Ammonia (11-32) mmol/L Total Protein 6.1 L (6.4-8.2) g/dL Albumin 2.5 L (3.4-5.0) g/dL Globulin 3.6 H (2.3-3.5) g/dL Albumin/Globulin Ratio 0.7 L (1.2-2.2) Urine Opiates Screen (NEGATIVE) Ur Oxycodone Screen (NEGATIVE) Urine Methadone Screen (NEGATIVE) Ur Propoxyphene Screen (NEGATIVE) Ur Barbiturates Screen (NEGATIVE) Ur Tricyclics Screen (NEGATIVE) Ur Phencyclidine Scrn (NEGATIVE) Ur Amphetamine Screen (NEGATIVE) U Methamphetamines Scrn (NEGATIVE) Urine MDMA Screen (NEGATIVE) U Benzodiazepines Scrn (NEGATIVE) U Cocaine Metab Screen (NEGATIVE) U Marijuana (THC) Screen (NEGATIVE) Ethyl Alcohol 4 mg/dL 10/07/19 10/07/19 10/07/19 Range/Units 14:05 14:05 19:06 WBC (4.5-11.0) K/uL RBC (4.30-5.90) M/uL Hgb (12.0-15.0) g/dL Hct (40.0-54.0) % MCV (80-98) fL MCH (27-31) pg MCHC (32-36) % Plt Count (150-400) K/uL Add Manual Diff Neutrophils % (Manual) (36-66) % Band Neutrophils % (5-11) % Lymphocytes % (Manual) (24-44) % Monocytes % (Manual) (2-6) % Nucleated RBCs Anisocytosis Target Cells Stomatocytes PT 18.8 H (9.5-12.0) sec INR 1.74 H (0.80-1.20) Sodium (140-148) mmol/L Potassium (3.6-5.2) mmol/L Chloride (100-108) mmol/L Carbon Dioxide (21-32) mmol/L Anion Gap (5.0-14.0) mmol/L BUN (7-18) mg/dL Creatinine (0.8-1.3) mg/dL Est Cr Clr Drug Dosing mL/min Estimated GFR (MDRD) (>60) Glucose (74-106) mg/dL Calcium (8.5-10.1) mg/dL Magnesium (1.8-2.4) mg/dL Total Bilirubin (0.2-1.0) mg/dL AST (15-37) U/L ALT (12-78) U/L Alkaline Phosphatase (46-116) U/L Ammonia 48 H (11-32) mmol/L Total Protein (6.4-8.2) g/dL Albumin (3.4-5.0) g/dL Globulin (2.3-3.5) g/dL Albumin/Globulin Ratio (1.2-2.2) Urine Opiates Screen Negative (NEGATIVE) Ur Oxycodone Screen Negative (NEGATIVE) Urine Methadone Screen Negative (NEGATIVE) Ur Propoxyphene Screen Negative (NEGATIVE) Ur Barbiturates Screen Negative (NEGATIVE) Ur Tricyclics Screen Negative (NEGATIVE) Ur Phencyclidine Scrn Negative (NEGATIVE) Ur Amphetamine Screen Negative (NEGATIVE) U Methamphetamines Scrn Negative (NEGATIVE) Urine MDMA Screen Negative (NEGATIVE) U Benzodiazepines Scrn Negative (NEGATIVE) U Cocaine Metab Screen Negative (NEGATIVE) U Marijuana (THC) Screen Negative (NEGATIVE) Ethyl Alcohol mg/dL 10/07/19 10/07/19 Range/Units 19:47 20:15 WBC (4.5-11.0) K/uL RBC (4.30-5.90) M/uL Hgb (12.0-15.0) g/dL Hct (40.0-54.0) % MCV (80-98) fL MCH (27-31) pg MCHC (32-36) % Plt Count (150-400) K/uL Add Manual Diff Neutrophils % (Manual) (36-66) % Band Neutrophils % (5-11) % Lymphocytes % (Manual) (24-44) % Monocytes % (Manual) (2-6) % Nucleated RBCs Anisocytosis Target Cells Stomatocytes PT (9.5-12.0) sec INR (0.80-1.20) Sodium (140-148) mmol/L Potassium (3.6-5.2) mmol/L Chloride (100-108) mmol/L Carbon Dioxide (21-32) mmol/L Anion Gap (5.0-14.0) mmol/L BUN (7-18) mg/dL Creatinine (0.8-1.3) mg/dL Est Cr Clr Drug Dosing mL/min Estimated GFR (MDRD) (>60) Glucose (74-106) mg/dL Calcium (8.5-10.1) mg/dL Magnesium 1.3 L D (1.8-2.4) mg/dL Total Bilirubin (0.2-1.0) mg/dL AST (15-37) U/L ALT (12-78) U/L Alkaline Phosphatase (46-116) U/L Ammonia 45 H (11-32) mmol/L Total Protein (6.4-8.2) g/dL Albumin (3.4-5.0) g/dL Globulin (2.3-3.5) g/dL Albumin/Globulin Ratio (1.2-2.2) Urine Opiates Screen (NEGATIVE) Ur Oxycodone Screen (NEGATIVE) Urine Methadone Screen (NEGATIVE) Ur Propoxyphene Screen (NEGATIVE) Ur Barbiturates Screen (NEGATIVE) Ur Tricyclics Screen (NEGATIVE) Ur Phencyclidine Scrn (NEGATIVE) Ur Amphetamine Screen (NEGATIVE) U Methamphetamines Scrn (NEGATIVE) Urine MDMA Screen (NEGATIVE) U Benzodiazepines Scrn (NEGATIVE) U Cocaine Metab Screen (NEGATIVE) U Marijuana (THC) Screen (NEGATIVE) Ethyl Alcohol mg/dL Result Diagrams: 10/07/19 14:05 10/07/19 14:05 Sepsis Event Note - Evaluation Sepsis Screening Result: No Definite Risk - Focused Exam Vital Signs: Vital Signs Temp Pulse Resp BP Pulse Ox 10/07/19 19:43 36.8 C 104 H 16 110/71 95 10/07/19 13:22 36 C L 117 H 16 121/76 97 10/07/19 13:21 36 C L 117 H 16 121/76 97 - Problem List (1) Alcoholic hepatitis SNOMED Code(s): 483987732 ICD Code: K70.10 - ALCOHOLIC HEPATITIS WITHOUT ASCITES Status: Acute Current Visit: Yes Problem Details: Patient's labs indicate a Maddrey discriminant function score of 42, indicating benefit to start 40mg daily of prednisolone. or 32mg of methylprednisolone. Patient currently able to take oral, if unable to continue oral will switch to 32 mg Methyprednisolone. Patient will be admitted to the ICU, as it is difficult to ascertain whether he is uncooperative or obtunded, and has a moderate risk of being transferred to a higher level facility due to risks inherent to liver failure. Patient will be placed on protonix for GI prophylaxis, and 125cc/hr NaCl. Will hold all NSAIDs and tylenol at this time. Pain medication should be opiates alone. Patient will have ativan and clonidine available for CIWA protocol. Patient's MELD-NA score is currently 30, giving him a ~30% 90 day mortality rate. Patient is unable to understand or does not respond to plan of care. Qualifiers: Ascites presence: without ascites Qualified Code(s): K70.10 - Alcoholic hepatitis without ascites (2) Alcohol withdrawal SNOMED Code(s): 357929257 ICD Code: F10.239 - ALCOHOL DEPENDENCE WITH WITHDRAWAL, UNSPECIFIED Status: Acute Current Visit: Yes Problem Details: Patient should have CIWAA scoring every 4 hours unless patient is having acute increase in symptoms. Patient can be given ativan Q2h and clonidine for withdrawal symptoms if needed. Patient will have continuous O2 and HR monitoring due to risk of respiratory compromise if opiate pain medication is needed, and due to possibly being obtunded. Qualifiers: Complication of substance-induced condition: with unspecified complication Qualified Code(s): F10.239 - Alcohol dependence with withdrawal, unspecified (3) Hypomagnesemia SNOMED Code(s): 397440571 ICD Code: E83.42 - HYPOMAGNESEMIA Status: Acute Current Visit: Yes Problem Details: magnesium given oral and IV in ED (4) Hyponatremia SNOMED Code(s): 01257417 ICD Code: E87.1 - HYPO-OSMOLALITY AND HYPONATREMIA Status: Acute Current Visit: Yes Problem Details: Will give 0.9% NS at 125cc/hr (5) Hypoproteinemia SNOMED Code(s): 1207590 ICD Code: E77.8 - OTHER DISORDERS OF GLYCOPROTEIN METABOLISM Status: Acute Current Visit: Yes Problem Details: Will give dose of albumin to help with hypoalbuminemia (6) Jaundice SNOMED Code(s): 15837790 ICD Code: R17 - UNSPECIFIED JAUNDICE Status: Acute Current Visit: Yes Problem Details: patient receiving steroids and fluids per hepatic failure dx (7) Mild dehydration SNOMED Code(s): 6240243420735 ICD Code: E86.0 - DEHYDRATION Status: Acute Current Visit: Yes Problem Details: patient will get 0.9% NS 125cc/hr (8) Borderline intellectual disability SNOMED Code(s): 71711430, 606320727 ICD Code: R41.83 - BORDERLINE INTELLECTUAL FUNCTIONING Status: Chronic Current Visit: No Problem Details: Uncertain if this is contributory to patient's uncooperativeness or possible obtundedness (9) Hypokalemia SNOMED Code(s): 62982565 ICD Code: E87.6 - HYPOKALEMIA Status: Acute Current Visit: Yes Onset Date: Unknown Problem Details: Will give patient oral 40meq K+ tablets Problem List Initiated/Reviewed/Updated: Yes Orders Last 24hrs: Active Orders 24 hr Category Date Time Status Patient Status Manage Transfer [TRANSFER] Routine ADT 10/07/19 20:57 Active Patient Status [ADT] Routine ADT 10/07/19 21:08 Active Antiembolic Devices [RC] .Routine Care 10/07/19 20:43 Active Bedrest Bedside Commode [RC] ASDIRECTED Care 10/07/19 20:43 Active Cardiac Monitoring [RC] CONTINUOUS Care 10/07/19 20:45 Active Notify Provider Vital Signs [RC] ASDIRECTED Care 10/07/19 20:45 Active Notify Provider [RC] PRN Care 10/07/19 21:13 Active Oxygen Therapy [RC] PRN Care 10/07/19 20:44 Active Peripheral IV Care [RC] . DIRECTED Care 10/07/19 13:49 Active Pulse Oximetry [RC] CONTINUOUS Care 10/07/19 20:45 Active Up With Assistance [RC] ASDIRECTED Care 10/07/19 20:43 Active VTE/DVT Education [RC] Per Unit Routine Care 10/07/19 20:44 Active Vital Signs [RC] Q4H Care 10/07/19 20:44 Active Regular Diet [DIET] Diet 10/07/19 Breakfast Active BASIC METABOLIC PANEL,BMP [CHEM] AM Lab 10/08/19 05:11 Ordered HEPATIC FUNCTION PANEL,HFP [CHEM] AM Lab 10/08/19 05:11 Ordered INR,PT,PROTHROMBIN TIME [COAG] AM Lab 10/08/19 05:11 Ordered MAGNESIUM [CHEM] AM Lab 10/08/19 05:11 Ordered PHOSPHORUS [CHEM] AM Lab 10/08/19 05:11 Ordered Folic Acid Med 10/08/19 09:00 Ordered 1 mg PO DAILY Gabapentin [Neurontin] Med 10/07/19 21:15 Ordered 400 mg PO Q8H LORazepam [Ativan] Med 10/07/19 20:53 Active 1 mg PO Q2H PRN Magnesium Sulfate/Water [Magnesium Sulfate in Water Med 10/07/19 19:59 Active Premix] 2 gm Premix Bag 1 bag IV ONETIME Morphine Med 10/07/19 20:43 Active 2 mg IVPUSH Q2H PRN NS + KCl 20mEq/L [Normal Saline with 20 mEq KCl] 1,000 Med 10/07/19 19:45 Active ml IV ASDIRECTED Ondansetron [Zofran ODT] Med 10/07/19 20:43 Active 4 mg PO Q6H PRN Ondansetron [Zofran] Med 10/07/19 20:43 Active 4 mg IV Q4H PRN Pantoprazole [ProTONIX] Med 10/07/19 21:00 Active 40 mg PO DAILY Sodium Chloride 0.9% @ 125 MLS/HR (1000ml) Med 10/07/19 21:15 Ordered Sodium Chloride 0.9% [Normal Saline] 1,000 ml IV ASDIRECTED Sodium Chloride 0.9% [Saline Flush] Med 10/07/19 13:48 Active 10 ml FLUSH ASDIRECTED PRN Thiamine [Vitamin B-1] 100 mg Med 10/08/19 09:00 Ordered Sodium Chloride 0.9% [Normal Saline] 50 ml IV DAILY cloNIDine [Catapres] Med 10/07/19 21:12 Ordered 0.1 mg PO Q6H PRN oxyCODONE Med 10/07/19 20:43 Active 5 mg PO Q4H PRN prednisoLONE [OraPred 15 MG/5ML Soln] Med 10/07/19 21:00 Pending 40 mg PO DAILY Peripheral IV Insertion Adult [OM.PC] Urgent Oth 10/07/19 13:48 Ordered Sequential Compression Device [OM.PC] Per Unit Routine Oth 10/07/19 20:45 Ordered Resuscitation Status Routine Resus Stat 10/07/19 20:43 Ordered Medication Orders Clonidine HCl (Catapres) 0.1 mg PO Q6H PRN PRN Reason: Adrenergic Systems Folic Acid (Folic Acid) 1 mg PO DAILY [facility]USS Gabapentin (Neurontin) 400 mg PO Q8H RUSS Stop: 10/11/19 21:16 Potassium Chloride/Sodium Chloride (Normal Saline With 20 Meq Kcl) 1,000 mls @ 1,000 mls/hr IV ASDIRECTED RUSS Last Admin: 10/07/19 19:59 Dose: 1,000 mls/hr Documented by: ALFONSO Magnesium Sulfate 2 gm/ Premix 50 mls @ 12.5 mls/hr IV ONETIME ONE Stop: 10/07/19 23:58 Last Admin: 10/07/19 20:17 Dose: 25 mls/hr Documented by: ALFONSO Thiamine HCl 100 mg/ Sodium (Chloride) 51 mls @ 100 mls/hr IV DAILY [facility] Sodium Chloride (Normal Saline) 1,000 mls @ 125 mls/hr IV ASDIRECTED [facility] Lorazepam (Ativan) 1 mg PO Q2H PRN PRN Reason: Withdrawal Symptoms Morphine Sulfate (Morphine) 2 mg IVPUSH Q2H PRN PRN Reason: Pain (severe 7-10) Ondansetron HCl (Zofran Odt) 4 mg PO Q6H PRN PRN Reason: Nausea able to take PO Ondansetron HCl (Zofran) 4 mg IV Q4H PRN PRN Reason: Nausea/Vomiting Oxycodone HCl (Oxycodone) 5 mg PO Q4H PRN PRN Reason: Pain (moderate 4-6) Pantoprazole Sodium (Protonix) 40 mg PO DAILY [facility] Prednisolone (Orapred 15 Mg/5ml Soln) 40 mg PO DAILY [facility] Sodium Chloride (Saline Flush) 10 ml FLUSH ASDIRECTED PRN PRN Reason: Keep Vein Open Last Admin: 10/07/19 14:54 Dose: 10 ml Documented by: [id number] - Mortality Measure Prognosis:: Poor
[2019-10-07] MEDS ORDERED: LORazepam 2 MG/ML SDV IVPUSH PRN (21:20)
[2019-10-07] MEDS ORDERED: prednisoLONE 15 MG/5 ML Soln UD Cup PO SCH (21:30)
[2019-10-07] MEDS ORDERED: Potassium Chloride 20 MEQ Tab.ER PO SCH (22:00)
[2019-10-07] MEDS: Sodium Chloride 0.9% 1,000 ML IV SCH (22:10)
[2019-10-07] MEDS: Gabapentin 400 MG Cap PO SCH (22:11)
[2019-10-08] MEDS ORDERED: LORazepam 1 MG Tab PO SCH (00:30)
[2019-10-08] MEDS: LORazepam 2 MG/ML SDV IV SCH ×8 (01:32→21:59)
[2019-10-08] MEDS: Sodium Chloride 0.9% 1,000 ML IV SCH ×2 (04:52→13:46)
[2019-10-08] MEDS: Gabapentin 400 MG Cap PO SCH ×3 (07:26→21:39)
[2019-10-08] MEDS ORDERED: Thiamine 100 MG in Sodium Chloride 0.9% 50 ML IV SCH ×2 (09:00→10:00)
[2019-10-08] MEDS: Potassium Chloride 20 MEQ Tab.ER PO SCH ×2 (10:13→17:30)
--- NOTE | 2019-10-08 12:54 | PCM.PN ---
- General Info Date of Service: 10/08/19 Subjective Update: Mr. Knowles is a 38-year-old gentleman who was admitted through the emergency department with acute on chronic alcoholic hepatitis and alcohol withdrawal. Mr. Cantrell was hospitalized at our facility a year ago and underwent commitment proceedings. He did go to a state-mandated treatment center, but unfortunately started drinking shortly after discharge. He has continued to drink heavily over the past 6 months and is redeveloped significant jaundice and progressive weakness. He was brought into the emergency department yesterday by family and friends. His bilirubin was noted to be significantly elevated as well as elevation in his prothrombin time with a calculated Maddrey score of 41. Admitted to the hospital for management of alcohol withdrawal as well as acute alcoholic hepatitis. He has been confused and intermittently agitated through the night. He is unable to provide a meaningful history concerning recent symptoms or review of systems because of his alcohol withdrawal delirium. - Patient Data Vitals - Most Recent: Last Vital Signs Temp 95.5 F L 10/08/19 08:00 Pulse 100 10/08/19 10:00 Resp 32 H 10/08/19 10:00 BP 147/96 H 10/08/19 10:00 Pulse Ox 95 10/08/19 10:00 Weight - Most Recent: 154 lb 12.232 oz I&O - Last 24 Hours: Intake & Output 10/07/19 10/08/19 10/08/19 22:59 06:59 14:59 Intake Total 100 943 Balance 100 943 Lab Results Last 24 Hours: Laboratory Results - last 24 hr 10/07/19 10/07/19 10/07/19 Range/Units 14:05 14:05 14:05 WBC 11.4 H (4.5-11.0) K/uL RBC 3.95 L (4.30-5.90) M/uL Hgb 12.5 D (12.0-15.0) g/dL Hct 37.8 L (40.0-54.0) % MCV 96 (80-98) fL MCH 32 H (27-31) pg MCHC 33 (32-36) % Plt Count 263 (150-400) K/uL Add Manual Diff Yes Neutrophils % (Manual) 74 H (36-66) % Band Neutrophils % 1 L (5-11) % Lymphocytes % (Manual) 12 L (24-44) % Monocytes % (Manual) 12 H (2-6) % Nucleated RBCs 2 Anisocytosis Few Target Cells Few Stomatocytes Moderate H PT (9.5-12.0) sec INR (0.80-1.20) Sodium 121 L (140-148) mmol/L Potassium 3.5 L (3.6-5.2) mmol/L Chloride 78 L (100-108) mmol/L Carbon Dioxide 25 (21-32) mmol/L Anion Gap 21.5 H (5.0-14.0) mmol/L BUN 23 H D (7-18) mg/dL Creatinine 1.4 H D (0.8-1.3) mg/dL Est Cr Clr Drug Dosing 72.43 mL/min Estimated GFR (MDRD) 57 L (>60) Glucose 83 (74-106) mg/dL Calcium 8.0 L (8.5-10.1) mg/dL Phosphorus (2.5-4.9) mg/dL Magnesium (1.8-2.4) mg/dL Total Bilirubin 10.1 H (0.2-1.0) mg/dL Direct Bilirubin (0.0-0.2) mg/dL Indirect Bilirubin AST 189 H (15-37) U/L ALT 229 H (12-78) U/L Alkaline Phosphatase 318 H (46-116) U/L Ammonia (11-32) mmol/L Total Protein 6.1 L (6.4-8.2) g/dL Albumin 2.5 L (3.4-5.0) g/dL Globulin 3.6 H (2.3-3.5) g/dL Albumin/Globulin Ratio 0.7 L (1.2-2.2) Urine Opiates Screen (NEGATIVE) Ur Oxycodone Screen (NEGATIVE) Urine Methadone Screen (NEGATIVE) Ur Propoxyphene Screen (NEGATIVE) Ur Barbiturates Screen (NEGATIVE) Ur Tricyclics Screen (NEGATIVE) Ur Phencyclidine Scrn (NEGATIVE) Ur Amphetamine Screen (NEGATIVE) U Methamphetamines Scrn (NEGATIVE) Urine MDMA Screen (NEGATIVE) U Benzodiazepines Scrn (NEGATIVE) U Cocaine Metab Screen (NEGATIVE) U Marijuana (THC) Screen (NEGATIVE) Ethyl Alcohol 4 mg/dL 10/07/19 10/07/19 10/07/19 Range/Units 14:05 14:05 19:06 WBC (4.5-11.0) K/uL RBC (4.30-5.90) M/uL Hgb (12.0-15.0) g/dL Hct (40.0-54.0) % MCV (80-98) fL MCH (27-31) pg MCHC (32-36) % Plt Count (150-400) K/uL Add Manual Diff Neutrophils % (Manual) (36-66) % Band Neutrophils % (5-11) % Lymphocytes % (Manual) (24-44) % Monocytes % (Manual) (2-6) % Nucleated RBCs Anisocytosis Target Cells Stomatocytes PT 18.8 H (9.5-12.0) sec INR 1.74 H (0.80-1.20) Sodium (140-148) mmol/L Potassium (3.6-5.2) mmol/L Chloride (100-108) mmol/L Carbon Dioxide (21-32) mmol/L Anion Gap (5.0-14.0) mmol/L BUN (7-18) mg/dL Creatinine (0.8-1.3) mg/dL Est Cr Clr Drug Dosing mL/min Estimated GFR (MDRD) (>60) Glucose (74-106) mg/dL Calcium (8.5-10.1) mg/dL Phosphorus (2.5-4.9) mg/dL Magnesium (1.8-2.4) mg/dL Total Bilirubin (0.2-1.0) mg/dL Direct Bilirubin (0.0-0.2) mg/dL Indirect Bilirubin AST (15-37) U/L ALT (12-78) U/L Alkaline Phosphatase (46-116) U/L Ammonia 48 H (11-32) mmol/L Total Protein (6.4-8.2) g/dL Albumin (3.4-5.0) g/dL Globulin (2.3-3.5) g/dL Albumin/Globulin Ratio (1.2-2.2) Urine Opiates Screen Negative (NEGATIVE) Ur Oxycodone Screen Negative (NEGATIVE) Urine Methadone Screen Negative (NEGATIVE) Ur Propoxyphene Screen Negative (NEGATIVE) Ur Barbiturates Screen Negative (NEGATIVE) Ur Tricyclics Screen Negative (NEGATIVE) Ur Phencyclidine Scrn Negative (NEGATIVE) Ur Amphetamine Screen Negative (NEGATIVE) U Methamphetamines Scrn Negative (NEGATIVE) Urine MDMA Screen Negative (NEGATIVE) U Benzodiazepines Scrn Negative (NEGATIVE) U Cocaine Metab Screen Negative (NEGATIVE) U Marijuana (THC) Screen Negative (NEGATIVE) Ethyl Alcohol mg/dL 10/07/19 10/07/19 10/08/19 Range/Units 19:47 20:15 05:35 WBC (4.5-11.0) K/uL RBC (4.30-5.90) M/uL Hgb (12.0-15.0) g/dL Hct (40.0-54.0) % MCV (80-98) fL MCH (27-31) pg MCHC (32-36) % Plt Count (150-400) K/uL Add Manual Diff Neutrophils % (Manual) (36-66) % Band Neutrophils % (5-11) % Lymphocytes % (Manual) (24-44) % Monocytes % (Manual) (2-6) % Nucleated RBCs Anisocytosis Target Cells Stomatocytes PT 14.7 H (9.5-12.0) sec INR 1.36 H (0.80-1.20) Sodium (140-148) mmol/L Potassium (3.6-5.2) mmol/L Chloride (100-108) mmol/L Carbon Dioxide (21-32) mmol/L Anion Gap (5.0-14.0) mmol/L BUN (7-18) mg/dL Creatinine (0.8-1.3) mg/dL Est Cr Clr Drug Dosing mL/min Estimated GFR (MDRD) (>60) Glucose (74-106) mg/dL Calcium (8.5-10.1) mg/dL Phosphorus (2.5-4.9) mg/dL Magnesium 1.3 L D (1.8-2.4) mg/dL Total Bilirubin (0.2-1.0) mg/dL Direct Bilirubin (0.0-0.2) mg/dL Indirect Bilirubin AST (15-37) U/L ALT (12-78) U/L Alkaline Phosphatase (46-116) U/L Ammonia 45 H (11-32) mmol/L Total Protein (6.4-8.2) g/dL Albumin (3.4-5.0) g/dL Globulin (2.3-3.5) g/dL Albumin/Globulin Ratio (1.2-2.2) Urine Opiates Screen (NEGATIVE) Ur Oxycodone Screen (NEGATIVE) Urine Methadone Screen (NEGATIVE) Ur Propoxyphene Screen (NEGATIVE) Ur Barbiturates Screen (NEGATIVE) Ur Tricyclics Screen (NEGATIVE) Ur Phencyclidine Scrn (NEGATIVE) Ur Amphetamine Screen (NEGATIVE) U Methamphetamines Scrn (NEGATIVE) Urine MDMA Screen (NEGATIVE) U Benzodiazepines Scrn (NEGATIVE) U Cocaine Metab Screen (NEGATIVE) U Marijuana (THC) Screen (NEGATIVE) Ethyl Alcohol mg/dL 10/08/19 Range/Units 05:35 WBC (4.5-11.0) K/uL RBC (4.30-5.90) M/uL Hgb (12.0-15.0) g/dL Hct (40.0-54.0) % MCV (80-98) fL MCH (27-31) pg MCHC (32-36) % Plt Count (150-400) K/uL Add Manual Diff Neutrophils % (Manual) (36-66) % Band Neutrophils % (5-11) % Lymphocytes % (Manual) (24-44) % Monocytes % (Manual) (2-6) % Nucleated RBCs Anisocytosis Target Cells Stomatocytes PT (9.5-12.0) sec INR (0.80-1.20) Sodium 128 L (140-148) mmol/L Potassium 4.0 (3.6-5.2) mmol/L Chloride 90 L (100-108) mmol/L Carbon Dioxide 32 (21-32) mmol/L Anion Gap 10.0 (5.0-14.0) mmol/L BUN 21 H (7-18) mg/dL Creatinine 0.8 (0.8-1.3) mg/dL Est Cr Clr Drug Dosing TNP mL/min Estimated GFR (MDRD) > 60 (>60) Glucose 103 (74-106) mg/dL Calcium 7.6 L (8.5-10.1) mg/dL Phosphorus 0.8 L (2.5-4.9) mg/dL Magnesium 2.4 (1.8-2.4) mg/dL Total Bilirubin 11.5 H (0.2-1.0) mg/dL Direct Bilirubin 9.23 H (0.0-0.2) mg/dL Indirect Bilirubin 2.27 AST 175 H (15-37) U/L ALT 175 H (12-78) U/L Alkaline Phosphatase 269 H (46-116) U/L Ammonia (11-32) mmol/L Total Protein 5.4 L (6.4-8.2) g/dL Albumin 2.6 L (3.4-5.0) g/dL Globulin 2.8 (2.3-3.5) g/dL Albumin/Globulin Ratio 0.9 L (1.2-2.2) Urine Opiates Screen (NEGATIVE) Ur Oxycodone Screen (NEGATIVE) Urine Methadone Screen (NEGATIVE) Ur Propoxyphene Screen (NEGATIVE) Ur Barbiturates Screen (NEGATIVE) Ur Tricyclics Screen (NEGATIVE) Ur Phencyclidine Scrn (NEGATIVE) Ur Amphetamine Screen (NEGATIVE) U Methamphetamines Scrn (NEGATIVE) Urine MDMA Screen (NEGATIVE) U Benzodiazepines Scrn (NEGATIVE) U Cocaine Metab Screen (NEGATIVE) U Marijuana (THC) Screen (NEGATIVE) Ethyl Alcohol mg/dL Med Orders - Current: Current Medications Clonidine HCl (Catapres) 0.1 mg PO Q6H PRN PRN Reason: Adrenergic Systems Folic Acid (Folic Acid) 1 mg PO DAILY RUSS Gabapentin (Neurontin) 400 mg PO Q8H RUSS Stop: 10/11/19 22:01 Last Admin: 10/08/19 07:26 Dose: Not Given Documented by: Thiamine HCl 100 mg/ Sodium (Chloride) 51 mls @ 100 mls/hr IV Q24H RUSS Sodium Chloride (Normal Saline) 1,000 mls @ 75 mls/hr IV ASDIRECTED RUSS Lorazepam (Ativan) 0 mg PO ASDIRECTED RUSS; Protocol Lorazepam (Ativan) 0 mg IV ASDIRECTED RUSS; Protocol Last Admin: 10/08/19 09:13 Dose: 1 mg Documented by: Morphine Sulfate (Morphine) 2 mg IVPUSH Q2H PRN PRN Reason: Pain (severe 7-10) Ondansetron HCl (Zofran Odt) 4 mg PO Q6H PRN PRN Reason: Nausea able to take PO Ondansetron HCl (Zofran) 4 mg IV Q4H PRN PRN Reason: Nausea/Vomiting Oxycodone HCl (Oxycodone) 5 mg PO Q4H PRN PRN Reason: Pain (moderate 4-6) Pantoprazole Sodium (Protonix) 40 mg PO BEDTIME [facility] Potassium Chloride (Klor-Con M20) 40 meq PO BIDMEALS [facility] Last Admin: 10/08/19 10:13 Dose: Not Given Documented by: Prednisolone (Orapred 15 Mg/5ml Soln) 40 mg PO DAILY [facility] Sodium Chloride (Saline Flush) 10 ml FLUSH ASDIRECTED PRN PRN Reason: Keep Vein Open Last Admin: 10/07/19 14:54 Dose: 10 ml Documented by: Discontinued Medications Multivitamins/Minerals 10 ml/Thiamine HCl 200 mg/ Folic Acid 1 mg/ Magnesium Sulfate 2 gm/ Dextrose/Lactated Ringer' s 1,016.2 mls @ 500 mls/hr IV ONETIME ONE Stop: 10/07/19 15:50 Last Admin: 10/07/19 14:20 Dose: 500 mls/hr Documented by: Potassium Chloride/Sodium Chloride (Normal Saline With 20 Meq Kcl) 1,000 mls @ 1,000 mls/hr IV ASDIRECTED [facility] Last Admin: 10/07/19 19:59 Dose: 1,000 mls/hr Documented by: Magnesium Sulfate 2 gm/ Premix 50 mls @ 12.5 mls/hr IV ONETIME ONE Stop: 10/07/19 23:58 Last Admin: 10/07/19 20:17 Dose: 25 mls/hr Documented by: Thiamine HCl 100 mg/ Sodium (Chloride) 51 mls @ 100 mls/hr IV DAILY [facility] Sodium Chloride (Normal Saline) 1,000 mls @ 125 mls/hr IV ASDIRECTED [facility] Last Admin: 10/08/19 04:52 Dose: 125 mls/hr Documented by: Albumin Human (Albumin 25%) 25 gm in 100 mls @ 25 mls/hr IV ONETIME ONE Stop: 10/08/19 01:46 Last Admin: 10/07/19 22:05 Dose: 25 mls/hr Documented by: Thiamine HCl 100 mg/ Sodium (Chloride) 51 mls @ 100 mls/hr IV Q24H [facility] Last Admin: 10/08/19 10:08 Dose: 100 mls/hr Documented by: Lorazepam (Ativan) 1 mg PO ONETIME ONE Stop: 10/07/19 19:43 Last Admin: 10/07/19 19:59 Dose: 1 mg Documented by: Lorazepam (Ativan) 1 mg PO Q2H PRN PRN Reason: Withdrawal Symptoms Lorazepam (Ativan) 1 mg IVPUSH Q2H PRN PRN Reason: Withdrawal Symptoms Last Admin: 10/07/19 22:53 Dose: 1 mg Documented by: Magnesium Oxide (Magnesium Oxide) 800 mg PO ONETIME ONE Stop: 10/07/19 20:00 Last Admin: 10/07/19 20:10 Dose: 800 mg Documented by: Pantoprazole Sodium (Protonix) 40 mg PO DAILY [facility] Last Admin: 10/07/19 22:11 Dose: 40 mg Documented by: Penicillin V Potassium (Veetids) 500 mg PO ONETIME ONE Stop: 10/07/19 20:03 Last Admin: 10/07/19 20:10 Dose: 500 mg Documented by: Potassium Chloride (Klor-Con M20) 40 meq PO BID [facility] Last Admin: 10/07/19 22:11 Dose: 40 meq Documented by: Prednisolone (Orapred 15 Mg/5ml Soln) 40 mg PO DAILY [facility] Last Admin: 10/07/19 22:11 Dose: 40 mg Documented by: - Exam Quality Assessment: DVT Prophylaxis General: Sedated, Lethargic Lungs: Clear to Auscultation, Normal Respiratory Effort Cardiovascular: Regular Rate, Regular Rhythm, No Murmurs GI/Abdominal Exam: Soft, Non-Tender, No Organomegaly, Distended Extremities: Non-Tender, No Pedal Edema Sepsis Event Note - Evaluation Sepsis Screening Result: No Definite Risk - Focused Exam Vital Signs: Vital Signs Temp Pulse Resp BP Pulse Ox 10/08/19 10:00 100 32 H 147/96 H 95 10/08/19 08:00 95.5 F L 92 25 H 135/85 97 10/08/19 06:00 98.6 F 102 H 28 H 143/90 H 99 10/08/19 04:00 100 34 H 117/78 93 L 10/08/19 02:00 102 H 32 H 132/81 92 L - Problem List Review Problem List Initiated/Reviewed/Updated: Yes - My Orders Last 24 Hours: My Active Orders 10/08/19 12:45 Sodium Chloride 0.9% [Normal Saline] 1,000 ml IV ASDIRECTED 10/09/19 05:00 CBC WITH AUTO DIFF [HEME] Timed COMPREHENSIVE METABOLIC PN,CMP [CHEM] Timed INR,PT,PROTHROMBIN TIME [COAG] Timed MAGNESIUM [CHEM] Timed - Plan Plan:: ASSESSMENT AND PLAN ACUTE ALCOHOLIC HEPATITIS-he likely has also underlying hepatic cirrhosis related to his longstanding heavy alcohol use. Calculated Maddrey score of 41 on admission -Prednisolone 40 mg p.o. daily -Supportive care, encourage good nutrition -Explore options for further alcohol treatment ALCOHOL WITHDRAWAL DELIRIUM -Banana bag given in the emergency department -Alcohol withdrawal protocol -Gabapentin 400 mg p.o. every 8 hours x4 days, then 200 mg p.o. every 8 hours times an additional 4 days HYPONATREMIA-improved with hydration -Continue IV normal saline -Reassess sodium level in a.m. HYPOKALEMIA-resolved after replacement -Reassess in a.m. MAINTENANCE ISSUES -DVT prophylaxis; SCUDs -GI prophylaxis; Protonix p.o. -Preston catheter; not indicated -Nutrition; regular diet -Nicotine dependence; not currently required CODE STATUS-FULL CODE ADMISSION STATUS-patient will be admitted to inpatient status, expect at least a 2 night hospital stay for evaluation and management of problems as outlined above. At the time of this admission I do not reasonably expected evaluation and management of this problem will require more than a 96 hour hospital stay. DISPOSITION-anticipate discharge to home after the hospital stay. PRIMARY CARE PROVIDER-Dr. Carroll Rubin
[2019-10-08] MEDS: prednisoLONE 15 MG/5 ML Soln UD Cup PO SCH (12:59)
[2019-10-08] MEDS: Folic Acid 1 MG Tab PO SCH (12:59)
--- NOTE | 2019-10-08 16:11 | CRLCR ---
Indication: Decreased oxygen saturation Technique: Chest 1 view Comparison: None Findings/Impression: Normal cardiac size. Patchy opacity in the right lower lung field may represent atelectasis or infiltrate. Vague patchy opacities in the left perihilar region may represent the same. No pneumothorax. No effusion. Consider chest CT for further evaluation. Dictated by Tamiko Yuan MD @ Oct 08 2019 4:07PM Signed by Dr. Tamiko Yuan @ Oct 08 2019 4:09PM
[2019-10-08] MEDS: Haloperidol Lactate 5 MG/ML SDV IVPUSH PRN ×4 (17:12→23:53)
[2019-10-08] MEDS: Albuterol/Ipratropium 3.0-0.5 MG/3 ML Neb Soln NEB PRN (21:39)
[2019-10-08] MEDS: Pantoprazole 40 MG Tab.CR PO SCH (21:39)
[2019-10-09] MEDS: LORazepam 2 MG/ML SDV IV SCH ×13 (00:06→22:55)
[2019-10-09] MEDS: Sodium Chloride 0.9% 1,000 ML IV SCH (00:36)
[2019-10-09] MEDS: Haloperidol Lactate 5 MG/ML SDV IVPUSH PRN ×9 (02:19→23:50)
[2019-10-09] MEDS: Albuterol/Ipratropium 3.0-0.5 MG/3 ML Neb Soln NEB PRN ×2 (02:23→19:36)
[2019-10-09] MEDS: Gabapentin 400 MG Cap PO SCH ×3 (06:03→22:54)
[2019-10-09] MEDS ORDERED: Sodium Chloride 0.9% with KCl 1,000 ML IV SCH (08:15)
[2019-10-09] MEDS: Potassium Chloride 20 MEQ Tab.ER PO SCH ×2 (08:49→17:07)
[2019-10-09] MEDS: Sodium Chloride 0.9% with KCl 1,000 ML IV SCH ×2 (08:55→23:28)
--- NOTE | 2019-10-09 09:09 | CR ---
CHEST: Portable 10/09/2019 at 4:24 AM CLINICAL HISTORY:Hypoxia COMPARISON:10/08/2019 FINDINGS: There is a persistent right infrahilar infiltrate. There is also some ill-definition the right heart margin. This may be lower lobe and middle lobe infiltrates. There is a vague patchy density in the left lower lobe which is increased since prior study suggesting new infiltrate. Impression: Bilateral pneumonic infiltrates. The right has increased slightly. Left is new since prior study
[2019-10-09] MEDS: Potassium Chloride 20 MEQ, Lidocaine 1% 2 ML in Sodium Chloride 0.9% 100 ML IV SCH ×2 (11:00→13:07)
[2019-10-09] MEDS: Thiamine 100 MG in Sodium Chloride 0.9% 50 ML IV SCH (11:15)
[2019-10-09] MEDS: Folic Acid 1 MG Tab PO SCH (11:38)
[2019-10-09] MEDS: prednisoLONE 15 MG/5 ML Soln UD Cup PO SCH (11:39)
--- NOTE | 2019-10-09 16:01 | CT ---
Head wo Cont CLINICAL HISTORY: Decreased consciousness COMPARISON: 2019 TECHNIQUE: Transverse scans were obtained from the base of the skull through the vertex without IV contrast on a multislice, multidetector CT scanner. Auto dosage reduction and iterative reconstruction techniques employed. FINDINGS: No focal abnormal parenchymal density is identified.. There is no mass effect, hemorrhage, or extraaxial collection. The basal cisterns and sulci over the convexities are prominent considering age. The ventricles are mildly prominent. IMPRESSION: No acute intracranial abnormality Moderate atrophic changes considering patient's age
--- NOTE | 2019-10-09 16:10 | CT ---
Chest wo Cont CLINICAL HISTORY: Abnormal chest x-ray, infiltrates TECHNIQUE: Transverse scans were obtained from the thoracic inlet to the lung bases without contrast. Auto dosage reduction in intervertebral reconstruction techniques were employed COMPARISONS: None FINDINGS: There is moderate breathing artifact throughout. This diminishes resolution. There are small patchy areas of consolidation and infiltrate in the right upper lobe. There are large areas of infiltrate and consolidation in the right lower lobe. There is dense consolidation in the right middle lobe. There is bronchial cut off in the bronchus intermedius.. This may be due to mucous plugging There are moderate patchy alveolar infiltrates in the left upper lobe with small patchy areas of peripheral infiltrate in the left lower lobe. Subtle groundglass opacities may be difficult to see due to motion artifact.. No mediastinal mass or lymphadenopathy is identified. There is significant hepatic steatosis and hepatomegaly. IMPRESSION: Large areas of infiltrate and consolidation in the right lung. This is seen to a lesser degree in the left lung and has progressed when compared to recent chest x-ray. There is bronchial cut off in the bronchus intermedius on the right with near complete opacification of the right middle lobe. This is not a typical picture for ARDS or viral pneumonia. Aspiration is a consideration Significant hepatic steatosis and hepatomegaly
--- NOTE | 2019-10-09 16:46 | PCM.PN ---
- General Info Date of Service: 10/09/19 Admission Dx/Problem (Free Text): I am assuming care of Domingo who is 38 years old male. He has a history of recurrent alcoholism. He was admitted from the ER brought in by the family after refusing to come in by EMS. I had written a note to have him transferred but he refused to be transferred by EMS. He has a history of recurrent alcohol consumption and recurrent DT's. Subjective Update: He is unresponsive to verbal stimuli or verbal communication. Functional Status: Reports: Pain Controlled - Review of Systems General: Reports: Weakness Psychiatric: Reports: Confusion, Agitation, Other (withdrawl symptoms and unresponsive to verbal commands but reacts to pain,) - Patient Data Vitals - Most Recent: Last Vital Signs Temp 98.8 F 10/09/19 15:53 Pulse 117 H 10/09/19 11:29 Resp 40 H 10/09/19 11:29 BP 125/82 10/09/19 11:29 Pulse Ox 92 L 10/09/19 11:29 Weight - Most Recent: 154 lb 12.232 oz I&O - Last 24 Hours: Intake & Output 10/09/19 10/09/19 10/09/19 06:59 14:59 22:59 Intake Total 820 Balance 820 Lab Results Last 24 Hours: Laboratory Results - last 24 hr 10/09/19 10/09/19 10/09/19 Range/Units 05:11 05:50 05:50 WBC 6.2 (4.5-11.0) K/uL RBC 3.14 L (4.30-5.90) M/uL Hgb 10.1 L D (12.0-15.0) g/dL Hct 30.8 L (40.0-54.0) % MCV 98 (80-98) fL MCH 32 H (27-31) pg MCHC 33 (32-36) % Plt Count 199 (150-400) K/uL Add Manual Diff Yes Neutrophils % (Manual) 63 (36-66) % Lymphocytes % (Manual) 21 L (24-44) % Monocytes % (Manual) 16 H (2-6) % Target Cells Few Stomatocytes Many H PT 14.0 H (9.5-12.0) sec INR 1.29 H (0.80-1.20) Puncture Site Rt brachial ABG pH 7.504 H (7.350-7.450) ABG pCO2 37.1 (35.0-42.0) mmHg ABG pO2 94.4 (75.0-100.0) mmHg ABG HCO3 29.0 H (22.0-26.0) mmol/L ABG Total CO2 26.3 (23.0-27.0) mmol/L ABG O2 Saturation 97.8 (95.0-98.0) % ABG O2 Content 13.9 L (15.0-23.0) %vol ABG Base Excess 5.9 mm/L ABG Hemoglobin 10.3 L (13.5-18.0) g/dL ABG Oxyhemoglobin 94.6 % ABG Carboxyhemoglobin 2.7 H (0.0-1.6) % ABG Methemoglobin 0.6 % [place] Test Not performed O2 Delivery Device Nasal cannula Oxygen Flow Rate 3.0 L Sodium (140-148) mmol/L Potassium (3.6-5.2) mmol/L Chloride (100-108) mmol/L Carbon Dioxide (21-32) mmol/L Anion Gap (5.0-14.0) mmol/L BUN (7-18) mg/dL Creatinine (0.8-1.3) mg/dL Est Cr Clr Drug Dosing mL/min Estimated GFR (MDRD) (>60) Glucose (74-106) mg/dL Calcium (8.5-10.1) mg/dL Magnesium (1.8-2.4) mg/dL Total Bilirubin (0.2-1.0) mg/dL AST (15-37) U/L ALT (12-78) U/L Alkaline Phosphatase (46-116) U/L Total Protein (6.4-8.2) g/dL Albumin (3.4-5.0) g/dL Globulin (2.3-3.5) g/dL Albumin/Globulin Ratio (1.2-2.2) 10/09/19 Range/Units 05:50 WBC (4.5-11.0) K/uL RBC (4.30-5.90) M/uL Hgb (12.0-15.0) g/dL Hct (40.0-54.0) % MCV (80-98) fL MCH (27-31) pg MCHC (32-36) % Plt Count (150-400) K/uL Add Manual Diff Neutrophils % (Manual) (36-66) % Lymphocytes % (Manual) (24-44) % Monocytes % (Manual) (2-6) % Target Cells Stomatocytes PT (9.5-12.0) sec INR (0.80-1.20) Puncture Site ABG pH (7.350-7.450) ABG pCO2 (35.0-42.0) mmHg ABG pO2 (75.0-100.0) mmHg ABG HCO3 (22.0-26.0) mmol/L ABG Total CO2 (23.0-27.0) mmol/L ABG O2 Saturation (95.0-98.0) % ABG O2 Content (15.0-23.0) %vol ABG Base Excess mm/L ABG Hemoglobin (13.5-18.0) g/dL ABG Oxyhemoglobin % ABG Carboxyhemoglobin (0.0-1.6) % ABG Methemoglobin % [place] Test O2 Delivery Device Oxygen Flow Rate L Sodium 137 L (140-148) mmol/L Potassium 3.3 L (3.6-5.2) mmol/L Chloride 98 L (100-108) mmol/L Carbon Dioxide 28 (21-32) mmol/L Anion Gap 14.3 H (5.0-14.0) mmol/L BUN 19 H (7-18) mg/dL Creatinine 0.8 (0.8-1.3) mg/dL Est Cr Clr Drug Dosing 126.75 mL/min Estimated GFR (MDRD) > 60 (>60) Glucose 104 (74-106) mg/dL Calcium 7.8 L (8.5-10.1) mg/dL Magnesium 2.0 (1.8-2.4) mg/dL Total Bilirubin 13.2 H (0.2-1.0) mg/dL AST 183 H (15-37) U/L ALT 164 H (12-78) U/L Alkaline Phosphatase 316 H (46-116) U/L Total Protein 4.9 L (6.4-8.2) g/dL Albumin 2.2 L (3.4-5.0) g/dL Globulin 2.7 (2.3-3.5) g/dL Albumin/Globulin Ratio 0.8 L (1.2-2.2) Med Orders - Current: Current Medications Albuterol/Ipratropium (Duoneb 3.0-0.5 Mg/3 Ml) 3 ml NEB Q4H PRN PRN Reason: Shortness of Breath Last Admin: 10/09/19 02:23 Dose: 3 ml Documented by: Clonidine HCl (Catapres) 0.1 mg PO Q6H PRN PRN Reason: Adrenergic Systems Folic Acid (Folic Acid) 1 mg PO DAILY [facility] Last Admin: 10/09/19 11:38 Dose: Not Given Documented by: Gabapentin (Neurontin) 400 mg PO Q8H [facility] Stop: 10/11/19 22:01 Last Admin: 10/09/19 14:56 Dose: Not Given Documented by: Haloperidol Lactate (Haldol) 2.5 mg IVPUSH Q1H PRN PRN Reason: Other Last Admin: 10/09/19 13:11 Dose: 2.5 mg Documented by: Thiamine HCl 100 mg/ Sodium (Chloride) 51 mls @ 100 mls/hr IV Q24H [facility] Last Admin: 10/09/19 11:15 Dose: 100 mls/hr Documented by: Sodium Chloride (Normal Saline) 1,000 mls @ 75 mls/hr IV ASDIRECTED [facility] Last Admin: 10/09/19 00:36 Dose: 75 mls/hr Documented by: Potassium Chloride/Sodium Chloride (Normal Saline With 40 Meq Kcl) 1,000 mls @ 75 mls/hr IV ASDIRECTED [facility] Last Admin: 10/09/19 08:55 Dose: 75 mls/hr Documented by: Potassium Chloride/Sodium Chloride (Normal Saline With 40 Meq Kcl) 1,000 mls @ 75 mls/hr IV ASDIRECTED [facility] Lorazepam (Ativan) 0 mg PO ASDIRECTED [facility]; Protocol Lorazepam (Ativan) 0 mg IV ASDIRECTED [facility]; Protocol Last Admin: 10/09/19 15:19 Dose: 2 mg Documented by: Morphine Sulfate (Morphine) 2 mg IVPUSH Q2H PRN PRN Reason: Pain (severe 7-10) Ondansetron HCl (Zofran Odt) 4 mg PO Q6H PRN PRN Reason: Nausea able to take PO Ondansetron HCl (Zofran) 4 mg IV Q4H PRN PRN Reason: Nausea/Vomiting Oxycodone HCl (Oxycodone) 5 mg PO Q4H PRN PRN Reason: Pain (moderate 4-6) Pantoprazole Sodium (Protonix) 40 mg PO BEDTIME [facility] Last Admin: 10/08/19 21:39 Dose: Not Given Documented by: Potassium Chloride (Klor-Con M20) 40 meq PO BIDMEALS [facility] Last Admin: 10/09/19 08:49 Dose: Not Given Documented by: Prednisolone (Orapred 15 Mg/5ml Soln) 40 mg PO DAILY [facility] Last Admin: 10/09/19 11:39 Dose: Not Given Documented by: Sodium Chloride (Saline Flush) 10 ml FLUSH ASDIRECTED PRN PRN Reason: Keep Vein Open Last Admin: 10/07/19 14:54 Dose: 10 ml Documented by: Discontinued Medications Multivitamins/Minerals 10 ml/Thiamine HCl 200 mg/ Folic Acid 1 mg/ Magnesium Sulfate 2 gm/ Dextrose/Lactated Ringer' s 1,016.2 mls @ 500 mls/hr IV ONETIME ONE Stop: 10/07/19 15:50 Last Admin: 10/07/19 14:20 Dose: 500 mls/hr Documented by: Potassium Chloride/Sodium Chloride (Normal Saline With 20 Meq Kcl) 1,000 mls @ 1,000 mls/hr IV ASDIRECTED [facility] Last Admin: 10/07/19 19:59 Dose: 1,000 mls/hr Documented by: Magnesium Sulfate 2 gm/ Premix 50 mls @ 12.5 mls/hr IV ONETIME ONE Stop: 10/07/19 23:58 Last Admin: 10/07/19 20:17 Dose: 25 mls/hr Documented by: Thiamine HCl 100 mg/ Sodium (Chloride) 51 mls @ 100 mls/hr IV DAILY [facility] Sodium Chloride (Normal Saline) 1,000 mls @ 125 mls/hr IV ASDIRECTED [facility] Last Admin: 10/08/19 04:52 Dose: 125 mls/hr Documented by: Albumin Human (Albumin 25%) 25 gm in 100 mls @ 25 mls/hr IV ONETIME ONE Stop: 10/08/19 01:46 Last Admin: 10/07/19 22:05 Dose: 25 mls/hr Documented by: Thiamine HCl 100 mg/ Sodium (Chloride) 51 mls @ 100 mls/hr IV Q24H [facility] Last Admin: 10/08/19 10:08 Dose: 100 mls/hr Documented by: Potassium Chloride 20 meq/Lidocaine HCl 2 ml/ Sodium Chloride 112 mls @ 56 mls/hr IV Q2H [facility] Stop: 10/09/19 13:59 Last Admin: 10/09/19 13:07 Dose: 56 mls/hr Documented by: Lorazepam (Ativan) 1 mg PO ONETIME ONE Stop: 10/07/19 19:43 Last Admin: 10/07/19 19:59 Dose: 1 mg Documented by: Lorazepam (Ativan) 1 mg PO Q2H PRN PRN Reason: Withdrawal Symptoms Lorazepam (Ativan) 1 mg IVPUSH Q2H PRN PRN Reason: Withdrawal Symptoms Last Admin: 10/07/19 22:53 Dose: 1 mg Documented by: Magnesium Oxide (Magnesium Oxide) 800 mg PO ONETIME ONE Stop: 10/07/19 20:00 Last Admin: 10/07/19 20:10 Dose: 800 mg Documented by: Pantoprazole Sodium (Protonix) 40 mg PO DAILY [facility] Last Admin: 10/07/19 22:11 Dose: 40 mg Documented by: Penicillin V Potassium (Veetids) 500 mg PO ONETIME ONE Stop: 10/07/19 20:03 Last Admin: 10/07/19 20:10 Dose: 500 mg Documented by: Potassium Chloride (Klor-Con M20) 40 meq PO BID [facility] Last Admin: 10/07/19 22:11 Dose: 40 meq Documented by: Prednisolone (Orapred 15 Mg/5ml Soln) 40 mg PO DAILY [facility] Last Admin: 10/07/19 22:11 Dose: 40 mg Documented by: - Exam General: Sedated HEENT: Scleral Icterus Lungs: Other (course breath sounds bilaterally with a rapid rate with shallow breaths.) GI/Abdominal Exam: Tender Peripheral Pulses: 1+: Radial (L), Radial (R) Skin: Warm, Dry, Intact Neurological: Reflexes Equal Bilateral Psy/Mental Status: Hallucinations, Withdrawal Symptoms Sepsis Event Note - Evaluation Sepsis Screening Result: Severe Sepsis Risk - Focused Exam Vital Signs: Vital Signs Temp Pulse Resp BP Pulse Ox 10/09/19 15:53 98.8 F 10/09/19 11:29 99.0 F 117 H 40 H 125/82 92 L 10/09/19 10:00 124 H 36 H 125/82 92 L 10/09/19 07:24 98.4 F 10/09/19 07:00 120 H 40 H 120/76 93 L 10/09/19 06:00 98.1 F 115 H 40 H 120/76 95 10/09/19 05:00 118 H 61 H 131/91 H 92 L - Problem List Review Problem List Initiated/Reviewed/Updated: Yes - My Orders Last 24 Hours: My Active Orders 10/08/19 20:28 RT Aerosol Therapy [RC] ASDIRECTED Albuterol/Ipratropium [DuoNeb 3.0-0.5 MG/3 ML] 3 ml NEB Q4H PRN 10/09/19 08:15 Sodium Chloride 0.9% with KCl [Normal Saline with 40 mEq KCl] 1,000 ml IV ASDIRECTED 10/09/19 08:30 Sodium Chloride 0.9% with KCl [Normal Saline with 40 mEq KCl] 1,000 ml IV ASDIRECTED - Plan Plan:: ASSESSMENT AND PLAN ACUTE ALCOHOLIC HEPATITIS-he likely has also underlying hepatic cirrhosis related to his longstanding heavy alcohol use. Calculated Maddrey score of 41 on admission -Prednisolone 40 mg p.o. daily -Supportive care, encourage good nutrition -Explore options for further alcohol treatment receiving Ativan and Haldol ALCOHOL WITHDRAWAL DELIRIUM -Banana bag given in the emergency department -Alcohol withdrawal protocol -Gabapentin 400 mg p.o. every 8 hours x4 days, then 200 mg p.o. every 8 hours times an additional 4 days HYPONATREMIA-resp;julianna at 137 with hydration -Continue IV normal saline -Reassess sodium level in a.m. HYPOKALEMIA-3.3 this morning and added K+ to the IV. MAINTENANCE ISSUES -DVT prophylaxis; SCUDs -GI prophylaxis; Protonix p.o. -Preston catheter; not indicated -Nutrition; regular diet -Nicotine dependence; not currently required CODE STATUS-FULL CODE ADMISSION STATUS-patient will be admitted to inpatient status, expect at least a 2 night hospital stay for evaluation and management of problems as outlined above. At the time of this admission I do not reasonably expected evaluation and management of this problem will require more than a 96 hour hospital stay. DISPOSITION-anticipate discharge to home after the hospital stay. PRIMARY CARE PROVIDER-Dr. Carroll Rubin There is no improvement in his condition. I did get a CT of the head and no acute pathology is evident. CT of the lung was done after a repeat CXR today. The CT showed a large infiltrate and consolidation in the right lung. This is seen to a lesser degree in the left lung and has progressed when compared to the CXR from yesterday. Rocephin was started 2 grams today then 1 gram daily. The bili is up to 13 from 10 upon admission. Overall prognosis is guarded. The INR has improved to 1.29 from 1.74 upon admission.
[2019-10-09] MEDS ORDERED: cefTRIAXone 2 GM in Sodium Chloride 0.9% 50 ML IV ONE (17:00)
[2019-10-09] MEDS: Morphine 2 MG/ML SYRINGE IVPUSH PRN ×2 (20:56→23:49)
[2019-10-09] MEDS: Pantoprazole 40 MG Tab.CR PO SCH (22:54)
[2019-10-10] MEDS: Albuterol/Ipratropium 3.0-0.5 MG/3 ML Neb Soln NEB PRN (01:48)
[2019-10-10] MEDS: LORazepam 2 MG/ML SDV IV SCH ×5 (02:50→16:59)
[2019-10-10] MEDS: Gabapentin 400 MG Cap PO SCH ×3 (05:52→23:27)
[2019-10-10] MEDS: Potassium Chloride 20 MEQ Tab.ER PO SCH ×2 (08:15→16:51)
--- NOTE | 2019-10-10 08:22 | PCM.PN ---
- General Info Date of Service: 10/10/19 Subjective Update: Domingo is unresponsive to verbal command. Functional Status: Reports: Pain Controlled - Review of Systems General: Reports: Other (lethargic) Pulmonary: Reports: Other (rapid breathing) - Patient Data Vitals - Most Recent: Last Vital Signs Temp 98.4 F 10/10/19 04:00 Pulse 103 H 10/10/19 07:00 Resp 56 H 10/10/19 07:00 BP 118/72 10/10/19 07:00 Pulse Ox 94 L 10/10/19 07:00 Weight - Most Recent: 154 lb 12.232 oz I&O - Last 24 Hours: Intake & Output 10/09/19 10/10/19 10/10/19 22:59 06:59 14:59 Intake Total 1100 Balance 1100 Lab Results Last 24 Hours: Laboratory Results - last 24 hr 10/10/19 10/10/19 10/10/19 Range/Units 05:32 05:32 05:32 PT 36.6 H (9.5-12.0) sec INR 3.44 H D (0.80-1.20) Puncture Site Rt brachial ABG pH 7.448 (7.350-7.450) ABG pCO2 41.1 (35.0-42.0) mmHg ABG pO2 68.2 L (75.0-100.0) mmHg ABG HCO3 28.0 H (22.0-26.0) mmol/L ABG Total CO2 26.0 (23.0-27.0) mmol/L ABG O2 Saturation 93.4 L (95.0-98.0) % ABG O2 Content 12.4 L (15.0-23.0) %vol ABG Base Excess 4.1 mm/L ABG Hemoglobin 9.5 L (13.5-18.0) g/dL ABG Oxyhemoglobin 91.7 % ABG Carboxyhemoglobin 1.3 (0.0-1.6) % ABG Methemoglobin 0.5 % [place] Test Passed O2 Delivery Device Nasal cannula Oxygen Flow Rate 2.0 L Sodium 145 (140-148) mmol/L Potassium 4.0 (3.6-5.2) mmol/L Chloride 109 H (100-108) mmol/L Carbon Dioxide 28 (21-32) mmol/L Anion Gap 12.0 (5.0-14.0) mmol/L BUN 16 (7-18) mg/dL Creatinine 0.7 L (0.8-1.3) mg/dL Est Cr Clr Drug Dosing 144.86 mL/min Estimated GFR (MDRD) > 60 (>60) Glucose 108 H (74-106) mg/dL Calcium 8.1 L (8.5-10.1) mg/dL Total Bilirubin 13.9 H (0.2-1.0) mg/dL AST 148 H (15-37) U/L ALT 150 H (12-78) U/L Alkaline Phosphatase 276 H (46-116) U/L Total Protein 4.8 L (6.4-8.2) g/dL Albumin 1.9 L (3.4-5.0) g/dL Globulin 2.9 (2.3-3.5) g/dL Albumin/Globulin Ratio 0.7 L (1.2-2.2) Med Orders - Current: Current Medications Albuterol/Ipratropium (Duoneb 3.0-0.5 Mg/3 Ml) 3 ml NEB Q4H PRN PRN Reason: Shortness of Breath Last Admin: 10/10/19 01:48 Dose: 3 ml Documented by: Clonidine HCl (Catapres) 0.1 mg PO Q6H PRN PRN Reason: Adrenergic Systems Folic Acid (Folic Acid) 1 mg PO DAILY [facility] Last Admin: 10/09/19 11:38 Dose: Not Given Documented by: Gabapentin (Neurontin) 400 mg PO Q8H [facility] Stop: 10/11/19 22:01 Last Admin: 10/10/19 05:52 Dose: Not Given Documented by: Haloperidol Lactate (Haldol) 2.5 mg IVPUSH Q1H PRN PRN Reason: Other Last Admin: 10/09/19 23:50 Dose: 2.5 mg Documented by: Thiamine HCl 100 mg/ Sodium (Chloride) 51 mls @ 100 mls/hr IV Q24H [facility] Last Admin: 10/09/19 11:15 Dose: 100 mls/hr Documented by: Sodium Chloride (Normal Saline) 1,000 mls @ 75 mls/hr IV ASDIRECTED [facility] Last Admin: 10/09/19 00:36 Dose: 75 mls/hr Documented by: Potassium Chloride/Sodium Chloride (Normal Saline With 40 Meq Kcl) 1,000 mls @ 75 mls/hr IV ASDIRECTED [facility] Last Admin: 10/09/19 23:28 Dose: 75 mls/hr Documented by: Potassium Chloride/Sodium Chloride (Normal Saline With 40 Meq Kcl) 1,000 mls @ 75 mls/hr IV ASDIRECTED [facility] Ceftriaxone Sodium 1 gm/ (Sodium Chloride) 50 mls @ 100 mls/hr IV Q24H [facility] Lorazepam (Ativan) 0 mg PO ASDIRECTED [facility]; Protocol Lorazepam (Ativan) 0 mg IV ASDIRECTED [facility]; Protocol Last Admin: 10/10/19 06:31 Dose: 2 mg Documented by: Morphine Sulfate (Morphine) 2 mg IVPUSH Q2H PRN PRN Reason: Pain (severe 7-10) Last Admin: 10/09/19 23:49 Dose: 2 mg Documented by: Ondansetron HCl (Zofran Odt) 4 mg PO Q6H PRN PRN Reason: Nausea able to take PO Ondansetron HCl (Zofran) 4 mg IV Q4H PRN PRN Reason: Nausea/Vomiting Oxycodone HCl (Oxycodone) 5 mg PO Q4H PRN PRN Reason: Pain (moderate 4-6) Pantoprazole Sodium (Protonix) 40 mg PO BEDTIME [facility] Last Admin: 10/09/19 22:54 Dose: Not Given Documented by: Potassium Chloride (Klor-Con M20) 40 meq PO BIDMEALS [facility] Last Admin: 10/09/19 17:07 Dose: Not Given Documented by: Prednisolone (Orapred 15 Mg/5ml Soln) 40 mg PO DAILY [facility] Last Admin: 10/09/19 11:39 Dose: Not Given Documented by: Sodium Chloride (Saline Flush) 10 ml FLUSH ASDIRECTED PRN PRN Reason: Keep Vein Open Last Admin: 10/07/19 14:54 Dose: 10 ml Documented by: Discontinued Medications Multivitamins/Minerals 10 ml/Thiamine HCl 200 mg/ Folic Acid 1 mg/ Magnesium Sulfate 2 gm/ Dextrose/Lactated Ringer' s 1,016.2 mls @ 500 mls/hr IV ONETIME ONE Stop: 10/07/19 15:50 Last Admin: 10/07/19 14:20 Dose: 500 mls/hr Documented by: Potassium Chloride/Sodium Chloride (Normal Saline With 20 Meq Kcl) 1,000 mls @ 1,000 mls/hr IV ASDIRECTED [facility] Last Admin: 10/07/19 19:59 Dose: 1,000 mls/hr Documented by: Magnesium Sulfate 2 gm/ Premix 50 mls @ 12.5 mls/hr IV ONETIME ONE Stop: 10/07/19 23:58 Last Admin: 10/07/19 20:17 Dose: 25 mls/hr Documented by: Thiamine HCl 100 mg/ Sodium (Chloride) 51 mls @ 100 mls/hr IV DAILY [facility] Sodium Chloride (Normal Saline) 1,000 mls @ 125 mls/hr IV ASDIRECTED [facility] Last Admin: 10/08/19 04:52 Dose: 125 mls/hr Documented by: Albumin Human (Albumin 25%) 25 gm in 100 mls @ 25 mls/hr IV ONETIME ONE Stop: 10/08/19 01:46 Last Admin: 10/07/19 22:05 Dose: 25 mls/hr Documented by: Thiamine HCl 100 mg/ Sodium (Chloride) 51 mls @ 100 mls/hr IV Q24H [facility] Last Admin: 10/08/19 10:08 Dose: 100 mls/hr Documented by: Potassium Chloride 20 meq/Lidocaine HCl 2 ml/ Sodium Chloride 112 mls @ 56 mls/hr IV Q2H [facility] Stop: 10/09/19 13:59 Last Admin: 10/09/19 13:07 Dose: 56 mls/hr Documented by: Ceftriaxone Sodium 2 gm/ (Sodium Chloride) 50 mls @ 100 mls/hr IV ONETIME ONE Stop: 10/09/19 17:29 Last Admin: 10/09/19 17:08 Dose: 100 mls/hr Documented by: Lorazepam (Ativan) 1 mg PO ONETIME ONE Stop: 10/07/19 19:43 Last Admin: 10/07/19 19:59 Dose: 1 mg Documented by: Lorazepam (Ativan) 1 mg PO Q2H PRN PRN Reason: Withdrawal Symptoms Lorazepam (Ativan) 1 mg IVPUSH Q2H PRN PRN Reason: Withdrawal Symptoms Last Admin: 10/07/19 22:53 Dose: 1 mg Documented by: Magnesium Oxide (Magnesium Oxide) 800 mg PO ONETIME ONE Stop: 10/07/19 20:00 Last Admin: 10/07/19 20:10 Dose: 800 mg Documented by: Pantoprazole Sodium (Protonix) 40 mg PO DAILY [facility] Last Admin: 10/07/19 22:11 Dose: 40 mg Documented by: Penicillin V Potassium (Veetids) 500 mg PO ONETIME ONE Stop: 10/07/19 20:03 Last Admin: 10/07/19 20:10 Dose: 500 mg Documented by: Potassium Chloride (Klor-Con M20) 40 meq PO BID [facility] Last Admin: 10/07/19 22:11 Dose: 40 meq Documented by: Prednisolone (Orapred 15 Mg/5ml Soln) 40 mg PO DAILY [facility] Last Admin: 10/07/19 22:11 Dose: 40 mg Documented by: - Exam General: Obtunded HEENT: Scleral Icterus Neck: Supple Lungs: Other (course breath sounds) Cardiovascular: Regular Rate GI/Abdominal Exam: Normal Bowel Sounds, Soft Extremities: Normal Inspection Peripheral Pulses: 1+: Radial (L), Radial (R) Skin: Warm, Dry, Intact Psy/Mental Status: Withdrawal Symptoms Sepsis Event Note - Evaluation Sepsis Screening Result: Severe Sepsis Risk - Focused Exam Vital Signs: Vital Signs Temp Pulse Resp BP Pulse Ox 10/10/19 07:00 103 H 56 H 118/72 94 L 10/10/19 06:00 107 H 59 H 111/69 94 L 10/10/19 05:00 107 H 36 H 103/59 L 94 L 10/10/19 04:00 98.4 F 108 H 37 H 104/52 L 95 10/10/19 03:00 112 H 58 H 100/51 L 91 L 10/10/19 02:00 113 H 53 H 114/70 93 L 10/10/19 01:00 109 H 49 H 112/61 92 L 10/10/19 00:00 99.1 F 107 H 60 H 121/68 93 L 10/09/19 23:42 99.1 F 10/09/19 23:00 105 H 51 H 121/68 94 L 10/09/19 22:00 108 H 60 H 111/66 94 L 10/09/19 21:00 108 H 54 H 94 L - Problem List Review Problem List Initiated/Reviewed/Updated: Yes - My Orders Last 24 Hours: My Active Orders 10/09/19 08:15 Sodium Chloride 0.9% with KCl [Normal Saline with 40 mEq KCl] 1,000 ml IV ASDIRECTED 10/09/19 08:30 Sodium Chloride 0.9% with KCl [Normal Saline with 40 mEq KCl] 1,000 ml IV ASDIRECTED 10/10/19 17:00 [id number] [Rocephin] 1 gm Sodium Chloride 0.9% [Normal Saline] 50 ml IV Q24H - Plan Plan:: Assessment/Plan #1. 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 Bilirubin is 13.9 was 10 upon admission. Liver functions elevated but dropping slowly most likely secondary to liver cells deterioration. No Ascetic fluid evident. Mental deterioration secondary to liver failure. CT was unremarkable. Will get Ammonia level today. #2. Lung mass -infiltrate. Continue with Rocephin. Overall prognosis is guarded.
[2019-10-10] MEDS: prednisoLONE 15 MG/5 ML Soln UD Cup PO SCH (09:13)
[2019-10-10] MEDS: Folic Acid 1 MG Tab PO SCH (09:13)
[2019-10-10] MEDS: Thiamine 100 MG in Sodium Chloride 0.9% 50 ML IV SCH (10:48)
[2019-10-10] MEDS: Sodium Chloride 0.9% with KCl 1,000 ML IV SCH (13:04)
[2019-10-10] MEDS ORDERED: cefTRIAXone 1 GM in Sodium Chloride 0.9% 50 ML IV SCH (17:00)
[2019-10-10 18:09] VITALS: PULSE 111
[2019-10-10] MEDS: Pantoprazole 40 MG Tab.CR PO SCH (23:27)
[2019-10-11] MEDS ORDERED: Dimethicone 20%/Zinc Oxide 25% 56 GM Spray Bottle TOP PRN (01:16)
[2019-10-11] MEDS: Morphine 2 MG/ML SYRINGE IVPUSH PRN ×2 (01:30→10:48)
[2019-10-11] MEDS: Sodium Chloride 0.9% with KCl 1,000 ML IV SCH (02:40)
[2019-10-11] MEDS: Gabapentin 400 MG Cap PO SCH ×2 (06:30→13:13)
[2019-10-11] MEDS: Potassium Chloride 20 MEQ Tab.ER PO SCH (07:48)
--- NOTE | 2019-10-11 08:08 | PCM.PN ---
- General Info Date of Service: 10/11/19 Functional Status: Reports: Pain Controlled - Review of Systems General: Reports: Other (no verbal response) Pulmonary: Reports: Other (rapid breathing) Cardiovascular: Reports: No Symptoms Gastrointestinal: Reports: No Symptoms Genitourinary: Reports: No Symptoms Musculoskeletal: Reports: No Symptoms (obtunded) Neurological: Reports: Other - Patient Data Vitals - Most Recent: Last Vital Signs Temp 98.4 F 10/11/19 08:00 Pulse 111 H 10/10/19 18:00 Resp 77 H 10/11/19 08:00 BP 122/73 10/11/19 08:00 Pulse Ox 95 10/11/19 08:00 Weight - Most Recent: 154 lb 12.232 oz I&O - Last 24 Hours: Intake & Output 10/10/19 10/11/19 10/11/19 22:59 06:59 14:59 Intake Total 2663 Balance 2663 Lab Results Last 24 Hours: Laboratory Results - last 24 hr 10/10/19 10/11/19 10/11/19 Range/Units 09:10 04:20 04:20 WBC 8.5 (4.5-11.0) K/uL RBC 3.16 L (4.30-5.90) M/uL Hgb 10.3 L (12.0-15.0) g/dL Hct 31.9 L (40.0-54.0) % MCV 101 H (80-98) fL MCH 33 H (27-31) pg MCHC 32 (32-36) % Plt Count 120 L (150-400) K/uL Add Manual Diff Yes Neutrophils % (Manual) 56 (36-66) % Band Neutrophils % 9 (5-11) % Lymphocytes % (Manual) 25 (24-44) % Monocytes % (Manual) 10 H (2-6) % Anisocytosis Few Target Cells Few Stomatocytes Many H PT (9.5-12.0) sec INR (0.80-1.20) Puncture Site Rt brachial ABG pH 7.437 (7.350-7.450) ABG pCO2 37.8 (35.0-42.0) mmHg ABG pO2 54.4 L (75.0-100.0) mmHg ABG HCO3 25.1 (22.0-26.0) mmol/L ABG Total CO2 23.0 (23.0-27.0) mmol/L ABG O2 Saturation 87.6 L (95.0-98.0) % ABG O2 Content 12.7 L (15.0-23.0) %vol ABG Base Excess 1.4 mm/L ABG Hemoglobin 10.5 L (13.5-18.0) g/dL ABG Oxyhemoglobin 86.1 % ABG Carboxyhemoglobin 1.3 (0.0-1.6) % ABG Methemoglobin 0.4 % [place] Test Passed O2 Delivery Device Nasal cannula Oxygen Flow Rate 3.0 L Sodium (140-148) mmol/L Potassium (3.6-5.2) mmol/L Chloride (100-108) mmol/L Carbon Dioxide (21-32) mmol/L Anion Gap (5.0-14.0) mmol/L BUN (7-18) mg/dL Creatinine (0.8-1.3) mg/dL Est Cr Clr Drug Dosing mL/min Estimated GFR (MDRD) (>60) Glucose (74-106) mg/dL Calcium (8.5-10.1) mg/dL Total Bilirubin (0.2-1.0) mg/dL AST (15-37) U/L ALT (12-78) U/L Alkaline Phosphatase (46-116) U/L Ammonia < 10 L (11-32) mmol/L Total Protein (6.4-8.2) g/dL Albumin (3.4-5.0) g/dL Globulin (2.3-3.5) g/dL Albumin/Globulin Ratio (1.2-2.2) 10/11/19 10/11/19 Range/Units 04:20 04:30 WBC (4.5-11.0) K/uL RBC (4.30-5.90) M/uL Hgb (12.0-15.0) g/dL Hct (40.0-54.0) % MCV (80-98) fL MCH (27-31) pg MCHC (32-36) % Plt Count (150-400) K/uL Add Manual Diff Neutrophils % (Manual) (36-66) % Band Neutrophils % (5-11) % Lymphocytes % (Manual) (24-44) % Monocytes % (Manual) (2-6) % Anisocytosis Target Cells Stomatocytes PT 31.4 H (9.5-12.0) sec INR 2.94 H (0.80-1.20) Puncture Site ABG pH (7.350-7.450) ABG pCO2 (35.0-42.0) mmHg ABG pO2 (75.0-100.0) mmHg ABG HCO3 (22.0-26.0) mmol/L ABG Total CO2 (23.0-27.0) mmol/L ABG O2 Saturation (95.0-98.0) % ABG O2 Content (15.0-23.0) %vol ABG Base Excess mm/L ABG Hemoglobin (13.5-18.0) g/dL ABG Oxyhemoglobin % ABG Carboxyhemoglobin (0.0-1.6) % ABG Methemoglobin % [place] Test O2 Delivery Device Oxygen Flow Rate L Sodium 152 H (140-148) mmol/L Potassium 4.1 (3.6-5.2) mmol/L Chloride 117 H (100-108) mmol/L Carbon Dioxide 24 (21-32) mmol/L Anion Gap 15.1 H (5.0-14.0) mmol/L BUN 14 (7-18) mg/dL Creatinine 0.8 (0.8-1.3) mg/dL Est Cr Clr Drug Dosing 125.53 mL/min Estimated GFR (MDRD) > 60 (>60) Glucose 91 (74-106) mg/dL Calcium 8.2 L (8.5-10.1) mg/dL Total Bilirubin 15.4 H (0.2-1.0) mg/dL AST 144 H (15-37) U/L ALT 150 H (12-78) U/L Alkaline Phosphatase 287 H (46-116) U/L Ammonia (11-32) mmol/L Total Protein 5.2 L (6.4-8.2) g/dL Albumin 1.8 L (3.4-5.0) g/dL Globulin 3.4 (2.3-3.5) g/dL Albumin/Globulin Ratio 0.5 L (1.2-2.2) Med Orders - Current: Current Medications Albuterol/Ipratropium (Duoneb 3.0-0.5 Mg/3 Ml) 3 ml NEB Q4H PRN PRN Reason: Shortness of Breath Last Admin: 10/10/19 01:48 Dose: 3 ml Documented by: Clonidine HCl (Catapres) 0.1 mg PO Q6H PRN PRN Reason: Adrenergic Systems Dimethicone/Zinc Oxide (Rash Relief-Zinc Oxide [place]) 1 gm TOP ASDIRECTED PRN PRN Reason: Rash Last Admin: 10/11/19 02:43 Dose: 1 applic Documented by: Folic Acid (Folic Acid) 1 mg PO DAILY [facility] Last Admin: 10/10/19 09:13 Dose: Not Given Documented by: Gabapentin (Neurontin) 400 mg PO Q8H [facility] Stop: 10/11/19 22:01 Last Admin: 10/11/19 06:30 Dose: Not Given Documented by: Haloperidol Lactate (Haldol) 2.5 mg IVPUSH Q1H PRN PRN Reason: Other Last Admin: 10/09/19 23:50 Dose: 2.5 mg Documented by: Thiamine HCl 100 mg/ Sodium (Chloride) 51 mls @ 100 mls/hr IV Q24H [facility] Last Admin: 10/10/19 10:48 Dose: 100 mls/hr Documented by: Potassium Chloride/Sodium Chloride (Normal Saline With 40 Meq Kcl) 1,000 mls @ 75 mls/hr IV ASDIRECTED [facility] Last Admin: 10/11/19 02:40 Dose: 75 mls/hr Documented by: Ceftriaxone Sodium 1 gm/ (Sodium Chloride) 50 mls @ 100 mls/hr IV Q24H [facility] Last Admin: 10/10/19 17:01 Dose: 100 mls/hr Documented by: Lorazepam (Ativan) 0 mg PO ASDIRECTED [facility]; Protocol Lorazepam (Ativan) 0 mg IV ASDIRECTED [facility]; Protocol Last Admin: 10/10/19 16:59 Dose: 1 mg Documented by: Morphine Sulfate (Morphine) 2 mg IVPUSH Q2H PRN PRN Reason: Pain (severe 7-10) Last Admin: 10/11/19 01:30 Dose: 2 mg Documented by: Ondansetron HCl (Zofran Odt) 4 mg PO Q6H PRN PRN Reason: Nausea able to take PO Ondansetron HCl (Zofran) 4 mg IV Q4H PRN PRN Reason: Nausea/Vomiting Oxycodone HCl (Oxycodone) 5 mg PO Q4H PRN PRN Reason: Pain (moderate 4-6) Pantoprazole Sodium (Protonix) 40 mg PO BEDTIME [facility] Last Admin: 10/10/19 23:27 Dose: Not Given Documented by: Potassium Chloride (Klor-Con M20) 40 meq PO BIDMEALS [facility] Last Admin: 10/11/19 07:48 Dose: Not Given Documented by: Prednisolone (Orapred 15 Mg/5ml Soln) 40 mg PO DAILY [facility] Last Admin: 10/10/19 09:13 Dose: Not Given Documented by: Sodium Chloride (Saline Flush) 10 ml FLUSH ASDIRECTED PRN PRN Reason: Keep Vein Open Last Admin: 10/07/19 14:54 Dose: 10 ml Documented by: Discontinued Medications Multivitamins/Minerals 10 ml/Thiamine HCl 200 mg/ Folic Acid 1 mg/ Magnesium Sulfate 2 gm/ Dextrose/Lactated Ringer' s 1,016.2 mls @ 500 mls/hr IV ONETIME ONE Stop: 10/07/19 15:50 Last Admin: 10/07/19 14:20 Dose: 500 mls/hr Documented by: Potassium Chloride/Sodium Chloride (Normal Saline With 20 Meq Kcl) 1,000 mls @ 1,000 mls/hr IV ASDIRECTED [facility] Last Admin: 10/07/19 19:59 Dose: 1,000 mls/hr Documented by: Magnesium Sulfate 2 gm/ Premix 50 mls @ 12.5 mls/hr IV ONETIME ONE Stop: 10/07/19 23:58 Last Admin: 10/07/19 20:17 Dose: 25 mls/hr Documented by: Thiamine HCl 100 mg/ Sodium (Chloride) 51 mls @ 100 mls/hr IV DAILY [facility] Sodium Chloride (Normal Saline) 1,000 mls @ 125 mls/hr IV ASDIRECTED [facility] Last Admin: 10/08/19 04:52 Dose: 125 mls/hr Documented by: Albumin Human (Albumin 25%) 25 gm in 100 mls @ 25 mls/hr IV ONETIME ONE Stop: 10/08/19 01:46 Last Admin: 10/07/19 22:05 Dose: 25 mls/hr Documented by: Thiamine HCl 100 mg/ Sodium (Chloride) 51 mls @ 100 mls/hr IV Q24H [facility] Last Admin: 10/08/19 10:08 Dose: 100 mls/hr Documented by: Sodium Chloride (Normal Saline) 1,000 mls @ 75 mls/hr IV ASDIRECTED [facility] Last Admin: 10/09/19 00:36 Dose: 75 mls/hr Documented by: Potassium Chloride/Sodium Chloride (Normal Saline With 40 Meq Kcl) 1,000 mls @ 75 mls/hr IV ASDIRECTED [facility] Potassium Chloride 20 meq/Lidocaine HCl 2 ml/ Sodium Chloride 112 mls @ 56 mls/hr IV Q2H [facility] Stop: 10/09/19 13:59 Last Admin: 10/09/19 13:07 Dose: 56 mls/hr Documented by: Ceftriaxone Sodium 2 gm/ (Sodium Chloride) 50 mls @ 100 mls/hr IV ONETIME ONE Stop: 10/09/19 17:29 Last Admin: 10/09/19 17:08 Dose: 100 mls/hr Documented by: Lorazepam (Ativan) 1 mg PO ONETIME ONE Stop: 10/07/19 19:43 Last Admin: 10/07/19 19:59 Dose: 1 mg Documented by: Lorazepam (Ativan) 1 mg PO Q2H PRN PRN Reason: Withdrawal Symptoms Lorazepam (Ativan) 1 mg IVPUSH Q2H PRN PRN Reason: Withdrawal Symptoms Last Admin: 10/07/19 22:53 Dose: 1 mg Documented by: Magnesium Oxide (Magnesium Oxide) 800 mg PO ONETIME ONE Stop: 10/07/19 20:00 Last Admin: 10/07/19 20:10 Dose: 800 mg Documented by: Pantoprazole Sodium (Protonix) 40 mg PO DAILY [facility] Last Admin: 10/07/19 22:11 Dose: 40 mg Documented by: Penicillin V Potassium (Veetids) 500 mg PO ONETIME ONE Stop: 10/07/19 20:03 Last Admin: 10/07/19 20:10 Dose: 500 mg Documented by: Potassium Chloride (Klor-Con M20) 40 meq PO BID [facility] Last Admin: 10/07/19 22:11 Dose: 40 meq Documented by: Prednisolone (Orapred 15 Mg/5ml Soln) 40 mg PO DAILY [facility] Last Admin: 10/07/19 22:11 Dose: 40 mg Documented by: - Exam General: Obtunded Lungs: Stridor Cardiovascular: Regular Rate, Regular Rhythm GI/Abdominal Exam: Normal Bowel Sounds, Soft, Non-Tender, No Organomegaly, No Distention, No Abnormal Bruit, No Mass, Pelvis Stable Skin: Warm, Dry, Intact Psy/Mental Status: Other (Liver failure with no mentally no respose to verbal stimuli) Sepsis Event Note - Evaluation Sepsis Screening Result: Severe Sepsis Risk - Focused Exam Vital Signs: Vital Signs Temp Resp BP Pulse Ox 10/11/19 08:00 98.4 F 77 H 122/73 95 10/11/19 07:00 69 H 122/73 97 10/11/19 06:00 62 H 112/67 93 L 10/11/19 05:00 47 H 121/62 95 10/11/19 04:00 97.6 F 68 H 124/61 93 L 10/11/19 03:00 46 H 113/66 90 L 10/11/19 02:00 60 H 107/65 92 L 10/11/19 01:00 39 H 114/70 90 L 10/11/19 00:00 98.2 F 45 H 114/76 93 L 10/10/19 23:00 53 H 114/72 95 10/10/19 22:00 48 H 122/69 97 10/10/19 21:00 60 H 122/70 95 - Problem List Review Problem List Initiated/Reviewed/Updated: Yes - My Orders Last 24 Hours: My Active Orders 10/10/19 17:00 [id number] [Rocephin] 1 gm Sodium Chloride 0.9% [Normal Saline] 50 ml IV Q24H 10/11/19 01:16 Dimethicone/Zinc Oxide [Rash Relief-Zinc Oxide [place]] 1 gm TOP ASDIRECTED PRN 10/11/19 05:11 CXR [Chest 1V Frontal] [CR] Routine 10/11/19 08:00 Consult to Hospice [CONS] Routine - Plan Plan:: Assessment/Plan #1. 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 Bilirubin is 15.4 from 13.9 yesterday was 10 upon admission. Liver functions elevated but stable. No Ascetic fluid evident. Mental deterioration secondary t o liver failure. CT headvwas unremarkable. Ammonia level <10 yesterday. #2. Lung mass -infiltrate. Continue with Rocephin. Overall prognosis is poor. I feel hospice is appropriate. will contact the family.
[2019-10-11] MEDS: Folic Acid 1 MG Tab PO SCH (09:14)
[2019-10-11] MEDS: prednisoLONE 15 MG/5 ML Soln UD Cup PO SCH (09:14)
--- NOTE | 2019-10-11 09:30 | CR ---
CHEST: Portable 10/11/2019 at 3:54 AM CLINICAL HISTORY:Infiltrate COMPARISON:10/09/2019 FINDINGS: There is moderate infiltrate in the right lower lung field. This is increased slightly since prior study. There is diffuse left lung infiltrate similar to prior study. Heart and pulmonary vascularity appear normal Impression: Persistent bilateral pulmonary infiltrates. There might be a slight increase in density in the right lower lung
[2019-10-11] MEDS: Thiamine 100 MG in Sodium Chloride 0.9% 50 ML IV SCH (10:03)
[2019-10-11] MEDS: Morphine 10 MG/0.5 ML Oral Syringe PO PRN ×5 (16:05→20:55)
--- NOTE | 2019-10-11 17:40 | PCM.PN ---
- General Info Date of Service: 10/11/19 - Review of Systems General: Reports: Weakness Psychiatric: Reports: Other (unresponsive to any stimuli) - Patient Data Vitals - Most Recent: Last Vital Signs Temp 98 F 10/11/19 12:00 Pulse 111 H 10/10/19 18:00 Resp 82 H 10/11/19 14:00 BP 108/68 10/11/19 14:00 Pulse Ox 96 10/11/19 14:00 Weight - Most Recent: 154 lb 12.232 oz I&O - Last 24 Hours: Intake & Output 10/11/19 10/11/19 10/11/19 06:59 14:59 22:59 Intake Total 2663 Balance 2663 Lab Results Last 24 Hours: Laboratory Results - last 24 hr 10/11/19 10/11/19 10/11/19 Range/Units 04:20 04:20 04:20 WBC 8.5 (4.5-11.0) K/uL RBC 3.16 L (4.30-5.90) M/uL Hgb 10.3 L (12.0-15.0) g/dL Hct 31.9 L (40.0-54.0) % MCV 101 H (80-98) fL MCH 33 H (27-31) pg MCHC 32 (32-36) % Plt Count 120 L (150-400) K/uL Add Manual Diff Yes Neutrophils % (Manual) 56 (36-66) % Band Neutrophils % 9 (5-11) % Lymphocytes % (Manual) 25 (24-44) % Monocytes % (Manual) 10 H (2-6) % Anisocytosis Few Target Cells Few Stomatocytes Many H PT 31.4 H (9.5-12.0) sec INR 2.94 H (0.80-1.20) Puncture Site Rt brachial ABG pH 7.437 (7.350-7.450) ABG pCO2 37.8 (35.0-42.0) mmHg ABG pO2 54.4 L (75.0-100.0) mmHg ABG HCO3 25.1 (22.0-26.0) mmol/L ABG Total CO2 23.0 (23.0-27.0) mmol/L ABG O2 Saturation 87.6 L (95.0-98.0) % ABG O2 Content 12.7 L (15.0-23.0) %vol ABG Base Excess 1.4 mm/L ABG Hemoglobin 10.5 L (13.5-18.0) g/dL ABG Oxyhemoglobin 86.1 % ABG Carboxyhemoglobin 1.3 (0.0-1.6) % ABG Methemoglobin 0.4 % [place] Test Passed O2 Delivery Device Nasal cannula Oxygen Flow Rate 3.0 L Sodium (140-148) mmol/L Potassium (3.6-5.2) mmol/L Chloride (100-108) mmol/L Carbon Dioxide (21-32) mmol/L Anion Gap (5.0-14.0) mmol/L BUN (7-18) mg/dL Creatinine (0.8-1.3) mg/dL Est Cr Clr Drug Dosing mL/min Estimated GFR (MDRD) (>60) Glucose (74-106) mg/dL Calcium (8.5-10.1) mg/dL Total Bilirubin (0.2-1.0) mg/dL AST (15-37) U/L ALT (12-78) U/L Alkaline Phosphatase (46-116) U/L Total Protein (6.4-8.2) g/dL Albumin (3.4-5.0) g/dL Globulin (2.3-3.5) g/dL Albumin/Globulin Ratio (1.2-2.2) 04 Range/Units 04:30 WBC (4.5-11.0) K/uL RBC (4.30-5.90) M/uL Hgb (12.0-15.0) g/dL Hct (40.0-54.0) % MCV (80-98) fL MCH (27-31) pg MCHC (32-36) % Plt Count (150-400) K/uL Add Manual Diff Neutrophils % (Manual) (36-66) % Band Neutrophils % (5-11) % Lymphocytes % (Manual) (24-44) % Monocytes % (Manual) (2-6) % Anisocytosis Target Cells Stomatocytes PT (9.5-12.0) sec INR (0.80-1.20) Puncture Site ABG pH (7.350-7.450) ABG pCO2 (35.0-42.0) mmHg ABG pO2 (75.0-100.0) mmHg ABG HCO3 (22.0-26.0) mmol/L ABG Total CO2 (23.0-27.0) mmol/L ABG O2 Saturation (95.0-98.0) % ABG O2 Content (15.0-23.0) %vol ABG Base Excess mm/L ABG Hemoglobin (13.5-18.0) g/dL ABG Oxyhemoglobin % ABG Carboxyhemoglobin (0.0-1.6) % ABG Methemoglobin % [place] Test O2 Delivery Device Oxygen Flow Rate L Sodium 152 H (140-148) mmol/L Potassium 4.1 (3.6-5.2) mmol/L Chloride 117 H (100-108) mmol/L Carbon Dioxide 24 (21-32) mmol/L Anion Gap 15.1 H (5.0-14.0) mmol/L BUN 14 (7-18) mg/dL Creatinine 0.8 (0.8-1.3) mg/dL Est Cr Clr Drug Dosing 125.53 mL/min Estimated GFR (MDRD) > 60 (>60) Glucose 91 (74-106) mg/dL Calcium 8.2 L (8.5-10.1) mg/dL Total Bilirubin 15.4 H (0.2-1.0) mg/dL AST 144 H (15-37) U/L ALT 150 H (12-78) U/L Alkaline Phosphatase 287 H (46-116) U/L Total Protein 5.2 L (6.4-8.2) g/dL Albumin 1.8 L (3.4-5.0) g/dL Globulin 3.4 (2.3-3.5) g/dL Albumin/Globulin Ratio 0.5 L (1.2-2.2) Med Orders - Current: Current Medications Morphine Sulfate (Morphine 10 Mg/0.5 Ml Oral Syringe) 5 - 10 mg PO Q1H PRN PRN Reason: Dyspnea Last Admin: 10/11/19 17:17 Dose: 10 mg Documented by: Discontinued Medications Albuterol/Ipratropium (Duoneb 3.0-0.5 Mg/3 Ml) 3 ml NEB Q4H PRN PRN Reason: Shortness of Breath Last Admin: 10/10/19 01:48 Dose: 3 ml Documented by: Clonidine HCl (Catapres) 0.1 mg PO Q6H PRN PRN Reason: Adrenergic Systems Dimethicone/Zinc Oxide (Rash Relief-Zinc Oxide [place]) 1 gm TOP ASDIRECTED PRN PRN Reason: Rash Last Admin: 10/11/19 02:43 Dose: 1 applic Documented by: Folic Acid (Folic Acid) 1 mg PO DAILY [facility] Last Admin: 10/11/19 09:14 Dose: Not Given Documented by: Gabapentin (Neurontin) 400 mg PO Q8H [facility] Stop: 10/11/19 22:01 Last Admin: 10/11/19 13:13 Dose: Not Given Documented by: Haloperidol Lactate (Haldol) 2.5 mg IVPUSH Q1H PRN PRN Reason: Other Last Admin: 10/09/19 23:50 Dose: 2.5 mg Documented by: Multivitamins/Minerals 10 ml/Thiamine HCl 200 mg/ Folic Acid 1 mg/ Magnesium Sulfate 2 gm/ Dextrose/Lactated Ringer' s 1,016.2 mls @ 500 mls/hr IV ONETIME ONE Stop: 10/07/19 15:50 Last Admin: 10/07/19 14:20 Dose: 500 mls/hr Documented by: Potassium Chloride/Sodium Chloride (Normal Saline With 20 Meq Kcl) 1,000 mls @ 1,000 mls/hr IV ASDIRECTED [facility] Last Admin: 10/07/19 19:59 Dose: 1,000 mls/hr Documented by: Magnesium Sulfate 2 gm/ Premix 50 mls @ 12.5 mls/hr IV ONETIME ONE Stop: 10/07/19 23:58 Last Admin: 10/07/19 20:17 Dose: 25 mls/hr Documented by: Thiamine HCl 100 mg/ Sodium (Chloride) 51 mls @ 100 mls/hr IV DAILY [facility] Sodium Chloride (Normal Saline) 1,000 mls @ 125 mls/hr IV ASDIRECTED [facility] Last Admin: 10/08/19 04:52 Dose: 125 mls/hr Documented by: Albumin Human (Albumin 25%) 25 gm in 100 mls @ 25 mls/hr IV ONETIME ONE Stop: 10/08/19 01:46 Last Admin: 10/07/19 22:05 Dose: 25 mls/hr Documented by: Thiamine HCl 100 mg/ Sodium (Chloride) 51 mls @ 100 mls/hr IV Q24H [facility] Last Admin: 10/08/19 10:08 Dose: 100 mls/hr Documented by: Thiamine HCl 100 mg/ Sodium (Chloride) 51 mls @ 100 mls/hr IV Q24H [facility] Last Admin: 10/11/19 10:03 Dose: 100 mls/hr Documented by: Sodium Chloride (Normal Saline) 1,000 mls @ 75 mls/hr IV ASDIRECTED [facility] Last Admin: 10/09/19 00:36 Dose: 75 mls/hr Documented by: Potassium Chloride/Sodium Chloride (Normal Saline With 40 Meq Kcl) 1,000 mls @ 75 mls/hr IV ASDIRECTED [facility] Last Admin: 10/11/19 02:40 Dose: 75 mls/hr Documented by: Potassium Chloride/Sodium Chloride (Normal Saline With 40 Meq Kcl) 1,000 mls @ 75 mls/hr IV ASDIRECTED [facility] Potassium Chloride 20 meq/Lidocaine HCl 2 ml/ Sodium Chloride 112 mls @ 56 mls/hr IV Q2H [facility] Stop: 10/09/19 13:59 Last Admin: 10/09/19 13:07 Dose: 56 mls/hr Documented by: Ceftriaxone Sodium 2 gm/ (Sodium Chloride) 50 mls @ 100 mls/hr IV ONETIME ONE Stop: 10/09/19 17:29 Last Admin: 10/09/19 17:08 Dose: 100 mls/hr Documented by: Ceftriaxone Sodium 1 gm/ (Sodium Chloride) 50 mls @ 100 mls/hr IV Q24H [facility] Last Admin: 10/10/19 17:01 Dose: 100 mls/hr Documented by: Lorazepam (Ativan) 1 mg PO ONETIME ONE Stop: 10/07/19 19:43 Last Admin: 10/07/19 19:59 Dose: 1 mg Documented by: Lorazepam (Ativan) 1 mg PO Q2H PRN PRN Reason: Withdrawal Symptoms Lorazepam (Ativan) 1 mg IVPUSH Q2H PRN PRN Reason: Withdrawal Symptoms Last Admin: 10/07/19 22:53 Dose: 1 mg Documented by: Lorazepam (Ativan) 0 mg PO ASDIRECTED [facility]; Protocol Lorazepam (Ativan) 0 mg IV ASDIRECTED [facility]; Protocol Last Admin: 10/10/19 16:59 Dose: 1 mg Documented by: Magnesium Oxide (Magnesium Oxide) 800 mg PO ONETIME ONE Stop: 10/07/19 20:00 Last Admin: 10/07/19 20:10 Dose: 800 mg Documented by: Morphine Sulfate (Morphine) 2 mg IVPUSH Q2H PRN PRN Reason: Pain (severe 7-10) Last Admin: 10/11/19 10:48 Dose: 2 mg Documented by: Ondansetron HCl (Zofran Odt) 4 mg PO Q6H PRN PRN Reason: Nausea able to take PO Ondansetron HCl (Zofran) 4 mg IV Q4H PRN PRN Reason: Nausea/Vomiting Oxycodone HCl (Oxycodone) 5 mg PO Q4H PRN PRN Reason: Pain (moderate 4-6) Pantoprazole Sodium (Protonix) 40 mg PO DAILY [facility] Last Admin: 10/07/19 22:11 Dose: 40 mg Documented by: Pantoprazole Sodium (Protonix) 40 mg PO BEDTIME [facility] Last Admin: 10/10/19 23:27 Dose: Not Given Documented by: Penicillin V Potassium (Veetids) 500 mg PO ONETIME ONE Stop: 10/07/19 20:03 Last Admin: 10/07/19 20:10 Dose: 500 mg Documented by: Potassium Chloride (Klor-Con M20) 40 meq PO BID [facility] Last Admin: 10/07/19 22:11 Dose: 40 meq Documented by: Potassium Chloride (Klor-Con M20) 40 meq PO BIDMEALS [facility] Last Admin: 10/11/19 07:48 Dose: Not Given Documented by: Prednisolone (Orapred 15 Mg/5ml Soln) 40 mg PO DAILY [facility] Last Admin: 10/07/19 22:11 Dose: 40 mg Documented by: Prednisolone (Orapred 15 Mg/5ml Soln) 40 mg PO DAILY [facility] Last Admin: 10/11/19 09:14 Dose: Not Given Documented by: Sodium Chloride (Saline Flush) 10 ml FLUSH ASDIRECTED PRN PRN Reason: Keep Vein Open Last Admin: 10/07/19 14:54 Dose: 10 ml Documented by: - Exam General: Obtunded HEENT: Scleral Icterus Lungs: Rhonchi, Other (coarse breath sounds bilaterally with a rapid rate, PT 15 60/m) Cardiovascular: Tachycardia Neurological: Other (decreased sensation to pain) Psy/Mental Status: Other (encephalopathy due to liver dysfunction) Sepsis Event Note - Evaluation Sepsis Screening Result: Severe Sepsis Risk - Focused Exam Vital Signs: Vital Signs Temp Resp BP Pulse Ox 10/11/19 14:00 82 H 108/68 96 10/11/19 13:00 80 H 102/67 95 10/11/19 12:00 98 F 83 H 102/70 95 10/11/19 11:00 78 H 114/70 94 L 10/11/19 10:00 80 H 123/74 94 L 10/11/19 09:00 73 H 119/67 94 L 10/11/19 08:00 98.4 F 77 H 122/73 95 10/11/19 07:00 69 H 122/73 97 10/11/19 06:00 62 H 112/67 93 L - Problem List Review Problem List Initiated/Reviewed/Updated: Yes - My Orders Last 24 Hours: My Active Orders 10/11/19 08:00 Consult to Hospice [CONS] Routine 10/11/19 15:13 Morphine [Morphine 10 MG/0.5 ML Oral Syringe] 5 - 10 mg PO Q1H PRN 10/11/19 16:11 Code Status [Resuscitation Status] Routine - Plan Plan:: Assessment/Plan #1. 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 Bilirubin is 15.4 from 13.9 yesterday was 10 upon admission. Liver functions elevated but stable. No Ascetic fluid evident. Mental deterioration secondary to liver failure. CT headvwas unremarkable. Ammonia level <10 yesterday. #2. Lung mass -infiltrate. Continue with Rocephin. Overall prognosis is poor. I feel hospice is appropriate. will contact the family. Afternoon rounds. I spoke with the family and were in the room and feel that there is no recovery. We stopped all heroics including the antibiotics and it's up to the family if they want the oxygen stopped. His prognosis is very poor and expect a final demise.
[2019-10-11 22:04] VITALS: BP 101/58
== END 2019-10-12 02:16 | disposition expired | DRG 432 ==
LOC: JP.ED 12:31 → JP.ICU 21:08
PROVIDERS: ADMIT Family Medicine; ATTEND Hospitalist
DX: K70.10 Alcoholic hepatitis without ascites (principal); K72.00 Acute and subacute hepatic failure without coma; J18.9 Pneumonia, unspecified organism; F10.221 Alcohol dependence with intoxication delirium; E87.1 Hypo-osmolality and hyponatremia; F10.231 Alcohol dependence with withdrawal delirium; K70.30 Alcoholic cirrhosis of liver without ascites; Z51.5 Encounter for palliative care; E83.42 Hypomagnesemia; E77.8 Other disorders of glycoprotein metabolism; E86.0 Dehydration; R41.83 Borderline intellectual functioning; E87.6 Hypokalemia; H54.7 Unspecified visual loss; I10 Essential (primary) hypertension; G47.30 Sleep apnea, unspecified; M19.90 Unspecified osteoarthritis, unspecified site; F32.9 Major depressive disorder, single episode, unspecified; M54.9 Dorsalgia, unspecified; G89.29 Other chronic pain; F98.8 Other specified behavioral and emotional disorders with onset usually occurring in childhood and adolescence; F90.9 Attention-deficit hyperactivity disorder, unspecified type; F41.9 Anxiety disorder, unspecified; R91.8 Other nonspecific abnormal finding of lung field; Y90.0 Blood alcohol level of less than 20 mg/100 ml; Z79.899 Other long term (current) drug therapy; Z98.890 Other specified postprocedural states; Z86.19 Personal history of other infectious and parasitic diseases; Z91.5 Personal history of self-harm
CPT/HCPCS: 36415; 36600; 70450; 70450-26; 71045; 71045-26; 71250; 71250-26; 80048; 80053; 80076; 80305-QW; 80307; 82140; 82803; 83735; 84100; 85025; 85610; 94640; 96365; 96366; 96367; 99284-25; 99285; A9270-GY; J0696; J1630; J2001; J2060; J2270; J3411; J3475; J3480; J3490; J7030; J7050; J7121; J7620-GY; P9047